=== PATIENT | female | born 1975 | race Caucasian/White ===

== ENCOUNTER 2017-04-30 08:01 | Emergency (ER) | payer MEDICAID, SELFPAY ==
[2017-04-30 08:03] VITALS: BP 126/86; PULSE 102; RESP 31; TEMP 37.6; O2SAT 94; BMI 43.8
[2017-04-30 08:05] VITALS: O2SAT 93
--- NOTE | 2017-04-30 08:17 | EKG12_ITS ---
Test Reason : DIZZY Blood Pressure : / mmHG Vent. Rate : 093 BPM Atrial Rate : 093 BPM P-R Int : 166 ms QRS Dur : 088 ms QT Int : 362 ms P-R-T Axes : 068 057 051 degrees QTc Int : 450 ms Normal sinus rhythm Normal ECG Confirmed by ANNI CROSS, MIGUEL ([id number]), editor map EVON KIRK ([id number]) on 05/01/2017 2:28:38 PM Referred By: TAMMY Confirmed By:MIGUEL HUTTON MD
--- NOTE | 2017-04-30 08:20 | ED.DCSUM_ITS ---
- ER Visit Summary Date of Service: 04/30/17 Chief Complaint: Cough, lightheadedness, near syncope History of Present Illness: The patient is a 41 F who is otherwise healthy presents to the emergency department with influenza type symptoms. Patient states her symptoms began Thursday. She had fever, chills, and myalgias. She states that she had diffuse muscle aches. She had a scant cough. States her cough worsened over that night. She went to urgent care on Thursday morning was diagnosed with bronchitis. She was placed on Tessalon Perles, prednisone, doxycycline. She feels like her cough is improving but she has continued to have fevers and chills. She states she had a difficult time sleeping last night because of the symptoms. When she woke this morning, she was feeling very lightheaded. She states she got up to go use the restroom and felt as if she was going to pass out. She denies any chest pain. She denies any shortness of breath. She states that she feels better now since coming to the emergency department. She has had 2 episodes of vomiting that were not associated with cough. Physical Examination: Vital signs reviewed General: Well-nourished, well-developed Head: Normocephalic, atraumatic Eyes: Pupils equal and reactive, extraocular muscles intact Neck, supple, no lymphadenopathy Heart: Regular rate and rhythm Respiratory: No distress, clear bilaterally Abdomen: Soft, nontender, nondistended, no peritoneal signs Back: Nontender Extremities: Nontender, no edema, no cords Skin: Normal color no rash Neuro: Alert and oriented, no focal or lateralizing deficits Test Results: [] Emergency Department Course and Treatment: Patient symptoms do seem consistent with influenza. IV was established. Screening labs relatively unremarkable. She does have a slight leukopenia. Creatinine was normal. EKG is also normal. There is no prolonged QT, WPW, or other dangerous abnormalities. Her chest x- ray shows questionable infiltrate in the right lateral aspect. The patient is on day 4 of oral antibiotics. She has no hypoxia. Her influenza test was negative, but again in light of her symptoms I still feel that this is more likely influenza than pneumonia. Again, she has already been treated for her pneumonia and will continue her antibiotics. The patient was given IV fluids. She was ambulated. He was feeling markedly improved. She ambulated without symptoms. I did counselor education professor her on continuing her antibiotics even if she feels better. I will write the patient for some anti-emetics. She will continue aggressive oral hydration and antipyretics. She will be discharged home. Treatment Plan: [] Disposition: Discharge Impression: 1. Community-acquired pneumonia 2. Influenza 3. Hypokalemia 4. Lightheadedness This note was generated with [employer] dictation software. It may contain incorrect words, spelling, and punctuation that were not noted in review of the chart prior to signing ED Disposition - Plan for ED Patient: Chief Complaint: Shortness of Breath Instructions: ED Pneumonia Adult Prescriptions: Ondansetron [Zofran Odt] 4 mg PO Q8H PRN PRN #10 tab PRN Reason: Nausea Referrals: Mabel Obregon [Primary Care Provider] -
[2017-04-30 08:35] LABS: Absolute Lymphocyte Count 0.54 X10^3/ul (0.83-4.51); Absolute Neutrophil Count 2.7 X10^3/uL (2.0-7.7); Basophil# 0.01 X10^3/uL; Basophil% 0.3 % (0-1); Eosinophil# 0.01 X10^3/uL; Eosinophils% 0.3 % (0-5); Hematocrit 42.9 % (37-47); Hemoglobin 13.7 g/dl (12.0-15.0); Lymphocyte # 0.54 X10^3/ul (4.0); Lymphocyte % 15.4 % (19-41); Mean Corp Hgb Conc 31.9 g/gl (32-36); Mean Corpuscular Hgb 26.1 pg (27.0-32.0); Mean Corpuscular Volume 81.7 fL (81-99); Mean Platelet Vol. 10.9 fl (6.2-12.0); Monocyte# 0.22 X10^3/uL; Monocyte% 6.3 % (0-10); Neutrophil # 2.72 X10^3/uL (2.7-7.7); Neutrophil % 77.7 % (47-70); Platelet Count 188 K/mm3 (150-450); RBC Distribution Width CV 14.9 % (11.6-14.6); RBC Distribution Width SD 44.7 fl (35.1-43.9); Red Blood Count 5.25 M/mm3 (4.2-5.4); White Blood Count 3.5 K/mm3 (4.4-11.0)
[2017-04-30 08:36] LABS: Differential Indicated SCAN CRITERIA MET; POSITIVE COUNT NO; POSITIVE DIFFERENTIAL YES; POSITIVE MORPHOLOGY NO
[2017-04-30 08:50] LABS: ALB/GLOB Ratio 0.9 RATIO (0.9-2.4); AST(SGOT) 16 U/L (15-37); Alanine Aminotransfer ALT/SGPT 33 U/L (13-56); Albumin, Serum 3.6 g/dL (3.2-5.0); Alkaline Phosphatase 98 U/L (45-117); Anion Gap 11 (5-15); BUN 8 mg/dL (7-18); BUN/Creat Ratio 7.8 RATIO (10-20); Chloride 102 mmol/L (98-107); Creatinine, Serum 1.02 mg/dL (0.55-1.02); EST Glomerular Filtration Rate 64 mL/min (>60); Est Glom Filt Rate - Afr Amer 77 mL/min (>60); Estimated Creatinine Clearance 72.01 ml/min; Glucose 106 mg/dL (74-106); Potassium 3.3 mmol/L (3.5-5.1); Protein, Total 7.6 g/dL (6.4-8.2); Sodium Level 137 mmol/L (136-145)
--- NOTE | 2017-04-30 08:56 | RAD_ITS ---
STUDY: X-RAY CHEST REASON FOR EXAM: Female, 41 years old. Cough. Dizziness. Flulike symptoms. TECHNIQUE: PA and lateral views of the chest. COMPARISON: None. FINDINGS: EKG electrodes are seen. Focal area of infiltration in the lateral aspect of the right middle lobe. Hyperinflation. Scattered calcified granulomas. There is no demonstrated pleural abnormality. Normal size heart. Normal mediastinum and mike. Normal visualized pulmonary arteries. Normal visualized aortic arch and descending thoracic aorta. Normal visualized thoracic spine. Normal visualized ribs, clavicles, and shoulders. There is no demonstrated abnormality of the visualized soft tissue structures of the upper abdomen. RAD/Chest PA and Lateral IMPRESSION: I suspect focal infiltrate in the lateral aspect of the right middle lobe. Follow-up is recommended. Electronically Signed: Kevin Strong MD at 9:16 EST Tel [phone], Service support ,
[2017-04-30 09:28] VITALS: O2SAT 95
[2017-04-30] MEDS: 0.9% Normal Saline 1,000 ML 1000 ML IV (09:44)
[2017-04-30] MEDS: Acetaminophen 500 MG Tablet 1000 MG PO (09:44)
[2017-04-30 09:48] VITALS: BP 142/81; PULSE 90; RESP 23; O2SAT 95
[2017-04-30 10:42] VITALS: O2SAT 97
[2017-04-30 11:10] VITALS: PULSE 89; RESP 20; O2SAT 97
== END 2017-04-30 10:55 | disposition home or self-care (01) ==
PROVIDERS: Emergency Provider Emergency Medicine
DX: J18.9 Pneumonia, unspecified organism (principal); J11.1 Influenza due to unidentified influenza virus with other respiratory manifestations; E87.6 Hypokalemia; R42 Dizziness and giddiness; K21.9 Gastro-esophageal reflux disease without esophagitis; Z72.0 Tobacco use
CPT/HCPCS: 71046; 80053; 85025; 87804; 93005; 99285

== ENCOUNTER 2017-05-05 10:53 | Emergency (ER) | payer MEDICAID, SELFPAY ==
[2017-05-05 10:54] VITALS: BP 148/93; PULSE 79; RESP 18; TEMP 36.6; O2SAT 99; BMI 45.6
--- NOTE | 2017-05-05 11:15 | ED.VISSUMM ---
- ER Visit Summary Date of Service: 05/05/17 Chief Complaint: [Hives] History of Present Illness: The patient is a 41 F [resents the emergency department with hives. She got sick a week ago with sore throat cough runny nose. She started steroids and Tessalon Perles on Thursday after being seen in urgent care. She was brought here by ambulance on . At that time she was diagnosed with influenza and pneumonia. She has been on doxycycline. Her appetite has improved. She continues to have cough and runny nose. This morning she woke up with hives all over her chest and back and upper extremities. They were very itchy. She took a Benadryl but they continued. She was seen back at urgent care who referred her to the emergency department. She has had diarrhea. The cough is nonproductive. She is a smoker. Temperature has been no higher than 99.] Physical Examination: [] Blood pressure 148/93 other vitals within normal limits WN WD NAD PERRL EOMI mild conjunctival injection and periorbital edema and swelling MMM Clear rhinorrhea Serous otitis bilaterally voice is strong NECK supple and nontender, no masses pooling of secretions RRR no murmur rub or gallop, no peripheral edema, symmetric radial pulses CTAB no respiratory distress ABDOMEN is soft and nontender, normal bowel sounds, no distension, no rebound or guarding SKIN is warm and dry to urticarial rash on the chest back and upper extremities Alert and Oriented x3, CN II-XII in tact, no motor or sensory deficits, gait normal No lymphadenopathy Test Results: [] Emergency Department Course and Treatment: [Was given Solu-Medrol and Benadryl as well as fluids. Screening labs are unremarkable except for mild hypokalemia. Potassium was replaced with 40 mEq in the ED. I am unsure if this urticaria is from the doxycycline or from her viral illness. I will start her on a Medrol Dosepak and Benadryl. She will stop doxycycline and start Levaquin.] Treatment Plan: [] Disposition: [Discharge] Impression: [Urticaria] This note was generated with [employer] dictation software. It may contain incorrect words, spelling, and punctuation that were not noted in review of the chart prior to signing ED Disposition - Plan for ED Patient: Chief Complaint: Rash Referrals: Mabel Obregon [Family Provider] -
[2017-05-05] MEDS: 0.9% Normal Saline 1,000 ML 1000 ML IV (11:21)
[2017-05-05] MEDS: DiphenhydrAMINE 50 MG/ML Syringe 25 MG IV (11:21)
[2017-05-05] MEDS: MethylPREDNISolone 125 MG/2 ML Vial IV (11:22)
[2017-05-05 11:27] LABS: Absolute Lymphocyte Count 1.84 X10^3/ul (0.83-4.51); Absolute Neutrophil Count 5.3 X10^3/uL (2.0-7.7); Basophil# 0.01 X10^3/uL; Basophil% 0.1 % (0-1); Eosinophil# 0.02 X10^3/uL; Eosinophils% 0.3 % (0-5); Hematocrit 41.8 % (37-47); Hemoglobin 13.4 g/dl (12.0-15.0); Lymphocyte # 1.84 X10^3/ul (4.0); Lymphocyte % 24.2 % (19-41); Mean Corp Hgb Conc 32.1 g/gl (32-36); Mean Corpuscular Hgb 26.3 pg (27.0-32.0); Mean Platelet Vol. 10.3 fl (6.2-12.0); Monocyte# 0.41 X10^3/uL; Monocyte% 5.4 % (0-10); Neutrophil # 5.29 X10^3/uL (2.7-7.7); Neutrophil % 69.7 % (47-70); POSITIVE COUNT NO; POSITIVE DIFFERENTIAL NO; POSITIVE MORPHOLOGY NO; Platelet Count 254 K/mm3 (150-450); RBC Distribution Width CV 14.5 % (11.6-14.6); RBC Distribution Width SD 43.1 fl (35.1-43.9); White Blood Count 7.6 K/mm3 (4.4-11.0)
[2017-05-05 11:43] LABS: Anion Gap 8 (5-15); BUN 11 mg/dL (7-18); BUN/Creat Ratio 13.4 RATIO (10-20); Calcium,Total 8.5 mg/dL (8.5-10.1); Chloride 101 mmol/L (98-107); Creatinine, Serum 0.82 mg/dL (0.55-1.02); EST Glomerular Filtration Rate 82 mL/min (>60); Est Glom Filt Rate - Afr Amer 100 mL/min (>60); Estimated Creatinine Clearance 86.23 ml/min; Glucose 91 mg/dL (74-106); Potassium 3.2 mmol/L (3.5-5.1); Sodium Level 136 mmol/L (136-145)
--- NOTE | 2017-05-05 12:00 | ED.DEP ---
ED Disposition - Plan for ED Patient: Chief Complaint: Rash Instructions: ED Urticaria Prescriptions: Guaifenesin/Codeine Phosphate [Codeine-Guaifen 10-100 mg/5 ml] 5 ml PO Q8H PRN PRN #100 ml PRN Reason: Cough DiphenhydrAMINE [Benadryl] 25 mg PO TID PRN PRN #20 capsule PRN Reason: Itching Levofloxacin [Levaquin] 500 mg PO DAILY 5 Days #5 tablet MethylPREDNISolone DosePak [Medrol DosePak] 4 mg PO UD #1 box Referrals: [facility]Mabel Lacey [Family Provider] - 3-5 Days if not improving
[2017-05-05 12:10] VITALS: BP 152/93; PULSE 77; RESP 16; O2SAT 98
== END 2017-05-05 12:20 | disposition home or self-care (01) ==
LOC: ED 11:23
PROVIDERS: Emergency Provider Emergency Medicine; PCP Family Medicine
DX: L50.9 Urticaria, unspecified (principal); F41.9 Anxiety disorder, unspecified; Z72.0 Tobacco use
CPT/HCPCS: 80048; 85025; 96361; 96374; 96375; 99283; J7030; A4216

== ENCOUNTER 2017-09-19 05:18 | Emergency (ER) | payer MEDICAID, SELFPAY ==
[2017-09-19 05:19] VITALS: BP 142/97; PULSE 95; RESP 20; TEMP 37.1; O2SAT 95; BMI 39.2
[2017-09-19 06:08] LABS: Absolute Lymphocyte Count 0.74 X10^3/ul (0.83-4.51); Absolute Neutrophil Count 1.4 X10^3/uL (2.0-7.7); Basophil# 0.02 X10^3/uL; Basophil% 0.8 % (0-1); Eosinophil# 0.02 X10^3/uL; Eosinophils% 0.8 % (0-5); Hematocrit 34.6 % (37-47); Hemoglobin 11.1 g/dl (12.0-15.0); Lymphocyte # 0.74 X10^3/ul (4.0); Lymphocyte % 30.8 % (19-41); Mean Corp Hgb Conc 32.1 g/gl (32-36); Mean Corpuscular Hgb 24.3 pg (27.0-32.0); Mean Corpuscular Volume 75.9 fL (81-99); Mean Platelet Vol. 9.6 fl (6.2-12.0); Monocyte# 0.18 X10^3/uL; Monocyte% 7.5 % (0-10); Neutrophil # 1.43 X10^3/uL (2.7-7.7); Neutrophil % 59.7 % (47-70); Platelet Count 181 K/mm3 (150-450); RBC Distribution Width CV 16.2 % (11.6-14.6); RBC Distribution Width SD 43.5 fl (35.1-43.9); Red Blood Count 4.56 M/mm3 (4.2-5.4); White Blood Count 2.4 K/mm3 (4.4-11.0)
[2017-09-19 06:10] LABS: POSITIVE COUNT NO; POSITIVE DIFFERENTIAL NO; POSITIVE MORPHOLOGY NO
[2017-09-19] MEDS: 0.9% Normal Saline 1,000 ML 1000 ML IV (06:21)
[2017-09-19] MEDS: Ondansetron 4 MG/2 ML Vial IV (06:22)
[2017-09-19] MEDS: Ketorolac 30 MG/ML Syringe IV (06:22)
[2017-09-19 06:23] LABS: AST(SGOT) 18 U/L (15-37); Alanine Aminotransfer ALT/SGPT 27 U/L (13-56); Albumin, Serum 3.3 g/dL (3.2-5.0); Alkaline Phosphatase 93 U/L (45-117); Anion Gap 9 (5-15); BUN 5 mg/dL (7-18); BUN/Creat Ratio 5.4 RATIO (10-20); Bilirubin, Direct 0.09 mg/dL (0.00-0.30); Chloride 103 mmol/L (98-107); Creatinine, Serum 0.93 mg/dL (0.55-1.02); EST Glomerular Filtration Rate 71 mL/min (>60); Est Glom Filt Rate - Afr Amer 86 mL/min (>60); Estimated Creatinine Clearance 75.28 ml/min; Globulin 3.7 g/dL (2.2-4.2); Glucose 115 mg/dL (74-106); Lipase 80 U/L (73-393); Sodium Level 137 mmol/L (136-145)
[2017-09-19 06:35] LABS: Pregnancy, Serum, hCG Quali. NEGATIVE Negative (0-9 Nonpreg)
--- NOTE | 2017-09-19 07:00 | ED.DCSUM_ITS ---
- ER Visit Summary Date of Service: 09/19/17 Chief Complaint: Abdominal pain History of Present Illness: The patient is a [address] Hall. She reports that she has abdominal pain began 2 days ago. It is a continuous sharp epigastric pain. She reports that she feels bloated and gassy. Pain is 8 out of 10 at worst and 6 out of 10 currently. It is worsened by nothing including food. It is been unrelieved by Gas-X or Dulcolax. She reports is been nauseated and vomited once. No blood or emesis. Her last bowel was yesterday. She has had no diarrhea. No dysuria or frequency. She is on her menstrual period now. Patient has not had this previously. She denies any specific fatty or spicy food intolerance. Physical Examination: Vitals: Stable. Afebrile. General: Well-nourished and well-developed. Head: Normocephalic atraumatic. Neck: Supple, no lymphadenopathy. No JVD. Nontender. Cardiovascular: Regular rate and rhythm. No murmurs. Respiratory: No respiratory distress. Clear to auscultation bilaterally. Abdominal: Soft, mild epigastric tenderness to palpation, nondistended, normal bowel sounds. No guarding, rebound, or peritoneal signs. Back: Nontender. Extremities: Nontender, no edema. Skin: Normal color, no rash. Neurologic: Alert and oriented ?3. Cranial nerves II through XII are intact. Normal strength and sensation. Psych: Normal affect. Test Results: CBC is marked for white count of 2.4, hemoglobin of 11.1, hematocrit 34.6. Chem-7 marked potassium 3.0, glucose 115, BUN 5, calcium 8.0. LFTs are normal. Lipase normal. test is negative. Emergency Department Course and Treatment: Patient was treated with a dose of Toradol and Zofran IV. She was given a GI cocktail p.o. and had immediate relief. She refused potassium. Treatment Plan: Patient is already on omeprazole. She will have Zantac added to her regimen. Instructed follow-up Dr. Victoria in 1 week if not improving. Did discuss the possibility of endoscopy to rule out an ulcer. She was given the phone number for Dr. Lowe to follow-up with his as needed. Return to the emergency department for any worsening symptoms. Disposition: To home in improved and stable condition. Impression: 1. Epigastric abdominal pain. This note was generated with [employer] dictation software. It may contain incorrect words, spelling, and punctuation that were not noted in review of the chart prior to signing ED Disposition - Plan for ED Patient: Disposition: Home or Assisted Living Chief Complaint: Abd Pain Instructions: ED PUD Vs Gastritis Prescriptions: Ranitidine [Zantac] 300 mg PO DAILY #30 tablet Referrals: Elfego Hall MD [Primary Care Provider] - 1 Week if not improving Melinda Lowe MD [STAFF PHYSICIAN] -
[2017-09-19 07:22] VITALS: BP 137/76; PULSE 74; RESP 18; O2SAT 99
[2017-09-19 07:23] VITALS: BP 137/76; PULSE 74; RESP 18; O2SAT 99
== END 2017-09-19 07:23 | disposition home or self-care (01) ==
PROVIDERS: Emergency Provider Emergency Medicine; PCP Family Medicine
DX: R10.13 Epigastric pain (principal); R11.2 Nausea with vomiting, unspecified; R51 Headache; K21.9 Gastro-esophageal reflux disease without esophagitis; F17.200 Nicotine dependence, unspecified, uncomplicated
CPT/HCPCS: 80048; 80076; 83690; 84703; 85025; 99285; J7030; J2405

== ENCOUNTER 2017-12-09 13:04 | Emergency (ER) | payer MEDICAID, SELFPAY ==
[2017-12-09 13:05] VITALS: BP 164/93; PULSE 77; RESP 18; TEMP 36.6; O2SAT 98; BMI 37.1
--- NOTE | 2017-12-09 13:08 | EKG12_ITS ---
Test Reason : CP FOR 3 WEEKS Blood Pressure : / mmHG Vent. Rate : 086 BPM Atrial Rate : 086 BPM P-R Int : 170 ms QRS Dur : 086 ms QT Int : 406 ms P-R-T Axes : 060 060 053 degrees QTc Int : 485 ms Normal sinus rhythm Prolonged QT Abnormal ECG Confirmed by DARRELL CROSS, FINA ([id number]), photo editor EVON KIRK ([id number]) on 12/10/2017 1:32:36 PM Referred By: NAHUM Confirmed By:FINA RAMÍREZ MD
--- NOTE | 2017-12-09 13:12 | RAD_ITS ---
STUDY: X-RAY CHEST REASON FOR EXAM: Female, 42 years old. 2 week history of chest pain. TECHNIQUE: Single AP portable view of the chest. COMPARISON: Comparison is made with prior study dated April 30, 2017. FINDINGS: Hyperinflation. The lungs are clear. There is no demonstrated pleural abnormality. Normal size heart. Normal mediastinum and mike. Normal visualized pulmonary arteries. Normal visualized aortic arch and descending thoracic aorta. Normal visualized thoracic spine. Normal visualized ribs, clavicles, and shoulders. There is no demonstrated abnormality of the visualized soft tissue structures of the upper abdomen. RAD/Chest 1 View (Portable) IMPRESSION: Hyperinflation. Electronically Signed: Kevin Strong MD at 14:11 EDT Tel [phone], Service support ,
[2017-12-09 13:29] LABS: Absolute Neutrophil Count 4.5 X10^3/uL (2.0-7.7); Basophil% 0.3 % (0-1); Hematocrit 37.7 % (37-47); Hemoglobin 11.6 g/dl (12.0-15.0); Lymphocyte # 1.44 X10^3/ul (4.0); Lymphocyte % 21.8 % (19-41); Mean Corp Hgb Conc 30.8 g/gl (32-36); Mean Corpuscular Hgb 23.4 pg (27.0-32.0); Monocyte% 7.3 % (0-10); Neutrophil # 4.54 X10^3/uL (2.7-7.7); Neutrophil % 68.4 % (47-70); Platelet Count 266 K/mm3 (150-450); RBC Distribution Width CV 16.5 % (11.6-14.6); Red Blood Count 4.96 M/mm3 (4.2-5.4); White Blood Count 6.6 K/mm3 (4.4-11.0)
[2017-12-09 13:30] LABS: Absolute Lymphocyte Count 1.44 X10^3/ul (0.83-4.51); Basophil# 0.02 X10^3/uL; Eosinophil# 0.13 X10^3/uL; Monocyte# 0.48 X10^3/uL
[2017-12-09 13:32] LABS: POSITIVE COUNT NO; POSITIVE DIFFERENTIAL NO; POSITIVE MORPHOLOGY NO
[2017-12-09 13:44] LABS: Anion Gap 10 (5-15); BUN 7 mg/dL (7-18); BUN/Creat Ratio 8.3 RATIO (10-20); Calcium,Total 8.5 mg/dL (8.5-10.1); Chloride 104 mmol/L (98-107); Creatinine, Serum 0.84 mg/dL (0.55-1.02); EST Glomerular Filtration Rate 79 mL/min (>60); Est Glom Filt Rate - Afr Amer 96 mL/min (>60); Estimated Creatinine Clearance 83.34 ml/min; Glucose 100 mg/dL (74-106); Potassium 3.6 mmol/L (3.5-5.1); Sodium Level 138 mmol/L (136-145)
[2017-12-09 14:16] VITALS: BP 155/74; PULSE 86; RESP 16; O2SAT 100
[2017-12-09 14:27] LABS: D-Dimer Quantitative (DVT/PE) 1.05 FEU/ug/m (0.27-0.49)
--- NOTE | 2017-12-09 14:29 | CT_ITS ---
STUDY: CTA CHEST REASON FOR EXAM: Female, 42 years old. 2 week history of intermittent chest pain. Elevated d-dimer. RADIATION DOSAGE (If Supplied By Facility): CTDIvol = ( 13.4 ) mGy, DLP = ( 698.11 ) mGycm TECHNIQUE: The examination was performed with the intravenous administration of 100 ml of Isovue 370 contrast material. Post-processing of the angiographic images was performed, with multiplanar reformation and 3D reconstruction. Individualized dose optimization techniques were used for this CT. COMPARISON: None. FINDINGS: Small bilateral axillary lymph nodes. Small nonocclusive intraluminal filling defects are seen in the branches of the right interlobar artery. Nonocclusive intraluminal filling defects in the right upper lobe pulmonary arterial branches. Normal thoracic aorta and visualized great vessels. There is no demonstrated aortic dissection. Normal heart and pericardium. Normal mediastinum. Normal hilar regions. Normal visualized trachea and bronchi. The lungs are well expanded. Normal pulmonary parenchyma. Normal pleura. Normal chest wall structures. Normal osseous structures. Normal visualized upper abdomen. CT/CTA Chest W/WO Contrast IMPRESSION: Nonocclusive intraluminal filling defects in branches of the right interlobar pulmonary artery as well as branches of the right upper lobe pulmonary artery. Electronically Signed: Kevin Strong MD at 15:18 EDT Tel [phone], Service support ,
[2017-12-09] MEDS: hydrOXYzine PAM 25 MG Capsule PO (14:36)
--- NOTE | 2017-12-09 15:54 | ED.DCSUM_ITS ---
- ER Visit Summary Date of Service: 12/09/17 Chief Complaint: [Chest pain] History of Present Illness: The patient is a 42 F [presented to the emergency department chest discomfort started 2 weeks ago. Patient's had intermittent pain lasting up to 45 seconds at the time. Patient describes it as sharp and stabbing. Patient now having the pain about 3-5 times a day. Times pain radiates to her left arm. Patient at times will feel slightly diaphoretic. She denies any significant shortness of breath. She has had a chronic cough. Patient is a smoker. Patient does have a history of hypertension, anxiety, and GERD. Patient states that this does not feel like GERD or her anxiety. Patient has not had recent travel or surgery. She has no history of PE or DVT.] Physical Examination: [HEENT-PERRLA, EOMI. Cranial nerves II through XII grossly intact. TMs clear. Mucous membranes moist. No adenopathy. Cardiovascular-regular rate and rhythm without murmur or ectopy Lungs-clear to auscultation, chest wall stable without crepitus or subcu emphysema Abdomen-normoactive bowel sounds, soft, nontender, no rebound or rigidity, no peritoneal signs. Extremities-intact ?4, normal range of motion, normal pulses, atraumatic] Test Results: [EKG obtained on arrival showed a sinus rhythm with a ventricular rate of 86 bpm with no acute I segment changes. CBC with differential obtained showed a white count of 6.6, hemoglobin 11.6, hematocrit 38, platelets 266. Chemistries were normal. Troponin was less than 0.015. D-dimer obtained was elevated at over 1 therefore a CTA of the chest was obtained which showed nonocclusive filling defects in the right upper lobe as well as the right interlobar artery consistent with pulmonary emboli.] Emergency Department Course and Treatment: [Patient was advised of findings of CT. She will be started on Eliquis.] Treatment Plan: [I will attempt to discuss case with patient's primary care physician and will start patient on Eliquis. I feel patient can be treated as an outpatient as she is hemodynamically stable. Patient having no respiratory distress.] Disposition: [Discharged home in stable condition] Impression: [Pulmonary emboli right-sided] This note was generated with [employer] software. It may contain incorrect words, spelling, and punctuation that were not noted in review of the chart prior to signing ED Disposition - Plan for ED Patient: Chief Complaint: Chest Pain Referrals: Elfego Hall MD [Primary Care Provider] -
--- NOTE | 2017-12-09 15:54 | ED.DEP ---
ED Disposition - Plan for ED Patient: Chief Complaint: Chest Pain Instructions: Discharge Instructions for Pulmonary Embolism Prescriptions: Apixaban [Eliquis] 5 mg PO BID #70 tab Referrals: Elfego Hall MD [Primary Care Provider] - 3-5 Days
[2017-12-09] MEDS: APIXABAN 5 MG TABLET 10 MG PO (16:22)
[2017-12-09 16:23] VITALS: BP 140/79; PULSE 78; RESP 16; O2SAT 99
--- NOTE | 2017-12-09 16:27 | NURSING ---
[address] GRAMAJO OFFICE FOR DR ALEJANDRO. 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
== END 2017-12-09 16:29 | disposition home or self-care (01) ==
PROVIDERS: Emergency Provider Emergency Medicine; Family Provider Family Medicine; PCP Family Medicine
DX: I26.99 Other pulmonary embolism without acute cor pulmonale (principal); I10 Essential (primary) hypertension; K21.9 Gastro-esophageal reflux disease without esophagitis; Z72.0 Tobacco use; F41.9 Anxiety disorder, unspecified
CPT/HCPCS: 71045; 71275; 80048; 84484; 85025; 85379; 93005; 99284; Q9967

== ENCOUNTER 2018-05-01 18:21 | Emergency (ER) | payer MEDICAID, SELFPAY ==
[2018-05-01 18:21] VITALS: BMI 43.8
[2018-05-01 18:22] VITALS: BP 159/90; PULSE 79; RESP 18; TEMP 36.3; O2SAT 100; BMI 37.1
[2018-05-01 18:31] VITALS: BP 170/86; PULSE 80; RESP 17; O2SAT 98
--- NOTE | 2018-05-01 18:34 | RAD_ITS ---
STUDY: X-RAY CHEST REASON FOR EXAM: Female, 42 years old. Left-sided chest pain TECHNIQUE: AP COMPARISON: 12/09/2017 FINDINGS: EKG leads project over the chest. The lungs are clear and expanded. There is no demonstrated pleural abnormality. Normal size heart. Normal mediastinum and mike. Normal visualized pulmonary arteries. Normal visualized aortic arch and descending thoracic aorta. Normal visualized thoracic spine. Normal visualized ribs, clavicles, and shoulders. There is no demonstrated abnormality of the visualized soft tissue structures of the upper abdomen. RAD/Chest 1 View (Portable) IMPRESSION: Stable, nonacute portable x-ray examination of the chest. Electronically Signed: Sameer Steve MD at 18:55 EST , Service support ,
--- NOTE | 2018-05-01 18:34 | EKG12_ITS ---
Test Reason : CP Blood Pressure : / mmHG Vent. Rate : 079 BPM Atrial Rate : 079 BPM P-R Int : 192 ms QRS Dur : 090 ms QT Int : 420 ms P-R-T Axes : 060 062 048 degrees QTc Int : 481 ms Normal sinus rhythm Prolonged QT Abnormal ECG Confirmed by DARRELL CROSS, FINA ([id number]), society editor EVON KIRK ([id number]) on 05/04/2018 8:32:16 AM Referred By: PANFILO Confirmed By:FINA RAMÍREZ MD
[2018-05-01] MEDS: Aspirin 81 MG TAB.CHEW 324 MG PO (18:40)
--- NOTE | 2018-05-01 18:49 | ED.VISSUMM ---
- ER Visit Summary Date of Service: 05/01/18 Chief Complaint: Chest pain History of Present Illness: The patient is a 42 F who has 2 days of chest pain. She describes as an aching in the left chest. It does not radiate. Stress has been making it worse. Nothing really makes it better. She does admit to some mild shortness of breath. No nausea or vomiting. The patient had a PE in the fall and was put on Eliquis. She has now been off of it for 1 month. She also complains of some vague joint pains in her elbows, knees and right hand. She saw her PCP yesterday who did blood work but she does not know the results of this. Physical Examination: Vital signs reviewed. HEENT exam unremarkable. Heart is regular rate and rhythm without murmurs. Lungs are clear to auscultation. Abdomen is soft and nontender. Extremities reveal no edema. Peripheral pulses are equal. Skin exam normal. Neurologic exam normal. Test Results: EKG is sinus rhythm with a rate of 79. No ST changes. Labs are unremarkable except hemoglobin 9.3. D-dimer however is 1.24. CT of the chest reveals no PE. Emergency Department Course and Treatment: She was medicated with aspirin. She has been under a lot of stress and I feel this is likely the cause of her pain. She has no PE. I do not feel that this is cardiac in nature. Patient will be discharged to follow-up with her PCP. Treatment Plan: [] Disposition: Discharge Impression: Chest pain This note was generated with [employer] dictation software. It may contain incorrect words, spelling, and punctuation that were not noted in review of the chart prior to signing ED Disposition - Plan for ED Patient: Referrals: Elfego Hall MD [Primary Care Provider] -
[2018-05-01 19:00] VITALS: BP 163/84; PULSE 80; RESP 18; O2SAT 95
[2018-05-01 19:07] LABS: Absolute Lymphocyte Count 1.63 X10^3/ul (0.83-4.51); Absolute Neutrophil Count 3.5 X10^3/uL (2.0-7.7); Basophil# 0.03 X10^3/uL; Basophil% 0.5 % (0-1); Eosinophil# 0.11 X10^3/uL; Eosinophils% 1.9 % (0-5); Hemoglobin 9.3 g/dl (12.0-15.0); Lymphocyte # 1.63 X10^3/ul (4.0); Lymphocyte % 28.4 % (19-41); Mean Corp Hgb Conc 29.1 g/gl (32-36); Mean Corpuscular Hgb 20.3 pg (27.0-32.0); Mean Corpuscular Volume 69.9 fL (81-99); Mean Platelet Vol. 10.5 fl (6.2-12.0); Monocyte# 0.42 X10^3/uL; Monocyte% 7.3 % (0-10); Neutrophil # 3.53 X10^3/uL (2.7-7.7); Neutrophil % 61.7 % (47-70); Platelet Count 290 K/mm3 (150-450); RBC Distribution Width CV 18.1 % (11.6-14.6); RBC Distribution Width SD 46.1 fl (35.1-43.9); Red Blood Count 4.58 M/mm3 (4.2-5.4); White Blood Count 5.7 K/mm3 (4.4-11.0)
[2018-05-01 19:13] LABS: Differential Indicated SCAN CRITERIA MET; POSITIVE COUNT NO; POSITIVE DIFFERENTIAL NO; POSITIVE MORPHOLOGY YES
[2018-05-01 19:15] LABS: Anion Gap 7 (5-15); BUN 12 mg/dL (7-18); BUN/Creat Ratio 13.9 RATIO (10-20); Calcium,Total 8.5 mg/dL (8.5-10.1); Chloride 106 mmol/L (98-107); Creatinine, Serum 0.86 mg/dL (0.55-1.02); EST Glomerular Filtration Rate 77 mL/min (>60); Est Glom Filt Rate - Afr Amer 93 mL/min (>60); Glucose 95 mg/dL (74-106); Potassium 3.8 mmol/L (3.5-5.1); Sodium Level 137 mmol/L (136-145)
[2018-05-01 19:27] LABS: Anisocytosis 1+
[2018-05-01 19:28] LABS: Polychromasia RARE
[2018-05-01 19:29] LABS: Differential Comment SCANNED
[2018-05-01 19:34] LABS: D-Dimer Quantitative (DVT/PE) 1.24 FEU/ug/m (0.27-0.49)
--- NOTE | 2018-05-01 19:35 | ED.RN ---
notified d-dimer 1.24
--- NOTE | 2018-05-01 19:38 | CT_ITS ---
HISTORY: ELEVATED DDIMER, PT STATED CHEST PAIN, HX OF PE TECHNIQUE: Helically acquired images were obtained of the chest following IV contrast as per pulmonary angiogram protocol with 3D reconstructions. A radiation dose optimization technique was used for this scan. IV Contrast dosage and agent: 100 cc Isovue-370 administered intravenously. COMPARISON: None FINDINGS: # of images incl. paperwork: [id number] UPPER ABDOMEN: Unremarkable. PULMONARY ARTERIES: Normal in caliber. No pulmonary embolism. AORTA AND GREAT VESSELS: Normal in caliber. No evidence of dissection. HEART AND PERICARDIUM: Heart size is normal. There is no pericardial effusion. No signs of right heart strain. MEDIASTINUM AND REAGAN: There is no mediastinal or hilar adenopathy. Esophagus is unremarkable. There is no hiatal hernia. SOFT TISSUES: Multinodular thyroid. There is no axillary, supraclavicular or lower cervical adenopathy. LUNGS AND LARGE AIRWAYS: Clear. PLEURA: Unremarkable. No pleural effusion or thickening. BONES: No suspicious lytic or blastic abnormality observed. CT/CTA Chest W/WO Contrast IMPRESSION: No pulmonary embolus or acute finding. Multinodular thyroid. Individualized dose optimization techniques were used for this CT. at 2127 Reported and signed by: Jesus Love MD Electronically Signed: Jesus Love, at 21:26 EST Tel , Service support ,
[2018-05-01 20:07] VITALS: BP 142/72; PULSE 80; RESP 17; O2SAT 100
--- NOTE | 2018-05-01 21:32 | ED.DEP ---
ED Disposition - Plan for ED Patient: Disposition: Home or Assisted Living Instructions: ED Chest Pain Atypical Unkn Cause Referrals: Elfego Hall MD [Primary Care Provider] -
[2018-05-01 21:46] VITALS: BP 162/99; PULSE 80; RESP 16
== END 2018-05-01 21:47 | disposition home or self-care (01) ==
PROVIDERS: Emergency Provider Emergency Medicine; Family Provider Family Medicine; PCP Family Medicine
DX: R07.9 Chest pain, unspecified (principal); Z72.0 Tobacco use
CPT/HCPCS: 71045; 71275; 80048; 84484; 85025; 85379; 93005; 99285; Q9967; A4216

== ENCOUNTER 2019-12-15 11:13 | Inpatient (IN) | payer MEDICAID, SELFPAY ==
[2019-12-15 11:14] VITALS: BP 144/99; PULSE 99; RESP 16; TEMP 36.6; O2SAT 97; BMI 37.1
--- NOTE | 2019-12-15 11:49 | ED.VISSUMM ---
- ER Visit Summary Date of Service: 12/15/19 Chief Complaint: Alcohol detox History of Present Illness: The patient is a 44 F who presents for alcohol detox. Patient states she normally drinks a liter of gin per day. Patient states her last drink was 30 to 40 minutes ago. Patient has never been through detox before. Patient denies any suicidal or homicidal ideations. Patient does admit to some mild tremors and palpitations. Patient also admits to some nausea, vomiting, diarrhea. Patient denies any seizures. Patient denies any hallucinations. Patient denies any fevers or rashes. Patient also admits to some pain in her upper molars. Patient has not seen a dentist for this yet. Patient thinks that the left upper second molar has chipped and broken off. Physical Examination: Vital signs are stable. Patient is afebrile. Patient is in no acute distress. Oral mucosa is pink and moist. There are dental caries noted over the upper second molars bilaterally. There is mild gingival edema. There is no discharge or drainage. Neck is supple. Trachea is midline. There is no JVD noted. Heart was regular rate and rhythm. Lungs are clear and equal bilaterally. Abdomen is soft. Bowel sounds are normal. There is no tenderness. There is no rebound or guarding noted. Skin is warm dry. Cranial nerves II through XII are intact. There are no focal motor or sensory deficits noted. Extremities are intact. There is no calf tenderness or edema. Test Results: Serum alcohol level was elevated at 316. CBC and metabolic profile were essentially within normal limits. Urinalysis does not show any evidence of urinary tract infection. Urine tox screen was negative. Emergency Department Course and Treatment: Patient was given oral Ativan and phenobarbital. Case was discussed with the hospitalist. She will admit the patient to her service. Patient understood and was agreeable with the plan. All questions were answered Disposition: Admit to hospital Impression: 1. Alcohol dependence This note was generated with [employer] dictation software. It may contain incorrect words, spelling, and punctuation that were not noted in review of the chart prior to signing ED Disposition - Plan for ED Patient: Disposition: Acute Care Hospital [facility] Diagnosis: Alcohol dependence
--- NOTE | 2019-12-15 11:53 | NURSING ---
MED SURG WHITE ALCOHOL DEPENDENCE
[2019-12-15 11:55] LABS: Mucous, Urine 0 SEEN /hpf (<or=2+); Red Blood Cells-Urine 0 SEEN /hpf (0-5)
[2019-12-15] MEDS: LORazepam 1 MG Tablet PO (11:55)
[2019-12-15] MEDS: Phenobarbital 32.4 MG Tablet PO ×3 (11:55→21:15)
[2019-12-15 12:02] VITALS: BP 138/87; PULSE 97; RESP 18; TEMP 36.1; O2SAT 99
[2019-12-15] MEDS: Penicillin Vk 250 MG Tablet 500 MG PO (12:10)
[2019-12-15 12:13] LABS: Internal QC Validated? YES +Cl - CLEAR BKGD; Pregnancy, Serum, hCG Quali. NEGATIVE Negative
--- NOTE | 2019-12-15 12:18 | HP.PCM_ITS ---
Problem List (1) Alcohol withdrawal Status: Acute Qualifiers: Complication of substance-induced condition: uncomplicated Qualified Code(s): F10.230 - Alcohol dependence with withdrawal, uncomplicated (2) Dental infection Status: Acute (3) Elevated BP without diagnosis of hypertension Status: Acute (4) Hyperglycemia Status: Acute (5) Morbid obesity Status: Chronic (6) GERD (gastroesophageal reflux disease) Status: Acute (7) Anxiety and depression Status: Chronic (8) History of pulmonary embolism Status: Chronic (9) Panic attacks Status: Chronic (10) Microcytic anemia Status: Chronic (11) Elevated liver enzymes Status: Chronic (12) Tobacco use Status: Chronic History of Present Illness Date of Admission: 12/15/19 Chief Complaint: EtOH detoxification, withdrawal The patient is a 44 y/o F w/ PMHx: GERD, Anxiety and Depression, uncontrolled with admitted panic attacks associated with her EtOH abuse, Hx PE ~ 2 years prior with anticoagulation at that time but no specific provoking factors per discussion with patient with no hypercoagulability evaluation that time but no further issues since, Morbid obesity, Tobacco use who presents to the [facility] ED on 12/15/19 with self directed presentation for alcohol withdrawal treatment with last intake approximately 1 hour prior to ED arrival with admitted every 4 hours intake more recently over the last several weeks 1 L of see grams gin the previous to this 1/5 daily with onset nausea, tremors, agitation, diarrhea if not strict with the timeline of intake. Patient has never presented previously for alcohol withdrawal treatment. She is eager to be sober and notes that her father is a recovered alcoholic of 9 years. She lives alone with her daughter who is 16. She states that she previously was on Effexor for anxiety but this made her very sleepy with continued elevations of this regimen. She also notes that her doctor had given her Vistaril for anxiety and panic but this makes her sleep for several hours. Discussed frankly in the emergency room that given this is associate with patient's anxiety aggressive outpatient treatment including reattempt at medication and therapy would be appropriate as well as ongoing treatment for her substance abuse. Patient also complained concurrently of significant specific focal tooth pain and gum pain with initiation on oral penicillin per ED physician for concern for oh Westley genic infection. In the ED included T 97.9, heart rate 99, BP 144/99, respiratory rate 16, 97% on room air, CBC with WC 3.1, hemoglobin 8.4, MCV 68.9, platelet 134 with no significant shift, CMP with potassium 3.2, glucose 130, AST/ALT 101/66, lipase 29, negative testing, urinalysis not marked appearing, urine drug screen unremarkable, ethyl alcohol level 316. In the ED given onset of symptoms patient was administered low-dose phenobarbital x1 as well as Ativan 1 mg p.o. x1. Past Medical History Past Medical History (Chronic Problems): Chronic Problems Morbid obesity (Chronic) Tobacco use (Chronic) Anxiety and depression (Chronic) History of pulmonary embolism (Chronic) Panic attacks (Chronic) Microcytic anemia (Chronic) Elevated liver enzymes (Chronic) Allergies cinnamon Allergy (Verified 12/15/19 11:14) Rash Home Medications: Ambulatory Orders Medication Instructions Recorded Hydroxyzine Pamoate [Vistaril] 50 mg PO TID PRN PRN 04/30/17 Omeprazole 40 mg PO DAILY 04/30/17 Surgical History: - - Section x1, bilateral tubal ligation. Psychiatric History: Anxiety, Depression LOGGING ASSISTANT History: No pertinent LOGGING ASSISTANT history Lives: With Family - Patient lives alone with her 16-year-old daughter. Smoking Status: Heavy Smoker (>10/day) Tobacco Use: Cigarettes - Patient with ongoing 1 to 1.5 pack/day cigarette tobacco usage since youth. Alcohol: Heavy - Patient with ongoing gin intake currently 1 L daily over the last several weeks but previous to this 1/5 daily. Drugs: None - *Family History Maternal History Items: - - Patient notes a maternal family history of substance abuse including alcohol and illicit drugs. Denies any market additional history including heart disease, diabetes or cancer. Paternal History Items: - - Patient notes a paternal family history of alcohol abuse, sober x9 years. Denies any market additional history including heart disease, diabetes or cancer. Review of Systems Constitutional: Reports: Malaise, Weakness, Fatigue. Denies: Anorexia, Chills, Fever, Weight Change HEENT: Reports: - - Dental pain.. Denies: Head Aches, Sinus Congestion, Sinus Drainage Cardiovascular: Reports: Light Headedness. Denies: Chest Pain, Chest Pressure, Chest Tightness, Heaviness, Orthopnea, Palpitations, Syncope Respiratory: Denies: Cough, Shortness of Breath, Shortness of breath at rest, Shortness of breath upon exertion, Sputum production Gastrointestinal: Reports: Diarrhea, Nausea. Denies: Abdominal Pain, Vomiting Genitourinary: Denies: Dysuria Musculoskeletal: Reports: Joint Pain. Denies: Joint Tenderness Skin: Denies: Rash, Wounds Neurological: Reports: Tremor. Denies: Focal weakness, Numbness, Tingling Psychiatric: Reports: Anxiety, Depression. Denies: Homicidal Ideations, Suicidal Ideations Hematologic/ Lymphatic: Reports: Anemia. Denies: Easy Bruising, Easy Bleeding VTE Information - Inpt Only VTE Present on Admission: No VTE Mechan Device Prophylaxis: None VTE Pharm Prophylaxis ordered?: No Reason prophylaxis not ordered:: Treatment Not Indicated Patient Problems: Active and Suspected Problems Alcohol dependence (Acute) Alcohol withdrawal (Acute) Elevated BP without diagnosis of hypertension (Acute) GERD (gastroesophageal reflux disease) (Acute) Hyperglycemia (Acute) Dental infection (Acute) Subjective: Patient seated upright in the ED bed, fatigued, anxious, intermittent panic evident. Objective: Physical Examination: General: awake, alert, oriented x 3 and cooperative, seated upright in the ED bed, anxious, intermittently panicking, tearful occasionally. Skin: normal color, turgor, no icterus, cyanosis. HEENT: AT/NC, EOMI, PERRLA, moderately dry MM, evidence of dental gum inflammation and pain with palpation of molars upper second bilaterally. Lungs: CTA bilaterally, moderate effort, mild decrease BL bases, no rales, ronchi or wheezing. Heart: Mildly tachycardic with regular rhythm; no gallop, rub audible. Abdomen: soft, morbidly obese, NTTP, ND, normal BS, difficult to assess HSM secondary to habitus. Extremities: no cyanosis, clubbing, or edema. Neurological: patient awake, alert, oriented x 3; cognitive function intact; pupils equally reactive to light and accomodation; cranial nerves II-XII grossly normal, moving all 4 extremities, no focal deficits, strength mildly to mo derately global decrease secondary to acute presentation, tremors evident, intermittently panicking. Psychiatric: affect appears anxious, tearful, intermittent panic evident, admits to depression and anxiety ongoing, untreated. - Physical Exam Vitals/I&O's: Vital Signs Temp Pulse Resp BP Pulse Ox 97 F L 97 18 138/87 H 99 12/15/19 12:02 12/15/19 12:02 12/15/19 12:02 12/15/19 12:02 12/15/19 12:02 Oxygen Delivery Method Room Air Weight: 230 lb Body Mass Index (BMI) 37.1 Laboratory Results 12/15/19 11:50: Urine Color Pending, Urine Clarity Pending, Urine pH Pending, Ur Specific [place] Pending, Urine Protein Pending, Urine Glucose (UA) Pending, Urine Ketones Pending, Urine Occult Blood Pending, Urine Nitrite Pending, Urine Bilirubin Pending, Urine Urobilinogen Pending, Ur Leukocyte Esterase Pending, Urine RBC Pending, Urine WBC Pending, Ur Squamous Epith Cells Pending, Urine Bacteria Pending, Urine Mucus Pending 12/15/19 11:50: Urine Opiates Screen Pending, Urine Methadone Screen Pending, Ur Barbiturates Screen Pending, Ur Phencyclidine Scrn Pending, Ur Amphetamines Screen Pending, U Methamphetamin-MDMA Pending, U Benzodiazepines Scrn Pending, Urine Cocaine Screen Pending, U Cannabinoids Screen Pending, Ur Drug Screen Comment 12/15/19 11:58: WBC Pending, RBC Pending, Hgb Pending, Hct Pending, MCV Pending, MCH Pending, MCHC Pending, RDW Std Deviation Pending, RDW Coeff of Janey Pending, Plt Count Pending, Neut % (Auto) Pending, Absolute Neuts (auto) Pending 12/15/19 11:58: Sodium Pending, Potassium Pending, Chloride Pending, Carbon Dioxide Pending, Anion Gap Pending, BUN Pending, Creatinine Pending, Est GFR (MDRD) Af Amer Pending, Est GFR (MDRD) Non-Af Pending, BUN/Creatinine Ratio Pending, Glucose Pending, Calcium Pending, Total Bilirubin Pending, AST Pending, ALT Pending, Alkaline Phosphatase Pending, Total Protein Pending, Albumin Pending, Lipase Pending 12/15/19 11:58: Ethyl Alcohol Pending 12/15/19 11:58: Serum , Qual NEGATIVE Assessment/Plan All Active Problems Alcohol dependence (Acute) Alcohol withdrawal (Acute) Elevated BP without diagnosis of hypertension (Acute) GERD (gastroesophageal reflux disease) (Acute) Hyperglycemia (Acute) Dental infection (Acute) The patient is a 44 y/o F w/ PMHx: GERD, Anxiety and Depression, uncontrolled with admitted panic attacks associated with her EtOH abuse, Hx PE ~ 2 years prior with anticoagulation at that time but no specific provoking factors per discussion with patient with no hypercoagulability evaluation that time but no further issues since, Morbid obesity, Tobacco use who presents to the [facility] ED on 12/15/19 with self directed presentation for alcohol withdrawal treatment. 1. Acute EtOH Abuse with Impending Withdrawal: Will admit to [place], routine labs obtained in the ED upon presentation and notable for anemia, elevated glucose, elevated liver functions. Given interest in sobriety, will initiate and continue on protocol with taper course of Phenobarbital with hold or alteration as needed given patient's complaint of sedation with certain medications, scheduled gabapentin for seizure prophylaxis, as needed Catapres, Bentyl, Vistaril, IV fluids, IV antiemetics, Tylenol as needed for pain. Will consult Case management for assistance for transition to next level of rehabilitation care. Mag, phos pending. Maintain on CIWA protocol concurrently. Patient will need aggressive follow-up for her anxiety and depression as very closely related with her alcohol usage. 2. Anxiety and depression, untreated, uncontrolled: Contributing significantly to patient alcohol abuse, discussed prior regimen which included Effexor regimen as well as Vistaril but both made her very fatigued especially with increased doses. Patient is amenable to retrying regimen at follow-up with counseling following her discharge and amenable to who therapy. 3. Elevated BP without hypertensive diagnosis: Patient with elevated BP above goal upon presentation, will continue closely monitor if necessary will start oral regimen. 4. Hypokalemia: Admission K+ 3.2, magnesium level requested, supplementation given, repeat level in AM. 5. Microcytic anemia, unclear chronicity: Admission hemoglobin 8.4, MCV 68.9, will obtain iron panel, ferritin, vitamin B12 and folic acid levels as well as guaiac but given this current presentation will initiate twice daily iron supplementation. 6. Elevated liver functions: Admission AST/ALT 101/66, likely chronic component, associate with alcohol abuse. Continue treatment as noted above with close continued outpatient follow-up. 7. Hyperglycemia: Admission glucose 130, will obtain hemoglobin A1c. 8. ? Acute Odontogenic infection: Patient given penicillin dose x1 in the ED, will plan continued Augmentin 875 mg twice daily continued treatment for 7 days with request case management for assist for dental follow-up as patient notes difficulty secondary to her insurance. 9. Morbid Obesity: Weight loss and lifestyle changes encouraged. 10. History of prior pulmonary embolism: Noted to be approximately 2 years prior, no specific provoking factor per discussion with patient, noted if any reoccurrence she would need hypercoagulable evaluation. 11. GERD: We will continue Protonix home regimen. 12. Tobacco Abuse: Encouraged cessation, inpatient consultation per RT, NR if desired. 13. DVT prophylaxis: Low risk, encourage ambulation. Inpatient E&M: 25151 Init Hosp L3
[2019-12-15 12:20] LABS: AST(SGOT) 101 U/L (15-37); Alanine Aminotransfer ALT/SGPT 66 U/L (13-56); Albumin, Serum 3.9 g/dL (3.2-5.0); Alkaline Phosphatase 93 U/L (45-117); Anion Gap 12 (5-15); BUN 5 mg/dL (7-18); BUN/Creat Ratio 5.5 RATIO (10-20); Calcium,Total 9.1 mg/dL (8.5-10.1); Chloride 102 mmol/L (98-107); Creatinine, Serum 0.92 mg/dL (0.55-1.02); EST Glomerular Filtration Rate 71 mL/min (>60); Est Glom Filt Rate - Afr Amer 86 mL/min (>60); Estimated Creatinine Clearance 74.57 ml/min; Globulin 4.1 g/dL (2.2-4.2); Glucose 130 mg/dL (74-106); Lipase 189 U/L (73-393); Potassium 3.2 mmol/L (3.5-5.1); Sodium Level 140 mmol/L (136-145)
[2019-12-15 12:25] LABS: Amphetamine Urine VISTA NEGATIVE (<1000 ng/mL); Barbiturate Urine VISTA NEGATIVE (< 200 ng/mL); Benzodiazepine Urine VISTA NEGATIVE (< 200 ng/mL); Cocaine Urine VISTA NEGATIVE (< 300 ng/mL); Ecstacy Urine VISTA NEGATIVE (< 500 ng/mL); Methadone Urine VISTA NEGATIVE (< 300 ng/mL); PCP Urine VISTA NEGATIVE (< 25 ng/mL); THC Urine VISTA NEGATIVE (< 50 ng/mL); Vista UDS pH Range 5
[2019-12-15 12:30] LABS: Absolute Lymphocyte Count 1.25 X10^3/uL (0.83-4.51); Absolute Neutrophil Count 1.3 X10^3/uL (2.0-7.7); Basophil# 0.04 X10^3/uL; Basophil% 1.3 % (0-1); Eosinophil# 0.05 X10^3/uL; Eosinophils% 1.6 % (0-5); Hematocrit 31.5 % (37-47); Hemoglobin 8.4 g/dL (12.0-15.0); Lymphocyte # 1.25 X10^3/ul (4.0); Lymphocyte % 40.3 % (19-41); Mean Corp Hgb Conc 26.7 g/dL (32-36); Mean Corpuscular Hgb 18.4 pg (27.0-32.0); Mean Corpuscular Volume 68.9 fL (81-99); Monocyte# 0.45 X10^3/uL; Monocyte% 14.5 % (0-10); NRBC Flagged by Analyzer 0.6 % (0-5); Neutrophil # 1.28 X10^3/uL (2.7-7.7); Neutrophil % 41.3 % (47-70); POSITIVE MORPHOLOGY YES; Platelet Count 134 K/mm3 (150-450); RBC Distribution Width SD 50.4 fl (35.1-43.9); Red Blood Count 4.57 M/mm3 (4.2-5.4); White Blood Count 3.1 K/mm3 (4.4-11.0)
[2019-12-15 12:31] VITALS: BMI 42.8; BMI 42.9
[2019-12-15 12:47] LABS: Color, Urine Yellow (Yellow); Glucose, Dipstick Normal (Normal); Ketone-Dipstick Negative (Negative); Leukocyte Esterase-Dipstick 25 /ul (Negative); Nitrite-Dipstick Negative (Negative); Occult Blood-Urine Negative /ul (Negative); Protein-Dipstick 30 mg/dl (Negative); Specific Gravity, Urine 1.015 (1.002-1.030); Urine Bilirubin Dipstick Negative (Negative); Urine Clarity Sl. Cloudy (Clear); Urine Urobilinogen 1 mg/dl (Normal)
--- NOTE | 2019-12-15 12:59 | NURSING ---
belongs placed in black totes in pt room
[2019-12-15 13:05] LABS: Anisocytosis 1+; Differential Comment SCANNED; Differential Indicated SCAN CRITERIA MET; Hypochromasia 2+; Microcytosis 2+; Stomatocyte 1+
[2019-12-15 13:12] VITALS: BP 142/72; PULSE 95; RESP 18; TEMP 36.7; O2SAT 97
[2019-12-15 13:13] LABS: Magnesium 1.9 mg/dL (1.6-2.6); Phosphorus 3.2 mg/dL (2.5-4.9)
[2019-12-15 13:14] LABS: Bacteria 1+ /hpf (None Seen); Squamous Epithelial Cells - UA 5-10 SEEN /hpf (5-10); White Blood Cells 0-5 SEEN /hpf (0-5)
[2019-12-15 13:24] LABS: Hemoglobin A1c 5.8 % (3.8-5.6)
[2019-12-15] MEDS: Ibuprofen 600 MG Tablet PO ×2 (13:25→23:38)
[2019-12-15] MEDS: hydrOXYzine PAM 25 MG Capsule 50 MG PO ×2 (13:26→21:17)
[2019-12-15] MEDS: Phenobarbital 32.4 MG Tablet 64.8 MG PO (13:26)
--- NOTE | 2019-12-15 14:55 | CASEMGMT ---
Social Work Note Pt is RAMP pt. SW placed a call to Angelita at [facility] and left message regarding pt. Tammi Taylor PRODUCTION COUNTER, ROAD CLEANER
[2019-12-15 17:07] LABS: Ferritin 19 ng/mL (8-252); Iron 18 ug/dL (50-170); Iron Binding Capacity,Total 590 ug/dL (250-450); PERCENT IRON SATURATION 3.1 % (15.0-55.0)
[2019-12-15] MEDS: Gabapentin 300 MG Capsule PO (17:15)
[2019-12-15] MEDS: Ferrous Gluconate 324 MG Tablet PO (17:15)
[2019-12-15] MEDS: Lactated Ringers 1,000 ML 125 ML IV (17:15)
[2019-12-15] MEDS: 0.9% Saline Lock 10 ML Syringe IV (17:29)
[2019-12-15 21:00] VITALS: BP 154/99; PULSE 92; RESP 16; TEMP 36.7; O2SAT 96
[2019-12-15] MEDS: Amox/Clavulanate 875 MG Tablet PO (21:15)
[2019-12-16] MEDS: Phenobarbital 32.4 MG Tablet PO ×6 (01:10→21:44)
[2019-12-16] MEDS: Gabapentin 300 MG Capsule PO ×3 (01:11→21:49)
[2019-12-16 02:49] VITALS: BP 140/66; PULSE 88; RESP 18; TEMP 36.7; O2SAT 97
[2019-12-16] MEDS: Mag Hydrox/Al Hydrox/Simeth 30 ML UDC PO (04:57)
--- NOTE | 2019-12-16 07:03 | PCM.PN.HOSP ---
Patient Problems: Active and Suspected Problems Alcohol dependence (Acute) Alcohol withdrawal (Acute) Elevated BP without diagnosis of hypertension (Acute) GERD (gastroesophageal reflux disease) (Acute) Hyperglycemia (Acute) Dental infection (Acute) Subjective: Patient doing well currently, less stressed and less anxious but notes that she slept only for segment of time point trazodone administration. Prior to this she was up and very anxious. She does admit that she had some hallucinations both auditory and visual but these have since subsided. She does note she had loose stools but these have also lessened. She previously also had nausea but currently notes she is eager for intake and feeling improved. Patient denies fevers, chills, nausea, emesis, abdominal pain, chest pain or dyspnea. Objective: Physical Examination: General: awake, alert, oriented x 3 and cooperative, seated upright in the medical surgical bed in no apparent distress, markedly more calm than day prior. Skin: normal color, turgor, no icterus, cyanosis. HEENT: AT/NC, EOMI, PERRLA, MMM. Lungs: CTA bilaterally, moderate effort, mild decrease BL bases, no rales, ronchi or wheezing. Heart: Regular rate and rhythm; no gallop, rub audible. Abdomen: soft, morbidly obese, NTTP, ND, mildly hyperactive BS. Extremities: no cyanosis, clubbing, or edema. Neurological: patient awake, alert, oriented x 3; cognitive function intact; pupils equally reactive to light and accomodation; cranial nerves II-XII grossly normal, moving all 4 extremities, no focal deficits, strength improved, mildly globally decreased, no tremors evident currently. Psychiatric: affect appears more calm, no issues with tearing or crying during examination, no acute evidence of depressive or anxiety feelings. Vitals/I&O's: Vital Signs Temp Pulse Resp BP Pulse Ox 98.1 F 88 18 140/66 H 97 12/16/19 02:49 12/16/19 02:49 12/16/19 02:49 12/16/19 02:49 12/16/19 02:49 Oxygen Delivery Method Room Air Weight: 265 lb 10.512 oz Body Mass Index (BMI) 42.8 Intake and Output for Last 24 Hours 12/14/19 12/15/19 12/16/19 23:59 23:59 23:59 Intake Total 300 / 1020 2145 / 2145 Balance 300 / 1020 2144 Laboratory Results 12/15/19 11:50: Urine Color Yellow, Urine Clarity Sl. Cloudy, Urine pH 6.0, Ur Specific [place] 1.015, Urine Protein 30 H, Urine Glucose (UA) Normal, Urine Ketones Negative, Urine Occult Blood Negative, Urine Nitrite Negative, Urine Bilirubin Negative, Urine Urobilinogen 1 H, Ur Leukocyte Esterase 25 H, Urine RBC 0 SEEN, Urine WBC 0-5 SEEN, Ur Squamous Epith Cells 5-10 SEEN, Urine Bacteria 1+, Urine Mucus 0 SEEN 12/15/19 11:50: Urine Opiates Screen NEGATIVE, Urine Methadone Screen NEGATIVE, Ur Barbiturates Screen NEGATIVE, Ur Phencyclidine Scrn NEGATIVE, Ur Amphetamines Screen NEGATIVE, U Methamphetamin-MDMA NEGATIVE, U Benzodiazepines Scrn NEGATIVE, Urine Cocaine Screen NEGATIVE, U Cannabinoids Screen NEGATIVE, Ur Drug Screen Comment 12/15/19 11:58: WBC 3.1 L, RBC 4.57, Hgb 8.4 L, Hct 31.5 L, MCV 68.9 L, MCH 18.4 L, MCHC 26.7 L, RDW Std Deviation 50.4 H, RDW Coeff of Janey 22.0 H, Plt Count 134 L, Immature Gran % (Auto) 1.000 H, Neut % (Auto) 41.3 L, Lymph % (Auto) 40.3, [place] % (Auto) 14.5 H, Eos % (Auto) 1.6, Baso % (Auto) 1.3 H, Absolute Neuts (auto) 1.3 L, Absolute Lymphs (auto) 1.25, Nucleated RBC % 0.6, Differential Comment SCANNED, Hypochromasia 2+, Anisocytosis 1+, Microcytosis 2+, Stomatocytes 1+ 12/15/19 11:58: Sodium 140, Potassium 3.2 L, Chloride 102, Carbon Dioxide 26.0, Anion Gap 12, BUN 5 L, Creatinine 0.92, Estim Creat Clear Calc 74.57, Est GFR (MDRD) Af Amer 86, Est GFR (MDRD) Non-Af 71, BUN/Creatinine Ratio 5.5 L, Glucose 130 H, Calcium 9.1, Total Bilirubin 0.70, AST 101 H, ALT 66 H, Alkaline Phosphatase 93, Total Protein 8.0, Albumin 3.9, Globulin 4.1, Albumin/Globulin Ratio 1.0, Lipase 189 12/15/19 11:58: Ethyl Alcohol 316.0 H* 12/15/19 11:58: Serum , Qual NEGATIVE 12/15/19 11:58: Hemoglobin A1c 5.8 H 12/15/19 11:58: Phosphorus 3.2, Magnesium 1.9 12/15/19 11:58: Iron 18 L, TIBC 590 H, Iron Saturation 3.1 L, Ferritin 19, Folate 2.90 L 12/15/19 17:13: Vitamin B12 Pending Current Medications Acetaminophen (Tylenol) 500 mg PO Q4H PRN PRN PRN Reason: Temp > 100.4 F Al Hydroxide/Mg Hydroxide (Mylanta Ii) 30 ml PO Q6H PRN PRN PRN Reason: dyspesia Last Admin: 12/16/19 04:57 Dose: 30 ml Documented by: Albuterol Sulfate (Ventolin Aerosols) 2.5 mg INHALATION Q2H PRN PRN PRN Reason: Dyspnea, wheezing Amoxicillin/Clavulanate Potassium (Augmentin Tablet) 875 mg PO BID [facility] Stop: 12/22/19 22:01 Last Admin: 12/15/19 21:15 Dose: 875 mg Documented by: Bisacodyl (Dulcolax) 10 mg RECTAL DAILY PRN PRN Reason: Constipation Dicyclomine HCl (Bentyl) 20 mg PO Q6H PRN PRN PRN Reason: abdominal discomfort [facility]ous [facility] Last Admin: 12/15/19 17:15 Dose: 324 mg Documented by: Folic Acid (Folic Acid) 1 mg PO DAILY@0800 [facility] Gabapentin (Neurontin) 300 mg PO Q8H PRN PRN PRN Reason: moderate to severe anxiety Last Admin: 12/16/19 01:11 Dose: 300 mg Documented by: Hydroxyzine Pamoate (Vistaril Pamoate Capsule) 50 mg PO Q4H PRN PRN PRN Reason: mild anxiety Last Admin: 12/15/19 21:17 Dose: 50 mg Documented by: Ibuprofen (Motrin) 600 mg PO Q8H PRN PRN PRN Reason: Pain Score 1-10/10 Last Admin: 12/15/19 23:38 Dose: 600 mg Documented by: Loperamide HCl (Imodium) 2 mg PO Q4H PRN PRN PRN Reason: LOOSE STOOLS Nicotine (Nicoderm Cq (Pbkc)) 21 mg TRANSDERM. DAILY KESHAWN Last Admin: 12/15/19 13:25 Dose: 21 mg Documented by: Ondansetron HCl (Zofran) 8 mg PO Q8H PRN PRN PRN Reason: NAUSEA Pantoprazole Sodium (Protonix) 40 mg PO DAILY KESHAWN Phenobarbital (Phenobarbital) 97.2 mg PO Q4H KESHAWN; Taper Stop: 12/19/19 16:59 Last Admin: 12/16/19 04:57 Dose: 97.2 mg Documented by: Senna (Senokot) 2 tablet PO QHS PRN PRN PRN Reason: Constipation Sodium Chloride () 10 - 40 ml IV UD PRN PRN Reason: SALINE FLUSH Last Admin: 12/15/19 17:29 Dose: 10 ml Documented by: Thiamine HCl (Vitamin B1) 100 mg PO DAILYCM KESHAWN Trazodone HCl (Desyrel) 100 mg PO QHS PRN PRN Reason: INSOMNIA Medical Necessity - Tobacco Use Smoking Status: Heavy Smoker (>10/day) Tobacco Use: Cigarettes - Patient with ongoing 1 to 1.5 pack/day cigarette tobacco usage since youth. Assessment/Plan All Active Problems Alcohol dependence (Acute) Alcohol withdrawal (Acute) Elevated BP without diagnosis of hypertension (Acute) GERD (gastroesophageal reflux disease) (Acute) Hyperglycemia (Acute) Dental infection (Acute) The patient is a 44 y/o F w/ PMHx: GERD, Anxiety and Depression, uncontrolled with admitted panic attacks associated with her EtOH abuse, Hx PE ~ 2 years prior with anticoagulation at that time but no specific provoking factors per discussion with patient with no hypercoagulability evaluation that time but no further issues since, Morbid obesity, Tobacco use who presents to the [facility] ED on 12/15/19 with self directed presentation for alcohol withdrawal treatment. 1. Acute EtOH Abuse with Impending Withdrawal: Patient admitted to medical surgical floor, routine labs obtained with as noted anemia, elevated glucose consistent with prediabetes following evaluation and likely elevated chronic liver function studies. Given interest in sobriety, patient initiated and continue on protocol with taper course of Phenobarbital with hold or alteration as needed given patient's complaint of sedation with certain medications, scheduled gabapentin for seizure prophylaxis, as needed Catapres, Bentyl, Vistaril, IV fluids, IV antiemetics, Tylenol as needed for pain. Case management consulted for assistance for transition to next level of rehabilitation care. Mag, phos levels obtained. Maintain on CIWA protocol concurrently. Patient will need aggressive follow-up for her anxiety and depression as very closely related with her alcohol usage. 2. Anxiety and depression, untreated, uncontrolled: Contributing significantly to patient alcohol abuse, discussed prior regimen which included Effexor regimen as well as Vistaril but both made her very fatigued especially with increased doses. Patient is amenable to retrying regimen at follow-up with counseling following her discharge and amenable to who therapy. 3. Elevated BP without hypertensive diagnosis: Patient with elevated BP above goal upon presentation, will continue closely monitor if necessary will start oral regimen. 4. Hypokalemia: Admission K+ 3.2, magnesium level requested, supplementation given, magnesium 1.9. 5. Microcytic anemia, unclear chronicity: Admission hemoglobin 8.4, MCV 68.9, iron panel with iron 18, TIBC 590, iron saturation 3.1, ferritin 19, vitamin B12 290, folic acid 2.90. Patient's findings consistent with significant iron deficiency anemia as well as significantly depleted folate and lower normal vitamin B12 level. We will continue iron supplementation. 6. Elevated liver functions: Admission AST/ALT 101/66, likely chronic component, associate with alcohol abuse. Continue treatment as noted above with close continued outpatient follow-up. 7. Hyperglycemia with evidence of prediabetes: Admission glucose 130, hemoglobin A1c 5.8%, will request nutrition consultation for education and teaching. 8. ? Acute Odontogenic infection: Patient given penicillin dose x1 in the ED, initiated and continued Augmentin 875 mg twice daily continued treatment for 7 days with request case management for assist for dental follow-up as patient notes difficulty secondary to her insurance. 9. Morbid Obesity: Weight loss and lifestyle changes encouraged. 10. History of prior pulmonary embolism: Noted to be approximately 2 years prior, no specific provoking factor per discussion with patient, noted if any reoccurrence she would need hypercoagulable evaluation. 11. GERD: We will continue Protonix home regimen. 12. Tobacco Abuse: Encouraged cessation, inpatient consultation per RT, NR if desired. 13. DVT prophylaxis: Low risk, encourage ambulation. Inpatient E&M: 13095 Subs Hosp L2
[2019-12-16 08:24] LABS: Vitamin B12 290 pg/mL (211-911)
[2019-12-16 08:44] VITALS: BP 163/91; PULSE 93; RESP 18; TEMP 36.6; O2SAT 97
[2019-12-16] MEDS: Thiamine Hydrochloride 100 MG Tablet PO (08:50)
[2019-12-16] MEDS: Ferrous Gluconate 324 MG Tablet PO ×2 (08:50→16:18)
[2019-12-16] MEDS: Amox/Clavulanate 875 MG Tablet PO ×2 (08:50→21:45)
[2019-12-16] MEDS: Folic Acid 1 MG Tablet PO (08:50)
[2019-12-16] MEDS: Pantoprazole Sodium 40 MG Tablet PO (08:50)
[2019-12-16] MEDS: hydrOXYzine PAM 25 MG Capsule 50 MG PO (08:50)
--- NOTE | 2019-12-16 10:19 | ADDICTION ---
This chief underwriter met with patient in her room to administer ASAM, AUDIT and MSE assessments and to process discharge planning. Patient to discharge on 12/20/2019 and is scheduled for assessment with Corie on 12/21/2019 at 12pm. She refused recommendation to IOP/RES based on anxiety concerns and COVID19. She reports that she does not need transportation upon discharge. Assessment places in floor chart and will be faxed to [facility]. Her ASAM assessment indicated appropriateness for the 4.0 Medically Managed Intensive Inpatient [facility] LOC
--- NOTE | 2019-12-16 11:18 | CASEMGMT ---
Social Work SW met with pt and introduced self and role of SW. SW provided list of dentists in community that are in network with pt insurance. SW also provided written information on [facility]. Pt is appreciative of resources. Denies any other needs at this time. ELAINA Li
[2019-12-16 12:13] VITALS: BP 162/74; PULSE 97; RESP 18; TEMP 36.4; O2SAT 99
[2019-12-16 16:16] VITALS: BP 143/70; PULSE 97; RESP 18; TEMP 36.8; O2SAT 98
[2019-12-16] MEDS: Lisinopril 10 MG Tablet PO (16:18)
[2019-12-16] MEDS: traZODone 100 MG Tablet PO (21:49)
[2019-12-16] MEDS: Ibuprofen 600 MG Tablet PO (21:49)
[2019-12-16 22:00] VITALS: O2SAT 97
[2019-12-16 22:15] VITALS: BP 118/63; PULSE 95; RESP 16; TEMP 36.6; O2SAT 97
[2019-12-17] VITALS (8 sets, daily range): BP systolic 111–136; BP diastolic 47–71; PULSE 88–100; RESP 16–18; TEMP 36.5–37.1; O2SAT 86–100
[2019-12-17] MEDS: Phenobarbital 32.4 MG Tablet PO ×6 (01:26→22:55)
[2019-12-17] MEDS: Loperamide 2 MG Capsule PO ×3 (01:36→17:19)
[2019-12-17] MEDS: Ferrous Gluconate 324 MG Tablet PO ×2 (09:35→17:10)
[2019-12-17] MEDS: Pantoprazole Sodium 40 MG Tablet PO (09:35)
[2019-12-17] MEDS: Thiamine Hydrochloride 100 MG Tablet PO (09:36)
[2019-12-17] MEDS: Lisinopril 10 MG Tablet PO (09:36)
[2019-12-17] MEDS: Folic Acid 1 MG Tablet PO (09:36)
[2019-12-17] MEDS: Amox/Clavulanate 875 MG Tablet PO ×2 (09:36→22:55)
[2019-12-17] MEDS: Mag Hydrox/Al Hydrox/Simeth 30 ML UDC PO (09:42)
--- NOTE | 2019-12-17 11:45 | PCM.PN.HOSP ---
Patient Problems: Active and Suspected Problems Alcohol dependence (Acute) Alcohol withdrawal (Acute) Elevated BP without diagnosis of hypertension (Acute) GERD (gastroesophageal reflux disease) (Acute) Hyperglycemia (Acute) Dental infection (Acute) Subjective: Patient overnight with ongoing occasional anxiety but continues to improve clinically. When patient did decrease her oxygen saturation when attempting to sleep nurse discussed possible underlying sleep apnea and patient was anxious regarding this. Discussed at length that patient has likely several underlying things that need to be dealt with including prediabetes, anemia, elevated blood pressures, morbid obesity and possibly sleep apnea but these are things that may be corrected and she is amenable to following up with primary care physician. Patient denies any market withdrawal symptoms and notes improved from the status. Patient denies fevers, chills, nausea, emesis, abdominal pain, chest pain or dyspnea. Objective: Physical Examination: General: awake, alert, oriented x 3 and cooperative, seated upright in medical surgical bed, no acute distress currently, calm. Skin: normal color, turgor, no icterus, cyanosis. HEENT: AT/NC, EOMI, PERRLA, MMM. Lungs: CTA bilaterally, moderate effort, mild decrease BL bases, no rales, ronchi or wheezing. Heart: Regular rate and rhythm; no gallop, rub audible. Abdomen: soft, morbidly obese, NTTP, ND, mildly hyperactive BS. Extremities: no cyanosis, clubbing, or edema. Neurological: patient awake, alert, oriented x 3; cognitive function intact; pupils equally reactive to light and accomodation; cranial nerves II-XII grossly normal, moving all 4 extremities, no focal deficits, strength improved, mildly globally decreased, no tremors, withdrawal symptoms resolved. Psychiatric: affect appears calm, did have anxiety earlier, no acute evidence of depressive or anxiety feelings. Vitals/I&O's: Vital Signs Temp Pulse Resp BP Pulse Ox 98.1 F 88 16 111/51 L 100 12/17/19 09:35 12/17/19 09:35 12/17/19 09:35 12/17/19 09:35 12/17/19 09:35 Oxygen Flow Rate (L/min) 2 Oxygen Delivery Method Room Air Weight: 265 lb 10.512 oz Body Mass Index (BMI) 42.8 Intake and Output for Last 24 Hours 12/15/19 12/16/19 12/17/19 23:59 23:59 23:59 Intake Total 300 / 1020 3725 / 3725 300 / 300 Balance 300 / 1020 3725 / 3725 300 / 300 Microbiology Past 72 Hours 12/16/19 17:00 Stool Stool Occult Blood (TED) - Final Current Medications Acetaminophen (Tylenol) 500 mg PO Q4H PRN PRN PRN Reason: Temp > 100.4 F Al Hydroxide/Mg Hydroxide (Mylanta Ii) 30 ml PO Q6H PRN PRN PRN Reason: dyspesia Last Admin: 12/17/19 09:42 Dose: 30 ml Documented by: Albuterol Sulfate (Ventolin Aerosols) 2.5 mg INHALATION Q2H PRN PRN PRN Reason: Dyspnea, wheezing Amoxicillin/Clavulanate Potassium (Augmentin Tablet) 875 mg PO BID [facility] Stop: 12/22/19 22:01 Last Admin: 12/17/19 09:36 Dose: 875 mg Documented by: Bisacodyl (Dulcolax) 10 mg RECTAL DAILY PRN PRN Reason: Constipation Dicyclomine HCl (Bentyl) 20 mg PO Q6H PRN PRN PRN Reason: abdominal discomfort Ferrous Gluconate ([facility]ous [facility]con[facility]) [facility] Last Admin: 12/17/19 09:35 Dose: 324 mg Documented by: Folic Acid (Folic Acid) 1 mg PO DAILY@0800 [facility] Last Admin: 12/17/19 09:36 Dose: 1 mg Documented by: Gabapentin (Neurontin) 300 mg PO Q8H PRN PRN PRN Reason: moderate to severe anxiety Last Admin: 12/16/19 21:49 Dose: 300 mg Documented by: Hydroxyzine Pamoate (Vistaril Pamoate Capsule) 50 mg PO Q4H PRN PRN PRN Reason: mild anxiety Last Admin: 12/16/19 08:50 Dose: 50 mg Documented by: Ibuprofen (Motrin) 600 mg PO Q8H PRN PRN PRN Reason: Pain Score 1-10/10 Last Admin: 12/16/19 21:49 Dose: 600 mg Documented by: Lisinopril (Zestril) 10 mg PO DAILY [facility] Last Admin: 12/17/19 09:36 Dose: 10 mg Documented by: Loperamide HCl (Imodium) 2 mg PO Q4H PRN PRN PRN Reason: LOOSE STOOLS Last Admin: 12/17/19 01:36 Dose: 2 mg Documented by: Nicotine (Nicoderm Cq (Pbkc)) 21 mg TRANSDERM. DAILY [facility] Last Admin: 12/17/19 09:35 Dose: 21 mg Documented by: Ondansetron HCl (Zofran) 8 mg PO Q8H PRN PRN PRN Reason: NAUSEA Pantoprazole Sodium (Protonix) 40 mg PO DAILY [facility] Last Admin: 12/17/19 09:35 Dose: 40 mg Documented by: Phenobarbital (Phenobarbital) 64.8 mg PO Q4H [facility]; Taper Stop: 12/19/19 16:59 Last Admin: 12/17/19 09:35 Dose: 64.8 mg Documented by: Senna (Senokot) 2 tablet PO QHS PRN PRN PRN Reason: Constipation Sodium Chloride () 10 - 40 ml IV UD PRN PRN Reason: SALINE FLUSH Last Admin: 12/15/19 17:29 Dose: 10 ml Documented by: Thiamine HCl (Vitamin B1) [facility] Last Admin: 12/17/19 09:36 Dose: 100 mg Documented by: Trazodone HCl (Desyrel) 100 mg PO QHS PRN PRN Reason: INSOMNIA Last Admin: 12/16/19 21:49 Dose: 100 mg Documented by: STROKE Vital Signs/Narrative: Vital Signs Temp Pulse Resp BP Pulse Ox 12/17/19 09:35 98.1 F 88 16 111/51 L 100 12/17/19 07:55 99 12/17/19 07:49 86 Medical Necessity - Tobacco Use Smoking Status: Heavy Smoker (>10/day) Tobacco Use: Cigarettes - Patient with ongoing 1 to 1.5 pack/day cigarette tobacco usage since youth. Assessment/Plan All Active Problems Alcohol dependence (Acute) Alcohol withdrawal (Acute) Elevated BP without diagnosis of hypertension (Acute) GERD (gastroesophageal reflux disease) (Acute) Hyperglycemia (Acute) Dental infection (Acute) The patient is a 44 y/o F w/ PMHx: GERD, Anxiety and Depression, uncontrolled with admitted panic attacks associated with her EtOH abuse, Hx PE ~ 2 years prior with anticoagulation at that time but no specific provoking factors per discussion with patient with no hypercoagulability evaluation that time but no further issues since, Morbid obesity, Tobacco use who presents to the [facility] ED on 12/15/19 with self directed presentation for alcohol withdrawal treatment. 1. Acute EtOH Abuse with Impending Withdrawal: Patient admitted to medical surgical floor, routine labs obtained with as noted anemia, elevated glucose consistent with prediabetes following evaluation and likely elevated chronic liver function studies. Given interest in sobriety, patient initiated and continue on protocol with taper course of Phenobarbital with hold or alteration as needed given patient's complaint of sedation with certain medications, scheduled gabapentin for seizure prophylaxis, as needed Catapres, Bentyl, Vistaril, IV fluids, IV antiemetics, Tylenol as needed for pain. Case management consulted for assistance for transition to next level of rehabilitation care. Mag, phos levels obtained. Maintain on CIWA protocol concurrently. Patient will need aggressive follow-up for her anxiety and depression as very closely related with her alcohol usage. Possible discharge per discussion with staff following completion of taper noted on 12/19/2019. 2. Anxiety and depression, untreated, uncontrolled: Contributing significantly to patient alcohol abuse, discussed prior regimen which included Effexor regimen as well as Vistaril but both made her very fatigued especially with increased doses. Patient is amenable to retrying regimen at follow-up with counseling following her discharge and amenable to who therapy. Patient does have plan to follow-up with primary care physician and agents may be added at that time. 3. Elevated BP without hypertensive diagnosis, Suspected underlying HTN: Patient with elevated BP above goal upon presentation, ongoing, added low dose lisinopril 10 mg daily but note BP decrease marked, will decrease to lisinopril 5 mg daily. Patient will have close PCP follow-up upon discharge with continued outpatient assessment and alterations as needed. 4. Hypokalemia: Admission K+ 3.2, magnesium level requested, supplementation given, magnesium 1.9. 5. Microcytic anemia, unclear chronicity: Admission hemoglobin 8.4, MCV 68.9, iron panel with iron 18, TIBC 590, iron saturation 3.1, ferritin 19, vitamin B12 290, folic acid 2.90. Patient's findings consistent with significant iron deficiency anemia as well as significantly depleted folate and lower normal vitamin B12 level. We will continue iron supplementation. 6. Elevated liver functions: Admission AST/ALT 101/66, likely chronic component, associate with alcohol abuse. Continue treatment as noted above with close continued outpatient follow-up. 7. Hyperglycemia with evidence of prediabetes: Admission glucose 130, hemoglobin A1c 5.8%, requested nutrition consultation for education and teaching for prediabetes. Discussed diet and lifestyle changes with patient's and noted that this may be corrected with correct interventions. Will encourage PCP follow-up upon discharge. 8. ? Acute Odontogenic infection: Patient given penicillin dose x1 in the ED, initiated and continued Augmentin 875 mg twice daily continued treatment for 7 days with request case management for assist for dental follow-up as patient notes difficulty secondary to her insurance. 9. Morbid Obesity: Weight loss and lifestyle changes encouraged. 10. History of prior pulmonary embolism: Noted to be approximately 2 years prior, no specific provoking factor per discussion with patient, noted if any reoccurrence she would need hypercoagulable evaluation. 11. GERD: We will continue Protonix home regimen. 12. Tobacco Abuse: Encouraged cessation, inpatient consultation per RT, NR if desired. 13. DVT prophylaxis: Low risk, encourage ambulation. Inpatient E&M: 91598 Subs Hosp L2
[2019-12-17] MEDS: Gabapentin 300 MG Capsule PO ×2 (11:48→20:11)
[2019-12-17] MEDS: hydrOXYzine PAM 25 MG Capsule 50 MG PO ×2 (13:23→17:23)
[2019-12-17] MEDS: Dicyclomine 10 MG Capsule 20 MG PO ×2 (13:23→20:11)
[2019-12-17] MEDS: traZODone 100 MG Tablet PO (20:11)
[2019-12-18] VITALS (7 sets, daily range): BP systolic 120–134; BP diastolic 63–78; PULSE 81–92; RESP 14–18; TEMP 36.4–36.6; O2SAT 98–100
[2019-12-18] MEDS: Phenobarbital 32.4 MG Tablet PO ×4 (05:02→22:48)
--- NOTE | 2019-12-18 07:44 | PCM.PN.HOSP ---
Patient Problems: Active and Suspected Problems Alcohol dependence (Acute) Alcohol withdrawal (Acute) Elevated BP without diagnosis of hypertension (Acute) GERD (gastroesophageal reflux disease) (Acute) Hyperglycemia (Acute) Dental infection (Acute) Subjective: The patient is a 44 y/o F w/ PMHx: GERD, Anxiety and Depression, uncontrolled with admitted panic attacks associated with her EtOH abuse, Hx PE ~ 2 years prior with anticoagulation at that time but no specific provoking factors per discussion with patient with no hypercoagulability evaluation that time but no further issues since, Morbid obesity, Tobacco use who presents to the [facility] ED on 12/15/19 with self directed presentation for alcohol withdrawal treatment. Patient admitted to medical surgical floor, routine labs obtained with as noted anemia, elevated glucose consistent with prediabetes following evaluation and likely elevated chronic liver function studies. Given interest in sobriety, patient initiated and continue on protocol with taper course of Phenobarbital with hold or alteration as needed given patient's complaint of sedation with certain medications, scheduled gabapentin for seizure prophylaxis, as needed Catapres, Bentyl, Vistaril, IV fluids, IV antiemetics, Tylenol as needed for pain. Case management consulted for assistance for transition to next level of rehabilitation care. Mag, phos levels obtained. Maintain on CIWA protocol concurrently. Patient will need aggressive follow-up for her anxiety and depression as very closely related with her alcohol usage. Patient discharge instructions and follow-up arranged to assure smooth transition given patient current incentive to establish with PCP and focus on her health and anxiety to avoid relapse. Would plan discharge per discussion with staff following completion of taper noted on 12/19/2019. Additionally, treated for hypertension, anemia, prediabetes and possible tooth infection. Instructions/discharge pre-done, medications sent. Patient with no acute events overnight per self and per nursing staff. Patient alert this morning, has been up and moving. She notes this is the first day she is felt really well. Patient remains amenable to ongoing treatment of acute alcohol withdrawal and continued aggressive outpatient follow-up. She has requested alcohol Anonymous books and has been reading them. She notes intention to follow-up outpatient with new PCP. She notes resolution of prior tremors, malaise, fatigue, nausea, diarrhea. Patient denies fevers, chills, nausea, emesis, abdominal pain, chest pain or dyspnea. Objective: Physical Examination: General: awake, alert, oriented x 3 and cooperative, seated upright in medical surgical bed, acute distress, more alert and interactive than prior. Skin: normal color, turgor, no icterus, cyanosis. HEENT: AT/NC, EOMI, PERRLA, MMM. Lungs: CTA bilaterally, moderate effort, mild decrease BL bases, no rales, ronchi or wheezing. Heart: Regular rate and rhythm; no gallop, rub audible. Abdomen: soft, morbidly obese, NTTP, ND, normalized BS. Extremities: no cyanosis, clubbing, or edema. Neurological: patient awake, alert, oriented x 3; cognitive function intact; pupils equally reactive to light and accomodation; cranial nerves II-XII grossly normal, moving all 4 extremities, no focal deficits, strength improved, preserved. Psychiatric: affect appears calm, very upbeat this a.m., no acute evidence of depressive or anxiety feelings. Vitals/I&O's: Vital Signs Temp Pulse Resp BP Pulse Ox 97.5 F L 92 18 120/65 98 12/18/19 05:04 12/18/19 05:04 12/18/19 05:04 12/18/19 05:04 12/18/19 07:12 Oxygen Flow Rate (L/min) 2 Oxygen Delivery Method Room Air Weight: 265 lb 10.512 oz Body Mass Index (BMI) 42.8 Intake and Output for Last 24 Hours 12/16/19 12/17/19 12/18/19 23:59 23:59 23:59 Intake Total 3725 / 3725 1410 / 1410 340 / 340 Balance 3725 / 3725 1410 / 1410 340 / 340 Microbiology Past 72 Hours 12/16/19 17:00 Stool Stool Occult Blood (TED) - Final Current Medications Acetaminophen (Tylenol) 500 mg PO Q4H PRN PRN PRN Reason: Temp > 100.4 F Al Hydroxide/Mg Hydroxide (Mylanta Ii) 30 ml PO Q6H PRN PRN PRN Reason: dyspesia Last Admin: 12/17/19 09:42 Dose: 30 ml Documented by: Albuterol Sulfate (Ventolin Aerosols) 2.5 mg INHALATION Q2H PRN PRN PRN Reason: Dyspnea, wheezing Amoxicillin/Clavulanate Potassium (Augmentin Tablet) 875 mg PO BID [facility] Stop: 12/22/19 22:01 Last Admin: 12/17/19 22:55 Dose: 875 mg Documented by: Bisacodyl (Dulcolax) 10 mg RECTAL DAILY PRN PRN Reason: Constipation Dicyclomine HCl (Bentyl) 20 mg PO Q6H PRN PRN PRN Reason: abdominal discomfort Last Admin: 12/17/19 20:11 Dose: 20 mg Documented by: Ferrous Gluconate (Ferrous Gluconate) 324 mg PO BIDCM [facility] Last Admin: 12/17/19 17:10 Dose: 324 mg Documented by: Folic Acid (Folic Acid) 1 mg PO DAILY@0800 [facility] Last Admin: 12/17/19 09:36 Dose: 1 mg Documented by: Gabapentin (Neurontin) 300 mg PO Q8H PRN PRN PRN Reason: moderate to severe anxiety Last Admin: 12/17/19 20:11 Dose: 300 mg Documented by: Hydroxyzine Pamoate (Vistaril Pamoate Capsule) 50 mg PO Q4H PRN PRN PRN Reason: mild anxiety Last Admin: 12/17/19 17:23 Dose: 50 mg Documented by: Ibuprofen (Motrin) 600 mg PO Q8H PRN PRN PRN Reason: Pain Score 1-10/10 Last Admin: 12/16/19 21:49 Dose: 600 mg Documented by: Lisinopril (Zestril) 5 mg PO DAILY [facility] Loperamide HCl (Imodium) 2 mg PO Q4H PRN PRN PRN Reason: LOOSE STOOLS Last Admin: 12/17/19 17:19 Dose: 2 mg Documented by: Nicotine (Nicoderm Cq (Pbkc)) 21 mg TRANSDERM. DAILY [facility] Last Admin: 12/17/19 09:35 Dose: 21 mg Documented by: Ondansetron HCl (Zofran) 8 mg PO Q8H PRN PRN PRN Reason: NAUSEA Pantoprazole Sodium (Protonix) 40 mg PO DAILY [facility] Last Admin: 12/17/19 09:35 Dose: 40 mg Documented by: Phenobarbital (Phenobarbital) 64.8 mg PO Q6H [facility]; Taper Stop: 12/19/19 16:59 Last Admin: 12/18/19 05:02 Dose: 64.8 mg Documented by: Senna (Senokot) 2 tablet PO QHS PRN PRN PRN Reason: Constipation Sodium Chloride () 10 - 40 ml IV UD PRN PRN Reason: SALINE FLUSH Last Admin: 12/15/19 17:29 Dose: 10 ml Documented by: Thiamine HCl (Vitamin B1) 100 mg PO DAILYCM [facility] Last Admin: 12/17/19 09:36 Dose: 100 mg Documented by: Trazodone HCl (Desyrel) 100 mg PO QHS PRN PRN Reason: INSOMNIA Last Admin: 12/17/19 20:11 Dose: 100 mg Documented by: STROKE Vital Signs/Narrative: Vital Signs Temp Pulse Resp BP Pulse Ox 12/18/19 07:12 98 12/18/19 05:04 97.5 F L 92 18 120/65 98 Medical Necessity - Tobacco Use Smoking Status: Heavy Smoker (>10/day) Tobacco Use: Cigarettes - Patient with ongoing 1 to 1.5 pack/day cigarette tobacco usage since youth. Assessment/Plan All Active Problems Alcohol dependence (Acute) Alcohol withdrawal (Acute) Elevated BP without diagnosis of hypertension (Acute) GERD (gastroesophageal reflux disease) (Acute) Hyperglycemia (Acute) Dental infection (Acute) The patient is a 44 y/o F w/ PMHx: GERD, Anxiety and Depression, uncontrolled with admitted panic attacks associated with her EtOH abuse, Hx PE ~ 2 years prior with anticoagulation at that time but no specific provoking factors per discussion with patient with no hypercoagulability evaluation that time but no further issues since, Morbid obesity, Tobacco use who presents to the [facility] ED on 12/15/19 with self directed presentation for alcohol withdrawal treatment. 1. Acute EtOH Abuse with Impending Withdrawal: Patient admitted to medical surgical floor, routine labs obtained with as noted anemia, elevated glucose consistent with prediabetes following evaluation and likely elevated chronic liver function studies. Given interest in sobriety, patient initiated and continue on protocol with taper course of Phenobarbital with hold or alteration as needed given patient's complaint of sedation with certain medications, scheduled gabapentin for seizure prophylaxis, as needed Catapres, Bentyl, Vistaril, IV fluids, IV antiemetics, Tylenol as needed for pain. Case management consulted for assistance for transition to next level of rehabilitation care. Mag, phos levels obtained. Maintain on CIWA protocol concurrently. Patient will need aggressive follow-up for her anxiety and depression as very closely related with her alcohol usage. Patient discharge instructions and follow-up arranged to assure smooth transition given patient current incentive to establish with PCP and focus on her health and anxiety to avoid relapse. Would plan discharge per discussion with staff following completion of taper noted on 12/19/2019. 2. Anxiety and depression, untreated, uncontrolled: Contributing significantly to patient alcohol abuse, discussed prior regimen which included Effexor regimen as well as Vistaril but both made her very fatigued especially with increased doses. Patient is amenable to retrying regimen at follow-up with counseling following her discharge and amenable to who therapy. Patient does have plan to follow-up with primary care physician and agents may be added at that time. 3. Elevated BP without hypertensive diagnosis, Suspected underlying HTN: Patient with elevated BP above goal upon presentation, ongoing, added low dose lisinopril 10 mg daily but note BP decrease marked, decreases to lisinopril 5 mg daily, well controlled currently with planned continuation at discharge. Suspect with lifestyle changes including diet/weight loss this may be stopped in the future. 4. Hypokalemia: Admission K+ 3.2, magnesium level requested, supplementation given, magnesium 1.9. 5. Microcytic anemia, unclear chronicity: Admission hemoglobin 8.4, MCV 68.9, iron panel with iron 18, TIBC 590, iron saturation 3.1, ferritin 19, vitamin B12 290, folic acid 2.90. Patient's findings consistent with significant iron deficiency anemia as well as significantly depleted folate and lower normal vitamin B12 level. We will continue supplementations. 6. Elevated liver functions: Admission AST/ALT 101/66, likely chronic component, associate with alcohol abuse. Continue treatment as noted above with close continued outpatient follow-up. 7. Hyperglycemia with evidence of prediabetes: Admission glucose 130, hemoglobin A1c 5.8%, requested nutrition consultation for education and teaching for prediabetes. Discussed diet and lifestyle changes with patient's and noted that this may be corrected with correct interventions. Will encourage PCP follow-up upon discharge. 8. ? Acute Odontogenic infection: Patient given penicillin dose x1 in the ED, initiated and continued Augmentin 875 mg twice daily continued treatment for 7 days (completion after 12/21/19 dosing) with request case management for assist for dental follow-up as patient notes difficulty secondary to her insurance. 9. Morbid Obesity: Weight loss and lifestyle changes encouraged. 10. History of prior pulmonary embolism: Noted to be approximately 2 years prior, no specific provoking factor per discussion with patient, noted if any reoccurrence she would need hypercoagulable evaluation. 11. GERD: We will continue Protonix home regimen. 12. Tobacco Abuse: Encouraged cessation, inpatient consultation per RT, NR if desired. 13. DVT prophylaxis: Low risk, encourage ambulation. Inpatient E&M: 15195 Subs Hosp L2
[2019-12-18] MEDS: Amox/Clavulanate 875 MG Tablet PO ×2 (08:48→22:48)
[2019-12-18] MEDS: Ferrous Gluconate 324 MG Tablet PO ×2 (08:48→15:59)
[2019-12-18] MEDS: Thiamine Hydrochloride 100 MG Tablet PO (08:48)
[2019-12-18] MEDS: Pantoprazole Sodium 40 MG Tablet PO (08:48)
[2019-12-18] MEDS: Folic Acid 1 MG Tablet PO (08:48)
[2019-12-18] MEDS: Lisinopril 5 MG Tablet PO (08:57)
[2019-12-18] MEDS: Gabapentin 300 MG Capsule PO ×2 (08:57→18:12)
[2019-12-18] MEDS: Dicyclomine 10 MG Capsule 20 MG PO (08:57)
--- NOTE | 2019-12-18 11:37 | PCM.DC ---
- Discharge Diagnoses Current Active Problems: Current Active and Chronic Problems 1. Acute EtOH Abuse with Withdrawal 2. Anxiety and depression, untreated, uncontrolled 3. Elevated BP without hypertensive diagnosis, Suspected underlying HTN 4. Hypokalemia 5. Microcytic anemia, unclear chronicity 6. Elevated liver functions, suspect chronic secondary to #1 7. Hyperglycemia with evidence of prediabetes 8. Acute Odontogenic infection 9. Morbid Obesity 10. History of prior pulmonary embolism 11. GERD 12. Tobacco Abuse You will use the following diet at home:: Calorie/Carbohydrate Controlled (specify 1200, 1400, etc) - Given evidence prediabetes recommend continued ADA 1800/cardiac diet. Your food should be the consistency of: Regular Your liquids should be the consistency of: Regular/Thin Discharge Activity: - - Advise routine activity continuation. May resume sexual activity in: No Restrictions Weight Bearing Status: Weight bearing as tolerated Call your doctor if you observe: Fever of 101 or Higher, Inability to urinate, Inability to have a bowel movement, Shortness of breath, Dizziness, Fainting spells, Chest pain, Uncontrolled pain Instructions: ED Alcohol Abuse, Addiction: Your Treatment Options, Life After Combat: Coping with Alcohol Abuse, Your Body's Response to Anxiety, Treating Anxiety Disorders with Therapy, ED Panic Attack, Taking DOMINGO Inhibitors, Controlling High Blood Pressure, Low-Salt Choices, Your High Blood Pressure Risk Factors, ED Anemia Iron Deficiency, Prediabetes, ED Tooth Pain Additional Instructions: At follow-up with your new primary care physicain please review current admission and continue to work on: (1) your anxiety and depression with consideration medications and ongoing therapies. (2) elevated blood pressure (hypertension) with newly initated low dose medication. (3) iron deficiency anemia with newly started iron supplementation. (4) evidence prediabetes with new recommended diet/lifestyle changes. (5) acute odontogenic infection currently being treated with twice daily augmentin with planned assist per case management/social work to find local dentist. (6) tobacco cessation with script for nicotine patches given and need to transition down to 14 mg per primary care physician Allergies/Adverse Reactions: Allergies cinnamon Allergy (Verified 12/15/19 11:14) Rash Medications to take at Discharge Omeprazole 40 mg PO DAILY 04/30/17 Amox/Clavulanate Tablet [Augmentin Tablet] 875 mg PO BID #6 tab 12/18/19 Ferrous Gluconate 324 mg PO BIDCM #60 tab 12/18/19 Folic Acid 1 mg PO DAILY@0800 #30 tab 12/18/19 Lisinopril [Zestril] 5 mg PO DAILY #60 tab 12/18/19 Nicotine [Nicoderm Cq] 21 mg TRANSDERM. DAILY #14 patch 12/18/19 Thiamine Hydrochloride [Vitamin B1] 100 mg PO DAILYCM #30 tab 12/18/19 traZODone [Desyrel] 100 mg PO QHS PRN #30 tab 12/18/19 The following prescriptions were given: Amox/Clavulanate Tablet [Augmentin Tablet] 875 mg PO BID #6 tab Transmission Status: Pending to [facility] traZODone [Desyrel] 100 mg PO QHS PRN #30 tab PRN Reason: Insomnia Transmission Status: Pending to [facility] [facility] Ferrous Gluconate 324 mg PO BIDCM #60 tab Transmission Status: Pending to [facility] [address] [facility] Folic Acid 1 mg PO DAILY@0800 #30 tab Transmission Status: Pending to [facility] Nicotine [Nicoderm Cq] 21 mg TRANSDERM. DAILY #14 patch Transmission Status: Pending to [facility] [address] [facility] Thiamine Hydrochloride [Vitamin B1] 100 mg PO DAILYCM #30 tab Transmission Status: Pending to [facility] Lisinopril [Zestril] 5 mg PO DAILY #60 tab Transmission Status: Pending to [facility] [facility] Primary Care Physician: Princess Baac MD [STAFF PHYSICIAN] - Please follow up with your Primary Care Physician in: Please follow-up with Dr. Baca to establish. Test Results: Test results from this visit will be discussed in further detail at your follow-up appointment, if applicable. Please Follow Up With: Dental Clinic When: Please work with Case management/Social work to find local dentist. Please Follow Up With: [facility] When: Continue to work with [facility] upon discharge to assure ongoing sobriety. Proposed Discharge Date: 12/20/19
[2019-12-18] MEDS: traZODone 100 MG Tablet PO (22:52)
[2019-12-19 05:13] VITALS: BP 113/56; PULSE 78; RESP 18; TEMP 36.7; O2SAT 96
[2019-12-19] MEDS: Phenobarbital 32.4 MG Tablet PO ×2 (05:16→11:35)
[2019-12-19] MEDS: Thiamine Hydrochloride 100 MG Tablet PO (09:23)
[2019-12-19] MEDS: Pantoprazole Sodium 40 MG Tablet PO (09:23)
[2019-12-19] MEDS: Amox/Clavulanate 875 MG Tablet PO (09:23)
[2019-12-19] MEDS: Folic Acid 1 MG Tablet PO (09:23)
[2019-12-19] MEDS: Ferrous Gluconate 324 MG Tablet PO (09:24)
[2019-12-19 09:28] VITALS: BP 129/73; PULSE 87; RESP 18; TEMP 36.8; O2SAT 98
[2019-12-19] MEDS: Lisinopril 5 MG Tablet PO (09:34)
[2019-12-19] MEDS: Gabapentin 300 MG Capsule PO (09:34)
[2019-12-19 10:55] VITALS: O2SAT 94
--- NOTE | 2019-12-19 12:07 | PCM.DC.SUM ---
Discharge Date and Diagnosis - Problem List Patient Problems: Active and Suspected Problems Alcohol dependence (Acute) Alcohol withdrawal (Acute) Elevated BP without diagnosis of hypertension (Acute) GERD (gastroesophageal reflux disease) (Acute) Hyperglycemia (Acute) Dental infection (Acute) Date of Admission: 12/15/19 Date of Discharge: 12/19/19 - Primary Discharge Diagnosis Acute Problems: Active Problems Alcohol dependence (Acute) Alcohol withdrawal (Acute) Elevated BP without diagnosis of hypertension (Acute) GERD (gastroesophageal reflux disease) (Acute) Hyperglycemia (Acute) Dental infection (Acute) - Secondary Discharge Diagnosis Chronic Problems: Chronic Problems Morbid obesity (Chronic) Tobacco use (Chronic) Anxiety and depression (Chronic) History of pulmonary embolism (Chronic) Panic attacks (Chronic) Microcytic anemia (Chronic) Elevated liver enzymes (Chronic) Hospital Course and Treatment Operations: None Procedures: None Summary of Care Provided: Ms Melvin is a 44 y/o F w/ PMHx: GERD, Anxiety and Depression, uncontrolled with admitted panic attacks associated with her EtOH abuse, Hx PE ~ 2 years prior with anticoagulation at that time, Morbid obesity, and Tobacco use who presented to the [facility] ED on 12/15/19 with self directed presentation for alcohol withdrawal treatment. Patient was admitted to medical surgical floor, routine labs obtained with as noted anemia, elevated glucose consistent with insulin resistance and likely elevated chronic liver function studies. She was initiated and continued on the EtOH protocol with tapering course of Phenobarbital, prn alteration as needed given patient's complaint of sedation with certain medications, scheduled gabapentin for seizure prophylaxis, as needed Catapres, Bentyl, Vistaril, IV fluids, IV antiemetics, and Tylenol as needed for pain. She was found to have a dental infection as well and was treated with Augmentin to be completed on 12/20. She was also given information regarding local dentists for f/u. She does have and appt in [place] on 01/18 but would like to be seen earlier if possible. She will need aggressive follow-up for her anxiety and depression as very closely related with her alcohol usage. Patient discharge instructions and follow-up arranged to assure smooth transition given patient current incentive to establish with PCP and focus on her health and anxiety to avoid relapse. All new scripts were faxed to her pharmacy. She was discharged in stable condition. Patient Problems: Active and Suspected Problems Alcohol dependence (Acute) Alcohol withdrawal (Acute) Elevated BP without diagnosis of hypertension (Acute) GERD (gastroesophageal reflux disease) (Acute) Hyperglycemia (Acute) Dental infection (Acute) Subjective: Pt is anxious to go home. Has information for f/u with a new PCP and [facility]. States that she is feeling well. - Physical Exam Vitals/I&O's: Vital Signs Temp Pulse Resp BP Pulse Ox 98.2 F 87 18 129/73 H 98 12/19/19 09:28 12/19/19 09:28 12/19/19 09:28 12/19/19 09:28 12/19/19 09:28 Oxygen Flow Rate (L/min) 2 Oxygen Delivery Method Room Air Weight: 120.5 kg Body Mass Index (BMI) 42.8 Intake and Output for Last 24 Hours 12/17/19 12/18/19 12/19/19 23:59 23:59 23:59 Intake Total 1410 / 1410 740 / 740 1150 / 1150 Balance 1410 / 1410 740 / 740 1150 / 1150 General: Alert, Oriented x3, Cooperative, No apparent distress, Well developed, Well nourished, - - MO WF sitting up in bed, nsg at bedside, pt appears a bit anxious but non-toxic and is very pleasant Lungs: Clear to auscultation, Normal air movement, No rhonchi, No wheeze, No rales Cardiovascular: Regular rate, Regular Rhythm, Normal S1, Normal S2, No murmurs Abdomen: Bowel Sounds Present, Soft, Non Tender, Non-Distended, No Hepato-splenomegaly, Obese Extremities: No clubbing, No cyanosis, No edema, Capillary Refill Less than 3 Seconds Neurological: Cranial nerves II-XII grossly intact, Neuro grossly intact Psych/Mental Status: Normal Affect, Appropriate, Alert and oriented to time, place, person, mood and affect Microbiology Past 72 Hours 12/16/19 17:00 Stool Stool Occult Blood (TED) - Final Current Medications Acetaminophen (Tylenol) 500 mg PO Q4H PRN PRN PRN Reason: Temp > 100.4 F Al Hydroxide/Mg Hydroxide (Mylanta Ii) 30 ml PO Q6H PRN PRN PRN Reason: dyspesia Last Admin: 12/17/19 09:42 Dose: 30 ml Documented by: Albuterol Sulfate (Ventolin Aerosols) 2.5 mg INHALATION Q2H PRN PRN PRN Reason: Dyspnea, wheezing Amoxicillin/Clavulanate Potassium (Augmentin Tablet) 875 mg PO BID [facility] Stop: 12/22/19 22:01 Last Admin: 12/19/19 09:23 Dose: 875 mg Documented by: Bisacodyl (Dulcolax) 10 mg RECTAL DAILY PRN PRN Reason: Constipation Dicyclomine HCl (Bentyl) 20 mg PO Q6H PRN PRN PRN Reason: abdominal discomfort Last Admin: 12/18/19 08:57 Dose: 20 mg Documented by: Ferrous Gluconate (F[facility]ous Gluconate) [facility] Last Admin: 12/19/19 09:24 Dose: 324 mg Documented by: Folic Acid (Folic Acid) 1 mg PO DAILY@0800 [facility] Last Admin: 12/19/19 09:23 Dose: 1 mg Documented by: Gabapentin (Neurontin) 300 mg PO Q8H PRN PRN PRN Reason: moderate to severe anxiety Last Admin: 12/19/19 09:34 Dose: 300 mg Documented by: Hydroxyzine Pamoate (Vistaril Pamoate Capsule) 50 mg PO Q4H PRN PRN PRN Reason: mild anxiety Last Admin: 12/17/19 17:23 Dose: 50 mg Documented by: Ibuprofen (Motrin) 600 mg PO Q8H PRN PRN PRN Reason: Pain Score 1-10/10 Last Admin: 12/16/19 21:49 Dose: 600 mg Documented by: Lisinopril (Zestril) 5 mg PO DAILY [facility] Last Admin: 12/19/19 09:34 Dose: 5 mg Documented by: Loperamide HCl (Imodium) 2 mg PO Q4H PRN PRN PRN Reason: LOOSE STOOLS Last Admin: 12/17/19 17:19 Dose: 2 mg Documented by: Nicotine (Nicoderm Cq (Pbkc)) 21 mg TRANSDERM. DAILY [facility] Last Admin: 12/19/19 09:24 Dose: 21 mg Documented by: Ondansetron HCl (Zofran) 8 mg PO Q8H PRN PRN PRN Reason: NAUSEA Pantoprazole Sodium (Protonix) 40 mg PO DAILY [facility] Last Admin: 12/19/19 09:23 Dose: 40 mg Documented by: Phenobarbital (Phenobarbital) 32.4 mg PO Q6H [facility]; Taper Stop: 12/19/19 16:59 Last Admin: 12/19/19 11:35 Dose: 32.4 mg Documented by: Senna (Senokot) 2 tablet PO QHS PRN PRN PRN Reason: Constipation Sodium Chloride () 10 - 40 ml IV UD PRN PRN Reason: SALINE FLUSH Last Admin: 12/15/19 17:29 Dose: 10 ml Documented by: Thiamine HCl (Vitamin B1) 100 mg PO DAILYCM [facility] Last Admin: 12/19/19 09:23 Dose: 100 mg Documented by: Trazodone HCl (Desyrel) 100 mg PO QHS PRN PRN Reason: INSOMNIA Last Admin: 12/18/19 22:52 Dose: 100 mg Documented by: Discharge Activity: - - Advise routine activity continuation. May resume sexual activity in: No Restrictions Weight Bearing Status: Weight bearing as tolerated Call your doctor if you observe: Fever of 101 or Higher, Inability to urinate, Inability to have a bowel movement, Shortness of breath, Dizziness, Fainting spells, Chest pain, Uncontrolled pain Home Medications: Medications to take at Discharge Omeprazole 40 mg PO DAILY 04/30/17 Amox/Clavulanate Tablet [Augmentin Tablet] 875 mg PO BID #6 tab 12/18/19 Ferrous Gluconate 324 mg PO BIDCM #60 tab 12/18/19 Folic Acid 1 mg PO DAILY@0800 #30 tab 12/18/19 Lisinopril [Zestril] 5 mg PO DAILY #60 tab 12/18/19 Nicotine [Nicoderm Cq] 21 mg TRANSDERM. DAILY #14 patch 12/18/19 Thiamine Hydrochloride [Vitamin B1] 100 mg PO DAILYCM #30 tab 12/18/19 traZODone [Desyrel] 100 mg PO QHS PRN #30 tab 12/18/19 Following Prescriptions Were Given to Patient: Amox/Clavulanate Tablet [Augmentin Tablet] 875 mg PO BID #6 tab Transmission Status: P[facility] to [facility] traZODone [Desyrel] 100 mg PO QHS PRN #30 tab PRN Reason: Insomnia Transmission Status: Pending to [facility] Ferrous Gluconate 324 mg PO BIDCM #60 tab Transmission Status: Pending to [facility] Folic Acid 1 mg PO DAILY@0800 #30 tab Transmission Status: Pending to [facility] Nicotine [Nicoderm Cq] 21 mg TRANSDERM. DAILY #14 patch Transmission Status: Pending to [facility] Thiamine Hydrochloride [Vitamin B1] 100 mg PO DAILYCM #30 tab Transmission Status: Pending to [facility] Lisinopril [Zestril] 5 mg PO DAILY #60 tab Transmission Status: Pending to [facility] Primary Care Physician: Princess Baca MD [STAFF PHYSICIAN] - Please follow up with your Primary Care Physician in: Please follow-up with Dr. Baca to establish. Please Follow Up With: Dental Clinic When: Please work with Case management/Social work to find local dentist. Please Follow Up With: [facility] When: Continue to work with [facility] upon discharge to assure ongoing sobriety. Patient Instructions: Life After Combat: Coping with Alcohol Abuse, Prediabetes, Taking DOMINGO Inhibitors, Controlling High Blood Pressure, Low-Salt Choices, Your Body's Response to Anxiety, Your High Blood Pressure Risk Factors, Treating Anxiety Disorders with Therapy, Addiction: Your Treatment Options, ED Anemia Iron Deficiency, ED Tooth Pain, ED Panic Attack, ED Alcohol Abuse Medical Necessity - Tobacco Use Smoking Status: Heavy Smoker (>10/day) Tobacco Use: Cigarettes - Patient with ongoing 1 to 1.5 pack/day cigarette tobacco usage since youth. Meaningful Use Info Meaningful Use Diagnoses (Choose all that apply): None applicable Inpatient E&M: 35833 Disch Hosp
[2019-12-19 14:13] VITALS: BP 128/69; PULSE 90; RESP 18; TEMP 36.7; O2SAT 96
== END 2019-12-19 14:12 | disposition home or self-care (01) | DRG 775 ==
LOC: ED 12:16 → MS3 12:27
PROVIDERS: Admitting Provider Family Medicine; Emergency Provider Emergency Medicine; PCP Family Medicine; Visit Provider Internal Medicine
DX: F10.230 Alcohol dependence with withdrawal, uncomplicated (principal); F32.9 Major depressive disorder, single episode, unspecified; F41.9 Anxiety disorder, unspecified; E87.6 Hypokalemia; D50.9 Iron deficiency anemia, unspecified; E66.01 Morbid (severe) obesity due to excess calories; Z86.711 Personal history of pulmonary embolism; Z81.1 Family history of alcohol abuse and dependence; Z79.899 Other long term (current) drug therapy; Z68.41 Body mass index [BMI] 40.0-44.9, adult; K21.9 Gastro-esophageal reflux disease without esophagitis; Y90.8 Blood alcohol level of 240 mg/100 ml or more; F17.210 Nicotine dependence, cigarettes, uncomplicated; R73.03 Prediabetes; K04.7 Periapical abscess without sinus; F41.0 Panic disorder [episodic paroxysmal anxiety]; R74.8 Abnormal levels of other serum enzymes
CPT/HCPCS: 36415; 80053; 80307; 80320; 81001; 82274; 82607; 82728; 82746; 83036; 83540; 83550; 83690; 83735; 84100; 84703; 85025; 97802; 97803; 99285; 99406; J7120; 90686; A4216; G0480

== ENCOUNTER → 2019-12-23 14:26 | Outpatient (CLI) | payer MEDICAID, SELFPAY ==
[2019-12-23 14:01] VITALS: BMI 42.8
[2019-12-23 14:28] LABS: Red Blood Cells-Urine 0 SEEN /hpf (0-5)
[2019-12-23 16:39] LABS: Absolute Lymphocyte Count 1.28 X10^3/uL (0.83-4.51); Absolute Neutrophil Count 3.1 X10^3/uL (2.0-7.7); Basophil# 0.08 X10^3/uL; Basophil% 1.5 % (0-1); Eosinophil# 0.18 X10^3/uL; Eosinophils% 3.4 % (0-5); Hematocrit 32.5 % (37-47); Hemoglobin 8.5 g/dL (12.0-15.0); Lymphocyte # 1.28 X10^3/ul (4.0); Lymphocyte % 24.2 % (19-41); Mean Corp Hgb Conc 26.2 g/dL (32-36); Mean Corpuscular Hgb 19.1 pg (27.0-32.0); Mean Platelet Vol. 10.7 fl (6.2-12.0); Monocyte# 0.62 X10^3/uL; Monocyte% 11.7 % (0-10); NRBC Flagged by Analyzer 0 % (0-5); Neutrophil # 3.08 X10^3/uL (2.7-7.7); Neutrophil % 58.3 % (47-70); POSITIVE MORPHOLOGY YES; Platelet Count 322 K/mm3 (150-450); RBC Distribution Width CV 28.7 % (11.6-14.6); RBC Distribution Width SD 72.2 fl (35.1-43.9); Red Blood Count 4.45 M/mm3 (4.2-5.4); White Blood Count 5.3 K/mm3 (4.4-11.0)
[2019-12-23 16:41] LABS: Differential Indicated SCAN CRITERIA MET
[2019-12-23 16:52] LABS: Color, Urine Yellow (Yellow); Glucose, Dipstick Normal (Normal); Ketone-Dipstick 5 mg/dl (Negative); Leukocyte Esterase-Dipstick 100 /ul (Negative); Nitrite-Dipstick Negative (Negative); Occult Blood-Urine Negative /ul (Negative); Protein-Dipstick 15 mg/dl (Negative); Urine Bilirubin Dipstick Negative (Negative); Urine Clarity Clear (Clear); Urine Urobilinogen 1 mg/dl (Normal)
[2019-12-23 17:22] LABS: AST(SGOT) 41 U/L (15-37); Alanine Aminotransfer ALT/SGPT 42 U/L (13-56); Albumin, Serum 3.8 g/dL (3.2-5.0); Alkaline Phosphatase 72 U/L (45-117); Anion Gap 7 (5-15); BUN 6 mg/dL (7-18); Bacteria 1+ /hpf (None Seen); Calcium,Total 8.6 mg/dL (8.5-10.1); Chloride 104 mmol/L (98-107); Creatinine, Serum 0.86 mg/dL (0.55-1.02); EST Glomerular Filtration Rate 77 mL/min (>60); Est Glom Filt Rate - Afr Amer 93 mL/min (>60); Globulin 3.8 g/dL (2.2-4.2); Glucose 90 mg/dL (74-106); Mucous, Urine 2+ /hpf (<or=2+); Potassium 3.5 mmol/L (3.5-5.1); Protein, Total 7.6 g/dL (6.4-8.2); Sodium Level 136 mmol/L (136-145); Squamous Epithelial Cells - UA 0-5 SEEN /hpf (5-10); Thyroid Stim Hormone (TSH) 1.85 uIU/mL (0.358-3.74); White Blood Cells 5-10 SEEN /hpf (0-5)
== END ==
PROVIDERS: PCP Internal Medicine; Referring Provider Nurse Practitioner Family; Visit Provider Nurse Practitioner Family
DX: D50.9 Iron deficiency anemia, unspecified (principal); F10.20 Alcohol dependence, uncomplicated; F32.9 Major depressive disorder, single episode, unspecified; F41.9 Anxiety disorder, unspecified; I10 Essential (primary) hypertension; R30.0 Dysuria
CPT/HCPCS: 36415; 80053; 81001; 84443; 85025

== ENCOUNTER 2020-02-09 11:00 | Outpatient (RCR) | payer MEDICAID, SELFPAY ==
[2020-01-23 08:45] VITALS: BMI 39.9
--- NOTE | 2020-02-01 11:31 | HP.PTEVAL_ITS ---
Patient's Visit Information MIGUEL KELLY is a 44 year old F referred to Physical Therapy by Dr. Princess Baca MD with a diagnosis of RIGHT KNEE PAIN LEFT KNEE PAIN ,UNSPECIFIED OSTEOARTHRITIS. Date of Evaluation: 02/01/20 Physical Therapist: Mike Richmond, PT, Cert MDT, OCS - Visit Plan Frequency: 2x /Week Duration: 4 Weeks Plan: PT INTERVENTIONS PRES'S QUADS/HAMS/HIP,GRADED ROM,FUNCTIONAL STRENGTHENING AND MODALTIES FOR PAIN RELEIVE - Subjective This 44 y/o female presenst to physical therapy with pain in right and left knee. Patient has had knee pain 2 months. Patient ETOH and has been detox for past 2 months and detox program [facility]. But DR thought the excessive cuased DJD in knees. Patient had x-rays showed DJD /OA . Recommended PT. Patient pain is located global decsribed as ache. Aggraveting factors elevations from chair/toilet,unable to squat /kneeling and difficulty with stairs one step at a time. Alleviating rest ,ibuporofin.Denies parathesia/tingling-Patient able sleep at night . Patient has difficulty with walking and standing affects housework ADLS. Patient condition affects QOL. SOCIAL: . VOCATION: unemployed - Pain Right Pain Intensity (Out of 10): 5 Pain Intensity Range: 10 Left Knee Pain Intensity (Out of 10): 5 Pain Intensity Range: 10 - Objective POSTURE: mild knee valgus. PALAPTION: tender medial/lateral knee. EDEMA: mild effusion. AROM:supine knee flexion 5-123 R ,5-125 L. STAIRS: one steps at time. MMT: quads/hams 4-/5,hip flexion 4-/5 ,hip abd 3+/5.ankle 4/5. SLS: 30SEC X2 EA - Special Tests R Knee Zachary - Meniscus: Negative R Knee Tam - ACL: Negative R Knee Anterior Drawer - ACL: Negative R Knee Valgus - MCL: Negative R Knee Varus - LCL: Negative R Knee Patellar Apprehension - PFS: Negative L Knee Zachary - Meniscus: Negative L Knee Tam - ACL: Negative L Knee Anterior Drawer - ACL: Negative L Knee Valgus - MCL: Negative L Knee Varus - LCL: Negative - Goals Goal 1:: Indepenadant with HEP. Goal Time Frame: 4-6 Weeks Goal 2:: Patient to improve strength quads/hams 4/5,hip 4/5 and hip abd 4-/5 to improve function and gait. Goal Time Frame: 4-6 Weeks Goal 3:: Patient to decrease knee pain by 50% or > to improve function. Goal Time Frame: 4-6 Weeks Goal 4:: Patient to be able to perform ADL's and housework tasks stairs with in limiations with less pain in knees. Goal Time Frame: 4-6 Weeks Goal 5:: Patient to improve LFES score by 5 -points or > to improve QOL/FUNCTION. Goal Time Frame: 4-6 Weeks - Rehabilitation Potential Physical Therapy Diagnosis: This patient has bilateral knee pain with weakness ,decrease ROM ,and pain unable to squat and kneel impairs ADL's and function thus will benifit from skilled PT Rehabilitation Potential: Good - Anticipated Interventions Patient/Client Instruction: Educate patient on: Condition, Plan of Care For the Purpose of:: To decrease pain, To improve nutrient delivery to tissue, To improve muscle performance and motor function, To improve ability to perform ADL's, To increase tolerance to activity/condition/position, To improve performance and independence with ADL's, To improve ability of physical actions for home/community/work/leisure, To improve gait and locomotor functions, To improve health of tissue, To decrease soft tissue restriction, To improve ability to perform tasks related to life management Therapeutic Exercise to Include: Strength training, Balance training, Flexibilty training, Active ROM For the Purpose of:: To decrease pain, To increase ROM, To improve muscle performance and motor function, To improve ability to perform ADL's, To increase tolerance to activity/condition/position, To improve ability of physical actions for home/community/work/leisure, To improve health of tissue, To decrease soft tissue restriction, To increase flexibility/ROM, To improve ability to perform tasks related to life management TENS: Yes IF ES: Yes Cryotherapy (ice pack, ice massage): Yes Thermo therapy (hot pack): Yes Ultrasound (thermal/non thermal): Yes For the Purpose of:: To decrease pain, To decrease swelling/inflammation, To increase ROM, To improve nutrient delivery to tissue, To increase oxygenation perfusion, To improve health of tissue, To decrease soft tissue restriction Thank you for the opportunity to evaluate your patient. For Medicare and Medicare HMO plans, please review the plan of care and approve it. It will need to be FAXED BACK to us at [phone] for Medicare purposes. For Medicare only, by signing this I certify the plan of care. Please let me know if there are questions or concerns regarding this plan of care. Physician Signature: Date:
--- NOTE | 2020-03-01 10:01 | HP.PT.NRP ---
MIGUEL KELLY was seen in my office for initial evaluation on 02/01/20. The following Plan of Care was established for this patient: Initial Frequency: 2x /Week Initial Duration: 4 Weeks Patient/Client Instruction: Educate patient on: Condition, Plan of Care For the Purpose of:: To decrease pain, To improve nutrient delivery to tissue, To improve muscle performance and motor function, To improve ability to perform ADL's, To increase tolerance to activity/condition/position, To improve performance and independence with ADL's, To improve ability of physical actions for home/community/work/leisure, To improve gait and locomotor functions, To improve health of tissue, To decrease soft tissue restriction, To improve ability to perform tasks related to life management Therapeutic Exercise to Include: Strength training, Balance training, Flexibilty training, Active ROM For the Purpose of:: To decrease pain, To increase ROM, To improve muscle performance and motor function, To improve ability to perform ADL's, To increase tolerance to activity/condition/position, To improve ability of physical actions for home/community/work/leisure, To improve health of tissue, To decrease soft tissue restriction, To increase flexibility/ROM, To improve ability to perform tasks related to life management TENS: Yes IF ES: Yes Cryotherapy (ice pack, ice massage): Yes Thermo therapy (hot pack): Yes Ultrasound (thermal/non thermal): Yes For the Purpose of:: To decrease pain, To decrease swelling/inflammation, To increase ROM, To improve nutrient delivery to tissue, To increase oxygenation perfusion, To improve health of tissue, To decrease soft tissue restriction This patient was last seen in our office . Pertinent comments regarding their Physical therapy will appear below: This patient seen for knee pain with ROM/strengthening for HEP At this point I will be discontinuing this patient from physical therapy. I would be happy to see this patient again in the future if found appropriate by the physician. Thank you! Mike Richmond, PT, Cert MDT, OCS
== END 2020-02-09 19:00 | disposition home or self-care (01) ==
LOC: PT 11:00
PROVIDERS: PCP Internal Medicine; Referring Provider Internal Medicine; Visit Provider Internal Medicine
DX: M25.561 Pain in right knee (principal); M25.562 Pain in left knee; M19.90 Unspecified osteoarthritis, unspecified site
CPT/HCPCS: 97110; 97162

== ENCOUNTER → 2020-06-28 13:33 | Outpatient (CLI) | payer MEDICAID, SELFPAY ==
[2020-06-28 13:01] VITALS: BMI 36.4
[2020-06-28 15:02] LABS: Absolute Lymphocyte Count 1.85 X10^3/uL (0.83-4.51); Absolute Neutrophil Count 4.6 X10^3/uL (2.0-7.7); Basophil# 0.03 X10^3/uL; Basophil% 0.4 % (0-1); Eosinophil# 0.22 X10^3/uL; Eosinophils% 3.1 % (0-5); Hemoglobin 13.5 g/dL (12.0-15.0); Lymphocyte # 1.85 X10^3/ul (4.0); Mean Corp Hgb Conc 31.4 g/dL (32-36); Mean Corpuscular Hgb 27.8 pg (27.0-32.0); Mean Corpuscular Volume 88.5 fL (81-99); Mean Platelet Vol. 12.1 fl (6.2-12.0); Monocyte# 0.39 X10^3/uL; Monocyte% 5.5 % (0-10); NRBC Flagged by Analyzer 0 % (0-5); Neutrophil % 64.7 % (47-70); Platelet Count 253 K/mm3 (150-450); RBC Distribution Width CV 14.1 % (11.6-14.6); RBC Distribution Width SD 45.3 fl (35.1-43.9); Red Blood Count 4.86 M/mm3 (4.2-5.4); White Blood Count 7.1 K/mm3 (4.4-11.0)
[2020-06-28 15:09] LABS: Anion Gap 3 (5-15); BUN 15 mg/dL (7-18); BUN/Creat Ratio 16.3 RATIO (10-20); Calcium,Total 8.7 mg/dL (8.5-10.1); Chloride 106 mmol/L (98-107); Creatinine, Serum 0.92 mg/dL (0.55-1.02); EST Glomerular Filtration Rate 71 mL/min (>60); Est Glom Filt Rate - Afr Amer 86 mL/min (>60); Glucose 107 mg/dL (74-106); Potassium 3.8 mmol/L (3.5-5.1); Sodium Level 137 mmol/L (136-145)
== END ==
PROVIDERS: PCP Internal Medicine; Referring Provider Internal Medicine; Visit Provider Internal Medicine
DX: I10 Essential (primary) hypertension (principal)
CPT/HCPCS: 36415; 80048; 85025

== ENCOUNTER → 2020-08-29 15:48 | Outpatient (CLI) | payer MEDICAID, SELFPAY ==
[2020-08-29 14:32] VITALS: BMI 36.3
[2020-09-01 00:11] LABS: Chlamydia By Nucleic Acid AMP Negative (Negative)
[2020-09-01 10:00] LABS: Gonococcus By Nucleic Acid AMP Negative (Negative)
[2020-09-04 17:33] LABS: HPV APTIMA, High Risk Negative (Negative)
== END ==
PROVIDERS: PCP Internal Medicine; Referring Provider Nurse Practitioner Women's Health; Visit Provider Nurse Practitioner Women's Health
DX: Z12.4 Encounter for screening for malignant neoplasm of cervix (principal); Z11.3 Encounter for screening for infections with a predominantly sexual mode of transmission
CPT/HCPCS: 87491; 87591; 87624; 88175; G0145

== ENCOUNTER → 2020-09-18 07:40 | Outpatient (CLI) | payer MEDICAID, SELFPAY ==
[2020-08-29 14:32] VITALS: BMI 36.3
--- NOTE | 2020-09-18 07:42 | US_ITS ---
STUDY: ULTRASOUND OF THE FEMALE PELVIS - COMPLETE REASON FOR EXAM: Female, 45 years old. Enlarged uterus LMP: 07/30/2020. TECHNIQUE: Transabdominal and Transvaginal TECHNICAL QUALITY: Adequate. COMPARISON: None. FINDINGS: The uterus is anteverted and is in a midline position. The uterus is enlarged and measures 13 cm x 7.4 cm x 5.3 cm. There is a Nabothian cyst of the cervix. The endometrium measures 12 mm in thickness, and is heterogeneous (striated). There is no demonstrated endometrial mass. Heterogeneous appearance of the uterus. Multiple fibroids. The largest fibroid measures 3.3 cm x 3.4 cm x 2.3 cm. I.U.D. - The patient does not have an I.U.D. The right ovary is visualized. The right ovary measures 2.7 cm x 3.4 cm x 1.7 cm. There is a 1.3 cm x 1.4 cm x 1.1 cm ovarian follicle. There is no visualized right adnexal mass or complex lesion. There is normal arterial and normal venous vascularity. The left ovary is visualized. The left ovary measures 3.4 cm x 3.4 cm x 1.9 cm. There is a 1.4 cm x 1.2 cm x 1.3 cm follicle. There is no visualized left adnexal mass or complex lesion. There is normal arterial and normal venous vascularity. There is no fluid in the cul-de-sac. US/Pelvic (Non ) IMPRESSION: Enlarged fibroid uterus. Small bilateral ovarian follicles. Electronically Signed: Kevin Strong MD at 10:05 EDT , Service support ,
--- NOTE | 2020-09-18 07:42 | US_ITS ---
STUDY: ULTRASOUND OF THE FEMALE PELVIS - COMPLETE REASON FOR EXAM: Female, 45 years old. Enlarged uterus LMP: 07/30/2020. TECHNIQUE: Transabdominal and Transvaginal TECHNICAL QUALITY: Adequate. COMPARISON: None. FINDINGS: The uterus is anteverted and is in a midline position. The uterus is enlarged and measures 13 cm x 7.4 cm x 5.3 cm. There is a Nabothian cyst of the cervix. The endometrium measures 12 mm in thickness, and is heterogeneous (striated). There is no demonstrated endometrial mass. Heterogeneous appearance of the uterus. Multiple fibroids. The largest fibroid measures 3.3 cm x 3.4 cm x 2.3 cm. I.U.D. - The patient does not have an I.U.D. The right ovary is visualized. The right ovary measures 2.7 cm x 3.4 cm x 1.7 cm. There is a 1.3 cm x 1.4 cm x 1.1 cm ovarian follicle. There is no visualized right adnexal mass or complex lesion. There is normal arterial and normal venous vascularity. The left ovary is visualized. The left ovary measures 3.4 cm x 3.4 cm x 1.9 cm. There is a 1.4 cm x 1.2 cm x 1.3 cm follicle. There is no visualized left adnexal mass or complex lesion. There is normal arterial and normal venous vascularity. There is no fluid in the cul-de-sac. US/Transvaginal Non- IMPRESSION: Enlarged fibroid uterus. Small bilateral ovarian follicles. Electronically Signed: Kevin Strong MD at 10:05 EDT , Service support ,
--- NOTE | 2020-09-18 07:42 | BI_ITS ---
MAMMOGRAPHY - BILATERAL SCREENING REASON FOR EXAM: Female, 45 years old. Routine annual screening examination. PERTINENT HISTORY: Non-contributory. TECHNIQUE: Digital bilateral breast micheal (3D mammographic acquisition) in the CC and MLO projections. 2-D mediolateral oblique (MLO) and craniocaudad (CC) views of both breasts were obtained. CAD: Full Field Digital Mammography with Computer Added Detection was performed. COMPARISON: None. Baseline examination. FINDINGS: Breast Composition: The breasts are heterogeneously dense, which may obscure small masses. There are no dominant masses or suspicious calcifications. No other significant abnormalities are identified. BI/SCRN MAMM (CAD)W/MICHEAL BILAT IMPRESSION: Negative screening mammogram. Yearly followup mammogram recommended. (A) ASSESSMENT CATEGORY: BIRADS Category 1: Negative. A letter regarding these results will be sent to the patient by the facility within 30 days. Approximately 10% of breast cancers are not detected by mammography. A normal mammogram should not delay biopsy of a clinically suspicious abnormality. [id number] Electronically Signed: Kevin Strong MD at 8:35 EDT , Service support ,
== END ==
PROVIDERS: PCP Internal Medicine; Referring Provider Nurse Practitioner Women's Health; Visit Provider Nurse Practitioner Women's Health
DX: Z12.31 Encounter for screening mammogram for malignant neoplasm of breast (principal); N85.2 Hypertrophy of uterus
CPT/HCPCS: 76830; 76856; 77063; 77067; 93976

== ENCOUNTER → 2020-10-30 15:28 | Outpatient (CLI) | payer MEDICAID, SELFPAY ==
[2020-10-18 08:44] VITALS: BMI 39.2
[2020-10-30 16:56] LABS: Bacteria 0 SEEN /hpf (None Seen); Mucous, Urine 0 SEEN /hpf (<or=2+); Red Blood Cells-Urine 0 SEEN /hpf (0-5); White Blood Cells 0 SEEN /hpf (0-5)
[2020-10-30 17:41] LABS: Color, Urine Yellow (Yellow); Glucose, Dipstick Normal (Normal); Ketone-Dipstick Negative (Negative); Leukocyte Esterase-Dipstick Negative /ul (Negative); Nitrite-Dipstick Negative (Negative); Occult Blood-Urine 10 /ul (Negative); Protein-Dipstick Negative (Negative); Urine Bilirubin Dipstick Negative (Negative); Urine Clarity Clear (Clear); Urine Urobilinogen Normal (Normal)
[2020-10-30 18:02] LABS: Squamous Epithelial Cells - UA 0-5 SEEN /hpf (5-10)
== END ==
PROVIDERS: PCP Internal Medicine; Referring Provider Physician Assistant Surgical; Visit Provider Physician Assistant Surgical
DX: N39.0 Urinary tract infection, site not specified (principal)
CPT/HCPCS: 81001; 87086; 87088

== ENCOUNTER → 2021-01-01 08:51 | Outpatient (CLI) | payer MEDICAID, SELFPAY ==
[2021-01-01 12:32] LABS: Absolute Lymphocyte Count 1.88 X10^3/uL (0.83-4.51); Absolute Neutrophil Count 3.4 X10^3/uL (2.0-7.7); Basophil# 0.05 X10^3/uL; Basophil% 0.8 % (0-1); Eosinophil# 0.19 X10^3/uL; Eosinophils% 3.2 % (0-5); Hematocrit 44.4 % (37-47); Hemoglobin 14.3 g/dL (12.0-15.0); Lymphocyte # 1.88 X10^3/ul (0.83-4.51); Lymphocyte % 31.3 % (19-41); Mean Corp Hgb Conc 32.2 g/dL (32-36); Mean Corpuscular Hgb 28.3 pg (27.0-32.0); Mean Corpuscular Volume 87.9 fL (81-99); Mean Platelet Vol. 10.9 fl (6.2-12.0); Monocyte# 0.44 X10^3/uL; Monocyte% 7.3 % (0-10); NRBC Flagged by Analyzer 0 % (0-5); Neutrophil # 3.41 X10^3/uL (2.7-7.7); Neutrophil % 56.7 % (47-70); Platelet Count 288 K/mm3 (150-450); RBC Distribution Width CV 13.2 % (11.6-14.6); RBC Distribution Width SD 42.6 fl (35.1-43.9); Red Blood Count 5.05 M/mm3 (4.2-5.4)
[2021-01-01 12:55] LABS: ALB/GLOB Ratio 0.9 RATIO (0.9-2.4); AST(SGOT) 12 U/L (15-37); Alanine Aminotransfer ALT/SGPT 31 U/L (13-56); Albumin, Serum 3.5 g/dL (3.2-5.0); Alkaline Phosphatase 77 U/L (45-117); Anion Gap 7 (5-15); BUN 13 mg/dL (7-18); BUN/Creat Ratio 12.7 RATIO (10-20); Calcium,Total 9.1 mg/dL (8.5-10.1); Chloride 104 mmol/L (98-107); Cholesterol 174 mg/dL (200); Creatinine, Serum 1.02 mg/dL (0.55-1.02); EST Glomerular Filtration Rate 63 mL/min (>60); Est Glom Filt Rate - Afr Amer 76 mL/min (>60); Glucose 98 mg/dL (74-106); High Density Lipoprotein 59 mg/dL; Protein, Total 7.5 g/dL (6.4-8.2); Sodium Level 137 mmol/L (136-145); Triglycerides 53 mg/dL; Very Low Density Lipoprotein 11 mg/dL (5-40)
[2021-01-01 13:05] LABS: Hemoglobin A1c 5.4 % (3.8-5.6)
[2021-01-01 13:32] LABS: HIV - WCH Non-Reactive (Nonreactive); Hepatitis B Surface Antigen Non-Reactive (Nonreactive); Hepatitis C Antibody Non-Reactive (Nonreactive); Syphilis Antibodies Non-reactive
[2021-01-01 14:37] LABS: Chlamydia Trachomatis by PCR Negative (Negative); Neisserai gonorrhoeae by PCR Negative (Negative); Probe Check PASS; Sample Adequacy Control PASS; Specimen Processing Control PASS
[2021-01-02 12:30] LABS: HSV 1 IgG < 0.91 index (0.00-0.90)
== END ==
PROVIDERS: Nurse Practitioner Women's Health; PCP Internal Medicine; Referring Provider Internal Medicine; Visit Provider Internal Medicine
DX: Z20.2 Contact with and (suspected) exposure to infections with a predominantly sexual mode of transmission (principal); E66.9 Obesity, unspecified; I10 Essential (primary) hypertension
CPT/HCPCS: 36415; 80053; 80061; 83036; 85025; 86695; 86696; 86703; 86780; 86803; 87340; 87491; 87591

== ENCOUNTER 2021-03-27 10:48 | Outpatient (CLI) | payer MEDICAID, SELFPAY | END 2021-03-27 23:59 | disposition short-term general hospital (02) | LOC: LABSPEC 10:49 | PROVIDERS: PCP Internal Medicine; Visit Provider Physician Assistant | DX: R05.9 Cough, unspecified (principal) | CPT/HCPCS: 87635; U0003; U0005 ==

== ENCOUNTER 2021-04-04 11:31 | Outpatient (CLI) | payer MEDICAID, SELFPAY ==
--- NOTE | 2021-04-04 11:33 | RAD_ITS ---
STUDY: X-RAY CHEST REASON FOR EXAM: Female, 45 years old. Cough, wheezing TECHNIQUE: PA and lateral views of the chest. COMPARISON: Comparison is made with prior study dated 07/10/2020. FINDINGS: The lungs are clear and expanded. There is no demonstrated pleural abnormality. Normal size heart. Normal mediastinum and mike. Normal visualized pulmonary arteries. Normal visualized aortic arch and descending thoracic aorta. Normal visualized thoracic spine. Normal visualized ribs, clavicles, and shoulders. There is no demonstrated abnormality of the visualized soft tissue structures of the upper abdomen. RAD/Chest PA and Lateral IMPRESSION: Normal x-ray examination of the chest. Electronically Signed: Kevin Strong MD at 15:27 EST , Service support ,
== END 2021-04-04 23:59 | disposition short-term general hospital (02) ==
LOC: MTRAD 11:32
PROVIDERS: PCP Internal Medicine; Referring Provider Physician Assistant; Visit Provider Physician Assistant
DX: R05.9 Cough, unspecified (principal); R06.2 Wheezing
CPT/HCPCS: 71046

== ENCOUNTER 2021-06-05 19:59 | Emergency (ER) | payer MEDICAID, SELFPAY ==
[2021-06-05 20:00] VITALS: BP 157/91; PULSE 77; RESP 16; TEMP 36.2; O2SAT 97; BMI 41.1
[2021-06-05 21:26] VITALS: PULSE 74; RESP 18; O2SAT 99
[2021-06-05 21:29] VITALS: BP 134/74
--- NOTE | 2021-06-05 21:34 | ED.VIS.FEGU ---
HPI HPI - Female History of Present Illness Chief Complaint: Female C/O Informant: patient Narrative Narrative: Patient states today when she was going to the bathroom she noticed a bulge in her genital area. It is intermittent, mostly bulging when she is bearing down or using the bathroom but lying here now on the bed she states it is not bothering her. Even when it was bulging she did not have any pain or problems urinating, although she admits she does have chronic minor urinary incontinence that is unchanged. No issues having bowel movements lately. No bleeding. She has 4 children 3 of them were born by spontaneous vaginal delivery and she had 1 , none of which were in the past year. [facility] Medical History Acute maxillary sinusitis, unspecified Alcohol abuse Anxiety COVID-19 Depression Enlarged uterus GERD (gastroesophageal reflux disease) Hypertension Obesity (BMI 30-39.9) Osteoarthritis of both knees Right elbow pain Sebaceous cyst Swelling of thyroid gland Home Medications norethindrone (contraceptive) 0.35 mg tablet 0.35 mg PO QDAY #84 tab 09/18/20 [Rx Last Taken Unknown] aripiprazole 5 mg tablet 7.5 mg PO QHS #90 tab 11/09/20 [Rx Last Taken Unknown] hydroxyzine HCl 25 mg tablet 25 mg PO BID PRN #30 tab 11/29/20 [Rx Last Taken Unknown] buspirone 10 mg tablet 10 mg PO TID 90 Days #270 tab 12/10/20 [Rx Last Taken Unknown] folic acid 1 mg tablet 1 mg PO DAILY #90 tab 12/21/20 [Rx Last Taken Unknown] ferrous sulfate 325 mg (65 mg iron) tablet 325 mg PO DAILY #90 tab 01/02/21 [Rx Last Taken Unknown] omeprazole 40 mg capsule,delayed release 40 mg PO DAILY #90 cap 01/02/21 [Rx Last Taken Unknown] valacyclovir 500 mg tablet 500 mg PO BID #10 tab 01/03/21 [Rx Last Taken Unknown] meloxicam 15 mg tablet 15 mg PO DAILY PRN #30 tab 02/05/21 [Rx Last Taken Unknown] albuterol sulfate 90 mcg/actuation aerosol inhaler 1 - 2 puff INHALATION Q6H PRN #8.5 g 03/26/21 [Rx Last Taken Unknown] benzonatate 200 mg capsule 200 mg PO BID PRN #30 cap 03/26/21 [Rx Last Taken Unknown] guaifenesin 400 mg tablet 400 mg PO TID PRN #30 tab 03/26/21 [Rx Last Taken Unknown] azithromycin 250 mg tablet See Rx Instructions PO .COMPLEX #6 tab 04/01/21 [Rx Last Taken Unknown] dextromethorphan HBr 15 mg tablet 30 mg PO Q8H PRN #30 tab 04/01/21 [Rx Last Taken Unknown] prednisone 20 mg tablet 40 mg PO DAILY #10 tab 04/01/21 [Rx Last Taken Unknown] losartan 25 mg tablet 25 mg PO DAILY #90 tab 04/09/21 [Rx Last Taken Unknown] bupropion HCl 150 mg tablet,12 hr sustained-release 450 mg PO DAILY 90 Days #270 ea 04/25/21 [Rx Last Taken Unknown] Allergy/AdvReac Type Severity Reaction Status Date / Time cinnamon Allergy Rash Verified 06/05/21 20:02 Family History Grandmother Cancer Grandfather Dementia Other Depression with anxiety Surgical History History of History of tubal ligation [place] teeth removed Social History household members: children housing: house number of children: 4 current occupational status: employed current occupation: [employer] history of recent travel: No sexually active: Yes Smoking Status: Current every day smoker tobacco type: cigarettes Tobacco: How many years used: 15 alcohol intake: former year quit: 2019 details: 8 months sober substance use type: does not use diet: diabetic and low carbohydrate what type of physical activity do you participate in: walking seatbelt use: always do you feel safe at home: Yes additional social history: single ROS ROS ED Constitutional Constitutional ED: Denies chills or fever(s) Eyes Eyes: Denies change in vision or diplopia ENT ENT ED: Denies rhinorrhea or sore throat Cardiovascular Cardiovascular: Denies chest pain or palpitations Respiratory/Chest Respiratory/Chest: Denies cough or dyspnea Gastrointestinal Gastrointestinal: Denies abdominal pain, diarrhea, nausea or vomiting Genitourinary Genitourinary ED: Denies dysuria or hematuria Musculoskeletal Musculoskeletal: Denies back pain or neck pain Integumentary Denies abscess or rash Neurologic Neurologic: Denies headache(s), paresthesias or weakness Psychiatric Psychiatric: Denies anxiety or suicidal thoughts EXAM Physical Exam Const Vital Signs: 06/05/21 20:00 06/05/21 21:26 06/05/21 21:29 Temperature 97.2 F L Temperature Source Temporal Pulse Rate 77 74 Respiratory Rate 16 18 Blood Pressure 157/91 H 134/74 H Blood Pressure Mean 113 94 Pulse Ox 97 99 Oxygen Delivery Method Room Air Room Air Positive well nourished, well developed and obese General Appearance ED: well developed and NAD Nutritional Appearance: obese HEENT Reports moist mucous membranes normocephalic and atraumatic Eyes PERRL and EOMs intact bilaterally Neck full ROM and supple Resp normal respiratory effort and clear to auscultation bilaterally Cardio regular rate, regular rhythm and no murmurs GI non-tender and non-distended Auscultation: normoactive bowel sounds Palpation: soft Narrative: External exam unremarkable. Patient points to the posterior wall of the vaginal canal at its opening near the vulva to the point of interest. It is nontender and there is no exophytic mass here. Speculum exam unremarkable with unremarkable cervix. Back/Spine General Back: other FROM Extremity normal to inspection General Extremety ED: Negative for edema or pulses abnormal General Extremity: Negative for edema or pulses abnormal Neuro oriented x3, CN's II-XII intact bilaterally and no sensory deficits noted Sensorium / Orientation: awake and alert Motor Exam: strength 5/5 throughout Skin no rashes or lesions noted and no wounds MDM MDM MDM Narrative Medical decision making narrative: The patient does not appear to have a uterine prolapse and the cervix is high in the vaginal canal and the speculum exam is unremarkable. At the patient sitting in bed trying to bear down while we were evaluating her externally and she did not clearly reproduce the bulge, but where she is pointing makes me suspicious this is a rectocele. Will refer her to Dr. Dary Maya for further evaluation. Discharge Plan Triage Chief Complaint: Female C/O ED Provider: Ward Scott Dx/Rx/DC Orders Clinical Impression: Rectocele without uterine prolapse Instructions: Pelvic Organ Prolapse Prescriptions: No Action benzonatate 200 mg capsule 200 mg PO BID PRN (Reason: cough) Qty: 30 RF: 1 guaifenesin 400 mg tablet 400 mg PO TID PRN (Reason: congestion, cough) Qty: 30 RF: 0 albuterol sulfate 90 mcg/actuation HFA aerosol inhaler 1 - 2 puff inhalation Q6H PRN (Reason: shortness of breath or wheezing) Qty: 8.5 RF: 0 norethindrone (contraceptive) [Savita] 0.35 mg tablet 0.35 mg PO QDAY Qty: 84 RF: 4 aripiprazole [Abilify] 5 mg tablet 7.5 mg PO QHS Qty: 90 RF: 3 hydroxyzine HCl 25 mg tablet 25 mg PO BID PRN (Reason: anxiety) Qty: 30 RF: 1 buspirone 10 mg tablet 10 mg PO TID 90 Days Qty: 270 RF: 2 folic acid 1 mg tablet 1 mg PO DAILY Qty: 90 RF: 3 ferrous sulfate 325 mg (65 mg iron) tablet 325 mg PO DAILY Qty: 90 RF: 3 omeprazole 40 mg capsule,delayed release(DR/EC) 40 mg PO DAILY Qty: 90 RF: 3 valacyclovir [Valtrex] 500 mg tablet 500 mg PO BID Qty: 10 RF: 5 meloxicam 15 mg tablet 15 mg PO DAILY PRN (Reason: pain) Qty: 30 RF: 0 azithromycin [Zithromax Z-Haja] 250 mg tablet See Rx Instructions PO .COMPLEX Qty: 6 RF: 0 prednisone 20 mg tablet 40 mg PO DAILY Qty: 10 RF: 0 dextromethorphan HBr 15 mg tablet 30 mg PO Q8H PRN (Reason: cough) Qty: 30 RF: 0 losartan 25 mg tablet 25 mg PO DAILY Qty: 90 RF: 0 bupropion HCl [Wellbutrin SR] 150 mg tablet sustained-release 12 hr 450 mg PO DAILY 90 Days Qty: 270 RF: 1 Primary Care Provider: Princess Baca Referrals: Princess Baca MD [Primary Care Provider] - Amy Hall MD [STAFF PHYSICIAN] - (call for appt) Disposition Disposition: Home, Self Care
== END 2021-06-05 21:51 | disposition home or self-care (01) ==
PROVIDERS: Emergency Provider Emergency Medicine; PCP Internal Medicine; Visit Provider Emergency Medicine
DX: N81.6 Rectocele (principal); Z68.41 Body mass index [BMI] 40.0-44.9, adult; I10 Essential (primary) hypertension; F17.210 Nicotine dependence, cigarettes, uncomplicated; R32 Unspecified urinary incontinence; E66.9 Obesity, unspecified; Z86.16 Personal history of COVID-19; K21.9 Gastro-esophageal reflux disease without esophagitis; M17.0 Bilateral primary osteoarthritis of knee; F32.A Depression, unspecified; F41.9 Anxiety disorder, unspecified; Z79.899 Other long term (current) drug therapy; Z79.52 Long term (current) use of systemic steroids
CPT/HCPCS: 99282

== ENCOUNTER 2021-07-02 14:50 | Outpatient (CLI) | payer MEDICAID, SELFPAY ==
[2021-07-02 16:56] LABS: T4 Free Direct 0.91 ng/dL (0.76-1.46); Thyroid Stim Hormone (TSH) 1.05 uIU/mL (0.358-3.74)
== END 2021-07-02 23:59 | disposition home or self-care (01) ==
LOC: BIMLAB 14:51
PROVIDERS: PCP Internal Medicine; Referring Provider Internal Medicine; Visit Provider Internal Medicine
DX: Z13.29 Encounter for screening for other suspected endocrine disorder (principal)
CPT/HCPCS: 36415; 84439; 84443

== ENCOUNTER → 2022-06-02 | Outpatient (CLI) | payer MEDICAID, SELFPAY ==
[2022-06-02 12:40] LABS: Absolute Lymphocyte Count 1.92 X10^3/uL (0.83-4.51); Absolute Neutrophil Count 3.7 X10^3/uL (2.0-7.7); Basophil# 0.03 X10^3/uL; Basophil% 0.5 % (0-1); Eosinophil# 0.12 X10^3/uL; Eosinophils% 1.9 % (0-5); Hematocrit 45.8 % (37-47); Hemoglobin 15.1 g/dL (12.0-15.0); Lymphocyte # 1.92 X10^3/ul (0.83-4.51); Lymphocyte % 30.4 % (19-41); Mean Corpuscular Hgb 28.5 pg (27.0-32.0); Mean Corpuscular Volume 86.6 fL (81-99); Mean Platelet Vol. 10.9 fl (6.2-12.0); Monocyte# 0.43 X10^3/uL; Monocyte% 6.8 % (0-10); NRBC Flagged by Analyzer 0 % (0-5); Neutrophil # 3.74 X10^3/uL (2.7-7.7); Neutrophil % 59.1 % (47-70); Platelet Count 267 K/mm3 (150-450); RBC Distribution Width CV 12.2 % (11.6-14.6); Red Blood Count 5.29 M/mm3 (4.2-5.4); White Blood Count 6.3 K/mm3 (4.4-11.0)
[2022-06-02 12:56] LABS: AST(SGOT) 11 U/L (15-37); Alanine Aminotransfer ALT/SGPT 25 U/L (13-56); Albumin, Serum 3.7 g/dL (3.2-5.0); Alkaline Phosphatase 109 U/L (45-117); Anion Gap 8 (5-15); BUN 8 mg/dL (7-18); BUN/Creat Ratio 8.1 RATIO (10-20); Calcium,Total 8.8 mg/dL (8.5-10.1); Chloride 104 mmol/L (98-107); Cholesterol 182 mg/dL (200); Creatinine, Serum 0.99 mg/dL (0.55-1.02); EST Glomerular Filtration Rate 65 mL/min (>60); Est Glom Filt Rate - Afr Amer 78 mL/min (>60); Globulin 3.6 g/dL (2.2-4.2); Glucose 104 mg/dL (74-106); High Density Lipoprotein 55 mg/dL; Potassium 3.9 mmol/L (3.5-5.1); Protein, Total 7.3 g/dL (6.4-8.2); Sodium Level 135 mmol/L (136-145); T4 Free Direct 1.09 ng/dL (0.76-1.46); Triglycerides 70 mg/dL; Very Low Density Lipoprotein 14 mg/dL (5-40)
== END | disposition home or self-care (01) ==
LOC: BIMLAB 11:34
PROVIDERS: PCP Internal Medicine; Referring Provider Internal Medicine; Visit Provider Internal Medicine
DX: F41.9 Anxiety disorder, unspecified (principal); F32.9 Major depressive disorder, single episode, unspecified; I10 Essential (primary) hypertension
CPT/HCPCS: 36415; 80053; 80061; 84439; 84443; 85025

== ENCOUNTER 2022-09-29 13:57 | Outpatient (RCR) | payer MEDICAID, SELFPAY | END 2022-10-20 23:59 | LOC: NS 13:57 | PROVIDERS: PCP Internal Medicine; Referring Provider Nurse Practitioner Family; Visit Provider Nurse Practitioner Family | DX: Z71.3 Dietary counseling and surveillance (principal); E66.01 Morbid (severe) obesity due to excess calories; Z68.41 Body mass index [BMI] 40.0-44.9, adult | CPT/HCPCS: 97802 ==

== ENCOUNTER → 2023-01-21 | Outpatient (CLI) | payer MEDICAID, SELFPAY ==
[2023-01-21 15:27] LABS: Absolute Lymphocyte Count 2.08 X10^3/uL (0.83-4.51); Absolute Neutrophil Count 4.3 X10^3/uL (2.0-7.7); Basophil# 0.06 X10^3/uL; Basophil% 0.8 % (0-1); Eosinophil# 0.22 X10^3/uL; Eosinophils% 3.1 % (0-5); Hematocrit 45.2 % (37-47); Hemoglobin 14.5 g/dL (12.0-15.0); Lymphocyte # 2.08 X10^3/ul (0.83-4.51); Lymphocyte % 29.1 % (19-41); Mean Corp Hgb Conc 32.1 g/dL (32-36); Mean Corpuscular Hgb 26.8 pg (27.0-32.0); Mean Corpuscular Volume 83.5 fL (81-99); Mean Platelet Vol. 11.5 fl (6.2-12.0); Monocyte# 0.49 X10^3/uL; Monocyte% 6.9 % (0-10); NRBC Flagged by Analyzer 0 % (0-5); Neutrophil # 4.27 X10^3/uL (2.7-7.7); Neutrophil % 59.8 % (47-70); Platelet Count 296 K/mm3 (150-450); RBC Distribution Width CV 13.4 % (11.6-14.6); RBC Distribution Width SD 40.6 fl (35.1-43.9); Red Blood Count 5.41 M/mm3 (4.2-5.4); White Blood Count 7.1 K/mm3 (4.4-11.0)
[2023-01-21 15:48] LABS: Anion Gap 7 (5-15); BUN 8 mg/dL (7-18); BUN/Creat Ratio 8.5 RATIO (10-20); Chloride 104 mmol/L (98-107); Creatinine, Serum 0.95 mg/dL (0.55-1.02); EST Glomerular Filtration Rate 68 mL/min (>60); Est Glom Filt Rate - Afr Amer 82 mL/min (>60); Glucose 107 mg/dL (74-106); Potassium 3.5 mmol/L (3.5-5.1); Sodium Level 136 mmol/L (136-145)
== END | disposition home or self-care (01) ==
LOC: BIMLAB 13:55
PROVIDERS: PCP Internal Medicine; Visit Provider Internal Medicine
DX: F41.9 Anxiety disorder, unspecified (principal); F32.A Depression, unspecified
CPT/HCPCS: 36415; 80048; 85025

== ENCOUNTER → 2023-08-06 | Outpatient (CLI) | payer MEDICAID, SELFPAY | END | disposition home or self-care (01) | LOC: LABSPEC 15:30 | PROVIDERS: PCP Internal Medicine; Referring Provider Otolaryngology; Visit Provider Otolaryngology | DX: J32.8 Other chronic sinusitis (principal) | CPT/HCPCS: 87070; 87077; 87186; 87205 ==

== ENCOUNTER 2023-11-12 10:06 | Inpatient (IN) | payer MEDICAID, SELFPAY ==
[2023-11-12] VITALS (24 sets, daily range): BP systolic 114–147; BP diastolic 53–117; PULSE 49–86; RESP 13–25; TEMP 35.3–36.3; O2SAT 94–99; BMI 41.7; BMI 41.1
--- NOTE | 2023-11-12 10:27 | EDS_ITS ---
HPI History of Present Illness Chief Complaint: Chest Pain Informant: patient Onset/Context/Timing Onset: Today and Hours Activity at onset: gradual Timing: Intermittent Quality: Positive for Heaviness and Pain Location: Substernal Current Severity: Severe Maximum Severity: Severe Worsened By: Nothing Relieved By: Nothing Associated Symptoms: Positive for Nausea, Diaphoresis and Dyspnea Narrative Narrative: 48-year-old female history of hypertension prior DVT. Since midnight last night she got intermittent midsternal chest pain. It was off and on. And then about half an hour prior to arrival around 9:50 AM. This morning she had some severe midsternal chest pain. Radiating her left arm. Broke out in a sweat. Became nauseated. And short of breath. She has had no history of cardiac disease. She has had no recent exertional dyspnea or exertional chest pain. No prior stress test. No prior heart cath. She does smoke but like 1 to 2 cigarettes a day. Denies drug use. Prior Similar Symptoms: No Recent Illness/Hospitalization: No CVD Risk Factors: Positive for Hypertension and Smoking; Negative for Diabetes PE Risk Factors: Positive for Prior DVT or PE; Negative for Recent Travel/Surgery, Recent Immobilization, Cancer or OCP + Smoking + >/=35 TAD Risk Factors: Negative for Marfan's Syndrome PFSH PFSH Medical History URI (upper respiratory infection) Flu vaccine need Dermatitis Bipolar depression Anxiety and depression Bilateral primary osteoarthritis of knee Knee pain, bilateral Abdominal wall abscess Bronchitis Obesity Sinusitis Screening for thyroid disorder COVID-19 Right elbow pain Swelling of thyroid gland Acute maxillary sinusitis, unspecified Enlarged uterus Osteoarthritis of both knees Sebaceous cyst Hypertension GERD (gastroesophageal reflux disease) Depression Anxiety Alcohol abuse Home Medications ?Medication ?Instructions ?Recorded ?Last Taken ?Type valacyclovir 500 mg tablet 500 mg PO BID #10 tabs 01/03/21 Unknown Rx (Valtrex) albuterol sulfate 90 mcg/actuation 1 - 2 puff inhalation Q6H PRN 03/26/21 Unknown Rx aerosol inhaler shortness of breath or wheezing #8.5 grams folic acid 1 mg tablet 1 mg PO DAILY #90 tabs 10/08/21 Unknown Rx ferrous sulfate 325 mg (65 mg See Rx Instructions .Route 09/05/22 Unknown Rx iron) tablet (FeroSul) .COMPLEX #90 tabs omeprazole 40 mg capsule,delayed 40 mg PO DAILY heartburn #90 caps 12/25/22 Unknown Rx release triamcinolone acetonide 0.1 % 1 applic topical BID #80 grams 01/21/23 Unknown Rx topical ointment buspirone 15 mg tablet See Rx Instructions .Route 04/08/23 Unknown Rx .COMPLEX #90 tabs bupropion HCl 150 mg tablet,12 hr See Rx Instructions .Route 07/10/23 Unknown Rx sustained-release .COMPLEX #270 TABLETS hydroxyzine HCl 25 mg tablet 25 mg PO BID PRN anxiety #30 tabs 07/21/23 Unknown Rx cariprazine 3 mg capsule (Vraylar) 3 mg PO DAILY #30 caps 11/03/23 Unknown Rx losartan 25 mg tablet See Rx Instructions .Route 11/03/23 Unknown Rx .COMPLEX #90 tabs escitalopram oxalate 10 mg tablet 10 mg PO DAILY #30 tabs 11/11/23 Unknown Rx Allergy/AdvReac Type Severity Reaction Status Date / Time cinnamon Allergy Rash Verified 11/12/23 10:12 Family History Grandmother Cancer Grandfather Dementia Other Depression with anxiety Surgical History [place] teeth removed History of History of tubal ligation Social History household members: children housing: house number of children: 4 current occupational status: employed current occupation: [employer] history of recent travel: No sexually active: Yes Smoking Status: Current every day smoker tobacco type: cigarettes Tobacco: How many years used: 15 alcohol intake: former year quit: 2019 details: 8 months sober substance use type: does not use diet: diabetic and low carbohydrate what type of physical activity do you participate in: walking seatbelt use: always do you feel safe at home: Yes additional social history: single ROS ROS ED ROS Narrative Chest pain. Nausea. Shortness of breath. Sweating. Constitutional Constitutional ED: Denies fever(s) Eyes Eyes: Reports none ENT ENT ED: Denies ear pain or rhinorrhea Cardiovascular Cardiovascular: Reports as per HPI and chest pain; Denies palpitations or racing heartbeat Respiratory/Chest Respiratory/Chest: Reports dyspnea Gastrointestinal Gastrointestinal: Reports nausea; Denies abdominal pain, constipation, diarrhea, melena or vomiting Genitourinary Genitourinary ED: Denies dysuria or hematuria Musculoskeletal Musculoskeletal: Denies arthralgias or back pain Integumentary Denies abscess Neurologic Neurologic: Denies headache(s) Psychiatric Psychiatric: Denies anxiety Endocrine Endocrinology: Denies cold intolerance Hematologic/Lymphatic Hematologic/Lymphatic: Denies easy bleeding, easy bruising or lymphadenopathy Allergic/Immunologic Allergic/Immunologic ED: Denies mouth swelling, tongue swelling or urticaria EXAM Physical Exam Narrative Exam Narrative: 48-year-old female sitting upright in bed. Heart rates in the 50s. But she has a stable blood pressure. Pulse ox 9 9% on room air no signs of hypoxia. H EENT exam unremarkable. She is diaphoretic. Moist mucous membranes. Neck nontender no JVD. Lungs clear to auscultation bilaterally. Heart bradycardic rate in the 50s no murmur. Chest wall and ribs nontender. Abdomen soft nontender. Moving all 4 extremities. Radial pulses are equal and symmetrical. Calves are nontender without edema. She is awake and alert. Answering questions and following commands. No focal motor deficits. Const Vital Signs: 11/12/23 10:06 11/12/23 10:14 11/12/23 10:26 Temperature 95.5 F L Temperature Source Oral Pulse Rate 60 Respiratory Rate 22 H 22 H Respiratory Effort Short of Breath Blood Pressure 119/71 119/71 Blood Pressure Mean 87 Pulse Ox 99 Oxygen Delivery Method Room Air Positive well nourished and well developed; Negative for cachectic, contractures or unkempt General Appearance ED: well developed; Negative for unkempt, cachectic, contractures, NAD or pallor Nutritional Appearance: Negative for cachectic HEENT Reports moist mucous membranes; Denies dry mucous membranes normocephalic and atraumatic; Negative for trauma or tenderness Mouth ED: No dry mucous membranes Mouth: No dry mucous membranes Eyes PERRL and EOMs intact bilaterally General Eye ED: Negative for pale conjunctiva or scleral icterus Neck no lymphadenopathy, supple and no JVD General: Negative for tenderness Chest Wall inspection of chest normal and palpation of chest normal Chest: Negative for tenderness Resp normal respiratory effort and clear to auscultation bilaterally Effort and Inspection: Negative for respiratory distress Auscultation: Negative for rales, rhonchi, wheezes or diminished lung sounds Cardio regular rhythm, S1 normal heart sound, S2 normal heart sound and no murmurs; Negative for regular rate Rate: bradycardia; Negative for tachycardic Peripheral Pulses: pulses 2+ throughout GI normal to inspection, nondistended, normoactive bowel sounds, soft to palpation, non-tender, non-distended and no masses Back/Spine no CVA tenderness and no thoracic nor lumbar tenderness General Back: Negative for CVA tenderness Cervical Spine: Negative for cervical spine tenderness Extremity normal to inspection General Extremety ED: Negative for edema, pulses abnormal or tenderness General Extremity: Negative for edema or pulses abnormal Neuro oriented x3 and CN's II-XII intact bilaterally Sensorium / Orientation: awake, alert, oriented to person, oriented to place and oriented to time; Negative for confused, lethargic or stuporous Motor Exam: strength 5/5 throughout Psych mental status grossly normal Appearance: Negative for unkempt Attitude: No agitated Mood & Affect: Negative for depressed, anxious or tearful Skin no rashes or lesions noted and no wounds General Skin Exam: Negative for jaundice or pallor Rashes: No rashes noted Trauma: Negative for abrasion, laceration or puncture Heart Score History: Highly Suspicious ECG: Significant ST-Depression Age: >45 - <65 years Risk Factors: 1 or 2 Risk Factors Score: 6 MDM MDM MDM Narrative Medical decision making narrative: 48-year-old female with stuttering chest pain since midnight got worse about 950 this morning. Radiating to her left arm she is diaphoretic and short of breath and nauseated. EKG is very concerning for an anterior lateral CA with ST elevation and depression in 3 and aVF. STEMI team was called. She had already received aspirin per squad. She is being given 180 of Brilinta p.o. and a heparin bolus. I have already spoken to bench precision assembler he is down in the ER evaluate the patient and she is being taken to [facility] an acute [facility]. I spoke to the patient about this is comfortable with the plan and her significant other outside the room. History & Record Review Discussion w/independent historian: Patient Additional record(s) reviewed:: Prior inpatient record, Prior outpatient record, Prior ED visit and Prior labs Lab Data Attestation: I reviewed the patient's lab results. Lab results narrative: CBC normal white count 9. H&H 11 and 38. Platelets 412. Chemistries unremarkable gap 7. Normal BUN and creatinine. Glucose 116. Initial troponin 421. Labs: Laboratory Results - last 24 hr 11/12/23 09:57 WBC 9.1 RBC 5.14 Hgb 11.5 L Hct 38.4 MCV 74.7 L MCH 22.4 L MCHC 29.9 L RDW Std Deviation 43.1 RDW Coeff of Janey 16.3 H Plt Count 412 MPV 10.9 Immature Gran % (Auto) 0.700 Neut % (Auto) 64.1 Lymph % (Auto) 25.5 [place] % (Auto) 6.9 Eos % (Auto) 2.3 Baso % (Auto) 0.5 Absolute Neuts (auto) 5.9 Absolute Lymphs (auto) 2.33 Nucleated RBC % 0 Sodium 137 Potassium 3.5 Chloride 103 Carbon Dioxide 27.0 Anion Gap 7 BUN 7 Creatinine 0.80 Estim Creat Clear Calc 114.44 Est GFR (MDRD) Af Amer 99 Est GFR (MDRD) Non-Af 82 BUN/Creatinine Ratio 8.7 L Glucose 116 H Calcium 9.2 Troponin I High Sens 421 H* Radiography Diagnostic Testing: Chest x-ray not performed due to the patient taken directly to the [facility]. Rhythm Strip Rhythm Strip: Sinus Rhythm Rate: 53 Ectopy: None EKG Initial EKG: Attestation: I personally reviewed and interpreted this EKG as follows: Interpretation: Sinus Rhythm Comments: Sinus bradycardia rate of 53. ST elevation in leads V1 through VEEG 4. There is significant ST depression in 3 and aVF consistent with anterior lateral CA. Change from prior. Prior EKG tracings: available for review Prior: Changed Critical Care Time Critical Care Time: Yes Critical care time (excluding procedures): Including time spent:, Discussing w/Patient &/or Family/Patient Educator, Discussing w/Consultants, Arranging Admission or Transfer, Performing Direct Patient Care at Bedside and - (15 minutes) Discharge Plan Dx/Rx/DC Orders Clinical Impression: Acute chest pain, Acute myocardial infarction, History of hypertension Disposition Disposition: [facility]
--- NOTE | 2023-11-12 10:37 | PCM.HP.STD ---
[facility] - General General Date of Admission: 11/12/23 Date of Service: 11/12/23 Chief Complaint: Chest pain HPI Narrative MIGUEL KELLY, is a 48 F who presents with chest pain. Patient symptoms started a day prior to her admission. Per patient she was in her usual state of health till the evening prior to her presentation when she developed chest discomfort. Pain was described as a burning sensation across her chest. She initially thought she was having acid reflux however pain persisted throughout the whole evening. On the morning of her presentation pain became more intense. Per patient she did develop shortness of breath as well as lightheadedness and broke out into a cold sweat. She finally called the EMS squad and was brought to the emergency department. Her assessment on admission was consistent with EKG done in the emergency room revealed lateral ST elevation with inferior ST depressions suggestive of ST elevation IN' patient underwent emergency left heart catheterization without intervention to LAD lesion PFS Medical History URI (upper respiratory infection) Flu vaccine need Dermatitis Bipolar depression Anxiety and depression Bilateral primary osteoarthritis of knee Knee pain, bilateral Abdominal wall abscess Bronchitis Obesity Sinusitis Screening for thyroid disorder COVID-19 Right elbow pain Swelling of thyroid gland Acute maxillary sinusitis, unspecified Enlarged uterus Osteoarthritis of both knees Sebaceous cyst Hypertension GERD (gastroesophageal reflux disease) Depression Anxiety Alcohol abuse Home Medications ?Medication ?Instructions ?Recorded ?Last Taken ?Type albuterol sulfate 90 mcg/actuation 1 - 2 puff inhalation Q6H PRN 03/26/21 Unknown Rx aerosol inhaler shortness of breath or wheezing #8.5 grams folic acid 1 mg tablet 1 mg PO DAILY #90 tabs 10/08/21 Unknown Rx ferrous sulfate 325 mg (65 mg See Rx Instructions .Route 09/05/22 Unknown Rx iron) tablet (FeroSul) .COMPLEX #90 tabs omeprazole 40 mg capsule,delayed 40 mg PO DAILY heartburn #90 caps 12/25/22 Unknown Rx release buspirone 15 mg tablet See Rx Instructions .Route 04/08/23 Unknown Rx .COMPLEX #90 tabs bupropion HCl 150 mg tablet,12 hr See Rx Instructions .Route 07/10/23 Unknown Rx sustained-release .COMPLEX #270 TABLETS hydroxyzine HCl 25 mg tablet 25 mg PO BID PRN anxiety #30 tabs 07/21/23 Unknown Rx cariprazine 3 mg capsule (Vraylar) 3 mg PO DAILY #30 caps 11/03/23 Unknown Rx losartan 25 mg tablet See Rx Instructions .Route 11/03/23 Unknown Rx .COMPLEX #90 tabs escitalopram oxalate 10 mg tablet 10 mg PO DAILY depression #30 tabs 11/11/23 Unknown Rx amoxicillin 875 mg-potassium 1 tab PO BID pna 11/12/23 Unknown History clavulanate 125 mg tablet Allergy/AdvReac Type Severity Reaction Status Date / Time cinnamon Allergy Rash Verified 11/12/23 10:12 Family History Grandmother Cancer Grandfather Dementia Other Depression with anxiety Surgical History Reliance teeth removed History of History of tubal ligation Social History household members: children housing: house number of children: 4 current occupational status: employed current occupation: [employer] history of recent travel: No sexually active: Yes Smoking Status: Current every day smoker tobacco type: cigarettes Tobacco: How many years used: 15 alcohol intake: former year quit: 2019 details: 8 months sober substance use type: does not use diet: diabetic and low carbohydrate what type of physical activity do you participate in: walking seatbelt use: always do you feel safe at home: Yes additional social history: single ROS ROS Narrative GENERAL: denies fever, chills, night sweats, weight loss, anorexia HEENT: denies headache, sinus congestion, or drainage, dysphagia RESPIRATORY: Shortness of breath CARDIAC: Chest pain GASTROINTESTINAL: denies abdominal pain, nausea, vomiting, melena, GENITOURINARY: denies dysuria, urgency, frequency, heamaturia EXTREMITY: denies swelling MUSCULOSKELETAL: denies current joint pain or tenderness NEUROLOGIC: denies focal numbness, weakness, tingling HEMATOLOGIC: denies easy bruising and/or hemorrhage INTEGUMENT: denies rashes PSYCHIATRIC: denies suicidal or homicidal ideation Vital Signs Vital Signs Vital Signs: 11/12/23 10:06 11/12/23 10:14 11/12/23 10:26 Temperature 95.5 F L Temperature Source Oral Pulse Rate 60 Respiratory Rate 22 H 22 H Respiratory Effort Short of Breath Blood Pressure 119/71 119/71 Blood Pressure Mean 87 Pulse Ox 99 Oxygen Delivery Method Room Air Weight Weight: 117.3 kg Body Mass Index (BMI) 41.7 Physical Exam Narrative GENERAL: cooperative HEENT: Atraumatic; normocephalic EYES; Anicteric, Normal Conjunctiva NECK; supple, normal thyroid, RESPIRATORY: Diminished to auscultation CARDIOVASCULAR: Regular S1 S2, GI: soft, normoactive bowel sounds, : No Renal angle tenderness; EXTREMITIES: No edema, no clubbing, MUSCULOSKELETAL: no muscle wasting NEURO: Awake; no lateralizing signs. SKIN: No Rash PSYCH; Flat affect Results Lab / Micro Data 11/12/23 09:57 11/12/23 09:57 Rhythm Strip Rhythm Strip: Sinus Rhythm Rate: 53 Ectopy: None Assessment & Plan Assessment/Plan (1) Acute myocardial infarction: PLAN: Plan Patient is a 48-year-old lady presented with chest pain diagnosed with acute STEMI 1. Acute STEMI ? EKG on admission demonstrated EKG done in the emergency room revealed lateral ST elevation with inferior ST depressions suggestive of ST elevation [place]. Patient underwent emergency left heart catheterization which revealed 90% stenosis in the proximal LAD lesion. Patient underwent intervention with IKE. Subsequently admitted to the intensive care unit guideline directed medical therapy initiated 2. Hypertension ? Blood pressure controlled, home medications continued with dose adjustment as needed 3. GERD ? On PPI 4. Class III obesity with BMI of 42 ? Complicating care weight loss advised 5. Recent treatment for acute bronchitis patient is on amoxicillin plan is to complete therapy 6. Depression with anxiety ? Patient is on escitalopram as well as bupropion continue 7. Tobacco dependence ? Counseled on cessation, offered nicotine patch for tobacco cravings 8. DVT prophylaxis ? On enoxaparin Time spent in the patient's overall evaluation,decision-making process, review of diagnostic data, adjustment of management, discussion with other providers, nursing nursing and ancillary staff involved in patient's care documentation, 78 minutes minutes Advance planning; did discuss with the patient and family regarding advanced directives as well as CODE STATUS. Did explain the various scenarios involved ( FULL CODE, DNR CCA, DNR CCA with no intubation, and DNR CC and what each meant) patient elected to remain full code with CPR and intubation if needed. Order was placed. Time spent on discussion 18 minutes. Charges/Coding Multi Select Codes Visit Charges Visit Charges: 77924 Init Hosp Hospitalists' Procedures Procedures: 46236 Advncd Care Plan 30 Min
[2023-11-12 10:40] LABS: Absolute Lymphocyte Count 2.33 X10^3/uL (0.83-4.51); Absolute Neutrophil Count 5.9 X10^3/uL (2.0-7.7); Basophil# 0.05 X10^3/uL; Basophil% 0.5 % (0-1); Eosinophil# 0.21 X10^3/uL; Eosinophils% 2.3 % (0-5); Hematocrit 38.4 % (37-47); Hemoglobin 11.5 g/dL (12.0-15.0); Lymphocyte # 2.33 X10^3/ul (0.83-4.51); Lymphocyte % 25.5 % (19-41); Mean Corp Hgb Conc 29.9 g/dL (32-36); Mean Corpuscular Hgb 22.4 pg (27.0-32.0); Mean Corpuscular Volume 74.7 fL (81-99); Mean Platelet Vol. 10.9 fl (6.2-12.0); Monocyte# 0.63 X10^3/uL; Monocyte% 6.9 % (0-10); NRBC Flagged by Analyzer 0 % (0-5); Neutrophil # 5.86 X10^3/uL (2.7-7.7); Neutrophil % 64.1 % (47-70); Platelet Count 412 K/mm3 (150-450); RBC Distribution Width CV 16.3 % (11.6-14.6); RBC Distribution Width SD 43.1 fl (35.1-43.9); Red Blood Count 5.14 M/mm3 (4.2-5.4); White Blood Count 9.1 K/mm3 (4.4-11.0)
--- NOTE | 2023-11-12 10:41 | ED.RN ---
UNABLE TO OBTAIN ANOTHER SET OF VS PRIOR TO GOING TO [facility] [facility].
[2023-11-12 11:05] LABS: Anion Gap 7 (5-15); BUN 7 mg/dL (7-18); BUN/Creat Ratio 8.7 RATIO (10-20); Calcium,Total 9.2 mg/dL (8.5-10.1); Chloride 103 mmol/L (98-107); EST Glomerular Filtration Rate 82 mL/min (>60); Est Glom Filt Rate - Afr Amer 99 mL/min (>60); Estimated Creatinine Clearance 114.44 ml/min; Glucose 116 mg/dL (74-106); Potassium 3.5 mmol/L (3.5-5.1); Sodium Level 137 mmol/L (136-145); Troponin-I HS (w/2H Reflex) 421 pg/mL (3.0-54.0)
--- NOTE | 2023-11-12 11:08 | CON.PCM.CA_ITS ---
Assessment & Plan Assessment/Plan (1) Acute myocardial infarction: QUALIFIERS: Myocardial infarction type: ST elevation myocardial infarction Involved coronary artery: LAD coronary artery Qualified Code(s): I 21.02 - ST elevation (STEMI) myocardial infarction involving left anterior descending coronary artery PLAN: Treated with drug-eluting stent to the proximal LAD. Will keep the patient on aspirin, Brilinta, statin, beta-zahra. She was already on losartan which we will continue. Will check a 2D echo to evaluate her LV function. HPI Consult Data Date of Consult: 11/12/23 HPI Narrative Reason for Consultation: STEMI HPI Narrative: MIGUEL KELLY, is a 48 F who presents with chest pain. Chest pain started around 12 AM this morning. It had been on and off since then and about half an hour prior to presentation chest pain became constant and more severe. EKG done in the emergency room revealed lateral ST elevation with inferior ST depressions suggestive of ST elevation [place]. Patient was evaluated in the ER and brought emergently to the [facility] where she underwent coronary angiography which revealed 90% stenosis in the proximal LAD that was treated with drug-eluting stent placement. Patient is chest pain-free at the end of the procedure. She is being admitted to the CCU for further management of her STEMI. Review of systems: All systems reviewed. All else is negative except that in HPI PFSH Medical History URI (upper respiratory infection) Flu vaccine need Dermatitis Bipolar depression Anxiety and depression Bilateral primary osteoarthritis of knee Knee pain, bilateral Abdominal wall abscess Bronchitis Obesity Sinusitis Screening for thyroid disorder COVID-19 Right elbow pain Swelling of thyroid gland Acute maxillary sinusitis, unspecified Enlarged uterus Osteoarthritis of both knees Sebaceous cyst Hypertension GERD (gastroesophageal reflux disease) Depression Anxiety Alcohol abuse Home Medications ?Medication ?Instructions ?Recorded ?Last Taken ?Type valacyclovir 500 mg tablet 500 mg PO BID #10 tabs 01/03/21 Unknown Rx (Valtrex) albuterol sulfate 90 mcg/actuation 1 - 2 puff inhalation Q6H PRN 03/26/21 Unknown Rx aerosol inhaler shortness of breath or wheezing #8.5 grams folic acid 1 mg tablet 1 mg PO DAILY #90 tabs 10/08/21 Unknown Rx ferrous sulfate 325 mg (65 mg See Rx Instructions .Route 09/05/22 Unknown Rx iron) tablet (FeroSul) .COMPLEX #90 tabs omeprazole 40 mg capsule,delayed 40 mg PO DAILY heartburn #90 caps 12/25/22 Unknown Rx release triamcinolone acetonide 0.1 % 1 applic topical BID #80 grams 01/21/23 Unknown Rx topical ointment buspirone 15 mg tablet See Rx Instructions .Route 04/08/23 Unknown Rx .COMPLEX #90 tabs bupropion HCl 150 mg tablet,12 hr See Rx Instructions .Route 07/10/23 Unknown Rx sustained-release .COMPLEX #270 TABLETS hydroxyzine HCl 25 mg tablet 25 mg PO BID PRN anxiety #30 tabs 07/21/23 Unknown Rx cariprazine 3 mg capsule (Vraylar) 3 mg PO DAILY #30 caps 11/03/23 Unknown Rx losartan 25 mg tablet See Rx Instructions .Route 11/03/23 Unknown Rx .COMPLEX #90 tabs escitalopram oxalate 10 mg tablet 10 mg PO DAILY #30 tabs 11/11/23 Unknown Rx Allergy/AdvReac Type Severity Reaction Status Date / Time cinnamon Allergy Rash Verified 11/12/23 10:12 Family History Grandmother Cancer Grandfather Dementia Other Depression with anxiety Surgical History Kenna teeth removed History of History of tubal ligation Social History household members: children housing: house number of children: 4 current occupational status: employed current occupation: [employer] history of recent travel: No sexually active: Yes Smoking Status: Current every day smoker tobacco type: cigarettes Tobacco: How many years used: 15 alcohol intake: former year quit: 2019 details: 8 months sober substance use type: does not use diet: diabetic and low carbohydrate what type of physical activity do you participate in: walking seatbelt use: always do you feel safe at home: Yes additional social history: single Physical Exam Const alert HEENT normocephalic Resp normal respiratory effort Cardio regular rate Skin no rashes or lesions noted Psych mental status grossly normal Risk Stratification Risk Stratification Applicable: No Charges/Coding Visit Charges Inpatient E&M: 18699 Init Hosp L2 Objective Data Vital Signs: Vital Signs Temp Pulse Resp BP Pulse Ox O2 Del Method 95.5 F L 60 22 H 119/71 99 Room Air 11/12/23 10:06 11/12/23 10:06 11/12/23 10:26 11/12/23 10:26 11/12/23 10:06 11/12/23 10:06 Oxygen Delivery Method Room Air Weight: 258 lb 9.636 oz Body Mass Index (BMI) 41.7 Intake & Output: Intake and Output for Last 24 Hours 11/10/23 11/11/23 11/12/23 23:59 23:59 23:59 Intake Total 0 / 0 Balance 0 / 0 Lab / Micro Data 11/12/23 09:57 11/12/23 09:57 Labs: Laboratory Results - last 24 hr 11/12/23 09:57: WBC 9.1, RBC 5.14, Hgb 11.5 L, Hct 38.4, MCV 74.7 L, MCH 22.4 L, MCHC 29.9 L, RDW Std Deviation 43.1, RDW Coeff of Janey 16.3 H, Plt Count 412, MPV 10.9, Immature Gran % (Auto) 0.700, Neut % (Auto) 64.1, Lymph % (Auto) 25.5, [place] % (Auto) 6.9, Eos % (Auto) 2.3, Baso % (Auto) 0.5, Absolute Neuts (auto) 5.9, Absolute Lymphs (auto) 2.33, Nucleated RBC % 0, Sodium 137, Potassium 3.5, Chloride 103, Carbon Dioxide 27.0, Anion Gap 7, BUN 7, Creatinine 0.80, Estim Creat Clear Calc 114.44, Est GFR (MDRD) Af Amer 99, Est GFR (MDRD) Non-Af 82, B UN/Creatinine Ratio 8.7 L, Glucose 116 H, Calcium 9.2, Troponin I High Sens 421 H* Rhythm Strip Rhythm Strip: Sinus Rhythm Rate: 53 Ectopy: None Cardiology Labs/Tests 11/12/23 09:57: WBC 9.1, RBC 5.14, Hgb 11.5 L, Hct 38.4, MCV 74.7 L, MCH 22.4 L, MCHC 29.9 L, Plt Count 412, MPV 10.9, Immature Gran % (Auto) 0.700, Neut % (Auto) 64.1, Lymph % (Auto) 25.5, [place] % (Auto) 6.9, Eos % (Auto) 2.3, Baso % (Auto) 0.5, Absolute Neuts (auto) 5.9, Nucleated RBC % 0, Sodium 137, Potassium 3.5, Chloride 103, Carbon Dioxide 27.0, Anion Gap 7, BUN 7, Creatinine 0.80, Est GFR (MDRD) Af Amer 99, Est GFR (MDRD) Non-Af 82, BUN/Creatinine Ratio 8.7 L, G lucose 116 H, Calcium 9.2 Rhythm: EKG: ECHO: Stress Test: Cardiac Cath: PCI: CT Surgery: Holter monitor: EPS: PPM: CXR: Chest CT Scan:
--- NOTE | 2023-11-12 11:15 | EKG12_ITS ---
Test Reason : post stemi Blood Pressure : / mmHG Vent. Rate : 061 BPM Atrial Rate : 061 BPM P-R Int : 188 ms QRS Dur : 088 ms QT Int : 488 ms P-R-T Axes : 072 070 073 degrees QTc Int : 491 ms Normal sinus rhythm Prolonged QT Abnormal ECG When compared with ECG of 12-NOV-2023 10:10, MANUAL COMPARISON REQUIRED, DATA IS UNCONFIRMED Confirmed by Omero Martinez ([id number]), social media editor KERRY FRIAS ([id number]) on 11/16/2023 1:58:24 PM Referred By: Soledad Confirmed By:Omero Martinez
--- NOTE | 2023-11-12 11:17 | QUALITY_ITS ---
STEMI STEMI ED Door Time / Other REG STEMI EKG Time (1) ST elevation (STEMI) myocardial infarction involving left anterior de scending coronary artery: Acute 11/12/23 10:06 Balloon/Aspiration Date-Time Date of Balloon/Aspiration:: 11/12/23 Time of Balloon/Aspiration:: 10:45
[2023-11-12] MEDS: 0.9% Normal Saline (1000mL) 1,000 ML 75 ML IV (11:32)
--- NOTE | 2023-11-12 11:32 | CHAPLAIN ---
Type of Pastoral Visit ___ Initial Visit ___ Follow-up Visit ___ On-call Visit ___ General Patient Visit ___ Spiritual Assessment ___ Family Conference ___ Bereavement _x__ Rapid Response ___ Code Blue ___ Other (describe below) Pastoral Care Referral From ___ Patient ___ Family ___ Nurse ___ Physician ___ Freight Loading Supervisor ___ Invasive Cardiovascular Technologist _x__ Other (describe below) Sacrament/Intervention ___ Active listening ___ Anointing ___ Islam ___ Bereavement ___ Communion ___ Deanna exploration ___ ___ Life review ___ Prayer ___ Reconciliation ___ Sacrament of Sick _x__ Supportive presence ___ Wedding ___ Other (describe below) Pastoral Comments upon arriving at work discovered a stemi alert for this patient; went to ED and then to [facility] to offer support; found SO in [facility] waiting area and asked SO if needed anything and offered support; SO denied needs or concerns; did not engage in conversation or respond to any requests; SO just shook his head several times when questions were asked and he kept looking at his phone
--- NOTE | 2023-11-12 12:26 | CRPHASE1_ITS ---
Patient Communication Patient Information PHII Cardiac Rehab Discussed with Patient:: Yes Guide to Cardiac Rehab Given to Patient:: Yes Cardiac Rehab Facility Choice List Given to Patient:: Yes Communication to Cardiac Rehab Choice Program [facility] CR PHII:: Communication Given to CR Electrical Timing Device Calibrator:: Izzy Rowe Phase II Cardiac Rehab:: Yes Sessions:: 36 sessions - 3 days/wk, 12 weeks Cardiac Rehabilitation Info Program Information Cardiac Rehabilitation Program Information: Cardiac Rehab The cardiac rehab team at [facility] consists of highly skilled exercise physiologists, nurses, respiratory therapists and physicians working together with you. Our purpose is to help you have a full recovery and achieve the goals you set for yourself. Over the years many of our patients have returned to activities they assumed they would never do again! We can help restore your confidence and motivation to make lifestyle changes that can have a significant impact on your health and quality of life! We can help answer questions and concerns you may have about exercise, lifestyle, medications, diet, stress and anxiety which are common following a hospitalization. WE monitor ECG and vital signs during exercise and discuss your progress with you and report to your physician(s). Cardiac Rehab is proven to help reduce readmissions, improve functional capacity and lower recurrence of problems with your heart. Our Cardiac Rehab program is Certified by the [place] [employer] Pulmonary [employer] (AACVPR) and Accredited by the [place] [employer] through our [facility]. You can contact us at . We invite you to call us with your questions or to get started in our program. If you have other questions or concerns be sure to ask your physician/provider during your follow-up visit. WE look forward to seeing you!
--- NOTE | 2023-11-12 12:26 | CRPH1.INSTRU ---
General Education Discussed with Patient CAD and cardiac anatomy and function:: Patient communicates acknowledgment Explanation of diagnoses and procedures:: Patient communicates acknowledgment Sign/Symptoms of TN:: Patient communicates acknowledgment Antiplatelet therapy: Patient communicates acknowledgment Proper use of NTG-SL: Patient communicates acknowledgment Emergency procedures and activation of EMS: Patient communicates acknowledgment Compliance of all prescribed medications: Patient communicates acknowledgment Smoking Risk Factors Patient Nicotine/Smoking Risk Factors Are:: Cigarettes Recommendations Recommendations Include:: Smoking cessation strategies/Smoking packet Response Code Nicotine/Smoking Response Code:: Patient communicates acknowledgment Dyslipidemia Risk Factors Patient Dyslipidemia Risk Factors Are:: Total Cholesterol, Triglycerides, HDL and LDL Recommendations Recommendations Include:: Lipid profile not available Response Code Dyslipidemia Response Code:: Patient communicates acknowledgment Overweight/Obesity Risk Factors Patient Overweight/Obesity Risk Factors Are:: Obesity - > or = 30 Recommendations Recommendations Include:: Weight loss of 5-10%, Reduced calorie diet and Exercise 5-7 times/week Response Code Overweight/Obesity:: Patient communicates acknowledgment Hypertension Recommendations Recommendations Include:: Maintain BP <130/85, DASH dietary guidelines, Decrease/maintain normal body weight and Moderation of ETOH Response Code Hypertension:: Patient communicates acknowledgment Metabolic Syndrome Risk Factors Patient Metabolic Syndrome Risk Factors Are [3 of 5]:: Fasting blood sugar > 100 mg/dL, Waist circumference > 35 [female] or 40 [male], High triglyceride >150, Hypertension and Low HDL <40 [male] or < 50 [female] Recommendations Recommendations Include:: Reinforce compliance to risk factor modifications, Patient is diabetic and Encouraged follow-up with Primary Care Physician Response Code Metabolic Syndrome Response Code:: Patient communicates acknowledgment Sedentary Risk Factors Patient Sedentary Risk Factors Are:: Lack of regular exercise Recommendations Recommendations Include:: Aerobic exercise 5-7 times/week for 20-30 minutes continuously, Benefits of regular exercise, Discussed home walking program and Monitored Outpatient Cardiac Rehab Response Code Sedentary Response Code:: Patient communicates acknowledgment
[2023-11-12 12:35] LABS: Reflex Troponin-HS? (from REC) Y
[2023-11-12] MEDS: Carvedilol 3.125 MG TABLET PO ×2 (13:11→20:49)
--- NOTE | 2023-11-12 15:10 | ECHOCS_ITS ---
Reason For Study: STEMI Procedure This was a 2D Doppler, Color Flow transthoracic echocardiogram. Exam performed portable in ICU/CCU. Left Ventricle Normal LV size. The estimated ejection fraction is 65 %. No evidence for diastolic dysfunction. No regional wall motion abnormalities noted. Right Ventricle Normal RV size. Normal systolic function. Atria The left and right atria are normal. No doppler evidence for ASD. Mitral Valve There is no mitral valve stenosis. No mitral valve insufficiency. Tricuspid Valve There is no tricuspid stenosis. Unable to estimate RV systolic pressure due to inadequate jet, pulmonary artery pressure probably normal. Aortic Valve Trisinus/trileaflet aortic valve. There is no aortic stenosis. No aortic valve insufficiency. Pulmonic Valve There is no pulmonic valvular stenosis. No pulmonic valve insufficiency. Great Vessels Normal aortic root. Pericardium/Pleural No pericardial effusion. MMode/2D Measurements & Calculations LVIDd: 4.8 cm IVSd: 0.99 cm Ao root diam: 2.8 cm LVIDs: 3.6 cm LVPWd: 1.4 cm FS: 24.0 % LAV(MOD-sp4): 71.7 ml LVAd ap4: 41.9 cm2 SV(MOD-sp4): 95.1 ml LVLd ap4: 8.9 cm EDV(MOD-sp4): 156.2 ml EDV(sp4-el): 166.7 ml LVAs ap4: 24.6 cm2 LVLs ap4: 7.8 cm ESV(MOD-sp4): 61.0 ml ESV(sp4-el): 65.5 ml EF(MOD-sp4): 60.9 % EF(sp4-el): 60.7 % SV(sp4-el): 101.2 ml LA A4 area: 21.7 cm2 LA dimension(2D): 3.8 cm RA A4 area: 12.1 cm2 Time Measurements MV dec time: 0.21 sec Doppler Measurements & Calculations MV E max jose: 99.9 cm/sec Lat Peak E' Jose: 13.9 cm/sec Med Peak E' Jose: 10.4 cm/sec MV A max jose: 69.0 cm/sec E/E' lat: 7.2 E/E' med: 9.6 MV E/A: 1.4 MV V2 max: 126.9 cm/sec Ao V2 max: 148.3 cm/sec MV max P.5 mmHg MV dec slope: 475.8 cm/sec2 Ao max P.8 mmHg MV V2 mean: 66.4 cm/sec Ao V2 mean: 103.0 cm/sec MV mean P.1 mmHg Ao mean P.9 mmHg MV V2 VTI: 36.5 cm Ao V2 VTI: 35.3 cm AV (velocity ratio): 0.84 LV V1 max: 143.5 cm/sec PA V2 max: 131.7 cm/sec LV V1 max P.2 mmHg PA V2 mean: 93.5 cm/sec LV V1 mean P.7 mmHg LV V1 mean: 87.4 cm/sec LV V1 VTI: 29.6 cm ECHO/Echo Complete W/ Contrast Interpretation Summary The estimated ejection fraction is 65 %. No evidence for diastolic dysfunction. Ordering Physician: Paras Guerrero Referring Physician: Princess Baca Performed By: Rubi Montano RCS
--- NOTE | 2023-11-12 16:32 | CL.I_ITS ---
Patient Name: MIGUEL KELLY Study Date: 11/12/2023 Performing: Hola Rowe MD Ht: 66 inches 167.64 cm : 1975 Wt: 258.9 lbs 117.3 kg Age: 48 Gender: female BSA: 2.23 PROCEDURE(S) PERFORMED IC16-(24035/[id number])AMI, IKE OR PTCA, ARTERY/GRAFT, SINGLE VESSEL DC02-([id number])LHC/COR CLINICAL PROFILE AND CO-MORBIDITIES Indications: ACS <= 24 hrs, STEMI Heart Failure: None CONCLUSIONS Single-vessel CAD as described. Successful IKE to proximal LAD RECOMMENDATIONS DESCRIPTION OF PROCEDURE The patient arrived to the procedure lab. The risks and benefits of the procedure as well as a full description of our services here and lack of surgical backup were fully explained to the patient and/or their significant other prior to the catheterization. The Timeout was completed, verifying the correct patient and procedure. The patient's procedural site was prepped and draped in the usual fashion. Local anesthetic was given subcutaneously to right radial region with Lidocaine 2%. Using a modified Seldinger technique, arterial access was obtained via the right radial artery, a 6Fr sheath was inserted.. Right Coronary Artery selective angiography was then performed in multiple views using a 5 Fr. JR 4 catheter XB 3 Guide catheter was inserted and engaged into the LCA. BMW Guide wire was advanced to the LAD. EMERGE 3.0 X 15 Balloon catheter was inserted. Balloon catheter was advanced across lesion in the LAD, proximal. PTCA balloon inflated at 6 atms for 8 secs. PTCA balloon inflated at 10 atms for 15 secs. Angiogram performed post balloon dilatation. CASSIE FRONITER 4.5 X 18 Drug Eluting stent was inserted. Drug Eluting stent was advanced across the lesion in the LAD, proximal. Angiogram performed pre stent deployment. Angiogram performed post stent deployment. The arterial sheath was pulled and a TR Band was applied for hemostasis 10 ml of air CORONARY ANGIOGRAPHY DOMINANCE: Right Dominant LEFT MAIN: Mild luminal irregularities LEFT ANTERIOR DESCENDING ARTERY: PROX LAD: 90 % Stenosis CIRCUMFLEX ARTERY: Mild luminal irregularities RIGHT CORONARY ARTERY: Mild luminal irregularities INTERVENTION INFORMATION LESION SITE: LAD (Proximal) Lesion Complexity: High/C, chronic total occlusion: No, lesion at bifurcation: No, thrombus present: Yes, lesion length: 16 mm, culprit lesion: Yes, Previously treated lesion: No Pre Stenosis: 90 % Pre intervention TIANNA flow: 3 PROCEDURE: Drug Eluting Stent with pre dilatation. Post Stenosis: 0 % Post intervention TIANNA flow: 3 Lesion Devices: Cordis 6 Fr XB3.0 100cm Guide Catheter Gastelum .014 190cm BMW Rowe Straight Alex Sci EMERGE MR 3.00x15 BALLOON Medtronic 4.5 x 18 CASSIE FRONTIER IKE COMPLICATIONS No Complications PROCEDURE MEDICATIONS Oxygen: 2 L/min via nasal cannula Heparin given IA 11/12/2023 10:36:45 Nitro 100 mcg IC 11/12/2023 10:43:44 Verapamil 2.5mg, Ntg 100mcgs, 3000 units of Heparin given IA 11/12/2023 10:36:45 SUMMARY OF HEMODYNAMIC DATA Time AIR REST ECG 10:32:34 AO 151/85 (111) SA 10:40:58 AO 137/77 (103) 10:42:45 AO 148/80 (105) 10:52:40 AO 153/85 (113) 10:56:58 Signed By Hola Rowe MD On 11/12/2023 16:31:56 Hola Rowe MD
--- NOTE | 2023-11-12 19:06 | EKG12_ITS ---
Test Reason : cp Blood Pressure : / mmHG Vent. Rate : 066 BPM Atrial Rate : 066 BPM P-R Int : 188 ms QRS Dur : 120 ms QT Int : 484 ms P-R-T Axes : 065 087 047 degrees QTc Int : 507 ms Normal sinus rhythm Right bundle branch block Abnormal ECG When compared with ECG of 12-NOV-2023 10:10, MANUAL COMPARISON REQUIRED, DATA IS UNCONFIRMED Confirmed by Omero Martinez ([id number]), assistant editor KERRY FRIAS ([id number]) on 11/16/2023 1:58:08 PM Referred By: Soledad Confirmed By:Omero Martinez
[2023-11-12] MEDS: Mag /Aluminum/Simeth WCH UDC 30 ML ORAL.SUSP PO (19:36)
[2023-11-12] MEDS: Morphine 4 MG/ML Syringe IV (20:45)
[2023-11-12] MEDS: MELATONIN 3 MG TABLET PO (20:46)
[2023-11-12] MEDS: busPIRone 15 MG TABLET PO (20:46)
[2023-11-12] MEDS: buPROPion (SR) 150 MG Tablet.SA PO (20:47)
[2023-11-12] MEDS: Pantoprazole Sodium 40 MG Tablet PO (20:47)
[2023-11-12] MEDS: Amox/Clavulanate 875 MG Tablet PO (20:47)
[2023-11-12] MEDS: Enoxaparin 40 MG/0.4 ML Syringe SC (20:48)
[2023-11-12] MEDS: TICAGRELOR 90 MG TABLET PO (20:49)
[2023-11-12] MEDS: Atorvastatin Calcium 40 MG Tablet PO (20:50)
[2023-11-13] VITALS (17 sets, daily range): BP systolic 103–137; BP diastolic 48–93; PULSE 57–75; RESP 11–24; TEMP 35.6–36.5; O2SAT 94–99; BMI 41.2
[2023-11-13 04:27] LABS: Absolute Neutrophil Count 7.8 X10^3/uL (2.0-7.7); Basophil# 0.04 X10^3/uL; Basophil% 0.4 % (0-1); Eosinophil# 0.11 X10^3/uL; Hematocrit 34.1 % (37-47); Hemoglobin 10.2 g/dL (12.0-15.0); Lymphocyte % 20.2 % (19-41); Mean Corp Hgb Conc 29.9 g/dL (32-36); Mean Corpuscular Hgb 22.6 pg (27.0-32.0); Mean Corpuscular Volume 75.6 fL (81-99); Mean Platelet Vol. 10.7 fl (6.2-12.0); Monocyte# 0.68 X10^3/uL; Monocyte% 6.2 % (0-10); NRBC Flagged by Analyzer 0 % (0-5); Neutrophil % 71.6 % (47-70); Platelet Count 354 K/mm3 (150-450); RBC Distribution Width CV 16.5 % (11.6-14.6); RBC Distribution Width SD 44.4 fl (35.1-43.9); Red Blood Count 4.51 M/mm3 (4.2-5.4); White Blood Count 10.9 K/mm3 (4.4-11.0)
[2023-11-13 04:45] LABS: Anion Gap 3 (5-15); BUN 11 mg/dL (7-18); BUN/Creat Ratio 13.2 RATIO (10-20); Calcium,Total 8.6 mg/dL (8.5-10.1); Chloride 104 mmol/L (98-107); Creatinine, Serum 0.84 mg/dL (0.55-1.02); EST Glomerular Filtration Rate 78 mL/min (>60); Est Glom Filt Rate - Afr Amer 94 mL/min (>60); Estimated Creatinine Clearance 108.25 ml/min; Glucose 142 mg/dL (74-106); Magnesium 2.2 mg/dL (1.6-2.6); Potassium 3.6 mmol/L (3.5-5.1); Sodium Level 137 mmol/L (136-145)
[2023-11-13] MEDS: busPIRone 15 MG TABLET PO ×3 (06:14→21:29)
--- NOTE | 2023-11-13 07:16 | PN.HOSP_ITS ---
Reason for Visit Reason for Visit: Diagnoses ST elevation (STEMI) myocardial infarction involving left anterior descending coronary artery (11/12/23) Acute myocardial infarction, unspecified (11/12/23) Subjective Subjective 48-year-old lady admitted with chest pain diagnosed with acute ST segment elevation [place] underwent intervention with PCI to an LAD lesion Objective Data Objective Data Vital Signs: Vital Signs Temp Pulse Resp BP Pulse Ox O2 Del Method 96.5 F L 57 L 17 112/59 L 96 Room Air 11/13/23 04:19 11/13/23 06:00 11/13/23 06:00 11/13/23 06:00 11/13/23 06:00 11/13/23 06:00 Oxygen Delivery Method Room Air Weight: 115.9 kg Body Mass Index (BMI) 41.2 Intake & Output: Intake and Output for Last 24 Hours 11/11/23 11/12/23 11/13/23 23:59 23:59 23:59 Intake Total 400 / 400 1000 / 1000 Output Total 0 / 0 0 / 0 Balance 400 / 400 1000 / 1000 Lab / Micro Data 11/13/23 04:10 11/13/23 04:10 Labs: Laboratory Results - last 24 hr 11/12/23 09:57: WBC 9.1, RBC 5.14, Hgb 11.5 L, Hct 38.4, MCV 74.7 L, MCH 22.4 L, MCHC 29.9 L, RDW Std Deviation 43.1, RDW Coeff of Janey 16.3 H, Plt Count 412, MPV 10.9, Immature Gran % (Auto) 0.700, Neut % (Auto) 64.1, Lymph % (Auto) 25.5, [place] % (Auto) 6.9, Eos % (Auto) 2.3, Baso % (Auto) 0.5, Absolute Neuts (auto) 5.9, Absolute Lymphs (auto) 2.33, Nucleated RBC % 0, Sodium 137, Potassium 3.5, Chloride 103, Carbon Dioxide 27.0, Anion Gap 7, BUN 7, Creatinine 0.80, Estim Creat Clear Calc 114.44, Est GFR (MDRD) Af Amer 99, Est GFR (MDRD) Non-Af 82, B UN/Creatinine Ratio 8.7 L, Glucose 116 H, Calcium 9.2, Troponin I High Sens 421 H* 11/13/23 04:10: WBC 10.9, RBC 4.51, Hgb 10.2 L, Hct 34.1 L, MCV 75.6 L, MCH 22.6 L, MCHC 29.9 L, RDW Std Deviation 44.4 H, RDW Coeff of Janey 16.5 H, Plt Count 354, MPV 10.7, Immature Gran % (Auto) 0.600, Neut % (Auto) 71.6 H, Lymph % (Auto) 20.2, [place] % (Auto) 6.2, Eos % (Auto) 1.0, Baso % (Auto) 0.4, Absolute Neuts (auto) 7.8 H, Absolute Lymphs (auto) 2.20, Nucleated RBC % 0, Sodium 137, Potassium 3.6, Chloride 104, Carbon Dioxide 30.0, Anion Gap 3 L, BUN 11, Creatinine 0.84, Estim Creat Clear Calc 108.25, Est GFR (MDRD) Af Amer 94, Est GFR (MDRD) Non-Af 78, BUN/Creatinine Ratio 13.2, Glucose 142 H, Calcium 8.6, Magnesium 2.2 Micro: Microbiology 11/12/23 11:50 Nasal Secretion MRSA (PCR) - Final Radiography Diagnostic Testing: Radiology Impression Echocardiogram 11/12/23 15:10 Interpretation Summary The estimated ejection fraction is 65 %. No evidence for diastolic dysfunction. Ordering Physician: Paras Guerrero Referring Physician: Princess Baca Performed By: Rubi Montano RCS Rhythm Strip Rhythm Strip: Sinus Rhythm Rate: 53 Ectopy: None Physical Exam Narrative GENERAL: cooperative HEENT: Atraumatic; normocephalic EYES; Anicteric, Normal Conjunctiva NECK; supple, normal thyroid, RESPIRATORY: Diminished to auscultation CARDIOVASCULAR: Regular S1 S2, GI: soft, normoactive bowel sounds, : No Renal angle tenderness; EXTREMITIES: No edema, no clubbing, MUSCULOSKELETAL: no muscle wasting NEURO: Awake; no lateralizing signs. SKIN: No Rash PSYCH; Flat affect Assessment & Plan Assessment/Plan (1) Acute myocardial infarction: QUALIFIERS: Involved coronary artery: LAD coronary artery M yocardial infarction type: ST elevation myocardial infarction Qualified Code(s): I21.02 - ST elevation (STEMI) myocardial infarction involving left anterior descending coronary artery PLAN: Plan Patient is a 48-year-old lady presented with chest pain diagnosed with acute STEMI 1. Acute STEMI ? EKG on admission demonstrated EKG done in the emergency room revealed lateral ST elevation with inferior ST depressions suggestive of ST elevation [place]. Patient underwent emergency left heart catheterization which revealed 90% stenosis in the proximal LAD lesion. Patient underwent intervention with IKE. Subsequently admitted to the intensive care unit guideline directed medical therapy initiated ? 11/13/2023; patient did develop some chest discomfort during the night did receive GI cocktail with relief. 2D echo obtained demonstrated EF of 65% with no regional wall motion abnormality. 2. Hypertension ? Blood pressure controlled, home medications continued with dose adjustment as needed 3. GERD ? On PPI 4. Class III obesity with BMI of 42 ? Complicating care weight loss advised 5. Recent treatment for acute bronchitis patient is on amoxicillin plan is to complete therapy 6. Depression with anxiety ? Patient is on escitalopram as well as bupropion continue 7. Tobacco dependence ? Counseled on cessation, offered nicotine patch for tobacco cravings 8. DVT prophylaxis ? On enoxaparin Time spent in the patient's overall evaluation,decision-making process, review of diagnostic data, adjustment of management, discussion with other providers, nursing nursing and ancillary staff involved in patient's care documentation, 42-minute Charges/Coding Visit Charges Inpatient E&M: 19584 Subs Hosp L2
[2023-11-13] MEDS: Folic Acid 1 MG Tablet PO (08:01)
[2023-11-13] MEDS: Ferrous Sulfate 325 MG Tablet PO (08:01)
[2023-11-13] MEDS: Aspirin E.C. 81 MG Tablet PO (08:01)
[2023-11-13 08:46] LABS: ALB/GLOB Ratio 0.9 RATIO (0.9-2.4); AST(SGOT) 24 U/L (15-37); Alanine Aminotransfer ALT/SGPT 16 U/L (13-56); Albumin, Serum 2.9 g/dL (3.2-5.0); Alkaline Phosphatase 80 U/L (45-117); Anion Gap 6 (5-15); BUN 11 mg/dL (7-18); BUN/Creat Ratio 12.9 RATIO (10-20); Calcium,Total 8.2 mg/dL (8.5-10.1); Chloride 102 mmol/L (98-107); Creatinine, Serum 0.85 mg/dL (0.55-1.02); EST Glomerular Filtration Rate 76 mL/min (>60); Est Glom Filt Rate - Afr Amer 92 mL/min (>60); Estimated Creatinine Clearance 106.98 ml/min; Globulin 3.4 g/dL (2.2-4.2); Glucose 134 mg/dL (74-106); Phosphorus 2.6 mg/dL (2.5-4.9); Potassium 3.6 mmol/L (3.5-5.1); Protein, Total 6.3 g/dL (6.4-8.2); Sodium Level 135 mmol/L (136-145)
[2023-11-13] MEDS: buPROPion (SR) 150 MG Tablet.SA 300 MG PO (09:41)
[2023-11-13] MEDS: Amox/Clavulanate 875 MG Tablet PO ×2 (09:42→22:18)
[2023-11-13] MEDS: Losartan Potassium 25 MG Tablet PO (09:42)
[2023-11-13] MEDS: Enoxaparin 40 MG/0.4 ML Syringe SC ×2 (09:42→22:17)
[2023-11-13] MEDS: TICAGRELOR 90 MG TABLET PO (09:42)
[2023-11-13] MEDS: Pantoprazole Sodium 40 MG Tablet PO (09:42)
[2023-11-13] MEDS: Escitalopram Oxalate 10 MG Tablet PO (09:42)
[2023-11-13] MEDS: CARIPRAZINE HCL 1.5 MG CAPSULE 3 MG PO (09:43)
[2023-11-13] MEDS: Carvedilol 3.125 MG TABLET PO ×2 (09:45→22:18)
--- NOTE | 2023-11-13 10:00 | EKG12_ITS ---
Test Reason : CP Blood Pressure : / mmHG Vent. Rate : 065 BPM Atrial Rate : 065 BPM P-R Int : 196 ms QRS Dur : 124 ms QT Int : 474 ms P-R-T Axes : 066 087 047 degrees QTc Int : 492 ms Normal sinus rhythm Right bundle branch block Abnormal ECG When compared with ECG of 13-NOV-2023 05:27, MANUAL COMPARISON REQUIRED, DATA IS UNCONFIRMED Confirmed by Omero Martinez ([id number]), school photograph editor KERRY FRIAS ([id number]) on 11/16/2023 1:52:40 PM Referred By: GUNNAR Confirmed By:Omero Martinez
[2023-11-13] MEDS: Acetaminophen 325 MG Tablet 650 MG PO (10:12)
--- NOTE | 2023-11-13 10:28 | VDUE_ITS ---
Reason For Study: RUE Pain Right Proximal Left Proximal Right jugular vein is spontaneous, widely Left subclavian vein is spontaneous, widely patent, phasic, with no intraluminal patent, phasic, with no intraluminal echogenicity noted. echogenicity noted. Right subclavian vein is spontaneous, widely patent, phasic, with no intraluminal echogenicity noted. Right Lower Arm Right radial vein is compressible. Right ulnar vein is compressible. Right Arm Right axillary vein is spontaneous, patent, phasic, competent, compressible and demonstrates augmentation. Right brachial vein is compressible. Right cephalic vein is compressible. Right basilic vein is compressible. Patient Safety Normal arterial flow noted throughout s/p recent Rt Radial cath Prelim given to Dr. Tapia. VL/Venous Duplex US, Unilateral Interpretation Summary Deep veins of the right upper extremity are patent and compressible segmentally . There is no evidence of deep vein thrombosis. The superficial veins of the right upper extr emity, the basilic and cephalic vein, are patent and compressible. There is no evidence of acute s uperficial thrombophlebitis in the right upper extrmity involving the veins imaged. The le ft subclavian vein is patent. Ordering Physician: Cynthia Tapia Referring Physician: Princess Baca Performed By: Guerda Navarro, SHAJI, RVT ???
--- NOTE | 2023-11-13 10:32 | PN.CARD_ITS ---
Subjective Subjective No chest pain or shortness of breath. Complaining of some discomfort of the right upper arm with movement of the shoulder. Objective Data Vital Signs: Vital Signs Temp Pulse Resp BP Pulse Ox O2 Del Method 96.0 F L 62 20 H 127/83 H 95 Room Air 11/13/23 08:00 11/13/23 08:00 11/13/23 08:00 11/13/23 08:00 11/13/23 08:00 11/13/23 08:00 Oxygen Delivery Method Room Air Weight: 255 lb 8.252 oz Body Mass Index (BMI) 41.2 Intake & Output: Intake and Output for Last 24 Hours 11/11/23 11/12/23 11/13/23 23:59 23:59 23:59 Intake Total 400 / 400 1000 / 1000 Output Total 0 / 0 0 / 0 Balance 400 / 400 1000 / 1000 Lab / Micro Data 11/13/23 04:10 11/13/23 04:10 Labs: Laboratory Results - last 24 hr 11/12/23 09:57: WBC 9.1, RBC 5.14, Hgb 11.5 L, Hct 38.4, MCV 74.7 L, MCH 22.4 L, MCHC 29.9 L, RDW Std Deviation 43.1, RDW Coeff of Janey 16.3 H, Plt Count 412, MPV 10.9, Immature Gran % (Auto) 0.700, Neut % (Auto) 64.1, Lymph % (Auto) 25.5, [place] % (Auto) 6.9, Eos % (Auto) 2.3, Baso % (Auto) 0.5, Absolute Neuts (auto) 5.9, Absolute Lymphs (auto) 2.33, Nucleated RBC % 0, Sodium 137, Potassium 3.5, Chloride 103, Carbon Dioxide 27.0, Anion Gap 7, BUN 7, Creatinine 0.80, Estim Creat Clear Calc 114.44, Est GFR (MDRD) Af Amer 99, Est GFR (MDRD) Non-Af 82, B UN/Creatinine Ratio 8.7 L, Glucose 116 H, Calcium 9.2, Troponin I High Sens 421 H* 11/13/23 04:10: WBC 10.9, RBC 4.51, Hgb 10.2 L, Hct 34.1 L, MCV 75.6 L, MCH 22.6 L, MCHC 29.9 L, RDW Std Deviation 44.4 H, RDW Coeff of Janey 16.5 H, Plt Count 354, MPV 10.7, Immature Gran % (Auto) 0.600, Neut % (Auto) 71.6 H, Lymph % (Auto) 20.2, [place] % (Auto) 6.2, Eos % (Auto) 1.0, Baso % (Auto) 0.4, Absolute Neuts (auto) 7.8 H, Absolute Lymphs (auto) 2.20, Nucleated RBC % 0, Sodium 137 11/13/23 04:10: Sodium 135 L, Potassium 3.6 11/13/23 04:10: Potassium 3.6, Chloride 104 11/13/23 04:10: Chloride 102, Carbon Dioxide 30.0 11/13/23 04:10: Carbon Dioxide 27.0, Anion Gap 3 L 11/13/23 04:10: Anion Gap 6, BUN 11 11/13/23 04:10: BUN 11, Creatinine 0.84 11/13/23 04:10: Creatinine 0.85, Estim Creat Clear Calc 108.25 11/13/23 04:10: Estim Creat Clear Calc 106.98, Est GFR (MDRD) Af Amer 94 11/13/23 04:10: Est GFR (MDRD) Af Amer 92, Est GFR (MDRD) Non-Af 78 11/13/23 04:10: Est GFR (MDRD) Non-Af 76, BUN/Creatinine Ratio 13.2 11/13/23 04:10: BUN/Creatinine Ratio 12.9, Glucose 142 H 11/13/23 04:10: Glucose 134 H, Calcium 8.6 11/13/23 04:10: Calcium 8.2 L, Phosphorus 2.6, Magnesium 2.2, Total Bilirubin 0.50, AST 24, ALT 16, Alkaline Phosphatase 80, Total Protein 6.3 L, Albumin 2.9 L, Globulin 3.4, Albumin/Globulin Ratio 0.9 Micro: Microbiology 11/12/23 11:50 Nasal Secretion MRSA (PCR) - Final Rhythm Strip Rhythm Strip: Sinus Rhythm Rate: 53 Ectopy: None Cardiology Labs/Tests 11/12/23 09:57: WBC 9.1, RBC 5.14, Hgb 11.5 L, Hct 38.4, MCV 74.7 L, MCH 22.4 L, MCHC 29.9 L, Plt Count 412, MPV 10.9, Immature Gran % (Auto) 0.700, Neut % (Auto) 64.1, Lymph % (Auto) 25.5, [place] % (Auto) 6.9, Eos % (Auto) 2.3, Baso % (Auto) 0.5, Absolute Neuts (auto) 5.9, Nucleated RBC % 0, Sodium 137, Potassium 3.5, Chloride 103, Carbon Dioxide 27.0, Anion Gap 7, BUN 7, Creatinine 0.80, Est GFR (MDRD) Af Amer 99, Est GFR (MDRD) Non-Af 82, BUN/Creatinine Ratio 8.7 L, G lucose 116 H, Calcium 9.2 11/13/23 04:10: WBC 10.9, RBC 4.51, Hgb 10.2 L, Hct 34.1 L, MCV 75.6 L, MCH 22.6 L, MCHC 29.9 L, Plt Count 354, MPV 10.7, Immature Gran % (Auto) 0.600, Neut % (Auto) 71.6 H, Lymph % (Auto) 20.2, [place] % (Auto) 6.2, Eos % (Auto) 1.0, Baso % (Auto) 0.4, Absolute Neuts (auto) 7.8 H, Nucleated RBC % 0, Sodium 137 11/13/23 04:10: Sodium 135 L, Potassium 3.6 11/13/23 04:10: Potassium 3.6, Chloride 104 11/13/23 04:10: Chloride 102, Carbon Dioxide 30.0 11/13/23 04:10: Carbon Dioxide 27.0, Anion Gap 3 L 11/13/23 04:10: Anion Gap 6, BUN 11 11/13/23 04:10: BUN 11, Creatinine 0.84 11/13/23 04:10: Creatinine 0.85, Est GFR (MDRD) Af Amer 94 11/13/23 04:10: Est GFR (MDRD) Af Amer 92, Est GFR (MDRD) Non-Af 78 11/13/23 04:10: Est GFR (MDRD) Non-Af 76, BUN/Creatinine Ratio 13.2 11/13/23 04:10: BUN/Creatinine Ratio 12.9, Glucose 142 H 11/13/23 04:10: Glucose 134 H, Calcium 8.6 11/13/23 04:10: Calcium 8.2 L, Phosphorus 2.6, Magnesium 2.2, Total Bilirubin 0.50 Rhythm: EKG: Sinus rhythm with right bundle branch block ECHO: Stress Test: Cardiac Cath: PCI: CT Surgery: Holter monitor: EPS: PPM: CXR: Chest CT Scan: Radiography Diagnostic Testing: Radiology Impression Echocardiogram 11/12/23 15:10 Interpretation Summary The estimated ejection fraction is 65 %. No evidence for diastolic dysfunction. Ordering Physician: Paras Guerrero Referring Physician: Princess Baca Performed By: Rubi Montano RCS Physical Exam Narrative Comfortable. No apparent distress. Heart sounds 1 and 2 normal. No murmurs or rubs. Chest clear to auscultation bilaterally. Alert oriented x 3. No ankle edema. Right radial pulse 2+. Some tenderness right upper arm. No erythema or swelling noted. Assessment & Plan Assessment/Plan (1) ST elevation (STEMI) myocardial infarction involving left anterior descending coronary artery: PLAN: Status post drug-eluting stent to the proximal LAD. Overall left ventricular systolic function normal. Continue aspirin. Clopidogrel. Risk factor modification (2) Coronary artery disease: PLAN: See #1 above. (3) Hypertension: QUALIFIERS: Hypertension type: primary hypertension Qualified Code(s): I10 - Essential (primary) hypertension PLAN: Carvedilol and losartan. (4) Nicotine dependence: PLAN: Quit smoking. Patient counseled. (5) Obesity: QUALIFIERS: Obesity type: unspecified obesity type Obesity classification: adult class 3 (BMI >= 40) Serious obesity comorbidity presence: with serious comorbidity Body mass index: BMI 40.0-44.9 Qualified Code(s): E 66.01 - Morbid (severe) obesity due to excess calories; Z68.41 - Body mass index [BMI] 40.0-44.9, adult PLAN: Lose weight. (6) Pain in right upper arm: PLAN: Check venous Doppler right upper extremity. PLAN: Plan May discharge home tomorrow if remains hemodynamically stable.
--- NOTE | 2023-11-13 11:35 | CASEMGMT ---
RN CM Face to Face with patient for initial transition planning/care coordination assessment. RN CM introduced self and role at [facility]. Patient lying in bed, alert and oriented. Patient willing to participate in assessment and is able to answer all questions appropriately. Care providers, pharmacy, and demographics verified. Strata: 1 PCP: [facility] Specialists: [facility]erred [facility]acy: [facility] Insurance: [employer] Prescription Benefit: yes Living Will/HPOA: none LNOK: daughter Living Arrangements: Patient lives with daughter in a 2 story apartment. Patient states she is independent and able to ambulate stairs. Transportation: self, fiance, daughter DME/HHC: Patient denies DME in the home. No previous HHC or SNF Patient wishes to discharge home, denies need for home health at this time. Patient states he has no further needs or concerns at this time. CM to follow for discharge planning needs that may arise. Disposition Plan: Patient to discharge home with family support and follow-up plans in place. Tammi MILAN, RN, CM
[2023-11-13] MEDS: Clopidogrel Bisulfate 300 MG Tablet PO (15:14)
--- NOTE | 2023-11-13 17:23 | NURSING ---
This RN is taking over care at 1500.
--- NOTE | 2023-11-13 21:10 | NURSING ---
pt reports that she is having chest pain a 7/10 in her mid chest . rn and charge nurse made aware, and stat ekg was ordered.
--- NOTE | 2023-11-13 21:17 | NURSING ---
ekg completed and showed nsr , rn and charge nurse notified
[2023-11-13] MEDS: MELATONIN 3 MG TABLET PO (21:28)
[2023-11-13] MEDS: buPROPion (SR) 150 MG Tablet.SA PO (22:17)
[2023-11-13] MEDS: hydrOXYzine PAM 25 MG Capsule PO (22:17)
[2023-11-13] MEDS: Atorvastatin Calcium 40 MG Tablet PO (22:18)
[2023-11-13] MEDS: Mag /Aluminum/Simeth WCH UDC 30 ML ORAL.SUSP PO (22:18)
[2023-11-14 04:00] VITALS: BP 113/72; PULSE 59; RESP 16; TEMP 36.4; O2SAT 97
[2023-11-14 04:08] VITALS: BMI 41.3
[2023-11-14 06:00] VITALS: BP 113/72; PULSE 59; RESP 16; TEMP 36.4; O2SAT 97
[2023-11-14] MEDS: busPIRone 15 MG TABLET PO (06:09)
[2023-11-14 06:24] VITALS: PULSE 59; RESP 16; O2SAT 97
[2023-11-14 07:02] LABS: Absolute Lymphocyte Count 2.58 X10^3/uL (0.83-4.51); Absolute Neutrophil Count 4.6 X10^3/uL (2.0-7.7); Basophil# 0.04 X10^3/uL; Basophil% 0.5 % (0-1); Eosinophil# 0.19 X10^3/uL; Eosinophils% 2.3 % (0-5); Hematocrit 34.4 % (37-47); Hemoglobin 10.4 g/dL (12.0-15.0); Lymphocyte # 2.58 X10^3/ul (0.83-4.51); Lymphocyte % 31.9 % (19-41); Mean Corp Hgb Conc 30.2 g/dL (32-36); Mean Corpuscular Hgb 22.8 pg (27.0-32.0); Mean Corpuscular Volume 75.3 fL (81-99); Mean Platelet Vol. 10.7 fl (6.2-12.0); Monocyte# 0.66 X10^3/uL; Monocyte% 8.2 % (0-10); NRBC Flagged by Analyzer 0 % (0-5); Neutrophil # 4.58 X10^3/uL (2.7-7.7); Neutrophil % 56.6 % (47-70); Platelet Count 373 K/mm3 (150-450); RBC Distribution Width CV 16.3 % (11.6-14.6); RBC Distribution Width SD 43.9 fl (35.1-43.9); Red Blood Count 4.57 M/mm3 (4.2-5.4); White Blood Count 8.1 K/mm3 (4.4-11.0)
--- NOTE | 2023-11-14 07:41 | PCM.PN.HOSP ---
Reason for Visit Reason for Visit: Diagnoses Morbid (severe) obesity due to excess calories (11/12/23) Nicotine dependence, unspecified, uncomplicated (11/12/23) Essential (primary) hypertension (11/12/23) ST elevation (STEMI) myocardial infarction involving left anterior descending coronary artery (11/12/23) Acute myocardial infarction, unspecified (11/12/23) Atherosclerotic heart disease of [place] coronary artery without angina pectoris (11/12/23) Pain in right upper arm (11/12/23) Body mass index [BMI] 40.0-44.9, adult (11/12/23) Subjective Subjective Patient seen chest pain resolved. Plan is for patient to be discharged home Objective Data Objective Data Vital Signs: Vital Signs Temp Pulse Resp BP Pulse Ox O2 Del Method 97.6 F L 59 L 16 113/72 97 Room Air 11/14/23 06:00 11/14/23 06:24 11/14/23 06:24 11/14/23 06:00 11/14/23 06:24 11/14/23 06:24 Oxygen Delivery Method Room Air Weight: 116 kg Body Mass Index (BMI) 41.3 Intake & Output: Intake and Output for Last 24 Hours 11/12/23 11/13/23 11/14/23 23:59 23:59 23:59 Intake Total 400 / 400 1500 / 1600 300 / 300 Output Total 0 / 0 0 / 0 Balance 400 / 400 1500 / 1600 300 / 300 Lab / Micro Data 11/14/23 06:05 11/14/23 06:05 Labs: Laboratory Results - last 24 hr 11/13/23 04:10: Sodium 135 L, Potassium 3.6, Chloride 102, Carbon Dioxide 27.0, Anion Gap 6, BUN 11, Creatinine 0.85, Estim Creat Clear Calc 106.98, Est GFR (MDRD) Af Amer 92, Est GFR (MDRD) Non-Af 76, BUN/Creatinine Ratio 12.9, Glucose 134 H, Calcium 8.2 L, Phosphorus 2.6, Total Bilirubin 0.50, AST 24, ALT 16, Alkaline Phosphatase 80, Total Protein 6.3 L, Albumin 2.9 L, Globulin 3.4, Albumin/Globulin Ratio 0.9 11/14/23 06:05: WBC 8.1, RBC 4.57, Hgb 10.4 L, Hct 34.4 L, MCV 75.3 L, MCH 22.8 L, MCHC 30.2 L, RDW Std Deviation 43.9, RDW Coeff of Janey 16.3 H, Plt Count 373, MPV 10.7, Immature Gran % (Auto) 0.500, Neut % (Auto) 56.6, Lymph % (Auto) 31.9, [place] % (Auto) 8.2, Eos % (Auto) 2.3, Baso % (Auto) 0.5, Absolute Neuts (auto) 4.6, Absolute Lymphs (auto) 2.58, Nucleated RBC % 0 Micro: Microbiology 11/12/23 11:50 Nasal Secretion MRSA (PCR) - Final Radiography Diagnostic Testing: Radiology Impression Venous Doppler Study 11/13/23 10:28 Interpretation Summary Deep veins of the right upper extremity are patent and compressible segmentally. There is no evidence of deep vein thrombosis. The superficial veins of the right upper extremity, the basilic and cephalic vein, are patent and compressible. There is no evidence of acute superficial thrombophlebitis in the right upper extrmity involving the veins imaged. The left subclavian vein is patent. Ordering Physician: Cynthia Tapia Referring Physician: Princess Baca Performed By: Guerda Navarro, SHAJI, RVT ??? Rhythm Strip Rhythm Strip: Sinus Rhythm Rate: 53 Ectopy: None Physical Exam Narrative GENERAL: cooperative HEENT: Atraumatic; normocephalic EYES; Anicteric, Normal Conjunctiva NECK; supple, normal thyroid, RESPIRATORY: Diminished to auscultation CARDIOVASCULAR: Regular S1 S2, GI: soft, normoactive bowel sounds, : No Renal angle tenderness; EXTREMITIES: No edema, no clubbing, MUSCULOSKELETAL: no muscle wasting NEURO: Awake; no lateralizing signs. SKIN: No Rash PSYCH; Flat affect Assessment & Plan Assessment/Plan (1) Acute myocardial infarction: QUALIFIERS: Involved coronary artery: LAD coronary artery Myocardial infarction type: ST elevation myocardial infarction Qualified Code(s): I21.02 - ST elevation (STEMI) myocardial infarction involving left anterior descending coronary artery PLAN: Plan Patient is a 48-year-old lady presented with chest pain diagnosed with acute STEMI 1. Acute STEMI ? EKG on admission demonstrated EKG done in the emergency room revealed lateral ST elevation with inferior ST depressions suggestive of ST elevation [place]. Patient underwent emergency left heart catheterization which revealed 90% stenosis in the proximal LAD lesion. Patient underwent intervention with IKE. Subsequently admitted to the intensive care unit guideline directed medical therapy initiated ? 11/13/2023; patient did develop some chest discomfort during the night did receive GI cocktail with relief. 2D echo obtained demonstrated EF of 65% with no regional wall motion abnormality. 2. Hypertension ? Blood pressure controlled, home medications continued with dose adjustment as needed 3. GERD ? On PPI 4. Class III obesity with BMI of 42 ? Complicating care weight loss advised 5. Recent treatment for acute bronchitis patient is on amoxicillin plan is to complete therapy 6. Depression with anxiety ? Patient is on escitalopram as well as bupropion continue 7. Tobacco dependence ? Counseled on cessation, offered nicotine patch for tobacco cravings 8. DVT prophylaxis ? On enoxaparin Time spent in the patient's overall evaluation,decision-making process, review of diagnostic data, adjustment of management, discussion with other providers, nursing nursing and ancillary staff involved in patient's care documentation, 36 minutes
[2023-11-14 08:25] LABS: Anion Gap 6 (5-15); BUN 9 mg/dL (7-18); BUN/Creat Ratio 12.3 RATIO (10-20); Chloride 104 mmol/L (98-107); Creatinine, Serum 0.73 mg/dL (0.55-1.02); EST Glomerular Filtration Rate 91 mL/min (>60); Est Glom Filt Rate - Afr Amer 110 mL/min (>60); Estimated Creatinine Clearance 124.62 ml/min; Glucose 99 mg/dL (74-106); Sodium Level 137 mmol/L (136-145)
[2023-11-14] MEDS: Escitalopram Oxalate 10 MG Tablet PO (09:46)
[2023-11-14] MEDS: CARIPRAZINE HCL 1.5 MG CAPSULE 3 MG PO (09:46)
[2023-11-14] MEDS: buPROPion (SR) 150 MG Tablet.SA 300 MG PO (09:46)
[2023-11-14] MEDS: Folic Acid 1 MG Tablet PO (09:47)
[2023-11-14] MEDS: Pantoprazole Sodium 40 MG Tablet PO (09:47)
[2023-11-14] MEDS: Ferrous Sulfate 325 MG Tablet PO (09:48)
[2023-11-14] MEDS: Clopidogrel Bisulfate 75 MG Tablet PO (09:48)
[2023-11-14] MEDS: Losartan Potassium 25 MG Tablet PO (09:50)
[2023-11-14] MEDS: Carvedilol 3.125 MG TABLET PO (09:50)
[2023-11-14] MEDS: Enoxaparin 40 MG/0.4 ML Syringe SC (09:52)
[2023-11-14] MEDS: Amox/Clavulanate 875 MG Tablet PO (09:52)
[2023-11-14 09:55] VITALS: BP 123/72; PULSE 71; RESP 16; TEMP 36.4; O2SAT 96
--- NOTE | 2023-11-14 10:00 | EKG12_ITS ---
Test Reason : AM EKG Blood Pressure : / mmHG Vent. Rate : 062 BPM Atrial Rate : 062 BPM P-R Int : 200 ms QRS Dur : 120 ms QT Int : 478 ms P-R-T Axes : 066 083 042 degrees QTc Int : 485 ms Normal sinus rhythm Low voltage QRS Right bundle branch block Abnormal ECG When compared with ECG of 13-NOV-2023 21:12, MANUAL COMPARISON REQUIRED, DATA IS UNCONFIRMED Confirmed by Omero Martinez ([id number]), health editor KERRY FRIAS ([id number]) on 11/16/2023 1:53:04 PM Referred By: Confirmed By:Omero Martinez
[2023-11-14] MEDS: Fluconazole 100 MG Tablet 200 MG PO (10:06)
[2023-11-14] MEDS: Aspirin E.C. 81 MG Tablet PO (10:06)
[2023-11-14 10:38] VITALS: O2SAT 94
--- NOTE | 2023-11-14 10:57 | DS.PCM_ITS ---
Providers Date of Admission: 11/12/23 Date of Discharge: 11/14/23 Primary Care Physician: Dr. Princess Baca MD Reason For Visit: ACUTE STEMI Diagnosis Discharge Diagnosis (1) Acute myocardial infarction: Status: Acute Code(s): I21.9 - Acute myocardial infarction, unspecified Qualifiers: Myocardial infarction type: ST elevation myocardial infarction Involved coronary artery: LAD coronary artery Qualified Code(s): I21.02 - ST elevation (STEMI) myocardial infarction involving left anterior descending coronary artery Plan Patient is a 48-year-old lady presented with chest pain diagnosed with acute STEMI 1. Acute STEMI ? EKG on admission demonstrated EKG done in the emergency room revealed lateral ST elevation with inferior ST depressions suggestive of ST elevation [place]. Patient underwent emergency left heart catheterization which revealed 90% stenosis in the proximal LAD lesion. Patient underwent intervention with IKE. Subsequently admitted to the intensive care unit guideline directed medical therapy initiated ? 11/13/2023; patient did develop some chest discomfort during the night did receive GI cocktail with relief. 2D echo obtained demonstrated EF of 65% with no regional wall motion abnormality. 2. Hypertension ? Blood pressure controlled, home medications continued with dose adjustment as needed 3. GERD ? On PPI 4. Class III obesity with BMI of 42 ? Complicating care weight loss advised 5. Recent treatment for acute bronchitis patient is on amoxicillin plan is to complete therapy 6. Depression with anxiety ? Patient is on escitalopram as well as bupropion continue 7. Tobacco dependence ? Counseled on cessation, offered nicotine patch for tobacco cravings 8. DVT prophylaxis ? On enoxaparin Time spent in the patient's overall evaluation,decision-making process, review of diagnostic data, adjustment of management, discussion with other providers, nursing nursing and ancillary staff involved in patient's care documentation, 36 minutes Medications at Discharge Home Medications albuterol sulfate 90 mcg/actuation aerosol inhaler 1 - 2 puff inhalation Q6H PRN shortness of breath or wheezing #8.5 grams 03/26/21 folic acid 1 mg tablet 1 mg PO DAILY #90 tabs 10/08/21 ferrous sulfate 325 mg (65 mg iron) tablet (FeroSul) See Rx Instructions .Route .COMPLEX #90 tabs 09/05/22 omeprazole 40 mg capsule,delayed release 40 mg PO DAILY heartburn #90 caps 12/25/22 buspirone 15 mg tablet See Rx Instructions .Route .COMPLEX #90 tabs 04/08/23 bupropion HCl 150 mg tablet,12 hr sustained-release See Rx Instructions .Route .COMPLEX #270 TABLETS 07/10/23 hydroxyzine HCl 25 mg tablet 25 mg PO BID PRN anxiety #30 tabs 07/21/23 cariprazine 3 mg capsule (Vraylar) 3 mg PO DAILY #30 caps 11/03/23 losartan 25 mg tablet See Rx Instructions .Route .COMPLEX #90 tabs 11/03/23 escitalopram oxalate 10 mg tablet 10 mg PO DAILY depression #30 tabs 11/11/23 amoxicillin 875 mg-potassium clavulanate 125 mg tablet 1 tab PO BID pna 11/12/23 aspirin 81 mg tablet,delayed release 81 mg PO DAILY@0800 #90 tabs 11/14/23 atorvastatin 40 mg tablet 40 mg PO QHS #90 tabs 11/14/23 carvedilol 3.125 mg tablet 3.125 mg PO BID #180 tabs 11/14/23 clopidogrel 75 mg tablet 75 mg PO DAILY #90 tabs 11/14/23 Hospital Course Procedures 2-D Echocardiogram and Cardiac catheterization Physical Exam Narrative GENERAL: cooperative HEENT: Atraumatic; normocephalic EYES; Anicteric, Normal Conjunctiva NECK; supple, normal thyroid, RESPIRATORY: Diminished to auscultation CARDIOVASCULAR: Regular S1 S2, GI: soft, normoactive bowel sounds, : No Renal angle tenderness; EXTREMITIES: No edema, no clubbing, MUSCULOSKELETAL: no muscle wasting NEURO: Awake; no lateralizing signs. SKIN: No Rash PSYCH; Flat affect Weight / BMI Weight Weight: 116 kg Body Mass Index (BMI) 41.3 ABG / Lab / Microbiology Data 11/14/23 06:05 11/14/23 06:05 Laboratory: Laboratory Results - last 24 hr 11/14/23 06:05: WBC 8.1, RBC 4.57, Hgb 10.4 L, Hct 34.4 L, MCV 75.3 L, MCH 22.8 L, MCHC 30.2 L, RDW Std Deviation 43.9, RDW Coeff of Janey 16.3 H, Plt Count 373, MPV 10.7, Immature Gran % (Auto) 0.500, Neut % (Auto) 56.6, Lymph % (Auto) 31.9, [place] % (Auto) 8.2, Eos % (Auto) 2.3, Baso % (Auto) 0.5, Absolute Neuts (auto) 4.6, Absolute Lymphs (auto) 2.58, Nucleated RBC % 0, Sodium 137, Potassium 4.0, Chloride 104, Carbon Dioxide 27.0, Anion Gap 6, BUN 9, Creatinine 0.73, Estim Creat Clear Calc 124.62, Est GFR (MDRD) Af Amer 110, Est GFR (MDRD) Non-Af 91, BUN/Creatinine Ratio 12.3, Glucose 99, Calcium 9.0 Microbiology: Microbiology 11/12/23 11:50 Nasal Secretion MRSA (PCR) - Final Radiography Diagnostic Testing: Radiology Impression Venous Doppler Study 11/13/23 10:28 Interpretation Summary Deep veins of the right upper extremity are patent and compressible segmentally. There is no evidence of deep vein thrombosis. The superficial veins of the right upper extremity, the basilic and cephalic vein, are patent and compressible. There is no evidence of acute superficial thrombophlebitis in the right upper extrmity involving the veins imaged. The left subclavian vein is patent. Ordering Physician: Cynthia Tapia Referring Physician: Princess Baca Performed By: Guerda Navarro, SHAJI, RVT ??? D/C Instructions Discharge Diet: Low fat / Low cholesterol Discharge Activity: Return to Normal Activity Call your doctor if you observe: Fever of 101 or Higher, Shortness of breath, Fainting spells and Chest pain Meaningful Use Info Meaningful Use Meaningful Use Diagnoses (Choose all that apply): AMI AMI/Post PCI/Angioplasty Aspirin given w/in 24hrs of arrival?: Yes ASA at discharge?: Yes Antiplatelet Therapy at Discharge:: Yes Statins at discharge?: Yes Rupert/ARB at discharge?: No Reason Rupert/ARB not ordered:: Not indicated Beta Edie at discharge?: Yes Done w/ Acute [place] measure.: Yes Documented LVEF (%): 65 Ischemic Stroke Statin Dosing Therapy Reference: STATIN DOSE THERAPY REFERENCE: * Patients > 75 years receive moderate or high dose statin therapy. * Patients 75 years or YOUNGER should receive HIGH intensity statin dose unless contraindicated. You will be required to document reason for non-treatment if statin daily dose does not meet guidelines. HIGH DOSE STATIN THERAPY DAILY Atorvastatin > than or = to 40 mg Rosuvastatin > than or = to 20 mg Amlodipine + Atorvastatin > than or = to 2.5/40 mg Ezetimibe + Simvastatin 10/80 mg Simvastatin 80mg Discharge Plan Admission Admit Date/Time: 11/12/23 10:37 Attending Provider: Paras Guerrero Primary Care Provider: Princess Baca Discharge Orders/Prescriptions Prescriptions: New atorvastatin 40 mg Tablet 40 mg PO QHS Qty: 90 0RF clopidogrel 75 mg Tablet 75 mg PO DAILY Qty: 90 0RF aspirin 81 mg Tablet,Delayed Release (Dr/Ec) 81 mg PO DAILY@0800 Qty: 90 0RF carvedilol 3.125 mg Tablet 3.125 mg PO BID Qty: 180 0RF Continued albuterol sulfate 90 mcg/actuation HFA aerosol inhaler 1 - 2 puff inhalation Q6H PRN (Reason: shortness of breath or wheezing) Qty: 8.5 0RF folic acid 1 mg tablet 1 mg PO DAILY Qty: 90 3RF hydroxyzine HCl 25 mg tablet 25 mg PO BID PRN (Reason: anxiety) Qty: 30 1RF amoxicillin-pot clavulanate 875-125 mg tablet 1 tab PO BID ferrous sulfate [FeroSul] 325 mg (65 mg iron) tablet See Rx Instructions .ROUTE .COMPLEX Qty: 90 1RF Dose Instruction: take 1 tablet by mouth once daily Rx Instructions: take 1 tablet by mouth once daily omeprazole 40 mg capsule,delayed release(DR/EC) 40 mg PO DAILY Qty: 90 3RF buspirone 15 mg tablet See Rx Instructions .ROUTE .COMPLEX Qty: 90 0RF Dose Instruction: take 1 tablet by mouth three times a day for 3 MONTHS Rx Instructions: take 1 tablet by mouth three times a day for 3 MONTHS bupropion HCl 150 mg tablet sustained-release 12 hr See Rx Instructions .ROUTE .COMPLEX Qty: 270 3RF Dose Instruction: take 2 tablets by mouth every morning and 1 tablet every evening Rx Instructions: take 2 tablets by mouth every morning and 1 tablet every evening Vraylar 3 mg capsule 3 mg PO DAILY Qty: 30 0RF losartan 25 mg tablet See Rx Instructions .ROUTE .COMPLEX Qty: 90 0RF Dose Instruction: take 1 tablet by mouth once daily Rx Instructions: take 1 tablet by mouth once daily escitalopram oxalate 10 mg tablet 10 mg PO DAILY Qty: 30 1RF Referrals / Follow Up: Princess Baca MD [Primary Care Provider] - Within 2 Weeks Izzy Rowe MD [Med Staff - Active Staff] - Within 2 Weeks Disposition Disposition (needs filled in before D/C Order can be placed): Home, Self Care Charges/Coding Visit Charges Inpatient E&M: 24737 Disch Hosp >30min
--- NOTE | 2023-11-14 11:05 | CASEMGMT ---
Social Work Pt does not have LW/POA, declined additional information. LEYDA Marie
== END 2023-11-14 13:22 | disposition home or self-care (01) | DRG 174 ==
LOC: ED 10:35 → ICU 22:57 → PCU 11-13 15:16
PROVIDERS: Admitting Provider Specialist; Emergency Provider Emergency Medicine; PCP Internal Medicine; Visit Provider Internal Medicine
DX: I21.02 ST elevation (STEMI) myocardial infarction involving left anterior descending coronary artery (principal); E66.01 Morbid (severe) obesity due to excess calories; I10 Essential (primary) hypertension; Z68.41 Body mass index [BMI] 40.0-44.9, adult; F17.210 Nicotine dependence, cigarettes, uncomplicated; K21.9 Gastro-esophageal reflux disease without esophagitis; J20.9 Acute bronchitis, unspecified; F41.8 Other specified anxiety disorders; I25.10 Atherosclerotic heart disease of native coronary artery without angina pectoris; M79.621 Pain in right upper arm; Z86.16 Personal history of COVID-19; Z86.718 Personal history of other venous thrombosis and embolism; Z79.82 Long term (current) use of aspirin; Z95.5 Presence of coronary angioplasty implant and graft
CPT/HCPCS: 36415; 80048; 80053; 83735; 84100; 84484; 85025; 87641; 92941; 93005; 93306; 93454; 93971; 97802; 99283; C1874; J7030; Q9957; Q9967; A4216; C1725; C1769; C1887; C1894; C8929; C9606; J1327; J2405

== ENCOUNTER → 2023-11-26 | Outpatient (CLI) | payer MEDICAID, SELFPAY ==
--- NOTE | 2023-11-26 09:53 | CR.HP_ITS ---
CR - History & Physical General Arrival date:: 11/26/23 Arrival time:: 09:53 Date of Referral:: 11/13/23 Date of CR Evaluation:: 11/26/23 Referring Physician: Dr. Rowe Primary Diagnosis: PCI History of Present Cardiac Event Onset Date PTCA or coronary stenting:: Yes Vessel: LAD 11/12/23 Medications Ambulatory Orders ?Medication ?Instructions ?Recorded albuterol sulfate 90 mcg/actuation 1 - 2 puff inhalation Q6H PRN 03/26/21 aerosol inhaler shortness of breath or wheezing #8.5 grams folic acid 1 mg tablet 1 mg PO DAILY supplement #90 tabs 10/08/21 ferrous sulfate 325 mg (65 mg See Rx Instructions .Route 09/05/22 iron) tablet (FeroSul) .COMPLEX supplement #90 tabs buspirone 15 mg tablet See Rx Instructions .Route 04/08/23 .COMPLEX mental health #90 tabs bupropion HCl 150 mg tablet,12 hr See Rx Instructions .Route 07/10/23 sustained-release .COMPLEX mental health #270 TABLETS hydroxyzine HCl 25 mg tablet 25 mg PO BID PRN anxiety #30 tabs 07/21/23 cariprazine 3 mg capsule (Vraylar) 3 mg PO DAILY mental health #30 11/03/23 caps losartan 25 mg tablet See Rx Instructions .Route 11/03/23 .COMPLEX blood pressure #90 tabs escitalopram oxalate 10 mg tablet 10 mg PO DAILY depression #30 tabs 11/11/23 aspirin 81 mg tablet,delayed 81 mg PO DAILY@0800 #90 tabs 11/14/23 release atorvastatin 40 mg tablet 40 mg PO QHS #90 tabs 11/14/23 carvedilol 3.125 mg tablet 3.125 mg PO BID #180 tabs 11/14/23 clopidogrel 75 mg tablet 75 mg PO DAILY #90 tabs 11/14/23 nicotine 21 mg/24 hr daily 21 mg transdermal DAILY #30 ea 11/14/23 transdermal patch pantoprazole 40 mg tablet,delayed 40 mg PO DAILY #30 tabs 11/19/23 release Allergies Allergies cinnamon Allergy (Verified 11/18/23 10:53) Rash Sleep Disorder Evaluation Hx of Sleep Apnea: No Do you snore loudly (louder than talking or can be heard through closed doors)?: No Do you often feel tired/ fatigued/ sleepy during daytime?: No Has anyone observed you stop breathing during sleep?: No History of Hypertension (for STOP score): Yes STOP Results: Negative Advanced Directives Advanced Directives Power of Safety Administrator: No Living Will: No Advance Directives Information Provided: No Advance Directives on File: No DNR Order?:: No Past Medical History Covid-19 Screening Physicial Symptoms Other Clinical Concerns Exposure Risk Pertinent Comorbidities Has a serious heart condition:: Yes Past Medical Illness Past Medical History Cough R05.9 Borderline type 2 diabetes mellitus R73.03 Atherosclerotic heart disease of [place] coronary artery without angina pectoris I25.10 URI (upper respiratory infection) J06.9 Flu vaccine need Z23 Dermatitis L30.9 Bipolar depression F31.9 Anxiety and depression F41.9, F32.A Bilateral primary osteoarthritis of knee M17.0 Knee pain, bilateral M25.561, M25.562 Abdominal wall abscess L02.211 Bronchitis J40 Obesity E66.9 Sinusitis J32.9 Screening for thyroid disorder Z13.29 COVID-19 U07.1 Right elbow pain M25.521 Swelling of thyroid gland E07.9 Acute maxillary sinusitis, unspecified J01.00 Enlarged uterus N85.2 Osteoarthritis of both knees M17.0 Sebaceous cyst L72.3 Hypertension I10 GERD (gastroesophageal reflux disease) K21.9 Depression F32.9 Anxiety F41.9 Alcohol abuse F10.10 Past Surgical History Past Surgical History (Updated 11/22/23 @ 00:02 by Tony Angelo) Stented coronary artery (11/12/23) Z95.5 [place] IKE 4.5 X 18 to LAD 11/12/2023 [place] teeth removed K08.409 History of Z98.891 1996 History of tubal ligation Z98.51 Surgical History: - Family History Summary Family History Grandmother Cancer Grandfather Dementia Other Depression with anxiety Social History Smoking History Smoking Status: Former smoker Years Smokin (less than 1 pack a day) Hx Smoking Cessation Date: 11/12/23 Hx Tobacco Use: Yes Hx Smoking Exposure: Yes Alcohol Use Alcohol Usage: No Substance Abuse Hx Substance Use: No Occupation Occupation (List type of work in comments):: Employed Hours worked per day:: 5 Social Environment Status Marital Status: Single Safety Do you feel safe in your surroundings?: Yes Assistance Do you need any assistance at home?: no Review of Systems Review of Systems Hints Review of Present Symptoms: Reports Shortness of Breath with Exertion, Angina, Fatigue, Appetite - Normal and Appetite - Special Diet; Denies Shortness of Breath at Rest, PVD, Operative Discomfort, Wound Healing, Dizziness/Lightheadedness, Heart Arrhythmia/Irregularities, Sleep - Normal or Sexual Changes Pain Is Patient Pain Free?: Yes Risk Factor Assessment Chief Complaint Chief Complaint: PCI Vital Signs Pulse Ox: 97 Blood Pressure: 124/70 Pulse Pulse Rhythm: Regular Hypertension Blood Pressure Sitting - Left Arm: 124/70 Stress Stress: Home/Family and - (financial) Obesity Height: 5 ft 6 in Weight:: 255 lb Weight in Pounds: 255.0 lbs Body Mass Index (BMI): 41.1 Nutritional Referral for Obesity: No (declines) Physical Inactivity Physical Inactivity: Reg Exercise 30 min/day Risk Stratification Risk Guidelines: Moderate Risk: Risk Factor for Dyslipidemia, Risk Factor for Diabetes and Risk Factor for Sedentary Lifestyle and Highest Risk: Risk Factor for Smoking, Risk Factor for Obesity, Risk Factor for Hypertension and Risk Factor for Depression For Smoking Smoking Risk Guidelines For Dyslipidemia Dyslipidemia Risk Guidelines For Diabetes Mellitus Diabetes Risk Guidelines For Obesity/Overweight Obesity/Overweight Risk Guidelines For Hypertension Hypertension Risk Guidelines For Sedentary Lifestyle Sedentary Lifestyle Risk Guidelines For Depression Depression Risk Guidelines Family History Family History Grandmother Cancer Grandfather Dementia Other Depression with anxiety Motivation Motivation to Participate On a scale of 1 to 10, how prepared are you to commit to attending program?: 7 What do you see as barriers to successfully being able to complete the program?: nothing What do you see as the benefits of succesfully completing the program? In other words, what do you hope to get out of participating in the program?: weight loss, stronger heart, better eating habits Are there issues you are dealing with that will interfere with completing the program?: no Do you have a spouse or signficant other, family or friends who will help suppo rt you to complete the program?: yes
--- NOTE | 2023-11-26 10:01 | CR.ITP_ITS ---
Diagnosis General Information Admitting Diagnosis: PCI Personal Learning Style:: Audio/Visual Barriers to Learning: No Barriers Stage of change r/t lifestyle modifications:: Contemplation Gave educational material for:: Treating Heart Disease, How The Heart Works, What it means to have Heart Disease, How Coronary Artery Disease is Diagnosed, Heart Procedures, What Heart Medications Do, Risk Factors & Modifications, Living an Active Life, Nutrition, Emotions & Heart Disease, Stress Management & Relaxation and Sleep Disorders & Heart Disease Education/Goals Cardiac Rehabilitation Goals Personal Goals: Initial Assessment: Improve management of stress and emotions, Improve energy level, Participate in home exercise program, Improve diet and eating habits (eat healthier) and Control risk factors (learn risk factor modification) Scale for measuring improvement of personal goals Diagnosis & Disease Process Outcomes/Goals: Pt IDs own risk factors & lifestyle modifications by Session 10, Verbalizes symptoms of angina & response by session 3., Pt independently manages and Other Additional Outcomes/Goals: Plan/Interventions: Assist Pt to ID & engage in lifestyle modification to reduce CVD risk, Instruct on individual risk factors, Review symptoms of angina & emergency actions, Review secondary diagnosis & identify educational needs. and Other see comment 30 day Reassessments:: Not Met 30 day Reassessments:: Not Met 30 day Reassessments:: Not Met 30 day Reassessments:: Not Met Final Reassessments:: Not Met Safety Referral to Physical Therapy: No Referral to [facility] Case Management: No Fall Risk Assessed:: Yes Assistive Devices:: None Exercise - Initial Assessment Visit Date of Eval: 11/26/23 (initial eval ) Mets: Pre-: >3 METS for 30 minutes by discharge, >5 METS for 30 minutes by discharge, >7 METS for 30 minutes by discharge and Unable to meet goal due to: (see comment below) Physician Prescribed Exercise Modalities: Treadmill, Rower, Schwinn Airdyne AD-7, SciFit Stepper, SciFit Pro- II Ergometer and SciFit Lateral [place] Frequency: 3x/week for 12 weeks [36 sessions] Intensity: 60-80% of age predicted maximum heart rate reserve Duration: 30 - 45 minutes Current METSs:: 3 Target Heart Rate:: 104-131 Resting Blood Pressure: 124/70 EKG Type: NSR RBBB Outcomes & Goals Goals:: Verbalizes understanding of THR, RPE & goal METS by session 6, Documents in home exercise log/reports 30 min aerobic 5 day/wk by DC, Demonstrates accu rate pulse taking by DC and Other additional outcome/goals: see below Intervention & Plan Exercise Program Goals: Instruct on personal THR & RPE, Instruct on MET level & personal MET goal, Show patient to take own pulse /validate performance until accurate, Instruct on home exercise and Other additional plan/int Physical Activity Home Exercise Physical Activity - Home Exercise: Safe Exercise, Warm-up, Self-monitoring, Cool-Down, Home Exercise > 30 min Daily and Sitting Time <3 hours/daily Outcomes & Goals Outcomes/Goals: Demonstrates correct Warm-up/exercise Cool-Down (S3) if = 2.5 METs, Verbalizes symptoms of exercise intolerance by Session 3 (S3), Demonstrate safe equipment use (S3) & follows exercise prescrition (6) and Other: See below Intervention & Plan Plan/Intervention: Instruct warm-up & cool-down if exercising at > 2 METs, Instruct on symptoms of exercise intolerance & actions to take, Instruct & monitor on saf, Assess intial functional capacity & safety risk and Other See below Nutrition - Initial Assessment Program Goals Nutrition Program Goals Patient has diagnosis of Hyperlipidemia (ICD E78)?: No Visit Date of Eval: 11/26/23 (initial eval) Cholesterol/Lipids (Other Core Measures) Determine presence & major risk factors that modify LDL goal: Cigarette smoking, Hypertension or hypertensive medication, Low HDL cholesterol <40 mg/dL*, Family history of premature CHD in Male < 55 years: female <65 yearsFa and Age men > 45 years; women >/= 55 years Outcomes/Goals: Pt IDs own risk factors & lifestyle modifications by Session 10, Verbalizes symptoms of angina & response by session 3., Pt independently manages and Other Additional Outcomes/Goals: Intervention/Plan: Advocate for lipid panel cholesterol medication if applicab le, Instruct on personal lipid levels & lipid goals/NCEP guidelines, Instruct on cholesterol and Other additional plan/int Referral to dietitian:: No (declines) Diabetes (Other Core Measures) Diabetes Type: Not Applicable Weight Mgt (Other Care) Height: 5 ft 6 in Weight:: 255 lb BMI: 41.1 Diagnosis Overweight/Obesity BMI> 30% ICD-10 E66: Yes Diagnosis High BMI/Morbid Obesity BMI> 35% ICD-10 Z68: Yes Outcomes/Goals: Pt sets, maintains & shows weight loss goal & trend during rehab and Other additional outcomes/goals Intervention/Plan: Instruct on ideal BMI & set weight loss goal w/patient, Assist pt to ID & incorporate diet changes for weight loss by S9, Refer to Structured Weight Loss program as appropriate, Encourage goal of using 250- 300dcal per session for weight loss and Other additional plan/interventions Healthy Eating Habits Will attend diet classes:: Yes Outcomes/Goals:: Consume diet rich in vegs,fruits,whole grain/high fiber,fish,lean meat, Limit sat/trans fats,cholesterol & added salts & sugars and Other additional outcome/goals: Intervention/Plan:: Assess current eating habits and Other Additional plan/interventions Education Gave educational materials for:: Signs & symptoms of hypoglycemia, Signs & symptoms of hyperglycemia, Relate diabetes to coronary artery disease and Healthy eating Core - Initial Assessment Visit Date of Eval: 11/26/23 (initial eval ) Medication Compliance Preventative Medication(s):: Aspirin, Clopidogrel/P2Y12 inhibit, Statin/lipid and Beta zahra H/O mental health issues: depression, anxiety, or addiction?: Yes Doesn?t believe in the benefits of treatment?: No Believes medications are unnecessary or harmful?: No Has a concern about medication side effects?: No Expresses concern over the cost of medications?: No Outcomes/Goals: Verbalizes medications,desired effect & common side effects @ DC, Pt self-reports following medication regimen, Keeps card in wallet w/medications listed by DC and Other additional outcome/goals: Interventions/plans: Instruct on medication effects & side effects, Review medication list w/patient every two weeks, Instruct importance of taking meds as ordered & assist problem solving and Other additional Tobacco Use Tobacco Use: Cigarettes How long ago did you quit using tobacco products?: Less than 6 months ago Years Smokin (Pt has stopped smoking. Pt was smoking less than 1 pack a day) Do you use smokeless tobacco?: No Outcomes/Goals: Smoking cessation achieved or maintained by discharge, Identify aids/strategies for achieving smoking cessation by session 6 and Other additional outcome/goals Interventions/plan: Instruct on effects of smoking & provide smoking cessation resource, Assist pt to set quit date & provide encouragement, Assist pt to develop strategies to achieve/maintain quit date, Assist pt w/nicotine replacement & medication for cessation success and Other additional plan/interventions Hypertension Hypertension Diagnosis:: Hypertension ICD-10 I10 Resting Blood Pressure:: 124/70 [place] [employer] Hypertension Guidelines Outcomes/Goals: Able to verbalize/achieve optimal blood pressure <130/80, Incorporates diet changes & exercise for blood pressure control by DC and Other additional outcomes/goals Interventions/plan: Instruct on optimal blood pressure, hypertension & medications, Instruct on effects of sodium, alcohol, stress, exercise &h ypertension and Other additional plan/interventions Tobacco Cessation Referral Smoking Cessation Referral:: No Individual Education/Counseling:: No Education Schedule Given:: Yes Psychosocial - Initial Assess VIsit Date of Eval: 11/26/23 (initial eval ) History of previous Mental disease:: Yes History of Emotional Disorders: Anxious and Depression (pt is medicated ) Target Goals Target Goals Outcomes/Goals: See list Psychosocial Outcomes/Goals:: ID's personal stressors & 2 strategies to manage stress by discharge and Other Additional outcome/goals: Intervention/Plan: See List Interventions/Plan:: Assess stressors,coping strategies & signs of derpression on admission, Instruct/assist pt to develop coping & personal stress Mgt strategies, Refer to Behavioral Health if appropriate, Refer to Physician if appropriate, Instruct patient to recognize signs & symptoms of depression, Instruct patient to recog and Other additional plan/intervention Patient Health Questionnaire PHQ-9 Screening Initial Assessment: 1. Little interest or pleasure in doing things: More than half the days 2. Feeling down, depressed, or hopeless: Not at all 3. Trouble falling or staying asleep, or sleeping too much: Nearly every day 4. Feeling tired or having little energy: Nearly every day 5. Poor appetite or overeating: Nearly every day 6. Feeling bad about yourself -- or that you are a failure or have let yourself or your family down: Not at all 7. Trouble concentrating on things, such as reading the newspaper or watching television: Not at all 8. Moving or speaking so slowly that other people could have noticed. Or the opposite - being so fidgety or restless that you have been moving around a lot more than usual: Not at all 9. Thoughts that you would be better off , or of hurting yourself in some way: Not at all How difficult have these problems made it for you to do your work, take care of things at home, or get along with other people?: Somewhat difficult Total Score: 11 ALIA-Q SV Test Statements CAD is a disease of the arteries in the heart: I Don't Know Examples of risk factors for heart disease: True Angina is chest pain or discomfort: I Don't Know The benefits of resistance training include: I Don't Know Eating more meat and dairy products: I Don't Know Anti-platelet medications such as aspirin are important: True The only effective way to manage stress: I Don't Know An exercise warm-up slowly increases heart rate: True Prepared, processed foods usually have high sodium: I Don't Know Depression is common after a heart attack: I Don't Know The statin medications lower cholesterol: I Don't Know To control blood pressure, lower the amount of sodium: I Don't Know If someone gets chest discomfort during walking: False Transfats are partially hydrogenated vegetable oils: True Sleep apnea that is not treated increases the risk: I Don't Know To control cholesterol, one should become a vegetarian: I Don't Know Someone knows if he/she is exercising at the right level: I Don't Know Diabetes cannot be prevented with exercise & health eating: I Don't Know Stress is a large risk for heart attack: I Don't Know A diet that can help lower blood pressure is rich in: I Don't Know Total Score Total Correct Responses: 5 Self-Efficacy 6-Item Scale Initial Assessment: We would like to know how confident you are in doing certain activities. Please select your confidence level for: Fatigue Select Number: 1 Physical Discomfort or Pain Select Number: 4 Emotional Distress Select Number: 4 Other Symptoms or Health Problems Select Number: 4 Different Tasks and Activities Select Number: 4 Medication Select Number: 7 Total Score:: 4 Nutrition Survey Nutrition Survey Instructions Scoring Instructions Nutrition Survey Initial: Have you lost >10 lbs over the past 2 months without trying?: No Are you following a special diet at home for diabetes, low fat, or low salt?: Yes Are you interested in meeting with a dietitian for help understanding your diet?: No Do you eat less than 3 meals a day?: Yes Do you eat fatty meats (carbajal, sausage, ribs, etc), fried foods, desserts, large amounts of salad dressings, margarine, butter, or cheese most days?: No Do you have food allergies? [Enter types in comment field]: Yes Do you eat in restaurants more than 3 times a week?: No Do you season food with salt, seasoning salt, or garlic salt?: No Do you used canned, boxed, frozen meals, or soups, seasoning packets?: No Total Score:: 3 Exercise - 30-day Assessment Physician Prescribed Exercise Modalities: Treadmill, Rower, Schwinn Airdyne AD-7, SciFit Stepper, SciFit Pro- II Ergometer and SciFit Lateral [place] Door Maker Exercise - 60-day Assessment Physician Prescribed Exercise Modalities: Treadmill, Rower, Schwinn Airdyne AD-7, SciFit Stepper, SciFit Pro- II Ergometer and SciFit Lateral [place] Exercise - 90-day Assessment Physician Prescribed Exercise Modalities: Treadmill, Rower, Schwinn Airdyne AD-7, SciFit Stepper, SciFit Pro- II Ergometer and SciFit Lateral [place] Exercise - Final/Discharge Physician Prescribed Exercise Modalities: Treadmill, Rower, Schwinn Airdyne AD-7, SciFit Stepper, SciFit Pro- II Ergometer and SciFit Lateral [place] Door Maker Frequency: 3x/week for 12 weeks [36 sessions] Intensity: 60-80% of age predicted maximum heart rate reserve Current METSs:: 3 Target Heart Rate:: 104-131 Nutrition - 30-Day Assessment Weight Mgt (Other Care) Height: 5 ft 6 in Weight:: 255 lb BMI: 41.1 Nutrition - 60-Day Assessment Weight Mgt (Other Care) Height: 5 ft 6 in Weight:: 255 lb BMI: 41.1 Core - 30-Day Assessment Tobacco Use Years Smokin (Pt has stopped smoking. Pt was smoking less than 1 pack a day) Core - Final Assessment Hypertension Resting Blood Pressure:: 124/70 [place] [employer] Hypertension Guidelines Core - 60-Day Assessment Hypertension Resting Blood Pressure:: 124/70 [place] [employer] Hypertension Guidelines Psychosocial - 30-Day Assess Target Goals Target Goals Psychosocial - 60-Day Assess Target Goals Target Goals Psychosocial - 90-Day Assess Target Goals Target Goals Psychosocial - Final Assessmen Target Goals Target Goals Nutrition - 90-Day Assessment Weight Mgt (Other Care) Height: 5 ft 6 in Weight:: 255 lb BMI: 41.1 Nutrition - Final Assessment Program Goals Patient has diagnosis of Hyperlipidemia (ICD E78)?: No Weight Mgt (Other Care) Height: 5 ft 6 in Weight:: 255 lb BMI: 41.1
[2023-11-26 10:12] VITALS: BP 124/70; O2SAT 97
[2023-11-26 10:44] VITALS: BP 124/70; BMI 41.1
[2023-11-26 10:45] VITALS: BMI 41.1
== END | disposition home or self-care (01) ==
PROVIDERS: PCP Internal Medicine; Referring Provider Specialist; Visit Provider Specialist
DX: Z95.5 Presence of coronary angioplasty implant and graft (principal); F31.9 Bipolar disorder, unspecified; I10 Essential (primary) hypertension; R73.03 Prediabetes; I25.10 Atherosclerotic heart disease of native coronary artery without angina pectoris; Z23 Encounter for immunization; F41.9 Anxiety disorder, unspecified; M17.0 Bilateral primary osteoarthritis of knee; E66.9 Obesity, unspecified; K21.9 Gastro-esophageal reflux disease without esophagitis; K08.409 Partial loss of teeth, unspecified cause, unspecified class; Z98.891 History of uterine scar from previous surgery; Z98.51 Tubal ligation status; Z87.891 Personal history of nicotine dependence; R06.02 Shortness of breath; I20.9 Angina pectoris, unspecified; R53.83 Other fatigue

== ENCOUNTER 2023-12-16 15:15 | Outpatient (RCR) | payer MEDICAID, SELFPAY ==
[2023-11-26 10:44] VITALS: BMI 41.1
== END 2023-12-21 23:59 ==
LOC: CR 15:15
PROVIDERS: PCP Internal Medicine; Referring Provider Specialist; Visit Provider Specialist
DX: Z95.5 Presence of coronary angioplasty implant and graft (principal); I21.02 ST elevation (STEMI) myocardial infarction involving left anterior descending coronary artery; I25.10 Atherosclerotic heart disease of native coronary artery without angina pectoris
CPT/HCPCS: 93798

== ENCOUNTER 2024-01-13 15:48 | Emergency (ER) | payer MEDICAID, SELFPAY ==
[2023-12-24 08:55] VITALS: BMI 40.5
[2024-01-13 15:50] VITALS: BP 126/66; PULSE 65; RESP 18; TEMP 36.6; O2SAT 98; BMI 40.6
--- NOTE | 2024-01-13 16:05 | EDS_ITS ---
HPI History of Present Illness Chief Complaint: Chest Pain Informant: patient Onset/Context/Timing Onset: Today Activity at onset: sudden Timing: Intermittent Quality: Positive for Sharp Location: Substernal Worsened By: Nothing Relieved By: - (Eating and drinking) Associated Symptoms: Positive for Lightheadedness; Negative for Nausea, Vomiting, Diaphoresis, Dyspnea, Cough, Fever, Acid Reflux or Palpitations Narrative Narrative: Patient presents with chest pain and lightheadedness that began today. Patient states she was at work when this began. Patient states that she felt clammy and lightheaded. Patient states she had a episode of pain in her chest. Patient had a recent NV and had recent stent placement 2 months ago. Patient denies any shortness of breath. Patient denies any nausea or vomiting. Patient denies any diaphoresis. Patient states her symptoms did get better with eating and drinking. CVD Risk Factors: Positive for Hypertension, Diabetes and Hypercholesterolemia; Negative for Family History 1' </=55 or Smoking PE Risk Factors: Positive for Recent Travel/Surgery and Prior DVT or PE; Negative for Recent Immobilization, Cancer or OCP + Smoking + >/=35 PFSH PFSH Medical History Heart attack UTI (urinary tract infection) Cough Borderline type 2 diabetes mellitus Atherosclerotic heart disease of [place] coronary artery without angina pectoris URI (upper respiratory infection) Flu vaccine need Dermatitis Bipolar depression Anxiety and depression Bilateral primary osteoarthritis of knee Knee pain, bilateral Abdominal wall abscess Bronchitis Obesity Sinusitis Screening for thyroid disorder COVID-19 Right elbow pain Swelling of thyroid gland Acute maxillary sinusitis, unspecified Enlarged uterus Osteoarthritis of both knees Sebaceous cyst Hypertension GERD (gastroesophageal reflux disease) Depression Anxiety Alcohol abuse Home Medications ?Medication ?Instructions ?Recorded ?Last Taken ?Type albuterol sulfate 90 mcg/actuation 1 - 2 puff inhalation Q6H PRN 03/26/21 Unknown Rx aerosol inhaler shortness of breath or wheezing #8.5 grams bupropion HCl 150 mg tablet,12 hr See Rx Instructions .Route 07/10/23 Unknown Rx sustained-release .COMPLEX mental health #270 TABLETS losartan 25 mg tablet See Rx Instructions .Route 11/03/23 Unknown Rx .COMPLEX blood pressure #90 tabs escitalopram oxalate 10 mg tablet 10 mg PO DAILY depression #30 tabs 11/11/23 Unknown Rx pantoprazole 40 mg tablet,delayed 40 mg PO DAILY #30 tabs 11/19/23 Unknown Rx release aspirin 81 mg tablet,delayed 81 mg PO DAILY@0800 #90 tabs 11/30/23 Unknown Rx release atorvastatin 40 mg tablet 40 mg PO QHS #90 tabs 11/30/23 Unknown Rx carvedilol 3.125 mg tablet 3.125 mg PO BID #180 tabs 11/30/23 Unknown Rx clopidogrel 75 mg tablet 75 mg PO DAILY #90 tabs 11/30/23 Unknown Rx cariprazine 3 mg capsule (Vraylar) 3 mg PO DAILY mental health #30 12/08/23 Unknown Rx caps hydroxyzine HCl 25 mg tablet 25 mg PO BID PRN anxiety #30 tabs 12/08/23 Unknown Rx ferrous sulfate 325 mg (65 mg See Rx Instructions .Route 12/10/23 Unknown Rx iron) tablet (FeroSul) .COMPLEX supplement #90 tabs folic acid 1 mg tablet 1 mg PO DAILY supplement #90 tabs 12/10/23 Unknown Rx buspirone 15 mg tablet 15 mg PO TID #270 tabs 12/15/23 Unknown Rx Allergy/AdvReac Type Severity Reaction Status Date / Time cinnamon Allergy Rash Verified 01/13/24 15:49 Family History Grandmother Cancer Grandfather Dementia Other Depression with anxiety Surgical History Stented coronary artery (11/12/23) [place] teeth removed History of History of tubal ligation Social History household members: children housing: house number of children: 4 current occupational status: employed current occupation: [employer] history of recent travel: No sexually active: Yes Smoking Status: Former smoker Tobacco: How many years used: 15 how long ago did patient quit smokin11/12/23 alcohol intake: former year quit: 2019 details: 8 months sober substance use type: does not use diet: diabetic and low carbohydrate caffeine: Yes Type: carbonated beverages Number of servings: 1 what type of physical activity do you participate in: walking seatbelt use: always do you feel safe at home: Yes additional social history: single ROS ROS ED Constitutional Constitutional ED: Denies chills or fever(s) Eyes Eyes: Denies blurry vision or change in vision ENT ENT ED: Denies rhinorrhea or sore throat Cardiovascular Cardiovascular: Reports chest pain; Denies palpitations Respiratory/Chest Respiratory/Chest: Denies cough or dyspnea Gastrointestinal Gastrointestinal: Denies abdominal pain, nausea or vomiting Genitourinary Genitourinary ED: Denies dysuria or hematuria Musculoskeletal Musculoskeletal: Denies back pain or neck pain Integumentary Denies abscess or rash Neurologic Neurologic: Reports weakness; Denies headache(s) Allergic/Immunologic Allergic/Immunologic ED: Denies mouth swelling or urticaria EXAM Physical Exam Const Vital Signs: 01/13/24 15:50 01/13/24 16:11 01/13/24 16:19 Temperature 97.9 F Temperature Source Oral Pulse Rate 65 Respiratory Rate 18 Respiratory Effort Short of Breath Blood Pressure 126/66 H Blood Pressure Mean 86 Pulse Ox 98 Oxygen Delivery Method Room Air Room Air 01/13/24 16:49 01/13/24 18:00 Temperature Temperature Source Pulse Rate 80 54 L Respiratory Rate 16 16 Respiratory Effort Blood Pressure 129/62 H 126/89 H Blood Pressure Mean 84 101 Pulse Ox 97 98 Oxygen Delivery Method Room Air Room Air Positive well nourished and well developed General Appearance ED: well developed and NAD HEENT Reports moist mucous membranes Neck supple and no JVD Resp normal respiratory effort and clear to auscultation bilaterally Cardio regular rate and regular rhythm GI soft to palpation, non-tender and non-distended Neuro oriented x3, CN's II-XII intact bilaterally and no sensory deficits noted Sensorium / Orientation: awake Motor Exam: strength 5/5 throughout Heart Score History: Slightly/Non-Suspicious ECG: Normal Age: >45 - <65 years Risk Factors: >/= 3 Risk Factors or History of CAD Troponin: </= Normal Limit Score: 3 MDM MDM MDM Narrative Medical decision making narrative: Differential diagnosis includes cardiac dysrhythmia, cardiac ischemia, pneumonia, pneumothorax, electrolyte abnormality, pulmonary embolism, gastroesophageal reflux disease, hypoglycemia, and anxiety. EKG will be obtained to assess for cardiac dysrhythmia and cardiac ischemia. Chest x-ray will be obtained to assess for pneumonia and pneumothorax. CBC will be obtained to assess for leukocytosis and anemia. Basic metabolic profile will be obtained to assess for hypoglycemia, electrolyte abnormality, and renal function. High- sensitivity troponin will be obtained to assess for cardiac ischemia. 2-hour repeat high-sensitivity troponin will be obtained to assess for ongoing cardiac ischemia. D-dimer will be obtained to assess for pulmonary embolism. Lab Data Attestation: I reviewed the patient's lab results. Lab results narrative: CBC was reviewed. There is a mild anemia with a hemoglobin of 11.0 and hematocrit 36.5. The remainder is essentially within normal limits. Basic metabolic profile was reviewed and was within normal limits. Initial high- sensitivity troponin was reviewed and was normal at 4. D-dimer was reviewed and was elevated at 3.21. 2-hour repeat high-sensitivity troponin was reviewed and was normal at 4. Labs: Laboratory Results - last 24 hr 01/13/24 01/13/24 01/13/24 16:12 16:17 18:26 WBC 6.7 RBC 4.69 Hgb 11.0 L Hct 36.5 L MCV 77.8 L MCH 23.5 L MCHC 30.1 L RDW Std Deviation 49.8 H RDW Coeff of Janey 17.8 H Plt Count 358 MPV 11.1 Immature Gran % (Auto) 0.100 Neut % (Auto) 59.7 Lymph % (Auto) 29.4 [place] % (Auto) 8.3 Eos % (Auto) 1.9 Baso % (Auto) 0.6 Absolute Neuts (auto) 4.0 Absolute Lymphs (auto) 1.98 Nucleated RBC % 0 D-Dimer Quant (PE/DVT) 3.21 H* Sodium 138 Potassium 3.9 Chloride 110 H Carbon Dioxide 23.0 Anion Gap 6 BUN 11 Creatinine 0.98 Estim Creat Clear Calc 92.06 Est GFR (MDRD) Af Amer 78 Est GFR (MDRD) Non-Af 65 BUN/Creatinine Ratio 11.2 Glucose 107 H Calcium 8.9 Troponin I High Sens 4 4 Radiography Chest X-Ray - ED: 2 View, Read by ED Physician, Read by Radiologist and No Acute Disease CTA PE Study: No Evidence of PE and No Evidence of Dissection Diagnostic Testing: Clinical Impression(s) from Imaging Studies Chest X-Ray 01/13/24 16:17 IMPRESSION: No radiographic evidence of acute cardiopulmonary disease. Electronically Signed: Gil Hernández DO at 16:54 EDT Reading Location ID and State: [facility] / [place] Tel [phone], Service support , Chest CTA 01/13/24 17:35 IMPRESSION: No demonstrated pulmonary embolism or arterial dissection. Possible cholelithiasis. Electronically Signed: Gil Hernández DO at 18:01 EDT , PA and lateral chest x-ray was obtained. There are 2 views. On my independent interpretation, lung gore are clear. There is normal cardiac silhouette. Bony thorax is normal. There is no acute process noted. Radiologist also interpreted the x-ray and agrees. Because of the elevated D-dimer, CTA of the chest was obtained. There is no evidence of pulmonary embolism or aortic dissection. There is no acute cardiopulmonary process noted. There is possible cholelithiasis. This was interpreted by the radiologist and was also independently reviewed by myself. EKG Initial EKG: Attestation: I personally reviewed and interpreted this EKG as follows: Interpretation: Sinus Rhythm (64), No Acute Injury Pattern and RBBB Comments: EKG was obtained. On my independent interpretation, shows normal sinus rhythm with a rate of 64. CO interval was normal at 192 ms. QRS interval was slightly prolonged at 124 ms. QTc interval was normal at 484 ms. [place] was normal. There is a right bundle branch block pattern noted. There are no acute ST or T wave changes noted. Prior EKG tracings: available for review Prior: Unchanged (11/14/2023) Treatment and Re-Evaluation :: Patient was given aspirin. Patient was advised of her findings. Patient has a HEART score of 3. Patient was advised that this is low risk for acute cardiac event. Patient was instructed to follow-up with her primary care physician in 5 to 7 days. Patient was instructed return if worse in any way. Patient understood and was agreeable with the plan. All questions were answered. Discharge Plan Triage Chief Complaint: Chest Pain ED Provider: Christoph Swartz Dx/Rx/DC Orders Clinical Impression: Chest pain, Hypertension Instructions: ED Chest Pain, Uncertain Cause Prescriptions: No Action albuterol sulfate 90 mcg/actuation HFA aerosol inhaler 1 - 2 puff inhalation Q6H PRN (Reason: shortness of breath or wheezing) Qty: 8.5 0RF buspirone 15 mg tablet 15 mg PO TID Qty: 270 2RF atorvastatin 40 mg tablet 40 mg PO QHS Qty: 90 3RF aspirin 81 mg tablet,delayed release (DR/EC) 81 mg PO DAILY@0800 Qty: 90 3RF carvedilol 3.125 mg tablet 3.125 mg PO BID Qty: 180 3RF clopidogrel 75 mg tablet 75 mg PO DAILY Qty: 90 3RF bupropion HCl 150 mg tablet sustained-release 12 hr See Rx Instructions .ROUTE .COMPLEX Qty: 270 3RF Dose Instruction: take 2 tablets by mouth every morning and 1 tablet every evening Rx Instructions: take 2 tablets by mouth every morning and 1 tablet every evening losartan 25 mg tablet See Rx Instructions .ROUTE .COMPLEX Qty: 90 0RF Dose Instruction: take 1 tablet by mouth once daily Rx Instructions: take 1 tablet by mouth once daily escitalopram oxalate 10 mg tablet 10 mg PO DAILY Qty: 30 1RF pantoprazole 40 mg tablet,delayed release (DR/EC) 40 mg PO DAILY Qty: 30 11RF Vraylar 3 mg capsule 3 mg PO DAILY Qty: 30 1RF hydroxyzine HCl 25 mg tablet 25 mg PO BID PRN (Reason: anxiety) Qty: 30 1RF folic acid 1 mg tablet 1 mg PO DAILY Qty: 90 3RF ferrous sulfate [FeroSul] 325 mg (65 mg iron) tablet See Rx Instructions .ROUTE .COMPLEX Qty: 90 3RF Dose Instruction: take 1 tablet by mouth once daily Rx Instructions: take 1 tablet by mouth once daily Primary Care Provider: Princess Baca Referrals: Princess Baca MD [Primary Care Provider] - 5-7 Days Print Language: Norwegian Disposition Disposition: Home, Self Care
--- NOTE | 2024-01-13 16:13 | EKG12_ITS ---
Test Reason : Blood Pressure : / mmHG Vent. Rate : 064 BPM Atrial Rate : 064 BPM P-R Int : 192 ms QRS Dur : 124 ms QT Int : 470 ms P-R-T Axes : 075 074 040 degrees QTc Int : 484 ms Normal sinus rhythm Right bundle branch block Abnormal ECG Confirmed by DARRELL CROSS, FINA ([id number]), supervising editor trailer MIKA ULLOA ([id number]) on 01/14/2024 9:25:00 AM Referred By: Confirmed By:FINA RAMÍREZ MD
--- NOTE | 2024-01-13 16:17 | RAD_ITS ---
INDICATION: chest pain EXAMINATION/TECHNIQUE: X-RAY - XR Chest 2 Views COMPARISON: April 04, 2021 FINDINGS: LINES/DEVICES: None. LUNGS: No consolidation, edema or effusion. No pneumothorax. MEDIASTINUM AND CARDIOVASCULAR STRUCTURES: Cardiac silhouette not enlarged. Central airways and mediastinal contour are unremarkable. BONES AND SOFT TISSUES: Unremarkable. RAD/Chest PA and Lateral IMPRESSION: No radiographic evidence of acute cardiopulmonary disease. Electronically Signed: Gil Hernández DO at 16:54 EDT ,
[2024-01-13] MEDS: Aspirin 81 MG TAB.CHEW 324 MG PO (16:20)
[2024-01-13 16:24] LABS: Absolute Lymphocyte Count 1.98 X10^3/uL (0.83-4.51); Basophil# 0.04 X10^3/uL; Basophil% 0.6 % (0-1); Eosinophil# 0.13 X10^3/uL; Eosinophils% 1.9 % (0-5); Hematocrit 36.5 % (37-47); Lymphocyte # 1.98 X10^3/ul (0.83-4.51); Lymphocyte % 29.4 % (19-41); Mean Corp Hgb Conc 30.1 g/dL (32-36); Mean Corpuscular Hgb 23.5 pg (27.0-32.0); Mean Corpuscular Volume 77.8 fL (81-99); Mean Platelet Vol. 11.1 fl (6.2-12.0); Monocyte# 0.56 X10^3/uL; Monocyte% 8.3 % (0-10); NRBC Flagged by Analyzer 0 % (0-5); Neutrophil # 4.01 X10^3/uL (2.7-7.7); Neutrophil % 59.7 % (47-70); Platelet Count 358 K/mm3 (150-450); RBC Distribution Width CV 17.8 % (11.6-14.6); RBC Distribution Width SD 49.8 fl (35.1-43.9); Red Blood Count 4.69 M/mm3 (4.2-5.4); White Blood Count 6.7 K/mm3 (4.4-11.0)
[2024-01-13 16:44] LABS: Anion Gap 6 (5-15); BUN 11 mg/dL (7-18); BUN/Creat Ratio 11.2 RATIO (10-20); Calcium,Total 8.9 mg/dL (8.5-10.1); Chloride 110 mmol/L (98-107); Creatinine, Serum 0.98 mg/dL (0.55-1.02); EST Glomerular Filtration Rate 65 mL/min (>60); Est Glom Filt Rate - Afr Amer 78 mL/min (>60); Estimated Creatinine Clearance 92.06 ml/min; Glucose 107 mg/dL (74-106); Potassium 3.9 mmol/L (3.5-5.1); Sodium Level 138 mmol/L (136-145); Troponin-I HS (w/2H Reflex) 4 pg/mL (3.0-54.0)
[2024-01-13 16:49] VITALS: BP 129/62; PULSE 80; RESP 16; O2SAT 97
[2024-01-13 17:11] LABS: D-Dimer Quantitative (DVT/PE) 3.21 FEU/ug/m (0.27-0.49)
--- NOTE | 2024-01-13 17:35 | CT_ITS ---
STUDY: CTA CHEST REASON FOR EXAM: Female, 48 years old. Elevated D-dimer RADIATION DOSAGE (If Supplied By Facility): CTDIvol = ( 15.04 ) mGy, DLP = ( 579.43 ) mGycm TECHNIQUE: The examination was performed with the intravenous administration of IV 100mL [id number]. Post-processing of the angiographic images was performed, with multiplanar reformation and 3D reconstruction. The protocol utilizes one or more of the following dose reduction techniques: automated exposure control, adjustment of mA and/or kV according to patient size,and/or use of iterative reconstruction technique. COMPARISON: FINDINGS: Normal enhancement of the main pulmonary artery and right and left pulmonary arteries. Normal enhancement of the bilateral peripheral pulmonary arteries. There is no demonstrated pulmonary embolism. Normal thoracic aorta and visualized great vessels. There is no demonstrated aortic dissection. Normal heart and pericardium. Normal mediastinum. Normal hilar regions. Normal visualized trachea and bronchi. The lungs are well expanded. Normal pulmonary parenchyma. Normal pleura. Normal chest wall structures. Normal osseous structures. Possible cholelithiasis. CT/CTA Chest W/WO Contrast IMPRESSION: No demonstrated pulmonary embolism or arterial dissection. Possible cholelithiasis. Electronically Signed: Gil Hernández DO at 18:01 EDT ,
[2024-01-13 18:00] VITALS: BP 126/89; PULSE 54; RESP 16; O2SAT 98
[2024-01-13 18:18] LABS: Reflex Troponin-HS? (from REC) Y
[2024-01-13 18:47] LABS: Troponin-I HS 4 pg/mL (3.0-54.0)
[2024-01-13 19:00] VITALS: BP 130/78; PULSE 63; RESP 16; O2SAT 95
[2024-01-13 19:38] VITALS: BP 111/69; PULSE 66; RESP 18; TEMP 36.7; O2SAT 99
== END 2024-01-13 19:39 | disposition home or self-care (01) ==
PROVIDERS: Emergency Provider Emergency Medicine; PCP Internal Medicine; Visit Provider Emergency Medicine
DX: R07.9 Chest pain, unspecified (principal); E11.9 Type 2 diabetes mellitus without complications; I25.10 Atherosclerotic heart disease of native coronary artery without angina pectoris; Z87.891 Personal history of nicotine dependence; I10 Essential (primary) hypertension; E78.00 Pure hypercholesterolemia, unspecified; K21.9 Gastro-esophageal reflux disease without esophagitis
CPT/HCPCS: 71046; 71275; 80048; 84484; 85025; 85379; 93005; 99284; J7040; Q9967; A4216

== ENCOUNTER 2024-01-20 15:15 | Outpatient (RCR) | payer MEDICAID, SELFPAY ==
[2023-11-26 10:44] VITALS: BMI 41.1
--- NOTE | 2023-12-24 08:38 | PCM.CR.ITP ---
Exercise - Initial Assessment Physician Prescribed Exercise Modalities: Treadmill, Rower, Eli Airrejine AD-7, SciFit Stepper, SciFit Pro-II Ergometer and SciFit Lateral Conference Coordinator Nutrition - Initial Assessment Weight Mgt (Other Care) Height: 5 ft 6 in Weight:: 251 lb BMI: 40.5 BMI (Report if calculated above): 40.5 Core - Initial Assessment Tobacco Use Years Smokin Psychosocial - Initial Assess Target Goals Target Goals Referral to Behavioral Health PS - Interventions: Yes: Attend Stress Management Classes and No: Referral to Behavioral Health if PHQ-9 score >9: (Pt already sees a psychiatrist and PCP ) Patient Health Questionnaire PHQ-9 Screening 30-Day Re-eval Assessment: 1. Little interest or pleasure in doing things: More than half the days 2. Feeling down, depressed, or hopeless: Not at all 3. Trouble falling or staying asleep, or sleeping too much: Nearly every day 4. Feeling tired or having little energy: Nearly every day 5. Poor appetite or overeating: Nearly every day 6. Feeling bad about yourself -- or that you are a failure or have let yourself or your family down: Not at all 7. Trouble concentrating on things, such as reading the newspaper or watching television: Not at all 8. Moving or speaking so slowly that other people could have noticed. Or the opposite - being so fidgety or restless that you have been moving around a lot more than usual: Not at all 9. Thoughts that you would be better off , or of hurting yourself in some way: Not at all How difficult have these problems made it for you to do your work, take care of things at home, or get along with other people?: Somewhat difficult Total Score: 11 Self-Efficacy 6-Item Scale 30-Day Re-eval Assessment: We would like to know how confident you are in doing certain activities. Please select your confidence level for: Fatigue Select Number: 1 Physical Discomfort or Pain Select Number: 4 Emotional Distress Select Number: 4 Other Symptoms or Health Problems Select Number: 4 Different Tasks and Activities Select Number: 4 Medication Select Number: 7 Total Score:: 4 Nutrition Survey Nutrition Survey Instructions Scoring Instructions Exercise - 30-day Assessment Visit Date of Eval: 12/24/23 Session #:: 7 Physician Prescribed Exercise Modalities: Treadmill, Rower, Schwinn Airdyne AD-7, SciFit Stepper, SciFit Pro-II Ergometer and SciFit Lateral Conference Coordinator Frequency: 3x/week for 12 weeks [36 sessions] Intensity: 60-80% of age predicted maximum heart rate reserve Duration: 30 - 45 minutes METs - Progression 0.5-1.0 weekly:: 0.5-1.0 Current METSs:: 3.2 Target Heart Rate:: 104-131 Target RPE 12-16:: 12-16 Current RPE:: 13 Maximum Excercise HR:: 103 Resting Blood Pressure: 110/64 Maximum Exercise Blood Pressure: 126/68 EKG Type: Sinus Rhythm to sinus tachycardia with BBB rare PVC Outcomes & Goals Goals:: Verbalizes understanding of THR, RPE & goal METS by session 6, Documents in home exercise log/reports 30 min aerobic 5 day/wk by DC and Demonstrates accurate pulse taking by DC Intervention & Plan Exercise Program Goals: Instruct on personal THR & RPE, Instruct on MET level & personal MET goal, Show patient to take own pulse /validate performance until accurate and Instruct on home exercise 30-day Reassessments 30 day Reassessments:: Progressing Reassessment Notes & Comments:: Pt able to verbalize understanding of RPE scale and use appropriately during exercise session. Physical Activity Home Exercise Physical Activity - Home Exercise: Safe Exercise, Warm-up, Self-monitoring, Cool-Down, Home Exercise > 30 min Daily and Sitting Time <3 hours/daily Outcomes & Goals Outcomes/Goals: Demonstrates correct Warm-up/exercise Cool-Down (S3) if = 2.5 METs, Verbalizes symptoms of exercise intolerance by Session 3 (S3) and Demonstrate safe equipment use (S3) & follows exercise prescrition (6) Intervention & Plan Plan/Intervention: Instruct warm-up & cool-down if exercising at > 2 METs, Instruct on symptoms of exercise intolerance & actions to take, Instruct & monitor on saf and Assess intial functional capacity & safety risk 30-day Reassessments 30 day Reassessments:: Progressing Reassessment Notes & Comments:: Pt correctly warms up and cools down with each exercise session, pt able to verbalize understanding of exercise intolerance and what actions to take if they occur Exercise - 60-day Assessment Physician Prescribed Exercise Modalities: Treadmill, Rower, Schwinn Airdyne AD-7, SciFit Stepper, SciFit Pro-II Ergometer and SciFit Lateral [place] Exercise - 90-day Assessment Physician Prescribed Exercise Modalities: Treadmill, Rower, Schwinn Airdyne AD-7, SciFit Stepper, SciFit Pro-II Ergometer and SciFit Lateral Conference Coordinator Exercise - Final/Discharge Physician Prescribed Exercise Modalities: Treadmill, Rower, Schwinn Airdyne AD-7, SciFit Stepper, SciFit Pro-II Ergometer and SciFit Lateral [place]un[place]y Nutrition - 30-Day Assessment Program Goals Nutrition Program Goals Patient has diagnosis of Hyperlipidemia (ICD E78)?: No Visit Date of Eval: 12/24/23 Session #:: 7 Cholesterol/Lipids (Other Core Measures) Referral to dietitian:: No 30-day Reassessments:: Met Reassessment Notes & Comments:: Pt does not have HDL Diabetes (Other Core Measures) Diabetes Type: Not Applicable Weight Mgt (Other Care) Height: 5 ft 6 in Weight:: 251 lb BMI: 40.5 BMI (Report if calculated above): 40.5 Diagnosis Overweight/Obesity BMI> 30% ICD-10 E66: Yes Diagnosis High BMI/Morbid Obesity BMI> 35% ICD-10 Z68: Yes Outcomes/Goals: Pt sets, maintains & shows weight loss goal & trend during rehab and Other additional outcomes/goals Intervention/Plan: Instruct on ideal BMI & set weight loss goal w/patient, Assist pt to ID & incorporate diet changes for weight loss by S9, Refer to Structured Weight Loss program as appropriate and Encourage goal of using 250-300dcal per session for weight loss 30 day Reassessments:: Progressing Reassessment Notes & Comments:: PT attending healthy eating and dietary classes, pt instructed on incorporating diet changes for weight loss. Education Gave educational materials for:: Signs & symptoms of hypoglycemia, Signs & symptoms of hyperglycemia, Relate diabetes to coronary artery disease and Healthy eating Nutrition - 60-Day Assessment Weight Mgt (Other Care) Height: 5 ft 6 in Weight:: 251 lb BMI: 40.5 BMI (Report if calculated above): 40.5 Core - 30-Day Assessment Medication Compliance Preventative Medication(s):: Aspirin, Clopidogrel/P2Y12 inhibit, Statin/lipid and Beta zahra H/O mental health issues: depression, anxiety, or addiction?: Yes Doesn?t believe in the benefits of treatment?: No Believes medications are unnecessary or harmful?: No Has a concern about medication side effects?: No Expresses concern over the cost of medications?: No Outcomes/Goals: Verbalizes medications,desired effect & common side effects @ DC, Pt self-reports following medication regimen and Keeps card in wallet w/medications listed by DC Interventions/plans: Instruct on medication effects & side effects, Review medication list w/patient every two weeks and Instruct importance of taking meds as ordered & assist problem solving 30-day Reassessments:: Progressing (Pt had recent virtual meeting with PCP and psychiatrist to discuss current mental health medication regimen, pt takes current medications as prescribed and can verbalize side effects of these medications. ) Tobacco Use Tobacco Use: Cigarettes How long ago did you quit using tobacco products?: Less than 6 months ago How many cigarettes do you smoke per day?: 1 (pt has stopped smoking, pt previously smoked less than 1 pack a day) Years Smokin Do you use smokeless tobacco?: No Outcomes/Goals: Smoking cessation achieved or maintained by discharge and Identify aids/strategies for achieving smoking cessation by session 6 Interventions/plan: Instruct on effects of smoking & provide smoking cessation resource, Assist pt to set quit date & provide encouragement, Assist pt to develop strategies to achieve/maintain quit date and Assist pt w/nicotine replacement & medication for cessation success 30-day Reassessments:: Met Reassessment Notes & Comments:: Pt continues to not smoke, pt has developed strategies to assist in maintaining her quit date. Hypertension Hypertension Diagnosis:: Hypertension ICD-10 I10 Resting Blood Pressure:: 110/64 [employer] Hypertension Guidelines Peak Exercise Blood Pressure:: 126/68 Outcomes/Goals: Able to verbalize/achieve optimal blood pressure <130/80 and Incorporates diet changes & exercise for blood pressure control by DC Interventions/plan: Instruct on optimal blood pressure, hypertension & medications and Instruct on effects of sodium, alcohol, stress, exercise &hypertension 30 day Reassessments:: Progressing Reassessment Notes & Comments:: Pt currently taking all bp medications as prescribed and resting BP is below goal of 120/80 with current medication regimen, pt verbalizes understanding of diet changes and exercise regimen have positive effects on blood pressure control. Tobacco Cessation Referral Smoking Cessation Referral:: No Individual Education/Counseling:: No Education Schedule Given:: No Core - Final Assessment Hypertension [employer] Hypertension Guidelines Reassessment Notes & Comments:: Pt currently taking all bp medications as prescribed and resting BP is below goal of 120/80 with current medication regimen, pt verbalizes understanding of diet changes and exercise regimen have positive effects on blood pressure control. Core - 90 Day Assessment Hypertension [employer] Hypertension Guidelines Reassessment Notes & Comments:: Pt currently taking all bp medications as prescribed and resting BP is below goal of 120/80 with current medication regimen, pt verbalizes understanding of diet changes and exercise regimen have positive effects on blood pressure control. Psychosocial - 30-Day Assess VIsit Date of Eval: 12/24/23 Session #:: 7 History of previous Mental disease:: Yes History of Emotional Disorders: Anxious and Depression Self-reported stressors Other/Comments:: Family and Recent Illness Target Goals Target Goals Psychosocial Test Tool Used:: PHQ-9 Questionnaire Self-reported stress:: family, recent illness phq-9 Severity See PHQ-9 Score: 11 Total Score:: 11 Referral to Behavioral Health PS - Interventions: Yes: Attend Stress Management Classes and No: Referral to Behavioral Health if PHQ-9 score >9: (Pt already sees a psychiatrist and PCP ) Outcomes/Goals: See list Psychosocial Outcomes/Goals:: ID's personal stressors & 2 strategies to manage stress by discharge Intervention/Plan: See List Interventions/Plan:: Assess stressors,coping strategies & signs of derpression on admission, Instruct/assist pt to develop coping & personal stress Mgt strategies, Refer to Behavioral Health if appropriate, Refer to Physician if appropriate and Instruct patient to recognize signs & symptoms of depression 30-day Reassessments: 30 day Reassessments:: Progressing Reassessment Notes & Comments:: Pt already sees her PCP and psychiatrist on a regular bases to assist with her mental health needs and medications. Pt attending classes on stress management and developing coping mechanisms. Psychosocial - 60-Day Assess Target Goals Target Goals Referral to Behavioral Health PS - Interventions: Yes: Attend Stress Management Classes and No: Referral to Behavioral Health if PHQ-9 score >9: (Pt already sees a psychiatrist and PCP ) Outcomes/Goals: See list Psychosocial Outcomes/Goals:: ID's personal stressors & 2 strategies to manage stress by discharge Psychosocial - 90-Day Assess Target Goals Target Goals Referral to Behavioral Health PS - Interventions: Yes: Attend Stress Management Classes and No: Referral to Behavioral Health if PHQ-9 score >9: (Pt already sees a psychiatrist and PCP ) Psychosocial - Final Assessmen Target Goals Target Goals Referral to Behavioral Health PS - Interventions: Yes: Attend Stress Management Classes and No: Referral to Behavioral Health if PHQ-9 score >9: (Pt already sees a psychiatrist and PCP ) Nutrition - 90-Day Assessment Weight Mgt (Other Care) Height: 5 ft 6 in Weight:: 251 lb BMI: 40.5 BMI (Report if calculated above): 40.5 Nutrition - Final Assessment Weight Mgt (Other Care) Height: 5 ft 6 in Weight:: 251 lb BMI: 40.5 BMI (Report if calculated above): 40.5
[2023-12-24 08:47] VITALS: BP 110/64
[2023-12-24 08:55] VITALS: BMI 40.5
[2023-12-24 09:06] VITALS: BP 110/64
== END 2024-01-21 23:59 ==
LOC: CR 15:15
PROVIDERS: PCP Internal Medicine; Referring Provider Specialist; Visit Provider Specialist
DX: I25.10 Atherosclerotic heart disease of native coronary artery without angina pectoris (principal); I21.02 ST elevation (STEMI) myocardial infarction involving left anterior descending coronary artery; Z95.5 Presence of coronary angioplasty implant and graft
CPT/HCPCS: 93798

== ENCOUNTER 2024-02-12 15:15 | Outpatient (RCR) | payer MEDICAID, SELFPAY ==
[2023-12-24 08:55] VITALS: BMI 40.5
[2024-01-22 00:15] VITALS: BP 110/64
--- NOTE | 2024-01-26 07:43 | PCM.CR.ITP ---
Exercise - Initial Assessment Physician Prescribed Exercise Modalities: SciFit Stepper, SciFit Pro-II Ergometer and SciFit Lateral [employer] Nutrition - Initial Assessment Weight Mgt (Other Care) Height: 5 ft 6 in Weight:: 254 lb BMI: 41.0 Core - Initial Assessment Hypertension Resting Blood Pressure:: 106/64 [employer] Hypertension Guidelines Psychosocial - Initial Assess Target Goals Target Goals Referral to Behavioral Health PS - Interventions: Yes: Attend Stress Management Classes Patient Health Questionnaire PHQ-9 Screening 60-Day Re-eval Assessment: 1. Little interest or pleasure in doing things: More than half the days 2. Feeling down, depressed, or hopeless: Not at all 3. Trouble falling or staying asleep, or sleeping too much: Nearly every day 4. Feeling tired or having little energy: Nearly every day 5. Poor appetite or overeating: Nearly every day 6. Feeling bad about yourself -- or that you are a failure or have let yourself or your family down: Not at all 7. Trouble concentrating on things, such as reading the newspaper or watching television: Not at all 8. Moving or speaking so slowly that other people could have noticed. Or the opposite - being so fidgety or restless that you have been moving around a lot more than usual: Not at all 9. Thoughts that you would be better off , or of hurting yourself in some way: Not at all How difficult have these problems made it for you to do your work, take care of things at home, or get along with other people?: Somewhat difficult Total Score: 11 Self-Efficacy 6-Item Scale 60-Day Re-eval Assessment: We would like to know how confident you are in doing certain activities. Please select your confidence level for: Fatigue Select Number: 1 Physical Discomfort or Pain Select Number: 4 Emotional Distress Select Number: 4 Other Symptoms or Health Problems Select Number: 4 Different Tasks and Activities Select Number: 4 Medication Select Number: 7 Total Score:: 4 Nutrition Survey Nutrition Survey Instructions Scoring Instructions Exercise - 30-day Assessment Physician Prescribed Exercise Modalities: SciFit Stepper, SciFit Pro-II Ergometer and SciFit Lateral [place] Exercise - 60-day Assessment Visit Date of Eval: 01/26/24 Session #:: 13 Physician Prescribed Exercise Modalities: SciFit Stepper, SciFit Pro-II Ergometer and SciFit Lateral [place] Frequency: 3x/week for 12 weeks [36 sessions] Intensity: 60-80% of age predicted maximum heart rate reserve Duration: 30 - 45 minutes Current METSs:: 3 Target Heart Rate:: 104-131 Current RPE:: 12-13 Maximum Excercise HR:: 89 Resting Blood Pressure: 106/64 Maximum Exercise Blood Pressure: 124/64 EKG Type: SR with BBB. Outcomes & Goals Goals:: Verbalizes understanding of THR, RPE & goal METS by session 6, Documents in home exercise log/reports 30 min aerobic 5 day/wk by DC, Demonstrates accurate pulse taking by DC and Other additional outcome/goals: see below Intervention & Plan Exercise Program Goals: Instruct on personal THR & RPE, Instruct on MET level & personal MET goal, Show patient to take own pulse /validate performance until accurate, Instruct on home exercise and Other additional plan/int 30-day Reassessments 30 day Reassessments:: Progressing Reassessment Notes & Comments:: Pt instructed to walk at home on off days and on days when she misses CR due to her job. Pt encouraged to have walking friend to hold her accountable. Physical Activity Home Exercise Physical Activity - Home Exercise: Safe Exercise, Warm-up, Self-monitoring, Cool-Down, Home Exercise > 30 min Daily and Sitting Time <3 hours/daily Outcomes & Goals Outcomes/Goals: Demonstrates correct Warm-up/exercise Cool-Down (S3) if = 2.5 METs, Verbalizes symptoms of exercise intolerance by Session 3 (S3), Demonstrate safe equipment use (S3) & follows exercise prescrition (6) and Other: See below Intervention & Plan Plan/Intervention: Instruct warm-up & cool-down if exercising at > 2 METs, Instruct on symptoms of exercise intolerance & actions to take, Instruct & monitor on saf, Assess intial functional capacity & safety risk and Other See below 30-day Reassessments 30 day Reassessments:: Progressing Reassessment Notes & Comments:: Cool down encouraged and demonstrated. Pt is able to return demonstration. Exercise - 90-day Assessment Physician Prescribed Exercise Modalities: SciFit Stepper, SciFit Pro-II Ergometer and SciFit Lateral [place] Exercise - Final/Discharge Physician Prescribed Exercise Modalities: SciFit Stepper, SciFit Pro-II Ergometer and SciFit Lateral [place] Nutrition - 30-Day Assessment Weight Mgt (Other Care) Height: 5 ft 6 in Weight:: 254 lb BMI: 41.0 Nutrition - 60-Day Assessment Program Goals Nutrition Program Goals Patient has diagnosis of Hyperlipidemia (ICD E78)?: No Visit Date of Eval: 01/26/24 Session #:: 13 Cholesterol/Lipids (Other Core Measures) Determine presence & major risk factors that modify LDL goal: Hypertension or hypertensive medication, Low HDL cholesterol <40 mg/dL*, Family history of premature CHD in Male < 55 years: female <65 yearsFa and Age men > 45 years; women >/= 55 years Outcomes/Goals: Pt IDs own risk factors & lifestyle modifications by Session 10, Verbalizes symptoms of angina & response by session 3., Pt independently manages and Other Additional Outcomes/Goals: Intervention/Plan: Advocate for lipid panel cholesterol medication if applicable, Instruct on personal lipid levels & lipid goals/NCEP guidelines, Instruct on cholesterol and Other additional plan/int 30-day Reassessments:: Progressing Reassessment Notes & Comments:: risk factors discussed and ways to minimize risk factors Weight Mgt (Other Care) Height: 5 ft 6 in Weight:: 254 lb BMI: 41.0 Diagnosis Overweight/Obesity BMI> 30% ICD-10 E66: Yes Diagnosis High BMI/Morbid Obesity BMI> 35% ICD-10 Z68: Yes Outcomes/Goals: Pt sets, maintains & shows weight loss goal & trend during rehab and Other additional outcomes/goals Intervention/Plan: Instruct on ideal BMI & set weight loss goal w/patient, Assist pt to ID & incorporate diet changes for weight loss by S9, Refer to Structured Weight Loss program as appropriate, Encourage goal of using 250-300dcal per session for weight loss and Other additional plan/interventions 30 day Reassessments:: Progressing Reassessment Notes & Comments:: Pt is encouraged to see a change person 1 on . Healthy Eating Habits Will attend diet classes:: Yes Outcomes/Goals:: Consume diet rich in vegs,fruits,whole grain/high fiber,fish,lean meat, Limit sat/trans fats,cholesterol & added salts & sugars and Other additional outcome/goals: Intervention/Plan:: Assess current eating habits and Other Additional plan/interventions 30-day Reassessments:: Progressing Reassessment Notes & Comments:: Pt is to attend nutrition class this Thursday Education Gave educational materials for:: Signs & symptoms of hypoglycemia, Signs & symptoms of hyperglycemia, Relate diabetes to coronary artery disease and Healthy eating Core - Final Assessment Hypertension Resting Blood Pressure:: 106/64 [employer] Hypertension Guidelines Core - 60-Day Assessment Visit Date of Eval: 01/26/24 Session #:: 13 Medication Compliance Preventative Medication(s):: Aspirin, Clopidogrel/P2Y12 inhibit, Statin/lipid and Beta zahra H/O mental health issues: depression, anxiety, or addiction?: Yes Doesn?t believe in the benefits of treatment?: No Believes medications are unnecessary or harmful?: No Has a concern about medication side effects?: No Expresses concern over the cost of medications?: No Outcomes/Goals: Verbalizes medications,desired effect & common side effects @ DC, Pt self-reports following medication regimen, Keeps card in wallet w/medications listed by DC and Other additional outcome/goals: Interventions/plans: Instruct on medication effects & side effects, Review medication list w/patient every two weeks, Instruct importance of taking meds as ordered & assist problem solving and Other additional 30-day Reassessments:: Met Reassessment Notes & Comments:: Pt is taking meds as prescribed. Tobacco Use Tobacco Use: Cigarettes How long ago did you quit using tobacco products?: Less than 6 months ago (pt has stopped smoking and is doing well) Do you use smokeless tobacco?: No 30-day Reassessments:: Met Reassessment Notes & Comments:: pt is not smoking at this time Hypertension Hypertension Diagnosis:: Hypertension ICD-10 I10 Resting Blood Pressure:: 106/64 Resting Blood Pressure:: 106/64 [place] [employer] Hypertension Guidelines Peak Exercise Blood Pressure:: 124/64 Outcomes/Goals: Able to verbalize/achieve optimal blood pressure <130/80, Incorporates diet changes & exercise for blood pressure control by DC and Other additional outcomes/goals Interventions/plan: Instruct on optimal blood pressure, hypertension & medications, Instruct on effects of sodium, alcohol, stress, exercise &hypertension and Other additional plan/interventions 30 day Reassessments:: Met Reassessment Notes & Comments:: BP's are within AHA's guidelines Tobacco Cessation Referral Smoking Cessation Referral:: No Individual Education/Counseling:: No Education Schedule Given:: Yes Psychosocial - 30-Day Assess Target Goals Target Goals Referral to Behavioral Health PS - Interventions: Yes: Attend Stress Management Classes Outcomes/Goals: See list Psychosocial Outcomes/Goals:: ID's personal stressors & 2 strategies to manage stress by discharge and Other Additional outcome/goals: Psychosocial - 60-Day Assess VIsit Date of Eval: 01/26/24 Session #:: 13 History of previous Mental disease:: Yes History of Emotional Disorders: Anxious and Depression (pt sees a psychiatrist) Target Goals Target Goals Psychosocial Test Tool Used:: Ferrans Power QOL Cardiac and PHQ-9 Questionnaire phq-9 Severity Referral to Behavioral Health PS - Interventions: Yes: Attend Stress Management Classes Outcomes/Goals: See list Psychosocial Outcomes/Goals:: ID's personal stressors & 2 strategies to manage stress by discharge and Other Additional outcome/goals: Intervention/Plan: See List Interventions/Plan:: Assess stressors,coping strategies & signs of derpression on admission, Instruct/assist pt to develop coping & personal stress Mgt strategies, Refer to Behavioral Health if appropriate, Refer to Physician if appropriate, Instruct patient to recognize signs & symptoms of depression, Instruct patient to recog and Other additional plan/intervention 30-day Reassessments: 30 day Reassessments:: Progressing Reassessment Notes & Comments:: pt sees a psychiatrist and is on medication Psychosocial - 90-Day Assess Target Goals Target Goals Referral to Behavioral Health PS - Interventions: Yes: Attend Stress Management Classes Psychosocial - Final Assessmen Target Goals Target Goals Referral to Behavioral Health PS - Interventions: Yes: Attend Stress Management Classes Nutrition - 90-Day Assessment Weight Mgt (Other Care) Height: 5 ft 6 in Weight:: 254 lb BMI: 41.0 Nutrition - Final Assessment Weight Mgt (Other Care) Height: 5 ft 6 in Weight:: 254 lb BMI: 41.0
[2024-01-26 07:49] VITALS: BP 106/64
[2024-01-26 08:26] VITALS: BMI 41.0
[2024-01-26 08:59] VITALS: BP 106/64
== END 2024-02-20 23:59 ==
LOC: CR 15:15
PROVIDERS: PCP Internal Medicine; Referring Provider Specialist; Visit Provider Specialist
DX: Z95.5 Presence of coronary angioplasty implant and graft (principal); I21.02 ST elevation (STEMI) myocardial infarction involving left anterior descending coronary artery; I25.10 Atherosclerotic heart disease of native coronary artery without angina pectoris
CPT/HCPCS: 93798

== ENCOUNTER 2024-02-22 14:09 | Outpatient (RCR) | payer MEDICAID, SELFPAY ==
[2024-02-21 00:41] VITALS: BP 106/64; BP 110/64; BMI 40.5
--- NOTE | 2024-02-23 07:38 | CR.ITP_ITS ---
Exercise - Initial Assessment Physician Prescribed Exercise Modalities: SciFit Stepper, SciFit Pro-II Ergometer and SciFit Lateral [place] Nutrition - Initial Assessment Weight Mgt (Other Care) Height: 5 ft 6 in Weight:: 254 lb BMI: 41.0 Psychosocial - Initial Assess Target Goals Target Goals Referral to Behavioral Health PS - Interventions: Yes: Attend Stress Management Classes Patient Health Questionnaire PHQ-9 Screening 90-Day Re-eval Assessment: 1. Little interest or pleasure in doing things: More than half the days 2. Feeling down, depressed, or hopeless: Not at all 3. Trouble falling or staying asleep, or sleeping too much: Nearly every day 4. Feeling tired or having little energy: Nearly every day 5. Poor appetite or overeating: Nearly every day 6. Feeling bad about yourself -- or that you are a failure or have let yourself or your family down: Not at all 7. Trouble concentrating on things, such as reading the newspaper or watching television: Not at all 8. Moving or speaking so slowly that other people could have noticed. Or the opposite - being so fidgety or restless that you have been moving around a lot more than usual: Not at all 9. Thoughts that you would be better off , or of hurting yourself in some way: Not at all How difficult have these problems made it for you to do your work, take care of things at home, or get along with other people?: Somewhat difficult Total Score: 11 Self-Efficacy 6-Item Scale 90-Day Re-eval Assessment: We would like to know how confident you are in doing certain activities. Please select your confidence level for: Fatigue Select Number: 1 Physical Discomfort or Pain Select Number: 4 Emotional Distress Select Number: 4 Other Symptoms or Health Problems Select Number: 4 Different Tasks and Activities Select Number: 4 Medication Select Number: 7 Total Score:: 4 Nutrition Survey Nutrition Survey Instructions Scoring Instructions Exercise - 30-day Assessment Physician Prescribed Exercise Modalities: SciFit Stepper, SciFit Pro-II Ergometer and SciFit Lateral [place] Exercise - 60-day Assessment Physician Prescribed Exercise Modalities: SciFit Stepper, SciFit Pro-II Ergometer and SciFit Lateral [place] Exercise - 90-day Assessment Visit Date of Eval: 02/23/24 Session #:: 16 Physician Prescribed Exercise Modalities: SciFit Stepper, SciFit Pro-II Ergometer and SciFit Lateral [place] Frequency: 3x/week for 12 weeks [36 sessions] Intensity: 60-80% of age predicted maximum heart rate reserve Duration: 30 - 45 minutes Current METSs:: 3.2 Target Heart Rate:: 104-131 Current RPE:: 13-14 Maximum Excercise HR:: 90 Resting Blood Pressure: 110/70 Maximum Exercise Blood Pressure: 120/74 EKG Type: SR with BBB Outcomes & Goals Goals:: Verbalizes understanding of THR, RPE & goal METS by session 6, Documents in home exercise log/reports 30 min aerobic 5 day/wk by DC, Demonstrates accurate pulse taking by DC and Other additional outcome/goals: see below Intervention & Plan Exercise Program Goals: Instruct on personal THR & RPE, Instruct on MET level & personal MET goal, Show patient to take own pulse /validate performance until accurate, Instruct on home exercise and Other additional plan/int 30-day Reassessments 30 day Reassessments:: Progressing Reassessment Notes & Comments:: Pt encouraged to walk at home when she is unable to attend rehab. Pt encouraged to keep an exercise log book. Physical Activity Home Exercise Physical Activity - Home Exercise: Safe Exercise, Warm-up, Self-monitoring, Cool -Down, Home Exercise > 30 min Daily and Sitting Time <3 hours/daily Outcomes & Goals Outcomes/Goals: Demonstrates correct Warm-up/exercise Cool-Down (S3) if = 2.5 METs, Verbalizes symptoms of exercise intolerance by Session 3 (S3), Demonstrate safe equipment use (S3) & follows exercise prescrition (6) and Other: See below Intervention & Plan Plan/Intervention: Instruct warm-up & cool-down if exercising at > 2 METs, Instruct on symptoms of exercise intolerance & actions to take, Instruct & monitor on saf, Assess intial functional capacity & safety risk and Other See below 30-day Reassessments 30 day Reassessments:: Progressing Reassessment Notes & Comments:: Pt instructed on at home safe exercise. Pt demonstrates understanding. Exercise - Final/Discharge Physician Prescribed Exercise Modalities: SciFit Stepper, SciFit Pro-II Ergometer and SciFit Lateral [place] Nutrition - 30-Day Assessment Weight Mgt (Other Care) Height: 5 ft 6 in Weight:: 254 lb BMI: 41.0 Nutrition - 60-Day Assessment Weight Mgt (Other Care) Height: 5 ft 6 in Weight:: 254 lb BMI: 41.0 Core - 30-Day Assessment Hypertension [place] [employer] Hypertension Guidelines Reassessment Notes & Comments:: Pt's BP's are within AHA's normal limits. Core - Final Assessment Hypertension [place] [employer] Hypertension Guidelines Reassessment Notes & Comments:: Pt's BP's are within AHA's normal limits. Core - 90 Day Assessment Visit Date of Eval: 02/23/24 Session #:: 16 Medication Compliance Preventative Medication(s):: Aspirin, Clopidogrel/P2Y12 inhibit, Statin/lipid and Beta zahra H/O mental health issues: depression, anxiety, or addiction?: Yes Doesn?t believe in the benefits of treatment?: No Believes medications are unnecessary or harmful?: No Has a concern about medication side effects?: No Expresses concern over the cost of medications?: No Outcomes/Goals: Verbalizes medications,desired effect & common side effects @ DC, Pt self-reports following medication regimen, Keeps card in wallet w/medications listed by DC and Other additional outcome/goals: Interventions/plans: Instruct on medication effects & side effects, Review medication list w/patient every two weeks, Instruct importance of taking meds as ordered & assist problem solving and Other additional 30-day Reassessments:: Met Reassessment Notes & Comments:: Pt is taking her meds as prescribed Tobacco Use Tobacco Use: Cigarettes How long ago did you quit using tobacco products?: Greater than or equal to 6 months ago 30-day Reassessments:: Met Reassessment Notes & Comments:: Pt has stopped smoking and is doing well Hypertension Hypertension Diagnosis:: Hypertension ICD-10 I10 Resting Blood Pressure:: 110/70 [place] [employer] Hypertension Guidelines Peak Exercise Blood Pressure:: 120/74 Outcomes/Goals: Able to verbalize/achieve optimal blood pressure <130/80, Incorporates diet changes & exercise for blood pressure control by DC and Other additional outcomes/goals Interventions/plan: Instruct on optimal blood pressure, hypertension & medications, Instruct on effects of sodium, alcohol, stress, exercise &hypertension and Other additional plan/interventions 30 day Reassessments:: Met Reassessment Notes & Comments:: Pt's BP's are within AHA's normal limits. Tobacco Cessation Referral Smoking Cessation Referral:: No Individual Education/Counseling:: No Education Schedule Given:: Yes Psychosocial - 30-Day Assess Target Goals Target Goals Referral to Behavioral Health PS - Interventions: Yes: Attend Stress Management Classes Psychosocial - 60-Day Assess Target Goals Target Goals Referral to Behavioral Health PS - Interventions: Yes: Attend Stress Management Classes Psychosocial - 90-Day Assess VIsit Date of Eval: 02/23/24 Session #:: 16 History of previous Mental disease:: Yes History of Emotional Disorders: Anxious and Depression (pt sees a psychiatrist.) Target Goals Target Goals Psychosocial Test Tool Used:: Ferrans Power QOL Cardiac and PHQ-9 Questionnaire phq-9 Severity Referral to Behavioral Health PS - Interventions: Yes: Attend Stress Management Classes Outcomes/Goals: See list Psychosocial Outcomes/Goals:: ID's personal stressors & 2 strategies to manage stress by discharge and Other Additional outcome/goals: Intervention/Plan: See List Interventions/Plan:: Assess stressors,coping strategies & signs of derpression on admission, Instruct/assist pt to develop coping & personal stress Mgt strategies, Refer to Behavioral Health if appropriate, Refer to Physician if appropriate, Instruct patient to recognize signs & symptoms of depression, Instruct patient to recog and Other additional plan/intervention 30-day Reassessments: 30 day Reassessments:: Met Reassessment Notes & Comments:: Pt sees a psychiatrist for anxiety and depression Psychosocial - Final Assessmen Target Goals Target Goals Referral to Behavioral Health PS - Interventions: Yes: Attend Stress Management Classes Nutrition - 90-Day Assessment Program Goals Nutrition Program Goals Patient has diagnosis of Hyperlipidemia (ICD E78)?: Yes Visit Date of Eval: 02/23/24 Session #:: 16 Cholesterol/Lipids (Other Core Measures) Determine presence & major risk factors that modify LDL goal: Hypertension or hypertensive medication, Low HDL cholesterol <40 mg/dL*, Family history of premature CHD in Male < 55 years: female <65 yearsFa and Age men > 45 years; women >/= 55 years Outcomes/Goals: Pt IDs own risk factors & lifestyle modifications by Session 10, Verbalizes symptoms of angina & response by session 3., Pt independently manages and Other Additional Outcomes/Goals: Intervention/Plan: Advocate for lipid panel cholesterol medication if applicable, Instruct on personal lipid levels & lipid goals/NCEP guidelines, Instruct on cholesterol and Other additional plan/int 30-day Reassessments:: Met Reassessment Notes & Comments:: symptoms of angina reviewed in exercise class. How to take nitro explained. Pt demonstrates understanding. Diabetes (Other Core Measures) Diabetes Type: Not Applicable Weight Mgt (Other Care) Height: 5 ft 6 in Weight:: 254 lb BMI: 41.0 Diagnosis Overweight/Obesity BMI> 30% ICD-10 E66: Yes Diagnosis High BMI/Morbid Obesity BMI> 35% ICD-10 Z68: Yes Outcomes/Goals: Pt sets, maintains & shows weight loss goal & trend during rehab and Other additional outcomes/goals Intervention/Plan: Instruct on ideal BMI & set weight loss goal w/patient, Assist pt to ID & incorporate diet changes for weight loss by S9, Refer to Structured Weight Loss program as appropriate, Encourage goal of using 250- 300dcal per session for weight loss and Other additional plan/interventions 30 day Reassessments:: Progressing Reassessment Notes & Comments:: Pt has attended nutrition class. Pt understands a heart healthy diet. Healthy Eating Habits Will attend diet classes:: Yes Outcomes/Goals:: Consume diet rich in vegs,fruits,whole grain/high fiber,fish,lean meat, Limit sat/trans fats,cholesterol & added salts & sugars and Other additional outcome/goals: Intervention/Plan:: Assess current eating habits and Other Additional plan/interventions 30-day Reassessments:: Progressing Reassessment Notes & Comments:: Pt has attended nutrition class. Pt understands a heart healthy diet. Education Gave educational materials for:: Signs & symptoms of hypoglycemia, Signs & symptoms of hyperglycemia, Relate diabetes to coronary artery disease and Healthy eating Nutrition - Final Assessment Weight Mgt (Other Care) Height: 5 ft 6 in Weight:: 254 lb BMI: 41.0
[2024-02-23 07:54] VITALS: BP 110/70; BMI 41.0
[2024-02-23 08:05] VITALS: BP 110/70
== END 2024-03-22 23:59 ==
LOC: CR 14:09
PROVIDERS: PCP Internal Medicine; Referring Provider Specialist; Visit Provider Specialist
DX: Z95.5 Presence of coronary angioplasty implant and graft (principal); I21.02 ST elevation (STEMI) myocardial infarction involving left anterior descending coronary artery; I25.10 Atherosclerotic heart disease of native coronary artery without angina pectoris
CPT/HCPCS: 93798

== ENCOUNTER → 2024-04-25 | Outpatient (CLI) | payer MEDICAID, SELFPAY ==
[2024-04-05 15:57] VITALS: BMI 41.0
[2024-04-25 16:53] LABS: Absolute Lymphocyte Count 1.87 X10^3/uL (0.83-4.51); Absolute Neutrophil Count 4.1 X10^3/uL (2.0-7.7); Basophil# 0.04 X10^3/uL; Basophil% 0.6 % (0-1); Eosinophil# 0.16 X10^3/uL; Eosinophils% 2.4 % (0-5); Hemoglobin 10.6 g/dL (12.0-15.0); Lymphocyte # 1.87 X10^3/ul (0.83-4.51); Lymphocyte % 28.1 % (19-41); Mean Corp Hgb Conc 29.4 g/dL (32-36); Mean Corpuscular Hgb 22.6 pg (27.0-32.0); Mean Corpuscular Volume 76.6 fL (81-99); Mean Platelet Vol. 10.8 fl (6.2-12.0); Monocyte# 0.46 X10^3/uL; Monocyte% 6.9 % (0-10); NRBC Flagged by Analyzer 0 % (0-5); Neutrophil # 4.09 X10^3/uL (2.7-7.7); Neutrophil % 61.5 % (47-70); Platelet Count 334 K/mm3 (150-450); RBC Distribution Width CV 15.7 % (11.6-14.6); RBC Distribution Width SD 43.1 fl (35.1-43.9); White Blood Count 6.7 K/mm3 (4.4-11.0)
[2024-04-25 17:10] LABS: ALB/GLOB Ratio 0.9 RATIO (0.9-2.4); AST(SGOT) 17 U/L (15-37); Alanine Aminotransfer ALT/SGPT 31 U/L (13-56); Albumin, Serum 3.7 g/dL (3.2-5.0); Alkaline Phosphatase 118 U/L (45-117); Anion Gap 8 (5-15); BUN 10 mg/dL (7-18); BUN/Creat Ratio 10.2 RATIO (10-20); Bilirubin, Direct 0.14 mg/dL (0.00-0.30); Calcium,Total 8.9 mg/dL (8.5-10.1); Chloride 106 mmol/L (98-107); Cholesterol 146 mg/dL (200); Creatinine, Serum 0.98 mg/dL (0.55-1.02); EST Glomerular Filtration Rate 65 mL/min (>60); Est Glom Filt Rate - Afr Amer 78 mL/min (>60); Globulin 4.1 g/dL (2.2-4.2); Glucose 103 mg/dL (74-106); High Density Lipoprotein 71 mg/dL; Potassium 3.7 mmol/L (3.5-5.1); Protein, Total 7.8 g/dL (6.4-8.2); Sodium Level 137 mmol/L (136-145); Triglycerides 71 mg/dL; Very Low Density Lipoprotein 14 mg/dL (5-40)
[2024-04-27 15:53] LABS: Ferritin 7 ng/mL (8-252); Iron 17 ug/dL (50-170); Iron Binding Capacity,Total 484 ug/dL (250-450)
== END | disposition home or self-care (01) ==
LOC: BIMLAB 14:52
PROVIDERS: PCP Internal Medicine; Referring Provider Internal Medicine; Visit Provider Internal Medicine
DX: I10 Essential (primary) hypertension (principal); E78.2 Mixed hyperlipidemia; D50.9 Iron deficiency anemia, unspecified; F41.9 Anxiety disorder, unspecified; F32.A Depression, unspecified
CPT/HCPCS: 36415; 80053; 80061; 82248; 82728; 83540; 83550; 85025

== ENCOUNTER 2024-05-23 14:27 | Outpatient (CLI) | payer MEDICAID, SELFPAY ==
[2024-04-05 15:57] VITALS: BMI 41.0
[2024-05-23 14:42] VITALS: BP 130/63; PULSE 77; RESP 16; TEMP 35.6; O2SAT 98
[2024-05-23] MEDS: Iron Sucrose Complex 200 MG in 0.9% Normal Saline (100mL Bag) 100 ML 220 MG IV (14:58)
[2024-05-23] MEDS: 0.9% NaCl Peripheral Flush Adult/Peds IV (15:05)
[2024-05-23] MEDS: 0.9% Normal Saline (100mL Bag) 100 ML 15 ML IV (15:05)
[2024-05-23 15:56] VITALS: BP 124/64; PULSE 68; RESP 16; TEMP 36; O2SAT 100
== END 2024-05-23 23:59 | disposition home or self-care (01) ==
LOC: MEDOUTP 14:28
PROVIDERS: PCP Internal Medicine; Referring Provider Internal Medicine; Visit Provider Internal Medicine
DX: D50.0 Iron deficiency anemia secondary to blood loss (chronic) (principal)
CPT/HCPCS: 96365; J1756; A4216

== ENCOUNTER 2024-05-30 14:25 | Outpatient (CLI) | payer MEDICAID, SELFPAY ==
[2024-04-05 15:57] VITALS: BMI 41.0
[2024-05-30 15:07] VITALS: BP 126/73; PULSE 66; RESP 16; TEMP 35.8; O2SAT 97; BMI 42.7
[2024-05-30] MEDS: Iron Sucrose Complex 200 MG in 0.9% Normal Saline (100mL Bag) 100 ML 220 MG IV (15:20)
[2024-05-30 16:12] VITALS: BP 126/65; PULSE 71
== END 2024-05-30 23:59 | disposition home or self-care (01) ==
LOC: MEDOUTP 14:25
PROVIDERS: PCP Internal Medicine; Referring Provider Internal Medicine; Visit Provider Internal Medicine
DX: D50.9 Iron deficiency anemia, unspecified (principal)
CPT/HCPCS: 96365; J1756; A4216

== ENCOUNTER 2024-06-06 14:26 | Outpatient (CLI) | payer MEDICAID, SELFPAY ==
[2024-04-05 15:57] VITALS: BMI 41.0
[2024-06-06 14:43] VITALS: BP 137/70; PULSE 67; RESP 16; TEMP 35.8; O2SAT 98; BMI 41.9
[2024-06-06] MEDS: 0.9% NaCl Peripheral Flush Adult IV (14:51)
[2024-06-06] MEDS: 0.9% Normal Saline (100mL Bag) 100 ML 15 ML IV (14:51)
[2024-06-06] MEDS: Iron Sucrose Complex 200 MG in 0.9% Normal Saline (100mL Bag) 100 ML 220 MG IV (14:51)
[2024-06-06 15:32] VITALS: BP 106/51; PULSE 65; RESP 16; TEMP 35.9; O2SAT 98
== END 2024-06-06 23:59 | disposition home or self-care (01) ==
LOC: MEDOUTP 14:26
PROVIDERS: PCP Internal Medicine; Referring Provider Internal Medicine; Visit Provider Internal Medicine
DX: D50.9 Iron deficiency anemia, unspecified (principal)
CPT/HCPCS: 96365; J1756; A4216

== ENCOUNTER 2024-06-13 14:16 | Outpatient (CLI) | payer MEDICAID, SELFPAY ==
[2024-04-05 15:57] VITALS: BMI 41.0
[2024-06-13 14:33] VITALS: BP 132/64; PULSE 71; RESP 14; TEMP 36.2; O2SAT 97; BMI 42.9
[2024-06-13] MEDS: Iron Sucrose Complex 200 MG in 0.9% Normal Saline (100mL Bag) 100 ML 220 MG IV (14:49)
[2024-06-13 15:34] VITALS: BP 124/57; PULSE 66
== END 2024-06-13 23:59 | disposition home or self-care (01) ==
LOC: MEDOUTP 14:16
PROVIDERS: PCP Internal Medicine; Referring Provider Internal Medicine; Visit Provider Internal Medicine
DX: D50.9 Iron deficiency anemia, unspecified (principal)
CPT/HCPCS: 96365; J1756; A4216

== ENCOUNTER 2024-06-20 14:09 | Outpatient (CLI) | payer MEDICAID, SELFPAY ==
[2024-04-05 15:57] VITALS: BMI 41.0
[2024-06-20 14:14] VITALS: BP 138/71; PULSE 70; RESP 16; TEMP 35.7; O2SAT 98
[2024-06-20] MEDS: 0.9% NaCl Peripheral Flush Adult IV (14:31)
[2024-06-20] MEDS: 0.9% NaCl IVPB Med Flush (100mL) 15 ML IV (14:32)
[2024-06-20] MEDS: Iron Sucrose Complex 200 MG in 0.9% Normal Saline (100mL Bag) 100 ML 220 MG IV (14:34)
[2024-06-20 15:20] VITALS: BP 132/64; PULSE 62
== END 2024-06-20 23:59 | disposition home or self-care (01) ==
LOC: MEDOUTP 14:09
PROVIDERS: PCP Internal Medicine; Referring Provider Internal Medicine; Visit Provider Internal Medicine
DX: D50.9 Iron deficiency anemia, unspecified (principal)
CPT/HCPCS: 96365; J1756; A4216

== ENCOUNTER → 2024-08-01 | Outpatient (CLI) | payer MEDICAID, SELFPAY ==
[2024-04-05 15:57] VITALS: BMI 41.0
[2024-08-01 12:37] LABS: Absolute Lymphocyte Count 1.11 X10^3/uL (0.83-4.51); Absolute Neutrophil Count 8.9 X10^3/uL (2.0-7.7); Basophil# 0.02 X10^3/uL; Basophil% 0.2 % (0-1); Eosinophil# 0.01 X10^3/uL; Eosinophils% 0.1 % (0-5); Hematocrit 40.5 % (37-47); Hemoglobin 12.4 g/dL (12.0-15.0); Lymphocyte # 1.11 X10^3/ul (0.83-4.51); Lymphocyte % 10.5 % (19-41); Mean Corp Hgb Conc 30.6 g/dL (32-36); Mean Corpuscular Hgb 25.3 pg (27.0-32.0); Mean Corpuscular Volume 82.5 fL (81-99); Mean Platelet Vol. 11.1 fl (6.2-12.0); Monocyte# 0.47 X10^3/uL; Monocyte% 4.4 % (0-10); NRBC Flagged by Analyzer 0 % (0-5); Neutrophil # 8.91 X10^3/uL (2.7-7.7); Neutrophil % 84.3 % (47-70); Platelet Count 357 K/mm3 (150-450); RBC Distribution Width CV 17.9 % (11.6-14.6); RBC Distribution Width SD 54.1 fl (35.1-43.9); Red Blood Count 4.91 M/mm3 (4.2-5.4); White Blood Count 10.6 K/mm3 (4.4-11.0)
[2024-08-01 13:06] LABS: ALB/GLOB Ratio 1.4 RATIO (0.9-2.4); AST(SGOT) 13 U/L (<=31); Alanine Aminotransfer ALT/SGPT 14 U/L (<=34); Albumin, Serum 4.5 g/dL (3.5-5.0); Alkaline Phosphatase 107 U/L (35-104); Anion Gap 13 (5-15); BUN 10 mg/dL (4-19); BUN/Creat Ratio 13.4 RATIO (10-20); Calcium,Total 9.6 mg/dL (7.6-11.0); Carbon Dioxide 21.2 mmol/L (21.0-32.0); Chloride 105 mmol/L (98-108); Creatinine, Serum 0.73 mg/dL (0.70-1.20); EST Glomerular Filtration Rate 102 (>60); Ferritin 27 ng/mL (22-378); Globulin 3.2 g/dL (2.2-4.2); Glucose 147 mg/dL (70-99); Iron 181 ug/dL (50-170); Iron Binding Capacity,Total 394 ug/dL (250-450); Iron Binding Capacity,Unsat 213 ug/dL (228-428); Potassium 4.2 mmol/L (3.3-5.1); Protein, Total 7.7 g/dL (5.9-8.4); Sodium Level 139 mmol/L (133-145); Thyroid Stim Hormone (TSH) 0.846 uIU/mL (0.300-4.200); Total Bilirubin 0.29 mg/dL (0.00-1.30); Vitamin B12 313 pg/mL (180-914)
== END | disposition home or self-care (01) ==
LOC: BIMLAB 09:52
PROVIDERS: PCP Internal Medicine; Referring Provider Internal Medicine; Visit Provider Internal Medicine
DX: E78.2 Mixed hyperlipidemia (principal); D64.9 Anemia, unspecified; G62.9 Polyneuropathy, unspecified
CPT/HCPCS: 36415; 80053; 82607; 82728; 83540; 83550; 84439; 84443; 85025

== ENCOUNTER → 2024-08-16 | Outpatient (CLI) | payer MEDICAID, SELFPAY ==
[2024-04-05 15:57] VITALS: BMI 41.0
--- NOTE | 2024-08-16 15:23 | EMB_PTH ---
PATIENT: MIGUEL KELLY LOC: [facility] U#:[id number] AGE/SX: 49/F ROOM: RE08/16/[address]: ROSHAN Lewis : 1975 BED: DIS: 08/16/2024 SPEC #: [id number] RECD: 08/16/24 16:23 STATUS: ADELINA REQ #: [id number] THELMA: 08/16/24 15:[address]: Misti Williamson NP DEPT: SURGICAL PATHOLOGY RECD BY: Anshul De La Cruz ENTERED: 08/17/24 08:49 SP TYPE: ENDOM BX/C ROBERTO DR: Dr. Princess Baca MD Tissues: A - Endometrium, NOS Procedures: Surgery Specimen Level IV HEADER OPERATION: Endometrial biopsy PRE-OP DIAGNOSIS: Abnormal uterine bleeding TISSUE SUBMITTED: A- Endometrial lining MICROSCOPIC DIAGNOSIS A. Endometrium, biopsy: * Proliferative endometrium, mildly disordered. MICROSCOPIC DESCRIPTION Slides are reviewed. GROSS DESCRIPTION A. Received in formalin in a container labeled with the patient's name, date of , and with the accompanying paperwork indicating, EMB are multiple red-campa fragments of soft tissue admixed with blood and mucus measuring 2.8 x 1.7 x 0.6 cm in aggregate. Submitted in toto in A1-2. [facility] 08-17-2024 CPT: [id number]
== END | disposition home or self-care (01) ==
LOC: LABSPEC 16:16
PROVIDERS: PCP Internal Medicine; Referring Provider Nurse Practitioner Women's Health; Visit Provider Nurse Practitioner Women's Health
DX: N85.8 Other specified noninflammatory disorders of uterus (principal); N93.9 Abnormal uterine and vaginal bleeding, unspecified
CPT/HCPCS: 88305

== ENCOUNTER → 2024-08-22 | Outpatient (CLI) | payer MEDICAID, SELFPAY ==
[2024-04-05 15:57] VITALS: BMI 41.0
--- NOTE | 2024-08-22 15:32 | US_ITS ---
PROCEDURE: PELVIC W/ TRANSVAGINAL 08/22/2024 REASON FOR EXAM: [facility]UB TECHNIQUE: Transabdominal and transvaginal pelvic ultrasound. Color and spectral doppler analysis of the ovaries. COMPARISON: None. FINDINGS: Measurements: Uterus: 13.3 x 6.6 x 7.8 cm for volume of 355.4 mL Endometrial Thickness: 0.3 cm Right ovary: Not visualized due to shadowing bowel gas Left ovary: 4.7 x 2.6 x 3.3 cm for volume of 20.7 mL Uterus: Anteverted. There is a heterogeneous lesion at the uterine fundus measuring 3.4 x 4.4 x 5.0 cm, without significant internal vascularity. Nabothian cysts at the cervix. Endometrium: Poorly visualized Right ovary: Not visualized due to shadowing bowel gas Left ovary: Normal size and echotexture. Cul-de-sac: No free intraperitoneal fluid identified. DOPPLER: Color Doppler: Normal color flow doppler signal at the left ovary. Spectral Doppler: Normal arterial inflow and venous outflow signal at the left ovary. US/Pelvic w/ Transvaginal IMPRESSION: 1. Heterogeneous lesion at the uterine fundus measuring 5.0 cm, statistically likely to represent a leiomyoma. 2. Nonvisualization of the right ovary. Unremarkable left ovary. Reading Location: [facility]
== END | disposition home or self-care (01) ==
LOC: OPUS 15:29
PROVIDERS: PCP Internal Medicine; Referring Provider Nurse Practitioner Women's Health; Visit Provider Nurse Practitioner Women's Health
DX: N93.9 Abnormal uterine and vaginal bleeding, unspecified (principal)
CPT/HCPCS: 76830; 76856

== ENCOUNTER → 2024-08-31 | Outpatient (CLI) | payer MEDICAID, SELFPAY ==
[2024-04-05 15:57] VITALS: BMI 41.0
== END | disposition home or self-care (01) ==
LOC: SL 19:59
PROVIDERS: PCP Internal Medicine; Referring Provider Internal Medicine; Visit Provider Internal Medicine
DX: G47.10 Hypersomnia, unspecified (principal)
CPT/HCPCS: 95810

== ENCOUNTER → 2024-11-28 | Outpatient (CLI) | payer MEDICAID, SELFPAY ==
[2024-04-05 15:57] VITALS: BMI 41.0
[2024-11-28 17:03] LABS: Hematocrit 28.6 % (37-47); Hemoglobin 7.8 g/dL (12.0-15.0); Immature Granulocytes Count 0.010 X10^3/uL (0.0-0.0); Mean Corp Hgb Conc 27.3 g/dL (32-36); Mean Corpuscular Volume 70.4 fL (81-99); Mean Platelet Vol. 11.0 fl (6.2-12.0); NRBC Flagged by Analyzer 0 % (0-5); Platelet Count 270 K/mm3 (150-450); RBC Distribution Width CV 18.4 % (11.6-14.6); RBC Distribution Width SD 45.8 fl (35.1-43.9); Red Blood Count 4.06 M/mm3 (4.2-5.4); White Blood Count 4.8 K/mm3 (4.4-11.0)
[2024-11-28 17:18] LABS: Anion Gap 11 (5-15); BUN 9 mg/dL (4-19); BUN/Creat Ratio 9.9 RATIO (10-20); Calcium,Total 9.2 mg/dL (7.6-11.0); Carbon Dioxide 22.2 mmol/L (21.0-32.0); Chloride 106 mmol/L (98-108); Glucose 109 mg/dL (70-99); Potassium 4.0 mmol/L (3.3-5.1)
--- OUTSIDE RECORDS SUMMARY | 2024-11-28 22:06 | XMS RPT_ITS | CCD ---
Author Organization [facility] Care Team Providers Care Thermodynamicist Name Role Phone NHUNG MOROCHO Unavailable Unavailable RILEY HALL Unavailable Unavailable Dr. Princess Baca Primary Care Provider [phone] Dr. Princess Baca Attending Provider [phone] Dr. Princess Baca Referring Provider [phone] Nabil BRICEÑO, ROSHAN Pastrana Attending Provider [phone] Dr. Princess Baca Primary Care Provider [phone]) Dr. Princess Baca Referring Provider [phone])2 Dr. Princess Baca Primary Care Provider 1(33 [phone]) Dr. Princess Baca Attending Provider [phone] Dr. Princess Baca Referring Provider [phone])2 Princess Baca MD Primary Care Provider [phone] PHUONG EFEWONGBE B Primary Care Unavailable JAYDA PEÑALOZA Attending Unavailable DIONICIOE, EFEWONGBE B Primary Care Unavailable CHUYGHE, EFEWONGBE B Primary Care Unavailable CHUYGHE, EFEWONGBE B Primary Care Unavailable CHUYGHE, EFEWONGBE B Primary Care Unavailable Phuong, Efewongbe Attending Unavailable Chuyghe, Efewongbe Primary Care Unavailable Dionicioe, Efewongbe Referring Unavailable Phuong, Efewongbe Attending Unavailable Phuong, Efewongbe Primary Care Unavailable Dionicioe, Efewongbe Referring Unavailable Phuong, Efewongbe Attending Unavailable Oleghe, Efewongbe Primary Care Unavailable Oleghe, Efewongbe Referring Unavailable Oleghe, Efewongbe Primary Care Unavailable Christoph Swartz Attending Unavailable Oleghe, Efewongbe Attending Unavailable Oleghe, Efewongbe Primary Care Unavailable Oleghe, Efewongbe Referring Unavailable Nagajothi, Nagapradee Referring Unavailabl e Oleghe, Efewongbe Primary Care Unavailable Nagajothi, Nagapradee Attending Unavailabl e Oleghe, Efewongbe Primary Care Unavailable Teri EMISSIONS REPAIR TECHNICIAN, Misti Referring Unavailable [place] EMISSIONS REPAIR TECHNICIAN, Misti Attending Unavailable Oleghe, Efewongbe Primary Care Unavailable [place] EMISSIONS REPAIR TECHNICIAN, Misti Attending Unavailable Teri EMISSIONS REPAIR TECHNICIAN, Misti Referring Unavailable Oleghe, Efewongbe Attending Unavailable Oleghe, Efewongbe Primary Care Unavailable Oleghe, Efewongbe Referring Unavailable Nagajothi, Nagapradee Referring Unavailabl e Nagajothi, Nagapradee Attending Unavailabl e Oleghe, Efewongbe Primary Care Unavailable Oleghe, Efewongbe Attending Unavailable Oleghe, Efewongbe Primary Care Unavailable Oleghe, Efewongbe Referring Unavailable Oleghe, Efewongbe Primary Care Unavailable Oleghe, Efewongbe Referring Unavailable Oleghe, Efewongbe Attending Unavailable Oleghe, Efewongbe Attending Unavailable Oleghe, Efewongbe Primary Care Unavailable Oleghe, Efewongbe Referring Unavailable Nagajothi, Nagapradee Attending Unavailabl e Nagajothi, Nagapradee Referring Unavailabl e Oleghe, Efewongbe Primary Care Unavailable Nagajothi, Nagapradee Referring Unavailabl e Nagajothi, Nagapradee Attending Unavailabl e Oleghe, Efewongbe Primary Care Unavailable Nagajothi, Nagapradee Referring Unavailabl e Nagajothi, Nagapradee Attending Unavailabl e Oleghe, Efewongbe Primary Care Unavailable Nagajothi, Nagapradee Referring Unavailabl e Nagajothi, Nagapradee Attending Unavailabl e Oleghe, Efewongbe Primary Care Unavailable Oleghe, Efewongbe Primary Care Unavailable Angelita Lucio Attending Unavailabl e Oleghe, Efewongbe Primary Care Unavailable Franchesca Aquino NP Attending Unavailable Oleghe, Efewongbe Referring Unavailable Oleghe, Efewongbe Primary Care Unavailable Noemi Virgen Attending Unavailable Oleghe, Efewongbe Primary Care Unavailable Oleghe, Efewongbe Referring Unavailable Oleghe, Efewongbe Attending Unavailable Oleghe, Efewongbe Attending Unavailable Oleghe, Efewongbe Primary Care Unavailable Oleghe, Efewongbe Referring Unavailable Oleghe, Efewongbe Primary Care Unavailable Angelita Lucio Attending Unavailabl e Oleghe, Efewongbe Referring Unavailable Oleghe, Efewongbe Attending Unavailable Oleghe, Efewongbe Primary Care Unavailable Oleghe, Efewongbe Referring Unavailable Oleghe, Efewongbe Attending Unavailable Oleghe, Efewongbe Primary Care Unavailable Oleghe, Efewongbe Referring Unavailable Noemi Virgen Attending Unavailable Oleghe, Efewongbe Primary Care Unavailable Oleghe, Efewongbe Primary Care Unavailable Noemi Virgen Attending Unavailable Oleghe, Efewongbe Primary Care Unavailable Oleghe, Efewongbe Attending Unavailable Oleghe, Efewongbe Referring Unavailable Oleghe, Efewongbe Primary Care Unavailable Ramon EMISSIONS REPAIR TECHNICIANThea Attending Unavailable Oleghe, Efewongbe Referring Unavailable Oleghe, Efewongbe Primary Care Unavailable Noemi Virgen Attending Unavailable Oleghe, Efewongbe Primary Care Unavailable Noemi Virgen Attending Unavailable Oleghe, Efewongbe Primary Care Unavailable Ramon EMISSIONS REPAIR TECHNICIANThea Attending Unavailable Oleghe, Efewongbe Referring Unavailable Oleghe, Efewongbe Primary Care Unavailable GlendaleMisti salazar NP Attending Unavailable Oleghe, Efewongbe Referring Unavailable Oleghe, Efewongbe Primary Care Unavailable Noemi Virgen Attending Unavailable Oleghe, Efewongbe Primary Care Unavailable Oleghe, Efewongbe Attending Unavailable Oleghe, Efewongbe Referring Unavailable Oleghe, Efewongbe Attending Unavailable Oleghe, Efewongbe Primary Care Unavailable Oleghe, Efewongbe Referring Unavailable Oleghe, Efewongbe Attending Unavailable Oleghe, Efewongbe Primary Care Unavailable Oleghe, Efewongbe Referring Unavailable Roof Thea BRICEÑO Attending Unavailable Phuong Leandroarleenkyleigh Referring Unavailable Phuong Princess Primary Care Unavailable ChuyrupinderRosemarienarenyasmeen Primary Care Unavailable Misti Williamson NP Attending Unavailable Phuong Pedrokyleigh Referring Unavailable Allergies Allergy Classification Reported Allergen(s) Allergy Type Date of Onset Reaction(s) Facility busPIRone (1 source) busPIRone Drug Allergy 8 Other: See Comments [facility] Work Phone: Cinnamon Preparation (1 source) Cinnamon Preparation Drug Allergy 8 [facility] DULoxetine (1 source) DULoxetine Drug Allergy 8 Other: See Comments [facility] (12 sources) Cinnamon Preparation; Translations: [CINNAMON] Drug Allergy 8 [facility] (1 source) busPIRone Drug Allergy 8 Other: See Comments [facility] Work Phone: (9 sources) DULoxetine; Translations: [DULOXETINE] Drug Allergy 8 Other: See Comments [facility] (1 source) Cinnamon Preparation Drug Allergy 5 [facility] Rep[facility] Medications Current Medications Medication Drug Class(es) Dates Sig (Normalized) Sig (Original) [id number] 200 actuat albuterol 0.09 mg/actuat metered dose inhaler (7 sources) beta2-Adrenergic Agonist Start: 11-02-2023 take 2 puff(s) by inhalation every four hours as needed for wheezing albuterol HFA (PROVENTIL HFA, VENTOLIN HFA) 90 mcg/actuation inhaler Indications: Viral bronchitis Inhale 2 Puffs as instructed every 4 hours as needed for wheezing/shortnes s of breath. 1 Each 11/02/2023 Active Start: 03-26-2021 take 1 puff(s) by in halation every six hours Albuterol Sulfate Active 1 - 2 PUFF INHALATION EVERY 6 HOURS 8.5 March 26, 2021 12:00am amoxicillin 875 mg / clavulanate 125 mg oral tablet (13 sources) Penicillin-class Antibacterial Start: 11-07-2023 End: 11-14-2023 take 1 tablet by mouth twice daily amoxicillin-clavulanate potassium (AUGMENTIN) 875-125 mg per tablet Indications: Respiratory infection Take 1 tablet by mouth two times a day for 7 days. 14 tablet 11/07/2023 11/14/2023 Active Start: 01-15-2022 End: 06-02-2022 take 1 tablet by mouth every twelve hours Amoxicillin-Pot Clavulanate Discontinued 1 TABLET PO Q12H January 14, 2022 11:00pm June 02, 2022 10:01am Start: 06-28-2020 End: 07-10-2020 take 1 tablet by mouth twice daily Amoxicillin-Pot Clavulanate Discontinued 1 TABLET PO TWICE A DAY June 27, 2020 11:00pm July 10, 2020 9:34am Start: 02-28-2020 End: 03-29-2020 take 1 tablet by mouth twice daily Amoxicillin-Pot Clavulanate (Augmentin) 875-125 mg tablet Discontinued 1 TABLET PO TWICE A DAY February 28, 2020 12:00am March 29, 2020 2:24pm Start: 12-18-2019 End: 12-23-2019 take 875 mg by mouth twice daily Amoxicillin-Pot Clavulanate Discontinued 875 MG PO TWICE A DAY December 17, 2019 11:00pm December 22, 2019 11:03pm apixaban 5 mg oral tablet (9 sources) Factor Xa Inhibitor Start: 01-11-2018 take 1 tablet by mouth twice daily ELIQUIS 5 mg tab(s) Take 1 tablet by mouth twice daily. 60 tablet 2 01/11/2018 Active aspirin 81 mg delayed release oral tablet (2 sources) Platelet Aggregation Inhibitor, Nonsteroidal Anti-inflammatory Drug Start: 02-10-2024 aspirin, enteric coated (ASPIRIN, ENTERIC COATED) 81 mg EC tablet 02/10/2024 Active atorvastatin 40 mg oral tablet (2 sources) HMG-CoA Reductase Inhibitor Start: 02-10-2024 atorvastatin (LIPITOR) 40 mg tablet 02/10/2024 Active benzonatate 100 mg oral capsule (9 sources) Non-narcotic Antitussive Start: 10-27-2023 take 2 capsules by mouth three times daily as needed benzonatate (TESSALON PERLE) 100 mg capsule Indications: URI, acute Take 2 capsules by mouth three times a day as needed. 30 capsule 10/27/2023 Active Start: 03-26-2021 End: 10-08-2021 take 200 mg by mouth twice daily Benzonatate Discontinued 200 MG PO TWICE A DAY March 26, 2021 12:00am October 08, 2021 12:47pm brompheniramine maleate 0.4 mg/ml / dextromethorphan hydrobromide 2 mg/ml / pseudoephedrine hydrochloride 6 mg/ml oral solution (9 sources) alpha-Adrenergic Agonist, Uncompetitive K-enjogd-H-aspartate Receptor Antagonist, Sigma-1 Agonist Start: 04-01-2018 take 5 mL by mouth four times daily as needed Gdmdjzujpuawhgo-Rbvmvfeer-BM (BROMFED DM) 2-30-10 mg/5 mL syrup Indications: Flu-like symptoms Take 5 mL by mouth four times daily as needed. 118 mL 04/01/2018 Active busPIRone hydrochloride 15 mg oral tablet (20 sources) Start: 03-08-2024 take 1 tablet by mouth three times daily busPIRone (BUSPAR) 15 mg tablet Take 15 mg by mouth three times a day. 03/08/2024 Active Start: 10-08-2021 End: 05-16-2022 take 15 mg by mouth three times daily Buspirone Active 15 MG PO THREE TIMES A DAY 270 90 May 16, 2022 8:39am Start: 03-29-2020 End: 10-08-2021 take 10 mg by mouth three times daily Buspirone Discontinued 10 MG PO THREE TIMES A DAY 270 90 December 10, 2020 2:20pm October 08, 2021 1:12pm Start: 12-23-2019 End: 03-29-2020 take 5 mg by mouth three times daily Buspirone Discontinued 5 MG PO THREE TIMES A DAY February 27, 2020 1:59pm March 29, 2020 2:56pm cariprazine 3 mg oral capsule (19 sources) Atypical Antipsychotic Start: 09-15-2023 take 1 capsule by mouth once VRAYLAR 3 mg capsule Take 1 capsule by mouth every afternoon. 09/15/2023 Active Start: 01-21-2023 Cariprazine Ac tive 3 MG .ROUTE DAILY January 21, 2023 12:15pm 3 mg daily; Start: 09-11-2022 End: 01-21-2023 Cariprazine Discontinued 3 M G .ROUTE .COMPLEX 90 September 11, 2022 10:35am January 21, 2023 12:16pm 3 mg; Start: 09-09-2022 End: 09-11-2022 Cariprazine (Vraylar) 3 mg c apsule Discontinued 3 MG .ROUTE .COMPLEX 90 September 09, 2022 11:45am September 11, 2022 10:35am 3 mg; Start: 06-02-2022 End: 09-09-2022 take 1 capsule by mouth once daily Cariprazine (Vraylar) 1.5 mg capsule Discontinued 0 .ROUTE .COMPLEX 60 September 01, 2022 3:10pm September 09, 2022 11:46am take 1 capsule by mouth once daily carvedilol 3.125 mg oral tablet (2 sources) alpha-Adrenergic Edie, beta-Adrenergic Edie Start: 02-10-2024 carvedilol (COREG) 3.125 mg tablet 02/10/2024 Active clopidogrel 75 mg oral tablet (2 sources) P2Y12 Platelet Inhibitor Start: 02-10-2024 clopidogrel (PLAVIX) 75 mg tablet 02/10/2024 Active doxycycline hyclate 100 mg oral tablet (2 sources) Tetracycline-class Drug Start: 10-29-2023 End: 11-03-2023 take 1 tablet by mouth twice daily doxycycline (VIBRA-TABS) 100 mg tablet Take 1 tablet by mouth two times a day for 5 days. 10 tablet 0 10/29/2023 11/03/2023 Active escitalopram 5 mg oral tablet (9 sources) Serotonin Reuptake Inhibitor Start: 08-14-2023 escitalopram oxalate (LEXAPRO) 5 mg tablet Take 5 mg by mouth. 08/14/2023 Active FLUoxetine 40 mg oral capsule (9 sources) Serotonin Reuptake Inhibitor Start: 01-22-2018 take 1 capsule by mouth once daily FLUoxetine HCl (PROZAC) 40 mg capsule Indications: Anxiety and depression Take 1 capsule by mouth once daily. 30 capsule 5 01/22/2018 Active fluticasone propionate 0.05 mg/actuat metered dose nasal spray (4 sources) Corticosteroid Start: 12-26-2022 take 2 spray(s) nasal route once daily Fluticasone Propionate Active 0 .ROUTE .COMPLEX December 26, 2022 3:00pm instill 2 sprays into each nostril once daily Start: 08-14-2022 End: 12-26-2022 take 1 spray(s) nasal route once daily Fluticasone Propionate (Flonase Allergy Relief) 50 mcg/actuation spray,suspension Discontinued 2 SPRAY INTRANASAL DAILY 15.8 October 22, 2022 12:56pm December 26, 2022 3:00pm administer into each nostril folic acid 1 mg oral tablet (14 sources) Start: 03-03-2024 take 1 tablet by mouth once folic acid 1 mg tablet Take 1 tablet by mouth every afternoon. 03/03/2024 Active Start: 12-18-2019 End: 10-08-2021 take 1 mg by mouth once daily Folic Acid Discontinued 1 MG PO DAILY December 21, 2020 8:48am October 08, 2021 3:54pm Inhalational Spacing Device (1 source) Start: 11-02-2023 End: 11-02-2023 Inhalational Spacing Device 1 Device one time only for 1 dose. 1 Each 0 11/02/2023 11/02/2023 Active losartan potassium 25 mg oral tablet (20 sources) Angiotensin 2 Receptor Edie Start: 08-25-2023 take 1 tablet by mouth once losartan (COZAAR) 25 mg tablet Take 1 tablet by mouth every afternoon. 08/25/2023 Active Start: 03-29-2020 End: 11-28-2022 take 25 mg by mouth once daily Losartan Discontinued 2 5 MG PO DAILY July 04, 2021 7:22am October 08, 2021 3:54pm pantoprazole 40 mg delayed release oral tablet (2 sources) Proton Pump Inhibitor Start: 04-10-[address] (PROTONIX) 40 mg tablet 04/10/2024 Active polymyxin b 55458 unt/ml / trimethoprim 1 mg/ml ophthalmic solution (1 source) Dihydrofolate Reductase Inhibitor Antibacterial, Polymyxin-class Antibacterial Start: 04-11-2024 End: 04-18-2024 take 1 drop(s) into the eye(s) four times daily polymyxin B-trimethoprim (POLYTRIM) 10,000 unit- 1 mg/mL ophthalmic solution Indications: Conjunctivitis of both eyes, unspecified conjunctivitis type Use 1 Drop in both eyes four times daily for 7 days. 10 mL 04/11/2024 04/18/2024 Active polysaccharide iron complex 150 mg oral capsule (9 sources) Start: 05-07-2018 take 1 capsule by mouth twice daily iron polysaccharide complex (FERREX 150) 150 mg iron capsule Indications: Iron deficiency anemia, unspecified iron deficiency anemia type Take 1 capsule by mouth twice daily. 60 capsule 3 05/07/2018 Active predniSONE 20 mg oral tablet (10 sources) Start: 05-09-2024 End: 05-14-2024 take 1 tablet by mouth twice daily Start: 11-02-2023 End: 11-11-2023 predniSONE (DELTASONE) 10 mg tablet Indications: Viral bronchitis Take 4 tabs daily for 3 days, then 2 tabs daily for 3 days, then 1 tab daily for 3 days with food. 21 tablet 11/02/2023 11/11/2023 Active Start: 01-21-2023 take 40 mg by mouth once daily Prednisone Active 40 MG PO DAILY January 20, 2023 11:00pm Start: 01-15-2022 End: 06-02-2022 take 40 mg by mouth once daily Prednisone Discontinued 40 MG PO DAILY January 14, 2022 11:00pm June 02, 2022 10:02am Start: 04-01-2021 End: 10-08-2021 take 40 mg by mouth once daily Prednisone Discontinued 40 MG PO DAILY April 01, 2021 12:00am October 08, 2021 12:48pm triamcinolone acetonide 0.001 mg/mg topical ointment (1 source) Corticosteroid Start: 01-21-2023 Triamcinolone Acetonide Active 1 APPLIC TOPICAL TWICE A DAY January 20, 2023 11:00pm valACYclovir 500 mg oral tablet (3 sources) Herpesvirus Nucleoside Analog DNA Polymerase Inhibitor, Herpes Simplex Virus Nucleoside Analog DNA Polymerase Inhibitor, Herpes Zoster Virus Nucleoside Analog DNA Polymerase Inhibitor Start: 01-03-2021 take 1 tablet by mouth twice daily Valacyclovir (Valtrex) 500 mg tablet Active 500 MG PO TWICE A DAY January 02, 2021 11:00pm Completed/Discontinued Medications Medication Drug Class(es) Dates Sig (Normalized) Sig (Original) 8 hr acetaminophen 650 mg extended release oral tablet (3 sources) Start: 07-17-2020 End: 08-29-2020 Acetaminophen (Tylenol Arthritis Pain) 650 mg tablet extended release Discontinued 1300 MG PO Q12H 60 July 16, 2020 11:00pm August 29, 2020 1:36pm amoxicillin 500 mg oral capsule (6 sources) Penicillin-class Antibacterial Start: 09-20-2020 End: 09-30-2020 take 1000 mg by mouth twice daily Amoxicillin Discontinued 1000 MG PO TWICE A DAY 40 10 September 19, 2020 11:00pm September 29, 2020 11:01pm Start: 08-29-2020 End: 09-20-2020 take 250 mg by mouth twice daily Amoxicillin Discontinued 250 MG PO TWICE A DAY August 28, 2020 11:00pm September 20, 2020 8:13am ARIPiprazole 15 mg oral tablet (20 sources) Atypical Antipsychotic Start: 01-02-2022 End: 06-02-2022 take 0.5 tablet by mouth at bedtime Aripiprazole Discontinued 0 .ROUTE .COMPLEX 45 May 16, 2022 8:39am June 02, 2022 10:27am take 1/2 tablets by mouth at bedtime Start: 10-02-2020 End: 01-02-2022 take 7.5 mg by mouth at bedtime Aripiprazole (Abilify) 5 mg tablet Discontinued 7.5 MG PO AT BEDTIME 135 90 September 19, 2021 12:24pm October 08, 2021 3:54pm Start: 06-28-2020 End: 10-02-2020 take 1 tablet by mouth at bedtime Aripiprazole (Abilify) 5 mg tablet Discontinued 5 MG PO AT BEDTIME June 27, 2020 11:00pm October 02, 2020 2:25pm azelastine hydrochloride 0.206 mg/actuat metered dose nasal spray (3 sources) Histamine-1 Receptor Antagonist Start: 07-02-2021 End: 06-02-2022 take 1 spray(s) nasal route once daily Azelastine Discontinued 2 SPRAY INTRANASAL DAILY July 01, 2021 11:00pm June 02, 2022 10:01am administer into each nostril azithromycin 250 mg oral tablet (3 sources) Macrolide Antimicrobial Start: 04-01-2021 End: 10-08-2021 take 2-5 tablets by mouth once daily Azithromycin (Zithromax Z-Haja) 250 mg tablet Discontinued 0 PO .COMPLEX 6 April 01, 2021 12:00am October 08, 2021 12:47pm take 500 mg today (day 1), then 250 mg for 4 days (days 2-5) PO 12 hr buPROPion hydrochloride 150 mg extended release oral tablet (20 sources) Aminoketone Start: 03-29-2020 End: 08-01-2022 take 2 tablets by mouth once daily in the morning, then take 1 tablet by mouth once daily in the evening Bupropion Hcl Discontinued 0 .ROUTE .COMPLEX 270 May 16, 2022 8:39am August 01, 2022 11:09am take 2 tablets by mouth every morning and 1 tablet every evening Start: 12-23-2019 End: 03-29-2020 Bupropion Hcl (Wellbutrin Sr ) 150 mg tablet sustained-release 12 hr Discontinued 150 MG PO TWICE A DAY 60 February 27, 2020 1:59pm March 29, 2020 2:56pm start daily for the first 3 days then increase to twice daily cetirizine hydrochloride 10 mg oral capsule (3 sources) Histamine-1 Receptor Antagonist Start: 07-17-2020 End: 09-20-2020 take 1 capsule by mouth once daily Cetirizine (Zyrtec) 10 mg capsule Discontinued 10 MG PO DAILY July 16, 2020 11:00pm September 20, 2020 8:13am cyclobenzaprine hydrochloride 10 mg oral tablet (3 sources) Muscle Relaxant Start: 10-30-2020 End: 11-04-2020 take 10 mg by mouth three times daily Cyclobenzaprine Discontinued 10 MG PO THREE TIMES A DAY 09 08October 29, 2020 11:00pm November 03, 2020 11:01pm dexamethasone 6 mg oral tablet (3 sources) Corticosteroid Start: 12-19-2021 End: 01-15-2022 take 6 mg by mouth once daily Dexamethasone Discontinued 6 MG PO DAILY December 18, 2021 11:00pm January 15, 2022 2:24pm dextromethorphan hydrobromide 30 mg oral tablet (3 sources) Uncompetitive A-jlntje-F-asparta te Receptor Antagonist, Sigma-1 Agonist Start: 04-01-2021 End: 10-08-2021 take 30 mg by mouth every eight hours Dextromethorphan Hbr Discontinued 30 MG PO Q8H April 01, 2021 12:00am October 08, 2021 12:48pm famotidine 20 mg oral tablet (8 sources) Histamine-2 Receptor Antagonist Start: 07-27-2017 End: 04-11-2024 take 1 tablet by mouth every twenty-four hours as needed famotidine (PEPCID) 20 mg tablet Take 1 tablet by mouth at bedtime as needed. 30 tablet 1 07/27/2017 04/11/2024 Discontinued ferrous gluconate 324 mg oral tablet (3 sources) Start: 12-18-2019 End: 01-23-2020 take 324 mg by mouth twice daily at mealtime Ferrous Gluconate Discontinued 324 MG PO TWICE DAILY WITH MEALS December 17, 2019 11:00pm January 23, 2020 8:51am ferrous sulfate 325 mg oral tablet (11 sources) Start: 01-23-2020 End: 09-05-2022 take 1 tablet by mouth once daily Ferrous Sulfate (Ferosul) 325 mg (65 mg iron) tablet Discontinued 0 .ROUTE .COMPLEX 90 January 28, 2022 8:40am September 05, 2022 12:15pm take 1 tablet by mouth once daily guaiFENesin 400 mg oral tablet (3 sources) Start: 03-26-2021 End: 10-08-2021 take 400 mg by mouth three times daily Guaifenesin Discontinued 400 MG PO THREE TIMES A DAY March 26, 2021 12:00am October 08, 2021 12:48pm hydrOXYzine hydrochloride 25 mg oral tablet (20 sources) Antihistamine Start: 08-25-2023 End: 04-11-2024 take 1 tablet by mouth twice daily for anxiety hydrOXYzine HCl (ATARAX) 25 mg tablet take 1 tablet by mouth twice a day for anxiety 08/25/2023 04/11/2024 Discontinued Start: 12-23-2019 End: 11-29-2020 take 25 mg by mouth twice daily Hydroxyzine Hcl Active 25 MG PO TWICE A DAY November 29, 2020 2:14pm Start: 04-30-2017 End: 12-18-2019 take 1 capsule by mouth three times daily as needed for anxiety hydrOXYzine pamoate (VISTARIL) 50 mg capsule Indications: CHELSEY (generalized anxiety disorder) Take 1 capsule by mouth three times daily as needed for Anxiety. 60 capsule 08/11/2018 Active lisinopril 5 mg oral tablet (6 sources) Angiotensin Converting Enzyme Inhibitor Start: 12-18-2019 End: 03-29-2020 take 5 mg by mouth once daily Lisinopril Discontinued 5 MG PO DAILY January 23, 2020 12:00am March 29, 2020 3:03pm meloxicam 15 mg oral tablet (18 sources) Nonsteroidal Anti-inflammatory Drug Start: 07-17-2020 End: 06-02-2022 take 15 mg by mouth once daily Meloxicam Discontinued 15 MG PO DAILY February 05, 2021 12:23pm October 08, 2021 3:54pm methylPREDNISolone 4 mg oral tablet (6 sources) Corticosteroid Start: 10-30-2020 End: 11-04-2020 take 1 tablet by mouth once Methylprednisolone (Medrol (Haja)) 4 mg tablets,dose pack Discontinued 4 MG PO per package directions 10 08October 29, 2020 11:00pm November 03, 2020 11:01pm Start: 02-28-2020 End: 03-29-2020 take 1 tablet by mouth once Methylprednisolone (Medrol (Haja)) 4 mg tablets,dose pack Discontinued 0 PO per package directions February 28, 2020 12:00am March 29, 2020 2:25pm PO PER PKG DIR 24 hr nicotine 0.875 mg/hr transdermal system (20 sources) Cholinergic Nicotinic Agonist Start: 12-18-2019 End: 01-23-2020 apply 14 mg transdermal route once daily Nicotine Discontinued 21 MG TRANSDERM. DAILY December 17, 2019 11:00pm January 23, 2020 8:51am Transition to 14 mg patch per PCP discretion. Start: 12-11-2017 nicotine (RUSSEL DERM) 14 mg/24 hr Indications: Tobacco use Apply 1 Patch as directed every 24 hours. No smoking with patch. Step 2 for 2 weeks, then wean down 14 Patch 12/11/2017 Active Start: 12-11-2017 apply 1 dose transde rmal route every twenty-four hours nicotine (NICODERM) 21 mg/24 hr Indications: Tobacco use Apply 1 Patch as directed every 24 hours. For 6 weeks, then wean down 35 Patch 12/11/2017 Active Start: 12-11-2017 nicotine (RUSSEL DERM) 7 mg/24 hr Indications: Tobacco use Apply 1 Patch as directed every 24 hours. 2 wks, then stop 14 Patch 12/11/2017 Active norethindrone 0.35 mg oral tablet (3 sources) Start: 09-18-2020 End: 08-13-2022 take 1 tablet by mouth once daily Norethindrone (Contraceptive) (Savita) 0.35 mg tablet Discontinued 0.35 MG PO daily September 17, 2020 11:00pm August 13, 2022 1:31pm start day 1 of menstrual cycle omeprazole 40 mg delayed release oral capsule (20 sources) Proton Pump Inhibitor Start: 04-30-2017 End: 04-11-2024 take 1 capsule by mouth once daily Omeprazole 40 mg capsule Indications: Gastroesophageal reflux disease, esophagitis presence not specified Take 1 capsule by mouth once daily. 30 capsule 08/11/2018 04/11/2024 Discontinued thiamine 100 mg oral tablet (3 sources) Start: 12-18-2019 End: 01-23-2020 take 100 mg by mouth once daily at mealtime Thiamine Hcl (Vitamin B1) Discontinued 100 MG PO DAILY WITH MEALS December 17, 2019 11:00pm January 23, 2020 8:51am traZODone hydrochloride 100 mg oral tablet (3 sources) Serotonin Reuptake Inhibitor Start: 12-18-2019 End: 12-23-2019 take 100 mg by mouth at bedtime Trazodone Discontinued 100 MG PO AT BEDTIME December 17, 2019 11:00pm December 23, 2019 1:11pm Problems Active Problems Problem Classification Problem Date Documented Date Episodic/Chronic Acute bronchitis (1 source) Viral bronchitis; Translations: [Acute bronchitis due to other specified organisms] 11-02-2023 Episodic Alcohol-related disorders (6 sources) Alcohol dependence; Translations: [Alcohol dependence, uncomplicated] 12-15-2019 Chronic Allergic reactions (3 sources) Inflammatory dermatosis; Translations: [Dermatitis, unspecified] 01-21-2023 Episodic Anxiety disorders (20 sources) Panic attack; Translations: [Panic disorder [episodic paroxysmal anxiety]] 12-15-2019 Chronic Chronic obstructive pulmonary disease and bronchiectasis (3 sources) Bronchitis; Translations: [Bronchitis, not specified as acute or chronic] 01-15-2022 Episodic Coagulation and hemorrhagic disorders (9 sources) Hypercoagulability state; Translations: [Other primary thrombophilia] Onset: 9 05-07-2018 Chronic Deficiency and other anemia (1 source) Iron deficiency anemia secondary to blood loss (chronic); Translations: [Iron deficiency anemia secondary to blood loss (chronic)] Onset: 5 Chronic Deficiency and other anemia (3 sources) Microcytic anemia; Translations: [Iron deficiency anemia, unspecified] 12-15-2019 Episodic Deficiency and other anemia (1 source) Anemia, unspecified; Translations: [Anemia, unspecified] Onset: 5 Episodic Diabetes mellitus without complication (4 sources) Hyperglycemia; Translations: [Hyperglycemia, unspecified] Onset: 5 12-15-2019 Episodic Disorders of lipid metabolism (2 sources) Mixed hyperlipidemia; Translations: [Hyperlipidemia, unspecified] Onset: 4 Chronic Disorders of teeth and jaw (3 sources) Infection of tooth; Translations: [Periapical abscess without sinus] 12-15-2019 Episodic Esophageal disorders (12 sources) Gastroesophageal reflux disease; Translations: [Gastro-esophageal reflux disease without esophagitis] 12-15-2019 Chronic Essential hypertension (8 sources) Hypertensive disorder; Translations: [Essential (primary) hypertension] Onset: 5 01-23-2020 Chronic Immunizations and screening for infectious disease (5 sources) Contact with or exposure to other viral diseases; Translations: [Exposure to confirmed case of COVID-19] 11-08-2020 Episodic Inflammation; infection of eye (except that caused by tuberculosis or sexually transmitteddisease) (1 source) Bilateral conjunctivitis; Translations: [Unspecified conjunctivitis] 04-11-2024 Episodic Menstrual disorders (1 source) Excessive and frequent menstruation with regular cycle; Translations: [Excessive and frequent menstruation with regular cycle] Onset: 5 Chronic Mood disorders (4 sources) Bipolar disorder, most recent episode depression; Translations: [Bipolar disorder, unspecified] 06-02-2022 Chronic Nausea and vomiting (2 sources) Diarrhea and vomiting; Translations: [Vomiting, unspecified] 08-14-2023 Episodic Osteoarthritis (6 sources) Primary gonarthrosis, bilateral; Translations: [Bilateral primary osteoarthritis of knee] 01-31-2022 Chronic Other circulatory disease (3 sources) Elevated blood-pressure reading without diagnosis of hypertension; Translations: [Elevated blood-pressure reading, without diagnosis of hypertension] 12-15-2019 Episodic Other connective tissue disease (3 sources) Lateral epicondylitis of right humerus; Translations: [Lateral epicondylitis, right elbow] 10-18-2020 Episodic Other ear and sense organ disorders (3 sources) Otalgia, right ear; Translations: [Right ear pain] 10-01-2020 Episodic Other ear and sense organ disorders (1 source) Bilateral earache; Translations: [Otalgia, bilateral] 11-02-2023 Episodic Other female genital disorders (1 source) Abnormal uterine and vaginal bleeding, unspecified; Translations: [Abnormal uterine and vaginal bleeding, unspecified] Onset: Chronic Other female genital disorders (3 sources) Enlarged uterus; Translations: [Hypertrophy of uterus] 08-29-2020 Episodic Other liver diseases (3 sources) Elevated liver enzymes level; Translations: [Abnormal levels of other serum enzymes] 12-15-2019 Episodic Other lower respiratory disease (2 sources) Cough; Translations: [Acute cough] 10-27-2023 Episodic Other lower respiratory disease (1 source) Lower respiratory tract infection; Translations: [Unspecified acute lower respiratory infection] 10-29-2023 Episodic Other lower respiratory disease (1 source) Respiratory tract infection; Translations: [Other specified respiratory disorders] 11-07-2023 Episodic Other nervous system disorders (1 source) Polyneuropathy, unspecified; Translations: [Polyneuropathy, unspecified] Onset: Chronic Other non-traumatic joint disorders (3 sources) Pain in right knee; Translations: [Pain in both knees] 01-31-2022 Episodic Other non-traumatic joint disorders (3 sources) Pain in elbow; Translations: [Pain in right elbow] 10-01-2020 Episodic Other nutritional; endocrine; and metabolic disorders (3 sources) Morbid obesity; Translations: [Morbid (severe) obesity due to excess calories] 12-15-2019 Chronic Other nutritional; endocrine; and metabolic disorders (3 sources) Obesity; Translations: [Obesity, unspecified] 07-02-2021 Chronic Other nutritional; endocrine; and metabolic disorders (1 source) Morbid (severe) obesity due to excess calories; Translations: [Morbid obesity] 06-02-2022 Chronic Other nutritional; endocrine; and metabolic disorders (1 source) Obesity, unspecified; Translations: [Obesity, unspecified] 08-13-2022 Chronic Other nutritional; endocrine; and metabolic disorders (9 sources) Body mass index 30+ - obesity; Translations: [Obesity, unspecified] 06-11-2017 Chronic Other skin disorders (3 sources) Sebaceous cyst of skin; Translations: [Sebaceous cyst] 07-17-2020 Episodic Other upper respiratory infections (4 sources) Sinusitis; Translations: [Chronic sinusitis, unspecified] Onset: 5 07-02-2021 Chronic Other upper respiratory infections (4 sources) Acute maxillary sinusitis; Translations: [Acute maxillary sinusitis, unspecified] 09-20-2020 Episodic Otitis media and related conditions (3 sources) Acute right otitis media; Translations: [Otitis media, unspecified, right ear] 07-10-2020 Episodic Prolapse of female genital organs (3 sources) Herniation of rectum into vagina; Translations: [Rectocele] 06-13-2021 Chronic Residual codes; unclassified (1 source) Hypersomnia, unspecified; Translations: [Hypersomnia, unspecified] Onset: Chronic Residual codes; unclassified (12 sources) Tobacco use and exposure - finding; Translations: [Tobacco use] 12-15-2019 Episodic Skin and subcutaneous tissue infections (3 sources) Abscess of abdominal wall; Translations: [Cutaneous abscess of abdominal wall] 01-15-2022 Episodic Sprains and strains (3 sources) Low back strain; Translations: [Strain of muscle, fascia and tendon of lower back, initial encounter] 10-30-2020 Episodic Thyroid disorders (3 sources) Disorder of thyroid gland; Translations: [Disorder of thyroid, unspecified] 10-01-2020 Episodic Urinary tract infections (3 sources) Urinary tract infectious disease; Translations: [Urinary tract infection, site not specified] 10-30-2020 Episodic Viral infection (3 sources) Disease caused by 2019-nCoV; Translations: [COVID-19] 11-08-2020 Episodic Past or Other Problems Problem Classification Problem Date Documented Da te Episodic/Chronic Coronary atherosclerosis and other heart disease (1 source) Presence of coronary angioplasty implant and graft; Translations: [Presence of coronary angioplasty implant and graft] Onset: 12-17-2023 Episodic Deficiency and other anemia (1 source) Iron deficiency anemia, unspecified; Translations: [Iron deficiency anemia, unspecified] Onset: 06-22-2024 Episodic Nonspecific chest pain (1 source) Chest pain, unspecified; Translations: [Chest pain, unspecified] Onset: 03-25-2024 Episodic Other screening for suspected conditions (not mental disorders or infectious disease) (4 sources) Patient encounter status; Translations: [Encounter for screening for other suspected endocrine disorder] Onset: 08-16-2024 07-02-2021 Episodic Pulmonary heart disease (12 sources) H/O: pulmonary embolus; Translations: [Personal history of pulmonary embolism] Onset: 05-07-2018 12-15-2019 Episodic Residual codes; unclassified (1 source) Tobacco use; Translations: [Tobacco use] Onset: 11-30-2023 Episodic Results Test Name Value Interpretation Reference Range Facility Internal Medicine Office Vis iton 11-07-2024 Internal Medicine Office Visit [facility] [address] [place], [place] [address] OFFICE VISIT Date of Service: 11/07/24 MR#: [id number] Acct: [id number] Name: MIGUEL MELVIN Rep #: [id number] : 1975 Provider: Dr. Princess jesus MD Age/Sex: 49/F Location: [facility] [place] Status: Signed Intake Vital Signs 07/27/24 15:59 11/04/24 13:20 11/07/24 14:11 Height 5 ft 6 in 5 ft 6 in 5 ft 6 in Weight: 260 lb 2 oz BMI 42.0 BP 132/78 H Blood Pressure Location Lt brachial Position Sitting Respiration 16 Pulse 100 Pulse Source Monitor Temp 97.8 F Temp Source Temporal Pulse Oximetry (%) 99 Oxygen Delivery Method room air Intake Visit Reasons: 3 M FU Chief Complaint: 3 m fu Formula Weigher Required: No Accompanied by: Self Is patient in pain?: No Allergies cinnamon Allergy (Verified 11/07/24 13:56) Rash Medications ???Medication ???Instructions ???Recorded ???Confirmed ???Type albuterol sulfate 90 mcg/actuation 1 - 2 puff inhalation Q6H PRN 11/07/24 Rx aerosol inhaler shortness of breath or wheezing #8.5 grams hydroxyzine HCl 25 mg tablet 25 mg PO BID PRN anxiety #30 tabs 12/08/23 11/07/24 Rx aspirin 81 mg tablet,delayed 81 mg PO DAILY@0800 #90 tabs 02/0911/07/24 Rx release hydrocortisone 2.5 % topical cream 1 applic topical BID PRN rash 11/07/24 Rx #453.6 grams atorvastatin 40 mg tablet 40 mg PO QHS #90 tabs 08/30/24 Rx carvedilol 3.125 mg tablet 3.125 mg PO BID #180 tabs 08/30/24 11/07/24 Rx clopidogrel 75 mg tablet 75 mg PO DAILY #90 tabs 08/30/24 0 11/07/24 Rx losartan 25 mg tablet 25 mg PO QDAY blood pressure #90 0 08/30/24 11/07/24 Rx tabs bupropion HCl 150 mg tablet,12 hr See Rx Instructions .Route 11/07/24 Rx sustained-release .COMPLEX mental health #270 TABLET S ferrous sulfate 325 mg (65 mg See Rx Instructions .Route 5 11/07/24 Rx iron) tablet (FeroSul) .COMPLEX supplement #90 tabs folic acid 1 mg tablet 1 mg PO DAILY supplement #90 tabs 09/05/24 11/07/24 Rx pantoprazole 40 mg tablet,delayed 40 mg PO DAILY #90 tabs 09/05/24 11/07/24 Rx release buspirone 15 mg tablet 15 mg PO TID #270 tabs 09/15/24 Rx cariprazine 3 mg capsule (Vraylar) 3 mg PO DAILY mental health #30 09/15/24 11/07/24 Rx caps escitalopram oxalate 10 mg tablet 10 mg PO DAILY depression #90 tab s 09/15/24 11/07/24 Rx norethindrone acetate 5 mg tablet 5 mg PO .COMPLEX #45 tabs 5 11/07/24 Rx medroxyprogesterone 10 mg tablet 10 mg PO QDAY #60 tabs 11/04/24 Rx PFSH Medical History NIDHI (obstructive sleep apnea) Dermatitis Neuropathy Hypersomnolence Anemia Heart attack Cough Borderline type 2 diabetes mellitus Atherosclerotic heart disease of inupiat coronary artery without angina pectoris URI (upper respiratory infection) Bipolar depression Anxiety and depression Bilateral primary osteoarthritis of knee Knee pain, bilateral Abdominal wall abscess Bronchitis Sinusitis Screening for thyroid disorder COVID-19 Right elbow pain Swelling of thyroid gland Enlarged uterus Osteoarthritis of both knees GERD (gastroesophageal reflux disease) Depression Anxiety Alcohol abuse Surgical History Stented coronary artery (11/12/23) Spencer teeth removed History of History of tubal ligation Family History Grandmother Cancer Grandfather Dementia Other Depression with anxiety Social History household members: children housing: house number of children: 4 current occupational status: employed current occupation: [employer] history of recent travel: No sexually active: Yes Smoking Status: Former smoker Tobacco: How many years used: 15 how long ago did patient quit smokin11/12/23 alcohol intake: former year quit: 2019 details: 8 months sober substance use type: does not use diet: diabetic and low carbohydrate caffeine: Yes Type: carbonated beverages Number of servings: 1 what type of physical activity do you participate in: walking seatbelt use: always do you feel safe at home: Yes additional social history: single Female Reproductive History Menstrual Ab induced: 1 HPI HPI Chief Complaint: 3 m fu Details: MIGUEL MELVIN, is a 49-year-old female presenting follow-up of her chronic conditions and with menorrhagia. She reports experiencing excessive bleeding, leading to significant emotional distress and frustration. This condition has been severe enough to require the use of multiple pads simultaneously, changing them approximately every ten minutes. The patient descri (more content not included)... Normal [facility] Office Visit Reporton 11-04-2024 [facility] Office Visit Report [facility] [address], [address] [place] [address] OFFICE VISIT Date of Service: 11/04/24 MR#: [id number] Acct: [id number] Name: MIGUEL MELVIN Rep #: [id number] : 1975 Provider: Dr. Angelita Ma DO Age/Sex: 49/F Location: [facility] [place] Status: Signed Intake Vital Signs 09/15/24 14:59 11/04/24 13:18 11/04/24 13:20 Height 5 ft 6 in 5 ft 6 in 5 ft 6 in Weight: 258 lb 7 oz BMI 41.7 BP 126/79 H Intake Visit Reasons: Hyst Consult Formula Weigher Required: No Is patient in pain?: No Allergies cinnamon Allergy (Verified 11/04/24 13:16) Rash Medications ???Medication ???Instructions ???Recorded ???Confirmed ???Type albuterol sulfate 90 mcg/actuation 1 - 2 puff inhalation Q6H PRN 11/04/24 Rx aerosol inhaler shortness of breath or wheezing #8.5 grams hydroxyzine HCl 25 mg tablet 25 mg PO BID PRN anxiety #30 tabs 12/08/23 11/04/24 Rx aspirin 81 mg tablet,delayed 81 mg PO DAILY@0800 #90 tabs 02/0911/04/24 Rx release hydrocortisone 2.5 % topical cream 1 applic topical BID PRN rash 11/04/24 Rx #453.6 grams atorvastatin 40 mg tablet 40 mg PO QHS #90 tabs 08/30/24 Rx carvedilol 3.125 mg tablet 3.125 mg PO BID #180 tabs 08/30/24 11/04/24 Rx clopidogrel 75 mg tablet 75 mg PO DAILY #90 tabs 08/30/24 0 11/04/24 Rx losartan 25 mg tablet 25 mg PO QDAY blood pressure #90 0 08/30/24 11/04/24 Rx tabs bupropion HCl 150 mg tablet,12 hr See Rx Instructions .Route 11/04/24 Rx sustained-release .COMPLEX mental health #270 TABLET S ferrous sulfate 325 mg (65 mg See Rx Instructions .Route 5 11/04/24 Rx iron) tablet (FeroSul) .COMPLEX supplement #90 tabs folic acid 1 mg tablet 1 mg PO DAILY supplement #90 tabs 09/05/24 11/04/24 Rx pantoprazole 40 mg tablet,delayed 40 mg PO DAILY #90 tabs 09/05/24 11/04/24 Rx release buspirone 15 mg tablet 15 mg PO TID #270 tabs 09/15/24 Rx cariprazine 3 mg capsule (Vraylar) 3 mg PO DAILY mental health #30 09/15/24 11/04/24 Rx caps escitalopram oxalate 10 mg tablet 10 mg PO DAILY depression #90 tab s 09/15/24 11/04/24 Rx norethindrone acetate 5 mg tablet 5 mg PO .COMPLEX #45 tabs 5 11/04/24 Rx medroxyprogesterone 10 mg tablet 10 mg PO QDAY #60 tabs 11/04/24 Rx Post menopausal: No Patient : No : No PFSH Medical History Dermatitis Neuropathy Hypersomnolence Anemia Heart attack Cough Borderline type 2 diabetes mellitus Atherosclerotic heart disease of inupiat coronary artery without angina pectoris URI (upper respiratory infection) Bipolar depression Anxiety and depression Bilateral primary osteoarthritis of knee Knee pain, bilateral Abdominal wall abscess Bronchitis Sinusitis Screening for thyroid disorder COVID-19 Right elbow pain Swelling of thyroid gland Enlarged uterus Osteoarthritis of both knees GERD (gastroesophageal reflux disease) Depression Anxiety Alcohol abuse Surgical History Stented coronary artery (11/12/23) Spencer teeth removed History of History of tubal ligation Family History Grandmother Cancer Grandfather Dementia Other Depression with anxiety Social History household members: children housing: house number of children: 4 current occupational status: employed current occupation: [employer] history of recent travel: No sexually active: Yes Smoking Status: Former smoker Tobacco: How many years used: 15 how long ago did patient quit smokin11/12/23 alcohol intake: former year quit: 2019 details: 8 months sober substance use type: does not use diet: diabetic and low carbohydrate caffeine: Yes Type: carbonated beverages Number of servings: 1 what type of physical activity do you participate in: walking seatbelt use: always do you feel safe at home: Yes additional social history: single HPI Hyst Consult Details: The patient is a 49-year-old (one , 3 vag) female presenting with abnormal uterine bleeding and consideration for hysterectomy due to uterine fibroid. The patient has been experiencing abnormal uterine bleeding, characterized by bleeding for 25 days out of the month. An ultrasound revealed a 5 cm fibroid in the uterus, which measures 13 cm in total, compared to an average uterus size of 7 cm. The patient has been advised that a hysterectomy may be necessary, but alternative options such as uterine artery embolization were discussed. The patient has a significant medical history, including a myocardial infarction in October of the i (more content not included)... Normal [facility] CNOVon 10-27-2024 [facility] Office Visit ([facility]) MELVIN,MIGUEL N ([id number]) 1975 F Date Time Provider Department 10/27/24 7:00 PM JAYDA PEÑALOZA During your visit today, we recorded the following information about you: Temperature Pulse Respiration Blood pressure 97.8 degrees 77/minute 18/minute 127/82 Weight 118.2 kg Jayda Peñaloza APRN.[employer] 10/27/2024 7:14 PM Signed [facility] Subjective Miguel Bundy Olegario is a 49 year old female. Patient presents with: Head Congestion: Cough, nasal congestion, fatigue, chills x5 days HPI Cough and Sneezing: - Onset 5 days ago; initially thought to be allergies. - Taking Benadryl with no relief. - Reports facial tenderness, pressure in forehead, and pain in cheeks. - Eyes were swollen and crusted shut this morning. - Denies . - No known allergies to antibiotics. Allergies: - Diagnosed with allergies to all trees and grass via skin prick test. - Describes allergies as worsening each year. - Denies taking regular allergy medications. Review of Systems Constitutional: (+) fatigue, (+) diaphoresis Head: (+) forehead pressure, (+) facial pain Eyes: (+) eyelid swelling, (+) eye crusting Ears/Nose/Mouth/Throa t: (+) sneezing Respiratory: (+) cough Neurological: (+) lightheadedness Objective BP 127/82 Pulse 77 Temp 36.6 ?C (97.8 ?F) Resp 18 Wt 118.2 kg (260 lb 9.3 oz) LMP 09/26/2023 (Exact Date) SpO2 100% BMI 41.26 kg/m? Physical Exam General: No acute distress. HEENT: Oropharynx clear; tenderness to palpation over forehead and cheeks. CV: Heart sounds normal. Resp: Breath sounds normal. { 1. Rhinosinusitis (J32.9) - Acute rhinosinusitis with facial tenderness, sinus pressure, and congestion unresponsive to Benadryl over 5 days. - Start doxycycline BID for 7 days. - Advised daily Zyrtec or Claritin to help reduce allergic symptoms. - Provided work note for absence due to illness. 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 Patient/authorized public utilities sales representative agreed to proceed MDM Procedures Allergies As of Date: 10/27/2024 Noted Allergy Reaction CINNAMON 06/11/2017 4 - Hives CYMBALTA (DULOXETINE) 12/14/2017 14 - Other: See Comments Comments: Jaw clenching Date Reviewed: 10/27/2024 Reviewed by: Renzo Spears MA - Fully Assessed Reason for Visit: Head Congestion [234] Cmt: Cough, nasal congestion, fatigue, chills x5 days Primary Visit Diagnosis:Rhinosinusi tis [J32.9] Order(s):doxycycline (VIBRA-TABS) 100 mg tabletTake 1 tablet by mouth two times a day for 7 days.Disp: 14 tabletRfl: 0 Prescriptions as of 10/27/2024 - doxycycline (VIBRA-TABS) 100 mg tablet Take 1 tablet by mouth two times a day for 7 days. - aspirin, enteric coated (ASPIRIN, ENTERIC COATED) 81 mg EC tablet - atorvastatin (LIPITOR) 40 mg tablet - carvedilol (COREG) 3.125 mg tablet - busPIRone (BUSPAR) 15 mg tablet Take 15 mg by mouth three times a day. - clopidogrel (PLAVIX) 75 mg tablet - folic acid 1 mg tablet Take 1 tablet by mouth every afternoon. - pantoprazole DR (PROTONIX) 40 mg tablet - albuterol HFA (PROVENTIL HFA, VENTOLIN HFA) 90 mcg/actuation inhaler Inhale 2 Puffs as instructed every 4 hours as needed for wheezing/shortness of breath. - VRAYLAR 3 mg capsule Take 1 capsule by mouth every afternoon. - losartan (COZAAR) 25 mg tablet Take 1 tablet by mouth every afternoon. - benzonatate (TESSALON PERLE) 100 mg capsule Take 2 capsules by mouth three times a day as needed. - escitalopram oxalate (LEXAPRO) 5 mg tablet Take 5 mg by mouth. - hydrOXYzine pamoate (VISTARIL) 50 mg capsule Take 1 capsule by mouth three times daily as needed for Anxiety. - iron polysaccharide complex (FERREX 150) 150 mg iron capsule Take 1 capsule by mouth twice daily. - Brompheniramine-Pseud oeph-DM (BROMFED DM) 2-30-10 mg/5 mL syrup Take 5 mL by mouth four times daily as needed. - FLUoxetine HCl (PROZAC) 40 mg capsule Take 1 capsule by mouth once daily. - ELIQUIS 5 mg tab(s) Take 1 tablet by mouth twice daily. - nicotine (NICODERM) 21 mg/24 hr Apply 1 Patch as directed every 24 hours. For 6 weeks, then wean down - nicotine (NICODERM) 14 mg/24 hr Apply 1 Patch as directed every 24 hours. No smoking with patch. Step 2 for 2 weeks, then wean down - nicotine (NICODERM) 7 mg/24 hr Apply 1 Patch as directed every 24 hours. 2 wks, then stop Medication notes this encounter FLUOXETINE 40 MG CAPSULE >> Renzo Spears MA 10/27/2024 6:58 PM >> RENZO SPEARS [facility] Oct 27, 2024 6:58 PM Problem List As Of Date 10/27/2024 Noted Resolved Anxiety and depression [F41.9, F32.A] GERD (gastroesophageal reflux disease) [K21.9] Obesity (BMI 30-39.9) [E66.9] Tobacco use [Z72.0] Pulmonary embolus with infarc (more content not included)... Normal [facility] MR/BMS.BPon 09-15-2024 MR/BMS.[address], [address] [place] [address] OFFICE VISIT Date of Service: 09/15/24 MR#: [id number] Acct: [id number] Name: MIGUEL MELVIN Rep #: [id number] : 1975 Provider: ROSHAN herzog Age/Sex: 49/F Location: [facility] [place] Status: Signed Intake Vital Signs 08/30/24 11:11 09/15/24 14:59 Height 5 ft 6 in 5 ft 6 in Weight: 254 lb BMI 41.0 BP 103/67 Blood Pressure Location Lt brachial Position Sitting Respiration 20 H Pulse 67 Pulse Source Monitor Pulse Oximetry (%) 98 BP Intake Visit Reasons: follow up Allergies cinnamon Allergy (Verified 08/30/24 14:05) Rash PFSH Medical History Dermatitis Neuropathy Hypersomnolence Anemia Heart attack Cough Borderline type 2 diabetes mellitus Atherosclerotic heart disease of inupiat coronary artery without angina pectoris URI (upper respiratory infection) Bipolar depression Anxiety and depression Bilateral primary osteoarthritis of knee Knee pain, bilateral Abdominal wall abscess Bronchitis Sinusitis Screening for thyroid disorder COVID-19 Right elbow pain Swelling of thyroid gland Enlarged uterus Osteoarthritis of both knees GERD (gastroesophageal reflux disease) Depression Anxiety Alcohol abuse Surgical History Stented coronary artery (11/12/23) Spencer teeth removed History of History of tubal ligation Family History Grandmother Cancer Grandfather Dementia Other Depression with anxiety Social History household members: children housing: house number of children: 4 current occupational status: employed current occupation: [employer] history of recent travel: No sexually active: Yes Smoking Status: Former smoker Tobacco: How many years used: 15 how long ago did patient quit smokin11/12/23 alcohol intake: former year quit: 2019 details: 8 months sober substance use type: does not use diet: diabetic and low carbohydrate caffeine: Yes Type: carbonated beverages Number of servings: 1 what type of physical activity do you participate in: walking seatbelt use: always do you feel safe at home: Yes additional social history: single Female Reproductive History Menstrual Ab induced: 1 HPI History of Present Illness History provided by: patient Chief complaint: Anxiety HPI: Rosa Melvin is a 48 year old female patient presenting today for a follow up evaluation. Reports she has continued to do [employer] and is continuing to work at [employer] as well. D oes feel fatigued from doing both. Reports mood has been mostly good. Foes still continue to have some low days. Denies SI/HI. However does state some stressors at home. Reports her son has moved out and is living with his girlfriend and his girlfriend's father. Has recently done a sleep study and needs to schedule a follow up with [facility] to go over results. Has been wanting to lose weight and has been struggling with this. Previous similar episode: Yes Age of first onset of symptoms: 21-30 years Review of Systems Constitutional Reports: change in weight (recent 15 pound weight loss) and fatigue; Denies: fever(s) or chills Eyes Denies: change in vision or blurry vision Ears, Nose, Mouth, Throat Denies: throat pain or neck pain Cardiovascular Reports: chest pain, palpitations and dyspnea Respiratory Reports: dyspnea and cough; Denies: wheezing Gastrointestinal Denies: abdominal pain, nausea, vomiting, heartburn or diarrhea Genitourinary Denies: dysuria, urinary frequency or urinary urgency Musculoskeletal Denies: back pain or neck pain Integumentary/Breast Denies: rash, pruritus or erythema Neurological Denies: headache(s) Psychiatric Reports: memory loss and difficulty concentrating; Denies: anxiety, change in sleep pattern, loss of interest, irritability, visual hallucinations, auditory hallucinations, suicidal ideation or homicidal ideation Endocrine Reports: fatigue; Denies: polyuria or polydipsia Hematologic/Lymphatic Denies: easy bruising Allergic/Immunologic Denies: wheezing Exam Mental Status Exam - Psych Appearance casually dressed, adequately groomed and no apparent distress Attitude cooperative and calm Activity/Motor Behavior MSE activity/motor behavior finding no adventitious movements and appropriate eye contact Speech regular rate, regular volume and regular prosody Mood euythmic Affect full range Thought Process linear, logical and coherent Thought Content no delusions and no hallucinations Suicidal Ideation none Homicidal Ideation none Attention impaired (per patient self re (more content not included)... Normal [facility] Cardiology Visit Reporton Cardiology Visit Report [facility] [address] [place], [place] [address] OFFICE VISIT Date of Service: 08/30/24 MR#: [id number] Acct: [id number] Name: MIGUEL MELVIN Rep #: [id number] : 1975 Provider: ROSHAN lee Age/Sex: 49/F Location: [facility] Status: Signed HPI HPI History of Present Illness Details: This is a 49-year-old female who presents to the office today for a cardiovascular follow-up. She was initially seen in consultation for ST elevated myocardial infarction in October 2023. She presented to the Emergency Department on 11/12/2023 for midsternal chest pain. Heart catheterization showed a left main with mild luminal irregularities, proximal LAD with 90% stenosis, circumflex with mild luminal irregularities, and RCA with mild luminal irregularities. She proceeded with drug- eluting stent to proximal LAD. She had an echocardiogram that showed an ejection fraction of 65% and no regional wall motion abnormalities. She also has a past medical history of borderline type 2 diabetes, hypertension, previous tobacco abuse, hyperlipidemia, and obesity. From a cardiac standpoint, the patient is doing well. She denies any palpitations, chest pain, pressure or heaviness. She denies SOB, Orthopnea, and PND. She does not have bleeding issues; no blood in urine, stool, or nosebleeds. She denies any decrease in energy level, myalgias, or claudication. She does not have edema, or sudden weight gain. She denies lightheadedness, dizziness, syncopal or near syncopal episodes, and headaches. Intake Vital Signs 08/16/24 15:11 08/30/24 11:11 Height 5 ft 6 in 5 ft 6 in Weight: 254 lb BMI 41.0 BP 103/67 Blood Pressure Location Lt brachial Position Sitting Respiration 20 H Pulse 67 Pulse Source Monitor Pulse Oximetry (%) 98 Intake Visit Reasons: 3 M FU Formula Weigher Required: No Is patient in pain?: No Allergies cinnamon Allergy (Verified 08/30/24 14:05) Rash Medications ???Medication ???Instructions ???Recorded ???Confirmed ???Type albuterol sulfate 90 mcg/actuation 1 - 2 puff inhalation Q6H PRN 08/30/24 Rx aerosol inhaler shortness of breath or wheezing #8.5 grams pantoprazole 40 mg tablet,delayed 40 mg PO DAILY #30 tabs 11/19/23 08/30/24 Rx release hydroxyzine HCl 25 mg tablet 25 mg PO BID PRN anxiety #30 tabs 12/08/23 08/30/24 Rx ferrous sulfate 325 mg (65 mg See Rx Instructions .Route 4 08/30/24 Rx iron) tablet (FeroSul) .COMPLEX supplement #90 tabs folic acid 1 mg tablet 1 mg PO DAILY supplement #90 tabs 12/10/23 08/30/24 Rx buspirone 15 mg tablet 15 mg PO TID #270 tabs 12/15/23 Rx escitalopram oxalate 10 mg tablet 10 mg PO DAILY depression #90 tab s 01/26/24 08/30/24 Rx aspirin 81 mg tablet,delayed 81 mg PO DAILY@0800 #90 tabs 02/0908/30/24 Rx release cariprazine 3 mg capsule (Vraylar) 3 mg PO DAILY mental health #30 04/05/24 08/30/24 Rx caps bupropion HCl 150 mg tablet,12 hr See Rx Instructions .Route 08/30/24 Rx sustained-release .COMPLEX mental health #270 TABLET S hydrocortisone 2.5 % topical cream 1 applic topical BID PRN rash 08/30/24 Rx #453.6 grams norethindrone (contraceptive) 0.35 0.35 mg PO QDAY #28 tabs 5 08/30/24 Rx mg tablet (Savita) atorvastatin 40 mg tablet 40 mg PO QHS #90 tabs 08/30/2401/14 Rx carvedilol 3.125 mg tablet 3.125 mg PO BID #180 tabs 08/30/24 08/30/24 Rx clopidogrel 75 mg tablet 75 mg PO DAILY #90 tabs 08/30/24 0 08/30/24 Rx losartan 25 mg tablet 25 mg PO QDAY blood pressure #90 0 08/30/24 08/30/24 Rx tabs Ejection fraction %: 65 Have you fallen in the past year?: No PFSH Medical History Dermatitis Neuropathy Hypersomnolence Anemia Heart attack Cough Borderline type 2 diabetes mellitus Atherosclerotic heart disease of inupiat coronary artery without angina pectoris URI (upper respiratory infection) Bipolar depression Anxiety and depression Bilateral primary osteoarthritis of knee Knee pain, bilateral Abdominal wall abscess Bronchitis Sinusitis Screening for thyroid disorder COVID-19 Right elbow pain Swelling of thyroid gland Enlarged uterus Osteoarthritis of both knees GERD (gastroesophageal reflux disease) Depression Anxiety Alcohol abuse Surgical History Stented coronary artery (11/12/23) Spencer teeth removed History of History of tubal ligation Family History Grandmother Cancer Grandfather Dementia Other Depression with anxiety Social History household members: children housing: house (more content not included)... Normal [facility] Pelvic w/ Transvaginalon Pelvic w/ Transvaginal [facility] [address] [place], [place] [address] Pelvic w/ Transvaginal MR#: [id number] Acct: [id number] Name: MIGUEL MELVIN Rep #: [id number] : 1975 F 49 From: Jerald Myers MD PCP: Dr. Princess Baca MD Status: REG CLI Study: Pelvic w/ Transvaginal Date of Exam: 08/22/24 Exam# [id number] Ordering Dr: Misti Williamson NP EMISSIONS REPAIR TECHNICIAN -C PROCEDURE: PELVIC W/ TRANSVAGINAL 08/22/2024 REASON FOR EXAM: AUB TECHNIQUE: Transabdominal and transvaginal pelvic ultrasound. Color and spectral doppler analysis of the ovaries. COMPARISON: None. FINDINGS: Measurements: Uterus: 13.3 x 6.6 x 7.8 cm for volume of 355.4 mL Endometrial Thickness: 0.3 cm Right ovary: Not visualized due to shadowing bowel gas Left ovary: 4.7 x 2.6 x 3.3 cm for volume of 20.7 mL Uterus: Anteverted. There is a heterogeneous lesion at the uterine fundus measuring 3.4 x 4.4 x 5.0 cm, without significant internal vascularity. Nabothian cysts at the cervix. Endometrium: Poorly visualized Right ovary: Not visualized due to shadowing bowel gas Left ovary: Normal size and echotexture. Cul-de-sac: No free intraperitoneal fluid identified. DOPPLER: Color Doppler: Normal color flow doppler signal at the left ovary. Spectral Doppler: Normal arterial inflow and venous outflow signal at the left ovary. US/Pelvic w/ Transvaginal IMPRESSION: 1. Heterogeneous lesion at the uterine fundus measuring 5.0 cm, statistically likely to represent a leiomyoma. 2. Nonvisualization of the right ovary. Unremarkable left ovary. Reading Location: [id number] CC: ROSHAN Williamson; Dr. 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 Normal [facility] Saw Grinder Office Visit Reporton 08-16-2024 Saw Grinder Office Visit Report [facility] [address], [address] [place] [address] OFFICE VISIT Date of Service: 08/16/24 MR#: [id number] Acct: [id number] Name: MIGUEL MELVIN Rep #: [id number] : 1975 Provider: ROSHAN bobby Age/Sex: 49/F Location: [facility] Status: Signed Intake Vital Signs 07/27/24 15:59 08/16/24 15:02 08/16/24 15:11 Height 5 ft 6 in 5 ft 6 in 5 ft 6 in Weight: 255 lb 254 lb 6 oz BMI 41.1 41.0 BP 130/86 H 128/72 H Blood Pressure Location Lt brachial Position Sitting Respiration 16 Pulse 66 Pulse Source Monitor Temp 97.6 F L Pulse Oximetry (%) 96 Oxygen Delivery Method room air Intake Visit Reasons: Heavy, frequent menses Chief Complaint: AUB Formula Weigher Required: No Is patient in pain?: No Allergies cinnamon Allergy (Verified 08/16/24 15:17) Rash Medications ???Medication ???Instructions ???Recorded ???Confirmed ???Type albuterol sulfate 90 mcg/actuation 1 - 2 puff inhalation Q6H PRN 08/16/24 Rx aerosol inhaler shortness of breath or wheezing #8.5 grams pantoprazole 40 mg tablet,delayed 40 mg PO DAILY #30 tabs 11/19/23 08/16/24 Rx release hydroxyzine HCl 25 mg tablet 25 mg PO BID PRN anxiety #30 tabs 12/08/23 08/16/24 Rx ferrous sulfate 325 mg (65 mg See Rx Instructions .Route 4 08/16/24 Rx iron) tablet (FeroSul) .COMPLEX supplement #90 tabs folic acid 1 mg tablet 1 mg PO DAILY supplement #90 tabs 12/10/23 08/16/24 Rx buspirone 15 mg tablet 15 mg PO TID #270 tabs 12/15/23 Rx escitalopram oxalate 10 mg tablet 10 mg PO DAILY depression #90 tab s 01/26/24 08/16/24 Rx aspirin 81 mg tablet,delayed 81 mg PO DAILY@0800 #90 tabs 02/0908/16/24 Rx release atorvastatin 40 mg tablet 40 mg PO QHS #90 tabs 02/10/24 Rx carvedilol 3.125 mg tablet 3.125 mg PO BID #180 tabs 02/10/24 08/16/24 Rx clopidogrel 75 mg tablet 75 mg PO DAILY #90 tabs 02/10/24 0 08/16/24 Rx cariprazine 3 mg capsule (Vraylar) 3 mg PO DAILY mental health #30 04/05/24 08/16/24 Rx caps bupropion HCl 150 mg tablet,12 hr See Rx Instructions .Route 08/16/24 Rx sustained-release .COMPLEX mental health #270 TABLET S losartan 25 mg tablet See Rx Instructions .Route 5 08/16/24 Rx .COMPLEX blood pressure #90 tabs hydrocortisone 2.5 % topical cream 1 applic topical BID PRN rash 08/16/24 Rx #453.6 grams Is last menstrual period known: Yes Last Menstrual Period: 08/05/24 Post menopausal: No Patient : No : No Control Method: Tubal PFSH PFSH Medical History Dermatitis Neuropathy Hypersomnolence Anemia Heart attack Cough Borderline type 2 diabetes mellitus Atherosclerotic heart disease of inupiat coronary artery without angina pectoris URI (upper respiratory infection) Bipolar depression Anxiety and depression Bilateral primary osteoarthritis of knee Knee pain, bilateral Abdominal wall abscess Bronchitis Sinusitis Screening for thyroid disorder COVID-19 Right elbow pain Swelling of thyroid gland Enlarged uterus Osteoarthritis of both knees GERD (gastroesophageal reflux disease) Depression Anxiety Alcohol abuse Surgical History Stented coronary artery (11/12/23) Spencer teeth removed History of History of tubal ligation Family History Grandmother Cancer Grandfather Dementia Other Depression with anxiety Social History household members: children housing: house number of children: 4 current occupational status: employed current occupation: [employer] history of recent travel: No sexually active: Yes Smoking Status: Former smoker Tobacco: How many years used: 15 how long ago did patient quit smokin11/12/23 alcohol intake: former year quit: 2019 details: 8 months sober substance use type: does not use diet: diabetic and low carbohydrate caffeine: Yes Type: carbonated beverages Number of servings: 1 what type of physical activity do you participate in: walking seatbelt use: always do you feel safe at home: Yes additional social history: single History 5 Elective abortions 1 Hx Para 4 Spontaneous abortions Hx # Term Pregnancies Ectopic pregnancies Hx # Pregnancies Multiple births # of living children 4 Past Pregnancies Del. Date Name GA/Weeks Outcome Route Bth Weight Infant Gen Labor Lgth Anesthesia Del Locat Provider FOB Unknown Martin1996 Unknown [place] 1996 Unknown [place] 1999 Unknown [facility] 2003 HPI Heavy, frequent (more content not included)... Normal [facility] Surgery Specimen Level Lexy 08-16-2024 Surgery Specimen Level IV -------- Patient Age/Sex Location Account Attending Physician -------- MELVINMIGUEL DEAL HAYLEE 49/F LABSPEC [id number] ROSHAN Lewis -------- Specimen: [id number] Received: 08/16/24 Status: ADELINA Sandhurebeca Num: [id number] Spec Type: SANTIAGO HUTSON/C Smith Dr: ROSHAN Lewis HEADER OPERATION: Endometrial biopsy PRE-OP DIAGNOSIS: Abnormal uterine bleeding TISSUE SUBMITTED: A- Endometrial lining -------- MICROSCOPIC DIAGNOSIS A. Endometrium, biopsy: * Proliferative endometrium, mildly disordered. MICROSCOPIC DESCRIPTION Slides are reviewed. GROSS DESCRIPTION A. Received in formalin in a container labeled with the patient's name, date of , and with the accompanying paperwork indicating, EMB are multiple red-campa fragments of soft tissue admixed with blood and mucus measuring 2.8 x 1.7 x 0.6 cm in aggregate. Submitted in toto in A1-2. [facility] 08-17-2024 CPT: 34755 -------- Patient Age/Sex Location Account Attending Physician -------- MIGUEL MELVIN 49/F LABSPEC [id number] ROSHAN Lewis -------- Signed (signature on file) Dr. Roopa John MD 08/20/24 1604 -------- Normal [facility] Comment on above: Performed By: #### P SUJAMAR ####[facility] [address] [place], [place], [id number] CBC W/Diff, Automatedon 07-21 Absolute Lymph 1.11 X10 3/uL Normal 0.83-4.51 [facility] Comment on above: Performed By: #### L 500.4050, L503.6550, L100.0100, L503.0106, L506.0400, L503.6030, L501.9520 ####[facility] [address] [place], [address] Absolute Neut 8.9 X10 3/uL High 2.0-7.7 [facility] Comment on above: Performed By: #### L 500.4050, L503.6550, L100.0100, L503.0106, L506.0400, L503.6030, L501.9520 ####[facility] [address] [place], [address] Basophils/100 WBC (Bld) 0.2 % Normal 0-1 [facility] Comment on above: Performed By: #### L 500.4050, L503.6550, L100.0100, L503.0106, L506.0400, L503.6030, L501.9520 ####[facility] [address] [place], [address] Eosinophils/100 WBC (Bld) 0.1 % Normal 0-5 [facility] Comment on above: Performed By: #### L 500.4050, L503.6550, L100.0100, L503.0106, L506.0400, L503.6030, L501.9520 ####[facility] [address] [place], [address] Erythrocyte distribution width (RBC) [Ratio] 17.9 % High 11.6-14.6 [facility] Comment on above: Performed By: #### L 500.4050, L503.6550, L100.0100, L503.0106, L506.0400, L503.6030, L501.9520 ####[facility] [address] [place], [address] Hematocrit (Bld) [Volume fraction] 40.5 % Normal 37-47 [facility] Comment on above: Performed By: #### L 500.4050, L503.6550, L100.0100, L503.0106, L506.0400, L503.6030, L501.9520 ####[facility] [address] [place], [address] Hemoglobin (Bld) [Mass/Vol] 12.4 g/dL Normal 12.0-15.0 [facility] Comment on above: Performed By: #### L 500.4050, L503.6550, L100.0100, L503.0106, L506.0400, L503.6030, L501.9520 ####[facility] [address] [place], [address] IG% 0.500 Normal 0.0-0.9 [facility] Comment on above: Result Comment: IG% - Immature Granulocytes (promyelocytes, myelocytes and metamyelocytes) > 1% indicates that a LEFT SHIFT is Present. Performed By: #### L 500.4050, L503.6550, L100.0100, L503.0106, L506.0400, L503.6030, L501.9520 ####[facility] [address] [place], [address] Lymphocytes/100 WBC (Bld) 10.5 % Low 19-41 [facility] Comment on above: Performed By: #### L 500.4050, L503.6550, L100.0100, L503.0106, L506.0400, L503.6030, L501.9520 ####[facility] [address] [place], [address] MCH (RBC) [Entitic mass] 25.3 pg Low 27.0-32.0 [facility] Comment on above: Performed By: #### L 500.4050, L503.6550, L100.0100, L503.0106, L506.0400, L503.6030, L501.9520 ####[facility] [address] [place], [address] MCHC (RBC) [Mass/Vol] 30.6 g/dL Low 32-36 [facility] Comment on above: Performed By: #### L 500.4050, L503.6550, L100.0100, L503.0106, L506.0400, L503.6030, L501.9520 ####[facility] [address] [place], [address] MCV (RBC) [Entitic vol] 82.5 fL Normal 81-99 [facility] Comment on above: Performed By: #### L 500.4050, L503.6550, L100.0100, L503.0106, L506.0400, L503.6030, L501.9520 ####[facility] [address] [place], [address] Monocytes/100 WBC (Bld) 4.4 % Normal 0-10 [facility] Comment on above: Performed By: #### L 500.4050, L503.6550, L100.0100, L503.0106, L506.0400, L503.6030, L501.9520 ####[facility] [address] [place], [address] Neutrophils/100 WBC (Bld) 84.3 % High 47-70 [facility] Comment on above: Performed By: #### L 500.4050, L503.6550, L100.0100, L503.0106, L506.0400, L503.6030, L501.9520 ####[facility] [address] [place], [address] Nucleated RBC (Bld) [#/Vol] 0 10*3/uL Normal 0-5 [facility] Comment on above: Performed By: #### L 500.4050, L503.6550, L100.0100, L503.0106, L506.0400, L503.6030, L501.9520 ####[facility] [address] [place], [address] Platelet mean volume (Bld) [Entitic vol] 11.1 fL Normal 6.2-12.0 [facility] Comment on above: Performed By: #### L 500.4050, L503.6550, L100.0100, L503.0106, L506.0400, L503.6030, L501.9520 ####[facility] [address] [place], [address] Platelets (Bld) [#/Vol] 357 10*3/uL Normal 150-450 [facility] Comment on above: Performed By: #### L 500.4050, L503.6550, L100.0100, L503.0106, L506.0400, L503.6030, L501.9520 ####[facility] [address] [place], [address] RBC (Bld) [#/Vol] 4.91 10*6/uL Normal 4.2-5.4 [facility] Comment on above: Performed By: #### L 500.4050, L503.6550, L100.0100, L503.0106, L506.0400, L503.6030, L501.9520 ####[facility] [address] [place], [address] RDW SD 54.1 fl High 35.1-43.9 [facility] Comment on above: Performed By: #### L 500.4050, L503.6550, L100.0100, L503.0106, L506.0400, L503.6030, L501.9520 ####[facility] [address] [place], [address] WBC (Bld) [#/Vol] 10.6 10*3/uL Normal 4.4-11.0 [facility] Comment on above: Performed By: #### L 500.4050, L503.6550, L100.0100, L503.0106, L506.0400, L503.6030, L501.9520 ####[facility] [address] [place], [address] Comprehensive Metabolic Prof ilon 08-01-2024 Albumin [Mass/Vol] 4.5 g/dL Normal 3.5-5.0 [facility] Comment on above: Performed By: #### L 500.4050, L503.6550, L100.0100, L503.0106, L506.0400, L503.6030, L501.9520 ####[facility] [address] [place], [address] Albumin/Globulin [Mass ratio] 1.4 {ratio} Normal 0.9-2.4 [facility] Comment on above: Performed By: #### L 500.4050, L503.6550, L100.0100, L503.0106, L506.0400, L503.6030, L501.9520 ####[facility] [address] [place], [address] ALK PHOS 107 U/L High 35-104 [facility] Comment on above: Performed By: #### L 500.4050, L503.6550, L100.0100, L503.0106, L506.0400, L503.6030, L501.9520 ####[facility] [address] [place], [address] ALT [Catalytic activity/Vol] 14 U/L Normal <=34 [facility] Comment on above: Performed By: #### L 500.4050, L503.6550, L100.0100, L503.0106, L506.0400, L503.6030, L501.9520 ####[facility] [address] [place], [address] AST [Catalytic activity/Vol] 13 U/L Normal <=31 [facility] Comment on above: Performed By: #### L 500.4050, L503.6550, L100.0100, L503.0106, L506.0400, L503.6030, L501.9520 ####[facility] [address] [place], [address] Bilirubin [Mass/Vol] 0.29 mg/dL Normal 0.00-1.30 [facility] Comment on above: Performed By: #### L 500.4050, L503.6550, L100.0100, L503.0106, L506.0400, L503.6030, L501.9520 ####[facility] [address] [place], [address] BUN/CRE 13.4 RATIO Normal 10-20 [facility] Comment on above: Performed By: #### L 500.4050, L503.6550, L100.0100, L503.0106, L506.0400, L503.6030, L501.9520 ####[facility] [address] [place], [address] Calcium [Mass/Vol] 9.6 mg/dL Normal 7.6-11.0 [facility] Comment on above: Performed By: #### L 500.4050, L503.6550, L100.0100, L503.0106, L506.0400, L503.6030, L501.9520 ####[facility] [address] [place], [address] Chloride [Moles/Vol] 105 mmol/L Normal 98-108 [facility] Comment on above: Performed By: #### L 500.4050, L503.6550, L100.0100, L503.0106, L506.0400, L503.6030, L501.9520 ####[facility] [address] [place], [address] CO2 [Moles/Vol] 21.2 mmol/L Normal 21.0-32.0 [facility] Comment on above: Performed By: #### L 500.4050, L503.6550, L100.0100, L503.0106, L506.0400, L503.6030, L501.9520 ####[facility] [address] [place], [address] Creatinine [Mass/Vol] 0.73 mg/dL Normal 0.70-1.20 [facility] Comment on above: Performed By: #### L 500.4050, L503.6550, L100.0100, L503.0106, L506.0400, L503.6030, L501.9520 ####[facility] [address] [place], [address] GAP 13 Normal 5-15 [facility] Comment on above: Performed By: #### L 500.4050, L503.6550, L100.0100, L503.0106, L506.0400, L503.6030, L501.9520 ####[facility] [address] [place], [address] GFR/1.73 sq M.predicted among non-blacks MDRD (S/P/Bld) [Vol rate/Area] 102 mL/min/{1.73_m2} Normal >60 [facility] Comment on above: Result Comment: mL/m in/1.73m2 CKD-EPI Creatinine Equation (2020) Performed By: #### L 500.4050, L503.6550, L100.0100, L503.0106, L506.0400, L503.6030, L501.9520 ####[facility] [address] [place], [address] Globulin (S) [Mass/Vol] 3.2 g/dL Normal 2.2-4.2 [facility] Comment on above: Performed By: #### L 500.4050, L503.6550, L100.0100, L503.0106, L506.0400, L503.6030, L501.9520 ####[facility] [address] [place], [address] Glucose [Mass/Vol] 147 mg/dL High 70-99 [facility] Comment on above: Performed By: #### L 500.4050, L503.6550, L100.0100, L503.0106, L506.0400, L503.6030, L501.9520 ####[facility] [address] [place], [address] Potassium [Moles/Vol] 4.2 mmol/L Normal 3.3-5.1 [facility] Comment on above: Performed By: #### L 500.4050, L503.6550, L100.0100, L503.0106, L506.0400, L503.6030, L501.9520 ####[facility] [address] [place], [address] Sodium [Moles/Vol] 139 mmol/L Normal 133-145 [facility] Comment on above: Performed By: #### L 500.4050, L503.6550, L100.0100, L503.0106, L506.0400, L503.6030, L501.9520 ####[facility] [address] [place], [address] T PROT 7.7 g/dL Normal 5.9-8.4 [facility] Comment on above: Performed By: #### L 500.4050, L503.6550, L100.0100, L503.0106, L506.0400, L503.6030, L501.9520 ####[facility] [address] [place], [address] Urea nitrogen [Mass/Vol] 10 mg/dL Normal 4-19 [facility] Comment on above: Performed By: #### L 500.4050, L503.6550, L100.0100, L503.0106, L506.0400, L503.6030, L501.9520 ####[facility] [address] [place], [address] Ferritinon 08-01-2024 Ferritin [Mass/Vol] 27 ng/mL Normal 22-378 [facility] Comment on above: Performed By: #### L 500.4050, L503.6550, L100.0100, L503.0106, L506.0400, L503.6030, L501.9520 ####[facility] [address] [place], [address] Iron+Iron Binding Capacityon 08-01-2024 Iron [Mass/Vol] 181 ug/dL High 50-170 [facility] Comment on above: Performed By: #### L 500.4050, L503.6550, L100.0100, L503.0106, L506.0400, L503.6030, L501.9520 ####[facility] [address] [place], [address] IRON SATURATION 46.0 Normal 13-59 [facility] Comment on above: Performed By: #### L 500.4050, L503.6550, L100.0100, L503.0106, L506.0400, L503.6030, L501.9520 ####[facility] [address] [place], [address] TIBC 394 ug/dL Normal 250-450 [facility] Comment on above: Performed By: #### L 500.4050, L503.6550, L100.0100, L503.0106, L506.0400, L503.6030, L501.9520 ####[facility] [address] [place], [address] UIBC 213 ug/dL Low 228-428 [facility] Comment on above: Performed By: #### L 500.4050, L503.6550, L100.0100, L503.0106, L506.0400, L503.6030, L501.9520 ####[facility] [address] [place], [address] T4 Free Directon 08-01-2024 T4 FREE DIRECT 1.30 ng/dL Normal 0.76-1.46 [facility] Comment on above: Performed By: #### L 500.4050, L503.6550, L100.0100, L503.0106, L506.0400, L503.6030, L501.9520 ####[facility] [address] [place], [address] Thyroid Stim Hormone (TSH)on 08-01-2024 TSH 0.846 uIU/mL Normal 0.300-4.200 [facility] Comment on above: Performed By: #### L 500.4050, L503.6550, L100.0100, L503.0106, L506.0400, L503.6030, L501.9520 ####[facility] [address] [place], [address] Vitamin B12on 08-01-2024 Cobalamin (Vitamin B12) [Mass/Vol] 313 pg/mL Normal 180-914 [facility] Comment on above: Performed By: #### L 500.4050, L503.6550, L100.0100, L503.0106, L506.0400, L503.6030, L501.9520 ####[facility] [address] [place], [address] Internal Medicine Office Vis iton 07-27-2024 Internal Medicine Office Visit [facility] [address] [place] [address] [place] [address] OFFICE VISIT Date of Service: 07/27/24 MR#: [id number] Acct: [id number] Name: MIGUEL MELVIN Rep #: [id number] : 1975 Provider: Dr. Princess jesus MD Age/Sex: 49/F Location: [facility] [place] Status: Signed Intake Vital Signs 04/20/24 17:54 06/20/24 14:14 07/27/24 15:59 Height 5 ft 6 in 5 ft 6 in 5 ft 6 in Weight: 255 lb BMI 41.1 BP 130/86 H Blood Pressure Location Lt brachial Position Sitting Respiration 16 Pulse 66 Pulse Source Monitor Temp 97.6 F L Temp Source Temporal Pulse Oximetry (%) 96 Oxygen Delivery Method room air Intake Visit Reasons: 3 M FU Chief Complaint: Follow-up chronic conditions. Rash, itching Formula Weigher Required: No Is patient in pain?: No Allergies cinnamon Allergy (Verified 07/27/24 15:48) Rash Medications ???Medication ???Instructions ???Recorded ???Confirmed ???Type albuterol sulfate 90 mcg/actuation 1 - 2 puff inhalation Q6H PRN 07/27/24 Rx aerosol inhaler shortness of breath or wheezing #8.5 grams pantoprazole 40 mg tablet,delayed 40 mg PO DAILY #30 tabs 11/19/23 07/27/24 Rx release hydroxyzine HCl 25 mg tablet 25 mg PO BID PRN anxiety #30 tabs 12/08/23 07/27/24 Rx ferrous sulfate 325 mg (65 mg See Rx Instructions .Route 4 07/27/24 Rx iron) tablet (FeroSul) .COMPLEX supplement #90 tabs folic acid 1 mg tablet 1 mg PO DAILY supplement #90 tabs 12/10/23 07/27/24 Rx buspirone 15 mg tablet 15 mg PO TID #270 tabs 12/15/23 Rx escitalopram oxalate 10 mg tablet 10 mg PO DAILY depression #90 tab s 01/26/24 07/27/24 Rx aspirin 81 mg tablet,delayed 81 mg PO DAILY@0800 #90 tabs 02/0907/27/24 Rx release atorvastatin 40 mg tablet 40 mg PO QHS #90 tabs 02/10/2410/14 Rx carvedilol 3.125 mg tablet 3.125 mg PO BID #180 tabs 02/10/24 07/27/24 Rx clopidogrel 75 mg tablet 75 mg PO DAILY #90 tabs 02/10/24 0 07/27/24 Rx cariprazine 3 mg capsule (Vraylar) 3 mg PO DAILY mental health #30 04/05/24 07/27/24 Rx caps bupropion HCl 150 mg tablet,12 hr See Rx Instructions .Route 07/27/24 Rx sustained-release .COMPLEX mental health #270 TABLET S losartan 25 mg tablet See Rx Instructions .Route 5 07/27/24 Rx .COMPLEX blood pressure #90 tabs hydrocortisone 2.5 % topical cream 1 applic topical BID PRN rash 07/27/24 Rx #453.6 grams PFSH Medical History Dermatitis Neuropathy Hypersomnolence Anemia Health care maintenance Heart attack UTI (urinary tract infection) Cough Borderline type 2 diabetes mellitus Atherosclerotic heart disease of inupiat coronary artery without angina pectoris URI (upper respiratory infection) Flu vaccine need Bipolar depression Anxiety and depression Bilateral primary osteoarthritis of knee Knee pain, bilateral Abdominal wall abscess Bronchitis Obesity Sinusitis Screening for thyroid disorder COVID-19 Right elbow pain Swelling of thyroid gland Acute maxillary sinusitis, unspecified Enlarged uterus Osteoarthritis of both knees Sebaceous cyst Hypertension GERD (gastroesophageal reflux disease) Depression Anxiety Alcohol abuse Surgical History Stented coronary artery (11/12/23) Spencer teeth removed History of History of tubal ligation Family History Grandmother Cancer Grandfather Dementia Other Depression with anxiety Social History household members: children housing: house number of children: 4 current occupational status: employed current occupation: [employer] history of recent travel: No sexually active: Yes Smoking Status: Former smoker Tobacco: How many years used: 15 how long ago did patient quit smokin11/12/23 alcohol intake: former year quit: 2019 details: 8 months sober substance use type: does not use diet: diabetic and low carbohydrate caffeine: Yes Type: carbonated beverages Number of servings: 1 what type of physical activity do you participate in: walking seatbelt use: always do you feel safe at home: Yes additional social history: single Female Reproductive History Menstrual Ab induced: 1 HPI HPI Chief Complaint: Follow-up chronic conditions. Rash, itching Details: MIGUEL MELVIN, is a 49 F who presents to the office today for follow-up of her chronic conditions. Also has some concerns. She reports itching and rash of her hands and feet. No known precipitating factor. Has tried to make some changes without any significant improvement. No prior history in the past. She sta (more content not included)... [facility] ([facility] ) MIGUEL MELVIN ([id number]) 1975 F Date Time Provider Department 05/09/24 2:00 PM JOSE MANUEL COLUNGA RUST During your visit today, we recorded the following information about you: Temperature Pulse Respiration Blood pressure 97 degrees 60/minute 16/minute 136/82 Weight 113.1 kg Jose Manuel Colunga PA-C 05/09/2024 2:07 PM Signed This note was created using [email or web address]. Subjective Miguel Melvin is a 48 year old female. Patient is a 48-year-old female who complains of acute onset of bright red hives with intense itching that developed to her bilateral feet yesterday. Patient states that the remainder of the skin to her BSA is unaffected and clear. Patient denies facial swelling, dysphagia, wheezing, shortness of breath or other symptoms. Patient did take Benadryl last evening and does report some improvement in her symptoms. Patient reports that she did experience a similar episode previously but did not seek medical attention for same. Patient states that her symptoms resolved spontaneously. Patient has multiple environmental allergies to include an allergy to cinnamon that she does work with at her job. Hives Associated symptoms include a rash. Review of Systems Skin: Positive for rash. Hives and Itching to Bilateral Feet All other systems reviewed and are negative. Objective BP 136/82 Pulse 60 Temp 36.1 ?C (97 ?F) (Tympanic) Resp 16 Wt 113.1 kg (249 lb 5.4 oz) LMP 09/26/2023 (Exact Date) SpO2 98% BMI 39.48 kg/m? Physical Exam Vitals and nursing note reviewed. Constitutional: Appearance: Normal appearance. She is normal weight. HENT: Head: Normocephalic and atraumatic. Nose: Nose normal. Mouth/Throat: Mouth: Mucous membranes are moist. Pharynx: Oropharynx is clear. Eyes: Extraocular Movements: Extraocular movements intact. Conjunctiva/sclera: Conjunctivae normal. Pupils: Pupils are equal, round, and reactive to light. Cardiovascular: Rate and Rhythm: Normal rate. Pulses: Normal pulses. Pulmonary: Effort: Pulmonary effort is normal. Breath sounds: Normal breath sounds. Musculoskeletal: Cervical back: Normal range of motion and neck supple. Skin: General: Skin is warm and dry. Capillary Refill: Capillary refill takes less than 2 seconds. Findings: Erythema and rash present. No bruising or lesion. Comments: Mild erythematous urticaria is noted to the skin of the dorsal bilateral feet. There is a mild degree of soft tissue edema noted. MSP to the bilateral feet and toes is fully intact and the patient is bearing weight and ambulating without difficulty. Remainder of exam to the skin of the BSA is unremarkable. Neurological: General: No focal deficit present. Mental Status: She is alert and oriented to person, place, and time. Psychiatric: Mood and Affect: Mood normal. Behavior: Behavior normal. Thought Content: Thought content normal. Judgment: Judgment normal. Assessment and Plan Physical exam findings as noted above. Patient was advised to continue Benadryl or other antihistamine and she was provided with a prescription for prednisone 20 mg. Patient was strongly advised that if she experiences further episodes of similar symptoms she will need to see her primary care physician for further evaluation and management. Patient verbalizes clear understanding the above instructions. CLINICAL IMPRESSION: Urticaria Bilateral Feet--Etiology Unknown ASSESSMENT/PLAN: 1. Urticaria of unknown origin - ICD9: 708.9, ICD10: L50.9 - PREDNISONE 20 MG TABLET Jose Manuel Colunga PA-C Allergies As of Date: 05/09/2024 Noted Allergy Reaction CINNAMON 06/11/2017 4 - Hives CYMBALTA (DULOXETINE) 12/14/2017 14 - Other: See Comments Comments: Jaw clenching Date Reviewed: 05/09/2024 Reviewed by: Megan Ko LPN - Fully Assessed Reason for Visit: Hives [56] Cmt: Hives on both feet x 1 day Primary Visit Diagnosis:Urticaria of unknown origin [L50.9] Order(s):predniSONE (DELTASONE) 20 mg tabletTake 1 tablet by mouth two times a day for 5 days.Disp: 10 tabletRfl: 0 Prescriptions as of 05/09/2024 - predniSONE (DELTASONE) 20 mg tablet Take 1 tablet by mouth two times a day for 5 days. - aspirin, enteric coated (ASPIRIN, ENTERIC COATED) 81 mg EC tablet - atorvastatin (LIPITOR) 40 mg tablet - carvedilol (COREG) 3.125 mg tablet - busPIRone (BUSPAR) 15 mg tablet Take 15 mg by mouth three times a day. - clopidogrel (PLAVIX) 75 mg tablet - folic acid 1 mg tablet Take 1 tablet by mouth every afternoon. - pantoprazole DR (PROTONIX) 40 mg tablet - albuterol HFA (PROVENTIL HFA, VENTOLIN HFA) 90 mcg/actuation inhaler Inhale 2 Puffs as instructed every 4 hours as needed for wheezing/shortness of breath. - VRAYLAR 3 mg capsule Take 1 capsule by mouth every afternoon. - losartan (COZAAR) 25 mg tablet Take 1 tablet by m (more content not included)... Normal [facility] Ferritinon 04-27-2024 Ferritin [Mass/Vol] 7 ng/mL Low 8-252 [facility] Comment on above: Performed By: #### L 503.5916, L503.5983, L503.6100 ####[facility] [address] [place], [address] Ironon 04-27-2024 Iron [Mass/Vol] 17 ug/dL Low 50-170 [facility] Comment on above: Performed By: #### L 503.6075, L503.6550, L503.6150 ####[facility] [address] [place], [address] Iron Binding Capacity,Totalo n 04-27-2024 TIBC 484 ug/dL High 250-450 [facility] Comment on above: Performed By: #### L 503.6075, L503.6550, L503.6150 ####[facility] [address], [address] Bilirubin, Directon 04-25-19 25 Bilirubin.direct [Mass/Vol] 0.14 mg/dL Normal 0.00-0.30 [facility] Comment on above: Order Comment: DR. Niraj DANIELS ORDERED CBCD, CMP, AND LIPID [facility] ORDERED LIVER AND LIPID Performed By: #### L 501.4700, L100.0100, L500.4100, L500.4050 #### [facility] [address] [place], [address] CBC W/Diff, Automatedon Absolute Lymph 1.87 X10 3/uL Normal 0.83-4.51 [facility] Comment on above: Order Comment: DR. Niraj DANIELS ORDERED CBCD, CMP, AND LIPID [facility] ORDERED LIVER AND LIPID Performed By: #### L 501.4700, L100.0100, L500.4100, L500.4050 #### [facility] [address] [place], [address] Absolute Neut 4.1 X10 3/uL Normal 2.0-7.7 [facility] Comment on above: Order Comment: DR. Niraj DANIELS ORDERED CBCD, CMP, AND LIPID [facility] ORDERED LIVER AND LIPID Performed By: #### L 501.4700, L100.0100, L500.4100, L500.4050 #### [facility] [address] [place], [address] Basophils/100 WBC (Bld) 0.6 % Normal 0-1 [facility] Comment on above: Order Comment: DR. Niraj DANIELS ORDERED CBCD, CMP, AND LIPID [facility] ORDERED LIVER AND LIPID Performed By: #### L 501.4700, L100.0100, L500.4100, L500.4050 #### [facility] [address] [place], [address] Eosinophils/100 WBC (Bld) 2.4 % Normal 0-5 [facility] Comment on above: Order Comment: DR. Niraj DANIELS ORDERED CBCD, CMP, AND LIPID [facility] ORDERED LIVER AND LIPID Performed By: #### L 501.4700, L100.0100, L500.4100, L500.4050 #### [facility] [address] [place], [address] Erythrocyte distribution width (RBC) [Ratio] 15.7 % High 11.6-14.6 [facility] Comment on above: Order Comment: DR. Niraj DANIELS ORDERED CBCD, CMP, AND LIPID THEA [facility]ICK ORDERED LIVER AND LIPID Performed By: #### L 501.4700, L100.0100, L500.4100, L500.4050 #### [facility] [address] [place], [address] Hematocrit (Bld) [Volume fraction] 36.0 % Low 37-47 [facility] Comment on above: Order Comment: DR. Niraj DANIELS ORDERED CBCD, CMP, AND LIPID [facility] ORDERED LIVER AND LIPID Performed By: #### L 501.4700, L100.0100, L500.4100, L500.4050 #### [facility] [address] [place], [address] Hemoglobin (Bld) [Mass/Vol] 10.6 g/dL Low 12.0-15.0 [facility] Comment on above: Order Comment: DR. Niraj DANIELS ORDERED CBCD, CMP, AND LIPID [facility] ORDERED LIVER AND LIPID Performed By: #### L 501.4700, L100.0100, L500.4100, L500.4050 #### [facility] [address] [place], [address] IG% 0.500 Normal 0.0-0.9 [facility] Comment on above: Order Comment: DR. Niraj DANIELS ORDERED CBCD, CMP, AND LIPID [facility] ORDERED LIVER AND LIPID Result Comment: IG% - Immature Granulocytes (promyelocytes, myelocytes and metamyelocytes) > 1% indicates that a LEFT SHIFT is Present. Performed By: #### L 501.4700, L100.0100, L500.4100, L500.4050 #### [facility] [address] [place], [address] Lymphocytes/100 WBC (Bld) 28.1 % Normal 19-41 [facility] Comment on above: Order Comment: DR. Niraj DANIELS ORDERED CBCD, CMP, AND LIPID [facility] ORDERED LIVER AND LIPID Performed By: #### L 501.4700, L100.0100, L500.4100, L500.4050 #### [facility] [address] [place], [address] MCH (RBC) [Entitic mass] 22.6 pg Low 27.0-32.0 [facility] Comment on above: Order Comment: DR. Niraj DANIELS ORDERED CBCD, CMP, AND LIPID [facility] ORDERED LIVER AND LIPID Performed By: #### L 501.4700, L100.0100, L500.4100, L500.4050 #### [facility] [address] [place], [address] MCHC (RBC) [Mass/Vol] 29.4 g/dL Low 32-36 [facility] Comment on above: Order Comment: DR. Niraj DANIELS ORDERED CBCD, CMP, AND LIPID [facility] ORDERED LIVER AND LIPID Performed By: #### L 501.4700, L100.0100, L500.4100, L500.4050 #### [facility] [address], [address] MCV (RBC) [Entitic vol] 76.6 fL Low 81-99 [facility] Comment on above: Order Comment: DR. Niraj DANIELS ORDERED CBCD, CMP, AND LIPID [facility] ORDERED LIVER AND LIPID Performed By: #### L 501.4700, L100.0100, L500.4100, L500.4050 #### [facility] [address] [place], [address] Monocytes/100 WBC (Bld) 6.9 % Normal 0-10 [facility] Comment on above: Order Comment: DR. Niraj DANIELS ORDERED CBCD, CMP, AND LIPID [facility] ORDERED LIVER AND LIPID Performed By: #### L 501.4700, L100.0100, L500.4100, L500.4050 #### [facility] [address] [place], [address] Neutrophils/100 WBC (Bld) 61.5 % Normal 47-70 [facility] Comment on above: Order Comment: DR. Niraj DANIELS ORDERED CBCD, CMP, AND LIPID [facility] ORDERED LIVER AND LIPID Performed By: #### L 501.4700, L100.0100, L500.4100, L500.4050 #### [facility] [address] [place], [address] Nucleated RBC (Bld) [#/Vol] 0 10*3/uL Normal 0-5 [facility] Comment on above: Order Comment: DR. Niraj DANIELS ORDERED CBCD, CMP, AND LIPID [facility] ORDERED LIVER AND LIPID Performed By: #### L 501.4700, L100.0100, L500.4100, L500.4050 #### [facility] [address] [place], [address] Platelet mean volume (Bld) [Entitic vol] 10.8 fL Normal 6.2-12.0 [facility] Comment on above: Order Comment: DR. Niraj DANIELS ORDERED CBCD, CMP, AND LIPID [facility] ORDERED LIVER AND LIPID Performed By: #### L 501.4700, L100.0100, L500.4100, L500.4050 #### [facility] [address] [place], [address] Platelets (Bld) [#/Vol] 334 10*3/uL Normal 150-450 [facility] Comment on above: Order Comment: DR. Niraj DANIELS ORDERED CBCD, CMP, AND LIPID THEA AGUIRRE ORDERED LIVER AND LIPID Performed By: #### L 501.4700, L100.0100, L500.4100, L500.4050 #### [facility] [address] [place], [address] RBC (Bld) [#/Vol] 4.70 10*6/uL Normal 4.2-5.4 [facility] Comment on above: Order Comment: DR. Niraj DANIELS ORDERED CBCD, CMP, AND LIPID THEA AGUIRRE ORDERED LIVER AND LIPID Performed By: #### L 501.4700, L100.0100, L500.4100, L500.4050 #### [facility] [address] [place], [address] RDW SD 43.1 fl Normal 35.1-43.9 [facility] Comment on above: Order Comment: DR. Niraj DANIELS ORDERED CBCD, CMP, AND LIPID THEA VICK ORDERED LIVER AND LIPID Performed By: #### L 501.4700, L100.0100, L500.4100, L500.4050 #### [facility] [address] [place], [address] WBC (Bld) [#/Vol] 6.7 10*3/uL Normal 4.4-11.0 [facility] Comment on above: Order Comment: DR. Niraj DANIELS ORDERED CBCD, CMP, AND LIPID [facility] ORDERED LIVER AND LIPID Performed By: #### L 501.4700, L100.0100, L500.4100, L500.4050 #### [facility] [address] [place], [address] Comprehensive Metabolic Prof ilon 04-25-2024 Albumin [Mass/Vol] 3.7 g/dL Normal 3.2-5.0 [facility] Comment on above: Order Comment: DR. Niraj DANIELS ORDERED CBCD, CMP, AND LIPID [facility] ORDERED LIVER AND LIPID Performed By: #### L 501.4700, L100.0100, L500.4100, L500.4050 #### [facility] [address] [place], [address] Albumin/Globulin [Mass ratio] 0.9 {ratio} Normal 0.9-2.4 [facility] Comment on above: Order Comment: DR. Niraj DANIELS ORDERED CBCD, CMP, AND LIPID [facility] ORDERED LIVER AND LIPID Performed By: #### L 501.4700, L100.0100, L500.4100, L500.4050 #### [facility] [address] [place], [address] ALK P 118 U/L High 45-117 [facility] Comment on above: Order Comment: DR. Niraj DANIELS ORDERED CBCD, CMP, AND LIPID [facility] ORDERED LIVER AND LIPID Performed By: #### L 501.4700, L100.0100, L500.4100, L500.4050 #### [facility] [address] [place], [address] ALT [Catalytic activity/Vol] 31 U/L Normal 13-56 [facility] Comment on above: Order Comment: DR. Niraj DANIELS ORDERED CBCD, CMP, AND LIPID [facility] ORDERED LIVER AND LIPID Performed By: #### L 501.4700, L100.0100, L500.4100, L500.4050 #### [facility] [address] [place], [address] AST [Catalytic activity/Vol] 17 U/L Normal 15-37 [facility] Comment on above: Order Comment: DR. Niraj DANIELS ORDERED CBCD, CMP, AND LIPID THEA AGUIRRE ORDERED LIVER AND LIPID Performed By: #### L 501.4700, L100.0100, L500.4100, L500.4050 #### [facility] [address] [place], [address] Bilirubin [Mass/Vol] 0.40 mg/dL Normal 0.20-1.00 [facility] Comment on above: Order Comment: DR. Niraj DANIELS ORDERED CBCD, CMP, AND LIPID THEA AGUIRRE ORDERED LIVER AND LIPID Result Comment: For patients on eltrombopag therapy, use of [place] TBIL is not recommended. Performed By: #### L 501.4700, L100.0100, L500.4100, L500.4050 #### [facility] [address] [place], [id number] BUN/CRE 10.2 RATIO Normal 10-20 [facility] Comment on above: Order Comment: DR. Niraj DANIELS ORDERED CBCD, CMP, AND LIPID THEA AGUIRRE ORDERED LIVER AND LIPID Performed By: #### L 501.4700, L100.0100, L500.4100, L500.4050 #### [facility] [address] [place], [address] CA,Total 8.9 mg/dL Normal 8.5-10.1 [facility] Comment on above: Order Comment: DR. Niraj DANIELS ORDERED CBCD, CMP, AND LIPID THEA AGUIRRE ORDERED LIVER AND LIPID Performed By: #### L 501.4700, L100.0100, L500.4100, L500.4050 #### [facility] [address] [place], [address] Chloride [Moles/Vol] 106 mmol/L Normal 98-107 [facility] Comment on above: Order Comment: DR. Niraj DANIELS ORDERED CBCD, CMP, AND LIPID THEA AGUIRRE ORDERED LIVER AND LIPID Performed By: #### L 501.4700, L100.0100, L500.4100, L500.4050 #### [facility] [address] [place], [address] CO2 [Moles/Vol] 23.0 mmol/L Normal 21.0-32.0 [facility] Comment on above: Order Comment: DR. Niraj DANIELS ORDERED CBCD, CMP, AND LIPID THEA VICK ORDERED LIVER AND LIPID Performed By: #### L 501.4700, L100.0100, L500.4100, L500.4050 #### [facility] [address] [place], [address] Creatinine [Mass/Vol] 0.98 mg/dL Normal 0.55-1.02 [facility] Comment on above: Order Comment: DR. Niraj DANIELS ORDERED CBCD, CMP, AND LIPID THEA VICK ORDERED LIVER AND LIPID Result Comment: The validity of the calculated GFR GFRAA in patients over 70 years has not been determined. Clinical correlation is essential. Performed By: #### L 501.4700, L100.0100, L500.4100, L500.4050 #### [facility] [address] [place], [address] EST GFR - AA 78 mL/min Normal >60 [facility] Comment on above: Order Comment: DR. Niraj DANIELS ORDERED CBCD, CMP, AND LIPID THEA AGUIRRE ORDERED LIVER AND LIPID Result Comment: Afri can [place] GFR Calc Performed By: #### L 501.4700, L100.0100, L500.4100, L500.4050 #### [facility] [address] [place], [address] GAP 8 Normal 5-15 [facility] Comment on above: Order Comment: DR. Niraj DANIELS ORDERED CBCD, CMP, AND LIPID THEA AGUIRRE ORDERED LIVER AND LIPID Performed By: #### L 501.4700, L100.0100, L500.4100, L500.4050 #### [facility] [address] [place], [address] GFR/1.73 sq M.predicted among non-blacks MDRD (S/P/Bld) [Vol rate/Area] 65 mL/min/{1.73_m2} Normal >60 [facility] Comment on above: Order Comment: DR. Niraj DANIELS ORDERED CBCD, CMP, AND LIPID THEA AGUIRRE ORDERED LIVER AND LIPID Result Comment: Non- GFR Calc Performed By: #### L 501.4700, L100.0100, L500.4100, L500.4050 #### [facility] [address] [place], [address] Globulin (S) [Mass/Vol] 4.1 g/dL Normal 2.2-4.2 [facility] Comment on above: Order Comment: DR. Niraj DANIELS ORDERED CBCD, CMP, AND LIPID THEA AGUIRRE ORDERED LIVER AND LIPID Performed By: #### L 501.4700, L100.0100, L500.4100, L500.4050 #### [facility] [address] [place], [address] Glucose [Mass/Vol] 103 mg/dL Normal 74-106 [facility] Comment on above: Order Comment: DR. Niraj DANIELS ORDERED CBCD, CMP, AND LIPID THEA AGUIRRE ORDERED LIVER AND LIPID Result Comment: Fast ing Glucose result from 100 to 125 mg/dL suggests IMPAIRED HOMEOSTASIS per A.D.A. criteria. Performed By: #### L 501.4700, L100.0100, L500.4100, L500.4050 #### [facility] [address] [place], [address] Potassium [Moles/Vol] 3.7 mmol/L Normal 3.5-5.1 [facility] Comment on above: Order Comment: DR. Niraj DANIELS ORDERED CBCD, CMP, AND LIPID THEA AGUIRRE ORDERED LIVER AND LIPID Performed By: #### L 501.4700, L100.0100, L500.4100, L500.4050 #### [facility] [address] [place], [address] Sodium [Moles/Vol] 137 mmol/L Normal 136-145 [facility] Comment on above: Order Comment: DR. Niraj DANIELS ORDERED CBCD, CMP, AND LIPID [facility] ORDERED LIVER AND LIPID Performed By: #### L 501.4700, L100.0100, L500.4100, L500.4050 #### [facility] [address] [place], [address] T PROT 7.8 g/dL Normal 6.4-8.2 [facility] Comment on above: Order Comment: DR. Niraj DANIELS ORDERED CBCD, CMP, AND LIPID [facility] ORDERED LIVER AND LIPID Performed By: #### L 501.4700, L100.0100, L500.4100, L500.4050 #### [facility] [address] [place], [address] Urea nitrogen [Mass/Vol] 10 mg/dL Normal 7-18 [facility] Comment on above: Order Comment: DR. Niraj DANIELS ORDERED CBCD, CMP, AND LIPID [facility] ORDERED LIVER AND LIPID Performed By: #### L 501.4700, L100.0100, L500.4100, L500.4050 #### [facility] [address] [place], [address] Lipid Profileon 04-25-2024 Cholesterol [Mass/Vol] 146 mg/dL Normal 200 [facility] Comment on above: Order Comment: DR. Niraj DANIELS ORDERED CBCD, CMP, AND LIPID [facility] ORDERED LIVER AND LIPID Result Comment: <200 mg/dL Desirable 200-240 mg/dL Borderline >240 mg/dL High Risk Performed By: #### L 501.4700, L100.0100, L500.4100, L500.4050 #### [facility] [address] [place], [address] Cholesterol in HDL [Mass/Vol] 71 mg/dL Normal [facility] Comment on above: Order Comment: DR. Niraj DANIELS ORDERED CBCD, CMP, AND LIPID [facility] ORDERED LIVER AND LIPID Result Comment: The drugs N-Acetylcysteine and Metamizole may falsely depress this assay. Reference Range HDL <40 mg/dL Low HDL Cholesterol HDL >or= 60 mg/dL High HDL Cholesterol Performed By: #### L 501.4700, L100.0100, L500.4100, L500.4050 #### [facility] [address] [place], [address] Cholesterol in LDL [Mass/Vol] 61 mg/dL Normal 0-130 [facility] Comment on above: Order Comment: DR. Niraj DANIELS ORDERED CBCD, CMP, AND LIPID [facility] ORDERED LIVER AND LIPID Performed By: #### L 501.4700, L100.0100, L500.4100, L500.4050 #### [facility] [address] [place], [address] Cholesterol in VLDL [Mass/Vol] 14 mg/dL Normal 5-40 [facility] Comment on above: Order Comment: DR. Niraj DANIELS ORDERED CBCD, CMP, AND LIPID [facility] ORDERED LIVER AND LIPID Performed By: #### L 501.4700, L100.0100, L500.4100, L500.4050 #### [facility] [address] [place], [address] Triglyceride [Mass/Vol] 71 mg/dL Normal [facility] Comment on above: Order Comment: DR. Niraj DANIELS ORDERED CBCD, CMP, AND LIPID [facility] ORDERED LIVER AND LIPID Result Comment: The drugs N-Acetylcysteine and Metamizole may falsely depress this assay. Serum Triglycerides Reference Interval Normal <150 mg/dL Borderline high 150 - 199 mg/dL High 200 - 499 mg/dL Very High > or = 500 mg/dL Performed By: #### L 501.4700, L100.0100, L500.4100, L500.4050 #### [facility] [address] [place], [address] Liver Profileon 04-25-2024 ALB Normal 3.2-5.0 [facility] Comment on above: Result Comment: ADDRosa D TO DR. BACA Performed By: #### L 500.3400 ####[facility] [address] [place], [address] ALK P Normal 45-117 [facility] Comment on above: Result Comment: ADDE D TO DR. BACA Performed By: #### L 500.3400 ####[facility] [address] [place], [address] ALT Normal 13-56 [facility] Comment on above: Result Comment: ADDRosa D TO DR. BACA Performed By: #### L 500.3400 ####[facility] [address] [place], [address] AST Normal 15-37 [facility] Comment on above: Result Comment: ADDRosa D TO DR. BACA Performed By: #### L 500.3400 ####[facility] [address] [place], [address] D BILI Normal 0.00-0.30 [facility] Comment on above: Result Comment: ADDRosa D TO DR. BACA Performed By: #### L 500.3400 ####[facility] [address] [place], [address] T BILI Normal 0.20-1.00 [facility] Comment on above: Result Comment: MELVI D TO DR. BACA Performed By: #### L 500.3400 ####[facility] [address] [place], [address] T PROT Normal 6.4-8.2 [facility] Comment on above: Result Comment: MELVI D TO DR. BACA Performed By: #### L 500.3400 ####[facility] [address] [place], [address] Office Visit Reporton 2024 Office Visit Report [facility] [address] [place] [address] OFFICE VISIT Date of Service: 04/25/24 MR#: [id number] Acct: [id number] Patient: MIGUEL MELVIN Rep #: [id number] : 1975 Provider: RICARDO NURSE Age/Sex: 48/F Location: [facility] [place] Status: Signed Intake Vital Signs 04/20/24 17:54 04/25/24 14:49 Height 5 ft 6 in Weight: 249 lb 2 oz BMI 40.1 BP 138/78 H 128/80 H Blood Pressure Location Lt brachial Rt brachial Position Sitting Sitting Respiration 16 Pulse 68 Pulse Source Monitor Temp 98 F Temp Source Temporal Pulse Oximetry (%) 98 Oxygen Delivery Method room air Intake Visit Reasons: bp chk Chief Complaint: bp check Allergies cinnamon Allergy (Verified 04/20/24 17:44) Rash 04/25/24 175 Date Princess Valentine Signature: Date (if applicable) CC: Normal [facility] Internal Medicine Office Vis iton 04-20-2024 Internal Medicine Office Visit [facility] [address] [place], [place] [address] OFFICE VISIT Date of Service: 04/20/24 MR#: [id number] Acct: [id number] Name: MIGUEL MELVIN Rep #: [id number] : 1975 Provider: Dr. Princess jesus MD Age/Sex: 48/F Location: [facility] [place] Status: Signed Intake Vital Signs 02/23/24 07:54 03/17/24 14:48 04/05/24 15:24 04/20/24 17:54 Height 5 ft 6 in 5 ft 6 in 5 ft 6 in 5 ft 6 in Weight: 249 lb 2 oz BMI 40.1 BP 138/78 H Blood Pressure Location Lt brachial Position Sitting Respiration 16 Pulse 68 Pulse Source Monitor Temp 98 F Temp Source Temporal Pulse Oximetry (%) 98 Oxygen Delivery Method room air Intake Visit Reasons: MED FU Chief Complaint: Follow-up chronic conditions Formula Weigher Required: No Accompanied by: Self Is patient in pain?: No Allergies cinnamon Allergy (Verified 04/20/24 17:44) Rash Medications ???Medication ???Instructions ???Recorded ???Confirmed ???Type albuterol sulfate 90 mcg/actuation 1 - 2 puff inhalation Q6H PRN 03/26/21 04/20/24 Rx aerosol inhaler shortness of breath or wheezing #8.5 grams bupropion HCl 150 mg tablet,12 hr See Rx Instructions .Route 07/10/23 04/20/24 Rx sustained-release .COMPLEX mental health #270 TABLETS pantoprazole 40 mg tablet,delayed 40 mg PO DAILY #30 tabs 11/19/23 04/20/24 Rx release hydroxyzine HCl 25 mg tablet 25 mg PO BID PRN anxiety #30 tabs 12/08/23 04/20/24 Rx ferrous sulfate 325 mg (65 mg See Rx Instructions .Route 12/10/23 04/20/24 Rx iron) tablet (FeroSul) .COMPLEX supplement #90 tabs folic acid 1 mg tablet 1 mg PO DAILY supplement #90 tabs 12/10/23 04/20/24 Rx buspirone 15 mg tablet 15 mg PO TID #270 tabs 12/15/23 04/20/24 Rx escitalopram oxalate 10 mg tablet 10 mg PO DAILY depression #90 tabs 01/26/24 04/20/24 Rx aspirin 81 mg tablet,delayed 81 mg PO DAILY@0800 #90 tabs 02/10/24 04/20/24 Rx release atorvastatin 40 mg tablet 40 mg PO QHS #90 tabs 02/10/24 04/20/24 Rx carvedilol 3.125 mg tablet 3.125 mg PO BID #180 tabs 02/10/24 04/20/24 Rx clopidogrel 75 mg tablet 75 mg PO DAILY #90 tabs 02/10/24 04/20/24 Rx losartan 25 mg tablet See Rx Instructions .Route 03/17/24 04/20/24 Rx .COMPLEX blood pressure #60 tabs cariprazine 3 mg capsule (Vraylar) 3 mg PO DAILY mental health #30 04/05/24 04/20/24 Rx caps Have you fallen in the past year?: No PFSH Medical History Health care maintenance Heart attack UTI (urinary tract infection) Cough Borderline type 2 diabetes mellitus Atherosclerotic heart disease of inupiat coronary artery without angina pectoris URI (upper respiratory infection) Flu vaccine need Dermatitis Bipolar depression Anxiety and depression Bilateral primary osteoarthritis of knee Knee pain, bilateral Abdominal wall abscess Bronchitis Obesity Sinusitis Screening for thyroid disorder COVID-19 Right elbow pain Swelling of thyroid gland Acute maxillary sinusitis, unspecified Enlarged uterus Osteoarthritis of both knees Sebaceous cyst Hypertension GERD (gastroesophageal reflux disease) Depression Anxiety Alcohol abuse Surgical History Stented coronary artery (11/12/23) Spencer teeth removed History of History of tubal ligation Family History Grandmother Cancer Grandfather Dementia Other Depression with anxiety Social History household members: children housing: house number of children: 4 current occupational status: employed current occupation: [employer] history of recent travel: No sexually active: Yes Smoking Status: Former smoker Tobacco: How many years used: 15 how long ago did patient quit smokin11/12/23 alcohol intake: former year quit: 2019 details: 8 months sober substance use type: does not use diet: diabetic and low carbohydrate caffeine: Yes Type: carbonated beverages Number of servings: 1 what type of physical activity do you participate in: walking seatbelt use: always do you feel safe at home: Yes additional social history: single Female Reproductive History Menstrual Ab induced: 1 HPI HPI Chief Complaint: Follow-up chronic conditions Details: MIGUEL MELVIN, is a 48 F who presents to the office today for follow-up of her chronic conditions. No acute concerns at this time. History of hypertension, blood pressure today is at 138/78 however she states that she rushed because she almost missed her appointment. Has not checked her blood pressure at home lately but reports compliance with her medication. No chest pain, palpitation or shortness of breath. History of borderline diabetes, last A1c was at 5.9. S (more content not included)... Normal [facility] CNOVon 04-11-2024 CNOV Office Visit (UCWSTR ) MIGUEL MELVIN ([id number]) 1975 F Date Time Provider Department 04/11/24 10:15 AM SHEYLA ALFONSO RUST During your visit today, we recorded the following information about you: Temperature Pulse Respiration Blood pressure 97.6 degrees 68/minute 16/minute 118/72 Weight 110.8 kg Sheyla Alfonso, RADHA[employer] 04/11/2024 10:36 AM Signed Subjective Eye Problem Pertinent negatives include no chills, congestion, coughing, fever, myalgias or sore throat. Miguel Melvin is a 48 year old female who presents with redness, drainage and itching both eyes. This started this morning. She states both eyes had matting on eyelashes this morning. No known exposure to pinkeye. No recent URI symptoms. She denies eye pain. She has not used any medication for the symptoms today. Review of Systems Constitutional: Negative for chills and fever. HENT: Negative for congestion, ear pain and sore throat. Eyes: Positive for discharge and redness. Negative for blurred vision, double vision, photophobia and pain. Respiratory: Negative for cough. Cardiovascular: Negative. Musculoskeletal: Negative for myalgias. BP 118/72 Pulse 68 Temp 36.4 ?C (97.6 ?F) Resp 16 Wt 110.8 kg (244 lb 4.3 oz) LMP 09/26/2023 (Exact Date) SpO2 96% BMI 38.68 kg/m? PAST MEDICAL HISTORY Diagnosis Date Anxiety and depression Chronic cough GERD (gastroesophageal reflux disease) History of HPV infection History of seizures as a child last age 18 Obesity (BMI 30-39.9) Pulmonary embolism (HCC) 11/2017 Tobacco use PAST SURGICAL HISTORY Procedure Laterality Date ANESTH, SECTION LIG/TRNSXJ FLP TUBE ABDL/VAG APPR UNI/BI PAST SURGICAL HISTORY OF TUBAL LIGATION HX ALLERGIES Cinnamon and Cymbalta [Duloxetine] MEDICATIONS aspirin, enteric coated (ASPIRIN, ENTERIC COATED) 81 mg EC tablet atorvastatin (LIPITOR) 40 mg tablet carvedilol (COREG) 3.125 mg tablet busPIRone (BUSPAR) 15 mg tablet Take 15 mg by mouth three times a day. clopidogrel (PLAVIX) 75 mg tablet folic acid 1 mg tablet Take 1 tablet by mouth every afternoon. pantoprazole DR (PROTONIX) 40 mg tablet albuterol HFA (PROVENTIL HFA, VENTOLIN HFA) 90 mcg/actuation inhaler Inhale 2 Puffs as instructed every 4 hours as needed for wheezing/shortness of breath. VRAYLAR 3 mg capsule Take 1 capsule by mouth every afternoon. losartan (COZAAR) 25 mg tablet Take 1 tablet by mouth every afternoon. escitalopram oxalate (LEXAPRO) 5 mg tablet Take 5 mg by mouth. hydrOXYzine pamoate (VISTARIL) 50 mg capsule Take 1 capsule by mouth three times daily as needed for Anxiety. iron polysaccharide complex (FERREX 150) 150 mg iron capsule Take 1 capsule by mouth twice daily. polymyxin B-trimethoprim (POLYTRIM) 10,000 unit- 1 mg/mL ophthalmic solution Use 1 Drop in both eyes four times daily for 7 days. benzonatate (TESSALON PERLE) 100 mg capsule Take 2 capsules by mouth three times a day as needed. (Patient not taking: Reported on 04/11/2024) Brompheniramine-Pseud oeph-DM (BROMFED DM) 2-30-10 mg/5 mL syrup Take 5 mL by mouth four times daily as needed. (Patient not taking: Reported on 04/14/2018) FLUoxetine HCl (PROZAC) 40 mg capsule Take 1 capsule by mouth once daily. (Patient not taking: Reported on 05/07/2018) ELIQUIS 5 mg tab(s) Take 1 tablet by mouth twice daily. (Patient not taking: Reported on 04/01/2018) nicotine (NICODERM) 21 mg/24 hr Apply 1 Patch as directed every 24 hours. For 6 weeks, then wean down (Patient not taking: Reported on 04/14/2018) nicotine (NICODERM) 14 mg/24 hr Apply 1 Patch as directed every 24 hours. No smoking with patch. Step 2 for 2 weeks, then wean down (Patient not taking: Reported on 04/14/2018) nicotine (NICODERM) 7 mg/24 hr Apply 1 Patch as directed every 24 hours. 2 wks, then stop (Patient not taking: Reported on 04/14/2018) FAMILY HISTORY Problem Relation Age of Onset Psychiatry Mother anxiety/depression Stroke Mother TIAs Seizures Mother Psychiatry Father anxiety/depression Cancer Maternal Grandmother cervical Breast Cancer Maternal Grandmother Cancer Paternal Grandmother bladder, liver, kidney Alzheimer's Disease Paternal Grandfather No Known Problems Sister No Known Problems Brother No Known Problems Brother Social History Tobacco Use Smoking status: Every Day Current packs/day: 0.50 Average packs/day: 0.5 packs/day for 5.5 years (2.8 ttl pk-yrs) Types: Cigarettes Smokeless tobacco: Never Substance Use Topics Alcohol use: Yes Comment: occasionally Drug use: No Objective Physical Exam Vitals and nursing note reviewed. Constitutional: General: She is not in acute distress. Appearance: Normal appearance. She is not ill-appearing. HENT: Right Ear: Tympanic membrane, ear canal and external ear normal. Left Ear: Tympanic mem (more content not included)... Normal [facility] MR/BMS.BPon 04-05-2024 MR/BMS.BP [facility] [address] [place] [address], [address] [place], [place] [id number] OFFICE VISIT Date of Service: 04/05/24 MR#: [id number] Acct: [id number] Name: MIGUEL MELVIN Rep #: [id number] : 1975 Provider: ROSHAN herzog Age/Sex: 48/F Location: [facility] [place]. Status: Signed Intake Vital Signs 01/26/24 15:31 03/17/24 14:48 04/05/24 15:24 Height 5 ft 6 in 5 ft 6 in 5 ft 6 in BP Intake Visit Reasons: 10wfu Allergies cinnamon Allergy (Verified 01/26/24 15:33) Rash PFSH Medical History Heart attack UTI (urinary tract infection) Cough Borderline type 2 diabetes mellitus Atherosclerotic heart disease of inupiat coronary artery without angina pectoris URI (upper respiratory infection) Flu vaccine need Dermatitis Bipolar depression Anxiety and depression Bilateral primary osteoarthritis of knee Knee pain, bilateral Abdominal wall abscess Bronchitis Obesity Sinusitis Screening for thyroid disorder COVID-19 Right elbow pain Swelling of thyroid gland Acute maxillary sinusitis, unspecified Enlarged uterus Osteoarthritis of both knees Sebaceous cyst Hypertension GERD (gastroesophageal reflux disease) Depression Anxiety Alcohol abuse Surgical History Stented coronary artery (11/12/23) Spencer teeth removed History of History of tubal ligation Family History Grandmother Cancer Grandfather Dementia Other Depression with anxiety Social History household members: children housing: house number of children: 4 current occupational status: employed current occupation: [employer] history of recent travel: No sexually active: Yes Smoking Status: Former smoker Tobacco: How many years used: 15 how long ago did patient quit smokin11/12/23 alcohol intake: former year quit: 2019 details: 8 months sober substance use type: does not use diet: diabetic and low carbohydrate caffeine: Yes Type: carbonated beverages Number of servings: 1 what type of physical activity do you participate in: walking seatbelt use: always do you feel safe at home: Yes additional social history: single Female Reproductive History Menstrual Ab induced: 1 HPI History of Present Illness History provided by: patient HPI: Rosa Sandra Melvin is a 48 year old female patient presenting today for a follow up evaluation. Reports she has been doing well. Does feel she has still been tired more often. Has been working on [employer] and this has been exhausting for her. Sleep has been good recently. Does feel she has been sleeping a lot more on her days off. Has not been utilizing sleep aids and has been up 2-3 times for the bathroom but is able to go back to sleep easily. Appetite has been good. Denies any changes in weight. Has been eating lunch and dinner. Denies feelings of depression. Denies SI/HI. States she did need to utilize her PRN anxiety medication 1x since last appointment but it was effective and she has not needed it since. Was doing cardiac rehab but has discontinued this with doing [employer] as she has been getting exercise with this. Previous similar episode: Yes Age of first onset of symptoms: 21-30 years Review of Systems Constitutional Reports: change in weight (recent 15 pound weight loss) and fatigue; Denies: fever(s) or chills Eyes Denies: change in vision or blurry vision Ears, Nose, Mouth, Throat Denies: throat pain or neck pain Cardiovascular Reports: chest pain, palpitations and dyspnea Respiratory Reports: dyspnea and cough; Denies: wheezing Gastrointestinal Denies: abdominal pain, nausea, vomiting, heartburn or diarrhea Genitourinary Denies: dysuria, urinary frequency or urinary urgency Musculoskeletal Denies: back pain or neck pain Integumentary/Breast Denies: rash, pruritus or erythema Neurological Denies: headache(s) Psychiatric Reports: memory loss and difficulty concentrating; Denies: anxiety, change in sleep pattern, loss of interest, irritability, visual hallucinations, auditory hallucinations, suicidal ideation or homicidal ideation Endocrine Reports: fatigue; Denies: polyuria or polydipsia Hematologic/Lymphatic Denies: easy bruising Allergic/Immunologic Denies: wheezing Exam Mental Status Exam - Psych Appearance casually dressed, adequately groomed and no apparent distress Attitude cooperative and calm Activity/Motor Behavior MSE activity/motor behavior finding no adventitious movements and appropriate eye contact Speech regular rate, regular volume and regular prosody Mood euythmic Affect full range Thought Process linear, logical and coherent Thought Content no delusions and no hallucinati (more content not included)... Normal [facility] MR/BMS.BPon 01-26-2024 MR/BMS.BP [facility] [place] [facility], [address] [place] [address] OFFICE VISIT Date of Service: 01/26/24 MR#: [id number] Acct: [id number] Name: MIGUEL MELVIN Rep #: [id number] : 1975 Provider: ROSHAN herzog Age/Sex: 48/F Location: [facility] [place].BP Status: Signed Intake Vital Signs 12/15/23 13:26 01/13/24 15:50 01/26/24 08:26 01/26/24 15:31 Height 5 ft 6 in 5 ft 6 in 5 ft 6 in 5 ft 6 in BP 106/71 Blood Pressure Location Rt brachial Position Sitting Pulse 67 Pulse Source Monitor BP Intake Visit Reasons: 6 wk FU Accompanied by: Self Allergies cinnamon Allergy (Verified 01/26/24 15:33) Rash Medications ???Medication ???Instructions ???Recorded ???Confirmed ???Type albuterol sulfate 90 mcg/actuation 1 - 2 puff inhalation Q6H PRN 03/26/21 01/26/24 Rx aerosol inhaler shortness of breath or wheezing #8.5 grams bupropion HCl 150 mg tablet,12 hr See Rx Instructions .Route 07/10/23 01/26/24 Rx sustained-release .COMPLEX mental health #270 TABLETS losartan 25 mg tablet See Rx Instructions .Route 11/03/23 01/26/24 Rx .COMPLEX blood pressure #90 tabs pantoprazole 40 mg tablet,delayed 40 mg PO DAILY #30 tabs 11/19/23 01/26/24 Rx release aspirin 81 mg tablet,delayed 81 mg PO DAILY@0800 #90 tabs 11/30/23 01/26/24 Rx release atorvastatin 40 mg tablet 40 mg PO QHS #90 tabs 11/30/23 01/26/24 Rx carvedilol 3.125 mg tablet 3.125 mg PO BID #180 tabs 11/30/23 01/26/24 Rx clopidogrel 75 mg tablet 75 mg PO DAILY #90 tabs 11/30/23 01/26/24 Rx hydroxyzine HCl 25 mg tablet 25 mg PO BID PRN anxiety #30 tabs 12/08/23 01/26/24 Rx ferrous sulfate 325 mg (65 mg See Rx Instructions .Route 12/10/23 01/26/24 Rx iron) tablet (FeroSul) .COMPLEX supplement #90 tabs folic acid 1 mg tablet 1 mg PO DAILY supplement #90 tabs 12/10/23 01/26/24 Rx buspirone 15 mg tablet 15 mg PO TID #270 tabs 12/15/23 01/26/24 Rx cariprazine 3 mg capsule (Vraylar) 3 mg PO DAILY mental health #30 11/05/24 11/05/24 Rx caps escitalopram oxalate 10 mg tablet 10 mg PO DAILY depression #90 tabs 01/26/24 01/26/24 Rx PFSH Medical History Heart attack UTI (urinary tract infection) Cough Borderline type 2 diabetes mellitus Atherosclerotic heart disease of inupiat coronary artery without angina pectoris URI (upper respiratory infection) Flu vaccine need Dermatitis Bipolar depression Anxiety and depression Bilateral primary osteoarthritis of knee Knee pain, bilateral Abdominal wall abscess Bronchitis Obesity Sinusitis Screening for thyroid disorder COVID-19 Right elbow pain Swelling of thyroid gland Acute maxillary sinusitis, unspecified Enlarged uterus Osteoarthritis of both knees Sebaceous cyst Hypertension GERD (gastroesophageal reflux disease) Depression Anxiety Alcohol abuse Surgical History Stented coronary artery (11/12/23) Spencer teeth removed History of History of tubal ligation Family History Grandmother Cancer Grandfather Dementia Other Depression with anxiety Social History household members: children housing: house number of children: 4 current occupational status: employed current occupation: [employer] history of recent travel: No sexually active: Yes Smoking Status: Former smoker Tobacco: How many years used: 15 how long ago did patient quit smokin11/12/23 alcohol intake: former year quit: 2019 details: 8 months sober substance use type: does not use diet: diabetic and low carbohydrate caffeine: Yes Type: carbonated beverages Number of servings: 1 what type of physical activity do you participate in: walking seatbelt use: always do you feel safe at home: Yes additional social history: single Female Reproductive History Menstrual Ab induced: 1 HPI History of Present Illness History provided by: patient HPI: Rosa Melvin is a 48 year old female patient presenting today for a follow up evaluation. States that things have been going well for her. Does state that her son got 2 years of probation from his court appearance. Has been trying to completely cut ties with her ex boyfriend. They broke up 6 months ago and he is still in contact with her daily. Feels stress has decreased otherwise. Is currently on a 10 day stretch of working now that she has returned to work after her UT. Did recently have an episode at work where she was clammy, lightheaded, and was feeling overall unwell. Did have physical therapy that day and they monitored her heart during PT and they sent her to the ED and they stated everything normal. Has been doing well on her diet and has only had red meat 2x since her UT. (more content not included)... Normal [facility] 12 Lead EKGon 01-13-2024 12 Lead EKG [facility] [address] [place] [address] 12 Lead EKG 01/13/24 1611 MR#: [id number] Acct: [id number] Name: MIGUEL MELVIN Rep #: [id number] : 1975 48 From: Fracisco Olivera MD Attending Dr: Status: DEP ER Ordering Dr: Christoph Swartz DO Date: 01/13/24 Location: ED Sex: F C Admitted: Test Reason : Blood Pressure : / mmHG Vent. Rate : 064 BPM Atrial Rate : 064 BPM P-R Int : 192 ms QRS Dur : 124 ms QT Int : 470 ms P-R-T Axes : 075 074 040 degrees QTc Int : 484 ms Normal sinus rhythm Right bundle branch block Abnormal ECG Confirmed by FRACISCO OLIVERA MD ([id number]), content editor MIKA ULLOA ([id number]) on 01/14/2024 9:25:00 AM Referred By: Confirmed By:FRACISCO OLIVERA MD 01/14/24 0925 Date Fracisco Olivera MD CC: Dr. Princess Baca MD; Dr. Christoph Swartz DO Signed Normal [facility] Basic Metabolic Profile (BMP )on 01-13-2024 BUN/CRE 11.2 RATIO Normal 01-09 [facility] Comment on above: Order Comment: 1Y Performed By: #### L 501.4465, L100.0100, L300.8000, L500.2500 ####[facility] [address] [place], [address] CA,Total 8.9 mg/dL Normal 8.5-10.1 [facility] Comment on above: Order Comment: 1Y Performed By: #### L 501.5425, L100.0100, L300.8000, L500.2500 ####[facility] [address] [place], [address] Chloride [Moles/Vol] 110 mmol/L High 98-107 [facility] Comment on above: Order Comment: 1Y Performed By: #### L 501.5425, L100.0100, L300.8000, L500.2500 ####[facility] [address] [place], [address] CO2 [Moles/Vol] 23.0 mmol/L Normal 21.0-32.0 [facility] Comment on above: Order Comment: 1Y Performed By: #### L 501.5425, L100.0100, L300.8000, L500.2500 ####[facility] [address] [place], [address] Creatinine [Mass/Vol] 0.98 mg/dL Normal 0.55-1.02 [facility] Comment on above: Order Comment: 1Y Result Comment: The validity of the calculated GFR GFRAA in patients over 70 years has not been determined. Clinical correlation is essential. Performed By: #### L 501.5425, L100.0100, L300.8000, L500.2500 ####[facility] [address] [place], [address] ECRCL 92.06 ml/min Normal [facility] Comment on above: Order Comment: 1Y Performed By: #### L 501.5425, L100.0100, L300.8000, L500.2500 ####[facility] [address] [place], [address] EST GFR - AA 78 mL/min Normal >60 [facility] Comment on above: Order Comment: 1Y Result Comment: Afri can [place] GFR Calc Performed By: #### L 501.5425, L100.0100, L300.8000, L500.2500 ####[facility] [address] [place], [address] GAP 6 Normal 5-15 [facility] Comment on above: Order Comment: 1Y Performed By: #### L 501.5425, L100.0100, L300.8000, L500.2500 ####[facility] [address] [place], [address] GFR/1.73 sq M.predicted among non-blacks MDRD (S/P/Bld) [Vol rate/Area] 65 mL/min/{1.73_m2} Normal >60 [facility] Comment on above: Order Comment: 1Y Result Comment: Non- GFR Calc Performed By: #### L 501.5425, L100.0100, L300.8000, L500.2500 ####[facility] [address] [place], [address] Glucose [Mass/Vol] 107 mg/dL High 74-106 [facility] Comment on above: Order Comment: 1Y Result Comment: Fast ing Glucose result from 100 to 125 mg/dL suggests IMPAIRED HOMEOSTASIS per A.D.A. criteria. Performed By: #### L 501.5425, L100.0100, L300.8000, L500.2500 ####[facility] [address] [place], [address] Potassium [Moles/Vol] 3.9 mmol/L Normal 3.5-5.1 [facility] Comment on above: Order Comment: 1Y Performed By: #### L 501.5425, L100.0100, L300.8000, L500.2500 ####[facility] [address] [place], [address] Sodium [Moles/Vol] 138 mmol/L Normal 136-145 [facility] Comment on above: Order Comment: 1Y Performed By: #### L 501.5425, L100.0100, L300.8000, L500.2500 ####[facility] [address] [place], [address] Urea nitrogen [Mass/Vol] 11 mg/dL Normal 7-18 [facility] Comment on above: Order Comment: 1Y Performed By: #### L 501.5425, L100.0100, L300.8000, L500.2500 ####[facility] [address] [place], [address] CBC W/Diff, Automatedon 10-2 -2023 Absolute Lymph 1.98 X10 3/uL Normal 0.83-4.51 [facility] Comment on above: Performed By: #### L 501.5425, L100.0100, L300.8000, L500.2500 ####[facility] [address] [place], [address] Absolute Neut 4.0 X10 3/uL Normal 2.0-7.7 [facility] Comment on above: Performed By: #### L 501.5425, L100.0100, L300.8000, L500.2500 ####[facility] [address] [place], [address] Basophils/100 WBC (Bld) 0.6 % Normal 0-1 [facility] Comment on above: Performed By: #### L 501.5425, L100.0100, L300.8000, L500.2500 ####[facility] [address] [place], [address] Eosinophils/100 WBC (Bld) 1.9 % Normal 0-5 [facility] Comment on above: Performed By: #### L 501.5425, L100.0100, L300.8000, L500.2500 ####[facility] [address] [place], [address] Erythrocyte distribution width (RBC) [Ratio] 17.8 % High 11.6-14.6 [facility] Comment on above: Performed By: #### L 501.5425, L100.0100, L300.8000, L500.2500 ####[facility] [address] [place], [address] Hematocrit (Bld) [Volume fraction] 36.5 % Low 37-47 [facility] Comment on above: Performed By: #### L 501.5425, L100.0100, L300.8000, L500.2500 ####[facility] [address] [place], [address] Hemoglobin (Bld) [Mass/Vol] 11.0 g/dL Low 12.0-15.0 [facility] Comment on above: Performed By: #### L 501.5425, L100.0100, L300.8000, L500.2500 ####[facility] [address] [place], [address] IG% 0.100 Normal 0.0-0.9 [facility] Comment on above: Result Comment: IG% - Immature Granulocytes (promyelocytes, myelocytes and metamyelocytes) > 1% indicates that a LEFT SHIFT is Present. Performed By: #### L 501.5425, L100.0100, L300.8000, L500.2500 ####[facility] [address] [place], [address] Lymphocytes/100 WBC (Bld) 29.4 % Normal 19-41 [facility] Comment on above: Performed By: #### L 501.5425, L100.0100, L300.8000, L500.2500 ####[facility] [address] [place], [address] MCH (RBC) [Entitic mass] 23.5 pg Low 27.0-32.0 [facility] Comment on above: Performed By: #### L 501.5425, L100.0100, L300.8000, L500.2500 ####[facility] [address] [place], [address] MCHC (RBC) [Mass/Vol] 30.1 g/dL Low 32-36 [facility] Comment on above: Performed By: #### L 501.5425, L100.0100, L300.8000, L500.2500 ####[facility] [address] [place], [address] MCV (RBC) [Entitic vol] 77.8 fL Low 81-99 [facility] Comment on above: Performed By: #### L 501.5425, L100.0100, L300.8000, L500.2500 ####[facility] [address] [place], [address] Monocytes/100 WBC (Bld) 8.3 % Normal 0-10 [facility] Comment on above: Performed By: #### L 501.5425, L100.0100, L300.8000, L500.2500 ####[facility] [address] [place], [address] Neutrophils/100 WBC (Bld) 59.7 % Normal 47-70 [facility] Comment on above: Performed By: #### L 501.5425, L100.0100, L300.8000, L500.2500 ####[facility] [address] [place], [address] Nucleated RBC (Bld) [#/Vol] 0 10*3/uL Normal 0-5 [facility] Comment on above: Performed By: #### L 501.5425, L100.0100, L300.8000, L500.2500 ####[facility] [address] [place], [address] Platelet mean volume (Bld) [Entitic vol] 11.1 fL Normal 6.2-12.0 [facility] Comment on above: Performed By: #### L 501.5425, L100.0100, L300.8000, L500.2500 ####[facility] [address] [place], [address] Platelets (Bld) [#/Vol] 358 10*3/uL Normal 150-450 [facility] Comment on above: Performed By: #### L 501.5425, L100.0100, L300.8000, L500.2500 ####[facility] [address] [place], [address] RBC (Bld) [#/Vol] 4.69 10*6/uL Normal 4.2-5.4 [facility] Comment on above: Performed By: #### L 501.5425, L100.0100, L300.8000, L500.2500 ####[facility] [address] [place], [address] RDW SD 49.8 fl High 35.1-43.9 [facility] Comment on above: Performed By: #### L 501.5425, L100.0100, L300.8000, L500.2500 ####[facility] [address] [place], [address] WBC (Bld) [#/Vol] 6.7 10*3/uL Normal 4.4-11.0 [facility] Comment on above: Performed By: #### L 501.5425, L100.0100, L300.8000, L500.2500 ####[facility] [address] [place], [address] CTA Chest W/WO Contraston CTA Chest W/WO Contrast [facility] Imaging Services [address] [place] [address] CTA Chest W/WO Contrast MR#: [id number] Acct: [id number] Name: MELVINMIGUELLYNNETTE LEACH Rep #: [id number] : 1975 F 48 From: Gil Hernández DO PCP: Dr. Princess Baca MD Status: REG ER Study: CTA Chest W/WO Contrast Date of Exam: 01/13/24 Exam# [id number] Ordering Dr: Christoph Swartz DO [id number] STUDY: CTA CHEST REASON FOR EXAM: Female, 48 years old. Elevated D-dimer RADIATION DOSAGE (If Supplied By Facility): CTDIvol = ( 15.04 ) mGy, DLP = ( 579.43 ) mGycm TECHNIQUE: The examination was performed with the intravenous administration of IV 100mL [id number]. Post-processing of the angiographic images was performed, with multiplanar reformation and 3D reconstruction. The protocol utilizes one or more of the following dose reduction techniques: automated exposure control, adjustment of mA and/or kV according to patient size,and/or use of iterative reconstruction technique. COMPARISON: FINDINGS: Normal enhancement of the main pulmonary artery and right and left pulmonary arteries. Normal enhancement of the bilateral peripheral pulmonary arteries. There is no demonstrated pulmonary embolism. Normal thoracic aorta and visualized great vessels. There is no demonstrated aortic dissection. Normal heart and pericardium. Normal mediastinum. Normal hilar regions. Normal visualized trachea and bronchi. The lungs are well expanded. Normal pulmonary parenchyma. Normal pleura. Normal chest wall structures. Normal osseous structures. Possible cholelithiasis. CT/CTA Chest W/WO Contrast IMPRESSION: No demonstrated pulmonary embolism or arterial dissection. Possible cholelithiasis. Electronically Signed: Gil Hernández DO at 18:01 EDT , CC: Dr. Princess Baca MD; Dr. Christoph Swartz DO Stripper Shovel Operator: Signed Normal [facility] Chest PA and Lateralon 01-12 Chest PA and Lateral [facility] [address] [place], [place] [address] Chest PA and Lateral MR#: [id number] Acct: [id number] Name: MIGUEL MELVIN Rep #: [id number] : 1975 F 48 From: Gil Hernández DO PCP: Dr. Princess Baca MD Status: [facility] ER Study: Chest PA and Lateral Date of Exam: 01/13/24 Exam# [id number] Ordering Dr: Christoph Swartz DO [id number] INDICATION: chest pain EXAMINATION/TECHNIQUE : X-RAY - XR Chest 2 Views COMPARISON: April 04, 2021 __ FINDINGS: LINES/DEVICES: None. LUNGS: No consolidation, edema or effusion. No pneumothorax. MEDIASTINUM AND CARDIOVASCULAR STRUCTURES: Cardiac silhouette not enlarged. Central airways and mediastinal contour are unremarkable. BONES AND SOFT TISSUES: Unremarkable. RAD/Chest PA and Lateral IMPRESSION: No radiographic evidence of acute cardiopulmonary disease. Electronically Signed: Gil Hernández DO at 16:54 EDT Reading Location ID and State: [facility] / [place] Tel [phone], Service support , CC: Dr. Princess Baca MD; Dr. Christoph Swartz DO Stripper Shovel Operator: Signed Normal [facility] D-Dimer Quantitative (DVT/PE )on 01-13-2024 D-DIMER QUANT 3.21 FEU/ug/m Invalid Interpretation Code 0.27-0.49 [facility] Comment on above: Order Comment: CRITI NEETU VALUE CALLED TO SONAL CAMPO01/13/24 1711 Josie Hummel.RESULTS READ BACK BY SAME. Result Comment: D-Di bailey ELEVATED (>0.49): Additional studies and clinical assessments are indicated to conclude diagnosis of: Deep Vein Thrombosis (DVT) or Pulmonary Embolism (PE) Performed By: #### L 501.5487, L100.0100, L300.8000, L500.2500 ####[facility] [address] [place], [address] Emergency Department Summary on 01-13-2024 Emergency Department Summary [facility] Medical Records Department [address] [place] [address] Emergency Department Summary 01/13/24 MR#: [id number] Acct: [id number] Name: MIGUEL MELVIN Rep #: [id number] : 1975 48 From: Christoph Swartz DO PCP: Dr. Princess Baca MD Status:DEP ER Location: ED HPI History of Present Illness Chief Complaint: Chest Pain Informant: patient Onset/Context/Timing Onset: Today Activity at onset: sudden Timing: Intermittent Quality: Positive for Sharp Location: Substernal Worsened By: Nothing Relieved By: - (Eating and drinking) Associated Symptoms: Positive for Lightheadedness; Negative for Nausea, Vomiting, Diaphoresis, Dyspnea, Cough, Fever, Acid Reflux or Palpitations Narrative Narrative: Patient presents with chest pain and lightheadedness that began today. Patient states she was at work when this began. Patient states that she felt clammy and lightheaded. Patient states she had a episode of pain in her chest. Patient had a recent UT and had recent stent placement 2 months ago. Patient denies any shortness of breath. Patient denies any nausea or vomiting. Patient denies any diaphoresis. Patient states her symptoms did get better with eating and drinking. CVD Risk Factors: Positive for Hypertension, Diabetes and Hypercholesterolemia; Negative for Family History 1' PE Risk Factors: Positive for Recent Travel/Surgery and Prior DVT or PE; Negative for Recent Immobilization, Cancer or OCP + Smoking + >/=35 PFSH PFSH Medical History Heart attack UTI (urinary tract infection) Cough Borderline type 2 diabetes mellitus Atherosclerotic heart disease of inupiat coronary artery without angina pectoris URI (upper respiratory infection) Flu vaccine need Dermatitis Bipolar depression Anxiety and depression Bilateral primary osteoarthritis of knee Knee pain, bilateral Abdominal wall abscess Bronchitis Obesity Sinusitis Screening for thyroid disorder COVID-19 Right elbow pain Swelling of thyroid gland Acute maxillary sinusitis, unspecified Enlarged uterus Osteoarthritis of both knees Sebaceous cyst Hypertension GERD (gastroesophageal reflux disease) Depression Anxiety Alcohol abuse Home Medications ???Medication ???Instructions ???Recorded ???Last Taken ???Type albuterol sulfate 90 mcg/actuation 1 - 2 puff inhalation Q6H PRN 03/26/21 Unknown Rx aerosol inhaler shortness of breath or wheezing #8.5 grams bupropion HCl 150 mg tablet,12 hr See Rx Instructions .Route 07/10/23 Unknown Rx sustained-release .COMPLEX mental health #270 TABLETS losartan 25 mg tablet See Rx Instructions .Route 11/03/23 Unknown Rx .COMPLEX blood pressure #90 tabs escitalopram oxalate 10 mg tablet 10 mg PO DAILY depression #30 tabs 11/11/23 Unknown Rx pantoprazole 40 mg tablet,delayed 40 mg PO DAILY #30 tabs 11/19/23 Unknown Rx release aspirin 81 mg tablet,delayed 81 mg PO DAILY@0800 #90 tabs 11/30/23 Unknown Rx release atorvastatin 40 mg tablet 40 mg PO QHS #90 tabs 11/30/23 Unknown Rx carvedilol 3.125 mg tablet 3.125 mg PO BID #180 tabs 11/30/23 Unknown Rx clopidogrel 75 mg tablet 75 mg PO DAILY #90 tabs 11/30/23 Unknown Rx cariprazine 3 mg capsule (Vraylar) 3 mg PO DAILY mental health #30 12/08/23 Unknown Rx caps hydroxyzine HCl 25 mg tablet 25 mg PO BID PRN anxiety #30 tabs 12/08/23 Unknown Rx ferrous sulfate 325 mg (65 mg See Rx Instructions .Route 12/10/23 Unknown Rx iron) tablet (FeroSul) .COMPLEX supplement #90 tabs folic acid 1 mg tablet 1 mg PO DAILY supplement #90 tabs 12/10/23 Unknown Rx buspirone 15 mg tablet 15 mg PO TID #270 tabs 12/15/23 Unknown Rx Allergy/AdvReac Type Severity Reaction Status Date / Time cinnamon Allergy Rash Verified 01/13/24 15:49 Family History Grandmother Cancer Grandfather Dementia Other Depression with anxiety Surgical History Stented coronary artery (11/12/23) Spencer teeth removed History of History of tubal ligation Social History household members: children housing: house number of children: 4 current occupational status: employed current occupation: [employer] history of recent travel: No sexually active: Yes Smoking Status: Former smoker Tobacco: How many years used: 15 how long ago did patient quit smokin11/12/23 alcohol intake: former year quit: 2019 details: 8 months sober substance use type: does not use diet: diabetic and low carbohydrate caffeine: Yes Type: carbonated beverages Number of servings: 1 what type of physical activity do you participate in: walking seatbelt use: always do you feel safe at home: Yes additional social history: single (more content not included)... Normal [facility] L501.4020on 01-13-2024 TROPONIN-I HS 4 pg/mL Normal 3.0-54.0 [facility] Comment on above: Result Comment: Sonya martin Note: New Test Units and Gender Specific Reference Ranges. For more information see Policy Stat Procedure [place] High Sensitivity Troponin (TNIH) and attachments. Performed By: #### L 501.4020 #### [facility] [address] [place], [place], [address] L501.5425on 01-13-2024 TROPONIN-I HS 4 pg/mL Normal 3.0-54.0 [facility] Comment on above: Order Comment: 1Y Result Comment: Sonya martin Note: New Test Units and Gender Specific Reference Ranges. For more information see Policy Stat Procedure [place] High Sensitivity Troponin (TNIH) and attachments. Performed By: #### L 501.5425, L100.0100, L300.8000, L500.2500 ####[facility] [address] [place], [address] /BRITTNY.BPon 12-15-2023 /BRITTNY. [address], [address] [place], [place] [address] OFFICE VISIT Date of Service: 12/15/23 MR#: [id number] Acct: [id number] Name: MIGUEL MELVIN Rep #: [id number] : 1975 Provider: ROSHAN herzog Age/Sex: 48/F Location: [facility] [place].BP Status: Signed Intake Vital Signs 09/02/23 13:18 11/30/23 10:05 12/15/23 13:26 Height 5 ft 6 in 5 ft 6 in 5 ft 6 in BP Intake Visit Reasons: follow up Accompanied by: Self Allergies cinnamon Allergy (Verified 12/15/23 13:34) Rash Medications ???Medication ???Instructions ???Recorded ???Confirmed ???Type albuterol sulfate 90 mcg/actuation 1 - 2 puff inhalation Q6H PRN 03/26/21 12/15/23 Rx aerosol inhaler shortness of breath or wheezing #8.5 grams bupropion HCl 150 mg tablet,12 hr See Rx Instructions .Route 07/10/23 12/15/23 Rx sustained-release .COMPLEX mental health #270 TABLETS losartan 25 mg tablet See Rx Instructions .Route 11/03/23 12/15/23 Rx .COMPLEX blood pressure #90 tabs escitalopram oxalate 10 mg tablet 10 mg PO DAILY depression #30 tabs 11/11/23 12/15/23 Rx pantoprazole 40 mg tablet,delayed 40 mg PO DAILY #30 tabs 11/19/23 12/15/23 Rx release aspirin 81 mg tablet,delayed 81 mg PO DAILY@0800 #90 tabs 11/30/23 12/15/23 Rx release atorvastatin 40 mg tablet 40 mg PO QHS #90 tabs 11/30/23 12/15/23 Rx carvedilol 3.125 mg tablet 3.125 mg PO BID #180 tabs 11/30/23 12/15/23 Rx clopidogrel 75 mg tablet 75 mg PO DAILY #90 tabs 11/30/23 12/15/23 Rx cariprazine 3 mg capsule (Vraylar) 3 mg PO DAILY mental health #30 12/08/23 12/15/23 Rx caps hydroxyzine HCl 25 mg tablet 25 mg PO BID PRN anxiety #30 tabs 12/08/23 12/15/23 Rx ferrous sulfate 325 mg (65 mg See Rx Instructions .Route 12/10/23 12/15/23 Rx iron) tablet (FeroSul) .COMPLEX supplement #90 tabs folic acid 1 mg tablet 1 mg PO DAILY supplement #90 tabs 12/10/23 12/15/23 Rx buspirone 15 mg tablet 15 mg PO TID #270 tabs 12/15/23 12/15/23 Rx PFSH Medical History Heart attack UTI (urinary tract infection) Cough Borderline type 2 diabetes mellitus Atherosclerotic heart disease of inupiat coronary artery without angina pectoris URI (upper respiratory infection) Flu vaccine need Dermatitis Bipolar depression Anxiety and depression Bilateral primary osteoarthritis of knee Knee pain, bilateral Abdominal wall abscess Bronchitis Obesity Sinusitis Screening for thyroid disorder COVID-19 Right elbow pain Swelling of thyroid gland Acute maxillary sinusitis, unspecified Enlarged uterus Osteoarthritis of both knees Sebaceous cyst Hypertension GERD (gastroesophageal reflux disease) Depression Anxiety Alcohol abuse Surgical History Stented coronary artery (11/12/23) Spencer teeth removed History of History of tubal ligation Family History Grandmother Cancer Grandfather Dementia Other Depression with anxiety Social History household members: children housing: house number of children: 4 current occupational status: employed current occupation: [employer] history of recent travel: No sexually active: Yes Smoking Status: Former smoker Tobacco: How many years used: 15 how long ago did patient quit smokin11/12/23 alcohol intake: former year quit: 2019 substance use type: does not use diet: diabetic and low carbohydrate caffeine: Yes Type: carbonated beverages Number of servings: 1 what type of physical activity do you participate in: walking seatbelt use: always do you feel safe at home: Yes additional social history: single Female Reproductive History Menstrual Ab induced: 1 HPI History of Present Illness History provided by: patient Chief complaint: Depression/Anxiety HPI: Rosa Melvin is a 48 year old female patient presenting today for a follow up evaluation. Patient has had a large amount of health concerns lately. Did have bronchitis, pneumonia, and an UT. Has changes her diet to work on lowering carbs, sodium, and lower cholesterol. Has stopped smoking on 11/11 when she had her UT. Does feel she is sleeping too much and is sleeping as often as she can. When she is around others she is feeling perky and happy but when she is alone she is thinking a lot about finances and her health. Has not been feeling an increase in depression. Prior to her health concerns she had been feeling like her medications were effective due to the increase of escitalopram at her last appointment. Has not been able to cope with and comprehend her health concerns. Denies SI/HI. Patient also discusses concern for her son having to go to court next week as he may spend time in snf. Previous similar episode: (more content not included)... Normal [facility] Cardiology Visit Reporton Cardiology Visit Report [facility] [address] [place] [address] OFFICE VISIT Date of Service: 11/30/23 MR#: [id number] Acct: [id number] Name: MIGUEL MELVIN Rep #: [id number] : 1975 Provider: ROSHAN houser Age/Sex: 48/F Location: [facility] Status: Signed [facility] History of Present Illness Details: This is a 48-year-old female who presents to the office today for a posthospital follow-up. She was initially seen in consultation for ST elevated myocardial infarction in October 2023. She presented to the Emergency Department on 11/12/2023 for midsternal chest pain. Heart catheterization showed a left main with mild luminal irregularities, proximal LAD with 90% stenosis, circumflex with mild luminal irregularities, and RCA with mild luminal irregularities. She proceeded with drug-eluting stent to proximal LAD. She had an echocardiogram that showed an ejection fraction of 65% and no regional wall motion abnormalities. She also has a past medical history of borderline type 2 diabetes, hypertension, previous tobacco abuse, hyperlipidemia, and obesity. She denies chest, arm, jaw, or neck discomfort. She continues with infrequent palpitations. She denies bilateral lower extremity edema. She denies claudication. She denies shortness of breath with activity, shortness of breath at rest, orthopnea, or PND. She denies chronic cough. She denies significant, sudden weight gain. She denies lightheadedness, dizziness, near-syncope, or syncope. She denies blood in urine, blood in stool, or epistaxis. He denies fever with chills. She denies myalgia. She states fatigue. Her exercise level has remained stable. Intake Vital Signs 11/13/23 09:28 11/26/23 10:44 11/30/23 10:05 Height 5 ft 6 in 5 ft 6 in 5 ft 6 in Weight: 247 lb BMI 39.9 BP 96/65 Blood Pressure Location Lt brachial Position Sitting Respiration 18 Pulse 66 Pulse Source NIBP Intake Visit Reasons: Acute STEMI 11/11 [facility] Formula Weigher Required: No Is patient in pain?: No Allergies cinnamon Allergy (Verified 11/30/23 10:09) Rash Medications ???Medication ???Instructions ???Recorded ???Confirmed ???Type albuterol sulfate 90 mcg/actuation 1 - 2 puff inhalation Q6H PRN 03/26/21 11/30/23 Rx aerosol inhaler shortness of breath or wheezing #8.5 grams folic acid 1 mg tablet 1 mg PO DAILY supplement #90 tabs 10/08/21 11/30/23 Rx ferrous sulfate 325 mg (65 mg See Rx Instructions .Route 09/05/22 11/30/23 Rx iron) tablet (FeroSul) .COMPLEX supplement #90 tabs buspirone 15 mg tablet See Rx Instructions .Route 04/08/23 11/30/23 Rx .COMPLEX mental health #90 tabs bupropion HCl 150 mg tablet,12 hr See Rx Instructions .Route 07/10/23 11/30/23 Rx sustained-release .COMPLEX mental health #270 TABLETS hydroxyzine HCl 25 mg tablet 25 mg PO BID PRN anxiety #30 tabs 07/21/23 11/30/23 Rx cariprazine 3 mg capsule (Vraylar) 3 mg PO DAILY mental health #30 11/03/23 11/30/23 Rx caps losartan 25 mg tablet See Rx Instructions .Route 11/03/23 11/30/23 Rx .COMPLEX blood pressure #90 tabs escitalopram oxalate 10 mg tablet 10 mg PO DAILY depression #30 tabs 11/11/23 11/30/23 Rx nicotine 21 mg/24 hr daily 21 mg transdermal DAILY #30 ea 11/14/23 11/30/23 Rx transdermal patch pantoprazole 40 mg tablet,delayed 40 mg PO DAILY #30 tabs 11/19/23 11/30/23 Rx release aspirin 81 mg tablet,delayed 81 mg PO DAILY@0800 #90 tabs 11/30/23 11/30/23 Rx release atorvastatin 40 mg tablet 40 mg PO QHS #90 tabs 11/30/23 11/30/23 Rx carvedilol 3.125 mg tablet 3.125 mg PO BID #180 tabs 11/30/23 11/30/23 Rx clopidogrel 75 mg tablet 75 mg PO DAILY #90 tabs 11/30/23 11/30/23 Rx Ejection fraction %: 65 Have you fallen in the past year?: No PFSH Medical History UTI (urinary tract infection) Cough Borderline type 2 diabetes mellitus Atherosclerotic heart disease of inupiat coronary artery without angina pectoris URI (upper respiratory infection) Flu vaccine need Dermatitis Bipolar depression Anxiety and depression Bilateral primary osteoarthritis of knee Knee pain, bilateral Abdominal wall abscess Bronchitis Obesity Sinusitis Screening for thyroid disorder COVID-19 Right elbow pain Swelling of thyroid gland Acute maxillary sinusitis, unspecified Enlarged uterus Osteoarthritis of both knees Sebaceous cyst Hypertension GERD (gastroesophageal reflux disease) Depression Anxiety Alcohol abuse Surgical History Stented coronary artery (11/12/23) Spencer teeth removed History of History of tubal ligation Family History Grandmother Cancer Grandfather Dementia Other Depression with anxiety Social History (Reviewed 11/29 (more content not included)... Normal [facility] Internal Medicine Office Vis britni 11-18-2023 Internal Medicine Office Visit [facility] [place] [address] [place] [address] OFFICE VISIT Date of Service: 11/18/23 MR#: [id number] Acct: [id number] Name: MIGUEL MELVIN Rep #: [id number] : 1975 Provider: Dr. Princess jesus MD Age/Sex: 48/F Location: [facility] Status: Signed Intake Vital Signs 11/13/23 09:28 11/18/23 10:59 Height 5 ft 6 in 5 ft 6 in Weight: 247 lb BMI 39.9 BP 112/68 Blood Pressure Location Lt brachial Position Sitting Respiration 14 Pulse 74 Pulse Source Monitor Temp 97.1 F L Temp Source Temporal Pulse Oximetry (%) 98 Oxygen Delivery Method room air Intake Visit Reasons: [facility] FU FOR HEART ATTACK Chief Complaint: Follow-up hospital admission Formula Weigher Required: No Is patient in pain?: No Allergies cinnamon Allergy (Verified 11/18/23 10:53) Rash Medications ???Medication ???Instructions ???Recorded ???Confirmed ???Type albuterol sulfate 90 mcg/actuation 1 - 2 puff inhalation Q6H PRN 03/26/21 11/18/23 Rx aerosol inhaler shortness of breath or wheezing #8.5 grams folic acid 1 mg tablet 1 mg PO DAILY supplement #90 tabs 10/08/21 11/18/23 Rx ferrous sulfate 325 mg (65 mg See Rx Instructions .Route 09/05/22 11/18/23 Rx iron) tablet (FeroSul) .COMPLEX supplement #90 tabs buspirone 15 mg tablet See Rx Instructions .Route 04/08/23 11/18/23 Rx .COMPLEX mental health #90 tabs bupropion HCl 150 mg tablet,12 hr See Rx Instructions .Route 07/10/23 11/18/23 Rx sustained-release .COMPLEX mental health #270 TABLETS hydroxyzine HCl 25 mg tablet 25 mg PO BID PRN anxiety #30 tabs 07/21/23 11/18/23 Rx cariprazine 3 mg capsule (Vraylar) 3 mg PO DAILY mental health #30 11/03/23 11/18/23 Rx caps losartan 25 mg tablet See Rx Instructions .Route 11/03/23 11/18/23 Rx .COMPLEX blood pressure #90 tabs escitalopram oxalate 10 mg tablet 10 mg PO DAILY depression #30 tabs 11/11/23 11/18/23 Rx aspirin 81 mg tablet,delayed 81 mg PO DAILY@0800 #90 tabs 11/14/23 11/18/23 Rx release atorvastatin 40 mg tablet 40 mg PO QHS #90 tabs 11/14/23 11/18/23 Rx carvedilol 3.125 mg tablet 3.125 mg PO BID #180 tabs 11/14/23 11/18/23 Rx clopidogrel 75 mg tablet 75 mg PO DAILY #90 tabs 11/14/23 11/18/23 Rx nicotine 21 mg/24 hr daily 21 mg transdermal DAILY #30 ea 11/14/23 11/18/23 Rx transdermal patch famotidine 40 mg tablet 40 mg PO .COMPLEX #90 tabs 11/16/23 11/18/23 Rx PFSH Medical History Cough Borderline type 2 diabetes mellitus Atherosclerotic heart disease of inupiat coronary artery without angina pectoris URI (upper respiratory infection) Flu vaccine need Dermatitis Bipolar depression Anxiety and depression Bilateral primary osteoarthritis of knee Knee pain, bilateral Abdominal wall abscess Bronchitis Obesity Sinusitis Screening for thyroid disorder COVID-19 Right elbow pain Swelling of thyroid gland Acute maxillary sinusitis, unspecified Enlarged uterus Osteoarthritis of both knees Sebaceous cyst Hypertension GERD (gastroesophageal reflux disease) Depression Anxiety Alcohol abuse Surgical History Stented coronary artery (11/12/23) Spencer teeth removed History of History of tubal ligation Family History Grandmother Cancer Grandfather Dementia Other Depression with anxiety Social History household members: children housing: house number of children: 4 current occupational status: employed current occupation: [employer] history of recent travel: No sexually active: Yes Smoking Status: Current every day smoker tobacco type: cigarettes Tobacco: How many years used: 15 alcohol intake: former year quit: 2019 details: 8 months sober substance use type: does not use diet: diabetic and low carbohydrate what type of physical activity do you participate in: walking seatbelt use: always do you feel safe at home: Yes additional social history: single Female Reproductive History Menstrual Ab induced: 1 HPI HPI Chief Complaint: Follow-up hospital admission Details: MIGUEL MELVIN, is a 48 F who presents to the office today for follow-up hospital admission. Presented to the hospital due to chest pain and diagnosed with an acute UT. Proximal LAD. No known family history of early CAD. Prior history of tobacco use however she states that she quit last week. Also history of borderline diabetes, last A1c was at 5.6. She states that since her hospital stay, she has made significant dietary changes and plans to continue to make lifestyle changes. No further significant chest pain. Scheduled to start rehab shortly. She repor (more content not included)... Normal [facility] CNOVon 11-07-2023 CNOV Office Visit ([facility] ) MIGUEL MELVIN ([id number]) 1975 F Date Time Provider Department 11/07/23 12:45 PM JAYDA PEÑALOZA RUST During your visit today, we recorded the following information about you: Temperature Pulse Respiration Blood pressure 97.8 degrees 69/minute 18/minute 132/61 Weight 115.2 kg Jayda Peñaloza APRN.[employer] 11/07/2023 1:09 PM Signed CC: Patient presents with: Throat Problem: Laryngitis Was recently on doxycycline. Patient says she is not feeling much better. HPI: Miguel Melvin is a 48 year old female who presents to the office with complaint of chest congestion, head congestion, and cough, nonproductive for a week. Symptoms are staying the same. Associated symptoms includes hoarse voice. Denies fever, ear pain, nausea, vomiting , and diarrhea. Treatments tried include nothing so far. with no relief of symptoms. Sick contacts: unknown. History of asthma, frequent episodes of bronchitis, chronic bronchitis, bronchiectasis or COPD: No Smoker: No Seasonal/environmenta l allergies: No The ROS is otherwise negative. The patient's pmh, medications, allergies, and past visits are reviewed. PHYSICAL EXAM: BP 132/61 Pulse 69 Temp 36.6 ?C (97.8 ?F) Resp 18 Wt 115.2 kg (253 lb 15.5 oz) LMP 09/26/2023 (Exact Date) SpO2 98% BMI 40.22 kg/m? General appearance: alert, cooperative, pleasant, in no acute distress Head: Normocephalic Eyes: EOM's intact, conjunctiva pink and moist, no icterus, sclera white, non-injected Ears: Right ear: External ear/canal- Normal, TM - clear with good landmarks. Left ear: External ear/canal- Normal, TM - clear with good landmarks Oropharynx:moist without lesions, No erythema, exudates or tonsillar hypertrophy. Heart: Negative. RRR without obvious murmur, gallop, or rubs. No ectopy. Lungs: clear to auscultation, without rales or wheeze, good air exchange PAST MEDICAL HISTORY No date: Anxiety and depression No date: Chronic cough No date: GERD (gastroesophageal reflux disease) No date: History of HPV infection No date: History of seizures as a child Comment: last age 18 No date: Obesity (BMI 30-39.9) 11/2017: Pulmonary embolism (HCC) No date: Tobacco use PAST SURGICAL HISTORY No date: ANESTH, SECTION No date: LIG/TRNSXJ FLP TUBE ABDL/VAG APPR UNI/BI No date: PAST SURGICAL HISTORY OF Comment: No date: TUBAL LIGATION HX ALLERGIES Cinnamon and Cymbalta [Duloxetine] MEDICATIONS amoxicillin-clavulana te potassium (AUGMENTIN) 875-125 mg per tablet Take 1 tablet by mouth two times a day for 7 days. predniSONE (DELTASONE) 10 mg tablet Take 4 tabs daily for 3 days, then 2 tabs daily for 3 days, then 1 tab daily for 3 days with food. albuterol HFA (PROVENTIL HFA, VENTOLIN HFA) 90 mcg/actuation inhaler Inhale 2 Puffs as instructed every 4 hours as needed for wheezing/shortness of breath. VRAYLAR 3 mg capsule Take 1 capsule by mouth every afternoon. hydrOXYzine HCl (ATARAX) 25 mg tablet take 1 tablet by mouth twice a day for anxiety losartan (COZAAR) 25 mg tablet Take 1 tablet by mouth every afternoon. benzonatate (TESSALON PERLE) 100 mg capsule Take 2 capsules by mouth three times a day as needed. escitalopram oxalate (LEXAPRO) 5 mg tablet Take 5 mg by mouth. Omeprazole 40 mg capsule Take 1 capsule by mouth once daily. hydrOXYzine pamoate (VISTARIL) 50 mg capsule Take 1 capsule by mouth three times daily as needed for Anxiety. iron polysaccharide complex (FERREX 150) 150 mg iron capsule Take 1 capsule by mouth twice daily. Brompheniramine-Pseud oeph-DM (BROMFED DM) 2-30-10 mg/5 mL syrup Take 5 mL by mouth four times daily as needed. (Patient not taking: Reported on 04/14/2018) FLUoxetine HCl (PROZAC) 40 mg capsule Take 1 capsule by mouth once daily. (Patient not taking: Reported on 05/07/2018) ELIQUIS 5 mg tab(s) Take 1 tablet by mouth twice daily. (Patient not taking: Reported on 04/01/2018) nicotine (NICODERM) 21 mg/24 hr Apply 1 Patch as directed every 24 hours. For 6 weeks, then wean down (Patient not taking: Reported on 04/14/2018) nicotine (NICODERM) 14 mg/24 hr Apply 1 Patch as directed every 24 hours. No smoking with patch. Step 2 for 2 weeks, then wean down (Patient not taking: Reported on 04/14/2018) nicotine (NICODERM) 7 mg/24 hr Apply 1 Patch as directed every 24 hours. 2 wks, then stop (Patient not taking: Reported on 04/14/2018) famotidine (PEPCID) 20 mg tablet Take 1 tablet by mouth at bedtime as needed. (Patient not taking: Reported on 05/07/2018) FAMILY HISTORY Problem Relation Age of Onset Psychiatry Mother anxiety/depression Stroke Mother TIAs Seizures Mother Psychiatry Father anxiety/depression Cancer Maternal Grandmother cervical Breast Cancer Maternal Grandmother Cancer Paternal Grandmother bladder, liver, kidney Alzheimer's Disease Paternal (more content not included)... Normal [facility] CNOVon 11-02-2023 CNOV Office Visit ([facility] ) MIGUEL MELVIN ([id number]) 1975 F Date Time Provider Department 11/02/23 1:15 PM SHEYLA ALFONSO RUST During your visit today, we recorded the following information about you: Temperature Pulse Respiration Blood pressure 97.3 degrees 97/minute 18/minute 118/74 Weight 113.8 kg Sheyla Alfonso APRN.[facility] 11/02/2023 1:27 PM Addendum ASSESSMENT/PLAN: 1. Viral bronchitis - ICD9: 466.0, ICD10: J20.8 - PREDNISONE 10 MG TABLET - ALBUTEROL SULFATE HFA 90 MCG/ACTUATION AEROSOL INHALER 2. Otalgia of both ears - ICD9: 388.70, ICD10: H92.03 - ear exam is normal today. - Follow-up with your PCP in 3-5 days if symptoms have not improved or sooner if symptoms worsen - Discussed red flags and need for immediate medical evaluation if any occur. - Discussed supportive care treatment with fluids, rest and analgesia. - Discussed expected course of illness Sheyla Alfonso APRN.[employer] ACUTE BRONCHITIS: You have acute bronchitis. This means the airway passages in your lungs are inflamed. Bronchitis may be caused by viruses or bacteria. Inhaling cigarette smoke will always make it worse. Exposure to irritating chemicals or second hand smoke as well as allergies can contribute to bronchitis. Repeat episodes of bronchitis may cause lifelong lung problems. Acute bronchitis is usually treated with rest, fluids, cough medicine, and possibly antibiotics or inhaled medicine to open up the small airways. It is very important that you avoid smoke and drink increased amounts of fluids. A cool air vaporizer can help thin bronchial secretions. This makes it easier to cough and clear your chest. If you are a cigarette smoker, consider using nicotine gum or skin patches to help you withdraw. Recovery from bronchitis is often slow, but you should start feeling better after 2-3 days of treatment. Please call your doctor or return here if you have any of the following symptoms: Increased fever, chills, or chest pain. Severe shortness of breath or bloody sputum. Do not improve after 3 days of proper treatment. Sheyla Alfonso APRN.[employer] 11/02/2023 1:31 PM Signed Subjective Cough Associated symptoms include ear pain, shortness of breath and wheezing. Pertinent negatives include no chest pain, no chills, no sore throat and no myalgias. Miguel Melvin is a 48 year old female who presents with cough, chest congestion and shortness of breath for the past 8 days. She was seen here on 10/26 had COVID test and xray which were normal. Prescribed tessalon perlroxanne. Seen again on 10/28 given doxycycline for lower resp tract infection. She has taken most of the doxycyline and cough is persisting. Worse at night and she has trouble sleeping. Has intermittent sharp pains in bilateral ears. Still having nasal congestion. Review of Systems Constitutional: Negative for chills, fever and malaise/fatigue. HENT: Positive for congestion, ear pain and hearing loss. Negative for sore throat. Respiratory: Positive for cough, shortness of breath and wheezing. Negative for sputum production. Cardiovascular: Negative for chest pain and palpitations. Musculoskeletal: Negative for myalgias. BP 118/74 Pulse 97 Temp 36.3 ?C (97.3 ?F) (Tympanic) Resp 18 Wt 113.8 kg (250 lb 14.1 oz) LMP 09/26/2023 (Exact Date) SpO2 98% BMI 39.73 kg/m? PAST MEDICAL HISTORY No date: Anxiety and depression No date: Chronic cough No date: GERD (gastroesophageal reflux disease) No date: History of HPV infection No date: History of seizures as a child Comment: last age 18 No date: Obesity (BMI 30-39.9) 11/2017: Pulmonary embolism (HCC) No date: Tobacco use PAST SURGICAL HISTORY No date: ANESTH, SECTION No date: LIG/TRNSXJ FLP TUBE ABDL/VAG APPR UNI/BI No date: PAST SURGICAL HISTORY OF Comment: No date: TUBAL LIGATION HX ALLERGIES Cinnamon and Cymbalta [Duloxetine] MEDICATIONS doxycycline (VIBRA-TABS) 100 mg tablet Take 1 tablet by mouth two times a day for 5 days. VRAYLAR 3 mg capsule Take 1 capsule by mouth every afternoon. hydrOXYzine HCl (ATARAX) 25 mg tablet take 1 tablet by mouth twice a day for anxiety losartan (COZAAR) 25 mg tablet Take 1 tablet by mouth every afternoon. benzonatate (TESSALON PERLE) 100 mg capsule Take 2 capsules by mouth three times a day as needed. escitalopram oxalate (LEXAPRO) 5 mg tablet Take 5 mg by mouth. Omeprazole 40 mg capsule Take 1 capsule by mouth once daily. hydrOXYzine pamoate (VISTARIL) 50 mg capsule Take 1 capsule by mouth three times daily as needed for Anxiety. iron polysaccharide complex (FERREX 150) 150 mg iron capsule Take 1 capsule by mouth twice daily. predniSONE (DELTASONE) 10 mg tablet Take 4 tabs daily for 3 days, then 2 tabs daily for 3 days, then 1 tab daily for 3 days with food. albuterol HFA (PROVEN (more content not included)... Normal [facility] XR Chest PA and Lateralon IMPRESSION: Stable exam with no acute radiographic abnormality. Stripper Shovel Operator: ELIZABETH Transcribe Date/Time: Oct 27 2023 1:10P Dictated by : NIDIA NARANJO MD This examination was interpreted and the report reviewed and electronically signed by: NIDIA NARANJO MD on Oct 27 2023 1:10PM [facility] DIVISION OF RADIOLOGY * * *Final Report* * * DATE OF EXAM: Oct 27 2023 1:09PM WOX [id number] - XR CHEST 2V FRONTAL/LAT / PROCEDURE REASON: Acute cough * * * * Physician Interpretation * * * * EXAMINATION: CHEST RADIOGRAPH (2 VIEW FRONTAL & LATERAL) CLINICAL HISTORY: Acute cough MQ: [id number] EXAM DATE/TIME: 10/27/2023 1:09 PM COMPARISON: 07/30/2010. RESULT: Lines, tubes, and devices: None. Lungs and pleura: No consolidation. No lung mass. No pleural effusion. No pneumothorax. Cardiomediastinal silhouette: Normal cardiomediastinal silhouette. Bones and soft tissues: Unremarkable. DIV[facility]OLOGY [facility] * * *Final Report* * * DATE OF EXAM: Oct 27 2023 1:09PM WOX [id number] - XR CHEST 2V FRONTAL/LAT / PROCEDURE REASON: Acute cough * * * * Physician Interpretation * * * * EXAMINATION: CHEST RADIOGRAPH (2 VIEW FRONTAL & LATERAL) CLINICAL HISTORY: Acute cough MQ: [id number] EXAM DATE/TIME: 10/27/2023 1:09 PM COMPARISON: 07/30/2010. RESULT: Lines, tubes, and devices: None. Lungs and pleura: No consolidation. No lung mass. No pleural effusion. No pneumothorax. Cardiomediastinal silhouette: Normal cardiomediastinal silhouette. Bones and soft tissues: Unremarkable. IMPRESSION IMPRESSION: Stable exam with no acute radiographic abnormality. Stripper Shovel Operator: ELIZABETH Transcribe Date/Time: Oct 27 2023 1:10P Dictated by : NIDIA NARANJO MD This examination was interpreted and the report reviewed and electronically signed by: NIDIA NARANJO MD on Oct 27 2023 1:10PM EST [facility] Radiology Study observation (narrative) [facility] XR Chest PA and LateralOrder ed By: Ccf Provider on 10-27-2023 [facility] Absolute lymphocyte countOrd ered By: Princess Baca on 01-21-2023 Lymphocytes Auto (Unsp spec) [#/Vol] 2.08 10*3/uL 0.83-4.51 [facility] Basophil percentageOrdered B y: Princess Baca on 01-21-2023 Basophils/100 WBC (Bld) 0.8 % 0-1 [facility] Chloride [Moles/Vol] 104 mmol/L 98-107 [facility] Eosinophils/100 WBC (Bld) 3.1 % 0-5 [facility] Glucose [Mass/Vol] 107 mg/dL 74-106 [facility] Comment on above: Fasting Glucose resu lt from 100 to 125 mg/dL suggests IMPAIRED HOMEOSTASIS per A.D.A. criteria. Neutrophils (Bld) [#/Vol] 4.3 10*3/uL 2.0-7.7 [facility] Neutrophils/100 WBC (Bld) 59.8 % 47-70 [facility] Potassium [Moles/Vol] 3.5 mmol/L 3.5-5.1 [facility] Sodium [Moles/Vol] 136 mmol/L 136-145 [facility] WBC (Bld) [#/Vol] 7.1 10*3/uL 4.4-11.0 [facility] Blood erythrocytes count (nu mber/volume)Ordered By: Princess Baca on 01-21-2023 RBC (Bld) [#/Vol] 5.41 10*6/uL 4.2-5.4 [facility] Blood hemoglobin measurement (mass/volume)Ordered By: Princess Baca on 01-21-2023 Hemoglobin (Bld) [Mass/Vol] 14.5 g/dL 12.0-15.0 [facility] Blood lymphocytes/100 leukoc ytesOrdered By: Princess Baca on 01-21-2023 Lymphocytes/100 WBC (Bld) 29.1 % 19-41 [facility] Blood monocytes/100 leukocyt esOrdered By: Princess Baca on 01-21-2023 Monocytes/100 WBC (Bld) 6.9 % 0-10 [facility] Blood platelet mean volumeOr dered By: Princess Baca on 01-21-2023 Platelet mean volume (Bld) [Entitic vol] 11.5 fL 6.2-12.0 [facility] Determination of erythrocyte mean corpuscular volume (MCV)Ordered By: narenbrantwoodkyleigh Baca on 01-21-2023 MCV (RBC) [Entitic vol] 83.5 fL 81-99 [facility] Hematocrit Auto (Bld) [Volum e fraction]Ordered By: narenbrantwoodkyleigh Baca on 01-21-2023 Hematocrit (Bld) [Volume fraction] 45.2 % 37-47 [facility] Laboratory - Chemistry and C hemistry - challengeOrdered By: Princess Baca on 01-21-2023 CO2 [Moles/Vol] 25.0 mmol/L 21.0-32.0 [facility] Urea nitrogen/Creatinine [Mass ratio] 8.5 mg/mg 10-20 [facility] Laboratory - Hematology and Cell countsOrdered By: monika Baca on 01-21-2023 Erythrocyte distribution width (RBC) [Entitic vol] 40.6 fL 35.1-43.9 [facility] Erythrocyte distribution width (RBC) [Ratio] 13.4 % 11.6-14.6 [facility] Immature granulocytes/100 WBC (Bld) 0.300 % 0.0-0.9 [facility] Comment on above: IG% - Immature Granu locytes (promyelocytes, myelocytes and metamyelocytes) > 1% indicates that a LEFT SHIFT is Present. MCH (RBC) [Entitic mass] 26.8 pg 27.0-32.0 [facility] Nucleated RBC/100 WBC (Bld) [Ratio] 0 % 0-5 [facility] MCHC Auto (RBC) [Mass/Vol]Or dered By: Princess Baca on 01-21-2023 MCHC (RBC) [Mass/Vol] 32.1 g/dL 32-36 [facility] No Panel InformationOrdered By: Princess Baca on 01-21-2023 Estimated GFR (MDRD) Amer 82 mL/min >60 [facility] Comment on above: GFR Calc Estimated GFR (MDRD) Non-Af Amer 68 mL/min >60 [facility] Comment on above: Non- GFR Calc Platelets bldOrdered By: Jamil Baca on 01-21-2023 Platelets (Bld) [#/Vol] 296 10*3/uL 150-450 [facility] Serum or plasma calcium jil urement (mass/volume)Ordered By: Princess Baca on 01-21-2023 Calcium [Mass/Vol] 9.0 mg/dL 8.5-10.1 [facility] Serum or plasma creatinine m easurement (mass/volume)Ordered By: Princess Baca on 01-21-2023 Creatinine [Mass/Vol] 0.95 mg/dL 0.55-1.02 [facility] Comment on above: The validity of the calculated GFR & GFRAA in patients over 70 years has not been determined. Clinical correlation is essential. Serum or plasma urea nitroge n measurement (mass/volume)Ordered By: Princess Baca on 01-21-2023 Urea nitrogen [Mass/Vol] 8 mg/dL 7-18 [facility] Thin prep Papanicolaou smear with manual screeningOrdered By: Princess Baca on 01-21-2023 Thin prep Papanicolaou smear with manual screening 7 5-15 [facility] Laboratory - Hematology and Cell countson 08-13-2022 HbA1c (Bld) [Mass fraction] 5.7 % 4.2-6.3 [facility] Absolute lymphocyte countOrd ered By: Dr. Baca on 06-02-2022 Lymphocytes Auto (Unsp spec) [#/Vol] 1.92 10*3/uL 0.83-4.51 [facility] Basophil percentageOrdered B y: Dr. Baca on 06-02-2022 Basophils/100 WBC (Bld) 0.5 % 0-1 [facility] Bilirubin [Mass/Vol] 0.50 mg/dL 0.20-1.00 [facility] Comment on above: For patients on eltr ombopag therapy, use of [facility] TBIL is not recommended. Chloride [Moles/Vol] 104 mmol/L 98-107 [facility] Cholesterol [Mass/Vol] 182 mg/dL <200 [facility] Comment on above: <200 mg/dL Desirable 200-240 mg/dL Borderline >240 mg/dL High Risk Eosinophils/100 WBC (Bld) 1.9 % 0-5 [facility] Glucose [Mass/Vol] 104 mg/dL 74-106 [facility] Comment on above: Fasting Glucose resu lt from 100 to 125 mg/dL suggests IMPAIRED HOMEOSTASIS per A.D.A. criteria. Neutrophils (Bld) [#/Vol] 3.7 10*3/uL 2.0-7.7 [facility] Neutrophils/100 WBC (Bld) 59.1 % 47-70 [facility] Potassium [Moles/Vol] 3.9 mmol/L 3.5-5.1 [facility] Protein [Mass/Vol] 7.3 g/dL 6.4-8.2 [facility] Sodium [Moles/Vol] 135 mmol/L 136-145 [facility] Triglyceride [Mass/Vol] 70 mg/dL <199 [facility] Comment on above: The drugs N-Acetylcy steine and Metamizole may falsely depress this assay.Serum Triglycerides Reference Interval Normal <150 mg/dL Borderline high 150 - 199 mg/dL High 200 - 499 mg/dL Very High > or = 500 mg/dL WBC (Bld) [#/Vol] 6.3 10*3/uL 4.4-11.0 [facility] Blood erythrocytes count (nu mber/volume)Ordered By: Dr. Baca on 06-02-2022 RBC (Bld) [#/Vol] 5.29 10*6/uL 4.2-5.4 [facility] Blood hemoglobin measurement (mass/volume)Ordered By: Dr. Baca on 06-02-2022 Hemoglobin (Bld) [Mass/Vol] 15.1 g/dL 12.0-15.0 [facility] Blood lymphocytes/100 leukoc ytesOrdered By: Dr. Baca on 06-02-2022 Lymphocytes/100 WBC (Bld) 30.4 % 19-41 [facility] Blood monocytes/100 leukocyt esOrdered By: Dr. Baca on 06-02-2022 Monocytes/100 WBC (Bld) 6.8 % 0-10 [facility] Blood platelet mean volumeOr dered By: Dr. Baca on 06-02-2022 Platelet mean volume (Bld) [Entitic vol] 10.9 fL 6.2-12.0 [facility] Determination of erythrocyte mean corpuscular volume (MCV)Ordered By: Dr. Baca on 06-02-2022 MCV (RBC) [Entitic vol] 86.6 fL 81-99 [facility] Hematocrit Auto (Bld) [Volum e fraction]Ordered By: Dr. Baca on 06-02-2022 Hematocrit (Bld) [Volume fraction] 45.8 % 37-47 [facility] Laboratory - Chemistry and C hemistry - challengeOrdered By: Dr. Baca on 06-02-2022 ALP [Catalytic activity/Vol] 109 U/L 45-117 [facility] ALT [Catalytic activity/Vol] 25 U/L 13-56 [facility] CO2 [Moles/Vol] 23.0 mmol/L 21.0-32.0 [facility] Free T4 [Mass/Vol] 1.09 ng/dL 0.76-1.46 [facility] Globulin (S) [Mass/Vol] 3.6 g/dL 2.2-4.2 [facility] Urea nitrogen/Creatinine [Mass ratio] 8.1 mg/mg 10-20 [facility] Laboratory - Hematology and Cell countsOrdered By: Dr. Baca on 06-02-2022 Erythrocyte distribution width (RBC) [Entitic vol] 39.0 fL 35.1-43.9 [facility] Erythrocyte distribution width (RBC) [Ratio] 12.2 % 11.6-14.6 [facility] Immature granulocytes/100 WBC (Bld) 1.300 % 0.0-0.9 [facility] Comment on above: IG% - Immature Granu locytes (promyelocytes, myelocytes and metamyelocytes) > 1% indicates that a LEFT SHIFT is Present. MCH (RBC) [Entitic mass] 28.5 pg 27.0-32.0 [facility] Nucleated RBC/100 WBC (Bld) [Ratio] 0 % 0-5 [facility] MCHC Auto (RBC) [Mass/Vol]Or dered By: Dr. Baca on 06-02-2022 MCHC (RBC) [Mass/Vol] 33.0 g/dL 32-36 [facility] No Panel InformationOrdered By: Dr. Baca on 06-02-2022 Estimated GFR (MDRD) Amer 78 mL/min >60 [facility] Comment on above: GFR Calc Estimated GFR (MDRD) Non-Af Amer 65 mL/min >60 [facility] Comment on above: Non- GFR Calc Thyroid Stimulating Hormone (TSH) 1.00 uIU/mL 0.358-3.74 [facility] Platelets bldOrdered By: Dr. Baca on 06-02-2022 Platelets (Bld) [#/Vol] 267 10*3/uL 150-450 [facility] Serum or plasma albumin jil urement (mass/volume)Ordered By: Dr. Baca on 06-02-2022 Albumin [Mass/Vol] 3.7 g/dL 3.2-5.0 [facility] Serum or plasma albumin/glob ulin mass ratioOrdered By: Dr. Baca on 06-02-2022 Albumin/Globulin [Mass ratio] 1.0 {ratio} 0.9-2.4 [facility] Serum or plasma calcium jil urement (mass/volume)Ordered By: Dr. Baca on 06-02-2022 Calcium [Mass/Vol] 8.8 mg/dL 8.5-10.1 [facility] Serum or plasma cholesterol in HDL measurement (mass/volume)Ordered By: Dr. Baca on 06-02-2022 Cholesterol in HDL [Mass/Vol] 55 mg/dL >40 [facility] Comment on above: The drugs N-Acetylcy steine and Metamizole may falsely depress this assay. Reference Range HDL <40 mg/dL Low HDL Cholesterol HDL >or= 60 mg/dL High HDL Cholesterol Serum or plasma cholesterol in VLDL measurement (mass/volume)Ordered By: Dr. Baca on 06-02-2022 Cholesterol in VLDL [Mass/Vol] 14 mg/dL 5-40 [facility] Serum or plasma creatinine m easurement (mass/volume)Ordered By: Dr. Baca on 06-02-2022 Creatinine [Mass/Vol] 0.99 mg/dL 0.55-1.02 [facility] Comment on above: The validity of the calculated GFR & GFRAA in patients over 70 years has not been determined. Clinical correlation is essential. Serum or plasma low density lipoprotein (LDL) cholesterol measurement (mass/volume)Ordered By: Dr. Baca on 06-02-2022 Cholesterol in LDL [Mass/Vol] 113 mg/dL 0-130 [facility] Serum or plasma urea nitroge n measurement (mass/volume)Ordered By: Dr. Baca on 06-02-2022 Urea nitrogen [Mass/Vol] 8 mg/dL 7-18 [facility] Thin prep Papanicolaou smear with manual screeningOrdered By: Dr. Baca on 06-02-2022 Thin prep Papanicolaou smear with manual screening 11 U/L 15-37 [facility] Thin prep Papanicolaou smear with manual screening 8 5-15 [facility] Vital Signs Date Time Vital Sign Value Performing Clinician Facility 05-09-2024 13:42-0500 Body mass index (BMI) [Ratio] 39.48 kg/m2 Jose Manuel ClHuddlebuy PA-C Work Phone: [facility] 05-09-2024 13:42-0500 Body temperature 97 [degF] Jose Manuel Clutter PA-C Work Phone: [facility] 05-09-2024 13:42-0500 Body weight 113.1 kg Jose Manuel Clutter PA-C Work Phone: [facility] 05-09-2024 13:42-0500 Diastolic blood pressure 82 mm[Hg] Jose Manuel Clutter PA-C Work Phone: [facility] 05-09-2024 13:42-0500 Heart rate 60 /min Jose Manuel Clutter PA-C Work Phone: [facility] 05-09-2024 13:42-0500 Respiratory rate 16 /min Jose Manuel Clutter PA-C Work Phone: [facility] 05-09-2024 13:42-0500 SaO2% (BldA) [Mass fraction] 98 % Jose Manuel Clutter PA-C Work Phone: [facility] 05-09-2024 13:42-0500 Systolic blood pressure 136 mm[Hg] Jose Manuel Clutter PA-C Work Phone: [facility] 04-11-2024 10:22-0500 Body mass index (BMI) [Ratio] 38.68 kg/m2 Sheyla Praisler-Wood TUMBLING MACHINE OPERATOR.[employer] Work Phone: [facility] 04-11-2024 10:22-0500 Body temperature 97.59 [degF] Sheyla Praisler-Wood TUMBLING MACHINE OPERATOR.[employer] Work Phone: [facility] 04-11-2024 10:22-0500 Body weight 110.8 kg Sheyla Praisler-Wood TUMBLING MACHINE OPERATOR.[employer] Work Phone: [facility] 04-11-2024 10:22-0500 Diastolic blood pressure 72 mm[Hg] Sheyla Praisler-Wood TUMBLING MACHINE OPERATOR.[employer] Work Phone: [facility] 04-11-2024 10:22-0500 Heart rate 68 /min Sheyla Praisler-Wood TUMBLING MACHINE OPERATOR.[employer] Work Phone: [facility] 04-11-2024 10:22-0500 Respiratory rate 16 /min Sheyla Praisler-Wood TUMBLING MACHINE OPERATOR.[employer] Work Phone: [facility] 04-11-2024 10:22-0500 SaO2% (BldA) [Mass fraction] 96 % Sheyla Praisler-Wood TUMBLING MACHINE OPERATOR.[employer] Work Phone: [facility] 04-11-2024 10:22-0500 Systolic blood pressure 118 mm[Hg] Sheyla Praisler-Wood TUMBLING MACHINE OPERATOR.[employer] Work Phone: [facility] 11-07-2023 12:57-0400 Body mass index (BMI) [Ratio] 40.22 kg/m2 Jayda Peñaloza APRN.[employer] Work Phone: [facility] 11-07-2023 12:57-0400 Body temperature 97.81 [degF] Jayda Peñaloza APRN.[employer] Work Phone: [facility] 11-07-2023 12:57-0400 Body weight 115.2 kg Jayda Peñaloza APRN.[employer] Work Phone: [facility] 11-07-2023 12:57-0400 Diastolic blood pressure 61 mm[Hg] Jayda Peñaloza APRN.[employer] Work Phone: [facility] 11-07-2023 12:57-0400 Heart rate 69 /min Jayda Peñaloza APRN.[employer] Work Phone: [facility] 11-07-2023 12:57-0400 Respiratory rate 18 /min Jayda Peñaloza APRN.[employer] Work Phone: [facility] 11-07-2023 12:57-0400 SaO2% (BldA) [Mass fraction] 98 % Jayda Peñaloza APRN.[employer] Work Phone: [facility] 11-07-2023 12:57-0400 Systolic blood pressure 132 mm[Hg] Jayda Peñaloza APRN.[employer] Work Phone: [facility] 11-02-2023 13:06-0400 Body mass index (BMI) [Ratio] 39.73 kg/m2 Sheyla Alfonso APRN.[employer] Work Phone: [facility] 11-02-2023 13:06-0400 Body temperature 97.3 [degF] Sheyla Alfonso APRN.[employer] Work Phone: [facility] 11-02-2023 13:06-0400 Body weight 113.8 kg Sheyla Alfonso APRN.[employer] Work Phone: [facility] 11-02-2023 13:06-0400 Diastolic blood pressure 74 mm[Hg] Sheyla Alfonso APRN.[employer] Work Phone: [facility] 11-02-2023 13:06-0400 Heart rate 97 /min Sheyla Praisler-Wood TUMBLING MACHINE OPERATOR.[employer] Work Phone: [facility] 11-02-2023 13:06-0400 Respiratory rate 18 /min Sheyla Praisler-Wood TUMBLING MACHINE OPERATOR.[employer] Work Phone: [facility] 11-02-2023 13:06-0400 SaO2% (BldA) [Mass fraction] 98 % Sheyla Praisler-Wood TUMBLING MACHINE OPERATOR.[employer] Work Phone: [facility] 11-02-2023 13:06-0400 Systolic blood pressure 118 mm[Hg] Sheyla Praisler-Wood TUMBLING MACHINE OPERATOR.[employer] Work Phone: [facility] 10-29-2023 10:28-0400 Body mass index (BMI) [Ratio] 39.45 kg/m2 Humberto Pendlebury TUMBLING MACHINE OPERATOR.[employer] Work Phone: [facility] 10-29-2023 10:28-0400 Body temperature 100.51 [degF] Humberto Pendlebury TUMBLING MACHINE OPERATOR.[employer] Work Phone: [facility] 10-29-2023 10:28-0400 Body weight 113 kg Humberto Pendprachi TUMBLING MACHINE OPERATOR.[employer] Work Phone: [facility] 10-29-2023 10:28-0400 Diastolic blood pressure 80 mm[Hg] Humberto Pendlebury TUMBLING MACHINE OPERATOR.[employer] Work Phone: [facility] 10-29-2023 10:28-0400 Heart rate 85 /min Humberto Pendlebury TUMBLING MACHINE OPERATOR.[employer] Work Phone: [facility] 10-29-2023 10:28-0400 Respiratory rate 20 /min Humberto Pendlebury TUMBLING MACHINE OPERATOR.[employer] Work Phone: [facility] 10-29-2023 10:28-0400 SaO2% (BldA) [Mass fraction] 96 % Humberto Pendlebury TUMBLING MACHINE OPERATOR.[employer] Work Phone: [facility] 10-29-2023 10:28-0400 Systolic blood pressure 112 mm[Hg] Humberto Miller TUMBLING MACHINE OPERATOR.[employer] Work Phone: [facility] 10-27-2023 12:37-0400 Body mass index (BMI) [Ratio] 40.18 kg/m2 Jaylan Rand TUMBLING MACHINE OPERATOR.[employer] Work Phone: [facility] 10-27-2023 12:37-0400 Body temperature 97.59 [degF] Jaylan Rand TUMBLING MACHINE OPERATOR.[employer] Work Phone: [facility] 10-27-2023 12:37-0400 Body weight 115.1 kg Jaylan Rand TUMBLING MACHINE OPERATOR.[employer] Work Phone: [facility] 10-27-2023 12:37-0400 Diastolic blood pressure 66 mm[Hg] Jaylan Rand TUMBLING MACHINE OPERATOR.[employer] Work Phone: [facility] 10-27-2023 12:37-0400 Heart rate 88 /min Jaylan Rand TUMBLING MACHINE OPERATOR.[employer] Work Phone: [facility] 10-27-2023 12:37-0400 Respiratory rate 16 /min Jaylan Rand TUMBLING MACHINE OPERATOR.[employer] Work Phone: [facility] 10-27-2023 12:37-0400 SaO2% (BldA) [Mass fraction] 98 % Jaylan Rand TUMBLING MACHINE OPERATOR.[employer] Work Phone: [facility] 10-27-2023 12:37-0400 Systolic blood pressure 112 mm[Hg] Jaylan Rand TUMBLING MACHINE OPERATOR.[employer] Work Phone: [facility] 09-01-2023 12:31-0400 Body mass index (BMI) [Ratio] 40.49 kg/m2 Humberto Miller TUMBLING MACHINE OPERATOR.[employer] Work Phone: [facility] 09-01-2023 12:31-0400 Body temperature 97.3 [degF] Humberto Miller TUMBLING MACHINE OPERATOR.[employer] Work Phone: [facility] 09-01-2023 12:31-0400 Body weight 116 kg Humberto Miller TUMBLING MACHINE OPERATOR.[employer] Work Phone: [facility] 09-01-2023 12:31-0400 Diastolic blood pressure 72 mm[Hg] Humberto Davidleyesika TUMBLING MACHINE OPERATOR.[employer] Work Phone: [facility] 09-01-2023 12:31-0400 Heart rate 84 /min Humberto Kimyesika TUMBLING MACHINE OPERATOR.[employer] Work Phone: [facility] 09-01-2023 12:31-0400 Respiratory rate 18 /min Humberto Kimyesika TUMBLING MACHINE OPERATOR.[employer] Work Phone: [facility] 09-01-2023 12:31-0400 SaO2% (BldA) [Mass fraction] 98 % Humberto Davidangelitoyesika TUMBLING MACHINE OPERATOR.[employer] Work Phone: [facility] 09-01-2023 12:31-0400 Systolic blood pressure 124 mm[Hg] Humberto Kimyesika TUMBLING MACHINE OPERATOR.[employer] Work Phone: [facility] 08-14-2023 10:41-0400 Body mass index (BMI) [Ratio] 40.39 kg/m2 Jaylan Rand TUMBLING MACHINE OPERATOR.[employer] Work Phone: [facility] 08-14-2023 10:41-0400 Body temperature 96.91 [degF] Jaylan Rand APRN.[employer] Work Phone: [facility] 08-14-2023 10:41-0400 Body weight 115.7 kg Jaylan Rand APRN.[employer] Work Phone: [facility] 08-14-2023 10:41-0400 Diastolic blood pressure 78 mm[Hg] Jaylan Rand TUMBLING MACHINE OPERATOR.[employer] Work Phone: [facility] 08-14-2023 10:41-0400 Heart rate 66 /min Jaylan Rand TUMBLING MACHINE OPERATOR.[employer] Work Phone: [facility] 08-14-2023 10:41-0400 Respiratory rate 16 /min Jaylan Rand TUMBLING MACHINE OPERATOR.[employer] Work Phone: [facility] 08-14-2023 10:41-0400 SaO2% (BldA) [Mass fraction] 97 % Jaylan Rand APRN.[employer] Work Phone: [facility] 08-14-2023 10:41-0400 Systolic blood pressure 138 mm[Hg] Jaylan Rand [employer] Work Phone: [facility] 01-21-2023 13:18-0400 Body height 167.[address] Princess Baca Work Phone: [facility] 01-21-2023 13:18-0400 Body mass index (BMI) [Ratio] 42.1 kg/m2 Dr. Princess Baca Work Phone: [facility] 01-21-2023 13:18-0400 Body temperature 96.5 [degF] Dr. Princess Baca Work Phone: [facility] 01-21-2023 13:18-0400 Body weight 118.[address] Princess Baca Work Phone: [facility] 01-21-2023 13:18-0400 Diastolic blood pressure 80 mm[Hg] Dr. Princess Baca Work Phone: [facility] 01-21-2023 13:18-0400 Heart rate 77 /min Dr. Princess Baca Work Phone: [facility] 01-21-2023 13:18-0400 Respiratory rate 16 /min Dr. Princess Baca Work Phone: [facility] 01-21-2023 13:18-0400 SaO2% (BldA) [Mass fraction] 98 % Dr. Princess Baca Work Phone: [facility] 01-21-2023 13:18-0400 Systolic blood pressure 118 mm[Hg] Dr. Princess Baca Work Phone: [facility] 09-29-2022 14:19-0400 Body height 167.[address] Princess Baca Work Phone: [facility] 09-29-2022 14:19-0400 Body weight 122.[address] Princess Baca Work Phone: [facility] 08-13-2022 14:33-0400 Body mass index (BMI) [Ratio] 42.9 kg/m2 Dr. Princess Baca Work Phone: [facility] 08-13-2022 14:33-0400 Body temperature 97.3 [degF] Dr. Princess Baca Work Phone: [facility] 08-13-2022 14:33-0400 Body weight 120.[address] Princess Baca Work Phone: [facility] 08-13-2022 14:33-0400 Diastolic blood pressure 78 mm[Hg] Dr. Princess Baca Work Phone: [facility] 08-13-2022 14:33-0400 Heart rate 77 /min Dr. Princess Baca Work Phone: [facility] 08-13-2022 14:33-0400 Respiratory rate 14 /min Dr. Princess Baca Work Phone: [facility] 08-13-2022 14:33-0400 SaO2% (BldA) [Mass fraction] 96 % Dr. Princess Baca Work Phone: [facility] 08-13-2022 14:33-0400 Systolic blood pressure 120 mm[Hg] Dr. Princess Baca Work Phone: [facility] 06-02-2022 11:04-0400 Body height 167.[address] Princess Baca Work Phone: [facility] 06-02-2022 11:04-0400 Body mass index (BMI) [Ratio] 42.1 kg/m2 Dr. Princess Baca Work Phone: [facility] 06-02-2022 11:04-0400 Body temperature 97.2 [degF] Dr. Princess Baca Work Phone: [facility] 06-02-2022 11:04-0400 Body weight 118.[address] Princess Baca Work Phone: [facility] 06-02-2022 11:04-0400 Diastolic blood pressure 82 mm[Hg] Dr. Princess Baca Work Phone: [facility] 06-02-2022 11:04-0400 Heart rate 78 /min Dr. Princess Baca Work Phone: [facility] 06-02-2022 11:04-0400 Respiratory rate 14 /min Dr. Princess Baca Work Phone: [facility] 06-02-2022 11:04-0400 SaO2% (BldA) [Mass fraction] 97 % Dr. Princess Baca Work Phone: [facility] 06-02-2022 11:04-0400 Systolic blood pressure 118 mm[Hg] Dr. Princess Baca Work Phone: [facility] Encounters Encounter Date Encounter Type Care Provider Facility Start: 01-31-2025 ambulatory Efmannybe Chuyghe Facili ty:[facility] Start: 11-07-2024 End: 11-07-2024 ambulatory Princess [place] [facility] Start: 11-04-2024 End: 11-04-2024 ambulatory Efewyasmeen Veraghe [facility] Start: 10-27-2024 End: 10-27-2024 ambulatory JAYDA PEÑALOZA Facility:[facility] Start: 09-29-2024 ambulatory Efewarleenbe Chuyghe Facili ty:[facility] Start: 09-15-2024 End: 09-15-2024 ambulatory Efewyasmeen Veraghe [facility] Start: 08-30-2024 End: 08-31-2024 ambulatory Efmonika Veraghe Facility:[facility] Start: 08-25-2024 ambulatory Efewongbe Oleghe Facili ty:[facility] Start: 08-22-2024 End: 08-22-2024 ambulatory Efewongbe Oleghe Facility:[facility] Start: 08-17-2024 ambulatory Efewongbe Oleghe Facili ty:[facility] Start: 08-16-2024 End: 08-16-2024 ambulatory Efewongbe Oleghe [facility] Start: 08-16-2024 End: 08-16-2024 ambulatory Efewongbe Oleghe Facility:[facility] Start: 08-01-2024 End: 08-01-2024 ambulatory Efewongbe Oleghe Facility:[facility] Start: 07-27-2024 End: 07-27-2024 ambulatory Efewongbe Oleghe [facility] Start: 07-13-2024 ambulatory Efewongbe Oleghe Facili ty:[facility] Start: 07-05-2024 ambulatory Efewongbe Oleghe Facili ty:[facility] Start: 06-20-2024 End: 06-20-2024 ambulatory Efewongbe Oleghe Facility:[facility] Start: 06-13-2024 End: 06-13-2024 ambulatory Efewongbe Oleghe Facility:[facility] Start: 06-06-2024 End: 06-06-2024 [facility] Start: 06-02-2024 ambulatory Efewongbe Oleghe Facili ty:[facility] Start: 05-30-2024 End: 05-30-2024 ambulatory Efewongbe Oleghe Facility:[facility] Start: 05-26-2024 ambulatory Efewongbe Oleghe Facili ty:[facility] Start: 05-23-2024 End: 05-23-2024 ambulatory Efewongbe Oleghe Facility:[facility] Start: 05-09-2024 End: 05-09-2024 ambulatory EFEWONGBE B OLEGHE Facility:[facility] Start: 05-09-2024 End: 05-09-2024 Office outpatient visit 25 minutes Jose Manuel Colunga PA-C Work Phone: [facility] Comment on above: Urticaria of unknown origin (Primary Dx) Start: 04-25-2024 End: 04-25-2024 ambulatory [facility] Facility:[facility] Start: 04-25-2024 End: 04-25-2024 ambulatory [facility] Facility:[facility] Start: 04-20-2024 Encounter for genera l adult medical examination without abnormal findings [facility] Start: 04-20-2024 End: 04-20-2024 ambulatory [facility] Start: 04-15-2024 ambulatory [facility] Fac[facility] ty:[facility] Start: 04-11-2024 End: 04-11-2024 ambulatory [facility] Facility:[facility] Start: 04-11-2024 End: 04-11-2024 Patient encounter procedure Sheyla Alfonso APRN.[employer] Work Phone: [facility] Comment on above: Conjunctivitis of christy th eyes, unspecified conjunctivitis type (Primary Dx) Start: 04-05-2024 End: 04-05-2024 ambulatory [facility] Facility:[facility] Start: 04-02-2024 ambulatory [facility] Fa cility:[facility] Start: 02-22-2024 End: 03-22-2024 [facility] Start: 02-12-2024 End: 02-20-2024 ambulatory [facility] Facility:[facility] Start: 01-26-2024 End: 01-26-2024 ambulatory [facility] Start: 01-20-2024 End: 01-21-2024 [facility] Start: 01-13-2024 End: 01-13-2024 Emergency department patient visit [facility] Facility:[facility] Start: 12-16-2023 End: 12-21-2023 ambulatory [facility] Start: 12-15-2023 End: 12-15-2023 ambulatory Noemi Virgen [facility] Start: 11-30-2023 End: 11-30-2023 ambulatory Thae Navarro EMISSIONS REPAIR TECHNICIAN Facility:[facility] Start: 11-26-2023 End: 11-26-2023 ambulatory Izzy Rowe Facility:[facility] Start: 11-18-2023 End: 11-18-2023 ambulatory Princess Baca Facility:[facility] Start: 11-07-2023 End: 11-07-2023 ambulatory [facility] Facility:[facility] Start: 11-07-2023 End: 11-07-2023 Patient encounter procedure Jayda Peñaloza APRN.[employer] Work Phone: [facility] Comment on above: Acute cough (Primary Dx); Respiratory infection Start: 11-02-2023 End: 11-02-2023 ambulatory [facility] Facility:[facility] Start: 11-02-2023 End: 11-02-2023 Patient encounter procedure Sheyla Alfonso APRN.[employer] Work Phone: [facility] Comment on above: Viral bronchitis (Pr imary Dx); Otalgia of both ears Start: 10-29-2023 End: 10-29-2023 Office outpatient visit 25 minutes Humberto Miller APRN.[employer] Work Phone: [facility] Comment on above: Lower respiratory tr act infection (Primary Dx) Start: 10-27-2023 End: 10-27-2023 [facility]: [facility] Comment on above: Acute cough [R05.1] Start: 10-27-2023 End: 10-27-2023 Patient encounter procedure Jaylan Rand APRN.[employer] Work Phone: [facility] Comment on above: URI, acute (Primary Dx); Acute cough Start: 09-01-2023 End: 09-01-2023 Office outpatient visit 15 minutes Humberto Miller APRN.TARA Work Phone: [facility] Comment on above: Nausea vomiting and diarrhea (Primary Dx) Start: 08-14-2023 End: 08-14-2023 Patient encounter procedure Jaylan Rand APRN.CNP Work Phone: [facility] Comment on above: Vomiting and diarrhe a (Primary Dx) Start: 01-21-2023 End: 01-21-[address] Princess Baca Work Phone: [facility] Work Phone: Start: 01-21-2023 End: 01-21-[address] Princess Baca Work Phone: [facility] Work Phone: Start: 09-29-2022 End: 10-20-[address] Princess Baca Work Phone: [facility] Work Phone: Start: 09-29-2022 End: 10-20-[address] Princess Baca Work Phone: [facility] Work Phone: Start: 08-13-2022 End: 08-13-[address] Princess Baca Work Phone: [facility] Work Phone: Start: 06-02-2022 End: 06-02-[address] Princess Baca Work Phone: [facility] Work Phone: Start: 06-02-2022 End: 06-02-[address] Princess Baca Work Phone: [facility] Start: 02-05-2017 Ambulatory NHUNG MOROCHO Facility :[facility] Procedures Date Procedure Procedure Detail Performing Clinician Start: 10-27-2023 Radiologic exam ches t 2 views Jaylan Rand APRN.[employer] Work Phone: Start: 07-13-2017 Lipid 1996 panel - S tom or Plasma Jaylan Rand APRN.[employer] Work Phone: Plan of Treatment Date Care Activity Detail Author Start: 05-20-2026 Urine microalbumin profile DTaP,Tdap,Td Vaccine (7 - Td or Tdap) [facility] Start: 08-27-2025 Screening for malign ant neoplasm of colon [facility] Start: 11-22-2023 Covid-19 Vaccine () Covid-19 Vaccine () [facility] Start: 11-22-2023 Covid-19 Vaccine () Covid-19 Vaccine () [facility] Start: 11-22-2023 Influenza vaccination Influenza Vacc ine (#1) [facility] Start: 01-21-2023 Patient referral [facility] Work Phone: Start: 11-21-2022 Covid-19 Vaccine () Covid-19 Vaccine () [facility] Start: 08-14-2022 Patient referral [facility] Work Phone: Start: 07-13-2022 Lipid panel Lipid Screening [facility] Start: 2022 Diabetes Screening Diabetes Screenin g [facility] Start: 2022 Screening for malign ant neoplasm of colon [facility] Start: 06-02-2022 Patient referral [facility] Work Phone: Start: 11-17-2017 Pneumococcal vaccination Pneumococcal Vaccine (2 of 2 - PCV) [facility] Start: 2017 Screening for malign ant neoplasm of breast Mammogram Screening [facility] Start: 11-11-2010 Screening for malign ant neoplasm of cervix Pap Testing [facility] Start: 11-11-2008 Screening for malign ant neoplasm of cervix Cervical Cancer Screening [facility] Start: 06-26-2007 Screening for malign ant neoplasm of cervix HPV Testing [facility] Start: 1996 Hepatitis B Vaccine (1 of 3 - 19+ 3-dose series) Hepatitis B Vaccine (1 of 3 - 19+ 3-dose series) [facility] Start: 06-26-1995 Hepatitis C screening Hepatitis C Sc reeyany [facility] Start: 06-26-1995 HIV screening HIV Screening [facility] COVID & INFLUENZA A/ B & RSV NAAT, ROUTINE COVID & INFLUENZA A/B & RSV NAAT, ROUTINE Microbiology Routine URI, acute Ordered: 10/27/2023 [facility] Work Phone: Comment on above: Ordered: 10/27/2023 Patient referral [facility] Work Phone: Immunizations Immunization Date Immunization Notes Care Provider Fa [facility] 01-21-2023 influenza, injectabl e, quadrivalent, preservative free Dr. Princess Baca Work Phone: [facility] 01-21-2023 influenza virus vacc ine, unspecified formulation Jaylan Giorgi TUMBLING MACHINE OPERATOR.[employer] Work Phone: [facility] 12-19-2019 influenza, injectabl e, quadrivalent, preservative free Dr. Princess Baca Work Phone: [facility] 12-19-2019 influenza, seasonal, injectable Dr. Princess Baca Work Phone: [facility] 11-17-2016 pneumococcal polysaccharide vaccine, 23 valent Jaylan Rand TUMBLING MACHINE OPERATOR.[employer] Work Phone: [facility] 05-20-2016 tetanus toxoid, redu jessica diphtheria toxoid, and acellular pertussis vaccine, adsorbed Jaylan Giorgi TUMBLING MACHINE OPERATOR.[employer] Work Phone: [facility] 05-02-1986 tuberculin skin test ; purified protein derivative solution, intradermal Xr [facility] Work Phone: [facility] 10-23-1982 diphtheria, tetanus toxoids and pertussis vaccine Jaylan Giorgi TUMBLING MACHINE OPERATOR.[employer] Work Phone: [facility] 10-23-1982 trivalent poliovirus vaccine, live, oral Jaylan Giorgi TUMBLING MACHINE OPERATOR.[employer] Work Phone: [facility] 05-02-1980 diphtheria, tetanus toxoids and pertussis vaccine Jaylan Giorgi TUMBLING MACHINE OPERATOR.[employer] Work Phone: [facility] 05-02-1980 trivalent poliovirus vaccine, live, oral Jaylan Giorgi TUMBLING MACHINE OPERATOR.[employer] Work Phone: [facility] 01-22-1979 measles, mumps and rubella virus vaccine Jaylan Giorgi TUMBLING MACHINE OPERATOR.[employer] Work Phone: [facility] 1977 diphtheria, tetanus toxoids and pertussis vaccine Jaylan Giorgi TUMBLING MACHINE OPERATOR.[employer] Work Phone: [facility] 1977 trivalent poliovirus vaccine, live, oral Jaylan Giorgi TUMBLING MACHINE OPERATOR.[employer] Work Phone: [facility] 1977 diphtheria, tetanus toxoids and pertussis vaccine Jaylan Giorgi TUMBLING MACHINE OPERATOR.[employer] Work Phone: [facility] 1977 trivalent poliovirus vaccine, live, oral Jaylan Giorgi TUMBLING MACHINE OPERATOR.[employer] Work Phone: [facility] 1977 diphtheria, tetanus toxoids and pertussis vaccine Jaylan Giorgi TUMBLING MACHINE OPERATOR.[employer] Work Phone: [facility] Work Phone: 1977 trivalent poliovirus vaccine, live, oral Jaylan Giorgi TUMBLING MACHINE OPERATOR.[employer] Work Phone: [facility] Payers Date Payer Category Payer Self-pay [id number] 2022 Medicaid [id number] 2022 Unknown [id number] Medicaid [id number] Unknown [id number] 2.16.8 40.1.000213.3.579.2.462 Unknown [id number] 2.16.8 40.1.728844.3.579.2.462 Unknown [id number] 2.16.8 40.1.877427.3.579.2.462 Unknown [id number] 2.16.8 40.1.779937.3.579.2.462 Unknown [id number] 2.16.8 40.1.884106.3.579.2.462 Unknown [id number] 2.16.8 40.1.121537.3.579.2.462 Unknown [id number] 2.16.8 40.1.427552.3.579.2.462 Unknown [id number] 2.16.8 40.1.137582.3.579.2.462 Unknown [id number] 2.16.8 40.1.551090.3.579.2.462 Unknown [id number] 2.16.8 40.1.009653.3.579.2.462 Unknown [id number] 2.16.8 40.1.235192.3.579.2.462 Unknown [id number] 2.16.8 40.1.248647.3.579.2.462 Unknown [id number] 2.16.8 40.1.936868.3.579.2.462 Unknown [id number] 2.16.8 40.1.925327.3.579.2.462 Unknown [id number] 2.16.8 40.1.870404.3.579.2.462 Unknown [id number] 2.16.8 40.1.217899.3.579.2.462 Unknown [id number] 2.16.8 40.1.809555.3.579.2.462 Unknown [id number] 2.16.8 40.1.926639.3.579.2.462 Unknown [id number] 2.16.8 40.1.157439.3.579.2.462 Unknown [id number] 2.16.8 40.1.082006.3.579.2.462 Unknown [id number] 2.16.8 40.1.546116.3.579.2.462 Unknown [id number] 2.16.8 40.1.872174.3.579.2.462 Unknown [id number] 2.16.8 40.1.591768.3.579.2.462 Unknown [id number] 2.16.8 40.1.453184.3.579.2.462 Unknown [id number] 2.16.8 40.1.933166.3.579.2.462 Unknown [id number] 2.16.8 40.1.107615.3.579.2.462 Unknown [id number] 2.16.8 40.1.527446.3.579.2.462 Unknown [id number] 2.16.8 40.1.663651.3.579.2.462 Unknown [id number] 2.16.8 40.1.251975.3.579.2.462 Unknown [id number] 2.16.8 40.1.986889.3.579.2.462 Unknown [id number] 2.16.8 40.1.147211.3.579.2.462 Unknown [id number] 2.16.8 40.1.501182.3.579.2.462 Unknown [id number] 2.16.8 40.1.350069.3.579.2.462 Unknown [id number] 2.16.8 40.1.447749.3.579.2.462 Unknown [id number] 2.16.8 40.1.662128.3.579.2.462 Unknown [id number] 2.16.8 40.1.236425.3.579.2.462 Unknown [id number] 2.16.8 40.1.933397.3.579.2.462 Unknown [id number] 2.16.8 40.1.262269.3.579.2.462 Unknown [id number] 2.16.8 40.1.125916.3.579.2.462 Social History Date Type Detail Facility Start: 06-02-2022 End: 01-21-2023 Tobacco smoking status NHIS Unknown if ever smoked [facility] Start: 12-15-2019 Heavy [facility] Start: 12-15-2019 None [facility] Start: 12-15-2019 With Family [facility] Start: 12-15-2019 Cigarettes [facility] Start: 1975 Sex Assigned At Female W [facility] Start: 08-14-2023 End: 11-07-2023 Tobacco smoking status NHIS Smokes tobacco daily [facility] History of tobacco use Cigarette Smoker [facility] Start: 02-26-2020 End: 08-14-2023 Cigarettes smoked current (pack per day) - Reported 0.5 [facility] Start: 08-14-2023 End: 11-07-2023 Tobacco use and exposure Smokeless tobacco non-user [facility] Start: 08-14-2023 End: 05-09-2024 Alcohol intake Current drinker of alcohol (finding) [facility] Start: 02-26-2020 End: 08-14-2023 Tobacco use panel [facility] Adult Depression Screening Assessment 0 [facility] Start: 1975 Sex Assigned At Not on file [facility] Clinical Notes 08-14-2023 to 10-27-2024 Jose Manuel Colunga PA-C - 05/09/2024 1:54 PM ESTPatient InstructionsSheyla Alfonso APRN.TARA - 04/11/2024 10:32 AM Jayda Chisholm APRN.TARA - 11/07/2023 1:07 PM EDTPatient Instructions Note Date & Type Note Facility 10-27-2024 Note HNO ID: [id number] Author: JAYDA PEÑALOZA APRN.[employer] Service: ? Author Type: Nurse Practitioner Type: Progress Notes Filed: 10/27/2024 19:14 Note Text: [facility]TONIO Melvin is a 49 year old female. Patient presents with: Head Congestion: Cough, nasal congestion, fatigue, chills x5 days HPI Cough and Sneezing: - Onset 5 days ago; initially thought to be allergies. - Taking Benadryl with no relief. - Reports facial tenderness, pressure in forehead, and pain in cheeks. - Eyes were swollen and crusted shut this morning. - Denies . - No known allergies to antibiotics. Allergies: - Diagnosed with allergies to all trees and grass via skin prick test. - Describes allergies as worsening each year. - Denies taking regular allergy medications. Review of Systems Constitutional: (+) fatigue, (+) diaphoresis Head: (+) forehead pressure, (+) facial pain Eyes: (+) eyelid swelling, (+) eye crusting Ears/Nose/Mouth/Throat: (+) sneezing Respiratory: (+) cough Neurological: (+) lightheadedness Objective BP 127/82 Pulse 77 Temp 36.6 ?C (97.8 ?F) Resp 18 Wt 118.2 kg (260 lb 9.3 oz) LMP 09/26/2023 (Exact Date) SpO2 100% BMI 41.26 kg/m? Physical Exam General: No acute distress. HEENT: Oropharynx clear; tenderness to palpation over forehead and cheeks. CV: Heart sounds normal. Resp: Breath sounds normal. { 1. Rhinosinusitis (J32.9) - Acute rhinosinusitis with facial tenderness, sinus pressure, and congestion unresponsive to Benadryl over 5 days. - Start doxycycline BID for 7 days. - Advised daily Zyrtec or Claritin to help reduce allergic symptoms. - Provided work note for absence due to illness. 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 Author Type: Physician Kiln Drawer Type: Progress Notes Filed: 05/09/2024 14:07 Note Text: This note was created using NoteWriter. Subjective Miguel Melvin is a 48 year old female. Patient is a 48-year-old female who complains of acute onset of bright red hives with intense itching that developed to her bilateral feet yesterday. Patient states that the remainder of the skin to her BSA is unaffected and clear. Patient denies facial swelling, dysphagia, wheezing, shortness of breath or other symptoms. Patient did take Benadryl last evening and does report some improvement in her symptoms. Patient reports that she did experience a similar episode previously but did not seek medical attention for same. Patient states that her symptoms resolved spontaneously. Patient has multiple environmental allergies to include an allergy to cinnamon that she does work with at her job. Hives Associated symptoms include a rash. Review of Systems Skin: Positive for rash. Hives and Itching to Bilateral Feet All other systems reviewed and are negative. Objective BP 136/82 Pulse 60 Temp 36.1 ?C (97 ?F) (Tympanic) Resp 16 Wt 113.1 kg (249 lb 5.4 oz) LMP 09/26/2023 (Exact Date) SpO2 98% BMI 39.48 kg/m? Physical Exam Vitals and nursing note reviewed. Constitutional: Appearance: Normal appearance. She is normal weight. HENT: Head: Normocephalic and atraumatic. Nose: Nose normal. Mouth/Throat: Mouth: Mucous membranes are moist. Pharynx: Oropharynx is clear. Eyes: Extraocular Movements: Extraocular movements intact. Conjunctiva/sclera: Conjunctivae normal. Pupils: Pupils are equal, round, and reactive to light. Cardiovascular: Rate and Rhythm: Normal rate. Pulses: Normal pulses. Pulmonary: Effort: Pulmonary effort is normal. Breath sounds: Normal breath sounds. Musculoskeletal: Cervical back: Normal range of motion and neck supple. Skin: General: Skin is warm and dry. Capillary Refill: Capillary refill takes less than 2 seconds. Findings: Erythema and rash present. No bruising or lesion. Comments: Mild erythematous urticaria is noted to the skin of the dorsal bilateral feet. There is a mild degree of soft tissue edema noted. MSP to the bilateral feet and toes is fully intact and the patient is bearing weight and ambulating without difficulty. Remainder of exam to the skin of the BSA is unremarkable. Neurological: General: No focal deficit present. Mental Status: She is alert and oriented to person, place, and time. Psychiatric: Mood and Affect: Mood normal. Behavior: Behavior normal. Thought Content: Thought content normal. Judgment: Judgment normal. Assessment and Plan Physical exam findings as noted above. Patient was advised to continue Benadryl or other antihistamine and she was provided with a prescription for prednisone 20 mg. Patient was strongly advised that if she experiences further episodes of similar symptoms she will need to see her primary care physician for further evaluation and management. Patient verbalizes clear understanding the above instructions. CLINICAL IMPRESSION: Urticaria Bilateral Feet--Etiology Unknown ASSESSMENT/PLAN: 1. Urticaria of unknown origin - ICD9: 708.9, ICD10: L50.9 - PREDNISONE 20 MG TABLET Jose Manuel Colunga PA-C [facility] 05-09-2024 History of Presen t illness Narrative This note was created using [email or web address]. Subjective Miguel Melvin is a 48 year old female. Patient is a 48-year-old female who complains of acute onset of bright red hives with intense itching that developed to her bilateral feet yesterday. Patient states that the remainder of the skin to her BSA is unaffected and clear. Patient denies facial swelling, dysphagia, wheezing, shortness of breath or other symptoms. Patient did take Benadryl last evening and does report some improvement in her symptoms. Patient reports that she did experience a similar episode previously but did not seek medical attention for same. Patient states that her symptoms resolved spontaneously. Patient has multiple environmental allergies to include an allergy to cinnamon that she does work with at her job. Hives Associated symptoms include a rash. Review of Systems Skin: Positive for rash. Hives and Itching to Bilateral Feet All other systems reviewed and are negative. Objective BP 136/82 Pulse 60 Temp 36.1 C (97 F) (Tympanic) Resp 16 Wt 113.1 kg (249 lb 5.4 oz) LMP 09/26/2023 (Exact Date) SpO2 98% BMI 39.48 kg/m Physical Exam Vitals and nursing note reviewed. Constitutional: Appearance: Normal appearance. She is normal weight. HENT: Head: Normocephalic and atraumatic. Nose: Nose normal. Mouth/Throat: Mouth: Mucous membranes are moist. Pharynx: Oropharynx is clear. Eyes: Extraocular Movements: Extraocular movements intact. Conjunctiva/sclera: Conjunctivae normal. Pupils: Pupils are equal, round, and reactive to light. Cardiovascular: Rate and Rhythm: Normal rate. Pulses: Normal pulses. Pulmonary: Effort: Pulmonary effort is normal. Breath sounds: Normal breath sounds. Musculoskeletal: Cervical back: Normal range of motion and neck supple. Skin: General: Skin is warm and dry. Capillary Refill: Capillary refill takes less than 2 seconds. Findings: Erythema and rash present. No bruising or lesion. Comments: Mild erythematous urticaria is noted to the skin of the dorsal bilateral feet. There is a mild degree of soft tissue edema noted. MSP to the bilateral feet and toes is fully intact and the patient is bearing weight and ambulating without difficulty. Remainder of exam to the skin of the BSA is unremarkable. Neurological: General: No focal deficit present. Mental Status: She is alert and oriented to person, place, and time. Psychiatric: Mood and Affect: Mood normal. Behavior: Behavior normal. Thought Content: Thought content normal. Judgment: Judgment normal. Assessment and Plan Physical exam findings as noted above. Patient was advised to continue Benadryl or other antihistamine and she was provided with a prescription for prednisone 20 mg. Patient was strongly advised that if she experiences further episodes of similar symptoms she will need to see her primary care physician for further evaluation and management. Patient verbalizes clear understanding the above instructions. CLINICAL IMPRESSION: Urticaria Bilateral Feet--Etiology Unknown ASSESSMENT/PLAN: 1. Urticaria of unknown origin - ICD9: 708.9, ICD10: L50.9 - PREDNISONE 20 MG TABLET Jose Manuel Colunga PA-C documented in this encounter [facility] 04-11-2024 Instructions Sheyla Alfonso APRN.CNP - 04/11/2024 10:35 AM EST ASSESSMENT/PLAN: 1. Conjunctivitis of both eyes, unspecified conjunctivitis type - ICD9: 372.30, ICD10: H10.9 - see medication orders - course and contagiousness issues discussed, including hand washing. - call if high fever, development of periorbital redness or swelling, eye pain, visual changes, concerns or if symptoms persist. - POLYMYXIN B SULFATE 10,000 UNIT-TRIMETHOPRIM 1 MG/ML EYE DROPS - Follow-up with your PCP in 3-5 days if symptoms have not improved or sooner if symptoms worsen - Discussed red flags and need for immediate medical evaluation if any occur. - Discussed supportive care treatment with fluids, rest and analgesia. - Discussed expected course of illness Sheyla Alfonso APRN.[employer] CONJUNCTIVITIS GENERAL INFORMATION: Conjunctivitis is also known as pink eye. It is an irritation of the underside of the eyelid and the white part of the eye. Conjunctivitis can be caused by infection, chemical irritation, or allergy. If infectious, it is very contagious. INSTRUCTIONS: The doctor has prescribed antibiotic drops or ointment. Use them as prescribed. Do not touch the dropper to the eye. Throw out the medication after completing treatment. If the doctor only prescribed the medication to be placed in one eye, and the other eye starts to bother you with the same symptoms, you may treat it in the same fashion. To ease discomfort, apply a warm or cool clean washcloth to your eye several times a day for 10 to 20 minutes. Gently wipe away discharge from the eyes with tissues. Wash your hands often with soap and use paper towels to dry them. Do not share towels, washcloths, or pillows. This could spread infection. Do not use eye make-up until the infection has resolved. Keep contact lenses out of eyes until the irritation is gone. Discard any eye make-up which you may have contaminated before the infection was diagnosed, and any eye make-up older than one year. Children should not return to school or daycare until the eye is no longer pink. Do not drive or operate machinery if your vision is blurred. Wear sunglasses if your eyes are sensitive to the light. CONTACT YOUR DOCTOR IF YOU OR YOUR CHILD NOTICE: *The eye is still pink 3 days after starting treatment with medicine. *Pain in the eye increases. *The redness is spreading. *Vision becomes blurred. *You have a temperature over 100.5 F (38 C). documented in this encounter [facility] 04-11-2024 Note HNO ID: [id number] Author: SHEYLA ALFONSO APRN.[employer] Service: ? Author Type: Nurse Practitioner Type: Progress Notes Filed: 04/11/2024 10:36 Note Text: Subjective Eye Problem Pertinent negatives include no chills, congestion, coughing, fever, myalgias or sore throat. Miguel Melvin is a 48 year old female who presents with redness, drainage and itching both eyes. This started this morning. She states both eyes had matting on eyelashes this morning. No known exposure to pinkeye. No recent URI symptoms. She denies eye pain. She has not used any medication for the symptoms today. Review of Systems Constitutional: Negative for chills and fever. HENT: Negative for congestion, ear pain and sore throat. Eyes: Positive for discharge and redness. Negative for blurred vision, double vision, photophobia and pain. Respiratory: Negative for cough. Cardiovascular: Negative. Musculoskeletal: Negative for myalgias. BP 118/72 Pulse 68 Temp 36.4 ?C (97.6 ?F) Resp 16 Wt 110.8 kg (244 lb 4.3 oz) LMP 09/26/2023 (Exact Date) SpO2 96% BMI 38.68 kg/m? PAST MEDICAL HISTORY Diagnosis Date Anxiety and depression Chronic cough GERD (gastroesophageal reflux disease) History of HPV infection History of seizures as a child last age 18 Obesity (BMI 30-39.9) Pulmonary embolism (HCC) 11/2017 Tobacco use PAST SURGICAL HISTORY Procedure Laterality Date ANESTH, SECTION LIG/TRNSXJ FLP TUBE ABDL/VAG APPR UNI/BI PAST SURGICAL HISTORY OF TUBAL LIGATION HX ALLERGIES Cinnamon and Cymbalta [Duloxetine] MEDICATIONS aspirin, enteric coated (ASPIRIN, ENTERIC COATED) 81 mg EC tablet atorvastatin (LIPITOR) 40 mg tablet carvedilol (COREG) 3.125 mg tablet busPIRone (BUSPAR) 15 mg tablet Take 15 mg by mouth three times a day. clopidogrel (PLAVIX) 75 mg tablet folic acid 1 mg tablet Take 1 tablet by mouth every afternoon. pantoprazole DR (PROTONIX) 40 mg tablet albuterol HFA (PROVENTIL HFA, VENTOLIN HFA) 90 mcg/actuation inhaler Inhale 2 Puffs as instructed every 4 hours as needed for wheezing/shortness of breath. VRAYLAR 3 mg capsule Take 1 capsule by mouth every afternoon. losartan (COZAAR) 25 mg tablet Take 1 tablet by mouth every afternoon. escitalopram oxalate (LEXAPRO) 5 mg tablet Take 5 mg by mouth. hydrOXYzine pamoate (VISTARIL) 50 mg capsule Take 1 capsule by mouth three times daily as needed for Anxiety. iron polysaccharide complex (FERREX 150) 150 mg iron capsule Take 1 capsule by mouth twice daily. polymyxin B-trimethoprim (POLYTRIM) 10,000 unit- 1 mg/mL ophthalmic solution Use 1 Drop in both eyes four times daily for 7 days. benzonatate (TESSALON PERLE) 100 mg capsule Take 2 capsules by mouth three times a day as needed. (Patient not taking: Reported on 04/11/2024) Idgtmlfhazgzluz-Kdmaktezq-JW (BROMFED DM) 2-30-10 mg/5 mL syrup Take 5 mL by mouth four times daily as needed. (Patient not taking: Reported on 04/14/2018) FLUoxetine HCl (PROZAC) 40 mg capsule Take 1 capsule by mouth once daily. (Patient not taking: Reported on 05/07/2018) ELIQUIS 5 mg tab(s) Take 1 tablet by mouth twice daily. (Patient not taking: Reported on 04/01/2018) nicotine (NICODERM) 21 mg/24 hr Apply 1 Patch as directed every 24 hours. For 6 weeks, then wean down (Patient not taking: Reported on 04/14/2018) nicotine (NICODERM) 14 mg/24 hr Apply 1 Patch as directed every 24 hours. No smoking with patch. Step 2 for 2 weeks, then wean down (Patient not taking: Reported on 04/14/2018) nicotine (NICODERM) 7 mg/24 hr Apply 1 Patch as directed every 24 hours. 2 wks, then stop (Patient not taking: Reported on 04/14/2018) FAMILY HISTORY Problem Relation Age of Onset Psychiatry Mother anxiety/depression Stroke Mother TIAs Seizures Mother Psychiatry Father anxiety/depression Cancer Maternal Grandmother cervical Breast Cancer Maternal Grandmother Cancer Paternal Grandmother bladder, liver, kidney Alzheimer's Disease Paternal Grandfather No Known Problems Sister No Known Problems Brother No Known Problems Brother Social History Tobacco Use Smoking status: Every Day Current packs/day: 0.50 Average packs/day: 0.5 packs/day for 5.5 years (2.8 ttl pk-yrs) Types: Cigarettes Smokeless tobacco: Never Substance Use Topics Alcohol use: Yes Comment: occasionally Drug use: No Objective Physical Exam Vitals and nursing note reviewed. Constitutional: General: She is not in acute distress. Appearance: Normal appearance. She is not ill-appearing. HENT: Right Ear: Tympanic membrane, ear canal and external ear normal. Left Ear: Tympanic membrane, ear canal and external ear normal. Mouth/Throat: Pharynx: Uvula midline. Eyes: General: Lids are normal. No allergic shiner. Right eye: No foreign body, discharge or hordeolum. Left eye: No foreign body, discharge or hordeolum. Extraocular Movements: Extraocular movements intact. (more content not included)... [facility] 04-11-2024 History of Presen t illness Narrative Subjective Eye Problem Pertinent negatives include no chills, congestion, coughing, fever, myalgias or sore throat. Miguel Melvin is a 48 year old female who presents with redness, drainage and itching both eyes. This started this morning. She states both eyes had matting on eyelashes this morning. No known exposure to pinkeye. No recent URI symptoms. She denies eye pain. She has not used any medication for the symptoms today. Review of Systems Constitutional: Negative for chills and fever. HENT: Negative for congestion, ear pain and sore throat. Eyes: Positive for discharge and redness. Negative for blurred vision, double vision, photophobia and pain. Respiratory: Negative for cough. Cardiovascular: Negative. Musculoskeletal: Negative for myalgias. BP 118/72 Pulse 68 Temp 36.4 C (97.6 F) Resp 16 Wt 110.8 kg (244 lb 4.3 oz) LMP 09/26/2023 (Exact Date) SpO2 96% BMI 38.68 kg/m PAST MEDICAL HISTORY Diagnosis Date Anxiety and depression Chronic cough GERD (gastroesophageal reflux disease) History of HPV infection History of seizures as a child last age 18 Obesity (BMI 30-39.9) Pulmonary embolism (HCC) 11/2017 Tobacco use PAST SURGICAL HISTORY Procedure Laterality Date ANESTH, SECTION LIG/TRNSXJ FLP TUBE ABDL/VAG APPR UNI/BI PAST SURGICAL HISTORY OF TUBAL LIGATION HX ALLERGIES Cinnamon and Cymbalta [Duloxetine] MEDICATIONS aspirin, enteric coated (ASPIRIN, ENTERIC COATED) 81 mg EC tablet atorvastatin (LIPITOR) 40 mg tablet carvedilol (COREG) 3.125 mg tablet busPIRone (BUSPAR) 15 mg tablet Take 15 mg by mouth three times a day. clopidogrel (PLAVIX) 75 mg tablet folic acid 1 mg tablet Take 1 tablet by mouth every afternoon. pantoprazole DR (PROTONIX) 40 mg tablet albuterol HFA (PROVENTIL HFA, VENTOLIN HFA) 90 mcg/actuation inhaler Inhale 2 Puffs as instructed every 4 hours as needed for wheezing/shortness of breath. VRAYLAR 3 mg capsule Take 1 capsule by mouth every afternoon. losartan (COZAAR) 25 mg tablet Take 1 tablet by mouth every afternoon. escitalopram oxalate (LEXAPRO) 5 mg tablet Take 5 mg by mouth. hydrOXYzine pamoate (VISTARIL) 50 mg capsule Take 1 capsule by mouth three times daily as needed for Anxiety. iron polysaccharide complex (FERREX 150) 150 mg iron capsule Take 1 capsule by mouth twice daily. polymyxin B-trimethoprim (POLYTRIM) 10,000 unit- 1 mg/mL ophthalmic solution Use 1 Drop in both eyes four times daily for 7 days. benzonatate (TESSALON PERLE) 100 mg capsule Take 2 capsules by mouth three times a day as needed. (Patient not taking: Reported on 04/11/2024) Xepepilegeyguhg-Qmhqggkkw-IP (BROMFED DM) 2-30-10 mg/5 mL syrup Take 5 mL by mouth four times daily as needed. (Patient not taking: Reported on 04/14/2018) FLUoxetine HCl (PROZAC) 40 mg capsule Take 1 capsule by mouth once daily. (Patient not taking: Reported on 05/07/2018) ELIQUIS 5 mg tab(s) Take 1 tablet by mouth twice daily. (Patient not taking: Reported on 04/01/2018) nicotine (NICODERM) 21 mg/24 hr Apply 1 Patch as directed every 24 hours. For 6 weeks, then wean down (Patient not taking: Reported on 04/14/2018) nicotine (NICODERM) 14 mg/24 hr Apply 1 Patch as directed every 24 hours. No smoking with patch. Step 2 for 2 weeks, then wean down (Patient not taking: Reported on 04/14/2018) nicotine (NICODERM) 7 mg/24 hr Apply 1 Patch as directed every 24 hours. 2 wks, then stop (Patient not taking: Reported on 04/14/2018) FAMILY HISTORY Problem Relation Age of Onset Psychiatry Mother anxiety/depression Stroke Mother TIAs Seizures Mother Psychiatry Father anxiety/depression Cancer Maternal Grandmother cervical Breast Cancer Maternal Grandmother Cancer Paternal Grandmother bladder, liver, kidney Alzheimer's Disease Paternal Grandfather No Known Problems Sister No Known Problems Brother No Known Problems Brother Social History Tobacco Use Smoking status: Every Day Current packs/day: 0.50 Average packs/day: 0.5 packs/day for 5.5 years (2.8 ttl pk-yrs) Types: Cigarettes Smokeless tobacco: Never Substance Use Topics Alcohol use: Yes Comment: occasionally Drug use: No Objective Physical Exam Vitals and nursing note reviewed. Constitutional: General: She is not in acute distress. Appearance: Normal appearance. She is not ill-appearing. HENT: Right Ear: Tympanic membrane, ear canal and external ear normal. Left Ear: Tympanic membrane, ear canal and external ear normal. Mouth/Throat: Pharynx: Uvula midline. Eyes: General: Lids are normal. No allergic shiner. Right eye: No foreign body, discharge or hordeolum. Left eye: No foreign body, discharge or hordeolum. Extraocular Movements: Extraocular movements intact. Conjunctiva/sclera: Right eye: Right conjunctiva is injected. No chemosis, exudate or hemorrhage. Left eye: Left conjunctiva is injected. No chemosis, exudate or hemorrhage. Comments: Visual acuity: OD 20/25 OS 20/25 OU 20/25 Cardiovascular: Rate and Rhythm: Normal rate and regular rhythm. Heart sounds: Normal heart sounds. Pulmonary: Effort: Pulmonary effort is normal. No respiratory distress. Breath sounds: Normal breath sounds. No wheezing or rales. Musculoskeletal: Cervical back: Neck supple. Lymphadenopathy: Cervical: No cervical adenopathy. Skin: General: Skin is warm and dry. Findings: No erythema or rash. Neurological: Mental Status: She is alert. ASSESSMENT/PLAN: 1. Conjunctivitis of both eyes, unspecified conjunctivitis type - ICD9: 372.30, ICD10: H10.9 - see medication orders - course and contagiousness issues discussed, including hand washing. - call if high fever, development of periorbital redness or swelling, eye pain, visual changes, concerns or if symptoms persist. - POLYMYXIN B SULFATE 10,000 UNIT-TRIMETHOPRIM 1 MG/ML EYE DROPS - Follow-up with your PCP in 3-5 days if symptoms have not improved or sooner if symptoms worsen - Discussed red flags and need for immediate medical evaluation if any occur. - Discussed supportive care treatment with fluids, rest and analgesia. - Discussed expected course of illness Sheyla Alfonso APRN.[employer] documented in this encounter [facility] 11-07-2023 Note HNO ID: [id number] Author: JAYDA PEÑALOZA APRN.TARA Service: ? Author Type: Nurse Practitioner Type: Progress Notes Filed: 11/07/2023 13:09 Note Text: CC: Patient presents with: Throat Problem: Laryngitis Was recently on doxycycline. Patient says she is not feeling much better. HPI: Miguel Melvin is a 48 year old female who presents to the office with complaint of chest congestion, head congestion, and cough, nonproductive for a week. Symptoms are staying the same. Associated symptoms includes hoarse voice. Denies fever, ear pain, nausea, vomiting , and diarrhea. Treatments tried include nothing so far. with no relief of symptoms. Sick contacts: unknown. History of asthma, frequent episodes of bronchitis, chronic bronchitis, bronchiectasis or COPD: No Smoker: No Seasonal/environmental allergies: No The ROS is otherwise negative. The patient's pmh, medications, allergies, and past visits are reviewed. PHYSICAL EXAM: BP 132/61 Pulse 69 Temp 36.6 ?C (97.8 ?F) Resp 18 Wt 115.2 kg (253 lb 15.5 oz) LMP 09/26/2023 (Exact Date) SpO2 98% BMI 40.22 kg/m? General appearance: alert, cooperative, pleasant, in no acute distress Head: Normocephalic Eyes: EOM's intact, conjunctiva pink and moist, no icterus, sclera white, non-injected Ears: Right ear: External ear/canal- Normal, TM - clear with good landmarks. Left ear: External ear/canal- Normal, TM - clear with good landmarks Oropharynx:moist without lesions, No erythema, exudates or tonsillar hypertrophy. Heart: Negative. RRR without obvious murmur, gallop, or rubs. No ectopy. Lungs: clear to auscultation, without rales or wheeze, good air exchange PAST MEDICAL HISTORY No date: Anxiety and depression No date: Chronic cough No date: GERD (gastroesophageal reflux disease) No date: History of HPV infection No date: History of seizures as a child Comment: last age 18 No date: Obesity (BMI 30-39.9) 11/2017: Pulmonary embolism (HCC) No date: Tobacco use PAST SURGICAL HISTORY No date: ANESTH, SECTION No date: LIG/TRNSXJ FLP TUBE ABDL/VAG APPR UNI/BI No date: PAST SURGICAL HISTORY OF Comment: No date: TUBAL LIGATION HX ALLERGIES Cinnamon and Cymbalta [Duloxetine] MEDICATIONS amoxicillin-clavulanate potassium (AUGMENTIN) 875-125 mg per tablet Take 1 tablet by mouth two times a day for 7 days. predniSONE (DELTASONE) 10 mg tablet Take 4 tabs daily for 3 days, then 2 tabs daily for 3 days, then 1 tab daily for 3 days with food. albuterol HFA (PROVENTIL HFA, VENTOLIN HFA) 90 mcg/actuation inhaler Inhale 2 Puffs as instructed every 4 hours as needed for wheezing/shortness of breath. VRAYLAR 3 mg capsule Take 1 capsule by mouth every afternoon. hydrOXYzine HCl (ATARAX) 25 mg tablet take 1 tablet by mouth twice a day for anxiety losartan (COZAAR) 25 mg tablet Take 1 tablet by mouth every afternoon. benzonatate (TESSALON PERLE) 100 mg capsule Take 2 capsules by mouth three times a day as needed. escitalopram oxalate (LEXAPRO) 5 mg tablet Take 5 mg by mouth. Omeprazole 40 mg capsule Take 1 capsule by mouth once daily. hydrOXYzine pamoate (VISTARIL) 50 mg capsule Take 1 capsule by mouth three times daily as needed for Anxiety. iron polysaccharide complex (FERREX 150) 150 mg iron capsule Take 1 capsule by mouth twice daily. Xpnqiycvwtaqgmn-Fkmhcvduo-FD (BROMFED DM) 2-30-10 mg/5 mL syrup Take 5 mL by mouth four times daily as needed. (Patient not taking: Reported on 04/14/2018) FLUoxetine HCl (PROZAC) 40 mg capsule Take 1 capsule by mouth once daily. (Patient not taking: Reported on 05/07/2018) ELIQUIS 5 mg tab(s) Take 1 tablet by mouth twice daily. (Patient not taking: Reported on 04/01/2018) nicotine (NICODERM) 21 mg/24 hr Apply 1 Patch as directed every 24 hours. For 6 weeks, then wean down (Patient not taking: Reported on 04/14/2018) nicotine (NICODERM) 14 mg/24 hr Apply 1 Patch as directed every 24 hours. No smoking with patch. Step 2 for 2 weeks, then wean down (Patient not taking: Reported on 04/14/2018) nicotine (NICODERM) 7 mg/24 hr Apply 1 Patch as directed every 24 hours. 2 wks, then stop (Patient not taking: Reported on 04/14/2018) famotidine (PEPCID) 20 mg tablet Take 1 tablet by mouth at bedtime as needed. (Patient not taking: Reported on 05/07/2018) FAMILY HISTORY Problem Relation Age of Onset Psychiatry Mother anxiety/depression Stroke Mother TIAs Seizures Mother Psychiatry Father anxiety/depression Cancer Maternal Grandmother cervical Breast Cancer Maternal Grandmother Cancer Paternal Grandmother bladder, liver, kidney Alzheimer's Disease Paternal Grandfather No Known Problems Sister No Known Problems Brother No Known Problems Brother Social History Tobacco Use Smoking status: Every Day Current packs/day: 0.50 Average packs/day: 0.5 packs/day for 5.5 years (2.8 ttl pk-yrs) Types: Cigarettes Smokeless tobacco: Never [place] (more content not included)... [facility] 11-07-2023 History of Presen t illness Narrative CC: Patient presents with: Throat Problem: Laryngitis Was recently on doxycycline. Patient says she is not feeling much better. HPI: Miguel Melvin is a 48 year old female who presents to the office with complaint of chest congestion, head congestion, and cough, nonproductive for a week. Symptoms are staying the same. Associated symptoms includes hoarse voice. Denies fever, ear pain, nausea, vomiting , and diarrhea. Treatments tried include nothing so far. with no relief of symptoms. Sick contacts: unknown. History of asthma, frequent episodes of bronchitis, chronic bronchitis, bronchiectasis or COPD: No Smoker: No Seasonal/environmental allergies: No The ROS is otherwise negative. The patient's pmh, medications, allergies, and past visits are reviewed. PHYSICAL EXAM: BP 132/61 Pulse 69 Temp 36.6 C (97.8 F) Resp 18 Wt 115.2 kg (253 lb 15.5 oz) LMP 09/26/2023 (Exact Date) SpO2 98% BMI 40.22 kg/m General appearance: alert, cooperative, pleasant, in no acute distress Head: Normocephalic Eyes: EOM's intact, conjunctiva pink and moist, no icterus, sclera white, non-injected Ears: Right ear: External ear/canal- Normal, TM - clear with good landmarks. Left ear: External ear/canal- Normal, TM - clear with good landmarks Oropharynx:moist without lesions, No erythema, exudates or tonsillar hypertrophy. Heart: Negative. RRR without obvious murmur, gallop, or rubs. No ectopy. Lungs: clear to auscultation, without rales or wheeze, good air exchange PAST MEDICAL HISTORY No date: Anxiety and depression No date: Chronic cough No date: GERD (gastroesophageal reflux disease) No date: History of HPV infection No date: History of seizures as a child Comment: last age 18 No date: Obesity (BMI 30-39.9) 11/2017: Pulmonary embolism (HCC) No date: Tobacco use PAST SURGICAL HISTORY No date: ANESTH, SECTION No date: LIG/TRNSXJ FLP TUBE ABDL/VAG APPR UNI/BI No date: PAST SURGICAL HISTORY OF Comment: No date: TUBAL LIGATION HX ALLERGIES Cinnamon and Cymbalta [Duloxetine] MEDICATIONS amoxicillin-clavulanate potassium (AUGMENTIN) 875-125 mg per tablet Take 1 tablet by mouth two times a day for 7 days. predniSONE (DELTASONE) 10 mg tablet Take 4 tabs daily for 3 days, then 2 tabs daily for 3 days, then 1 tab daily for 3 days with food. albuterol HFA (PROVENTIL HFA, VENTOLIN HFA) 90 mcg/actuation inhaler Inhale 2 Puffs as instructed every 4 hours as needed for wheezing/shortness of breath. VRAYLAR 3 mg capsule Take 1 capsule by mouth every afternoon. hydrOXYzine HCl (ATARAX) 25 mg tablet take 1 tablet by mouth twice a day for anxiety losartan (COZAAR) 25 mg tablet Take 1 tablet by mouth every afternoon. benzonatate (TESSALON PERLE) 100 mg capsule Take 2 capsules by mouth three times a day as needed. escitalopram oxalate (LEXAPRO) 5 mg tablet Take 5 mg by mouth. Omeprazole 40 mg capsule Take 1 capsule by mouth once daily. hydrOXYzine pamoate (VISTARIL) 50 mg capsule Take 1 capsule by mouth three times daily as needed for Anxiety. iron polysaccharide complex (FERREX 150) 150 mg iron capsule Take 1 capsule by mouth twice daily. Wzrgsufyfyxvjhi-Nivbrvorl-QL (BROMFED DM) 2-30-10 mg/5 mL syrup Take 5 mL by mouth four times daily as needed. (Patient not taking: Reported on 04/14/2018) FLUoxetine HCl (PROZAC) 40 mg capsule Take 1 capsule by mouth once daily. (Patient not taking: Reported on 05/07/2018) ELIQUIS 5 mg tab(s) Take 1 tablet by mouth twice daily. (Patient not taking: Reported on 04/01/2018) nicotine (NICODERM) 21 mg/24 hr Apply 1 Patch as directed every 24 hours. For 6 weeks, then wean down (Patient not taking: Reported on 04/14/2018) nicotine (NICODERM) 14 mg/24 hr Apply 1 Patch as directed every 24 hours. No smoking with patch. Step 2 for 2 weeks, then wean down (Patient not taking: Reported on 04/14/2018) nicotine (NICODERM) 7 mg/24 hr Apply 1 Patch as directed every 24 hours. 2 wks, then stop (Patient not taking: Reported on 04/14/2018) famotidine (PEPCID) 20 mg tablet Take 1 tablet by mouth at bedtime as needed. (Patient not taking: Reported on 05/07/2018) FAMILY HISTORY Problem Relation Age of Onset Psychiatry Mother anxiety/depression Stroke Mother TIAs Seizures Mother Psychiatry Father anxiety/depression Cancer Maternal Grandmother cervical Breast Cancer Maternal Grandmother Cancer Paternal Grandmother bladder, liver, kidney Alzheimer's Disease Paternal Grandfather No Known Problems Sister No Known Problems Brother No Known Problems Brother Social History Tobacco Use Smoking status: Every Day Current packs/day: 0.50 Average packs/day: 0.5 packs/day for 5.5 years (2.8 ttl pk-yrs) Types: Cigarettes Smokeless tobacco: Never Substance Use Topics Alcohol use: Yes Comment: occasionally Drug use: No ASSESSMENT/PLAN: 1. Acute cough - ICD9: 786.2, ICD10: R05.1 (primary diagnosis) 2. Respiratory infection - ICD9: 519.8, ICD10: J98.8 - AMOXICILLIN 875 MG-POTASSIUM CLAVULANATE 125 MG TABLET Attempting a different antibiotic to see if this helps patient symptoms improved. X-ray is gone for the day. No more steroids given due to patient recently having a 9-day course. Prescription instructions reviewed with patient as applicable. Potential red flag symptoms discussed with the patient. Reviewed appropriate action plan to take if red flag symptoms occur. Patient agreeable to treatment plan. Jayda Peñaloza APRN.[employer] documented in this encounter [facility] 11-02-2023 Note HNO ID: [id number] Author: SHEYLA ALFONSO APRN.TARA Service: ? Author Type: Nurse Practitioner Type: Progress Notes Filed: 11/02/2023 13:31 Note Text: Subjective Cough Associated symptoms include ear pain, shortness of breath and wheezing. Pertinent negatives include no chest pain, no chills, no sore throat and no myalgias. Miguel Melvin is a 48 year old female who presents with cough, chest congestion and shortness of breath for the past 8 days. She was seen here on 10/26 had COVID test and xray which were normal. Prescribed tessalon perles. Seen again on 10/28 given doxycycline for lower resp tract infection. She has taken most of the doxycyline and cough is persisting. Worse at night and she has trouble sleeping. Has intermittent sharp pains in bilateral ears. Still having nasal congestion. Review of Systems Constitutional: Negative for chills, fever and malaise/fatigue. HENT: Positive for congestion, ear pain and hearing loss. Negative for sore throat. Respiratory: Positive for cough, shortness of breath and wheezing. Negative for sputum production. Cardiovascular: Negative for chest pain and palpitations. Musculoskeletal: Negative for myalgias. BP 118/74 Pulse 97 Temp 36.3 ?C (97.3 ?F) (Tympanic) Resp 18 Wt 113.8 kg (250 lb 14.1 oz) LMP 09/26/2023 (Exact Date) SpO2 98% BMI 39.73 kg/m? PAST MEDICAL HISTORY No date: Anxiety and depression No date: Chronic cough No date: GERD (gastroesophageal reflux disease) No date: History of HPV infection No date: History of seizures as a child Comment: last age 18 No date: Obesity (BMI 30-39.9) 11/2017: Pulmonary embolism (HCC) No date: Tobacco use PAST SURGICAL HISTORY No date: ANESTH, SECTION No date: LIG/TRNSXJ FLP TUBE ABDL/VAG APPR UNI/BI No date: PAST SURGICAL HISTORY OF Comment: No date: TUBAL LIGATION HX ALLERGIES Cinnamon and Cymbalta [Duloxetine] MEDICATIONS doxycycline (VIBRA-TABS) 100 mg tablet Take 1 tablet by mouth two times a day for 5 days. VRAYLAR 3 mg capsule Take 1 capsule by mouth every afternoon. hydrOXYzine HCl (ATARAX) 25 mg tablet take 1 tablet by mouth twice a day for anxiety losartan (COZAAR) 25 mg tablet Take 1 tablet by mouth every afternoon. benzonatate (TESSALON PERLE) 100 mg capsule Take 2 capsules by mouth three times a day as needed. escitalopram oxalate (LEXAPRO) 5 mg tablet Take 5 mg by mouth. Omeprazole 40 mg capsule Take 1 capsule by mouth once daily. hydrOXYzine pamoate (VISTARIL) 50 mg capsule Take 1 capsule by mouth three times daily as needed for Anxiety. iron polysaccharide complex (FERREX 150) 150 mg iron capsule Take 1 capsule by mouth twice daily. predniSONE (DELTASONE) 10 mg tablet Take 4 tabs daily for 3 days, then 2 tabs daily for 3 days, then 1 tab daily for 3 days with food. albuterol HFA (PROVENTIL HFA, VENTOLIN HFA) 90 mcg/actuation inhaler Inhale 2 Puffs as instructed every 4 hours as needed for wheezing/shortness of breath. Inhalational Spacing Device 1 Device one time only for 1 dose. Amudctobitvndvl-Yjakoolea-OR (BROMFED DM) 2-30-10 mg/5 mL syrup Take 5 mL by mouth four times daily as needed. (Patient not taking: Reported on 04/14/2018) FLUoxetine HCl (PROZAC) 40 mg capsule Take 1 capsule by mouth once daily. (Patient not taking: Reported on 05/07/2018) ELIQUIS 5 mg tab(s) Take 1 tablet by mouth twice daily. (Patient not taking: Reported on 04/01/2018) nicotine (NICODERM) 21 mg/24 hr Apply 1 Patch as directed every 24 hours. For 6 weeks, then wean down (Patient not taking: Reported on 04/14/2018) nicotine (NICODERM) 14 mg/24 hr Apply 1 Patch as directed every 24 hours. No smoking with patch. Step 2 for 2 weeks, then wean down (Patient not taking: Reported on 04/14/2018) nicotine (NICODERM) 7 mg/24 hr Apply 1 Patch as directed every 24 hours. 2 wks, then stop (Patient not taking: Reported on 04/14/2018) famotidine (PEPCID) 20 mg tablet Take 1 tablet by mouth at bedtime as needed. (Patient not taking: Reported on 05/07/2018) FAMILY HISTORY Problem Relation Age of Onset Psychiatry Mother anxiety/depression Stroke Mother TIAs Seizures Mother Psychiatry Father anxiety/depression Cancer Maternal Grandmother cervical Breast Cancer Maternal Grandmother Cancer Paternal Grandmother bladder, liver, kidney Alzheimer's Disease Paternal Grandfather No Known Problems Sister No Known Problems Brother No Known Problems Brother Social History Tobacco Use Smoking status: Every Day Packs/day: 0.50 Years: 5.50 Additional pack years: 0.00 Total pack years: 2.75 Types: Cigarettes Smokeless tobacco: Never Substance Use Topics Alcohol use: Yes Comment: occasionally Drug use: No Objective Physical Exam Vitals and nursing note reviewed. Constitutional: General: She is not in acute distress. Appearance: Normal appearance. She is not ill-appearing. HENT: Right Ear: Tym (more content not included)... [facility] 11-02-2023 History of Presen t illness Narrative Subjective Cough Associated symptoms include ear pain, shortness of breath and wheezing. Pertinent negatives include no chest pain, no chills, no sore throat and no myalgias. Miguel Melvin is a 48 year old female who presents with cough, chest congestion and shortness of breath for the past 8 days. She was seen here on 10/26 had COVID test and xray which were normal. Prescribed tessalon perles. Seen again on 10/28 given doxycycline for lower resp tract infection. She has taken most of the doxycyline and cough is persisting. Worse at night and she has trouble sleeping. Has intermittent sharp pains in bilateral ears. Still having nasal congestion. Review of Systems Constitutional: Negative for chills, fever and malaise/fatigue. HENT: Positive for congestion, ear pain and hearing loss. Negative for sore throat. Respiratory: Positive for cough, shortness of breath and wheezing. Negative for sputum production. Cardiovascular: Negative for chest pain and palpitations. Musculoskeletal: Negative for myalgias. BP 118/74 Pulse 97 Temp 36.3 C (97.3 F) (Tympanic) Resp 18 Wt 113.8 kg (250 lb 14.1 oz) LMP 09/26/2023 (Exact Date) SpO2 98% BMI 39.73 kg/m PAST MEDICAL HISTORY No date: Anxiety and depression No date: Chronic cough No date: GERD (gastroesophageal reflux disease) No date: History of HPV infection No date: History of seizures as a child Comment: last age 18 No date: Obesity (BMI 30-39.9) 11/2017: Pulmonary embolism (HCC) No date: Tobacco use PAST SURGICAL HISTORY No date: ANESTH, SECTION No date: LIG/TRNSXJ FLP TUBE ABDL/VAG APPR UNI/BI No date: PAST SURGICAL HISTORY OF Comment: No date: TUBAL LIGATION HX ALLERGIES Cinnamon and Cymbalta [Duloxetine] MEDICATIONS doxycycline (VIBRA-TABS) 100 mg tablet Take 1 tablet by mouth two times a day for 5 days. VRAYLAR 3 mg capsule Take 1 capsule by mouth every afternoon. hydrOXYzine HCl (ATARAX) 25 mg tablet take 1 tablet by mouth twice a day for anxiety losartan (COZAAR) 25 mg tablet Take 1 tablet by mouth every afternoon. benzonatate (TESSALON PERLE) 100 mg capsule Take 2 capsules by mouth three times a day as needed. escitalopram oxalate (LEXAPRO) 5 mg tablet Take 5 mg by mouth. Omeprazole 40 mg capsule Take 1 capsule by mouth once daily. hydrOXYzine pamoate (VISTARIL) 50 mg capsule Take 1 capsule by mouth three times daily as needed for Anxiety. iron polysaccharide complex (FERREX 150) 150 mg iron capsule Take 1 capsule by mouth twice daily. predniSONE (DELTASONE) 10 mg tablet Take 4 tabs daily for 3 days, then 2 tabs daily for 3 days, then 1 tab daily for 3 days with food. albuterol HFA (PROVENTIL HFA, VENTOLIN HFA) 90 mcg/actuation inhaler Inhale 2 Puffs as instructed every 4 hours as needed for wheezing/shortness of breath. Inhalational Spacing Device 1 Device one time only for 1 dose. Lxioukjziyzpisp-Tfylwpunu-QL (BROMFED DM) 2-30-10 mg/5 mL syrup Take 5 mL by mouth four times daily as needed. (Patient not taking: Reported on 04/14/2018) FLUoxetine HCl (PROZAC) 40 mg capsule Take 1 capsule by mouth once daily. (Patient not taking: Reported on 05/07/2018) ELIQUIS 5 mg tab(s) Take 1 tablet by mouth twice daily. (Patient not taking: Reported on 04/01/2018) nicotine (NICODERM) 21 mg/24 hr Apply 1 Patch as directed every 24 hours. For 6 weeks, then wean down (Patient not taking: Reported on 04/14/2018) nicotine (NICODERM) 14 mg/24 hr Apply 1 Patch as directed every 24 hours. No smoking with patch. Step 2 for 2 weeks, then wean down (Patient not taking: Reported on 04/14/2018) nicotine (NICODERM) 7 mg/24 hr Apply 1 Patch as directed every 24 hours. 2 wks, then stop (Patient not taking: Reported on 04/14/2018) famotidine (PEPCID) 20 mg tablet Take 1 tablet by mouth at bedtime as needed. (Patient not taking: Reported on 05/07/2018) FAMILY HISTORY Problem Relation Age of Onset Psychiatry Mother anxiety/depression Stroke Mother TIAs Seizures Mother Psychiatry Father anxiety/depression Cancer Maternal Grandmother cervical Breast Cancer Maternal Grandmother Cancer Paternal Grandmother bladder, liver, kidney Alzheimer's Disease Paternal Grandfather No Known Problems Sister No Known Problems Brother No Known Problems Brother Social History Tobacco Use Smoking status: Every Day Packs/day: 0.50 Years: 5.50 Additional pack years: 0.00 Total pack years: 2.75 Types: Cigarettes Smokeless tobacco: Never Substance Use Topics Alcohol use: Yes Comment: occasionally Drug use: No Objective Physical Exam Vitals and nursing note reviewed. Constitutional: General: She is not in acute distress. Appearance: Normal appearance. She is not ill-appearing. HENT: Right Ear: Tympanic membrane, ear canal and external ear normal. Left Ear: Tympanic membrane, ear canal and external ear normal. Nose: Nose normal. Mouth/Throat: Mouth: Mucous membranes are moist. Pharynx: Oropharynx is clear. Uvula midline. No oropharyngeal exudate or posterior oropharyngeal erythema. Cardiovascular: Rate and Rhythm: Normal rate and regular rhythm. Heart sounds: Normal heart sounds. Pulmonary: Effort: Pulmonary effort is normal. No respiratory distress. Breath sounds: Wheezing present. No rales. Musculoskeletal: Cervical back: Neck supple. Lymphadenopathy: Cervical: No cervical adenopathy. Skin: General: Skin is warm and dry. Findings: No erythema or rash. Neurological: Mental Status: She is alert. ASSESSMENT/PLAN: 1. Viral bronchitis - ICD9: 466.0, ICD10: J20.8 - PREDNISONE 10 MG TABLET - ALBUTEROL SULFATE HFA 90 MCG/ACTUATION AEROSOL INHALER 2. Otalgia of both ears - ICD9: 388.70, ICD10: H92.03 - ear exam is normal today. - Follow-up with your PCP in 3-5 days if symptoms have not improved or sooner if symptoms worsen - Discussed red flags and need for immediate medical evaluation if any occur. - Discussed supportive care treatment with fluids, rest and analgesia. - Discussed expected course of illness Sheyla Alfonso APRN.[employer] documented in this encounter [facility] 11-02-2023 Instructions Sheyla Aflonso APRN.[employer] - 11/02/2023 1:25 PM EDT ASSESSMENT/PLAN: 1. Viral bronchitis - ICD9: 466.0, ICD10: J20.8 - PREDNISONE 10 MG TABLET - ALBUTEROL SULFATE HFA 90 MCG/ACTUATION AEROSOL INHALER 2. Otalgia of both ears - ICD9: 388.70, ICD10: H92.03 - ear exam is normal today. - Follow-up with your PCP in 3-5 days if symptoms have not improved or sooner if symptoms worsen - Discussed red flags and need for immediate medical evaluation if any occur. - Discussed supportive care treatment with fluids, rest and analgesia. - Discussed expected course of illness Sheyla Alfonso APRN.[employer] ACUTE BRONCHITIS: You have acute bronchitis. This means the airway passages in your lungs are inflamed. Bronchitis may be caused by viruses or bacteria. Inhaling cigarette smoke will always make it worse. Exposure to irritating chemicals or second hand smoke as well as allergies can contribute to bronchitis. Repeat episodes of bronchitis may cause lifelong lung problems. Acute bronchitis is usually treated with rest, fluids, cough medicine, and possibly antibiotics or inhaled medicine to open up the small airways. It is very important that you avoid smoke and drink increased amounts of fluids. A cool air vaporizer can help thin bronchial secretions. This makes it easier to cough and clear your chest. If you are a cigarette smoker, consider using nicotine gum or skin patches to help you withdraw. Recovery from bronchitis is often slow, but you should start feeling better after 2-3 days of treatment. Please call your doctor or return here if you have any of the following symptoms: Increased fever, chills, or chest pain. Severe shortness of breath or bloody sputum. Do not improve after 3 days of proper treatment. documented in this encounter [facility] 10-29-2023 History of Presen t illness Narrative Subjective HPI Nontoxic-appearing female presents urgent care chief complaint cough chest congestion shortness of breath with coughing only fever body aches chills fatigue. Duration of symptoms 4 days total associated symptoms listed above. This is day 2 of fever. Was seen here initially. Negative COVID chest x-ray. Prescribed Tessalon Perles. States cough is became productive. Yellow phlegm. No blood. Cough is most bothersome symptom. Denies any chest pain hemoptysis pleuritic pain shortness of breath only with coughing nausea vomiting abdominal pain rashes change in bowel or bladder habits. Past medical history prescription medications allergies reviewed. .Patient presents with: Cough: Chest congestion, yellow phlegm, SOB, wheeze, fatigue, body aches, fever x 2 days PAST MEDICAL HISTORY No date: Anxiety and depression No date: Chronic cough No date: GERD (gastroesophageal reflux disease) No date: History of HPV infection No date: History of seizures as a child Comment: last age 18 No date: Obesity (BMI 30-39.9) 11/2017: Pulmonary embolism (HCC) No date: Tobacco use PAST SURGICAL HISTORY No date: ANESTH, SECTION No date: LIG/TRNSXJ FLP TUBE ABDL/VAG APPR UNI/BI No date: PAST SURGICAL HISTORY OF Comment: No date: TUBAL LIGATION HX ALLERGIES Cinnamon and Cymbalta [Duloxetine] MEDICATIONS VRAYLAR 3 mg capsule Take 1 capsule by mouth every afternoon. hydrOXYzine HCl (ATARAX) 25 mg tablet take 1 tablet by mouth twice a day for anxiety losartan (COZAAR) 25 mg tablet Take 1 tablet by mouth every afternoon. benzonatate (TESSALON PERLE) 100 mg capsule Take 2 capsules by mouth three times a day as needed. escitalopram oxalate (LEXAPRO) 5 mg tablet Take 5 mg by mouth. Omeprazole 40 mg capsule Take 1 capsule by mouth once daily. hydrOXYzine pamoate (VISTARIL) 50 mg capsule Take 1 capsule by mouth three times daily as needed for Anxiety. iron polysaccharide complex (FERREX 150) 150 mg iron capsule Take 1 capsule by mouth twice daily. Iidkyurgmrjztxb-Wgjpurihl-MY (BROMFED DM) 2-30-10 mg/5 mL syrup Take 5 mL by mouth four times daily as needed. (Patient not taking: Reported on 04/14/2018) FLUoxetine HCl (PROZAC) 40 mg capsule Take 1 capsule by mouth once daily. (Patient not taking: Reported on 05/07/2018) ELIQUIS 5 mg tab(s) Take 1 tablet by mouth twice daily. (Patient not taking: Reported on 04/01/2018) nicotine (NICODERM) 21 mg/24 hr Apply 1 Patch as directed every 24 hours. For 6 weeks, then wean down (Patient not taking: Reported on 04/14/2018) nicotine (NICODERM) 14 mg/24 hr Apply 1 Patch as directed every 24 hours. No smoking with patch. Step 2 for 2 weeks, then wean down (Patient not taking: Reported on 04/14/2018) nicotine (NICODERM) 7 mg/24 hr Apply 1 Patch as directed every 24 hours. 2 wks, then stop (Patient not taking: Reported on 04/14/2018) famotidine (PEPCID) 20 mg tablet Take 1 tablet by mouth at bedtime as needed. (Patient not taking: Reported on 05/07/2018) FAMILY HISTORY Problem Relation Age of Onset Psychiatry Mother anxiety/depression Stroke Mother TIAs Seizures Mother Psychiatry Father anxiety/depression Cancer Maternal Grandmother cervical Breast Cancer Maternal Grandmother Cancer Paternal Grandmother bladder, liver, kidney Alzheimer's Disease Paternal Grandfather No Known Problems Sister No Known Problems Brother No Known Problems Brother Social History Tobacco Use Smoking status: Every Day Packs/day: 0.50 Years: 5.50 Additional pack years: 0.00 Total pack years: 2.75 Types: Cigarettes Smokeless tobacco: Never Substance Use Topics Alcohol use: Yes Comment: occasionally Drug use: No BP 112/80 Pulse 91 Temp (!) 38.1 C (100.5 F) Resp 24 Wt 113 kg (249 lb 1.9 oz) LMP 09/26/2023 (Exact Date) SpO2 96% BMI 39.45 kg/m ROS Objective Physical Exam Constitutional: General: She is not in acute distress. Appearance: She is not diaphoretic. HENT: Head: Normocephalic. Jaw: No trismus, tenderness, swelling or pain on movement. Nose: Congestion present. Mouth/Throat: Mouth: Mucous membranes are moist. Pharynx: Oropharynx is clear. Uvula midline. No pharyngeal swelling, oropharyngeal exudate, posterior oropharyngeal erythema or uvula swelling. Eyes: Conjunctiva/sclera: Conjunctivae normal. Pupils: Pupils are equal, round, and reactive to light. Cardiovascular: Rate and Rhythm: Normal rate and regular rhythm. Heart sounds: Normal heart sounds. Pulmonary: Effort: Pulmonary effort is normal. No tachypnea, accessory muscle usage or respiratory distress. Breath sounds: No stridor. Rhonchi present. No wheezing or rales. Abdominal: General: There is no distension. Palpations: Abdomen is soft. Tenderness: There is no abdominal tenderness. There is no guarding or rebound. Musculoskeletal: Cervical back: Normal range of motion and neck supple. No edema, erythema, rigidity or tenderness. No pain with movement. Normal range of motion. Lymphadenopathy: Cervical: No cervical adenopathy. Skin: General: Skin is warm and dry. Neurological: Mental Status: She is alert and oriented to person, place, and time. ASSESSMENT/PLAN: 1. Lower respiratory tract infection - ICD9: 519.8, ICD10: J22 Patient nontoxic-appearing. Hemodynamically stable. No pleuritic pain hemoptysis shortness of breath chest pain. Suspicious lower respiratory tract infection versus viral illness. With new onset fever placed on doxycycline. Red flags for prompt ER evaluation discussed. Patient was educated on supportive therapies. Patient will follow up with primary care provider as needed. Patient was instructed to immediately proceed to emergency room for any new, worsening, or symptoms lasting longer than anticipated. The patient's clinical presentation is otherwise unremarkable at this time. Based on exam and clinical finding, the patient is stable for discharge. Plan of care was discussed with patient. Patient verbalizes understanding and agrees to plan of care. This note was generated using [id number] software. It may contain errors in wording, punctuation, or spelling. Humberto Miller APRN.TARA documented in this encounter [facility] 10-27-2023 History of Presen t illness Narrative Radiology Service Progress Note PATIENT NAME: Miguel Melvin DATE OF SERVICE: October 27, 2023 TIME: 1:00 PM PATIENT IDENTITY VERIFICATION COMPLETED USING TWO (2) IDENTIFIERS: Name and Date of confirmed by patient verbally. FALL SCREENING: Has the patient had 2 falls in the last year or 1 fall with injury or currently using an Ambulatory Assistive Device (Walker, Cane, Wheelchair, Crutches, etc.)? No PATIENT GENDER DATA: Female. status: : No status: NO. PATIENT RELEVANT IMPLANT DATA REVIEWED: Yes PATIENT PRESENTS WITH AN IMPLANTABLE OR ATTACHED ANIMAL KEEPER HEAD: No RADIOLOGY DEPARTMENT: General X-ray: Exam(s) Completed: Chest X-Ray PERIPHERAL IV DATA: Not applicable SIGNED BY: RT Jasmin(R) October 27, 2023 1:00 PM documented in this encounter [facility] 10-27-2023 History of Presen t illness Narrative Subjective HPI HPI Miguel Melvin is a 48 year old female who presents today for CC of cough, congestion, st, chills. This started 2 days ago. Has tried otc medication ofr relief. Symptoms are worsened by nothing. Risk factors covid exposures. .Patient presents with: Nasal Congestion: drainage, chills and sore throat x 2 days, covid exposure PAST MEDICAL HISTORY No date: Anxiety and depression No date: Chronic cough No date: GERD (gastroesophageal reflux disease) No date: History of HPV infection No date: History of seizures as a child Comment: last age 18 No date: Obesity (BMI 30-39.9) 11/2017: Pulmonary embolism (HCC) No date: Tobacco use PAST SURGICAL HISTORY No date: ANESTH, SECTION No date: LIG/TRNSXJ FLP TUBE ABDL/VAG APPR UNI/BI No date: PAST SURGICAL HISTORY OF Comment: No date: TUBAL LIGATION HX ALLERGIES Cinnamon and Cymbalta [Duloxetine] MEDICATIONS VRAYLAR 3 mg capsule Take 1 capsule by mouth every afternoon. hydrOXYzine HCl (ATARAX) 25 mg tablet take 1 tablet by mouth twice a day for anxiety losartan (COZAAR) 25 mg tablet Take 1 tablet by mouth every afternoon. Omeprazole 40 mg capsule Take 1 capsule by mouth once daily. hydrOXYzine pamoate (VISTARIL) 50 mg capsule Take 1 capsule by mouth three times daily as needed for Anxiety. iron polysaccharide complex (FERREX 150) 150 mg iron capsule Take 1 capsule by mouth twice daily. escitalopram oxalate (LEXAPRO) 5 mg tablet Take 5 mg by mouth. Gztbheyragivdcr-Zhfklsecf-FC (BROMFED DM) 2-30-10 mg/5 mL syrup Take 5 mL by mouth four times daily as needed. (Patient not taking: Reported on 04/14/2018 ) FLUoxetine HCl (PROZAC) 40 mg capsule Take 1 capsule by mouth once daily. (Patient not taking: Reported on 05/07/2018 ) ELIQUIS 5 mg tab(s) Take 1 tablet by mouth twice daily. (Patient not taking: Reported on 04/01/2018 ) nicotine (NICODERM) 21 mg/24 hr Apply 1 Patch as directed every 24 hours. For 6 weeks, then wean down (Patient not taking: Reported on 04/14/2018 ) nicotine (NICODERM) 14 mg/24 hr Apply 1 Patch as directed every 24 hours. No smoking with patch. Step 2 for 2 weeks, then wean down (Patient not taking: Reported on 04/14/2018 ) nicotine (NICODERM) 7 mg/24 hr Apply 1 Patch as directed every 24 hours. 2 wks, then stop (Patient not taking: Reported on 04/14/2018 ) famotidine (PEPCID) 20 mg tablet Take 1 tablet by mouth at bedtime as needed. (Patient not taking: Reported on 05/07/2018 ) FAMILY HISTORY Problem Relation Age of Onset Psychiatry Mother anxiety/depression Stroke Mother TIAs Seizures Mother Psychiatry Father anxiety/depression Cancer Maternal Grandmother cervical Breast Cancer Maternal Grandmother Cancer Paternal Grandmother bladder, liver, kidney Alzheimer's Disease Paternal Grandfather No Known Problems Sister No Known Problems Brother No Known Problems Brother Social History Tobacco Use Smoking status: Every Day Packs/day: 0.50 Years: 5.50 Additional pack years: 0.00 Total pack years: 2.75 Types: Cigarettes Smokeless tobacco: Never Substance Use Topics Alcohol use: Yes Comment: occasionally Drug use: No Review of Systems Constitutional: Negative for fever. HENT: Positive for congestion and sore throat. Negative for ear pain and nosebleeds. Respiratory: Positive for cough. Negative for shortness of breath and wheezing. Musculoskeletal: Negative for neck pain. Objective Blood pressure 112/66, pulse 88, temperature 36.4 C (97.6 F), resp. rate 16, weight 115.1 kg (253 lb 12 oz), last menstrual period 08/13/2023, SpO2 98%. Physical Exam Constitutional: General: She is not in acute distress. Appearance: She is not toxic-appearing or diaphoretic. HENT: Head: Normocephalic and atraumatic. Cardiovascular: Rate and Rhythm: Normal rate and regular rhythm. Heart sounds: Normal heart sounds, S1 normal and S2 normal. Pulmonary: Effort: Pulmonary effort is normal. Breath sounds: Normal breath sounds. Lymphadenopathy: Cervical: No cervical adenopathy. Right cervical: No superficial cervical adenopathy. Left cervical: No superficial cervical adenopathy. Neurological: Mental Status: She is alert and oriented to person, place, and time. Gait: Gait is intact. ASSESSMENT/PLAN: 1. URI, acute - ICD9: 465.9, ICD10: J06.9 (primary diagnosis) - Discussed viral etiology and rationale for treatment. - Symptomatic treatment with prn analgesia - Supportive care with fluids and rest - Follow up in 3-5 days if symptoms persist or sooner if worsening of symptoms - BENZONATATE 100 MG CAPSULE - COVID & INFLUENZA A/B & RSV NAAT, ROUTINE 2. Acute cough - ICD9: 786.2, ICD10: R05.1 - XR CHEST 2V FRONTAL/LAT IMPRESSION: Stable exam with no acute radiographic abnormality. Dictated by : MD Jaylan QUIÑONES APRN.[employer] documented in this encounter [facility] 09-01-2023 History of Presen t illness Narrative Subjective HPI Nontoxic-appearing female presents urgent care chief complaint nausea vomiting frequent stools. Duration of symptoms 1 day. Associated symptoms listed above. States that she does have some chills at times. Multiple episodes of vomiting this morning. Has not vomited in a few hours. Is tolerating oral fluids. Feels like she is improving. Requesting work excuse for missed day of work. No known sick contacts. No blood in vomit or stool. Denies any fever cough chest pain shortness of breath rashes dysuria frequency urgency. Denies chance of . Past medical history prescription medications allergies reviewed. .Patient presents with: Vomiting: Vomiting, stomach cramping, chills x 1 day PAST MEDICAL HISTORY Diagnosis Date Anxiety and depression Chronic cough GERD (gastroesophageal reflux disease) History of HPV infection History of seizures as a child last age 18 Obesity (BMI 30-39.9) Pulmonary embolism (HCC) 11/2017 Tobacco use PAST SURGICAL HISTORY Procedure Laterality Date ANESTH, SECTION LIG/TRNSXJ FLP TUBE ABDL/VAG APPR UNI/BI PAST SURGICAL HISTORY OF TUBAL LIGATION HX ALLERGIES Buspar [Buspirone Hcl], Cinnamon, and Cymbalta [Duloxetine] MEDICATIONS Omeprazole 40 mg capsule Take 1 capsule by mouth once daily. hydrOXYzine pamoate (VISTARIL) 50 mg capsule Take 1 capsule by mouth three times daily as needed for Anxiety. iron polysaccharide complex (FERREX 150) 150 mg iron capsule Take 1 capsule by mouth twice daily. escitalopram oxalate (LEXAPRO) 5 mg tablet Take 5 mg by mouth. Awxsrjwacghdzgb-Nwagwmunf-CM (BROMFED DM) 2-30-10 mg/5 mL syrup Take 5 mL by mouth four times daily as needed. (Patient not taking: Reported on 04/14/2018 ) FLUoxetine HCl (PROZAC) 40 mg capsule Take 1 capsule by mouth once daily. (Patient not taking: Reported on 05/07/2018 ) ELIQUIS 5 mg tab(s) Take 1 tablet by mouth twice daily. (Patient not taking: Reported on 04/01/2018 ) nicotine (NICODERM) 21 mg/24 hr Apply 1 Patch as directed every 24 hours. For 6 weeks, then wean down (Patient not taking: Reported on 04/14/2018 ) nicotine (NICODERM) 14 mg/24 hr Apply 1 Patch as directed every 24 hours. No smoking with patch. Step 2 for 2 weeks, then wean down (Patient not taking: Reported on 04/14/2018 ) nicotine (NICODERM) 7 mg/24 hr Apply 1 Patch as directed every 24 hours. 2 wks, then stop (Patient not taking: Reported on 04/14/2018 ) famotidine (PEPCID) 20 mg tablet Take 1 tablet by mouth at bedtime as needed. (Patient not taking: Reported on 05/07/2018 ) FAMILY HISTORY Problem Relation Age of Onset Psychiatry Mother anxiety/depression Stroke Mother TIAs Seizures Mother Psychiatry Father anxiety/depression Cancer Maternal Grandmother cervical Breast Cancer Maternal Grandmother Cancer Paternal Grandmother bladder, liver, kidney Alzheimer's Disease Paternal Grandfather No Known Problems Sister No Known Problems Brother No Known Problems Brother Social History Tobacco Use Smoking status: Every Day Packs/day: 0.50 Years: 5.50 Additional pack years: 0.00 Total pack years: 2.75 Types: Cigarettes Smokeless tobacco: Never Substance Use Topics Alcohol use: Yes Comment: occasionally Drug use: No BP 124/72 Pulse 84 Temp 36.3 C (97.3 F) (Tympanic) Resp 18 Wt 116 kg (255 lb 11.7 oz) LMP 08/13/2023 (Exact Date) SpO2 98% BMI 40.49 kg/m Review of Systems Constitutional: Negative for chills, fever and malaise/fatigue. HENT: Negative for congestion, ear discharge, ear pain, sinus pain and sore throat. Eyes: Negative for blurred vision, pain, discharge and redness. Respiratory: Negative for cough, hemoptysis, sputum production, shortness of breath, wheezing and stridor. Cardiovascular: Negative for chest pain. Gastrointestinal: Positive for abdominal pain, diarrhea, nausea and vomiting. Negative for blood in stool and melena. Musculoskeletal: Negative for myalgias. Skin: Negative for itching and rash. Neurological: Negative for dizziness and headaches. Objective Physical Exam Constitutional: General: She is not in acute distress. Appearance: She is not diaphoretic. HENT: Head: Normocephalic. Jaw: No trismus, tenderness, swelling or pain on movement. Mouth/Throat: Mouth: Mucous membranes are moist. Pharynx: Oropharynx is clear. Uvula midline. No pharyngeal swelling, oropharyngeal exudate, posterior oropharyngeal erythema or uvula swelling. Eyes: Conjunctiva/sclera: Conjunctivae normal. Pupils: Pupils are equal, round, and reactive to light. Cardiovascular: Rate and Rhythm: Normal rate and regular rhythm. Heart sounds: Normal heart sounds. Pulmonary: Effort: Pulmonary effort is normal. No tachypnea, accessory muscle usage or respiratory distress. Breath sounds: Normal breath sounds. No stridor. No wheezing, rhonchi or rales. Abdominal: General: There is no distension. Palpations: Abdomen is soft. Tenderness: There is generalized abdominal tenderness. There is no guarding or rebound. Musculoskeletal: Cervical back: Normal range of motion and neck supple. No edema, erythema, rigidity or tenderness. No pain with movement. Normal range of motion. Lymphadenopathy: Cervical: No cervical adenopathy. Skin: General: Skin is warm and dry. Neurological: Mental Status: She is alert and oriented to person, place, and time. ASSESSMENT/PLAN: 1. Nausea vomiting and diarrhea - ICD9: 787.91, 787.01, ICD10: R11.2, R19.7 Patient nontoxic-appearing. No evidence of acute abdomen. No evidence of dehydration. Diagnosed with nausea vomiting diarrhea. Red flags reevaluation discussed. Patient was educated on supportive therapies. Patient will follow up with primary care provider as needed. Patient was instructed to immediately proceed to emergency room for any new, worsening, or symptoms lasting longer than anticipated. The patient's clinical presentation is otherwise unremarkable at this time. Based on exam and clinical finding, the patient is stable for discharge. Plan of care was discussed with patient. Patient verbalizes understanding and agrees to plan of care. This note was generated using [id number] software. It may contain errors in wording, punctuation, or spelling. Humberto Miller APRN.[employer] documented in this encounter [facility] 08-14-2023 History of Presen t illness Narrative Subjective HPI HPI Miguel Melvin is a 48 year old female who presents today for CC of nausea, vomiting, diarrhea. This started 2 days ago/slight improvement today. Has tried nothing for relief. Symptoms are worsened by nothing. No sick exposures known. Denies possibility of being . .Patient presents with: Nausea & Vomiting: Stomach pain x2 days PAST MEDICAL HISTORY Diagnosis Date Anxiety and depression Chronic cough GERD (gastroesophageal reflux disease) History of HPV infection History of seizures as a child last age 18 Obesity (BMI 30-39.9) Pulmonary embolism (HCC) 11/2017 Tobacco use PAST SURGICAL HISTORY Procedure Laterality Date ANESTH, SECTION LIG/TRNSXJ FLP TUBE ABDL/VAG APPR UNI/BI PAST SURGICAL HISTORY OF TUBAL LIGATION HX ALLERGIES Buspar [Buspirone Hcl], Cinnamon, and Cymbalta [Duloxetine] MEDICATIONS escitalopram oxalate (LEXAPRO) 5 mg tablet Take 5 mg by mouth. Omeprazole 40 mg capsule Take 1 capsule by mouth once daily. hydrOXYzine pamoate (VISTARIL) 50 mg capsule Take 1 capsule by mouth three times daily as needed for Anxiety. iron polysaccharide complex (FERREX 150) 150 mg iron capsule Take 1 capsule by mouth twice daily. Ubpntbzqxtwwufp-Xinsryepb-LW (BROMFED DM) 2-30-10 mg/5 mL syrup Take 5 mL by mouth four times daily as needed. (Patient not taking: Reported on 04/14/2018 ) FLUoxetine HCl (PROZAC) 40 mg capsule Take 1 capsule by mouth once daily. (Patient not taking: Reported on 05/07/2018 ) ELIQUIS 5 mg tab(s) Take 1 tablet by mouth twice daily. (Patient not taking: Reported on 04/01/2018 ) nicotine (NICODERM) 21 mg/24 hr Apply 1 Patch as directed every 24 hours. For 6 weeks, then wean down (Patient not taking: Reported on 04/14/2018 ) nicotine (NICODERM) 14 mg/24 hr Apply 1 Patch as directed every 24 hours. No smoking with patch. Step 2 for 2 weeks, then wean down (Patient not taking: Reported on 04/14/2018 ) nicotine (NICODERM) 7 mg/24 hr Apply 1 Patch as directed every 24 hours. 2 wks, then stop (Patient not taking: Reported on 04/14/2018 ) famotidine (PEPCID) 20 mg tablet Take 1 tablet by mouth at bedtime as needed. (Patient not taking: Reported on 05/07/2018 ) FAMILY HISTORY Problem Relation Age of Onset Psychiatry Mother anxiety/depression Stroke Mother TIAs Seizures Mother Psychiatry Father anxiety/depression Cancer Maternal Grandmother cervical Breast Cancer Maternal Grandmother Cancer Paternal Grandmother bladder, liver, kidney Alzheimer's Disease Paternal Grandfather No Known Problems Sister No Known Problems Brother No Known Problems Brother Social History Tobacco Use Smoking status: Every Day Packs/day: 0.50 Years: 5.50 Additional pack years: 0.00 Total pack years: 2.75 Types: Cigarettes Smokeless tobacco: Never Substance Use Topics Alcohol use: Yes Comment: occasionally Drug use: No ROS Objective Blood pressure 138/78, pulse 66, temperature 36.1 C (96.9 F), resp. rate 16, weight 115.7 kg (255 lb 1.2 oz), last menstrual period 08/13/2023, SpO2 97%. Physical Exam Constitutional: General: She is not in acute distress. Appearance: Normal appearance. She is not toxic-appearing. Cardiovascular: Rate and Rhythm: Normal rate and regular rhythm. Heart sounds: Normal heart sounds. Pulmonary: Effort: Pulmonary effort is normal. Breath sounds: Normal breath sounds. Abdominal: General: Bowel sounds are normal. Palpations: Abdomen is soft. Tenderness: There is no abdominal tenderness. Skin: General: Skin is warm and dry. ASSESSMENT/PLAN: 1. Vomiting and diarrhea - ICD9: 787.03, 787.91, ICD10: R11.10, R19.7 Brat diet discussed Red flag s/s discussed Push fluids Jaylan Rand APRN.[employer] documented in this encounter [facility] Evaluation note Diagnosis Onset Date Anxiety and depression acute Bipolar depression acute Morbid obesity [facility] Work Phone: Evaluation note* Diagnosis Onset Date Resolution Status Anxiety and depression acute Obesity [facility] Work Phone: Evaluation note* Diagnosis Onset Date Resolution Status Flu vaccine need acute Anxiety and depression chron ic Dermatitis chronic Hypertension [facility] Work Phone: Evaluation note* Diagnosis Vomiting and diarrhea- Primary Vomiting alone documented in this encounter [facility] note* Diagnosis Nausea vomiting and diarrhea- Primary Diarrhea documented in this encounter [facility] note* Diagnosis URI, acute- Primary Acute upper respiratory infections of unspecified site Acute cough documented in this encounter [facility] note* Diagnosis Lower respiratory tract infection- Primary Other diseases of respiratory system, not elsewhere classified documented in this encounter [facility] note* Diagnosis Viral bronchitis- Primary Acute bronchitis Otalgia of both ears Otalgia, unspecified documented in this encounter [facility] note* Diagnosis Acute cough- Primary Respiratory infection Other diseases of respiratory system, not elsewhere classified documented in this encounter [facility] note* Diagnosis Conjunctivitis of both eyes, unspecified conjunctivitis type- Primary documented in this encounter [facility] note* Diagnosis Urticaria of unknown origin- Primary documented in this encounter [facility] Summary Purpose Family History No Family History Records Found Relationship Condition Age at Onset Recorded Date/T john Not Specified Anxiety with depression Unknown grandmother Malignant neoplasm Unknown grandfather Dementia Unknown Advance Directives No Advanced Directives Records Found Advance Directive Response Recorded Date/ Time Advance Directives No April 12:14pm Living Will No June 05, 2021 9:26pm Power of Inside Sales Representative No June 05 9:26pm Advance Directive Response Recorded Date/ Time Advance Directives No February 28, 2020 12:21pm Living Will No June 05, 2021 9:26pm Power of Inside Sales Representative No June 05 9:26pm Advance Directive Response Recorded Date/ Time Advance Directives No November 12:04pm Living Will No November 28 023 12:04pm Power of Inside Sales Representative No November 28, 2022 12:04pm Chief Complaint and Reason for Visit Chief Complaint follow up Reason for Visit Anxiety and depressi on Bipolar depression Morbid obesity Chief Complaint 1 M FU for Meds MORBID OBESITY Reason for Visit Anxiety and depressi on Obesity Chief Complaint MORBID OBESITY 3 M FU R/S FROM 8/30 Reason for Visit Flu vaccine need Anxiety and depression Dermatitis Hypertension Additional Source Comments INFORMATION SOURCE (unrecogn ized section and content) DATE CREATED AUTHOR 09/15/2017 [place] DATE CREATED AUTHOR AUTHOR'S ORGANIZ ATION 10/30/2024 [facility] DATE CREATED AUTHOR AUTHOR'S ORGANIZ ATION 11/17/2024 [facility] Care Teams (unrecognized sec tion and content) Team Status: Active Member Role Status Dates Dr. Elfego Hall MD Family Provider Active Dr. Princess Baca MD Primary Care Provider Active Team Status: Inactive Member Role Status Dates Dr. Princess Baca MD Primary Care P rovider, Attending Provider, Referring Provider Active Team Status: Inactive Member Role Status Dates Jose Manuel Ferrer EMISSIONS REPAIR TECHNICIAN, EMISSIONS REPAIR TECHNICIAN-C Attending Provider Active Dr. Princess Baca MD Primary Care Provider, Refer ring Provider Active Team Status: Inactive Member Role Status Dates Dr. Princess Baca MD Primary Care Provider Active Jose Manuel Ferrer EMISSIONS REPAIR TECHNICIAN, EMISSIONS REPAIR TECHNICIAN-C Attending Provider, Referring Prov ider Active Team Status: Inactive Member Role Status Dates Dr. Princess Baca MD Primary Care Provider, Atten ding Provider Active Thermodynamicist Relationship Specialty Start Date End Date Princess Baca MD [address] [place] [phone] PCP - General Internal Medicine 08/14/23 Thermodynamicist Relationship Specialty Start Date End Date Princess Baca MD [address] [place] [phone] PCP - General Internal Medicine 08/14/23 Thermodynamicist Relationship Specialty Start Date End Date Princess Baca MD [address] [facility] [address] [place] [address] PCP - General Internal Medicine 08/14/23 Thermodynamicist Relationship Specialty Start Date End Date Princess Baca MD [address] [place] [phone] PCP - General Internal Medicine 08/14/23 Thermodynamicist Relationship Specialty Start Date End Date Princess Baca MD [address] [place] [address] PCP - General Internal Medicine 08/14/23 Thermodynamicist Relationship Specialty Start Date End Date Princess Baca MD [address] [place] [address] PCP - General Internal Medicine 08/14/23 Thermodynamicist Relationship Specialty Start Date End Date Princess Baca MD [address] [place] [phone] PCP - General Internal Medicine 08/14/23 Thermodynamicist Relationship Specialty Start Date End Date Princess Baca MD [address] [place] [phone] PCP - General Internal Medicine 08/14/23 Goals (unrecognized section and content) Goals may be documented in a n alternate sectionGoals may be documented in an alternate sectionGoals may be documented in an alternate section Source Comments (unrecognize d section and content) In the event this informatio n is protected by the Federal Confidentiality of Alcohol and Drug Abuse Patient Records regulations: The Federal rules restrict any use of the information to criminally investigate or prosecute any alcohol or drug abuse patient.[facility] event this information is protected by the Federal Confidentiality of Alcohol and Drug Abuse Patient Records regulations: The Federal rules restrict any use of the information to criminally investigate or prosecute any alcohol or drug abuse patient.[facility] the event this information is protected by the Federal Confidentiality of Alcohol and Drug Abuse Patient Records regulations: The Federal rules restrict any use of the information to criminally investigate or prosecute any alcohol or drug abuse patient.[facility] the event this information is protected by the Federal Confidentiality of Alcohol and Drug Abuse Patient Records regulations: The Federal rules restrict any use of the information to criminally investigate or prosecute any alcohol or drug abuse patient.[facility] the event this information is protected by the Federal Confidentiality of Alcohol and Drug Abuse Patient Records regulations: The Federal rules restrict any use of the information to criminally investigate or prosecute any alcohol or drug abuse patient.[facility] the event this information is protected by the Federal Confidentiality of Alcohol and Drug Abuse Patient Records regulations: The Federal rules restrict any use of the information to criminally investigate or prosecute any alcohol or drug abuse patient.[facility] the event this information is protected by the Federal Confidentiality of Alcohol and Drug Abuse Patient Records regulations: The Federal rules restrict any use of the information to criminally investigate or prosecute any alcohol or drug abuse patient.[facility] the event this information is protected by the Federal Confidentiality of Alcohol and Drug Abuse Patient Records regulations: The Federal rules restrict any use of the information to criminally investigate or prosecute any alcohol or drug abuse patient.[facility] the event this information is protected by the Federal Confidentiality of Alcohol and Drug Abuse Patient Records regulations: The Federal rules restrict any use of the information to criminally investigate or prosecute any alcohol or drug abuse patient.[facility] Reason for Visit (unrecogniz ed section and content) Reason Comments Nausea & Vomiting Stomach pain x2 days Reason Comments Vomiting Vomiting, stomach cr amping, chills x 1 day Reason Comments Nasal Congestion drainage, chills and sore throat x 2 days, covid exposure Reason Comments Cough Chest congestion, ye llow phlegm, SOB, wheeze, fatigue, body aches, fever x 2 days Reason Comments Cough Cough, chest congest ion and SOB x 8 days Reason Comments Throat Problem Laryngitis Reason Comments Eye Problem bilateral matting, i tching and redness in eyes x this am Reason Comments Hives Hives on both feet x 1 day FOR RECORDS PERTAINING TO PATIENTS WHO ARE OR HAVE BEEN ENROLLED IN A CHEMICAL DEPENDENCY/SUBSTANCEABUSE PROGRAM, SOME INFORMATION MAY BE OMITTED. This clinical summary was aggregated from multiple sources. Caution should be exercised in using it in the provision of clinical care. This summary normalizes information from multiple sources, and as a consequence, information in this document may materially change the coding, format and clinical context of patient data. In addition, data may be omitted in some cases. CLINICAL DECISIONS SHOULD BE BASED ON THE PRIMARY CLINICAL RECORDS. [facility]. provides no warranty or guarantee of the accuracy or completeness of information in this document.
== END | disposition home or self-care (01) ==
LOC: BIMLAB 15:14
PROVIDERS: PCP Internal Medicine; Referring Provider Internal Medicine; Visit Provider Internal Medicine
DX: D64.9 Anemia, unspecified (principal); R73.03 Prediabetes; I10 Essential (primary) hypertension
CPT/HCPCS: 36415; 80048; 83036; 85025

== ENCOUNTER 2024-12-09 07:46 | Outpatient (CLI) | payer MEDICAID, SELFPAY ==
[2024-04-05 15:57] VITALS: BMI 41.0
--- OUTSIDE RECORDS SUMMARY | 2024-12-09 08:07 | XMS RPT_ITS | CCD ---
Author Organization [facility] Care Team Providers Care Audit Clerk Name Role Phone NHUNG MOROCHO Unavailable Unavailable RILEY HALL Unavailable Unavailable Dr. Leanna Baca Primary Care Provider [phone] Dr. Leanna Baca Attending Provider [phone] Dr. Leanna Baca Referring Provider [phone] Nabil BRICEÑO, ROSHAN Pastrana Attending Provider [phone] Dr. Leanna Baca Primary Care Provider [phone]) Dr. Leanna Baca Referring Provider [phone] Dr. Leanna Baca Primary Care Provider 1([phone]) Dr. Leanna Baca Attending Provider [phone] Dr. Leanna Baca Referring Provider [phone] Leanna Baca MD Primary Care Provider [phone]) LEANNA BACA Primary Care Unavailable JAYDA PEÑALOZA Attending Unavailable LEANNA BACA Primary Care Unavailable LEANNA BACA Primary Care Unavailable LEANNA BACA Primary Care Unavailable LEANNA BACA Primary Care Unavailable Nagajothi, Nagapradee Referring Unavailabl e Phillip Roweapradee Attending Unavaildenise e Leanna Baca Primary Care Unavailable Nagajothi, Nagapradee Referring Unavailabl e Ashly Roweadekartik Attending Unavaildenise e Oleghe, Efewongbe Primary Care Unavailable Christoph Swartz Attending Unavailable Oleghe, Efewongbe Primary Care Unavailable Oleghe, Efewongbe Referring Unavailable Oleghe, Efewongbe Attending Unavailable Oleghe, Efewongbe Primary Care Unavailable Oleghe, Efewongbe Referring Unavailable Oleghe, Efewongbe Attending Unavailable Oleghe, Efewongbe Primary Care Unavailable Oleghe, Efewongbe Primary Care Unavailable Angelita Lucio Attending Unavailabl e Oleghe, Efewongbe Referring Unavailable Oleghe, Efewongbe Primary [...] Referring Unavailable Oleghe, Efewongbe Primary Care Unavailable Nagajothi, Nagapradee Referring Unavailabl e Nagajothi, Nagapradee Attending Unavailabl e Oleghe, Efewongbe Primary Care Unavailable Oleghe, Efewongbe Referring Unavailable Oleghe, Efewongbe Primary Care Unavailable Oleghe, Efewongbe Attending Unavailable Nagajothi, Nagapradee Attending Unavailabl e Nagajothi, Nagapradee Referring Unavailabl e Oleghe, Efewongbe Primary Care Unavailable Oleghe, Efewongbe Primary Care Unavailable Nagajothi, Nagapradee Attending Unavailabl e Nagajothi, Nagapradee Referring Unavailabl e Oleghe, Efewongbe Referring Unavailable Oleghe, Efewongbe Primary Care Unavailable Oleghe, Efewongbe Attending Unavailable Oleghe, Efewongbe Primary Care Unavailable Noemi Virgen Attending Unavailable Oleghe, Efewongbe Primary Care Unavailable [place] BUTTON TUFTING MACHINE OPERATOR, Misti Attending Unavailable Teri BUTTON TUFTING MACHINE OPERATOR, Misti Referring Unavailable Oleghe, Efewongbe Primary Care Unavailable [place] BUTTON TUFTING MACHINE OPERATOR, Misti Attending Unavailable Teri BUTTON TUFTING MACHINE OPERATOR, Misti Referring Unavailable Oleghe, Efewongbe Referring Unavailable Oleghe, Efewongbe Attending Unavailable Oleghe, Efewongbe Primary Care Unavailable Oleghe, Efewongbe Referring Unavailable Oleghe, Efewongbe Primary Care Unavailable Oleghe, Efewongbe Attending Unavailable Oleghe, Efewongbe Referring Unavailable Oleghe, Efewongbe Primary Care Unavailable Oleghe, Efewongbe Attending Unavailable Oleghe, Efewongbe Referring Unavailable Oleghe, Efewongbe Primary Care Unavailable Franchesca Aquino NP Attending Unavailable Oleghe, Efewongbe Referring Unavailable Oleghe, Efewongbe Primary Care Unavailable Tin Navarro Attending Unavailable Oleghe, Efewongbe Referring Unavailable Oleghe, Efewongbe Primary Care Unavailable Misti Williamson NP Attending Unavailable Oleghe, Efewongbe Referring Unavailable Oleghe, Efewongbe Primary Care Unavailable Misti Williamson NP Attending Unavailable Oleghe, Efewongbe Referring Unavailable Oleghe, Efewongbe Primary Care Unavailable Tin Navarro Attending Unavailable Oleghe, Efewongbe Primary Care Unavailable Noemi Virgen Attending Unavailable Oleghe, Efewongbe Referring Unavailable Oleghe, Efewongbe Primary Care Unavailable Misti Williamson NP Attending Unavailable Oleghe, Efewongbe Referring Unavailable Oleghe, Efewongbe Primary Care Unavailable Oleghe, Efewongbe Attending Unavailable Noemi Virgen Attending Unavailable Oleghe, Efewongbe Primary Care Unavailable Oleghe, Efewongbe Referring Unavailable Oleghe, Efewongbe Primary Care Unavailable Angelita Lucio Attending Unavailabl e Oleghe, Efewongbe Primary Care Unavailable Noemi Virgen Attending Unavailable Oleghe, Efewongbe Referring Unavailable Oleghe, Efewongbe Attending Unavailable Oleghe, Efewongbe Primary Care Unavailable Noemi Virgen Attending Unavailable Oleghe, Efewongbe Primary Care Unavailable Oleghe, Efewongbe Referring Unavailable Oleghe, Efewongbe Attending Unavailable Oleghe, Efewongbe Primary Care Unavailable Noemi Virgen Attending Unavailable Oleghe, Efewongbe Primary Care Unavailable Oleghe, Efewongbe Referring Unavailable Oleghe, Efewongbe Primary Care Unavailable ChuyLeanna bucio Attending Unavailable Chuyrupinder Leanna Referring Unavailable Chuyrupinder Leanna Primary Care Unavailable Rosemarie Bacanarenarleenkyleigh Attending Unavailable Allergies Allergy Classification Reported Allergen(s) Allergy Type Date of Onset Reaction(s) Facility busPIRone (1 source) busPIRone Drug Allergy 8 Other: See Comments [facility] Work Phone: Cinnamon Preparation (1 source) Cinnamon Preparation Drug Allergy 8 [facility] DULoxetine (1 source) DULoxetine Drug Allergy 8 Other: See Comments [facility] (12 sources) Cinnamon Preparation; Translations: [CINNAMON] Drug Allergy 8 [facility] (1 source) busPIRone Drug Allergy 8 Other: See Comments [facility] Work Phone: (9 sources) DULoxetine; Translations: [DULOXETINE] Drug Allergy 8 Other: See Comments [facility] (1 source) Cinnamon Preparation Drug Allergy 5 [facility] Repository Medications Current Medications Medication Drug Class(es) Dates Sig (Normalized) Sig (Original) [id number] 200 actuat albuterol 0.09 mg/actuat metered dose [...] oral solution (9 sources) alpha-Adrenergic Agonist, Uncompetitive G-mtcicr-T-aspartate Receptor Antagonist, Sigma-1 Agonist Start: 04-01-2018 take 5 mL by mouth four times daily as needed Aoskfsmjbpebdnr-Ovadmwurq-XS (BROMFED DM) 2-30-10 mg/5 mL syrup Indications: [...] Cariprazine Discontinued 3 M G .ROUTE .COMPLEX September 11, 2022 10:35am January 21, 2023 [...] 40 mg tablet 04/10/2024 Active polymyxin b 28076 unt/ml / trimethoprim 1 mg/ml ophthalmic solution [...] 30 mg oral tablet (3 sources) Uncompetitive A-lachzc-N-asparta te Receptor Antagonist, Sigma-1 Agonist Start: 04-01-2021 [...] 5 12-15-2019 Episodic Disorders of lipid metabolism (1 source) Mixed hyperlipidemia; Translations: [Mixed hyperlipidemia] Onset: 5 Chronic Disorders of teeth and jaw (3 [...] sources) Sinusitis; Translations: [Chronic sinusitis, unspecified] Onset: 07-02-2021 Chronic Other upper respiratory infections (4 [...] Classification Problem Date Documented Da te Episodic/Chronic Deficiency and other anemia (1 source) Iron deficiency anemia, unspecified; Translations: [Iron deficiency anemia, unspecified] Onset: 06-22-2024 Episodic Nonspecific chest pain (1 source) Chest pain, unspecified; Translations: [Chest pain, unspecified] Onset: 03-25-2024 Episodic Other screening for suspected conditions (not mental disorders or infectious disease) (4 sources) Patient encounter status; Translations: [Encounter for screening for other suspected endocrine disorder] Onset: 08-16-2024 2 Episodic Pulmonary heart disease (12 sources) H/O: pulmonary embolus; Translations: [Personal history of pulmonary embolism] Onset: 05-07-2018 12-15-2019 Episodic Results Test Name Value Interpretation Reference Range Facility Basic Metabolic Profile (BMP )on 11-28-2024 BUN/CRE 9.9 RATIO Low 10-20 [facility] Comment on above: Performed By: #### L 100.0100, L500.2500, L501.9985 ####[facility] [address] [place], [address] Calcium [Mass/Vol] 9.2 mg/dL Normal 7.6-11.0 [facility] Comment on above: Performed By: #### L 100.0100, L500.2500, L501.9985 ####[facility] [address] [place], [address] Chloride [Moles/Vol] 106 mmol/L Normal 98-108 [facility] Comment on above: Performed By: #### L 100.0100, L500.2500, L501.9985 ####[facility] [address] [place], [address] CO2 [Moles/Vol] 22.2 mmol/L Normal 21.0-32.0 [facility] Comment on above: Performed By: #### L 100.0100, L500.2500, L501.9985 ####[facility] [address] [place], [address] Creatinine [Mass/Vol] 0.88 mg/dL Normal 0.70-1.20 [facility] Comment on above: Performed By: #### L 100.0100, L500.2500, L501.9985 ####[facility] [address] [place], [address] GAP 11 Normal 5-15 [facility] Comment on above: Performed By: #### L 100.0100, L500.2500, L501.9985 ####[facility] [address] [place], [address] GFR/1.73 sq M.predicted among non-blacks MDRD (S/P/Bld) [Vol rate/Area] 82 mL/min/{1.73_m2} Normal >60 [facility] Comment on above: Result Comment: mL/m in/1.73m2 CKD-EPI Creatinine Equation (2020) Performed By: #### L 100.0100, L500.2500, L501.9985 ####[facility] [address] [place], [address] Glucose [Mass/Vol] 109 mg/dL High 70-99 [facility] Comment on above: Performed By: #### L 100.0100, L500.2500, L501.9985 ####[facility] [address] [place], [address] Potassium [Moles/Vol] 4.0 mmol/L Normal 3.3-5.1 [facility] Comment on above: Performed By: #### L 100.0100, L500.2500, L501.9985 ####[facility] [address] [place], [address] Sodium [Moles/Vol] 139 mmol/L Normal 133-145 [facility] Comment on above: Performed By: #### L 100.0100, L500.2500, L501.9985 ####[facility] [address] [place], [address] Urea nitrogen [Mass/Vol] 9 mg/dL Normal 4-19 [facility] Comment on above: Performed By: #### L 100.0100, L500.2500, L501.9985 ####[facility] [address] [place], [address] CBC W/Diff, Automatedon 09-0 Absolute Lymph 1.47 X10 3/uL Normal 0.83-4.51 [facility] Comment on above: Performed By: #### L 100.0100, L500.2500, L501.9985 ####[facility] [address] [place], [address] Absolute Neut 2.6 X10 3/uL Normal 2.0-7.7 [facility] Comment on above: Performed By: #### L 100.0100, L500.2500, L501.9985 ####[facility] [address] [place], [address] Basophils/100 WBC (Bld) 0.8 % Normal 0-1 [facility] Comment on above: Performed By: #### L 100.0100, L500.2500, L501.9985 ####[facility] [address] [place], [address] Eosinophils/100 WBC (Bld) 3.6 % Normal 0-5 [facility] Comment on above: Performed By: #### L 100.0100, L500.2500, L501.9985 ####[facility] [address] [place], [address] Erythrocyte distribution width (RBC) [Ratio] 18.4 % High 11.6-14.6 [facility] Comment on above: Performed By: #### L 100.0100, L500.2500, L501.9985 ####[facility] [address] [place], [address] Hematocrit (Bld) [Volume fraction] 28.6 % Low 37-47 [facility] Comment on above: Performed By: #### L 100.0100, L500.2500, L501.9985 ####[facility] [address] [place], [address] Hemoglobin (Bld) [Mass/Vol] 7.8 g/dL Low 12.0-15.0 [facility] Comment on above: Performed By: #### L 100.0100, L500.2500, L501.9985 ####[facility] [address] [place], [address] IG% 0.200 Normal 0.0-0.9 [facility] Comment on above: Result Comment: IG% - Immature Granulocytes (promyelocytes, myelocytes and metamyelocytes) > 1% indicates that a LEFT SHIFT is Present. Performed By: #### L 100.0100, L500.2500, L501.9985 ####[facility] [address] [place], [address] Lymphocytes/100 WBC (Bld) 30.9 % Normal 19-41 [facility] Comment on above: Performed By: #### L 100.0100, L500.2500, L501.9985 ####[facility] [address] [place], [address] MCH (RBC) [Entitic mass] 19.2 pg Low 27.0-32.0 [facility] Comment on above: Performed By: #### L 100.0100, L500.2500, L501.9985 ####[facility] [address] [place], [address] MCHC (RBC) [Mass/Vol] 27.3 g/dL Low 32-36 [facility] Comment on above: Performed By: #### L 100.0100, L500.2500, L501.9985 ####[facility] [address] [place], [address] MCV (RBC) [Entitic vol] 70.4 fL Low 81-99 [facility] Comment on above: Performed By: #### L 100.0100, L500.2500, L501.9985 ####[facility] [address] [place], [address] Monocytes/100 WBC (Bld) 9.0 % Normal 0-10 [facility] Comment on above: Performed By: #### L 100.0100, L500.2500, L501.9985 ####[facility] [address] [place], [address] Neutrophils/100 WBC (Bld) 55.5 % Normal 47-70 [facility] Comment on above: Performed By: #### L 100.0100, L500.2500, L501.9985 ####[facility] [address] [place], [address] Nucleated RBC (Bld) [#/Vol] 0 10*3/uL Normal 0-5 [facility] Comment on above: Performed By: #### L 100.0100, L500.2500, L501.9985 ####[facility] [address] [place], [address] Platelet mean volume (Bld) [Entitic vol] 11.0 fL Normal 6.2-12.0 [facility] Comment on above: Performed By: #### L 100.0100, L500.2500, L501.9985 ####[facility] [address] [place], [address] Platelets (Bld) [#/Vol] 270 10*3/uL Normal 150-450 [facility] Comment on above: Performed By: #### L 100.0100, L500.2500, L501.9985 ####[facility] [address] [place], [address] RBC (Bld) [#/Vol] 4.06 10*6/uL Low 4.2-5.4 [facility] Comment on above: Performed By: #### L 100.0100, L500.2500, L501.9985 ####[facility] [address] [place], [address] RDW SD 45.8 fl High 35.1-43.9 [facility] Comment on above: Performed By: #### L 100.0100, L500.2500, L501.9985 ####[facility] [address] [place], [address] WBC (Bld) [#/Vol] 4.8 10*3/uL Normal 4.4-11.0 [facility] Comment on above: Performed By: #### L 100.0100, L500.2500, L501.9985 ####[facility] [address] [place], [address] Hemoglobin A1con 11-28-2024 HbA1c (Bld) [Mass fraction] 5.8 % High <=5.6 [facility] Comment on above: Result Comment: Norm al < 5.7 % Prediabetic 5.7 - 6.4 % Diabetic >or= 6.5 % Please note range changes. Performed By: #### L 100.0100, L500.2500, L501.9985 ####[facility] [address] [place], [address] Internal Medicine Office Vis iton 11-07-2024 Internal Medicine Office Visit [facility] [place], [place] [address] OFFICE VISIT Date of Service: 11/07/24 MR#: [id number] Acct: [id number] Name: MIGUEL MELVIN Rep #: [id number] : 1975 Provider: Dr. Leanna jesus MD Age/Sex: 49/F Location[place] [facility] Status: Signed Intake Vital Signs 07/27/24 15:59 [...] M FU Chief Complaint: 3 m fu Registered Medical Assistant Required: No Accompanied by: Self Is patient [...] 2 diabetes mellitus Atherosclerotic heart disease of [place] coronary artery without angina pectoris URI (upper respiratory infection) Bipolar depression Anxiety and depression Bilateral primary osteoarthritis of knee Knee pain, bilateral Abdominal wall abscess Bronchitis Sinusitis Screening for thyroid disorder COVID-19 Right elbow pain Swelling of thyroid gland Enlarged uterus Osteoarthritis of both knees GERD (gastroesophageal reflux disease) Depression Anxiety Alcohol abuse Surgical History Stented coronary artery (11/12/23) [place] teeth removed History of History of tubal [...] patient descri (more content not included)... Normal [facility] Customer Trainer Office Visit Reporton 11-04-2024 Customer Trainer Office Visit Report [facility] [address], [address] [place] [address] OFFICE VISIT Date of Service: 11/04/24 MR#: [id number] Acct: [id number] Name: MIGUEL MELVIN Rep #: [id number] : 1975 Provider: Dr. Angelita Ma, Age/Sex: 49/F Location: [facility] Status: Signed Intake Vital Signs 09/15/24 14:59 11/04/24 13:18 11/04/24 13:20 Height 5 ft 6 in 5 ft 6 in 5 ft 6 in Weight: 258 lb 7 oz BMI 41.7 BP 126/79 H Intake Visit Reasons: Hyst Consult Registered Medical Assistant Required: No Is patient in pain?: No [...] 2 diabetes mellitus Atherosclerotic heart disease of [place] coronary artery without angina pectoris URI (upper respiratory infection) Bipolar depression Anxiety and depression Bilateral primary osteoarthritis of knee Knee pain, bilateral Abdominal wall abscess Bronchitis Sinusitis Screening for thyroid disorder COVID-19 Right elbow pain Swelling of thyroid gland Enlarged uterus Osteoarthritis of both knees GERD (gastroesophageal reflux disease) Depression Anxiety Alcohol abuse Surgical History Stented coronary artery (11/12/23) [place] teeth removed History of History of tubal [...] a myocardial infarction in October of the (more content not included)... Normal [facility] [place] 10-27-2024 [facility] Office Visit ([facility]) MIGUEL MELVIN ([id number]) 1975 F Date Time Provider Department 10/27/24 7:00 PM JAYDA PEÑALOZA During your visit today, we recorded the following information about you: Temperature Pulse Respiration Blood pressure 97.8 degrees 77/minute 18/minute 127/82 Weight 118.2 kg Jayda Peñaloza APRN.CNP 10/27/2024 7:14 PM Signed [facility] Subjective Miguel Bundy Olegario is a 49 [...] absence due to illness. and Recording using [employer] software for draft documentation of the visit was discussed with the patient/authorized bank representative; all questions welcomed and answered. Patient/authorized bank representative agreed to proceed MDM Procedures Allergies [...] MA 10/27/2024 6:58 PM >> [facility] Oct 27, 2024 6:58 PM Problem List As Of Date 10/27/2024 Noted Resolved Anxiety and depression [F41.9, F32.A] GERD (gastroesophageal reflux disease) [K21.9] Obesity (BMI 30-39.9) [E66.9] Tobacco use [Z72.0] Pulmonary embolus with infarc (more content not included)... Normal [facility] MR/BMS.BPon 09-15-2024 MR/BMS.BP [facility] [address], [address] [place] [address] OFFICE VISIT Date of Service: 09/15/24 MR#: [id number] Acct: [id number] Name: MIGUEL MELVIN Rep #: [id number] : 1975 Provider: ROSHAN herzog Age/Sex: 49/F Location[place] [facility] Status: Signed Intake Vital Signs 08/30/24 11:11 [...] 2 diabetes mellitus Atherosclerotic heart disease of [place] coronary artery without angina pectoris URI (upper respiratory infection) Bipolar depression Anxiety and depression Bilateral primary osteoarthritis of knee Knee pain, bilateral Abdominal wall abscess Bronchitis Sinusitis Screening for thyroid disorder COVID-19 Right elbow pain Swelling of thyroid gland Enlarged uterus Osteoarthritis of both knees GERD (gastroesophageal reflux disease) Depression Anxiety Alcohol abuse Surgical History Stented coronary artery (11/12/23) [place] teeth removed History of History of tubal [...] evaluation. Reports she has continued to do [employer] and is continuing to work at [employer] as well. D oes feel fatigued from [...] self re (more content not included)... Normal [facility] Cardiology Visit Reporton Cardiology Visit Report [facility] [address] [place] [address] OFFICE VISIT Date of Service: 08/30/24 MR#: [id number] Acct: [id number] Name: MIGUEL MELVIN Rep #: [id number] : 1975 Provider: ROSHAN lee Age/Sex: 49/F Location: [facility] Status: Signed HPI HPI History of Present [...] 98 Intake Visit Reasons: 3 M FU Registered Medical Assistant Required: No Is patient in pain?: No [...] 2 diabetes mellitus Atherosclerotic heart disease of [place] coronary artery without angina pectoris URI (upper respiratory infection) Bipolar depression Anxiety and depression Bilateral primary osteoarthritis of knee Knee pain, bilateral Abdominal wall abscess Bronchitis Sinusitis Screening for thyroid disorder COVID-19 Right elbow pain Swelling of thyroid gland Enlarged uterus Osteoarthritis of both knees GERD (gastroesophageal reflux disease) Depression Anxiety Alcohol abuse Surgical History (Reviewed 08/30/24 @ 14:06 by Franchesca Aquino BUTTON TUFTING MACHINE OPERATOR, BUTTON TUFTING MACHINE OPERATOR-C) Stented coronary artery (11/12/23) [place] teeth removed History of History of tubal ligation Family History Grandmother Cancer Grandfather Dementia Other Depression with anxiety Social History (Reviewed 08/30/24 @ 14:06 by Franchesca Aquino BUTTON TUFTING MACHINE OPERATOR, BUTTON TUFTING MACHINE OPERATOR-C) household members: children housing: house (more content not included)... Normal [facility] Pelvic w/ Transvaginalon Pelvic w/ Transvaginal [facility] Imaging Services [address] [place], [place] [id number] Pelvic w/ Transvaginal MR#: [id number] Acct: [id number] Name: MIGUEL MELVIN Rep #: [id number] : 1975 F 49 From: Jerald Myers MD PCP: Dr. Leanna Baca MD Status: REG CLI Study: Pelvic w/ Transvaginal Date of Exam: 08/22/24 Exam# [id number] Ordering Dr: Misti Williamson BUTTON TUFTING MACHINE OPERATOR BUTTON TUFTING MACHINE OPERATOR -C PROCEDURE: PELVIC W/ TRANSVAGINAL 08/22/2024 REASON [...] right ovary. Unremarkable left ovary. Reading Location: [facility] CC: ROSHAN Williamson; Dr. Leanna Baca MD Crutch Maker: Signed Normal [facility] Customer Trainer Office Visit Reporton 08-16-2024 Customer Trainer Office Visit Report [facility] [address], [address] [place] [address] OFFICE VISIT Date of Service: 08/16/24 MR#: [id number] Acct: [id number] Name: MIGUEL MELVIN Rep #: [id number] : 1975 Provider: ROSHAN bobby Age/Sex: 49/F [place] [facility] Status: Signed Intake Vital Signs 07/27/24 15:59 [...] Reasons: Heavy, frequent menses Chief Complaint: AUB Registered Medical Assistant Required: No Is patient in pain?: No [...] 2 diabetes mellitus Atherosclerotic heart disease of [place] coronary artery without angina pectoris URI (upper respiratory infection) Bipolar depression Anxiety and depression Bilateral primary osteoarthritis of knee Knee pain, bilateral Abdominal wall abscess Bronchitis Sinusitis Screening for thyroid disorder COVID-19 Right elbow pain Swelling of thyroid gland Enlarged uterus Osteoarthritis of both knees GERD (gastroesophageal reflux disease) Depression Anxiety Alcohol abuse Surgical History Stented coronary artery (11/12/23) [place] teeth removed History of History of tubal [...] Date Name GA/Weeks Outcome Route Bth Weight Gen Labor Lgth Anesthesia Del Locatn Provider FOB Unknown Martin1996 Unknown Caress 1996 Unknown Corvay 1999 Unknown Caliy[place] 2003 HPI Heavy, frequent (more content not included)... [facility] Lexy 08-16-2024 Surgery Specimen Level IV -------- Patient Age/Sex Location Account Attending Physician -------- MIGUEL MELVIN 49/F LABSPEC [id number] ROSHAN Lewis -------- Specimen: [id number] Received: 08/16/24 Status: ADELINA De Jesus Num: [id number] Spec Type: SANTIAGO BX/C Smith Dr: ROSHAN Lewis HEADER OPERATION: Endometrial [...] in aggregate. Submitted in toto in A1-2. [facility] 08-17-2024 CPT: 21890 -------- Patient Age/Sex Location Account Attending Physician -------- MIGUEL MELVIN/F LABSPEC [id number] ROSHAN Lewis -------- Signed (signature on file) Dr. Roopa John MD 08/20/24 1604 -------- Normal [facility] Comment on above: Performed By: #### P ROBERTIV #### [facility] Laboratory [address] [place], [address] CBC W/Diff, Automatedon 05-1 -2024 Absolute Lymph 1.11 X10 3/uL Normal 0.83-4.51 [facility] Comment on above: Performed By: #### L 100.0100, L500.4050, L501.9520, L503.0106, L503.6030, L503.6550, L506.0400 ####[facility] [address] [place], [address] Absolute Neut 8.9 X10 3/uL High 2.0-7.7 [facility] Comment on above: Performed By: #### L 100.0100, L500.4050, L501.9520, L503.0106, L503.6030, L503.6550, L506.0400 ####[facility] [address] [place], [address] Basophils/100 WBC (Bld) 0.2 % Normal 0-1 [facility] Comment on above: Performed By: #### L 100.0100, L500.4050, L501.9520, L503.0106, L503.6030, L503.6550, L506.0400 ####[facility] [address] [place], [address] Eosinophils/100 WBC (Bld) 0.1 % Normal 0-5 [facility] Comment on above: Performed By: #### L 100.0100, L500.4050, L501.9520, L503.0106, L503.6030, L503.6550, L506.0400 ####[facility] [address] [place], [address] Erythrocyte distribution width (RBC) [Ratio] 17.9 % High 11.6-14.6 [facility] Comment on above: Performed By: #### L 100.0100, L500.4050, L501.9520, L503.0106, L503.6030, L503.6550, L506.0400 ####[facility] [address] [place], [address] Hematocrit (Bld) [Volume fraction] 40.5 % Normal 37-47 [facility] Comment on above: Performed By: #### L 100.0100, L500.4050, L501.9520, L503.0106, L503.6030, L503.6550, L506.0400 ####[facility] [address] [place], [address] Hemoglobin (Bld) [Mass/Vol] 12.4 g/dL Normal 12.0-15.0 [facility] Comment on above: Performed By: #### L 100.0100, L500.4050, L501.9520, L503.0106, L503.6030, L503.6550, L506.0400 ####[facility] [address] [place], [address] IG% 0.500 Normal 0.0-0.9 [facility] Comment on above: Result Comment: IG% - Immature Granulocytes (promyelocytes, myelocytes and metamyelocytes) > 1% indicates that a LEFT SHIFT is Present. Performed By: #### L 100.0100, L500.4050, L501.9520, L503.0106, L503.6030, L503.6550, L506.0400 ####[facility] [address] [place], [address] Lymphocytes/100 WBC (Bld) 10.5 % Low 19-41 [facility] Comment on above: Performed By: #### L 100.0100, L500.4050, L501.9520, L503.0106, L503.6030, L503.6550, L506.0400 ####[facility] [address] [place], [address] MCH (RBC) [Entitic mass] 25.3 pg Low 27.0-32.0 [facility] Comment on above: Performed By: #### L 100.0100, L500.4050, L501.9520, L503.0106, L503.6030, L503.6550, L506.0400 ####[facility] [address] [place], [address] MCHC (RBC) [Mass/Vol] 30.6 g/dL Low 32-36 [facility] Comment on above: Performed By: #### L 100.0100, L500.4050, L501.9520, L503.0106, L503.6030, L503.6550, L506.0400 ####[facility] [address] [place], [address] MCV (RBC) [Entitic vol] 82.5 fL Normal 81-99 [facility] Comment on above: Performed By: #### L 100.0100, L500.4050, L501.9520, L503.0106, L503.6030, L503.6550, L506.0400 ####[facility] [address] [place], [address] Monocytes/100 WBC (Bld) 4.4 % Normal 0-10 [facility] Comment on above: Performed By: #### L 100.0100, L500.4050, L501.9520, L503.0106, L503.6030, L503.6550, L506.0400 ####[facility] [address] [place], [address] Neutrophils/100 WBC (Bld) 84.3 % High 47-70 [facility] Comment on above: Performed By: #### L 100.0100, L500.4050, L501.9520, L503.0106, L503.6030, L503.6550, L506.0400 ####[facility] [address] [place], [address] Nucleated RBC (Bld) [#/Vol] 0 10*3/uL Normal 0-5 [facility] Comment on above: Performed By: #### L 100.0100, L500.4050, L501.9520, L503.0106, L503.6030, L503.6550, L506.0400 ####[facility] [address] [place], [address] Platelet mean volume (Bld) [Entitic vol] 11.1 fL Normal 6.2-12.0 [facility] Comment on above: Performed By: #### L 100.0100, L500.4050, L501.9520, L503.0106, L503.6030, L503.6550, L506.0400 ####[facility] [address] [place], [address] Platelets (Bld) [#/Vol] 357 10*3/uL Normal 150-450 [facility] Comment on above: Performed By: #### L 100.0100, L500.4050, L501.9520, L503.0106, L503.6030, L503.6550, L506.0400 ####[facility] [address] [place], [address] RBC (Bld) [#/Vol] 4.91 10*6/uL Normal 4.2-5.4 [facility] Comment on above: Performed By: #### L 100.0100, L500.4050, L501.9520, L503.0106, L503.6030, L503.6550, L506.0400 ####[facility] [address] [place], [address] RDW SD 54.1 fl High 35.1-43.9 [facility] Comment on above: Performed By: #### L 100.0100, L500.4050, L501.9520, L503.0106, L503.6030, L503.6550, L506.0400 ####[facility] [address] [place], [address] WBC (Bld) [#/Vol] 10.6 10*3/uL Normal 4.4-11.0 [facility] Comment on above: Performed By: #### L 100.0100, L500.4050, L501.9520, L503.0106, L503.6030, L503.6550, L506.0400 ####[facility] [address] [place], [address] Comprehensive Metabolic Prof azon 08-01-2024 Albumin [Mass/Vol] 4.5 g/dL Normal 3.5-5.0 [facility] Comment on above: Performed By: #### L 100.0100, L500.4050, L501.9520, L503.0106, L503.6030, L503.6550, L506.0400 ####[facility] [address] [place], [address] Albumin/Globulin [Mass ratio] 1.4 {ratio} Normal 0.9-2.4 [facility] Comment on above: Performed By: #### L 100.0100, L500.4050, L501.9520, L503.0106, L503.6030, L503.6550, L506.0400 ####[facility] [address] [place], [address] ALK PHOS 107 U/L High 35-104 [facility] Comment on above: Performed By: #### L 100.0100, L500.4050, L501.9520, L503.0106, L503.6030, L503.6550, L506.0400 ####[facility] [address] [place], [address] ALT [Catalytic activity/Vol] 14 U/L Normal <=34 [facility] Comment on above: Performed By: #### L 100.0100, L500.4050, L501.9520, L503.0106, L503.6030, L503.6550, L506.0400 ####[facility] [address] [place], [address] AST [Catalytic activity/Vol] 13 U/L Normal <=31 [facility] Comment on above: Performed By: #### L 100.0100, L500.4050, L501.9520, L503.0106, L503.6030, L503.6550, L506.0400 ####[facility] [address] [place], [address] Bilirubin [Mass/Vol] 0.29 mg/dL Normal 0.00-1.30 [facility] Comment on above: Performed By: #### L 100.0100, L500.4050, L501.9520, L503.0106, L503.6030, L503.6550, L506.0400 ####[facility] [address] [place], [address] BUN/CRE 13.4 RATIO Normal 10-20 [facility] Comment on above: Performed By: #### L 100.0100, L500.4050, L501.9520, L503.0106, L503.6030, L503.6550, L506.0400 ####[facility] [address] [place], [address] Calcium [Mass/Vol] 9.6 mg/dL Normal 7.6-11.0 [facility] Comment on above: Performed By: #### L 100.0100, L500.4050, L501.9520, L503.0106, L503.6030, L503.6550, L506.0400 ####[facility] [address] [place], [address] Chloride [Moles/Vol] 105 mmol/L Normal 98-108 [facility] Comment on above: Performed By: #### L 100.0100, L500.4050, L501.9520, L503.0106, L503.6030, L503.6550, L506.0400 ####[facility] [address] [place], [address] CO2 [Moles/Vol] 21.2 mmol/L Normal 21.0-32.0 [facility] Comment on above: Performed By: #### L 100.0100, L500.4050, L501.9520, L503.0106, L503.6030, L503.6550, L506.0400 ####[facility] [address] [place], [address] Creatinine [Mass/Vol] 0.73 mg/dL Normal 0.70-1.20 [facility] Comment on above: Performed By: #### L 100.0100, L500.4050, L501.9520, L503.0106, L503.6030, L503.6550, L506.0400 ####[facility] [address] [place], [address] GAP 13 Normal 5-15 [facility] Comment on above: Performed By: #### L 100.0100, L500.4050, L501.9520, L503.0106, L503.6030, L503.6550, L506.0400 ####[facility] [address] [place], [address] GFR/1.73 sq M.predicted among non-blacks MDRD (S/P/Bld) [Vol rate/Area] 102 mL/min/{1.73_m2} Normal >60 [facility] Comment on above: Result Comment: mL/m in/1.73m2 CKD-EPI Creatinine Equation (2020) Performed By: #### L 100.0100, L500.4050, L501.9520, L503.0106, L503.6030, L503.6550, L506.0400 ####[facility] [address] [place], [address] Globulin (S) [Mass/Vol] 3.2 g/dL Normal 2.2-4.2 [facility] Comment on above: Performed By: #### L 100.0100, L500.4050, L501.9520, L503.0106, L503.6030, L503.6550, L506.0400 ####[facility] [address] [place], [address] Glucose [Mass/Vol] 147 mg/dL High 70-99 [facility] Comment on above: Performed By: #### L 100.0100, L500.4050, L501.9520, L503.0106, L503.6030, L503.6550, L506.0400 ####[facility] [address] [place], [address] Potassium [Moles/Vol] 4.2 mmol/L Normal 3.3-5.1 [facility] Comment on above: Performed By: #### L 100.0100, L500.4050, L501.9520, L503.0106, L503.6030, L503.6550, L506.0400 ####[facility] [address] [place], [address] Sodium [Moles/Vol] 139 mmol/L Normal 133-145 [facility] Comment on above: Performed By: #### L 100.0100, L500.4050, L501.9520, L503.0106, L503.6030, L503.6550, L506.0400 ####[facility] [address] [place], [address] T PROT 7.7 g/dL Normal 5.9-8.4 [facility] Comment on above: Performed By: #### L 100.0100, L500.4050, L501.9520, L503.0106, L503.6030, L503.6550, L506.0400 ####[facility] [address] [place], [address] Urea nitrogen [Mass/Vol] 10 mg/dL Normal 4-19 [facility] Comment on above: Performed By: #### L 100.0100, L500.4050, L501.9520, L503.0106, L503.6030, L503.6550, L506.0400 ####[facility] [address] [place], [place], [id number]) Ferritinon 08-01-2024 Ferritin [Mass/Vol] 27 ng/mL Normal 22-378 [facility] Comment on above: Performed By: #### L 100.0100, L500.4050, L501.9520, L503.0106, L503.6030, L503.6550, L506.0400 ####[facility] [address] [place], [address] Iron+Iron Binding Capacityon 08-01-2024 Iron [Mass/Vol] 181 ug/dL High 50-170 [facility] Comment on above: Performed By: #### L 100.0100, L500.4050, L501.9520, L503.0106, L503.6030, L503.6550, L506.0400 ####[facility] [address] [place], [address] IRON SATURATION 46.0 Normal 13-59 [facility] Comment on above: Performed By: #### L 100.0100, L500.4050, L501.9520, L503.0106, L503.6030, L503.6550, L506.0400 ####[facility] [address] [place], [address] TIBC 394 ug/dL Normal 250-450 [facility] Comment on above: Performed By: #### L 100.0100, L500.4050, L501.9520, L503.0106, L503.6030, L503.6550, L506.0400 ####[facility] [address] [place], [address] UIBC 213 ug/dL Low 228-428 [facility] Comment on above: Performed By: #### L 100.0100, L500.4050, L501.9520, L503.0106, L503.6030, L503.6550, L506.0400 ####[facility] [address] [place], [address] T4 Free Directon 08-01-2024 T4 FREE DIRECT 1.30 ng/dL Normal 0.76-1.46 [facility] Comment on above: Performed By: #### L 100.0100, L500.4050, L501.9520, L503.0106, L503.6030, L503.6550, L506.0400 ####[facility] [address] [place], [address] Thyroid Stim Hormone (TSH)on 08-01-2024 TSH 0.846 uIU/mL Normal 0.300-4.200 [facility] Comment on above: Performed By: #### L 100.0100, L500.4050, L501.9520, L503.0106, L503.6030, L503.6550, L506.0400 ####[facility] [address] [place], [address] Vitamin B12on 08-01-2024 Cobalamin (Vitamin B12) [Mass/Vol] 313 pg/mL Normal 180-914 [facility] Comment on above: Performed By: #### L 100.0100, L500.4050, L501.9520, L503.0106, L503.6030, L503.6550, L506.0400 ####[facility] [address] [place], [address] Internal Medicine Office Vis iton 07-27-2024 Internal Medicine Office Visit [facility] [address] [place] [address] [place] [address] OFFICE VISIT Date of Service: 07/27/24 MR#: [id number] Acct: [id number] Name: MIGUEL MELVIN Rep #: [id number] : 1975 Provider: Dr. Leanna jesus MD Age/Sex: 49/F [place] [facility] Status: Signed Intake Vital Signs 04/20/24 17:54 [...] Chief Complaint: Follow-up chronic conditions. 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 Normal [facility] CNOVon 05-09-2024 [facility] Office Visit ([facility] ) MIGUEL MELVIN ([id number]) 1975 F Date Time Provider Department 05/09/24 2:00 PM JOSE MANUEL OGDEN [facility] During your visit today, we recorded the following information about you: Temperature Pulse Respiration Blood pressure 97 degrees 60/minute 16/minute 136/82 Weight 113.1 kg Jose Manuel Ogden PA-C 05/09/2024 2:07 PM Signed This note was created using [employer]. Subjective Miguel Melvin is a 48 year [...] - PREDNISONE 20 MG TABLET Jose Manuel ITZEL Ogden Allergies As of Date: 05/09/2024 Noted Allergy [...] by m (more content not included)... Normal [facility] Ferritinon 04-27-2024 Ferritin [Mass/Vol] 7 ng/mL Low 8-252 [facility] Comment on above: Performed By: #### L 503.6075, L503.6150, L503.6550 ####[facility] [address] [place], [address] Ironon 04-27-2024 Iron [Mass/Vol] 17 ug/dL Low 50-170 [facility] Comment on above: Performed By: #### L 503.6075, L503.6150, L503.6550 ####[facility] [address] [place], [address] Iron Binding Capacity,Totalo n 04-27-2024 TIBC 484 ug/dL High 250-450 [facility] Comment on above: Performed By: #### L 503.6075, L503.6150, L503.6550 ####[facility] [address] [place], [address] Bilirubin, Directon 04-25-19 25 Bilirubin.direct [Mass/Vol] 0.14 mg/dL Normal 0.00-0.30 [facility] Comment on above: Order Comment: DR. Niraj DANIELS ORDERED CBCD, CMP, AND LIPIDJOHN ROF ORDERED LIVER AND LIPID Performed By: #### L 500.4050, L500.4100, L501.4700, L100.0100 ####[facility] [address], [address] CBC W/Diff, Automatedon Absolute Lymph 1.87 X10 3/uL Normal 0.83-4.51 [facility] Comment on above: Order Comment: DR. Niraj DANIELS ORDERED CBCD, CMP, AND LIPIDJOHN ROF ORDERED LIVER AND LIPID Performed By: #### L 500.4050, L500.4100, L501.4700, L100.0100 ####[facility] [address] [place], [address] Absolute Neut 4.1 X10 3/uL Normal 2.0-7.7 [facility] Comment on above: Order Comment: DR. Niraj DANIELS ORDERED CBCD, CMP, AND LIPIDJOHN ROF ORDERED LIVER AND LIPID Performed By: #### L 500.4050, L500.4100, L501.4700, L100.0100 ####[facility] [address] [place], [address] Basophils/100 WBC (Bld) 0.6 % Normal 0-1 [facility] Comment on above: Order Comment: DR. Niraj DANIELS ORDERED CBCD, CMP, AND LIPIDJOHN ROF ORDERED LIVER AND LIPID Performed By: #### L 500.4050, L500.4100, L501.4700, L100.0100 ####[facility] [address] [place], [address] Eosinophils/100 WBC (Bld) 2.4 % Normal 0-5 [facility] Comment on above: Order Comment: DR. Niraj DANIELS ORDERED CBCD, CMP, AND LIPIDJOHN ROF ORDERED LIVER AND LIPID Performed By: #### L 500.4050, L500.4100, L501.4700, L100.0100 ####[facility] [address] [place], [address] Erythrocyte distribution width (RBC) [Ratio] 15.7 % High 11.6-14.6 [facility] Comment on above: Order Comment: DR. Niraj DANIELS ORDERED CBCD, CMP, AND LIPIDJOHN ROF ORDERED LIVER AND LIPID Performed By: #### L 500.4050, L500.4100, L501.4700, L100.0100 ####[facility] [address] [place], [address] Hematocrit (Bld) [Volume fraction] 36.0 % Low 37-47 [facility] Comment on above: Order Comment: DR. Niraj DANIELS ORDERED CBCD, CMP, AND LIPIDJOHN ROF ORDERED LIVER AND LIPID Performed By: #### L 500.4050, L500.4100, L501.4700, L100.0100 ####[facility] [address] [place], [address] Hemoglobin (Bld) [Mass/Vol] 10.6 g/dL Low 12.0-15.0 [facility] Comment on above: Order Comment: DR. Niraj DANIELS ORDERED CBCD, CMP, AND LIPIDJOHN ROF ORDERED LIVER AND LIPID Performed By: #### L 500.4050, L500.4100, L501.4700, L100.0100 ####[facility] [address] [place], [address] IG% 0.500 Normal 0.0-0.9 [facility] Comment on above: Order Comment: DR. Niraj DANIELS ORDERED CBCD, CMP, AND LIPIDJOHN ROF ORDERED LIVER AND LIPID Result Comment: IG% - Immature Granulocytes (promyelocytes, myelocytes and metamyelocytes) > 1% indicates that a LEFT SHIFT is Present. Performed By: #### L 500.4050, L500.4100, L501.4700, L100.0100 ####[facility] [address] [place], [address] Lymphocytes/100 WBC (Bld) 28.1 % Normal 19-41 [facility] Comment on above: Order Comment: DR. Niraj DANIELS ORDERED CBCD, CMP, AND LIPIDJOHN ROF ORDERED LIVER AND LIPID Performed By: #### L 500.4050, L500.4100, L501.4700, L100.0100 ####[facility] [address] [place], [address] MCH (RBC) [Entitic mass] 22.6 pg Low 27.0-32.0 [facility] Comment on above: Order Comment: DR. Niraj DANIELS ORDERED CBCD, CMP, AND LIPIDJOHN ROF ORDERED LIVER AND LIPID Performed By: #### L 500.4050, L500.4100, L501.4700, L100.0100 ####[facility] [address] [place], [address] MCHC (RBC) [Mass/Vol] 29.4 g/dL Low 32-36 [facility] Comment on above: Order Comment: DR. Niraj DANIELS ORDERED CBCD, CMP, AND LIPIDJOHN ROF ORDERED LIVER AND LIPID Performed By: #### L 500.4050, L500.4100, L501.4700, L100.0100 ####[facility] [address] [place], [address] MCV (RBC) [Entitic vol] 76.6 fL Low 81-99 [facility] Comment on above: Order Comment: DR. Niraj DANIELS ORDERED CBCD, CMP, AND LIPIDJOHN ROF ORDERED LIVER AND LIPID Performed By: #### L 500.4050, L500.4100, L501.4700, L100.0100 ####[facility] [address] [place], [address] Monocytes/100 WBC (Bld) 6.9 % Normal 0-10 [facility] Comment on above: Order Comment: DR. Niraj DANIELS ORDERED CBCD, CMP, AND LIPIDJOHN ROF ORDERED LIVER AND LIPID Performed By: #### L 500.4050, L500.4100, L501.4700, L100.0100 ####[facility] [address], [address] Neutrophils/100 WBC (Bld) 61.5 % Normal 47-70 [facility] Comment on above: Order Comment: DR. Niraj DANIELS ORDERED CBCD, CMP, AND LIPIDJOHN ROF ORDERED LIVER AND LIPID Performed By: #### L 500.4050, L500.4100, L501.4700, L100.0100 ####[facility] [address] [place], [address] Nucleated RBC (Bld) [#/Vol] 0 10*3/uL Normal 0-5 [facility] Comment on above: Order Comment: DR. Niraj DANIELS ORDERED CBCD, CMP, AND LIPIDJOHN ROF ORDERED LIVER AND LIPID Performed By: #### L 500.4050, L500.4100, L501.4700, L100.0100 ####[facility] [address] [place], [address] Platelet mean volume (Bld) [Entitic vol] 10.8 fL Normal 6.2-12.0 [facility] Comment on above: Order Comment: DR. Niraj DANIELS ORDERED CBCD, CMP, AND LIPIDJOHN ROF ORDERED LIVER AND LIPID Performed By: #### L 500.4050, L500.4100, L501.4700, L100.0100 ####[facility] [address] [place], [address] Platelets (Bld) [#/Vol] 334 10*3/uL Normal 150-450 [facility] Comment on above: Order Comment: DR. Niraj DANIELS ORDERED CBCD, CMP, AND LIPIDJOHN ROF ORDERED LIVER AND LIPID Performed By: #### L 500.4050, L500.4100, L501.4700, L100.0100 ####[facility] [address] [place], [address] RBC (Bld) [#/Vol] 4.70 10*6/uL Normal 4.2-5.4 [facility] Comment on above: Order Comment: DR. Niraj DANIELS ORDERED CBCD, CMP, AND LIPIDJOHN ROF ORDERED LIVER AND LIPID Performed By: #### L 500.4050, L500.4100, L501.4700, L100.0100 ####[facility] [address] [place], [address] RDW SD 43.1 fl Normal 35.1-43.9 [facility] Comment on above: Order Comment: DR. Niraj DANIELS ORDERED CBCD, CMP, AND LIPIDJOHN ROF ORDERED LIVER AND LIPID Performed By: #### L 500.4050, L500.4100, L501.4700, L100.0100 ####[facility] [address] [place], [address] WBC (Bld) [#/Vol] 6.7 10*3/uL Normal 4.4-11.0 [facility] Comment on above: Order Comment: DR. Niraj DANIELS ORDERED CBCD, CMP, AND LIPIDJOHN ROF ORDERED LIVER AND LIPID Performed By: #### L 500.4050, L500.4100, L501.4700, L100.0100 ####[facility] [address] [place], [address] Comprehensive Metabolic Prof ilon 04-25-2024 Albumin [Mass/Vol] 3.7 g/dL Normal 3.2-5.0 [facility] Comment on above: Order Comment: DR. Niraj DANIELS ORDERED CBCD, CMP, AND LIPIDJOHN ROF ORDERED LIVER AND LIPID Performed By: #### L 500.4050, L500.4100, L501.4700, L100.0100 ####[facility] [address] [place], [address] Albumin/Globulin [Mass ratio] 0.9 {ratio} Normal 0.9-2.4 [facility] Comment on above: Order Comment: DR. Niraj DANIELS ORDERED CBCD, CMP, AND LIPIDJOHN ROF ORDERED LIVER AND LIPID Performed By: #### L 500.4050, L500.4100, L501.4700, L100.0100 ####[facility] [address] [place], [address] ALK P 118 U/L High 45-117 [facility] Comment on above: Order Comment: DR. Niraj DANIELS ORDERED CBCD, CMP, AND LIPIDJOHN ROF ORDERED LIVER AND LIPID Performed By: #### L 500.4050, L500.4100, L501.4700, L100.0100 ####[facility] [address] [place], [address] ALT [Catalytic activity/Vol] 31 U/L Normal 13-56 [facility] Comment on above: Order Comment: DR. Niraj DANIELS ORDERED CBCD, CMP, AND LIPIDJOHN ROF ORDERED LIVER AND LIPID Performed By: #### L 500.4050, L500.4100, L501.4700, L100.0100 ####[facility] [address] [place], [address] AST [Catalytic activity/Vol] 17 U/L Normal 15-37 [facility] Comment on above: Order Comment: DR. Niraj DANIELS ORDERED CBCD, CMP, AND LIPIDJOHN ROF ORDERED LIVER AND LIPID Performed By: #### L 500.4050, L500.4100, L501.4700, L100.0100 ####[facility] [address] [place], [address] Bilirubin [Mass/Vol] 0.40 mg/dL Normal 0.20-1.00 [facility] Comment on above: Order Comment: DR. Niraj DANIELS ORDERED CBCD, CMP, AND LIPIDJOHN ROF ORDERED LIVER AND LIPID Result Comment: For patients on eltrombopag therapy, use of Dimension [place] TBIL is not recommended. Performed By: #### L 500.4050, L500.4100, L501.4700, L100.0100 ####[facility] [address] [place], [address] BUN/CRE 10.2 RATIO Normal 10-20 [facility] Comment on above: Order Comment: DR. Niraj DANIELS ORDERED CBCD, CMP, AND LIPIDJOHN ROF ORDERED LIVER AND LIPID Performed By: #### L 500.4050, L500.4100, L501.4700, L100.0100 ####[facility] [address] [place], [address] CA,Total 8.9 mg/dL Normal 8.5-10.1 [facility] Comment on above: Order Comment: DR. Niraj DANIELS ORDERED CBCD, CMP, AND LIPIDJOHN ROF ORDERED LIVER AND LIPID Performed By: #### L 500.4050, L500.4100, L501.4700, L100.0100 ####[facility] [address] [place], [address] Chloride [Moles/Vol] 106 mmol/L Normal 98-107 [facility] Comment on above: Order Comment: DR. Niraj DANIELS ORDERED CBCD, CMP, AND LIPIDJOHN ROF ORDERED LIVER AND LIPID Performed By: #### L 500.4050, L500.4100, L501.4700, L100.0100 ####[facility] [address] [place], [address] CO2 [Moles/Vol] 23.0 mmol/L Normal 21.0-32.0 [facility] Comment on above: Order Comment: DR. Niraj DANIELS ORDERED CBCD, CMP, AND LIPIDJOHN ROF ORDERED LIVER AND LIPID Performed By: #### L 500.4050, L500.4100, L501.4700, L100.0100 ####[facility] [address] [place], [address] Creatinine [Mass/Vol] 0.98 mg/dL Normal 0.55-1.02 [facility] Comment on above: Order Comment: DR. Niraj DANIELS ORDERED CBCD, CMP, AND LIPIDJOHN ROF ORDERED LIVER AND LIPID Result Comment: The validity of the calculated GFR GFRAA in patients over 70 years has not been determined. Clinical correlation is essential. Performed By: #### L 500.4050, L500.4100, L501.4700, L100.0100 ####[facility] [address] [place], [address] EST GFR - AA 78 mL/min Normal >60 [facility] Comment on above: Order Comment: DR. Niraj DANIELS ORDERED CBCD, CMP, AND LIPIDJOHN ROF ORDERED LIVER AND LIPID Result Comment: Afri can [place]ral[place] GFR Calc Performed By: #### L 500.4050, L500.4100, L501.4700, L100.0100 ####[facility] [address] [place], [address] GAP 8 Normal 5-15 [facility] Comment on above: Order Comment: DR. Niraj DANIELS ORDERED CBCD, CMP, AND LIPIDJOHN ROF ORDERED LIVER AND LIPID Performed By: #### L 500.4050, L500.4100, L501.4700, L100.0100 ####[facility] [address] [place], [address] GFR/1.73 sq M.predicted among non-blacks MDRD (S/P/Bld) [Vol rate/Area] 65 mL/min/{1.73_m2} Normal >60 [facility] Comment on above: Order Comment: DR. Niraj DANIELS ORDERED CBCD, CMP, AND LIPIDJOHN ROF ORDERED LIVER AND LIPID Result Comment: Non- GFR Calc Performed By: #### L 500.4050, L500.4100, L501.4700, L100.0100 ####[facility] [address] [place], [address] Globulin (S) [Mass/Vol] 4.1 g/dL Normal 2.2-4.2 [facility] Comment on above: Order Comment: DR. Niraj DANIELS ORDERED CBCD, CMP, AND LIPIDJOHN ROF ORDERED LIVER AND LIPID Performed By: #### L 500.4050, L500.4100, L501.4700, L100.0100 ####[facility] [address] [place], [address] Glucose [Mass/Vol] 103 mg/dL Normal 74-106 [facility] Comment on above: Order Comment: DR. Niraj DANIELS ORDERED CBCD, CMP, AND LIPIDJOHN ROF ORDERED LIVER AND LIPID Result Comment: Fast ing Glucose result from 100 to 125 mg/dL suggests IMPAIRED HOMEOSTASIS per A.D.A. criteria. Performed By: #### L 500.4050, L500.4100, L501.4700, L100.0100 ####[facility] [address] [place], [address] Potassium [Moles/Vol] 3.7 mmol/L Normal 3.5-5.1 [facility] Comment on above: Order Comment: DR. Niraj DANIELS ORDERED CBCD, CMP, AND LIPIDJOHN ROF ORDERED LIVER AND LIPID Performed By: #### L 500.4050, L500.4100, L501.4700, L100.0100 ####[facility] [address] [place], [address] Sodium [Moles/Vol] 137 mmol/L Normal 136-145 [facility] Comment on above: Order Comment: DR. Niraj DANIELS ORDERED CBCD, CMP, AND LIPIDJOHN ROF ORDERED LIVER AND LIPID Performed By: #### L 500.4050, L500.4100, L501.4700, L100.0100 ####[facility] [address] [place], [address] T PROT 7.8 g/dL Normal 6.4-8.2 [facility] Comment on above: Order Comment: DR. Niraj DANIELS ORDERED CBCD, CMP, AND LIPIDJOHN ROF ORDERED LIVER AND LIPID Performed By: #### L 500.4050, L500.4100, L501.4700, L100.0100 ####[facility] [address] [place], [address] Urea nitrogen [Mass/Vol] 10 mg/dL Normal 7-18 [facility] Comment on above: Order Comment: DR. Niraj DANIELS ORDERED CBCD, CMP, AND LIPIDJOHN ROF ORDERED LIVER AND LIPID Performed By: #### L 500.4050, L500.4100, L501.4700, L100.0100 ####[facility] [address] [place], [address] Lipid Profileon 04-25-2024 Cholesterol [Mass/Vol] 146 mg/dL Normal 200 [facility] Comment on above: Order Comment: DR. Niraj DANIELS ORDERED CBCD, CMP, AND LIPIDJOHN ROF ORDERED LIVER AND LIPID Result Comment: <200 mg/dL Desirable 200-240 mg/dL Borderline >240 mg/dL High Risk Performed By: #### L 500.4050, L500.4100, L501.4700, L100.0100 ####[facility] [address] [place], [address] Cholesterol in HDL [Mass/Vol] 71 mg/dL Normal [facility] Comment on above: Order Comment: DR. Niraj DANIELS ORDERED CBCD, CMP, AND LIPIDJOHN ROF ORDERED LIVER AND LIPID Result Comment: The drugs N-Acetylcysteine and Metamizole may falsely depress this assay. Reference Range HDL <40 mg/dL Low HDL Cholesterol HDL >or= 60 mg/dL High HDL Cholesterol Performed By: #### L 500.4050, L500.4100, L501.4700, L100.0100 ####[facility] [address] [place], [address] Cholesterol in LDL [Mass/Vol] 61 mg/dL Normal 0-130 [facility] Comment on above: Order Comment: DR. Niraj DANIELS ORDERED CBCD, CMP, AND LIPIDJOHN ROF ORDERED LIVER AND LIPID Performed By: #### L 500.4050, L500.4100, L501.4700, L100.0100 ####[facility] [address] [place], [address] Cholesterol in VLDL [Mass/Vol] 14 mg/dL Normal 5-40 [facility] Comment on above: Order Comment: DR. Niraj DANIELS ORDERED CBCD, CMP, AND LIPIDJOHN ROF ORDERED LIVER AND LIPID Performed By: #### L 500.4050, L500.4100, L501.4700, L100.0100 ####[facility] [address] [place], [address] Triglyceride [Mass/Vol] 71 mg/dL Normal [facility] Comment on above: Order Comment: DR. Niraj DANIELS ORDERED CBCD, CMP, AND LIPIDJOHN ROF ORDERED LIVER AND LIPID Result Comment: The drugs N-Acetylcysteine and Metamizole may falsely depress this assay. Serum Triglycerides Reference Interval Normal <150 mg/dL Borderline high 150 - 199 mg/dL High 200 - 499 mg/dL Very High > or = 500 mg/dL Performed By: #### L 500.4050, L500.4100, L501.4700, L100.0100 ####[facility] [address] [place], [address] Liver Profileon 04-25-2024 ALB Normal 3.2-5.0 [facility] Comment on above: Result Comment: ADDE D TO DR. BACA Performed By: #### L 500.3400 ####[facility] [address], [address] ALK P Normal 45-117 [facility] Comment on above: Result Comment: ADDE D TO DR. BACA Performed By: #### L 500.3400 ####[facility] [address] [place], [address] ALT Normal 13-56 [facility] Comment on above: Result Comment: ADDE D TO DR. BACA Performed By: #### L 500.3400 ####[facility] [address], [address] AST Normal 15-37 [facility] Comment on above: Result Comment: ADDE D TO DR. BACA Performed By: #### L 500.3400 ####[facility] [address] [place], [address] D BILI Normal 0.00-0.30 [facility] Comment on above: Result Comment: ADDE D TO DR. BACA Performed By: #### L 500.3400 ####[facility] [address] [place], [address] T BILI Normal 0.20-1.00 [facility] Comment on above: Result Comment: ADDE D TO DR. BACA Performed By: #### L 500.3400 ####[facility] [address] [place], [address] T PROT Normal 6.4-8.2 [facility] Comment on above: Result Comment: ADDE D TO DR. BACA Performed By: #### L 500.3400 ####[facility] [address] [place], [address] Office Visit Reporton 2024 Office Visit Report [facility] [address] [place] [address] OFFICE VISIT Date of Service: 04/25/24 MR#: [id number] Acct: [id number] Patient: MIGUEL MELVIN Rep #: [id number] : 1975 Provider: RICARDO NURSE Age/Sex: 48/F [place] [facility] Status: Signed Intake Vital Signs 04/20/24 17:54 [...] cinnamon Allergy (Verified 04/20/24 17:44) Rash 04/25/24 1757 Date Leanna Baca MD Cosigner Signature: Date (if applicable) CC: Normal [facility] Internal Medicine Office Vis britni 04-20-2024 Internal Medicine Office Visit [facility] [address] [place] [address] OFFICE VISIT Date of Service: 04/20/24 MR#: [id number] Acct: [id number] Name: MIGUEL MELVIN Rep #: [id number] : 1975 Provider: Dr. Leanna jesus MD Age/Sex: 48/F [place] [facility] [place] Status: Signed Intake Vital Signs 02/23/24 07:54 [...] MED FU Chief Complaint: Follow-up chronic conditions Registered Medical Assistant Required: No Accompanied by: Self Is patient [...] 2 diabetes mellitus Atherosclerotic heart disease of [place] coronary artery without angina pectoris URI (upper [...] abuse Surgical History Stented coronary artery (11/12/23) [place] teeth removed History of History of tubal [...] 5.9. S (more content not included)... Normal [facility] CNOVon 04-11-2024 [facility] Office Visit ([facility] ) MELVINMIGUEL DEAL ([id number]) 1975 F Date Time Provider Department 04/11/24 10:15 AM SHEYLA ALFONSO [facility] During your visit today, we recorded the following information about you: Temperature Pulse Respiration Blood pressure 97.6 degrees 68/minute 16/minute 118/72 Weight 110.8 kg Sheyal Alfonso APRN.PRE WAVE ASSEMBLER 04/11/2024 10:36 AM Signed Subjective Eye Problem [...] Tympanic mem (more content not included)... Normal [facility] MR/BMS.BPon 04-05-2024 MR/BMS.BP [facility] [address] [facility], [address] [place] [address] OFFICE VISIT Date of Service: 04/05/24 MR#: [id number] Acct: [id number] Name: MIGUEL MELVIN Rep #: [id number] : 1975 Provider: ROSHAN herzog Age/Sex: 48/F [place] [facility] [place] Status: Signed Intake Vital Signs 01/26/24 15:31 03/17/24 14:48 04/05/24 15:24 Height 5 ft 6 in 5 ft 6 in 5 ft 6 in BP Intake Visit Reasons: 10wfu Allergies cinnamon Allergy (Verified 01/26/24 15:33) Rash PFSH Medical History Heart attack UTI (urinary tract infection) Cough Borderline type 2 diabetes mellitus Atherosclerotic heart disease of [place] coronary artery without angina pectoris URI (upper [...] abuse Surgical History Stented coronary artery (11/12/23) [place] teeth removed History of History of tubal [...] tired more often. Has been working on [employer] and this has been exhausting for her. [...] no hallucinati (more content not included)... Normal [facility] MR/BMS.BPon 01-26-2024 MR/BMS.BP [facility] [address] [facility], [address] [place] [address] OFFICE VISIT Date of Service: 01/26/24 MR#: [id number] Acct: [id number] Name: MIGUEL MELVIN Rep #: [id number] : 1975 Provider: ROSHAN herzog Age/Sex: 48/F Location[place] [facility] [place] Status: Signed Intake Vital Signs 12/15/23 13:26 [...] 3 mg PO DAILY mental health #30 01/26/24 01/26/24 Rx caps escitalopram oxalate 10 mg tablet 10 mg PO DAILY depression #90 tabs 01/26/24 01/26/24 Rx PFSH Medical History Heart attack UTI (urinary tract infection) Cough Borderline type 2 diabetes mellitus Atherosclerotic heart disease of [place] coronary artery without angina pectoris URI (upper [...] abuse Surgical History Stented coronary artery (11/12/23) [place] teeth removed History of History of tubal [...] she has returned to work after her [place]. Did recently have an episode at work where she was clammy, lightheaded, and was feeling overall unwell. Did have physical therapy that day and they monitored her heart during PT and they sent her to the ED and they stated everything normal. Has been doing well on her diet and has only had red meat 2x since her [place]. (more content not included)... Normal [facility] 12 Lead EKGon 01-13-2024 12 Lead EKG [facility] [address] [place] [address] 12 Lead EKG 01/13/24 1611 MR#: [id number] Acct: [id number] Name: MIGUEL MELVIN Rep #: [id number] : 1975 48 From: Fracisco Olivera MD [...] Abnormal ECG Confirmed by FRACISCO OLIVERA MD ([id number]), assignment desk editor MIKA ULLOA ([id number]) on 01/14/2024 9:25:00 AM Referred By: Confirmed By:FRACISCO OLIVERA MD 01/14/24 0925 Date Fracisco Olivera MD CC: Dr. Leanna Baca MD; Dr. Christoph Swartz DO Signed Normal [facility] Basic Metabolic Profile (BMP )on 01-13-2024 BUN/CRE 11.2 RATIO Normal - [facility] Comment on above: Order Comment: 1Y Performed By: #### L 100.0100, L500.2500, L501.5425, L300.8000 ####[facility] [address] [place], [address] CA,Total 8.9 mg/dL Normal 8.5-10.1 [facility] Comment on above: Order Comment: 1Y Performed By: #### L 100.0100, L500.2500, L501.5425, L300.8000 ####[facility] [address] [place], [address] Chloride [Moles/Vol] 110 mmol/L High 98-107 [facility] Comment on above: Order Comment: 1Y Performed By: #### L 100.0100, L500.2500, L501.5425, L300.8000 ####[facility] [address] [place], [address] CO2 [Moles/Vol] 23.0 mmol/L Normal 21.0-32.0 [facility] Comment on above: Order Comment: 1Y Performed By: #### L 100.0100, L500.2500, L501.5425, L300.8000 ####[facility] [address] [place], [address] Creatinine [Mass/Vol] 0.98 mg/dL Normal 0.55-1.02 [facility] Comment on above: Order Comment: 1Y Result Comment: The validity of the calculated GFR GFRAA in patients over 70 years has not been determined. Clinical correlation is essential. Performed By: #### L 100.0100, L500.2500, L501.5425, L300.8000 ####[facility] [address] [place], [address] ECRCL 92.06 ml/min Normal [facility] Comment on above: Order Comment: 1Y Performed By: #### L 100.0100, L500.2500, L501.5425, L300.8000 ####[facility] [address] [place], [address] EST GFR - AA 78 mL/min Normal >60 [facility] Comment on above: Order Comment: 1Y Result Comment: Afri can [place]ral[place] GFR Calc Performed By: #### L 100.0100, L500.2500, L501.5425, L300.8000 ####[facility] [address] [place], [address] GAP 6 Normal 5-15 [facility] Comment on above: Order Comment: 1Y Performed By: #### L 100.0100, L500.2500, L501.5425, L300.8000 ####[facility] [address] [place], [address] GFR/1.73 sq M.predicted among non-blacks MDRD (S/P/Bld) [Vol rate/Area] 65 mL/min/{1.73_m2} Normal >60 [facility] Comment on above: Order Comment: 1Y Result Comment: Non- GFR Calc Performed By: #### L 100.0100, L500.2500, L501.5425, L300.8000 ####[facility] [address] [place], [address] Glucose [Mass/Vol] 107 mg/dL High 74-106 [facility] Comment on above: Order Comment: 1Y Result Comment: Fast ing Glucose result from 100 to 125 mg/dL suggests IMPAIRED HOMEOSTASIS per A.D.A. criteria. Performed By: #### L 100.0100, L500.2500, L501.5425, L300.8000 ####[facility] [address] [place], [address] Potassium [Moles/Vol] 3.9 mmol/L Normal 3.5-5.1 [facility] Comment on above: Order Comment: 1Y Performed By: #### L 100.0100, L500.2500, L501.5425, L300.8000 ####[facility] [address] [place], [address] Sodium [Moles/Vol] 138 mmol/L Normal 136-145 [facility] Comment on above: Order Comment: 1Y Performed By: #### L 100.0100, L500.2500, L501.5425, L300.8000 ####[facility] [address] [place], [address] Urea nitrogen [Mass/Vol] 11 mg/dL Normal 7-18 [facility] Comment on above: Order Comment: 1Y Performed By: #### L 100.0100, L500.2500, L501.5425, L300.8000 ####[facility] [address] [place], [address] CBC W/Diff, Automatedon 10-2 -2023 Absolute Lymph 1.98 X10 3/uL Normal 0.83-4.51 [facility] Comment on above: Performed By: #### L 100.0100, L500.2500, L501.5425, L300.8000 ####[facility] [address] [place], [address] Absolute Neut 4.0 X10 3/uL Normal 2.0-7.7 [facility] Comment on above: Performed By: #### L 100.0100, L500.2500, L501.5425, L300.8000 ####[facility] [address] [place], [address] Basophils/100 WBC (Bld) 0.6 % Normal 0-1 [facility] Comment on above: Performed By: #### L 100.0100, L500.2500, L501.5425, L300.8000 ####[facility] [address] [place], [address] Eosinophils/100 WBC (Bld) 1.9 % Normal 0-5 [facility] Comment on above: Performed By: #### L 100.0100, L500.2500, L501.5425, L300.8000 ####[facility] [address] [place], [address] Erythrocyte distribution width (RBC) [Ratio] 17.8 % High 11.6-14.6 [facility] Comment on above: Performed By: #### L 100.0100, L500.2500, L501.5425, L300.8000 ####[facility] [address] [place], [address] Hematocrit (Bld) [Volume fraction] 36.5 % Low 37-47 [facility] Comment on above: Performed By: #### L 100.0100, L500.2500, L501.5425, L300.8000 ####[facility] [address] [place], [address] Hemoglobin (Bld) [Mass/Vol] 11.0 g/dL Low 12.0-15.0 [facility] Comment on above: Performed By: #### L 100.0100, L500.2500, L501.5425, L300.8000 ####[facility] [address] [place], [address] IG% 0.100 Normal 0.0-0.9 [facility] Comment on above: Result Comment: IG% - Immature Granulocytes (promyelocytes, myelocytes and metamyelocytes) > 1% indicates that a LEFT SHIFT is Present. Performed By: #### L 100.0100, L500.2500, L501.5425, L300.8000 ####[facility] [address] [place], [address] Lymphocytes/100 WBC (Bld) 29.4 % Normal 19-41 [facility] Comment on above: Performed By: #### L 100.0100, L500.2500, L501.5425, L300.8000 ####[facility] [address] [place], [address] MCH (RBC) [Entitic mass] 23.5 pg Low 27.0-32.0 [facility] Comment on above: Performed By: #### L 100.0100, L500.2500, L501.5425, L300.8000 ####[facility] [address] [place], [address] MCHC (RBC) [Mass/Vol] 30.1 g/dL Low 32-36 [facility] Comment on above: Performed By: #### L 100.0100, L500.2500, L501.5425, L300.8000 ####[facility] [address] [place], [address] MCV (RBC) [Entitic vol] 77.8 fL Low 81-99 [facility] Comment on above: Performed By: #### L 100.0100, L500.2500, L501.5425, L300.8000 ####[facility] [address] [place], [address] Monocytes/100 WBC (Bld) 8.3 % Normal 0-10 [facility] Comment on above: Performed By: #### L 100.0100, L500.2500, L501.5425, L300.8000 ####[facility] [address] [place], [address] Neutrophils/100 WBC (Bld) 59.7 % Normal 47-70 [facility] Comment on above: Performed By: #### L 100.0100, L500.2500, L501.5425, L300.8000 ####[facility] [address] [place], [address] Nucleated RBC (Bld) [#/Vol] 0 10*3/uL Normal 0-5 [facility] Comment on above: Performed By: #### L 100.0100, L500.2500, L501.5425, L300.8000 ####[facility] [address] [place], [address] Platelet mean volume (Bld) [Entitic vol] 11.1 fL Normal 6.2-12.0 [facility] Comment on above: Performed By: #### L 100.0100, L500.2500, L501.5425, L300.8000 ####[facility] [address] [place], [address] Platelets (Bld) [#/Vol] 358 10*3/uL Normal 150-450 [facility] Comment on above: Performed By: #### L 100.0100, L500.2500, L501.5425, L300.8000 ####[facility] [address] [place], [address] RBC (Bld) [#/Vol] 4.69 10*6/uL Normal 4.2-5.4 [facility] Comment on above: Performed By: #### L 100.0100, L500.2500, L501.5425, L300.8000 ####[facility] [address] [place], [address] RDW SD 49.8 fl High 35.1-43.9 [facility] Comment on above: Performed By: #### L 100.0100, L500.2500, L501.5425, L300.8000 ####[facility] [address] [place], [address] WBC (Bld) [#/Vol] 6.7 10*3/uL Normal 4.4-11.0 [facility] Comment on above: Performed By: #### L 100.0100, L500.2500, L501.5425, L300.8000 ####[facility] [address] [place], [place], [address] CTA Chest W/WO Contraston CTA Chest W/WO Contrast [facility] Imaging Services [address] [place], [place] [address] CTA Chest W/WO Contrast MR#: [id number] Acct: [id number] Name: MIGUEL MELVIN Rep #: [id number] : 1975 F 48 From: Gil Hernández DO PCP: Dr. Leanna Baca MD Status: [facility] Study: CTA Chest W/WO Contrast Date of Exam: 01/13/24 Exam# [id number] Ordering Dr: Christoph Swartz DO [id number] STUDY: CTA CHEST REASON FOR EXAM: Female, [...] DO at 18:01 EDT , CC: Dr. Leanna Baca MD; Dr. Christoph Swartz DO Crutch Maker: Signed Normal [facility] Chest PA and Lateralon 01-12 Chest PA and Lateral [facility] Imaging Services [address] [place] [id number] Chest PA and Lateral MR#: [id number] Acct: [id number] Name: MIGUEL MELVIN Rep #: [id number] : 1975 F 48 From: Gil Hernández DO PCP: Dr. Leanna Baca MD Status: [facility] ER Study: Chest PA and Lateral Date of Exam: 01/13/24 Exam# [id number] Ordering Dr: Christoph Swartz DO [id number] INDICATION: chest pain EXAMINATION/TECHNIQUE : X-RAY - [...] Signed: Gil Hernández DO at 16:54 EDT , CC: Dr. Leanna Baca MD; Dr. Christoph Swartz DO Crutch Maker: Signed Normal [facility] D-Dimer Quantitative (DVT/PE )on 01-13-2024 D-DIMER QUANT 3.21 FEU/ug/m Invalid Interpretation Code 0.27-0.49 [facility] Comment on above: Order Comment: CRITI NEETU VALUE CALLED TO SONAL ALBER01/13/24 [address].RESULTS READ BACK BY SAME. Result Comment: D-Di bailey ELEVATED (>0.49): Additional studies and clinical assessments are indicated to conclude diagnosis of: Deep Vein Thrombosis (DVT) or Pulmonary Embolism (PE) Performed By: #### L 100.0100, L500.2500, L501.5425, L300.8000 ####[facility] [address] [facility] [place], [address] Emergency Department Summary on 01-13-2024 Emergency Department Summary [facility] Medical Records Department [address] [place] [address] Emergency Department Summary 01/13/24 MR#: [id number] Acct: [id number] Name: MIGUEL MELVIN Rep #: [id number] : 1975 48 From: Christoph Swartz DO PCP: Dr. Leanna Baca MD Status:DEP ER Location: ED HPI [...] in her chest. Patient had a recent AZ and had recent stent placement 2 months [...] 2 diabetes mellitus Atherosclerotic heart disease of [place] coronary artery without angina pectoris URI (upper [...] 3 mg PO DAILY mental health #30 09/17/24 Unknown Rx caps hydroxyzine HCl 25 mg [...] anxiety Surgical History Stented coronary artery (11/12/23) [place] teeth removed History of History of tubal [...] history: single (more content not included)... Normal [facility] L501.4020on 01-13-2024 TROPONIN-I HS 4 pg/mL Normal 3.0-54.0 [facility] Comment on above: Result Comment: Sonya martin Note: New Test Units and Gender Specific Reference Ranges. For more information see Policy Stat Procedure [place] High Sensitivity Troponin (TNIH) and attachments. Performed By: #### L 501.4020 ####[facility] [address] [place], [address] L501.5425on 01-13-2024 TROPONIN-I HS 4 pg/mL Normal 3.0-54.0 [facility] Comment on above: Order Comment: 1Y Result Comment: Sonya martin Note: New Test Units and Gender Specific Reference Ranges. For more information see Policy Stat Procedure [place] High Sensitivity Troponin (TNIH) and attachments. Performed By: #### L 100.0100, L500.2500, L501.5425, L300.8000 ####[facility] [address] [place], [place], [address] MR/BMS.BPon 12-15-2023 MR/BMS.BP [facility] [address] [facility], [address] [place], [place] [address] OFFICE VISIT Date of Service: 12/15/23 MR#: [id number] Acct: [id number] Name: MIGUEL MELVIN Rep #: [id number] : 1975 Provider: ROSHAN herzog Age/Sex: 48/F Location[place] [facility] Status: Signed Intake Vital Signs 09/02/23 13:18 [...] aspirin 81 mg tablet,delayed 81 mg PO DAILY@00 #90 tabs 11/30/23 12/15/23 Rx release atorvastatin [...] 2 diabetes mellitus Atherosclerotic heart disease of [place] coronary artery without angina pectoris URI (upper [...] abuse Surgical History Stented coronary artery (11/12/23) [place] teeth removed History of History of tubal [...] by: patient Chief complaint: Depression/Anxiety HPI: Rosa Flores Olegario is a 48 year old female patient presenting today for a follow up evaluation. Patient has had a large amount of health concerns lately. Did have bronchitis, pneumonia, and an AZ. Has changes her diet to work on lowering carbs, sodium, and lower cholesterol. Has stopped smoking on 11/11 when she had her AZ. Does feel she is sleeping too much [...] week as he may spend time in group home. Previous similar episode: (more content not included)... [facility] (UCW[facility] ) MIGUEL MELVIN ([id number]) 1975 F Date Time Provider Department 11/07/23 12:45 PM JAYDA PEÑALOZA [facility] During your visit today, we recorded the following information about you: Temperature Pulse Respiration Blood pressure 97.8 degrees 69/minute 18/minute 132/61 Weight 115.2 kg Jayda Peñaloza APRN.CNP 11/07/2023 1:09 PM Signed CC: Patient presents [...] Disease Paternal (more content not included)... Normal [facility] 11-02-2023 [facility] Office Visit (UCWSTR ) MIGUEL MELVIN ([id number]) 1975 F Date Time Provider Department 11/02/23 1:15 PM SHEYLA ALFONSO [facility] During your visit today, we recorded the following information about you: Temperature Pulse Respiration Blood pressure 97.3 degrees 97/minute 18/minute 118/74 Weight 113.8 kg Sheyla Alfonso APRN.CNP 11/02/2023 1:27 PM Addendum ASSESSMENT/PLAN: 1. Viral [...] Discussed expected course of illness Sheyla Alfonso APRN.CNP ACUTE BRONCHITIS: You have acute bronchitis. This [...] 3 days of proper treatment. Sheyla Alfonso APRN.PRE WAVE ASSEMBLER 11/02/2023 1:31 PM Signed Subjective Cough Associated [...] HFA (PROVEN (more content not included)... Normal [facility] XR Chest PA and Lateralon IMPRESSION: Stable exam with no acute radiographic abnormality. Crutch Maker: ELIZABETH Transcribe Date/Time: Oct 27 2023 1:10P Dictated by : NIDIA NARANJO MD This examination was interpreted and the report reviewed and electronically signed by: NIDIA NARANJO MD on Oct 27 2023 1:10PM [facility] DIVISION OF RADIOLOGY * * *Final Report* [...] soft tissues: Unremarkable. DIVISION OF RADIOLOGY Provider, [facility] - 10/27/2023 * * *Final Report* [...] Stable exam with no acute radiographic abnormality. Crutch Maker: PSCB Transcribe Date/Time: Oct 27 2023 1:10P Dictated by : NIDIA NARANJO MD This examination was interpreted and the report reviewed and electronically signed by: NIDIA NARANJO MD on Oct 27 2023 1:10PM EST [facility] Radiology Study observation (narrative) [facility] XR Chest PA and LateralOrder ed By: Ccf Provider on 10-27-2023 [facility] Absolute lymphocyte countOrd ered By: Leanna Baca on 01-21-2023 Lymphocytes Auto (Unsp spec) [#/Vol] 2.08 10*3/uL 0.83-4.51 [facility] Basophil percentageOrdered B y: Leanna Baca on 01-21-2023 Basophils/100 WBC (Bld) 0.8 % 0-1 [facility] Chloride [Moles/Vol] 104 mmol/L 98-107 [facility] Eosinophils/100 WBC (Bld) 3.1 % 0-5 [facility] Glucose [Mass/Vol] 107 mg/dL 74-106 [facility] Comment on above: Fasting Glucose resu lt from 100 to 125 mg/dL suggests IMPAIRED HOMEOSTASIS per A.D.A. criteria. Neutrophils (Bld) [#/Vol] 4.3 10*3/uL 2.0-7.7 [facility] Neutrophils/100 WBC (Bld) 59.8 % 47-70 [facility] Potassium [Moles/Vol] 3.5 mmol/L 3.5-5.1 [facility] Sodium [Moles/Vol] 136 mmol/L 136-145 [facility] WBC (Bld) [#/Vol] 7.1 10*3/uL 4.4-11.0 [facility] Blood erythrocytes count (nu mber/volume)Ordered By: Leanna Baca on 01-21-2023 RBC (Bld) [#/Vol] 5.41 10*6/uL 4.2-5.4 [facility] Blood hemoglobin measurement (mass/volume)Ordered By: Leanna Baca on 01-21-2023 Hemoglobin (Bld) [Mass/Vol] 14.5 g/dL 12.0-15.0 [facility] Blood lymphocytes/100 leukoc ytesOrdered By: Leanna Baca on 01-21-2023 Lymphocytes/100 WBC (Bld) 29.1 % 19-41 [facility] Blood monocytes/100 leukocyt esOrdered By: Leanna Baca on 01-21-2023 Monocytes/100 WBC (Bld) 6.9 % 0-10 [facility] Blood platelet mean volumeOr dered By: Leanna Bcaa on 01-21-2023 Platelet mean volume (Bld) [Entitic vol] 11.5 fL 6.2-12.0 [facility] Determination of erythrocyte mean corpuscular volume (MCV)Ordered By: Leanna Baca on 01-21-2023 MCV (RBC) [Entitic vol] 83.5 fL 81-99 [facility] Hematocrit Auto (Bld) [Volum e fraction]Ordered By: Leanna Baca on 01-21-2023 Hematocrit (Bld) [Volume fraction] 45.2 % 37-47 [facility] Laboratory - Chemistry and C hemistry - challengeOrdered By: Leanna Baca on 01-21-2023 CO2 [Moles/Vol] 25.0 mmol/L 21.0-32.0 [facility] Urea nitrogen/Creatinine [Mass ratio] 8.5 mg/mg 10-20 [facility] Laboratory - Hematology and Cell countsOrdered By: Leanna Baca on 01-21-2023 Erythrocyte distribution width (RBC) [Entitic vol] 40.6 fL 35.1-43.9 [facility] Erythrocyte distribution width (RBC) [Ratio] 13.4 % 11.6-14.6 [facility] Immature granulocytes/100 WBC (Bld) 0.300 % 0.0-0.9 [facility] Comment on above: IG% - Immature Granu locytes (promyelocytes, myelocytes and metamyelocytes) > 1% indicates that a LEFT SHIFT is Present. MCH (RBC) [Entitic mass] 26.8 pg 27.0-32.0 [facility] Nucleated RBC/100 WBC (Bld) [Ratio] 0 % 0-5 [facility] MCHC Auto (RBC) [Mass/Vol]Or dered By: Leanna Baca on 01-21-2023 MCHC (RBC) [Mass/Vol] 32.1 g/dL 32-36 [facility] No Panel InformationOrdered By: Leanna Baca on 01-21-2023 Estimated GFR (MDRD) Amer 82 mL/min >60 [facility] Comment on above: GFR Calc Estimated GFR (MDRD) Non-Af Amer 68 mL/min >60 [facility] Comment on above: Non- GFR Calc Platelets bldOrdered By: Jamil Baca on 01-21-2023 Platelets (Bld) [#/Vol] 296 10*3/uL 150-450 [facility] Serum or plasma calcium jil urement (mass/volume)Ordered By: Leanna Baca on 01-21-2023 Calcium [Mass/Vol] 9.0 mg/dL 8.5-10.1 [facility] Serum or plasma creatinine m easurement (mass/volume)Ordered By: Leanna Baca on 01-21-2023 Creatinine [Mass/Vol] 0.95 mg/dL 0.55-1.02 [facility] Comment on above: The validity of the calculated GFR & GFRAA in patients over 70 years has not been determined. Clinical correlation is essential. Serum or plasma urea nitroge n measurement (mass/volume)Ordered By: Leanna Baca on 01-21-2023 Urea nitrogen [Mass/Vol] 8 mg/dL 7- [facility] Thin prep Papanicolaou smear with manual screeningOrdered By: matthew Baca on 01-21-2023 Thin prep Papanicolaou smear with manual screening 7 - [facility] Laboratory - Hematology and Cell countson 08-13-2022 HbA1c (Bld) [Mass fraction] 5.7 % 4.2-6.3 [facility] Absolute lymphocyte countOrd ered By: Dr. Baca on 06-02-2022 Lymphocytes Auto (Unsp spec) [#/Vol] 1.92 10*3/uL 0.83-4.51 [facility] Basophil percentageOrdered B y: Dr. Baca on 06-02-2022 Basophils/100 WBC (Bld) 0.5 % 0-1 [facility] Bilirubin [Mass/Vol] 0.50 mg/dL 0.20-1.00 [facility] Comment on above: For patients on eltr ombopag therapy, use of Dimension [place] TBIL is not recommended. Chloride [Moles/Vol] 104 mmol/L 98-107 [facility] Cholesterol [Mass/Vol] 182 mg/dL <200 [facility] Comment on above: <200 mg/dL Desirable 200-240 mg/dL Borderline >240 mg/dL High Risk Eosinophils/100 WBC (Bld) 1.9 % 0-5 [facility] Glucose [Mass/Vol] 104 mg/dL 74-106 [facility] Comment on above: Fasting Glucose resu lt from 100 to 125 mg/dL suggests IMPAIRED HOMEOSTASIS per A.D.A. criteria. Neutrophils (Bld) [#/Vol] 3.7 10*3/uL 2.0-7.7 [facility] Neutrophils/100 WBC (Bld) 59.1 % 47-70 [facility] Potassium [Moles/Vol] 3.9 mmol/L 3.5-5.1 [facility] Protein [Mass/Vol] 7.3 g/dL 6.4-8.2 [facility] Sodium [Moles/Vol] 135 mmol/L 136-145 [facility] Triglyceride [Mass/Vol] 70 mg/dL <199 [facility] Comment on above: The drugs N-Acetylcy steine and Metamizole may falsely depress this assay.Serum Triglycerides Reference Interval Normal <150 mg/dL Borderline high 150 - 199 mg/dL High 200 - 499 mg/dL Very High > or = 500 mg/dL WBC (Bld) [#/Vol] 6.3 10*3/uL 4.4-11.0 [facility] Blood erythrocytes count (nu mber/volume)Ordered By: Dr. Baca on 06-02-2022 RBC (Bld) [#/Vol] 5.29 10*6/uL 4.2-5.4 [facility] Blood hemoglobin measurement (mass/volume)Ordered By: Dr. Baca on 06-02-2022 Hemoglobin (Bld) [Mass/Vol] 15.1 g/dL 12.0-15.0 [facility] Blood lymphocytes/100 leukoc ytesOrdered By: Dr. Baca on 06-02-2022 Lymphocytes/100 WBC (Bld) 30.4 % 19-41 [facility] Blood monocytes/100 leukocyt esOrdered By: Dr. Baca on 06-02-2022 Monocytes/100 WBC (Bld) 6.8 % 0-10 [facility] Blood platelet mean volumeOr dered By: Dr. Baca on 06-02-2022 Platelet mean volume (Bld) [Entitic vol] 10.9 fL 6.2-12.0 [facility] Determination of erythrocyte mean corpuscular volume (MCV)Ordered By: Dr. Baca on 06-02-2022 MCV (RBC) [Entitic vol] 86.6 fL 81-99 [facility] Hematocrit Auto (Bld) [Volum e fraction]Ordered By: Dr. Baca on 06-02-2022 Hematocrit (Bld) [Volume fraction] 45.8 % 37-47 [facility] Laboratory - Chemistry and C hemistry - challengeOrdered By: Dr. Baca on 06-02-2022 ALP [Catalytic activity/Vol] 109 U/L 45-117 [facility] ALT [Catalytic activity/Vol] 25 U/L 13-56 [facility] CO2 [Moles/Vol] 23.0 mmol/L 21.0-32.0 [facility] Free T4 [Mass/Vol] 1.09 ng/dL 0.76-1.46 [facility] Globulin (S) [Mass/Vol] 3.6 g/dL 2.2-4.2 [facility] Urea nitrogen/Creatinine [Mass ratio] 8.1 mg/mg 10-20 [facility] Laboratory - Hematology and Cell countsOrdered By: Dr. Baca on 06-02-2022 Erythrocyte distribution width (RBC) [Entitic vol] 39.0 fL 35.1-43.9 [facility] Erythrocyte distribution width (RBC) [Ratio] 12.2 % 11.6-14.6 [facility] Immature granulocytes/100 WBC (Bld) 1.300 % 0.0-0.9 [facility] Comment on above: IG% - Immature Granu locytes (promyelocytes, myelocytes and metamyelocytes) > 1% indicates that a LEFT SHIFT is Present. MCH (RBC) [Entitic mass] 28.5 pg 27.0-32.0 [facility] Nucleated RBC/100 WBC (Bld) [Ratio] 0 % 0-5 [facility] MCHC Auto (RBC) [Mass/Vol]Or dered By: Dr. Baca on 06-02-2022 MCHC (RBC) [Mass/Vol] 33.0 g/dL 32-36 [facility] No Panel InformationOrdered By: Dr. Baca on 06-02-2022 Estimated GFR (MDRD) Amer 78 mL/min >60 [facility] Comment on above: GFR Calc Estimated GFR (MDRD) Non-Af Amer 65 mL/min >60 [facility] Comment on above: Non- GFR Calc Thyroid Stimulating Hormone (TSH) 1.00 uIU/mL 0.358-3.74 [facility] Platelets bldOrdered By: Dr. Baca on 06-02-2022 Platelets (Bld) [#/Vol] 267 10*3/uL 150-450 [facility] Serum or plasma albumin jil urement (mass/volume)Ordered By: Dr. Baca on 06-02-2022 Albumin [Mass/Vol] 3.7 g/dL 3.2-5.0 [facility] Serum or plasma albumin/glob ulin mass ratioOrdered By: Dr. Baca on 06-02-2022 Albumin/Globulin [Mass ratio] 1.0 {ratio} 0.9-2.4 [facility] Serum or plasma calcium jil urement (mass/volume)Ordered By: Dr. Baca on 06-02-2022 Calcium [Mass/Vol] 8.8 mg/dL 8.5-10.1 [facility] Serum or plasma cholesterol in HDL measurement (mass/volume)Ordered By: Dr. Baca on 06-02-2022 Cholesterol in HDL [Mass/Vol] 55 mg/dL >40 [facility] Comment on above: The drugs N-Acetylcy steine and Metamizole may falsely depress this assay. Reference Range HDL <40 mg/dL Low HDL Cholesterol HDL >or= 60 mg/dL High HDL Cholesterol Serum or plasma cholesterol in VLDL measurement (mass/volume)Ordered By: Dr. Baca on 06-02-2022 Cholesterol in VLDL [Mass/Vol] 14 mg/dL 5-40 [facility] Serum or plasma creatinine m easurement (mass/volume)Ordered By: Dr. Baca on 06-02-2022 Creatinine [Mass/Vol] 0.99 mg/dL 0.55-1.02 [facility] Comment on above: The validity of the calculated GFR & GFRAA in patients over 70 years has not been determined. Clinical correlation is essential. Serum or plasma low density lipoprotein (LDL) cholesterol measurement (mass/volume)Ordered By: Dr. Baca on 06-02-2022 Cholesterol in LDL [Mass/Vol] 113 mg/dL 0-130 [facility] Serum or plasma urea nitroge n measurement (mass/volume)Ordered By: Dr. Baca on 06-02-2022 Urea nitrogen [Mass/Vol] 8 mg/dL 7-18 [facility] Thin prep Papanicolaou smear with manual screeningOrdered By: Dr. Baca on 06-02-2022 Thin prep Papanicolaou smear with manual screening 11 U/L 15-37 [facility] Thin prep Papanicolaou smear with manual screening 8 5-15 [facility] Vital Signs Date Time Vital Sign Value Performing Clinician Facility 05-09-2024 13:42-0500 Body mass index (BMI) [Ratio] 39.48 kg/m2 Jose Manuel Clutter PA-C Work Phone: [facility] 05-09-2024 13:42-0500 Body temperature 97 [degF] Jose Manuel Clutter PA-C Work Phone: [facility] 05-09-2024 13:42-0500 Body weight 113.1 kg Jose Manuel Clutter PA-C Work Phone: [facility] 05-09-2024 13:42-0500 Diastolic blood pressure 82 mm[Hg] Jose Manuel Clutter PA-C Work Phone: [facility] 05-09-2024 13:42-0500 Heart rate 60 /min Jose Manuel Clutter PA-C Work Phone: [facility] 05-09-2024 13:42-0500 Respiratory rate 16 /min Jose Manuel Clutter PA-C Work Phone: [facility] 05-09-2024 13:42-0500 SaO2% (BldA) [Mass fraction] 98 % Jose Manuel Clutter PA-C Work Phone: [facility] 05-09-2024 13:42-0500 Systolic blood pressure 136 mm[Hg] Jose Manuel Clutter PA-C Work Phone: [facility] 04-11-2024 10:22-0500 Body mass index (BMI) [Ratio] 38.68 kg/m2 Sheyla Alfonso APRN.CNP Work Phone: [facility] 04-11-2024 10:22-0500 Body temperature 97.59 [degF] Sheyla Alfonso APRN.CNP Work Phone: [facility] 04-11-2024 10:22-0500 Body weight 110.8 kg Sheyla Praisler-Wood HEARING STENOGRAPHER.PRE WAVE ASSEMBLER Work Phone: [facility] 04-11-2024 10:22-0500 Diastolic blood pressure 72 mm[Hg] Sheyla Praisler-Wood HEARING STENOGRAPHER.PRE WAVE ASSEMBLER Work Phone: [facility] 04-11-2024 10:22-0500 Heart rate 68 /min Sheyla Praisler-Wood HEARING STENOGRAPHER.PRE WAVE ASSEMBLER Work Phone: [facility] 04-11-2024 10:22-0500 Respiratory rate 16 /min Sheyla Praisler-Wood HEARING STENOGRAPHER.PRE WAVE ASSEMBLER Work Phone: [facility] 04-11-2024 10:22-0500 SaO2% (BldA) [Mass fraction] 96 % Sheyla Praisler-Wood HEARING STENOGRAPHER.PRE WAVE ASSEMBLER Work Phone: [facility] 04-11-2024 10:22-0500 Systolic blood pressure 118 mm[Hg] Sheyla Praisler-Wood HEARING STENOGRAPHER.PRE WAVE ASSEMBLER Work Phone: [facility] 11-07-2023 12:57-0400 Body mass index (BMI) [Ratio] 40.22 kg/m2 Jayda Peñaloza APRN.PRE WAVE ASSEMBLER Work Phone: [facility] 11-07-2023 12:57-0400 Body temperature 97.81 [degF] Jayda Peñaloza APRN.PRE WAVE ASSEMBLER Work Phone: [facility] 11-07-2023 12:57-0400 Body weight 115.2 kg Jayda Peñaloza APRN.PRE WAVE ASSEMBLER Work Phone: [facility] 11-07-2023 12:57-0400 Diastolic blood pressure 61 mm[Hg] Jayda Peñlaoza APRN.PRE WAVE ASSEMBLER Work Phone: [facility] 11-07-2023 12:57-0400 Heart rate 69 /min Jayda Peñaloza APRN.PRE WAVE ASSEMBLER Work Phone: [facility] 11-07-2023 12:57-0400 Respiratory rate 18 /min Jayda Peñaloza HEARING STENOGRAPHER.PRE WAVE ASSEMBLER Work Phone: [facility] 11-07-2023 12:57-0400 SaO2% (BldA) [Mass fraction] 98 % Jayda Peñaloza HEARING STENOGRAPHER.PRE WAVE ASSEMBLER Work Phone: [facility] 11-07-2023 12:57-0400 Systolic blood pressure 132 mm[Hg] Jayda Peñaloza HEARING STENOGRAPHER.PRE WAVE ASSEMBLER Work Phone: [facility] 11-02-2023 13:06-0400 Body mass index (BMI) [Ratio] 39.73 kg/m2 Sheyla Praisler-Wood HEARING STENOGRAPHER.PRE WAVE ASSEMBLER Work Phone: [facility] 11-02-2023 13:06-0400 Body temperature 97.3 [degF] Sheyla Praisler-Wood HEARING STENOGRAPHER.PRE WAVE ASSEMBLER Work Phone: [facility] 11-02-2023 13:06-0400 Body weight 113.8 kg Sheyla Praisler-Wood HEARING STENOGRAPHER.PRE WAVE ASSEMBLER Work Phone: [facility] 11-02-2023 13:06-0400 Diastolic blood pressure 74 mm[Hg] Sheyla Praisler-Wood HEARING STENOGRAPHER.PRE WAVE ASSEMBLER Work Phone: [facility] 11-02-2023 13:06-0400 Heart rate 97 /min Sheyla Praisler-Wood HEARING STENOGRAPHER.PRE WAVE ASSEMBLER Work Phone: [facility] 11-02-2023 13:06-0400 Respiratory rate 18 /min Sheyla Praisler-Wood HEARING STENOGRAPHER.PRE WAVE ASSEMBLER Work Phone: [facility] 11-02-2023 13:06-0400 SaO2% (BldA) [Mass fraction] 98 % Sheyla Praisler-Wood HEARING STENOGRAPHER.PRE WAVE ASSEMBLER Work Phone: [facility] 11-02-2023 13:06-0400 Systolic blood pressure 118 mm[Hg] Sheyla Praisler-Wood HEARING STENOGRAPHER.PRE WAVE ASSEMBLER Work Phone: [facility] 10-29-2023 10:28-0400 Body mass index (BMI) [Ratio] 39.45 kg/m2 Humberto Miller HEARING STENOGRAPHER.PRE WAVE ASSEMBLER Work Phone: [facility] 10-29-2023 10:28-0400 Body temperature 100.51 [degF] Humberto Hernandezyesika HEARING STENOGRAPHER.PRE WAVE ASSEMBLER Work Phone: [facility] 10-29-2023 10:28-0400 Body weight 113 kg Humberto Hernandezyesika HEARING STENOGRAPHER.PRE WAVE ASSEMBLER Work Phone: [facility] 10-29-2023 10:28-0400 Diastolic blood pressure 80 mm[Hg] [facility] HEARING STENOGRAPHER.PRE WAVE ASSEMBLER Work Phone: [facility] 10-29-2023 10:28-0400 Heart rate 85 /min Humberto Hernandezyesika HEARING STENOGRAPHER.PRE WAVE ASSEMBLER Work Phone: [facility] 10-29-2023 10:28-0400 Respiratory rate 20 /min Humberto Hernandezyesika HEARING STENOGRAPHER.PRE WAVE ASSEMBLER Work Phone: [facility] 10-29-2023 10:28-0400 SaO2% (BldA) [Mass fraction] 96 % [facility] HEARING STENOGRAPHER.PRE WAVE ASSEMBLER Work Phone: [facility] 10-29-2023 10:28-0400 Systolic blood pressure 112 mm[Hg] Humberto Hernandezyesika HEARING STENOGRAPHER.PRE WAVE ASSEMBLER Work Phone: [facility] 10-27-2023 12:37-0400 Body mass index (BMI) [Ratio] 40.18 kg/m2 Jaylan Rand HEARING STENOGRAPHER.PRE WAVE ASSEMBLER Work Phone: [facility] 10-27-2023 12:37-0400 Body temperature 97.59 [degF] Jaylan Rand HEARING STENOGRAPHER.PRE WAVE ASSEMBLER Work Phone: [facility] 10-27-2023 12:37-0400 Body weight 115.1 kg Jaylan Rand HEARING STENOGRAPHER.PRE WAVE ASSEMBLER Work Phone: [facility] 10-27-2023 12:37-0400 Diastolic blood pressure 66 mm[Hg] Jaylan Rand HEARING STENOGRAPHER.PRE WAVE ASSEMBLER Work Phone: [facility] 10-27-2023 12:37-0400 Heart rate 88 /min Jaylan Giorgi HEARING STENOGRAPHER.PRE WAVE ASSEMBLER Work Phone: [facility] 10-27-2023 12:37-0400 Respiratory rate 16 /min Jaylan Rand HEARING STENOGRAPHER.PRE WAVE ASSEMBLER Work Phone: [facility] 10-27-2023 12:37-0400 SaO2% (BldA) [Mass fraction] 98 % Jaylan Rand HEARING STENOGRAPHER.PRE WAVE ASSEMBLER Work Phone: [facility] 10-27-2023 12:37-0400 Systolic blood pressure 112 mm[Hg] Jaylan Giorgi HEARING STENOGRAPHER.PRE WAVE ASSEMBLER Work Phone: [facility] 09-01-2023 12:31-0400 Body mass index (BMI) [Ratio] 40.49 kg/m2 Humberto Miller HEARING STENOGRAPHER.PRE WAVE ASSEMBLER Work Phone: [facility] 09-01-2023 12:31-0400 Body temperature 97.3 [degF] Humberto Miller HEARING STENOGRAPHER.PRE WAVE ASSEMBLER Work Phone: [facility] 09-01-2023 12:31-0400 Body weight 116 kg Humberto Miller HEARING STENOGRAPHER.PRE WAVE ASSEMBLER Work Phone: [facility] 09-01-2023 12:31-0400 Diastolic blood pressure 72 mm[Hg] Humberto Miller HEARING STENOGRAPHER.PRE WAVE ASSEMBLER Work Phone: [facility] 09-01-2023 12:31-0400 Heart rate 84 /min Humberto Angela HEARING STENOGRAPHER.PRE WAVE ASSEMBLER Work Phone: [facility] 09-01-2023 12:31-0400 Respiratory rate 18 /min Humberto Davidleyesika HEARING STENOGRAPHER.PRE WAVE ASSEMBLER Work Phone: [facility] 09-01-2023 12:31-0400 SaO2% (BldA) [Mass fraction] 98 % Humberto Miller HEARING STENOGRAPHER.PRE WAVE ASSEMBLER Work Phone: [facility] 09-01-2023 12:31-0400 Systolic blood pressure 124 mm[Hg] Humberto Miller HEARING STENOGRAPHER.PRE WAVE ASSEMBLER Work Phone: [facility] 08-14-2023 10:41-0400 Body mass index (BMI) [Ratio] 40.39 kg/m2 Jaylan Rand HEARING STENOGRAPHER.PRE WAVE ASSEMBLER Work Phone: [facility] 08-14-2023 10:41-0400 Body temperature 96.91 [degF] Jaylan Rand HEARING STENOGRAPHER.PRE WAVE ASSEMBLER Work Phone: [facility] 08-14-2023 10:41-0400 Body weight 115.7 kg Jaylan Rand HEARING STENOGRAPHER.PRE WAVE ASSEMBLER Work Phone: [facility] 08-14-2023 10:41-0400 Diastolic blood pressure 78 mm[Hg] Jaylan Rand HEARING STENOGRAPHER.PRE WAVE ASSEMBLER Work Phone: [facility] 08-14-2023 10:41-0400 Heart rate 66 /min Jaylan Rand HEARING STENOGRAPHER.PRE WAVE ASSEMBLER Work Phone: [facility] 08-14-2023 10:41-0400 Respiratory rate 16 /min Jaylan Rand HEARING STENOGRAPHER.PRE WAVE ASSEMBLER Work Phone: [facility] 08-14-2023 10:41-0400 SaO2% (BldA) [Mass fraction] 97 % Jaylan Rand HEARING STENOGRAPHER.PRE WAVE ASSEMBLER Work Phone: [facility] 08-14-2023 10:41-0400 Systolic blood pressure 138 mm[Hg] Jaylan Rand HEARING STENOGRAPHER.PRE WAVE ASSEMBLER Work Phone: [facility] 01-21-2023 13:18-0400 Body height 167.[address] Leanna Baca Work Phone: [facility] 01-21-2023 13:18-0400 Body mass index (BMI) [Ratio] 42.1 kg/m2 Dr. Leanna Baca Work Phone: [facility] 01-21-2023 13:18-0400 Body temperature 96.5 [degF] Dr. Leanna Baca Work Phone: [facility] 01-21-2023 13:18-0400 Body weight 118.[address] Leanna Baca Work Phone: [facility] 01-21-2023 13:18-0400 Diastolic blood pressure 80 mm[Hg] Dr. Leanna Baca Work Phone: [facility] 01-21-2023 13:18-0400 Heart rate 77 /min Dr. Leanna Baca Work Phone: [facility] 01-21-2023 13:18-0400 Respiratory rate 16 /min Dr. Leanna Baca Work Phone: [facility] 01-21-2023 13:18-0400 SaO2% (BldA) [Mass fraction] 98 % Dr. Leanna Baca Work Phone: [facility] 01-21-2023 13:18-0400 Systolic blood pressure 118 mm[Hg] Dr. Leanna Baca Work Phone: [facility] 09-29-2022 14:19-0400 Body height 167.[address] Leanna Baca Work Phone: [facility] 09-29-2022 14:19-0400 Body weight 122.[address] Leanna Baca Work Phone: [facility] 08-13-2022 14:33-0400 Body mass index (BMI) [Ratio] 42.9 kg/m2 Dr. Leanna Baca Work Phone: [facility] 08-13-2022 14:33-0400 Body temperature 97.3 [degF] Dr. Leanna Baca Work Phone: [facility] 08-13-2022 14:33-0400 Body weight 120.[address] Leanna Baca Work Phone: [facility] 08-13-2022 14:33-0400 Diastolic blood pressure 78 mm[Hg] Dr. Leanna Baca Work Phone: [facility] 08-13-2022 14:33-0400 Heart rate 77 /min Dr. Leanna Baca Work Phone: [facility] 08-13-2022 14:33-0400 Respiratory rate 14 /min Dr. Leanna Baca Work Phone: [facility] 08-13-2022 14:33-0400 SaO2% (BldA) [Mass fraction] 96 % Dr. Leanna Baca Work Phone: [facility] 08-13-2022 14:33-0400 Systolic blood pressure 120 mm[Hg] Dr. Leanna Baca Work Phone: [facility] 06-02-2022 11:04-0400 Body height 167.[address] Leanna Baca Work Phone: [facility] 06-02-2022 11:04-0400 Body mass index (BMI) [Ratio] 42.1 kg/m2 Dr. Leanna Baca Work Phone: [facility] 06-02-2022 11:04-0400 Body temperature 97.2 [degF] Dr. Leanna Baca Work Phone: [facility] 06-02-2022 11:04-0400 Body weight 118.[address] Leanna Baca Work Phone: [facility] 06-02-2022 11:04-0400 Diastolic blood pressure 82 mm[Hg] Dr. Leanna Baca Work Phone: [facility] 06-02-2022 11:04-0400 Heart rate 78 /min Dr. Leanna Baca Work Phone: [facility] 06-02-2022 11:04-0400 Respiratory rate 14 /min Dr. Leanna Baca Work Phone: [facility] 06-02-2022 11:04-0400 SaO2% (BldA) [Mass fraction] 97 % Dr. Leanna Baca Work Phone: [facility] 06-02-2022 11:04-0400 Systolic blood pressure 118 mm[Hg] Dr. Leanna Baca Work Phone: [facility] Encounters Encounter Date Encounter Type Care Provider Facility Start: 01-31-2025 ambulatory Efewongbe Oleghe Facili ty:[facility] Start: 12-12-2024 ambulatory Efewongbe Oleghe Facili ty:[facility] Start: 12-09-2024 ambulatory Efewongbe Oleghe Facili ty:[facility] Start: 11-28-2024 End: 11-28-2024 ambulatory Efewongbe Oleghe Facility:[facility] Start: 11-07-2024 End: 11-07-2024 ambulatory Efewongbe Oleghe Facility:[facility] Start: 11-04-2024 End: 11-04-2024 ambulatory Efewongbe Oleghe Facility:[facility] Start: 10-27-2024 End: 10-27-2024 ambulatory JAYDA PEÑALOZA Facility:[facility] Start: 09-29-2024 ambulatory Efewongbe Oleghe Facili ty:[facility] Start: 09-15-2024 End: 09-15-2024 ambulatory Efewongbe Oleghe Facility:[facility] Start: 08-30-2024 End: 08-31-2024 ambulatory Efewongbe Oleghe Facility:[facility] Start: 08-25-2024 ambulatory Efewongbe Oleghe Facili ty:[facility] Start: 08-22-2024 End: 08-22-2024 ambulatory Efewongbe Oleghe Facility:[facility] Start: 08-17-2024 ambulatory Efewongbe Oleghe Facili ty:[facility] Start: 08-16-2024 End: 08-16-2024 ambulatory Efewongbe Oleghe Facility:[facility] Start: 08-16-2024 End: 08-16-2024 ambulatory Efewongbe Oleghe Facility:[facility] Start: 08-01-2024 End: 08-01-2024 ambulatory Efewongbe Oleyange Facility:[facility] Start: 07-27-2024 End: 07-27-2024 ambulatory Efewongbe Oleyange Facility:[facility] Start: 07-13-2024 ambulatory Efewongbe Oleghe Facili ty:[facility] Start: 07-05-2024 ambulatory Efewongbe Oleghe Facili ty:[facility] Start: 06-20-2024 End: 06-20-2024 ambulatory Efnarenongbe Oleyange Facility:[facility] Start: 06-13-2024 End: 06-13-2024 ambulatory Efcandler hospitalkyleigh Oleyange Facility:[facility] Start: 06-06-2024 End: 06-06-2024 ambulatory Efcandler hospitalkyleigh Solorzanoe Facility:[facility] Start: 06-02-2024 ambulatory Efewongbe Oleyange Facili ty:[facility] Start: 05-30-2024 End: 05-30-2024 ambulatory na[place]igh Solor[place] Facility:[facility] Start: 05-26-2024 ambulatory Efnarenongkyleigh Solorzanoe Facili ty:[facility] Start: 05-23-2024 End: 05-23-2024 ambulatory Efna[place]kyleigh Solor[place]oe Facility:[facility] Start: 05-09-2024 End: 05-09-2024 ambulatory EFMATTHEW SOLORZANOE Facility:[facility] Start: 05-09-2024 End: 05-09-2024 Office outpatient visit 25 minutes Jose Manuel Ogden PA-C Work Phone: [facility] Comment on above: Urticaria of unknown origin (Primary Dx) Start: 04-25-2024 End: 04-25-2024 ambulatory Efnarenongbe Oleyange Facility:[facility] Start: 04-25-2024 End: 04-25-2024 ambulatory Efnarenongbe Oleyange Facility:[facility] Start: 04-20-2024 Encounter for genera l adult medical examination without abnormal findings matthew Solorzanoe [facility] Start: 04-20-2024 End: 04-20-2024 ambulatory Efnarenongkyleigh Solorzanoe [place] Start: 04-15-2024 ambulatory Efewongbe Phuong Facili ty:[facility] Start: 04-11-2024 End: 04-11-2024 ambulatory EFEWONGBE B OLEYANGE Facility:[facility] Start: 04-11-2024 End: 04-11-2024 Patient encounter procedure Sheyla Alfonso APRN.PRE WAVE ASSEMBLER Work Phone: [facility] Comment on above: Conjunctivitis of christy th eyes, unspecified conjunctivitis type (Primary Dx) Start: 04-05-2024 End: 04-05-2024 ambulatory Noemi Virgen [place] Start: 04-02-2024 ambulatory Nagapradee Nagajothi Fa cility:[facility] Start: 02-22-2024 End: 03-22-2024 [facility] Start: 02-12-2024 End: 02-20-2024 [facility] Start: 01-26-2024 End: 01-26-[facility] Start: 01-20-2024 End: 01-21-2024 ambulatory Nagapradee Nagajothi Facility:[facility] Start: 01-13-2024 End: 01-13-2024 Emergency department patient visit Christoph Swartz Facility:[facility] Start: 12-16-2023 End: 12-21-2023 [facility] Start: 12-15-2023 End: 12-15-2023 [facility] Start: 11-07-2023 End: 11-07-2023 ambulatory EFEWONGBE B OLEYANGE Facility:[facility] Start: 11-07-2023 End: 11-07-2023 Patient encounter procedure Jayda Peñaloza APRN.PRE WAVE ASSEMBLER Work Phone: [facility] Comment on above: Acute cough (Primary Dx); Respiratory infection Start: 11-02-2023 End: 11-02-2023 ambulatory EFEWONGBE B OLEYANGE Facility:[facility] Start: 11-02-2023 End: 11-02-2023 Patient encounter procedure Sheyla Alfonso APRN.PRE WAVE ASSEMBLER Work Phone: [facility] Comment on above: Viral bronchitis (Pr imary Dx); Otalgia of both ears Start: 10-29-2023 End: 10-29-2023 Office outpatient visit 25 minutes Humberto Angela HEARING STENOGRAPHER.PRE WAVE ASSEMBLER Work Phone: [facility] Comment on above: Lower respiratory tr act infection (Primary Dx) Start: 10-27-2023 End: 10-27-2023 Subsequent hospital visit by physician [facility] Work Phone: Radiology Comment on above: Acute cough [R05.1] Start: 10-27-2023 End: 10-27-2023 Patient encounter procedure Jaylan aRnd APRN.PRE WAVE ASSEMBLER Work Phone: [facility] Comment on above: URI, acute (Primary Dx); Acute cough Start: 09-01-2023 End: 09-01-2023 Office outpatient visit 15 minutes Humberto Miller HEARING STENOGRAPHER.PRE WAVE ASSEMBLER Work Phone: [facility] Comment on above: Nausea vomiting and diarrhea (Primary Dx) Start: 08-14-2023 End: 08-14-2023 Patient encounter procedure Jaylan Rand APRN.PRE WAVE ASSEMBLER Work Phone: [facility] Comment on above: Vomiting and diarrhe a (Primary Dx) Start: 01-21-2023 End: 01-21-[address] Leanna Baca Work Phone: [facility] Work Phone: Start: 01-21-2023 End: 01-21-[address] Leanna Baca Work Phone: [facility] Work Phone: Start: 09-29-2022 End: 10-20-[address] Leanna Baca Work Phone: [facility] Work Phone: Start: 09-29-2022 End: 10-20-[address] [facility] Work [facility]: Start: 08-13-2022 End: 08-13-[address] Leanna Baca Work Phone: [facility] Work Phone: Start: 06-02-2022 End: 06-02-[address] Leanna Baca Work Phone: [facility] Work Phone: Start: 06-02-2022 End: 06-02-[address] Leanna Baca Work Phone: [facility] Start: 02-05-2017 Ambulatory [facility] Facility :[facility] Procedures Date Procedure Procedure Detail Performing Clinician Start: 10-27-2023 Radiologic exam ches t 2 views Jaylan Rand APRN.PRE WAVE ASSEMBLER Work Phone: Start: 07-13-2017 Lipid 1996 panel - S tom or Plasma Jaylan Rand APRN.PRE WAVE ASSEMBLER Work Phone: Plan of Treatment Date Care Activity Detail Author Start: 05-20-2026 Urine microalbumin profile DTaP,Tdap,Td Vaccine (7 - Td or Tdap) [facility] Start: 08-27-2025 Screening for malign ant neoplasm of colon [facility] Start: 11-22-2023 Covid-19 Vaccine ( season) Covid-19 Vaccine () [facility] Start: 11-22-2023 Covid-19 Vaccine () Covid-19 Vaccine () [facility] Start: 11-22-2023 Influenza vaccination Influenza Vacc ine (#1) [facility] Start: 01-21-2023 Patient referral [facility] Work Phone: Start: 11-21-2022 Covid-19 Vaccine ( season) Covid-19 Vaccine (2022- season) [facility] Start: 08-14-2022 Patient referral [facility] Work Phone: Start: 07-13-2022 Lipid panel Lipid Screening [facility] Start: 2022 Diabetes Screening Diabetes Screenin g [facility] Start: 2022 Screening for malign ant neoplasm of colon [facility] Start: 06-02-2022 Patient referral [facility] Work Phone: Start: 11-17-2017 Pneumococcal vaccination Pneumococcal Vaccine (2 of 2 - PCV) [facility] Start: 2017 Screening for malign ant neoplasm of breast Mammogram Screening [facility] Start: 11-11-2010 Screening for malign ant neoplasm of cervix Pap Testing [facility] Start: 11-11-2008 Screening for malign ant neoplasm of cervix Cervical Cancer Screening [facility] Start: 06-26-2007 Screening for malign ant neoplasm of cervix HPV Testing [facility] Start: 1996 Hepatitis B Vaccine (1 of 3 - 19+ 3-dose series) Hepatitis B Vaccine (1 of 3 - 19+ 3-dose series) [facility] Start: 06-26-1995 Hepatitis C screening Hepatitis C Sc reening [facility] Start: 06-26-1995 HIV screening HIV Screening [facility] COVID & INFLUENZA A/ B & RSV NAAT, ROUTINE COVID & INFLUENZA A/B & RSV NAAT, ROUTINE Microbiology Routine URI, acute Ordered: 10/27/2023 [facility] Work Phone: Comment on above: Ordered: 10/27/2023 Patient referral [facility] Work Phone: Immunizations Immunization Date Immunization Notes Care Provider [facility] 01-21-2023 influenza, injectabl e, quadrivalent, preservative free Dr. Leanna Baca Work Phone: [facility] 01-21-2023 influenza virus vacc ine, unspecified formulation Jaylan Rand APRN.CNP Work Phone: [facility] 12-19-2019 influenza, injectabl e, quadrivalent, preservative free Dr. Leanna Baca Work Phone: [facility] 12-19-2019 influenza, seasonal, injectable Dr. Leanna Baca Work Phone: [facility] 11-17-2016 pneumococcal polysaccharide vaccine, 23 valent Jaylan Giorgi HEARING STENOGRAPHER.PRE WAVE ASSEMBLER Work Phone: [facility] 05-20-2016 tetanus toxoid, redu jessica diphtheria toxoid, and acellular pertussis vaccine, adsorbed Jaylan Giorgi HEARING STENOGRAPHER.PRE WAVE ASSEMBLER Work Phone: [facility] 05-02-1986 tuberculin skin test ; purified protein derivative solution, intradermal [facility] [place] Work Phone: [facility] 10-23-1982 diphtheria, tetanus toxoids and pertussis vaccine Jaylan Giorgi HEARING STENOGRAPHER.PRE WAVE ASSEMBLER Work Phone: [facility] 10-23-1982 trivalent poliovirus vaccine, live, oral Jaylan Giorgi HEARING STENOGRAPHER.PRE WAVE ASSEMBLER Work Phone: [facility] 05-02-1980 diphtheria, tetanus toxoids and pertussis vaccine Jaylan Giorgi HEARING STENOGRAPHER.PRE WAVE ASSEMBLER Work Phone: [facility] 05-02-1980 trivalent poliovirus vaccine, live, oral Jaylan Giorgi HEARING STENOGRAPHER.PRE WAVE ASSEMBLER Work Phone: [facility] 01-22-1979 measles, mumps and rubella virus vaccine Jaylan Giorgi HEARING STENOGRAPHER.PRE WAVE ASSEMBLER Work Phone: [facility] 1977 diphtheria, tetanus toxoids and pertussis vaccine Jaylan Giorgi HEARING STENOGRAPHER.PRE WAVE ASSEMBLER Work Phone: [facility] 1977 trivalent poliovirus vaccine, live, oral Jaylan Giorgi HEARING STENOGRAPHER.PRE WAVE ASSEMBLER Work Phone: [facility] 1977 diphtheria, tetanus toxoids and pertussis vaccine Jaylan Giorgi HEARING STENOGRAPHER.PRE WAVE ASSEMBLER Work Phone: [facility] 1977 trivalent poliovirus vaccine, live, oral Jaylan Giorgi HEARING STENOGRAPHER.PRE WAVE ASSEMBLER Work Phone: [facility] 1977 diphtheria, tetanus toxoids and pertussis vaccine Jaylan Giorgi HEARING STENOGRAPHER.PRE WAVE ASSEMBLER Work Phone: [facility] Work Phone: 1975 trivalent poliovirus vaccine, live, oral Jaylan Rand RADHA.PRE WAVE ASSEMBLER Work Phone: [facility] Payers Date Payer Category Payer Self-pay [id number] 2022 Medicaid [id number] 2022 Unknown [id number] Medicaid [id number] Unknown [id number] 2.16.8 40.1.434554.3.579.2.462 Unknown [id number] 2.16.8 40.1.216814.3.579.2.462 Unknown [id number] 2.16.8 40.1.194635.3.579.2.462 Unknown [id number] 2.16.8 40.1.248915.3.579.2.462 Unknown [id number] 2.16.8 40.1.420611.3.579.2.462 Unknown [id number] 2.16.8 40.1.295819.3.579.2.462 Unknown [id number] 2.16.8 40.1.081492.3.579.2.462 Unknown [id number] 2.16.8 40.1.864175.3.579.2.462 Unknown [id number] 2.16.8 40.1.314234.3.579.2.462 Unknown [id number] 2.16.8 40.1.367199.3.579.2.462 Unknown [id number] 2.16.8 40.1.134750.3.579.2.462 Unknown [id number] 2.16.8 40.1.387324.3.579.2.462 Unknown [id number] 2.16.8 40.1.636151.3.579.2.462 Unknown [id number] 2.16.8 40.1.343390.3.579.2.462 Unknown [id number] 2.16.8 40.1.488663.3.579.2.462 Unknown [id number] 2.16.8 40.1.088529.3.579.2.462 Unknown [id number] 2.16.8 40.1.440353.3.579.2.462 Unknown [id number] 2.16.8 40.1.743229.3.579.2.462 Unknown [id number] 2.16.8 40.1.233524.3.579.2.462 Unknown [id number] 2.16.8 40.1.227543.3.579.2.462 Unknown [id number] 2.16.8 40.1.204733.3.579.2.462 Unknown [id number] 2.16.8 40.1.351635.3.579.2.462 Unknown [id number] 2.16.8 40.1.873033.3.579.2.462 Unknown [id number] 2.16.8 40.1.203178.3.579.2.462 Unknown [id number] 2.16.8 40.1.117202.3.579.2.462 Unknown [id number] 2.16.8 40.1.066717.3.579.2.462 Unknown [id number] 2.16.8 40.1.575074.3.579.2.462 Unknown [id number] 2.16.8 40.1.274660.3.579.2.462 Unknown [id number] 2.16.8 40.1.649057.3.579.2.462 Unknown [id number] 2.16.8 40.1.282132.3.579.2.462 Unknown [id number] 2.16.8 40.1.625014.3.579.2.462 Unknown [id number] 2.16.8 40.1.150018.3.579.2.462 Unknown [id number] 2.16.8 40.1.596381.3.579.2.462 Unknown [id number] 2.16.8 40.1.173626.3.579.2.462 Unknown [id number] 2.16.8 40.1.041059.3.579.2.462 Unknown [id number] 2.16.8 40.1.372320.3.579.2.462 Unknown [id number] 2.16.8 40.1.524295.3.579.2.462 Unknown [id number] 2.16.8 40.1.708953.3.579.2.462 Unknown [id number] 2.16.8 40.1.374297.3.579.2.462 Social History Date Type Detail Facility Start: 06-02-2022 End: 01-21-2023 Tobacco smoking status [facility] Unknown if ever smoked [facility] Start: 12-15-2019 Heavy [facility] Start: 12-15-2019 None [facility] Start: 12-15-2019 With Family [facility] Start: 12-15-2019 Cigarettes [facility] Start: 1975 Sex Assigned At Female W [facility] Start: 08-14-2023 End: 11-07-2023 Tobacco smoking status NHIS Smokes tobacco daily [facility] History of tobacco use Cigarette Smoker [facility] Start: 02-26-2020 End: 08-14-2023 Cigarettes smoked current (pack per day) - Reported 0.5 [facility] Start: 08-14-2023 End: 11-07-2023 Tobacco use and exposure Smokeless tobacco non-user [facility] Start: 08-14-2023 End: 05-09-2024 Alcohol intake Current drinker of alcohol (finding) [facility] Start: 02-26-2020 End: 08-14-2023 Tobacco use panel [facility] Adult Depression Screening Assessment 0 [facility] Start: 1975 Sex Assigned At Not on file [facility] Clinical Notes 08-14-2023 to 10-27-2024 Jose Manuel Ogden PA-C - 05/09/2024 1:54 PM ESTPatient InstructionsPraadele-Sheyla Snow APRN.TARA - 04/11/2024 10:32 AM Jayda Chisholm APRN.TARA - 11/07/2023 1:07 PM EDTPatient Instructions Note Date & Type Note Facility 10-27-2024 Note HNO ID: [id number] Author: JAYDA PEÑALOZA APRN.TARA Service: ? Author Type: Nurse Practitioner Type: Progress Notes Filed: 10/27/2024 19:14 Note Text: [facility] Lee Sajan Olegario is a 49 year old female. [...] absence due to illness. and Recording using MethylGene software for draft documentation of the visit was discussed with the patient/authorized bank representative; all questions welcomed and answered. Patient/authorized bank representative agreed to proceed MDM Procedures [facility] 05-09-2024 Note HNO ID: [id number] Author: JOSE MANUEL OGDEN PA-C Service: ? Author Type: Physician Bacteriology Professor Type: Progress Notes Filed: 05/09/2024 14:07 Note Text: This note was created using [employer]. Subjective Miguel Melvin is a 48 year [...] - PREDNISONE 20 MG TABLET Jose Manuel Ogden PA-C [facility] 05-09-2024 History of Presen t illness Narrative This note was created using At[employer]. Subjective Miguel Melvin is a 48 year [...] - PREDNISONE 20 MG TABLET Jose Manuel Clutter, PA-C documented in this encounter [facility] 04-11-2024 Instructions Sheyla Alfonso APRN.TARA - 04/11/2024 10:35 AM EST ASSESSMENT/PLAN: 1. [...] Discussed expected course of illness Sheyla Alfonso APRN.PRE WAVE ASSEMBLER CONJUNCTIVITIS GENERAL INFORMATION: Conjunctivitis is also known [...] F (38 C). documented in this encounter [facility] 04-11-2024 Note HNO ID: [id number] Author: SHEYLA ALFONSO APRN.TARA Service: ? Author [...] needed. (Patient not taking: Reported on 04/11/2024) Iddxoloplboakig-Tticbtzgl-PJ (BROMFED DM) 2-30-10 mg/5 mL syrup Take [...] Extraocular movements intact. (more content not included)... [facility] 04-11-2024 History of Presen t illness Narrative [...] needed. (Patient not taking: Reported on 04/11/2024) Uivxsjxylplaazb-Dbcozarno-WX (BROMFED DM) 2-30-10 mg/5 mL syrup Take [...] Discussed expected course of illness Sheyla Alfonso APRN.PRE WAVE ASSEMBLER documented in this encounter [facility] 11-07-2023 Note HNO ID: [id number] Author: JAYDA PEÑALOZA APRN.PRE WAVE ASSEMBLER Service: ? Author Type: Nurse Practitioner Type: [...] Take 1 capsule by mouth twice daily. Fyajzctttxhbzie-Wnhyfaoxp-XR (BROMFED DM) 2-30-10 mg/5 mL syrup Take [...] tobacco: Never Jordan (more content not included)... [facility] 11-07-2023 History of Presen t illness Narrative [...] Take 1 capsule by mouth twice daily. Qhdictvzyyqvqdc-Qgzppngal-ZI (BROMFED DM) 2-30-10 mg/5 mL syrup Take [...] Patient agreeable to treatment plan. Jayda Peñaloza APRN.TARA documented in this encounter [facility] 11-02-2023 Note HNO ID: [id number] Author: SHEYLA ALFONSO APRN.CNP Service: ? Author Type: Nurse Practitioner Type: [...] Device one time only for 1 dose. Imwzmqdsqhpkbzf-Uchghmgue-GL (BROMFED DM) 2-30-10 mg/5 mL syrup Take [...] Right Ear: Tym (more content not included)... [facility] 11-02-2023 History of Presen t illness Narrative [...] Device one time only for 1 dose. Smctensrufizusy-Spgsslysw-KK (BROMFED DM) 2-30-10 mg/5 mL syrup Take [...] Discussed expected course of illness Sheyla Alfonso APRN.CNP documented in this encounter [facility] 11-02-2023 Instructions Sheyla Alfonso APRN.CNP - 11/02/2023 1:25 PM EDT ASSESSMENT/PLAN: 1. [...] Discussed expected course of illness Sheyla Alfonso APRN.CNP ACUTE BRONCHITIS: You have acute bronchitis. This [...] of proper treatment. documented in this encounter [facility] 10-29-2023 History of Presen t illness Narrative [...] Take 1 capsule by mouth twice daily. Slvpcjapemikrmj-Mdmiqbggi-RK (BROMFED DM) 2-30-10 mg/5 mL syrup Take [...] of care. This note was generated using iFollo software. It may contain errors in wording, punctuation, or spelling. Humberto Miller APRN.TARA documented in this encounter [facility] 10-27-2023 History of Presen t illness Narrative [...] PATIENT PRESENTS WITH AN IMPLANTABLE OR ATTACHED AIRCRAFT MAINTENANCE ENGINEER: No RADIOLOGY DEPARTMENT: General X-ray: Exam(s) Completed: Chest X-Ray PERIPHERAL IV DATA: Not applicable SIGNED BY: RT Jasmin(R) October 27, 2023 1:00 PM documented in this encounter [facility] 10-27-2023 History of Presen t illness Narrative [...] mg tablet Take 5 mg by mouth. Gcurpeqagqnwbns-Ehpuexsua-TE (BROMFED DM) 2-30-10 mg/5 mL syrup Take [...] abnormality. Dictated by : MD Jaylan QUIÑONES APRN.PRE WAVE ASSEMBLER documented in this encounter [facility] 09-01-2023 History of Presen t illness Narrative [...] mg tablet Take 5 mg by mouth. Jegaheojfrrxrlj-Voxylevyp-TW (BROMFED DM) 2-30-10 mg/5 mL syrup Take [...] of care. This note was generated using iFollo software. It may contain errors in wording, punctuation, or spelling. Humberto Miller APRN.TARA documented in this encounter [facility] 08-14-2023 History of Presen t illness Narrative Subjective HPI HPI Tusayan Sajan Olegario is a 48 year old female who [...] Take 1 capsule by mouth twice daily. Qecqdzhdcxeuelf-Ibtcwscpp-RC (BROMFED DM) 2-30-10 mg/5 mL syrup Take [...] flag s/s discussed Push fluids Jaylan Rand APRN.PRE WAVE ASSEMBLER documented in this encounter [facility] Evaluation note Diagnosis Onset Date Anxiety and depression acute Bipolar depression acute Morbid obesity [facility] Work Phone: Evaluation note* Diagnosis Onset Date Resolution Status Anxiety and depression acute Obesity [facility] Work Phone: Evaluation note* Diagnosis Onset Date Resolution Status Flu vaccine need acute Anxiety and depression chron ic Dermatitis chronic Hypertension [facility] Work Phone: Evaluation note* Diagnosis Vomiting and diarrhea- Primary Vomiting alone [facility] Diagnosis Nausea vomiting and diarrhea- Primary Diarrhea [facility] Diagnosis URI, acute- Primary Acute upper respiratory infections of unspecified site Acute cough [facility] Diagnosis Lower respiratory tract infection- Primary Other diseases of respiratory system, not elsewhere classified [facility] Diagnosis Viral bronchitis- Primary Acute bronchitis Otalgia of both ears Otalgia, unspecified [facility] Diagnosis Acute cough- Primary Respiratory infection Other diseases of respiratory system, not elsewhere classified [facility] Diagnosis Conjunctivitis of both eyes, unspecified conjunctivitis type- Primary documented in this encounter [facility]* Diagnosis Urticaria of unknown origin- Primary documented in this encounter [facility] Summary Purpose Family History No Family History Records Found Relationship Condition Age at Onset Recorded Date/T john Not Specified Anxiety with depression Unknown grandmother Malignant neoplasm Unknown grandfather Dementia Unknown Advance Directives No Advanced Directives Records Found Advance Directive Response Recorded Date/ Time Advance Directives No April 12:14pm Living Will No June 05, 2021 9:26pm Power of Tub Operator No June 05 9:26pm Advance Directive Response Recorded Date/ Time Advance Directives No February 28, 2020 12:21pm Living Will No June 05, 2021 9:26pm Power of Tub Operator No June 05 9:26pm Advance Directive Response Recorded Date/ Time Advance Directives No November 12:04pm Living Will No November 28 023 12:04pm Power of Tub Operator No November 28, 2022 12:04pm Chief Complaint and Reason for Visit Chief Complaint follow up Reason for Visit Anxiety and depressi on Bipolar depression Morbid obesity Chief Complaint 1 M FU for Meds MORBID OBESITY Reason for Visit Anxiety and depressi on Obesity Chief Complaint MORBID OBESITY 3 M FU R/S FROM 11/19 Reason for Visit Flu vaccine need Anxiety and depression Dermatitis Hypertension Additional Source Comments INFORMATION SOURCE (unrecogn ized section and content) DATE CREATED AUTHOR 09/15/2017 [employer] DATE CREATED AUTHOR AUTHOR'S ORGANIZ ATION 10/30/2024 [facility] DATE CREATED AUTHOR AUTHOR'S ORGANIZ ATION 12/08/2024 [facility] Care Teams (unrecognized sec tion and content) Team Status: Active Member Role Status Dates Dr. Elfego Hall MD Family Provider Active Dr. Leanna Baca MD Primary Care Provider Active Team Status: Inactive Member Role Status Dates Dr. Leanna Baca MD Primary Care P valentin, Attending Provider, Referring Provider Active Team Status: Inactive Member Role Status Dates Jose Manuel Ferrer BUTTON TUFTING MACHINE OPERATOR, BUTTON TUFTING MACHINE OPERATOR-C Attending Provider Active Dr. Leanna Baca MD Primary Care Provider, Refer ring Provider Active Team Status: Inactive Member Role Status Dates Dr. Leanna Baca MD Primary Care Provider Active Jose Manuel Ferrer BUTTON TUFTING MACHINE OPERATOR, BUTTON TUFTING MACHINE OPERATOR-C Attending Provider, Referring Prov ider Active Team Status: Inactive Member Role Status Dates Dr. Leanna Baca MD Primary Care Provider, Atten ding Provider Active Audit Clerk Relationship Specialty Start Date End Date Leanna Baca MD [address] [place] [address] PCP - General Internal Medicine 08/14/23 Audit Clerk Relationship Specialty Start Date End Date Leanna Baca MD [address] [place] [address] PCP - General Internal Medicine 08/14/23 Audit Clerk Relationship Specialty Start Date End Date Leanna Baca MD [address] [place] [address] PCP - General Internal Medicine 08/14/23 Audit Clerk Relationship Specialty Start Date End Date Leanna Baca MD [address] [place] [address] PCP - General Internal Medicine 08/14/23 Audit Clerk Relationship Specialty Start Date End Date Leanna Baca MD [address] [place] [address] PCP - General Internal Medicine 08/14/23 Audit Clerk Relationship Specialty Start Date End Date Leanna Baca MD [address] [place] [address] PCP - General Internal Medicine 08/14/23 Audit Clerk Relationship Specialty Start Date End Date Leanna Baca MD [address] [place] [phone] PCP - General Internal Medicine 08/14/23 Audit Clerk Relationship Specialty Start Date End Date Leanna Baca MD [address] [facility] [address] [place] [phone] PCP - General Internal Medicine 08/14/23 Goals [...] or prosecute any alcohol or drug abuse patient.[facility] the event this information is protected by the Federal Confidentiality of Alcohol and Drug Abuse Patient Records regulations: The Federal rules restrict any use of the information to criminally investigate or prosecute any alcohol or drug abuse patient.[facility] the event this information is protected by the Federal Confidentiality of Alcohol and Drug Abuse Patient Records regulations: The Federal rules restrict any use of the information to criminally investigate or prosecute any alcohol or drug abuse patient.[facility] the event this information is protected by the Federal Confidentiality of Alcohol and Drug Abuse Patient Records regulations: The Federal rules restrict any use of the information to criminally investigate or prosecute any alcohol or drug abuse patient.[facility] the event this information is protected by the Federal Confidentiality of Alcohol and Drug Abuse Patient Records regulations: The Federal rules restrict any use of the information to criminally investigate or prosecute any alcohol or drug abuse patient.[facility] the event this information is protected by the Federal Confidentiality of Alcohol and Drug Abuse Patient Records regulations: The Federal rules restrict any use of the information to criminally investigate or prosecute any alcohol or drug abuse patient.[facility] the event this information is protected by the Federal Confidentiality of Alcohol and Drug Abuse Patient Records regulations: The Federal rules restrict any use of the information to criminally investigate or prosecute any alcohol or drug abuse patient.[facility] the event this information is protected by the Federal Confidentiality of Alcohol and Drug Abuse Patient Records regulations: The Federal rules restrict any use of the information to criminally investigate or prosecute any alcohol or drug abuse patient.[facility] the event this information is protected by the Federal Confidentiality of Alcohol and Drug Abuse Patient Records regulations: The Federal rules restrict any use of the information to criminally investigate or prosecute any alcohol or drug abuse patient.[facility] Reason for Visit (unrecogniz ed section and [...] BE BASED ON THE PRIMARY CLINICAL RECORDS. [facility]. provides no warranty or guarantee of the accuracy or completeness of information in this document.
[2024-12-09 08:11] VITALS: BP 133/68; PULSE 68; RESP 16; TEMP 35.8; O2SAT 98; BMI 40.3
[2024-12-09 08:36] VITALS: BP 125/66; PULSE 73; RESP 16; TEMP 35.9; O2SAT 98
[2024-12-09 09:50] VITALS: BP 119/57; PULSE 63; RESP 16; TEMP 36.1; O2SAT 98
[2024-12-09 10:20] VITALS: BP 112/63; PULSE 68; RESP 16; TEMP 36; O2SAT 98
[2024-12-09 11:33] VITALS: BP 131/82; PULSE 72; RESP 16; TEMP 36; O2SAT 98
== END 2024-12-09 23:59 | disposition home or self-care (01) ==
LOC: MEDOUTP 07:46
PROVIDERS: PCP Internal Medicine; Referring Provider Internal Medicine; Visit Provider Internal Medicine
DX: D50.9 Iron deficiency anemia, unspecified (principal)
CPT/HCPCS: 36415; 36430; 86850; 86900; 86901; 86920; P9016; A4216

== ENCOUNTER 2024-12-13 14:30 | Outpatient (CLI) | payer MEDICAID, SELFPAY ==
[2024-04-05 15:57] VITALS: BMI 41.0
[2024-12-13 14:50] VITALS: BP 129/65; PULSE 78; RESP 16; TEMP 35.6; O2SAT 98
[2024-12-13] MEDS: 0.9% NaCl IVPB Med Flush (100mL) 15 ML IV (15:06)
[2024-12-13] MEDS: Iron Sucrose Complex (Venofer) 200 MG in 0.9% NaCl 100 ML 220 MG IV (15:10)
[2024-12-13 15:53] VITALS: BP 130/65; PULSE 71; RESP 16
== END 2024-12-13 23:59 | disposition home or self-care (01) ==
LOC: MEDOUTP 14:30
PROVIDERS: PCP Internal Medicine; Referring Provider Internal Medicine; Visit Provider Internal Medicine
DX: D50.9 Iron deficiency anemia, unspecified (principal)
CPT/HCPCS: 96365; J1756; A4216

== ENCOUNTER 2024-12-21 14:32 | Outpatient (CLI) | payer MEDICAID, SELFPAY ==
[2024-04-05 15:57] VITALS: BMI 41.0
[2024-12-21] MEDS: Iron Sucrose Complex (Venofer) 200 MG in 0.9% NaCl 100 ML 220 MG IV (14:57)
[2024-12-21] MEDS: 0.9% NaCl IVPB Med Flush (100mL) 15 ML IV (14:57)
[2024-12-21] MEDS: 0.9% NaCl Peripheral Flush Adult IV (14:57)
[2024-12-21 14:59] VITALS: BP 134/68; PULSE 86; RESP 16; TEMP 35.8; O2SAT 97; BMI 41.1
== END 2024-12-21 23:59 | disposition home or self-care (01) ==
LOC: MEDOUTP 14:32
PROVIDERS: PCP Internal Medicine; Referring Provider Internal Medicine; Visit Provider Internal Medicine
DX: D50.9 Iron deficiency anemia, unspecified (principal)
CPT/HCPCS: 96365; J1756; A4216

== ENCOUNTER 2024-12-23 11:31 | Outpatient (CLI) | payer MEDICAID, SELFPAY ==
[2024-04-05 15:57] VITALS: BMI 41.0
[2024-12-23 11:40] VITALS: BP 120/40; PULSE 78; RESP 16; TEMP 35.8; O2SAT 98
[2024-12-23] MEDS: 0.9% NaCl IVPB Med Flush (100mL) 15 ML IV (12:11)
[2024-12-23] MEDS: Iron Sucrose Complex (Venofer) 200 MG in 0.9% NaCl 100 ML 220 MG IV (12:11)
== END 2024-12-23 23:59 | disposition home or self-care (01) ==
LOC: MEDOUTP 11:31
PROVIDERS: PCP Internal Medicine; Referring Provider Internal Medicine; Visit Provider Internal Medicine
DX: D50.9 Iron deficiency anemia, unspecified (principal)
CPT/HCPCS: 96365; J1756; A4216

== ENCOUNTER 2024-12-28 12:30 | Outpatient (CLI) | payer MEDICAID, SELFPAY ==
[2024-04-05 15:57] VITALS: BMI 41.0
== END 2024-12-28 23:59 | disposition home or self-care (01) ==
LOC: MEDOUTP 01-31 14:50
PROVIDERS: PCP Internal Medicine; Referring Provider Internal Medicine; Visit Provider Internal Medicine
DX: D50.9 Iron deficiency anemia, unspecified (principal); I25.10 Atherosclerotic heart disease of native coronary artery without angina pectoris

== ENCOUNTER 2025-01-12 10:00 | Emergency (ER) | payer MEDICAID, SELFPAY ==
[2024-04-05 15:57] VITALS: BMI 41.0
[2025-01-12 10:00] VITALS: BP 135/65; PULSE 85; RESP 14; TEMP 36.6; O2SAT 98; BMI 41.2
[2025-01-12 12:15] LABS: Hematocrit 30.7 % (37-47); Hemoglobin 9.2 g/dL (12.0-15.0); Immature Granulocytes Count 0.020 X10^3/uL (0.0-0.0); Mean Corp Hgb Conc 30.0 g/dL (32-36); Mean Corpuscular Volume 78.9 fL (81-99); Mean Platelet Vol. 11.0 fl (6.2-12.0); NRBC Flagged by Analyzer 0 % (0-5); POSITIVE MORPHOLOGY YES; Platelet Count 274 K/mm3 (150-450); RBC Distribution Width CV 26.2 % (11.6-14.6); RBC Distribution Width SD 72.3 fl (35.1-43.9); Red Blood Count 3.89 M/mm3 (4.2-5.4); White Blood Count 5.9 K/mm3 (4.4-11.0)
[2025-01-12 12:16] LABS: Differential Indicated SCAN CRITERIA MET
[2025-01-12 12:25] LABS: Prothrombin Time (Protime)PT. 12.5 SECONDS (11.7-14.9)
[2025-01-12 12:26] LABS: Partial Thromboplast Time 26.2 Seconds (24.1-36.2)
[2025-01-12 12:37] VITALS: BP 106/60; PULSE 76; RESP 18; O2SAT 99
[2025-01-12 12:45] LABS: Anisocytosis 2+; Differential Comment SCANNED
[2025-01-12 13:00] VITALS: BP 110/58; PULSE 74; RESP 18; O2SAT 99
[2025-01-12 13:12] LABS: Anion Gap 12 (5-15); BUN 8 mg/dL (4-19); BUN/Creat Ratio 11.0 RATIO (10-20); Calcium,Total 9.0 mg/dL (7.6-11.0); Carbon Dioxide 23.1 mmol/L (21.0-32.0); Chloride 103 mmol/L (98-108); Estimated Creatinine Clearance 121.57 ml/min (50-250); Glucose 135 mg/dL (70-99); Potassium 3.6 mmol/L (3.3-5.1)
[2025-01-12 14:25] VITALS: BP 150/61; PULSE 73; RESP 18; TEMP 37; O2SAT 98
== END 2025-01-12 14:37 | disposition home or self-care (01) ==
PROVIDERS: Emergency Provider Emergency Medicine; PCP Internal Medicine; Visit Provider Emergency Medicine
DX: N92.0 Excessive and frequent menstruation with regular cycle (principal); I10 Essential (primary) hypertension; I25.10 Atherosclerotic heart disease of native coronary artery without angina pectoris; F17.210 Nicotine dependence, cigarettes, uncomplicated; K21.9 Gastro-esophageal reflux disease without esophagitis; Z79.899 Other long term (current) drug therapy
CPT/HCPCS: 80048; 85025; 85610; 85730; 86850; 86900; 86901; 99283; A4216

== ENCOUNTER 2025-01-31 05:34 | Day surgery (SDC) | payer MEDICAID, SELFPAY ==
[2024-04-05 15:57] VITALS: BMI 41.0
--- NOTE | 2025-01-25 09:15 | EKG12_ITS ---
Test Reason : PREOP Blood Pressure : */* mmHG Vent. Rate : 78 BPM Atrial Rate : 78 BPM P-R Int : 168 ms QRS Dur : 126 ms QT Int : 438 ms P-R-T Axes : 67 87 42 degrees QTcB Int : 499 ms Normal sinus rhythm Right bundle branch block Abnormal ECG Confirmed by Omero Martinez ([id number]), editor continuity and script MIKA ULLOA ([id number]) on 01/25/2025 12:40:58 PM Referred By: Angelita Lucio Confirmed By: Omero Martinez
[2025-01-25 10:08] LABS: Hematocrit 32.6 % (37-47); Hemoglobin 9.3 g/dL (12.0-15.0); Immature Granulocytes Count 0.050 X10^3/uL (0.0-0.0); Mean Corp Hgb Conc 28.5 g/dL (32-36); Mean Corpuscular Volume 77.6 fL (81-99); Mean Platelet Vol. 10.9 fl (6.2-12.0); NRBC Flagged by Analyzer 0.3 % (0-5); POSITIVE MORPHOLOGY YES; Platelet Count 322 K/mm3 (150-450); RBC Distribution Width CV 23.3 % (11.6-14.6); RBC Distribution Width SD 64.5 fl (35.1-43.9); Red Blood Count 4.20 M/mm3 (4.2-5.4); White Blood Count 7.8 K/mm3 (4.4-11.0)
[2025-01-25 10:23] LABS: Differential Indicated SCAN CRITERIA MET
[2025-01-25 11:04] LABS: AST(SGOT) 14 U/L (<=31); Alanine Aminotransfer ALT/SGPT 11 U/L (<=34); Albumin, Serum 4.3 g/dL (3.5-5.0); Alkaline Phosphatase 95 U/L (35-104); Anion Gap 12 (5-15); BUN 17 mg/dL (4-19); BUN/Creat Ratio 19.5 RATIO (10-20); Calcium,Total 9.4 mg/dL (7.6-11.0); Carbon Dioxide 23.1 mmol/L (21.0-32.0); Chloride 105 mmol/L (98-108); Globulin 3.0 g/dL (2.2-4.2); Glucose 180 mg/dL (70-99); Potassium 3.8 mmol/L (3.3-5.1)
[2025-01-25 11:06] LABS: Anisocytosis 2+; Differential Comment SCANNED; Microcytosis 1+; Polychromasia 1+
[2025-01-25 11:21] LABS: Magnesium 2.1 mg/dL (1.5-2.2)
--- NOTE | 2025-01-25 12:33 | PAT.ANE_ITS ---
Pre-Assessment Diagnosis/Proposed Procedure Planned Operative Procedure(s): TOTAL ROBOTIC HYSTERECTOMY BSO CYSTO Anesthesia History Anesthesia History - dietitian chief: Anesthesia History - dietitian chief Hx Hospitalization No 01/19/25 15:33 Any Problems With Anesthesia No: NO SURGERY HX 01/19/25 15:33 Cholinesterase deficiency No 01/19/25 15:33 You/Your Family Experience No 01/19/25 15:33 fever (hyperthermia) with Relationship Recent Exposure to Contagious Disease Does patient have nerve No 01/19/25 15:33 stimulator Patient instructed to have device shut off --Does patient have Pacemaker or ICD? When Was Last Pacemaker Check QUESTION #4 FULL TEXT: You/Your Family Experience fever (hyperthermia) with Anesthesia Last Oral Intake Last Oral intake: Last Oral Intake NPO since Meds taken in AM with sips of water? Meds patient instructed to take am of surgery PONV PONV - dietitian chief: PONV - dietitian chief Female Yes 01/19/25 15:33 HX of Motion Sickness Yes 01/19/25 15:33 HX of N/V After Surgery No 01/19/25 15:33 Non-Smoker No 01/19/25 15:33 Duration of Surgery greater Yes 01/19/25 15:33 than 60 minutes Number of Risk Factors 3 01/19/25 15:33 PONV Score Moderate Risk 01/19/25 15:33 Height & Weight Height & Weight: Anesthesia: Height & Weight Height 5 ft 6 in 11/07/24 14:11 Respiratory Assessment Respiratory Assessment - dietitian chief: Respiratory Tract Infection Hx - dietitian chief Hx Respiratory Tract Infection No 01/19/25 15:33 STOP Sleep Apnea STOP Sleep Apnea - dietitian chief: STOP Sleep Apnea - dietitian chief Hx Hypertension Yes: CONTROLLED WITH MED 01/19/25 15:33 Hx Sleep Apnea No 01/19/25 15:33 CPAP BIPAP Do you snore loudly (louder No 01/19/25 15:33 than talking or can be heard Do you often feel tired/ Yes 01/19/25 15:33 fatigued/ sleepy during daytime? Has anyone observed you stop No 01/19/25 15:33 breathing during sleep? STOP Results Positive 01/19/25 15:33 QUESTION #5 FULL TEXT : Do you snore loudly (louder than talking or can be heard through closed doors)? 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 Specify any problems Hx of Preganancy in last 3 No 01/19/25 15:33 Months Nurse Filling Out Transfusion DSCHRIBER 01/19/25 15:33 & Questions: Date: 01/19/25 01/19/25 15:33 Time: 15:35 01/19/25 15:33 Patient unable to answer at this time (ie. confused, unrespo /Reproduction History /Reproductive History - dietitian chief: /Reproductive Hx- dietitian chief Hx Now No 01/19/25 15:33 Gestational Age (in weeks): EDC: Hx Hx Para Hx Section SAB No 01/19/25 15:33 Does the father of the baby or his family experience fever w Father of the baby Malignant Hypertension history comment PFSH Medical History (Updated 01/19/25 @ 15:42 by Emerald Abdalla) Loss of hearing Wears glasses Bipolar disorder Depression Anxiety Alcohol use Bladder disease Anemia Low iron High cholesterol Pulmonary embolism Restless legs Migraine headache Epilepsy Smoker Shortness of breath on exertion Hypertension History of echocardiogram Cardiology follow-up encounter History of irregular heartbeat Neuropathy Hypersomnolence Heart attack Cough Borderline type 2 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 Dermatitis Anxiety and depression Bilateral primary osteoarthritis of knee Knee pain, bilateral Abdominal wall abscess Sinusitis Screening for thyroid disorder COVID-19 Right elbow pain Swelling of thyroid gland Enlarged uterus Osteoarthritis of both knees GERD (gastroesophageal reflux disease) Depression Anxiety Home Medications Medication Instructions Recorded Last Taken Type albuterol sulfate 90 mcg/actuation 1 - 2 puff inhalati on Q6H PRN 03/26/21 Unknown Rx aerosol inhaler shortness of breath or wheez ing #8.5 grams hydroxyzine HCl 25 mg tablet 25 mg PO BID PRN anxiety #30 tabs 12/08/23 Unknown Rx hydrocortisone 2.5 % topical cream 1 applic topical BI D PRN rash 07/27/24 Unknown Rx #453.6 grams atorvastatin 40 mg tablet 40 mg PO QHS #90 tabs Unknown Rx carvedilol 3.125 mg tablet 3.125 mg PO BID #180 tabs 0 08/30/24 Unknown Rx clopidogrel 75 mg tablet 75 mg PO DAILY #90 tabs 08/21 Unknown Rx losartan 25 mg tablet 25 mg PO QDAY blood pressure #90 08/30/24 Unknown Rx tabs folic acid 1 mg tablet 1 mg PO DAILY supplement #90 tabs 09/05/24 Unknown Rx pantoprazole 40 mg tablet,delayed 40 mg PO DAILY #90 t abs 09/05/24 Unknown Rx release buspirone 15 mg tablet 15 mg PO TID #270 tabs 09/15 Unknown Rx cariprazine 3 mg capsule (Vraylar) 3 mg PO DAILY [employer] #30 09/15/24 Unknown Rx caps escitalopram oxalate 10 mg tablet 10 mg PO DAILY depre ssion #90 tabs 09/15/24 Unknown Rx aspirin 81 mg tablet,delayed 81 mg PO DAILY@0800 #90 t abs 12/09/24 Unknown Rx release valacyclovir 500 mg tablet 500 mg PO BID #14 tabs 12/22 04/16 Unknown Rx (Valtrex) bupropion HCl 150 mg 24 hr tablet, 150 mg PO QHS 01/19 Unknown History extended release (Wellbutrin XL) bupropion HCl 150 mg tablet,12 hr 300 mg PO DAILY Z[place] 01/19/25 Unknown History sustained-release ferrous sulfate 325 mg (65 mg 325 mg PO DAILY suppleme nt 01/19/25 Unknown History iron) tablet (FeroSul) medroxyprogesterone 10 mg tablet 10 mg PO BID 01/19/25 Unknown History Allergy/AdvReac Type Severity Reaction Status Date / Time cinnamon Allergy Rash Verified 01/19/25 15:27 Family History Grandmother Cancer Grandfather Dementia Other Depression with anxiety Surgical History (Updated 01/19/25 @ 15:42 by Emerald Abdalla) History of cardiac catheterization Stented coronary artery (11/12/23) [place] teeth removed History of History of tubal ligation Social History household members: children housing: house number of children: 4 current occupational status: employed current occupation: [employer] history of recent travel: No sexually active: Yes Smoking Status: Current every day smoker tobacco type: cigarettes Tobacco: How many years used: 15 how long ago did patient quit smokin11/12/23 alcohol intake: former year quit: 2019 details: 8 months sober substance use type: does not use diet: diabetic and low carbohydrate caffeine: Yes Type: carbonated beverages Number of servings: 1 what type of physical activity do you participate in: walking seatbelt use: always do you feel safe at home: Yes additional social history: single Audit: Pertinent Findings HISTORY of Pertinent Findings History of Pertinent Findings: This is a 49-year-old female who presents to the office today for a cardiovascular follow-up. She was initially seen in consultation for ST elevated myocardial infarction in October 2023. She presented to the Emergency Department on 11/12/2023 for midsternal chest pain. Heart catheterization showed a left main with mild luminal irregularities, proximal LAD with 90% stenosis, circumflex with mild luminal irregularities, and RCA with mild luminal irregularities. She proceeded with drug-eluting stent to proximal LAD. She had an echocardiogram that showed an ejection fraction of 65% and no regional wall motion abnormalities. She also has a past medical history of borderline type 2 diabetes, hypertension, previous tobacco abuse, hyperlipidemia, and obesity. From a cardiac standpoint, the patient is doing well. Pertinent Findings EKG Perinent findings: 12/2023: EKG NSR with RBBB Echo (EF%) pertinent findings: Echocardiogram 11/12/2023 Interpretation Summary The estimated ejection fraction is 65 %. No evidence for diastolic dysfunction. Heart catheterization pertinent findings: ardiac Catheterization 11/12/2023 CONCLUSIONS Single-vessel CAD as described. Successful IKE to proximal LAD CORONARY ANGIOGRAPHY DOMINANCE: Right Dominant LEFT MAIN: Mild luminal irregularities LEFT ANTERIOR DESCENDING ARTERY: PROX LAD: 90 % Stenosis CIRCUMFLEX ARTERY: Mild luminal irregularities RIGHT CORONARY ARTERY: Mild luminal irregularities Recommendation Anesthesia Recommendation Anesthesia recommendation: OPTIMIZED for anesthesia
[2025-01-31] VITALS (12 sets, daily range): BP systolic 86–123; BP diastolic 51–61; PULSE 65–85; RESP 14–18; TEMP 36.3–36.9; O2SAT 86–97; BMI 41.7
--- OUTSIDE RECORDS SUMMARY | 2025-01-31 05:37 | XMS RPT_ITS | CCD ---
Author Organization [facility] Care Team Providers Care Hot Stick Worker Name Role Phone NHUNG MOROCHO Unavailable Unavailable [...] Primary Care Unavailable Phuong, Efewongbe Attending Unavailable Oleghe, Efewongbe Referring Unavailable Oleghe, Efewongbe Primary Care Unavailable Chuyghe, Efewongbe Primary Care Unavailable Phuong Efewongbe Attending Unavailable Chuyghe, Efewongbe Referring Unavailable Phuong, Efewongbe Attending Unavailable Oleghe, Efewongbe Primary Care Unavailable Oleghe, Efewongbe Referring Unavailable Nagajothi, Nagapradee Referring Unavailabl e Nagajothi, Nagapradee Attending Unavailabl e Oleghe, Efewongbe Primary Care Unavailable Oleghe, Efewongbe Primary Care Unavailable Oleghe, Efewongbe Referring Unavailable Oleghe, Efewongbe Attending Unavailable Oleghe, Efewongbe Attending Unavailable Oleghe, Efewongbe Referring Unavailable Oleghe, Efewongbe Primary Care Unavailable Oleghe, Efewongbe Primary Care Unavailable Oleghe, Efewongbe Attending Unavailable Oleghe, Efewongbe Referring Unavailable Oleghe, Efewongbe Attending Unavailable Oleghe, Efewongbe Referring Unavailable Oleghe, Efewongbe Primary Care Unavailable Oleghe, Efewongbe Referring Unavailable Oleghe, Efewongbe Attending Unavailable Oleghe, Efewongbe Primary Care Unavailable Oleghe, Efewongbe Primary Care Unavailable Oleghe, Efewongbe Referring Unavailable Oleghe, Efewongbe Attending Unavailable Christoph Swartz Attending Unavailable Oleghe, Efewongbe Primary Care Unavailable Vande Velmohinder Angelita Referring Unavailabl e Vande Velmohinder Angelita Attending Unavailabl e Oleghe, Efewongbe Primary Care Unavailable Oleghe, Efewongbe Attending Unavailable Oleghe, Efewongbe Primary Care Unavailable Oleghe, Efewongbe Referring Unavailable Oleghe, Efewongbe Primary Care Unavailable [place] SOFT WORK WRAPPER LAYER AND EXAMINER, Misti Referring Unavailable [place] SOFT WORK WRAPPER LAYER AND EXAMINERMisti Attending Unavailable Oleghe, Efewongbe Primary Care Unavailable Oleghe, Efewongbe Attending Unavailable Oleghe, Efewongbe Referring Unavailable Oleghe, Efewongbe Primary Care Unavailable [place] SOFT WORK WRAPPER LAYER AND EXAMINER, Misti Attending Unavailable Teri SOFT WORK WRAPPER LAYER AND EXAMINER, Misti Referring Unavailable Oleghe, Efewongbe Attending Unavailable Oleghe, Efewongbe Referring Unavailable Oleghe, Efewongbe Primary Care Unavailable Oleghe, Efewongbe Primary Care Unavailable Nagajothi, Nagapradee Attending Unavailabl e Nagajothi, Nagapradee Referring Unavailabl e Oleghe, Efewongbe Primary Care Unavailable [facility] SOFT WORK WRAPPER LAYER AND EXAMINERTin Attending Unavailable Oleghe, Efewongbe Referring Unavailable Oleghe, Efewongbe Primary Care Unavailable Oleghe, Efewongbe Attending Unavailable Oleghe, Efewongbe Referring Unavailable Oleghe, Efewongbe Primary Care Unavailable Oleghe, Efewongbe Referring Unavailable Oleghe, Efewongbe Attending Unavailable Oleghe, Efewongbe Primary Care Unavailable Oleghe, Efewongbe Attending Unavailable Oleghe, Efewongbe Referring Unavailable Oleghe, Efewongbe Primary Care Unavailable Noemi Virgen Attending Unavailable PhillipajoMaday rhodese Attending Unavailabl e Nagajothi, Nagapradee Referring Unavailabl e Oleghe, Efewongbe Primary Care Unavailable Oleghe, Efewongbe Primary Care Unavailable Noemi Virgen Attending Unavailable Oleghe, Efewongbe Primary Care Unavailable Tin Navarro NP Attending Unavailable Oleghe, Efewongbe Referring Unavailable Oleghe, Efewongbe Primary Care Unavailable Misti Williamson NP Attending Unavailable Oleghe, Efewongbe Referring Unavailable Oleghe, Efewongbe Primary Care Unavailable Misti Williamson NP Attending Unavailable Oleghe, Efewongbe Referring Unavailable Oleghe, Efewongbe Primary Care Unavailable Noemi Virgen Attending Unavailable Oleghe, Efewongbe Primary Care Unavailable Noemi Virgen Attending Unavailable Oleghe, Efewongbe Primary Care Unavailable Franchesca [...] Care Unavailable Oleghe, Efewongbe Primary Care Unavailable Oleghe, Efewongbe Attending Unavailable Oleghe, Efewongbe Referring Unavailable Oleghe, Efewongbe Primary Care Unavailable Teri BRICEÑO, Misti Attending Unavailable Oleghe, Efewongbe Referring Unavailable Oleghe, Efewongbe Referring Unavailable Oleghe, Efewongbe Attending Unavailable Oleghe, Efewongbe Primary Care Unavailable Oleghe, Efewongbe Attending Unavailable Oleghe, Efewongbe Primary Care Unavailable Oleghe, Efewongbe Referring Unavailable Oleghe, Efewongbe Attending Unavailable Oleghe, Efewongbe Referring Unavailable Oleghe, Efewongbe Primary Care Unavailable Oleghe, Efewongbe Attending Unavailable Oleghe, Efewongbe Referring Unavailable Oleghe, Efewongbe Primary Care Unavailable Allergies Allergy Classification Reported Allergen(s) Allergy Type Date of Onset Reaction(s) Facility busPIRone (1 source) busPIRone Drug Allergy 8 Other: See Comments [facility] Work Phone: Cinnamon Preparation (1 source) Cinnamon Preparation Drug Allergy 8 [facility] DULoxetine (1 source) DULoxetine Drug Allergy 8 Other: See Comments [facility] (12 sources) Cinnamon Preparation; Translations: [CINNAMON] Drug Allergy 8 [facility] (1 source) busPIRone Drug Allergy 8 Other: See Comments [facility] Work Phone: (9 sources) DULoxetine; Translations: [DULOXETINE] Drug Allergy 8 Other: See Comments [facility] (1 source) Cinnamon Preparation Drug Allergy 5 [facility] Repository Medications Current Medications Medication Drug Class(es) Dates Sig (Normalized) Sig (Original) [id number] 200 actuat albuterol 0.09 mg/actuat metered dose [...] oral solution (9 sources) alpha-Adrenergic Agonist, Uncompetitive J-gwhzlk-M-aspartate Receptor Antagonist, Sigma-1 Agonist Start: 04-01-2018 take 5 mL by mouth four times daily as needed Oxpweqlvplrazrh-Ffrkqfucl-SW (BROMFED DM) 2-30-10 mg/5 mL syrup Indications: [...] daily Fluticasone Propionate Active 0 .ROUTE .COMPLEX 16 December 26, 2022 3:00pm instill 2 sprays [...] 40 mg tablet 04/10/2024 Active polymyxin b 09804 unt/ml / trimethoprim 1 mg/ml ophthalmic solution [...] 30 mg oral tablet (3 sources) Uncompetitive K-lymmiv-E-asparta te Receptor Antagonist, Sigma-1 Agonist Start: 04-01-2021 [...] mg iron) tablet Discontinued 0 .ROUTE .COMPLEX January 28, 2022 8:40am September 05, 2022 [...] unspecified] 12-15-2019 Episodic Deficiency and other anemia (2 sources) Iron deficiency anemia, unspecified; Translations: [Iron deficiency anemia, unspecified] Onset: 5 Episodic Deficiency and other anemia (1 source) [...] [Abnormal uterine and vaginal bleeding, unspecified] Onset: 5 Chronic Other female genital disorders (3 sources) [...] source) Polyneuropathy, unspecified; Translations: [Polyneuropathy, unspecified] Onset: 5 Chronic Other non-traumatic joint disorders (3 sources) [...] Classification Problem Date Documented Da te Episodic/Chronic Other screening for suspected conditions (not mental disorders or infectious disease) (4 sources) Patient encounter status; Translations: [Encounter for screening for other suspected endocrine disorder] Onset: 08-16-2024 07-02-2021 Episodic Pulmonary heart disease (12 sources) H/O: pulmonary embolus; Translations: [Personal history of pulmonary embolism] Onset: 05-07-2018 12-15-2019 Episodic Results Test Name Value Interpretation Reference Range Facility [facility] Office Visit Reporton 01-27-2025 [facility] Office Visit Report [facility]'[address], [address] [place] [address] OFFICE VISIT Date of Service: 01/27/25 MR#: [id number] Acct: [id number] Name: MIGUEL MELVIN Rep #: [id number] : 1975 Provider: Dr. Angelita Ma DO Age/Sex: 49/F Location: [facility] [place] Status: Signed Intake Vital Signs 11/07/24 14:11 12/23/24 11:40 01/12/25 10:00 01/27/25 09:06 Height 5 ft 6 in 5 ft 6 in 5 ft 6 in 5 ft 6 in Weight: 252 lb 9 oz BMI 40.7 BP 138/82 H Intake Visit Reasons: TRH BS Cysto *ppu Chief Complaint: Preop Entry Level Programmer Required: No Is patient in pain?: No Allergies cinnamon Allergy (Verified 01/27/25 09:09) Rash Medications ???Medication ???Instructions ???Recorded ???Confirmed ???Type albuterol sulfate 90 mcg/actuation 1 - 2 puff inhalation Q6H PRN 01/27/25 Rx aerosol inhaler shortness of breath or wheezing #8.5 grams hydroxyzine HCl 25 mg tablet 25 mg PO BID PRN anxiety #30 tabs 12/08/23 01/27/25 Rx hydrocortisone 2.5 % topical cream 1 applic topical BID PRN rash 01/27/25 Rx #453.6 grams atorvastatin 40 mg tablet 40 mg PO QHS #90 tabs 08/30/2410/14 Rx carvedilol 3.125 mg tablet 3.125 mg PO BID #180 tabs 08/30/24 01/27/25 Rx clopidogrel 75 mg tablet 75 mg PO DAILY #90 tabs 08/30/24 1 03/29/24 Rx losartan 25 mg tablet 25 mg PO QDAY blood pressure #90 0 08/30/24 01/27/25 Rx tabs folic acid 1 mg tablet 1 mg PO DAILY supplement #90 tabs 09/05/24 01/27/25 Rx pantoprazole 40 mg tablet,delayed 40 mg PO DAILY #90 tabs 09/05/24 01/27/25 Rx release buspirone 15 mg tablet 15 mg PO TID #270 tabs 09/15/24 Rx cariprazine 3 mg capsule (Vraylar) 3 mg PO DAILY mental health #30 09/15/24 01/27/25 Rx caps escitalopram oxalate 10 mg tablet 10 mg PO DAILY depression #90 tab s 09/15/24 01/27/25 Rx aspirin 81 mg tablet,delayed 81 mg PO DAILY@0800 #90 tabs 12/0901/27/25 Rx release valacyclovir 500 mg tablet 500 mg PO BID #14 tabs 01/10/25 Rx (Valtrex) bupropion HCl 150 mg 24 hr tablet, 150 mg PO QHS 01/19/25 01/27/25 History extended release (Wellbutrin XL) bupropion HCl 150 mg tablet,12 hr 300 mg PO DAILY mental health 01/27/25 History sustained-release ferrous sulfate 325 mg (65 mg 325 mg PO DAILY supplement 5 01/27/25 History iron) tablet (FeroSul) medroxyprogesterone 10 mg tablet 10 mg PO BID 01/19/25 01/27/25 His tory Is last menstrual period known: No Post menopausal: No Patient : No : No PFSH Medical History Loss of hearing Wears glasses Bipolar disorder Depression Anxiety Alcohol use Bladder disease Anemia Low iron High cholesterol Pulmonary embolism Restless legs Migraine headache Epilepsy Smoker Shortness of breath on exertion Hypertension History of echocardiogram Cardiology follow-up encounter History of irregular heartbeat Neuropathy Hypersomnolence Heart attack Cough Borderline type 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 Dermatitis Anxiety and depression Bilateral primary osteoarthritis of knee Knee pain, bilateral Abdominal wall abscess Sinusitis Screening for thyroid disorder COVID-19 Right elbow pain Swelling of thyroid gland Enlarged uterus Osteoarthritis of both knees GERD (gastroesophageal reflux disease) Depression Anxiety Surgical History History of cardiac catheterization Stented coronary artery (11/12/23) [place] teeth removed History of History of tubal ligation Family History Grandmother Cancer Grandfather Dementia Other Depression with anxiety Social History household members: children housing: house number of children: 4 current occupational status: employed current occupation: [employer] history of recent travel: No sexually active: Yes Smoking Status: Current every day smoker tobacco type: cigarettes Tobacco: How many years used: 15 how [...] home: Yes additional social history: single HPI TRH BS Cysto *ppu Details: The patient is a 49-year-old (one , 3 vag) female presenting with abnormal uterine bleeding and for (more content not included)... Normal [facility] 12 Lead EKGon 01-25-2025 [address] [facility] Cardiovascular Services [address] [place] [address] 12 Lead EKG 01/25/25 0917 MR#: [id number] Acct: [id number] Name: MIGUEL MELVIN Rep #: [id number] : 1975 49 From: Omero Martinez MD Attending Dr: Dr. Angelita Lucio DO Statu s: PRE SDC Ordering Dr: Angelita Lucio DO Date: 5 Location: [facility] Sex: F C Admitted: Test Reason : PREOP Blood Pressure : */* mmHG Vent. Rate : 78 BPM Atrial Rate : 78 BPM P-R Int : 168 ms QRS Dur : 126 ms QT Int : 438 ms P-R-T Axes : 67 87 42 degrees QTcB Int : 499 ms Normal sinus rhythm Right bundle branch block Abnormal ECG Confirmed by Omero Martinez ([id number]), editor city MIKA ULLOA ([id number]) on 01/25/2025 12:40:58 PM Referred By: Angelita Lucio Confirmed By: Omero Martinez 01/25/25 1241 Date Omero Martinez MD CC: Dr. Princess Baca MD; Dr. Angelita Lucio, DO Signed Normal [facility] CBC W/Diff, Automatedon 11-0 Anisocytosis Ql (Bld) 2+ Normal [facility] Comment on above: Order Comment: CBCD- DUPLICATE ORDER W/ OLEGHE Performed By: #### L 100.0100 #### [facility] [address] [place], [address] MICROCYTIC 1+ Normal [facility] Comment on above: Order Comment: CBCD- DUPLICATE ORDER W/ OLEGHE Performed By: #### L 100.0100 #### [facility] [address] [place], [address] OVALOCYTE RARE Normal [facility] Comment on above: Order Comment: CBCD- DUPLICATE ORDER W/ OLEGHE Performed By: #### L 100.0100 #### [facility] [address] [place], [address] POLYCHROMASIA 1+ Normal [facility] Comment on above: Order Comment: CBCD- DUPLICATE ORDER W/ OLEGHE Performed By: #### L 100.0100 #### [facility] [address] [place], [address] SMEAR COMMENT SCANNED [facility] Comment on above: Order Comment: CBCD- DUPLICATE ORDER W/ OLEGHE Performed By: #### L 100.0100 #### [facility] [address] [place], [address] CBC-Complete Blood Cnt No Di ffon 01-25-2025 HCT Normal 37-47 [facility] Comment on above: Result Comment: CBCD -DUPLICATE ORDER W/ OLEGHE Performed By: #### L 100.0500, BTSPAT, L500.4050 #### [facility] [address] [place], [address] HGB Normal 12.0-15.0 [facility] Comment on above: Result Comment: CBCD -DUPLICATE ORDER W/ OLEGHE Performed By: #### L 100.0500, BTSPAT, L500.4050 #### [facility] [address] [place], [address] MCH Normal 27.0-32.0 [facility] Comment on above: Result Comment: CBCD -DUPLICATE ORDER W/ OLEGHE Performed By: #### L 100.0500, BTSPAT, L500.4050 #### [facility] [address] [place], [address] MCHC Normal 32-36 [facility] Comment on above: Result Comment: CBCD -DUPLICATE ORDER W/ OLEGHE Performed By: #### L 100.0500, BTSPAT, L500.4050 #### [facility] [address] [place], [address] MCV Normal 81-99 [facility] Comment on above: Result Comment: CBCD -DUPLICATE ORDER W/ OLEGHE Performed By: #### L 100.0500, BTSPAT, L500.4050 #### [facility] [address] [place], [address] PLT Normal 150-450 [facility] Comment on above: Result Comment: CBCD -DUPLICATE ORDER W/ OLEGHE Performed By: #### L 100.0500, BTSPAT, L500.4050 #### [facility] [address] [place], [address] RBC Normal 4.2-5.4 [facility] Comment on above: Result Comment: CBCD -DUPLICATE ORDER W/ OLEGHE Performed By: #### L 100.0500, BTSPAT, L500.4050 #### [facility] [address] [place], [address] RDW CV Normal 11.6-14.6 [facility] Comment on above: Result Comment: CBCD -DUPLICATE ORDER W/ OLEGHE Performed By: #### L 100.0500, BTSPAT, L500.4050 #### [facility] [address] [place], [address] RDW SD Normal 35.1-43.9 [facility] Comment on above: Result Comment: CBCD -DUPLICATE ORDER W/ OLEGHE Performed By: #### L 100.0500, BTSPAT, L500.4050 #### [facility] [address] [place], [address] WBC Normal 4.4-11.0 [facility] Comment on above: Result Comment: CBCD -DUPLICATE ORDER W/ OLEGHE Performed By: #### L 100.0500, BTSPAT, L500.4050 #### [facility] [address] [place], [address] Comprehensive Metabolic Prof ilon 01-25-2025 Albumin [Mass/Vol] 4.3 g/dL Normal 3.5-5.0 [facility] Comment on above: Order Comment: CBCD- DUPLICATE ORDER W/ OLEGHE Performed By: #### L 100.0500, BTSPAT, L500.4050 #### [facility] [address] [place], [address] Albumin/Globulin [Mass ratio] 1.4 {ratio} Normal 0.9-2.4 [facility] Comment on above: Order Comment: CBCD- DUPLICATE ORDER W/ OLEGHE Performed By: #### L 100.0500, BTSPAT, L500.4050 #### [facility] [address] [place], [address] ALK PHOS 95 U/L Normal 35-104 [facility] Comment on above: Order Comment: CBCD- DUPLICATE ORDER W/ OLEGHE Performed By: #### L 100.0500, BTSPAT, L500.4050 #### [facility] [address] [place], [address] ALT [Catalytic activity/Vol] 11 U/L Normal <=34 [facility] Comment on above: Order Comment: CBCD- DUPLICATE ORDER W/ OLEGHE Performed By: #### L 100.0500, BTSPAT, L500.4050 #### [facility] [address] [place], [address] AST [Catalytic activity/Vol] 14 U/L Normal <=31 [facility] Comment on above: Order Comment: CBCD- DUPLICATE ORDER W/ OLEGHE Performed By: #### L 100.0500, BTSPAT, L500.4050 #### [facility] [address] [place], [address] Bilirubin [Mass/Vol] 0.28 mg/dL Normal 0.00-1.30 [facility] Comment on above: Order Comment: CBCD- DUPLICATE ORDER W/ OLEGHE Performed By: #### L 100.0500, BTSPAT, L500.4050 #### [facility] [address] [place], [address] BUN/CRE 19.5 RATIO Normal 10-20 [facility] Comment on above: Order Comment: CBCD- DUPLICATE ORDER W/ OLEGHE Performed By: #### L 100.0500, BTSPAT, L500.4050 #### [facility] [address] [place], [address] Calcium [Mass/Vol] 9.4 mg/dL Normal 7.6-11.0 [facility] Comment on above: Order Comment: CBCD- DUPLICATE ORDER W/ OLEGHE Performed By: #### L 100.0500, BTSPAT, L500.4050 #### [facility] [address] [place], [address] Chloride [Moles/Vol] 105 mmol/L Normal 98-108 [facility] Comment on above: Order Comment: CBCD- DUPLICATE ORDER W/ OLEGHE Performed By: #### L 100.0500, BTSPAT, L500.4050 #### [facility] [address] [place], [address] CO2 [Moles/Vol] 23.1 mmol/L Normal 21.0-32.0 [facility] Comment on above: Order Comment: CBCD- DUPLICATE ORDER W/ OLEGHE Performed By: #### L 100.0500, BTSPAT, L500.4050 #### [facility] [address] [place], [address] Creatinine [Mass/Vol] 0.85 mg/dL Normal 0.70-1.20 [facility] Comment on above: Order Comment: CBCD- DUPLICATE ORDER W/ OLEGHE Performed By: #### L 100.0500, BTSPAT, L500.4050 #### [facility] [address] [place], [address] GAP 12 Normal 5-15 [facility] Comment on above: Order Comment: CBCD- DUPLICATE ORDER W/ OLEGHE Performed By: #### L 100.0500, BTSPAT, L500.4050 #### [facility] [address] [place], [address] GFR/1.73 sq M.predicted among non-blacks MDRD (S/P/Bld) [Vol rate/Area] 85 mL/min/{1.73_m2} Normal >60 [facility] Comment on above: Order Comment: CBCD- DUPLICATE ORDER W/ OLEGHE Result Comment: mL/m in/1.73m2 CKD-EPI Creatinine Equation (2020) Performed By: #### L 100.0500, BTSPAT, L500.4050 #### [facility] [address] [place], [address] Globulin (S) [Mass/Vol] 3.0 g/dL Normal 2.2-4.2 [facility] Comment on above: Order Comment: CBCD- DUPLICATE ORDER W/ OLEGHE Performed By: #### L 100.0500, BTSPAT, L500.4050 #### [facility] [address] [place], [address] Glucose [Mass/Vol] 180 mg/dL High 70-99 [facility] Comment on above: Order Comment: CBCD- DUPLICATE ORDER W/ OLEGHE Performed By: #### L 100.0500, BTSPAT, L500.4050 #### [facility] [address] [place], [address] Potassium [Moles/Vol] 3.8 mmol/L Normal 3.3-5.1 [facility] Comment on above: Order Comment: CBCD- DUPLICATE ORDER W/ OLEGHE Performed By: #### L 100.0500, BTSPAT, L500.4050 #### [facility] [address] [place], [address] Sodium [Moles/Vol] 140 mmol/L Normal 133-145 [facility] Comment on above: Order Comment: CBCD- DUPLICATE ORDER W/ OLEGHE Performed By: #### L 100.0500, BTSPAT, L500.4050 #### [facility] [address] [place], [address] T PROT 7.2 g/dL Normal 5.9-8.4 [facility] Comment on above: Order Comment: CBCD- DUPLICATE ORDER W/ OLEGHE Performed By: #### L 100.0500, BTSPAT, L500.4050 #### [facility] [address] [place], [address] Urea nitrogen [Mass/Vol] 17 mg/dL Normal 4-19 [facility] Comment on above: Order Comment: CBCD- DUPLICATE ORDER W/ OLEGHE Performed By: #### L 100.0500, BTSPAT, L500.4050 #### [facility] [address] [place], [address] MR/PATDEMIon 01-25-2025 MR/PAT.DEMETRIO [facility] Medical Records Department [address] [place] [address] PAT - Anesthesia 01/25/25 1233 MR#: [id number] Acct: [id number] Name: MIGUEL MELVIN Rep #: [id number] : 1975 49 From: Mike Paulino MD PCP: Dr. Princess Baca MD Status:PRE [facility] [place] Race: C [place] [facility] [place] Pre-Assessment Diagnosis/Proposed Procedure Planned Operative Procedure(s): TOTAL ROBOTIC HYSTERECTOMY BSO CYSTO Anesthesia History Anesthesia History - follow up specialist: Anesthesia History - follow up specialist Hx Hospitalization No 01/19/25 15:33 Any Problems With Anesthesia No: NO SURGERY HX 01/19/25 15:33 Cholinesterase deficiency No 01/19/25 15:33 You/Your Family Experience No 01/19/25 15:33 fever (hyperthermia) with Relationship Recent Exposure to Contagious Disease Does patient have nerve No 01/19/25 15:33 stimulator Patient instructed to have device shut off --Does patient have Pacemaker or ICD? When Was Last Pacemaker Check QUESTION #4 FULL TEXT: You/Your Family Experience fever (hyperthermia) with Anesthesia Last Oral Intake Last Oral intake: Last Oral Intake NPO since Meds taken in AM with sips of water? Meds patient instructed to take am of surgery PONV PONV - follow up specialist: PONV - follow up specialist Female Yes 01/19/25 15:33 HX of Motion Sickness Yes 01/19/25 15:33 HX of N/V After Surgery No 01/19/25 15:33 Non-Smoker No 01/19/25 15:33 Duration of Surgery greater Yes 01/19/25 15:33 than 60 minutes Number of Risk Factors 3 01/19/25 15:33 PONV Score Moderate Risk 01/19/25 15:33 Height Weight Height Weight: Anesthesia: Height Weight Height 5 ft 6 in 11/07/24 14:11 Respiratory Assessment Respiratory Assessment - follow up specialist: Respiratory Tract Infection Hx - follow up specialist Hx Respiratory Tract Infection No 01/19/25 15:33 STOP Sleep Apnea STOP Sleep Apnea - follow up specialist: STOP Sleep Apnea - follow up specialist Hx Hypertension Yes: CONTROLLED WITH MED 01/19/25 15:33 Hx Sleep Apnea No 01/19/25 15:33 CPAP BIPAP Do you snore loudly (louder No 01/19/25 15:33 than talking or can be heard Do you often feel tired/ Yes 01/19/25 15:33 fatigued/ sleepy during daytime? Has anyone observed you stop No 01/19/25 15:33 breathing during sleep? STOP Results Positive 01/19/25 15:33 QUESTION #5 FULL TEXT : Do you snore loudly (louder than talking or can be heard through closed doors)? 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 Specify any problems Hx of Preganancy in last 3 No 01/19/25 15:33 Months Nurse Filling Out Transfusion DSCHRIBER 01/19/25 15:33 Questions: Date: 01/19/25 01/19/25 15:33 Time: 15:35 01/19/25 15:33 Patient unable to answer at this time (ie. confused, unrespo /Reproductio n History /Reproductiv e History - follow up specialist: /Reproductiv e Hx- follow up specialist Hx Now No 01/19/25 15:33 Gestational Age (in weeks): EDC: Hx Hx Para Hx Section SAB No 01/19/25 15:33 Does the father of the baby or his family experience fever w Father of the baby Malignant Hypertension history comment ON LICENSE OF [facility] Medical History (Updated 01/19/25 @ 15:42 by Emerald Abdalla) Loss of hearing Wears glasses Bipolar disorder Depression Anxiety Alcohol use Bladder disease Anemia Low iron High cholesterol Pulmonary embolism Restless legs Migraine headache Epilepsy Smoker Shortness of breath on exertion Hypertension History of echocardiogram Cardiology follow-up encounter History of irregular heartbeat Neuropathy Hypersomnolence Heart attack Cough Borderline type 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 Dermatitis Anxiety and depression Bilateral primary osteoarthritis of knee Knee pain, bilateral Abdominal wall abscess Sinusitis (more content not included)... Normal [facility] Magnesiumon 01-25-2025 Magnesium [Mass/Vol] 2.1 mg/dL Normal 1.5-2.2 [facility] Comment on above: Order Comment: CBCD- DUPLICATE ORDER W/ OLEE Performed By: #### L 501.5200 #### [facility] [address] [place], [address] Type AND Screen - PAT ONLYon 01-25-2025 ABO and Rh group Nom (Bld) Blood group O Rh(D) positive Normal [facility] Comment on above: Order Comment: CBCD- DUPLICATE ORDER W/ OLEE Surgery Date: 01/25/25 Reason for Laboratory Test PREOP [id number] 12/08/24 No N Y S HYSTERECTOMY BSO Performed By: #### L 100.0500, BTSPAT, L500.4050 #### [facility] [address] [place], [address] Basic Metabolic Profile (BMP )on 01-12-2025 BUN/CRE 11.0 RATIO Normal 10-20 [facility] Comment on above: Performed By: #### L 100.0100 #### [facility] [address] [place], [address] Calcium [Mass/Vol] 9.0 mg/dL Normal 7.6-11.0 [facility] Comment on above: Performed By: #### L 100.0100 #### [facility] [address] [place], [address] Chloride [Moles/Vol] 103 mmol/L Normal 98-108 [facility] Comment on above: Performed By: #### L 100.0100 #### [facility] [address] [place], [address] CO2 [Moles/Vol] 23.1 mmol/L Normal 21.0-32.0 [facility] Comment on above: Performed By: #### L 100.0100 #### [facility] [address] [place], [address] Creatinine [Mass/Vol] 0.74 mg/dL Normal 0.70-1.20 [facility] Comment on above: Performed By: #### L 100.0100 #### [facility] [address] [place], [address] ECRCL 121.57 ml/min Normal 50-250 [facility] Comment on above: Performed By: #### L 100.0100 #### [facility] [address] [place], [address] GAP 12 Normal 5-15 [facility] Comment on above: Performed By: #### L 100.0100 #### [facility] [address] [place], [address] GFR/1.73 sq M.predicted among non-blacks MDRD (S/P/Bld) [Vol rate/Area] 100 mL/min/{1.73_m2} Normal >60 [facility] Comment on above: Result Comment: mL/m in/1.73m2 CKD-EPI Creatinine Equation (2020) Performed By: #### L 100.0100 #### [facility] [address] [place], [address] Glucose [Mass/Vol] 135 mg/dL High 70-99 [facility] Comment on above: Performed By: #### L 100.0100 #### [facility] [address] [place], [address] Potassium [Moles/Vol] 3.6 mmol/L Normal 3.3-5.1 [facility] Comment on above: Performed By: #### L 100.0100 #### [facility] [address] [place], [address] Sodium [Moles/Vol] 138 mmol/L Normal 133-145 [facility] Comment on above: Performed By: #### L 100.0100 #### [facility] [address] [place], [address] Urea nitrogen [Mass/Vol] 8 mg/dL Normal 4-19 [facility] Comment on above: Performed By: #### L 100.0100 #### [facility] [address] [place], [address] CBC W/Diff, Automatedon 10-2 Anisocytosis Ql (Bld) 2+ Normal [facility] Comment on above: Performed By: #### L 100.0100 #### [facility] [address] [place], [address] SMEAR COMMENT SCANNED Normal [facility] Comment on above: Performed By: #### L 100.0100 #### [facility] [address] [place], [address] Emergency Department Summary on 01-12-2025 Emergency Department Summary [facility] Medical Records Department [address] [place] [address] Emergency Department Summary 01/12/25 MR#: [id number] Acct: [id number] Name: MIGUEL MELVIN Rep #: [id number] : 1975 49 From: Christoph Swartz DO PCP: Dr. Princess Baca MD Status:DEP ER Location: ED HPI HPI - Female History of Present Illness Chief Complaint: Vag Bleeding Informant: patient Bleeding Issue: Positive for Vaginal bleeding Onset: Weeks (2.5) Timing: Continuous Current Severity: Heavy Maximum Severity: Heavy Associated Symptoms Associated Symptoms: Negative for Dysuria, Frequency or Urgency Narrative Narrative: Patient presents with vaginal bleeding that has been constant for the past 2-1/2 weeks. Patient states that she is passing large clots. Patient states nothing makes it worse and nothing makes it better. Patient is concerned that she may be anemic and may need a blood transfusion. Patient denies any abdominal pain or cramping. Patient denies any dysuria, frequency, or hematuria. Patient denies any fevers or chills. PFSH PFSH Medical History Iron deficiency anemia NIDHI (obstructive sleep apnea) Dermatitis Neuropathy Hypersomnolence Anemia Heart attack Cough Borderline type 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 URI (upper [...] 1 - 2 puff inhalation Q6H PRN Unknown Rx aerosol inhaler shortness of breath or wheezing #8.5 grams hydroxyzine HCl 25 mg tablet 25 mg PO BID PRN anxiety #30 tabs 12/08/23 Unknown Rx hydrocortisone 2.5 % topical cream 1 applic topical BID PRN rash Unknown Rx #453.6 grams atorvastatin 40 mg tablet 40 mg PO QHS #90 tabs 08/30/24 Unk nown Rx carvedilol 3.125 mg tablet 3.125 mg PO BID #180 tabs 08/30/24 Unknown Rx clopidogrel 75 mg tablet 75 mg PO DAILY #90 tabs 08/30/24 U nknown Rx losartan 25 mg tablet 25 mg PO QDAY blood pressure #90 0 08/30/24 Unknown Rx tabs bupropion HCl 150 mg tablet,12 hr See Rx Instructions .Route Unknown Rx sustained-release .COMPLEX mental health #270 TABLET S ferrous sulfate 325 mg (65 mg See Rx Instructions .Route 5 Unknown Rx iron) tablet (FeroSul) .COMPLEX supplement #90 tabs folic acid 1 mg tablet 1 mg PO DAILY supplement #90 tabs 09/05/24 Unknown Rx pantoprazole 40 mg tablet,delayed 40 mg PO DAILY #90 tabs 09/05/24 Unknown Rx release buspirone 15 mg tablet 15 mg PO TID #270 tabs 09/15/24 Un known Rx cariprazine 3 mg capsule (Vraylar) 3 mg PO DAILY mental health #30 09/15/24 Unknown Rx caps escitalopram oxalate 10 mg tablet 10 mg PO DAILY depression #90 tab s 09/15/24 Unknown Rx aspirin 81 mg tablet,delayed 81 mg PO DAILY@0800 #90 tabs 12/09 Unknown Rx release medroxyprogesterone 10 mg tablet 10 mg PO QDAY #60 tabs 01/03/25 Un known Rx valacyclovir 500 mg tablet 500 mg PO BID #14 tabs 01/10/25 Un known Rx (Valtrex) Allergy/AdvReac Type Severity Reaction Status Date / Time cinnamon Allergy Rash Verified 12/23/24 11:37 Family History Grandmother Cancer Grandfather Dementia Other Depression with anxiety Surgical History Stented coronary artery (11/12/23) [place] teeth removed History of History of tubal ligation Social History household members: children housing: house number of children: 4 current occupational status: employed current occupation: [employer] history of recent travel: No sexually active: Yes Smoking Status: Current every day smoker tobacco type: cigarettes Tobacco: How many years used: 15 how [...] at home: Yes additional social history: single ROS ROS ED Constitutional Constitutional ED: Denies chills or fever(s) Eyes Eyes: Denies blurry vi (more content not included)... Normal [facility] Partial Thromboplast Timeon 01-12-2025 aPTT Coag (Bld) [Time] 26.2 s Normal 24.1-36.2 [facility] Comment on above: Performed By: #### L 100.0100 #### [facility] [address] [place], [address] Prothrombin Time w/INRon INR Coag (PPP) [Relative time] 0.9 {INR} Normal [facility] Comment on above: Performed By: #### L 100.0100 #### [facility] [address] [place], [address] PT Coag (PPP) [Time] 12.5 s Normal 11.7-14.9 [facility] Comment on above: Performed By: #### L 100.0100 #### [facility] [address] [place], [address] Type AND Screenon 01-12-2025 Ab SCREEN GEL Negative Normal [facility] Comment on above: Order Comment: CBCD- DUPLICATE ORDER W/ OLEGHE Performed By: #### L 100.0100 #### [facility] [address] [place], [address] BRCon 12-08-2024 RC Normal [facility] Comment on above: Result Comment: [id number] OP RC TRANSFUSED 12/09/24 0813 [id number] OP RC TRANSFUSED 12/09/24 0958 Performed By: #### L 100.0500, BTSPAT, L500.4050 #### [facility] [address] [place], [address] Type AND Screenon 12-08-2024 Ab SCREEN GEL Negative Normal [facility] Comment on above: Order Comment: N011/21 8NYA Performed By: #### L 100.0500, BTSPAT, L500.4050 #### [facility] [address] [place], [address] ABO and Rh group Nom (Bld) Blood group O Rh(D) positive Normal [facility] Comment on above: Order Comment: N011/21 8NYA Performed By: #### L 100.0500, BTSPAT, L500.4050 #### [facility] [address] [place], [address] Basic Metabolic Profile (BMP )on 11-28-2024 BUN/CRE 9.9 RATIO Low 10-20 [facility] Comment on above: Performed By: #### L 501.9985, L100.0100, L500.2500 #### [facility] [address] [place], [address] Calcium [Mass/Vol] 9.2 mg/dL Normal 7.6-11.0 [facility] Comment on above: Performed By: #### L 501.9985, L100.0100, L500.2500 #### [facility] [address] [place], [address] Chloride [Moles/Vol] 106 mmol/L Normal 98-108 [facility] Comment on above: Performed By: #### L 501.9985, L100.0100, L500.2500 #### [facility] [address] [place], [address] CO2 [Moles/Vol] 22.2 mmol/L Normal 21.0-32.0 [facility] Comment on above: Performed By: #### L 501.9985, L100.0100, L500.2500 #### [facility] [address] [place], [address] Creatinine [Mass/Vol] 0.88 mg/dL Normal 0.70-1.20 [facility] Comment on above: Performed By: #### L 501.9985, L100.0100, L500.2500 #### [facility] [address] [place], [address] GAP 11 Normal 5-15 [facility] Comment on above: Performed By: #### L 501.9985, L100.0100, L500.2500 #### [facility] [address] [place], [address] GFR/1.73 sq M.predicted among non-blacks MDRD (S/P/Bld) [Vol rate/Area] 82 mL/min/{1.73_m2} Normal >60 [facility] Comment on above: Result Comment: mL/m in/1.73m2 CKD-EPI Creatinine Equation (2020) Performed By: #### L 501.9985, L100.0100, L500.2500 #### [facility] [address] [place], [address] Glucose [Mass/Vol] 109 mg/dL High 70-99 [facility] Comment on above: Performed By: #### L 501.9985, L100.0100, L500.2500 #### [facility] [address] [place], [address] Potassium [Moles/Vol] 4.0 mmol/L Normal 3.3-5.1 [facility] Comment on above: Performed By: #### L 501.9985, L100.0100, L500.2500 #### [facility] [address], [address] Sodium [Moles/Vol] 139 mmol/L Normal 133-145 [facility] Comment on above: Performed By: #### L 501.9985, L100.0100, L500.2500 #### [facility] [address] [place], [address] Urea nitrogen [Mass/Vol] 9 mg/dL Normal 4-19 [facility] Comment on above: Performed By: #### L 501.9985, L100.0100, L500.2500 #### [facility] [address] [place], [address] CBC W/Diff, Automatedon 09-0 8-2024 Absolute Lymph 1.47 X10 3/uL Normal 0.83-4.51 [facility] Comment on above: Performed By: #### L 501.9985, L100.0100, L500.2500 #### [facility] [address] [place], [address] Absolute Neut 2.6 X10 3/uL Normal 2.0-7.7 [facility] Comment on above: Performed By: #### L 501.9985, L100.0100, L500.2500 #### [facility] [address] [place], [address] Basophils/100 WBC (Bld) 0.8 % Normal 0-1 [facility] Comment on above: Performed By: #### L 501.9985, L100.0100, L500.2500 #### [facility] [address] [place], [address] Eosinophils/100 WBC (Bld) 3.6 % Normal 0-5 [facility] Comment on above: Performed By: #### L 501.9985, L100.0100, L500.2500 #### [facility] [address] [place], [address] Erythrocyte distribution width (RBC) [Ratio] 18.4 % High 11.6-14.6 [facility] Comment on above: Performed By: #### L 501.9985, L100.0100, L500.2500 #### [facility] [address] [place], [address] Hematocrit (Bld) [Volume fraction] 28.6 % Low 37-47 [facility] Comment on above: Performed By: #### L 501.9985, L100.0100, L500.2500 #### [facility] [address] [place], [address] Hemoglobin (Bld) [Mass/Vol] 7.8 g/dL Low 12.0-15.0 [facility] Comment on above: Performed By: #### L 501.9985, L100.0100, L500.2500 #### [facility] [address] [place], [address] IG% 0.200 Normal 0.0-0.9 [facility] Comment on above: Result Comment: IG% - Immature Granulocytes (promyelocytes, myelocytes and metamyelocytes) > 1% indicates that a LEFT SHIFT is Present. Performed By: #### L 501.9985, L100.0100, L500.2500 #### [facility] [address] [place], [address] Lymphocytes/100 WBC (Bld) 30.9 % Normal 19-41 [facility] Comment on above: Performed By: #### L 501.9985, L100.0100, L500.2500 #### [facility] [address] [place], [address] MCH (RBC) [Entitic mass] 19.2 pg Low 27.0-32.0 [facility] Comment on above: Performed By: #### L 501.9985, L100.0100, L500.2500 #### [facility] [address] [place], [address] MCHC (RBC) [Mass/Vol] 27.3 g/dL Low 32-36 [facility] Comment on above: Performed By: #### L 501.9985, L100.0100, L500.2500 #### [facility] [address] [place], [address] MCV (RBC) [Entitic vol] 70.4 fL Low 81-99 [facility] Comment on above: Performed By: #### L 501.9985, L100.0100, L500.2500 #### [facility] [address] [place], [address] Monocytes/100 WBC (Bld) 9.0 % Normal 0-10 [facility] Comment on above: Performed By: #### L 501.9985, L100.0100, L500.2500 #### [facility] [address] [place], [address] Neutrophils/100 WBC (Bld) 55.5 % Normal 47-70 [facility] Comment on above: Performed By: #### L 501.9985, L100.0100, L500.2500 #### [facility] [address] [place], [address] Nucleated RBC (Bld) [#/Vol] 0 10*3/uL Normal 0-5 [facility] Comment on above: Performed By: #### L 501.9985, L100.0100, L500.2500 #### [facility] [address] [place], [address] Platelet mean volume (Bld) [Entitic vol] 11.0 fL Normal 6.2-12.0 [facility] Comment on above: Performed By: #### L 501.9985, L100.0100, L500.2500 #### [facility] [address] [place], [address] Platelets (Bld) [#/Vol] 270 10*3/uL Normal 150-450 [facility] Comment on above: Performed By: #### L 501.9985, L100.0100, L500.2500 #### [facility] [address] [place], [address] RBC (Bld) [#/Vol] 4.06 10*6/uL Low 4.2-5.4 [facility] Comment on above: Performed By: #### L 501.9985, L100.0100, L500.2500 #### [facility] [address] [place], [address] RDW SD 45.8 fl High 35.1-43.9 [facility] Comment on above: Performed By: #### L 501.9985, L100.0100, L500.2500 #### [facility] [address] [place], [address] WBC (Bld) [#/Vol] 4.8 10*3/uL Normal 4.4-11.0 [facility] Comment on above: Performed By: #### L 501.9985, L100.0100, L500.2500 #### [facility] [address] [place], [address] Hemoglobin A1con 11-28-2024 HbA1c (Bld) [Mass fraction] 5.8 % High <=5.6 [facility] Comment on above: Result Comment: Norm al < 5.7 % Prediabetic 5.7 - 6.4 % Diabetic >or= 6.5 % Please note range changes. Performed By: #### L 501.9985, L100.0100, L500.2500 #### [facility] [address] [place], [address] Internal Medicine Office Vis britni 11-07-2024 Internal Medicine Office Visit [facility] [address] [place] [address] [address] [place] [address] OFFICE VISIT Date of Service: 11/07/24 MR#: [id number] Acct: [id number] Name: MIGUEL MELVIN Rep #: [id number] : 1975 Provider: Dr. Princess jesus MD Age/Sex: 49/F Location: [facility] Status: Signed Intake Vital [...] M FU Chief Complaint: 3 m fu Entry Level Programmer Required: No Accompanied by: Self Is patient [...] 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 URI (upper respiratory infection) Bipolar depression Anxiety and depression Bilateral primary osteoarthritis of knee Knee pain, bilateral Abdominal wall abscess Bronchitis Sinusitis Screening for thyroid disorder COVID-19 Right elbow pain Swelling of thyroid gland Enlarged uterus Osteoarthritis of both knees GERD (gastroesophageal reflux disease) Depression Anxiety Alcohol abuse Surgical History Stented coronary artery (11/12/23) [place] teeth removed History of History of tubal [...] not included)... Normal [facility] Office Visit Reporton 11-04-2024 [facility] Office Visit Report [facility] [address] [place] [address], [address] [place] [address] OFFICE VISIT Date of Service: 11/04/24 MR#: [id number] Acct: [id number] Name: MIGUEL MELVIN Rep #: [id number] : 1975 Provider: Dr. Angelita Ma DO Age/Sex: 49/F Location: [facility] [place] [place] Status: Signed Intake Vital Signs 09/15/24 14:59 11/04/24 13:18 11/04/24 13:20 Height 5 ft 6 in 5 ft 6 in 5 ft 6 in Weight: 258 lb 7 oz BMI 41.7 BP 126/79 H Intake Visit Reasons: Hyst Consult Entry Level Programmer Required: No Is patient in pain?: No [...] 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 URI (upper respiratory infection) Bipolar depression Anxiety and depression Bilateral primary osteoarthritis of knee Knee pain, bilateral Abdominal wall abscess Bronchitis Sinusitis Screening for thyroid disorder COVID-19 Right elbow pain Swelling of thyroid gland Enlarged uterus Osteoarthritis of both knees GERD (gastroesophageal reflux disease) Depression Anxiety Alcohol abuse Surgical History Stented coronary artery (11/12/23) [place] teeth removed History of History of tubal [...] a myocardial infarction in October of the previ (more content not included)... Normal [facility] CNOVon 10-27-2024 CNOV Office Visit ([facility]) MIGUEL MELVIN ([id number]) 1975 F Date Time Provider Department 10/27/24 7:00 PM JAYDA PEÑALOZA During your visit today, we recorded the following information about you: Temperature Pulse Respiration Blood pressure 97.8 degrees 77/minute 18/minute 127/82 Weight 118.2 kg Jayda Peñaloza APRN.[facility] 10/27/2024 7:14 PM Signed [facility] Subjective Miguel Melvin is a 49 year old female. [...] absence due to illness. and Recording using [employer] software for draft documentation of the visit was discussed with the patient/authorized career services representative; all questions welcomed and answered. Patient/authorized career services representative agreed to proceed MDM Procedures Allergies [...] MA 10/27/2024 6:58 PM >> RENZO SPEARS [facility] Oct 27, 2024 6:58 PM Problem List As Of Date 10/27/2024 Noted Resolved Anxiety and depression [F41.9, F32.A] GERD (gastroesophageal reflux disease) [K21.9] Obesity (BMI 30-39.9) [E66.9] Tobacco use [Z72.0] Pulmonary embolus with infarc (more content not included)... Normal [facility] MR/BMS.BPon 09-15-2024 MR/BMS.BP [address], [address] [place] [address] OFFICE VISIT Date of Service: 09/15/24 MR#: [id number] Acct: [id number] Name: MIGUEL MELVIN Rep #: [id number] : 1975 Provider: ROSHAN herzog Age/Sex: 49/F Location: [facility] Status: Signed Intake Vital [...] 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 URI (upper respiratory infection) Bipolar depression Anxiety and depression Bilateral primary osteoarthritis of knee Knee pain, bilateral Abdominal wall abscess Bronchitis Sinusitis Screening for thyroid disorder COVID-19 Right elbow pain Swelling of thyroid gland Enlarged uterus Osteoarthritis of both knees GERD (gastroesophageal reflux disease) Depression Anxiety Alcohol abuse Surgical History Stented coronary artery (11/12/23) [place] teeth removed History of History of tubal [...] patient Chief complaint: Anxiety HPI: Rosa Melvin ( Nikki) is a 48 year old female patient presenting today for a follow up evaluation. Reports she has continued to do [employer] and is continuing to work at [employer] as well. D oes feel fatigued from [...] General Cardiology Visit Reporton Cardiology Visit Report [facility] [address] [place] [address]. [address] [place] [address] OFFICE VISIT Date of Service: 08/30/24 MR#: [id number] Acct: [id number] Name: MIGUEL MELVIN Rep #: [id number] : 1975 Provider: ROSHAN lee Age/Sex: 49/F Location: [facility] [place] [facility] Status: Signed HPI HPI History of [...] 98 Intake Visit Reasons: 3 M FU Entry Level Programmer Required: No Is patient in pain?: No [...] 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 URI (upper respiratory infection) Bipolar depression Anxiety and depression Bilateral primary osteoarthritis of knee Knee pain, bilateral Abdominal wall abscess Bronchitis Sinusitis Screening for thyroid disorder COVID-19 Right elbow pain Swelling of thyroid gland Enlarged uterus Osteoarthritis of both knees GERD (gastroesophageal reflux disease) Depression Anxiety Alcohol abuse Surgical History (Reviewed 08/30/24 @ 14:06 by Franchesca Aquino SOFT WORK WRAPPER LAYER AND EXAMINER, SOFT WORK WRAPPER LAYER AND EXAMINER-C) Stented coronary artery (11/12/23) [place] teeth removed History of History of tubal ligation Family History Grandmother Cancer Grandfather Dementia Other Depression with anxiety Social History (Reviewed 08/30/24 @ 14:06 by Franchesca Aquino SOFT WORK WRAPPER LAYER AND EXAMINER, SOFT WORK WRAPPER LAYER AND EXAMINER-C) household members: children housing: house (more content not included)... Normal [facility] Pelvic w/ Transvaginalon Pelvic w/ Transvaginal [facility] Imaging Services [address] [place], [place] [address] Pelvic w/ Transvaginal MR#: [id number] Acct: [id number] Name: MIGUEL MELVIN Rep #: [id number] : 1975 F 49 From: Jerald Myers MD PCP: Dr. Princess Baca MD Status: REG CLI Study: Pelvic w/ Transvaginal Date of Exam: 08/22/24 Exam# [id number] Ordering Dr: Misti Williamson NP SOFT WORK WRAPPER LAYER AND EXAMINER -C PROCEDURE: PELVIC W/ TRANSVAGINAL 08/22/2024 REASON [...] right ovary. Unremarkable left ovary. Reading Location: [id number] CC: SOFT WORK WRAPPER LAYER AND EXAMINER-C Misti Williamson; Dr. Princess Baca MD Social Group Worker: Signed Normal [facility] Office Visit Reporton 08-16-2024 [facility] [place] Office Visit Report [facility] [address], [address] [place] [address] OFFICE VISIT Date of Service: 08/16/24 MR#: [id number] Acct: [id number] Name: MIGUEL MELVIN Rep #: [id number] : 1975 Provider: ROSHAN bobby Age/Sex: 49/F Location: [facility] [place] Status: Signed Intake Vital Signs 07/27/24 15:59 [...] Reasons: Heavy, frequent menses Chief Complaint: AUB Entry Level Programmer Required: No Is patient in pain?: No [...] 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 URI (upper respiratory infection) Bipolar depression Anxiety and depression Bilateral primary osteoarthritis of knee Knee pain, bilateral Abdominal wall abscess Bronchitis Sinusitis Screening for thyroid disorder COVID-19 Right elbow pain Swelling of thyroid gland Enlarged uterus Osteoarthritis of both knees GERD (gastroesophageal reflux disease) Depression Anxiety Alcohol abuse Surgical History Stented coronary artery (11/12/23) [place] teeth removed History of History of tubal [...] Weight Infant Gen Labor Lgth Anesthesia Del Locatn Provider FOB Unknown Martin 1996 Unknown Care 1996 Unknown Corzohaib 1999 Unknown Kari 2003 HPI Heavy, frequent (more content not included)... Normal [facility] Surgery Specimen Level Lexy 08-16-2024 Surgery Specimen Level IV -------- Patient Age/Sex Location Account Attending Physician -------- MIGUEL MELVIN/F LABSPEC [id number] ROSHAN Lewis -------- Specimen: [id number] Received: 08/16/24 Status: ADELINA De Jesus Num: [id number] Spec Type: ENDOM BX/C Subm Dr: Misti Williamson, MORGANC HEADER OPERATION: Endometrial biopsy PRE-OP DIAGNOSIS: Abnormal uterine bleeding TISSUE SUBMITTED: A- Endometrial lining -------- MICROSCOPIC DIAGNOSIS A. Endometrium, biopsy: * Proliferative endometrium, mildly disordered. MICROSCOPIC DESCRIPTION Slides are reviewed. GROSS DESCRIPTION A. Received in formalin in a container labeled with the patient's name, date of , and with the accompanying paperwork indicating, "EMB" are multiple red-campa fragments of soft tissue admixed with blood and mucus measuring 2.8 x 1.7 x 0.6 cm in aggregate. Submitted in toto in A1-2. [facility] 08-17-2024 CPT: 85084 -------- Patient Age/Sex Location Account Attending Physician -------- [facility] 49[id number] Misti Williamson NP-Pancho -------- Signed (signature on file) Dr. Roopa John MD 08/20/24 1604 -------- Normal [facility] Comment on above: Performed By: #### L 100.0500, BTSPAT, L500.4050 #### [facility] [address] [facility] [facility] [place], [place], [id number] CBC W/Diff, Automatedon 07-21 Absolute Lymph 1.11 X10 3/uL Normal 0.83-4.51 [facility] Comment on above: Performed By: #### L 503.0106, L501.9520, L500.4050, L503.6550, L100.0100, L506.0400, L503.6030 #### [facility] [address] [place], [place], [address] Absolute Neut 8.9 X10 3/uL High 2.0-7.7 [facility] Comment on above: Performed By: #### L 503.0106, L501.9520, L500.4050, L503.6550, L100.0100, L506.0400, L503.6030 #### [facility] [address] [place], [address] Basophils/100 WBC (Bld) 0.2 % Normal 0-1 [facility] Comment on above: Performed By: #### L 503.0106, L501.9520, L500.4050, L503.6550, L100.0100, L506.0400, L503.6030 #### [facility] [address] [place], [address] Eosinophils/100 WBC (Bld) 0.1 % Normal 0-5 [facility] Comment on above: Performed By: #### L 503.0106, L501.9520, L500.4050, L503.6550, L100.0100, L506.0400, L503.6030 #### [facility] [address] [place], [address] Erythrocyte distribution width (RBC) [Ratio] 17.9 % High 11.6-14.6 [facility] Comment on above: Performed By: #### L 503.0106, L501.9520, L500.4050, L503.6550, L100.0100, L506.0400, L503.6030 #### [facility] [address] [place], [address] Hematocrit (Bld) [Volume fraction] 40.5 % Normal 37-47 [facility] Comment on above: Performed By: #### L 503.0106, L501.9520, L500.4050, L503.6550, L100.0100, L506.0400, L503.6030 #### [facility] [address] [place], [address] Hemoglobin (Bld) [Mass/Vol] 12.4 g/dL Normal 12.0-15.0 [facility] Comment on above: Performed By: #### L 503.0106, L501.9520, L500.4050, L503.6550, L100.0100, L506.0400, L503.6030 #### [facility] [address] [place], [address] IG% 0.500 Normal 0.0-0.9 [facility] Comment on above: Result Comment: IG% - Immature Granulocytes (promyelocytes, myelocytes and metamyelocytes) > 1% indicates that a LEFT SHIFT is Present. Performed By: #### L 503.0106, L501.9520, L500.4050, L503.6550, L100.0100, L506.0400, L503.6030 #### [facility] [address] [place], [address] Lymphocytes/100 WBC (Bld) 10.5 % Low 19-41 [facility] Comment on above: Performed By: #### L 503.0106, L501.9520, L500.4050, L503.6550, L100.0100, L506.0400, L503.6030 #### [facility] [address] [place], [address] MCH (RBC) [Entitic mass] 25.3 pg Low 27.0-32.0 [facility] Comment on above: Performed By: #### L 503.0106, L501.9520, L500.4050, L503.6550, L100.0100, L506.0400, L503.6030 #### [facility] [address] [place], [address] MCHC (RBC) [Mass/Vol] 30.6 g/dL Low 32-36 [facility] Comment on above: Performed By: #### L 503.0106, L501.9520, L500.4050, L503.6550, L100.0100, L506.0400, L503.6030 #### [facility] [address] [place], [address] MCV (RBC) [Entitic vol] 82.5 fL Normal 81-99 [facility] Comment on above: Performed By: #### L 503.0106, L501.9520, L500.4050, L503.6550, L100.0100, L506.0400, L503.6030 #### [facility] [address] [place], [address] Monocytes/100 WBC (Bld) 4.4 % Normal 0-10 [facility] Comment on above: Performed By: #### L 503.0106, L501.9520, L500.4050, L503.6550, L100.0100, L506.0400, L503.6030 #### [facility] [address] [place], [address] Neutrophils/100 WBC (Bld) 84.3 % High 47-70 [facility] Comment on above: Performed By: #### L 503.0106, L501.9520, L500.4050, L503.6550, L100.0100, L506.0400, L503.6030 #### [facility] [address] [place], [address] Nucleated RBC (Bld) [#/Vol] 0 10*3/uL Normal 0-5 [facility] Comment on above: Performed By: #### L 503.0106, L501.9520, L500.4050, L503.6550, L100.0100, L506.0400, L503.6030 #### [facility] [address] [place], [address] Platelet mean volume (Bld) [Entitic vol] 11.1 fL Normal 6.2-12.0 [facility] Comment on above: Performed By: #### L 503.0106, L501.9520, L500.4050, L503.6550, L100.0100, L506.0400, L503.6030 #### [facility] [address] [place], [address] Platelets (Bld) [#/Vol] 357 10*3/uL Normal 150-450 [facility] Comment on above: Performed By: #### L 503.0106, L501.9520, L500.4050, L503.6550, L100.0100, L506.0400, L503.6030 #### [facility] [address] [place], [address] RBC (Bld) [#/Vol] 4.91 10*6/uL Normal 4.2-5.4 [facility] Comment on above: Performed By: #### L 503.0106, L501.9520, L500.4050, L503.6550, L100.0100, L506.0400, L503.6030 #### [facility] [address] [place], [address] RDW SD 54.1 fl High 35.1-43.9 [facility] Comment on above: Performed By: #### L 503.0106, L501.9520, L500.4050, L503.6550, L100.0100, L506.0400, L503.6030 #### [facility] [address] [place], [address] WBC (Bld) [#/Vol] 10.6 10*3/uL Normal 4.4-11.0 [facility] Comment on above: Performed By: #### L 503.0106, L501.9520, L500.4050, L503.6550, L100.0100, L506.0400, L503.6030 #### [facility] [address] [place], [address] Comprehensive Metabolic Prof [facility] 08-01-2024 Albumin [Mass/Vol] 4.5 g/dL Normal 3.5-5.0 [facility] Comment on above: Performed By: #### L 501.5200 #### [facility] [address] [place], [address] Albumin/Globulin [Mass ratio] 1.4 {ratio} Normal 0.9-2.4 [facility] Comment on above: Performed By: #### L 501.5200 #### [facility] [address] [place], [address] ALK PHOS 107 U/L High 35-104 [facility] Comment on above: Performed By: #### L 501.5200 #### [facility] [address] [place], [address] ALT [Catalytic activity/Vol] 14 U/L Normal <=34 [facility] Comment on above: Performed By: #### L 501.5200 #### [facility] [address] [place], [address] AST [Catalytic activity/Vol] 13 U/L Normal <=31 [facility] Comment on above: Performed By: #### L 501.5200 #### [facility] [address] [place], [address] Bilirubin [Mass/Vol] 0.29 mg/dL Normal 0.00-1.30 [facility] Comment on above: Performed By: #### L 501.5200 #### [facility] [address] [place], [address] BUN/CRE 13.4 RATIO Normal 10-20 [facility] Comment on above: Performed By: #### L 501.5200 #### [facility] [address] [place], [address] Calcium [Mass/Vol] 9.6 mg/dL Normal 7.6-11.0 [facility] Comment on above: Performed By: #### L 501.5200 #### [facility] [address] [place], [address] Chloride [Moles/Vol] 105 mmol/L Normal 98-108 [facility] Comment on above: Performed By: #### L 501.5200 #### [facility] [address] [place], [address] CO2 [Moles/Vol] 21.2 mmol/L Normal 21.0-32.0 [facility] Comment on above: Performed By: #### L 501.5200 #### [facility] [address] [place], [address] Creatinine [Mass/Vol] 0.73 mg/dL Normal 0.70-1.20 [facility] Comment on above: Performed By: #### L 501.5200 #### [facility] [address] [place], [address] GAP 13 Normal 5-15 [facility] Comment on above: Performed By: #### L 501.5200 #### [facility] [address] [place], [address] GFR/1.73 sq M.predicted among non-blacks MDRD (S/P/Bld) [Vol rate/Area] 102 mL/min/{1.73_m2} Normal >60 [facility] Comment on above: Result Comment: mL/m in/1.73m2 CKD-EPI Creatinine Equation (2020) Performed By: #### L 501.5200 #### [facility] [address] [place], [address] Globulin (S) [Mass/Vol] 3.2 g/dL Normal 2.2-4.2 [facility] Comment on above: Performed By: #### L 501.5200 #### [facility] [address] [place], [address] Glucose [Mass/Vol] 147 mg/dL High 70-99 [facility] Comment on above: Performed By: #### L 501.5200 #### [facility] [address] [place], [address] Potassium [Moles/Vol] 4.2 mmol/L Normal 3.3-5.1 [facility] Comment on above: Performed By: #### L 501.5200 #### [facility] [address] [place], [address] Sodium [Moles/Vol] 139 mmol/L Normal 133-145 [facility] Comment on above: Performed By: #### L 501.5200 #### [facility] [address] [place], [address] T PROT 7.7 g/dL Normal 5.9-8.4 [facility] Comment on above: Performed By: #### L 501.5200 #### [facility] [address] [place], [address] Urea nitrogen [Mass/Vol] 10 mg/dL Normal 4-19 [facility] Comment on above: Performed By: #### L 501.5200 #### [facility] [address] [place], [address] Ferritinon 08-01-2024 Ferritin [Mass/Vol] 27 ng/mL Normal 22-378 [facility] Comment on above: Performed By: #### L 501.5200 #### [facility] [address] [place], [address] Iron+Iron Binding Capacityon 08-01-2024 Iron [Mass/Vol] 181 ug/dL High 50-170 [facility] Comment on above: Performed By: #### L 501.5200 #### [facility] [address] [place], [address] IRON SATURATION 46.0 Normal 13-59 [facility] Comment on above: Performed By: #### L 501.5200 #### [facility] [address] [place], [address] TIBC 394 ug/dL Normal 250-450 [facility] Comment on above: Performed By: #### L 501.5200 #### [facility] [address] [place], [address] UIBC 213 ug/dL Low 228-428 [facility] Comment on above: Performed By: #### L 501.5200 #### [facility] [address] [place], [address] T4 Free Directon 08-01-2024 T4 FREE DIRECT 1.30 ng/dL Normal 0.76-1.46 [facility] Comment on above: Performed By: #### L 501.5200 #### [facility] [address] [place], [address] Thyroid Stim Hormone (TSH)on 08-01-2024 TSH 0.846 uIU/mL Normal 0.300-4.200 [facility] Comment on above: Performed By: #### L 501.5200 #### [facility] [address] [place], [address] Vitamin B12on 08-01-2024 Cobalamin (Vitamin B12) [Mass/Vol] 313 pg/mL Normal 180-914 [facility] Comment on above: Performed By: #### L 501.5200 #### [facility] [address] [place], [address] Internal Medicine Office Vis iton 07-27-2024 Internal Medicine Office Visit [facility] [address] [place] [address] [place] [address] OFFICE VISIT Date of Service: 07/27/24 MR#: [id number] Acct: [id number] Name: MIGUEL MELVIN Rep #: [id number] : 1975 Provider: Dr. Princess jesus MD Age/Sex: 49/F Location: [facility] [place] [facility] Status: Signed Intake Vital [...] Chief Complaint: Follow-up chronic conditions. Rash, itching Entry Level Programmer Required: No Is patient in pain?: No [...] 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 URI (upper [...] abuse Surgical History Stented coronary artery (11/12/23) [place] teeth removed History of History of tubal [...] She sta (more content not included)... Normal [facility] CNOVon 05-09-2024 [facility] Office Visit (UCWSTR ) MIGUEL MELVIN ([id number]) 1975 F Date Time Provider Department 05/09/24 2:00 PM JOSE MANUEL OGDEN [facility] During your visit today, we recorded the following information about you: Temperature Pulse Respiration Blood pressure 97 degrees 60/minute 16/minute 136/82 Weight 113.1 kg Jose Manuel Ogden PA-C 05/09/2024 2:07 PM Signed This note was created using globa.lyriter. Subjective Miguel Melvin is a 48 year [...] by m (more content not included)... Normal [facility] Ferritinon 04-27-2024 Ferritin [Mass/Vol] 7 ng/mL Low 8-252 [facility] Comment on above: Performed By: #### L 100.0100 #### [facility] [address] [place], [place], [id number] Ironon 04-27-2024 Iron [Mass/Vol] 17 ug/dL Low 50-170 [facility] Comment on above: Performed By: #### L 100.0100 #### [facility] [address] [place], [address] Iron Binding Capacity,Totalo n 04-27-2024 TIBC 484 ug/dL High 250-450 [facility] Comment on above: Performed By: #### L 100.0100 #### [facility] [address] [place], [address] Bilirubin, Directon 04-25-19 25 Bilirubin.direct [Mass/Vol] 0.14 mg/dL Normal 0.00-0.30 [facility] Comment on above: Order Comment: CBCD- DUPLICATE ORDER W/ OLEGHE Performed By: #### L 501.5200 #### [facility] [address] [place], [address] CBC W/Diff, Automatedon 02-0 3-2024 Absolute Lymph 1.87 X10 3/uL Normal 0.83-4.51 [facility] Comment on above: Order Comment: CBCD- DUPLICATE ORDER W/ OLEGHE Performed By: #### L 501.5200 #### [facility] [address] [place], [address] Absolute Neut 4.1 X10 3/uL Normal 2.0-7.7 [facility] Comment on above: Order Comment: CBCD- DUPLICATE ORDER W/ OLEGHE Performed By: #### L 501.5200 #### [facility] [address] [place], [address] Basophils/100 WBC (Bld) 0.6 % Normal 0-1 [facility] Comment on above: Order Comment: CBCD- DUPLICATE ORDER W/ OLEGHE Performed By: #### L 501.5200 #### [facility] [address] [place], [address] Eosinophils/100 WBC (Bld) 2.4 % Normal 0-5 [facility] Comment on above: Order Comment: CBCD- DUPLICATE ORDER W/ OLEGHE Performed By: #### L 501.5200 #### [facility] [address] [place], [address] Erythrocyte distribution width (RBC) [Ratio] 15.7 % High 11.6-14.6 [facility] Comment on above: Order Comment: CBCD- DUPLICATE ORDER W/ OLEGHE Performed By: #### L 501.5200 #### [facility] [address] [place], [address] Hematocrit (Bld) [Volume fraction] 36.0 % Low 37-47 [facility] Comment on above: Order Comment: CBCD- DUPLICATE ORDER W/ OLEGHE Performed By: #### L 501.5200 #### [facility] [address] [place], [address] Hemoglobin (Bld) [Mass/Vol] 10.6 g/dL Low 12.0-15.0 [facility] Comment on above: Order Comment: CBCD- DUPLICATE ORDER W/ OLEGHE Performed By: #### L 501.5200 #### [facility] [address] [place], [address] IG% 0.500 Normal 0.0-0.9 [facility] Comment on above: Order Comment: CBCD- DUPLICATE ORDER W/ OLEGHE Result Comment: IG% - Immature Granulocytes (promyelocytes, myelocytes and metamyelocytes) > 1% indicates that a LEFT SHIFT is Present. Performed By: #### L 501.5200 #### [facility] [address] [place], [address] Lymphocytes/100 WBC (Bld) 28.1 % Normal 19-41 [facility] Comment on above: Order Comment: CBCD- DUPLICATE ORDER W/ OLEGHE Performed By: #### L 501.5200 #### [facility] [address] [place], [address] MCH (RBC) [Entitic mass] 22.6 pg Low 27.0-32.0 [facility] Comment on above: Order Comment: CBCD- DUPLICATE ORDER W/ OLEGHE Performed By: #### L 501.5200 #### [facility] [address] [place], [address] MCHC (RBC) [Mass/Vol] 29.4 g/dL Low 32-36 [facility] Comment on above: Order Comment: CBCD- DUPLICATE ORDER W/ OLEGHE Performed By: #### L 501.5200 #### [facility] [address] [place], [address] MCV (RBC) [Entitic vol] 76.6 fL Low 81-99 [facility] Comment on above: Order Comment: CBCD- DUPLICATE ORDER W/ OLEGHE Performed By: #### L 501.5200 #### [facility] [address] [place], [address] Monocytes/100 WBC (Bld) 6.9 % Normal 0-10 [facility] Comment on above: Order Comment: CBCD- DUPLICATE ORDER W/ OLEGHE Performed By: #### L 501.0 #### [facility] [address] [place], [address] Neutrophils/100 WBC (Bld) 61.5 % Normal 47-70 [facility] Comment on above: Order Comment: CBCD- DUPLICATE ORDER W/ OLEGHE Performed By: #### L 501.0 #### [facility] [address] [place], [address] Nucleated RBC (Bld) [#/Vol] 0 10*3/uL Normal 0-5 [facility] Comment on above: Order Comment: CBCD- DUPLICATE ORDER W/ OLEGHE Performed By: #### L 501.5200 #### [facility] [address] [place], [address] Platelet mean volume (Bld) [Entitic vol] 10.8 fL Normal 6.2-12.0 [facility] Comment on above: Order Comment: CBCD- DUPLICATE ORDER W/ OLEGHE Performed By: #### L 501.5200 #### [facility] [address] [place], [address] Platelets (Bld) [#/Vol] 334 10*3/uL Normal 150-450 [facility] Comment on above: Order Comment: CBCD- DUPLICATE ORDER W/ OLEGHE Performed By: #### L 070.5200 #### [facility] [address] [place], [address] RBC (Bld) [#/Vol] 4.70 10*6/uL Normal 4.2-5.4 [facility] Comment on above: Order Comment: CBCD- DUPLICATE ORDER W/ OLEGHE Performed By: #### L 501.5200 #### [facility] [address] [place], [address] RDW SD 43.1 fl Normal 35.1-43.9 [facility] Comment on above: Order Comment: CBCD- DUPLICATE ORDER W/ OLEGHE Performed By: #### L 513.5200 #### [facility] [address] [place], [address] WBC (Bld) [#/Vol] 6.7 10*3/uL Normal 4.4-11.0 [facility] Comment on above: Order Comment: CBCD- DUPLICATE ORDER W/ OLEGHE Performed By: #### L 501.5200 #### [facility] [address] [place], [address] Comprehensive Metabolic Prof ilon 04-25-2024 Albumin [Mass/Vol] 3.7 g/dL Normal 3.2-5.0 [facility] Comment on above: Order Comment: CBCD- DUPLICATE ORDER W/ OLEGHE Performed By: #### L 501.5200 #### [facility] [address] [place], [address] Albumin/Globulin [Mass ratio] 0.9 {ratio} Normal 0.9-2.4 [facility] Comment on above: Order Comment: CBCD- DUPLICATE ORDER W/ OLEGHE Performed By: #### L 501.5200 #### [facility] [address] [place], [address] ALK P 118 U/L High 45-117 [facility] Comment on above: Order Comment: CBCD- DUPLICATE ORDER W/ OLEGHE Performed By: #### L 501.5200 #### [facility] [address] [place], [address] ALT [Catalytic activity/Vol] 31 U/L Normal 13-56 [facility] Comment on above: Order Comment: CBCD- DUPLICATE ORDER W/ OLEGHE Performed By: #### L 501.5200 #### [facility] [address] [place], [address] AST [Catalytic activity/Vol] 17 U/L Normal 15-37 [facility] Comment on above: Order Comment: CBCD- DUPLICATE ORDER W/ OLEGHE Performed By: #### L .0 #### [facility] [address] [place], [address] Bilirubin [Mass/Vol] 0.40 mg/dL Normal 0.20-1.00 [facility] Comment on above: Order Comment: CBCD- DUPLICATE ORDER W/ OLEGHE Result Comment: For patients on eltrombopag therapy, use of Dimension [place] TBIL is not recommended. Performed By: #### L .0 #### [facility] [address] [place], [address] BUN/CRE 10.2 RATIO Normal 10-20 [facility] Comment on above: Order Comment: CBCD- DUPLICATE ORDER W/ OLEGHE Performed By: #### L 501.5200 #### [facility] [address] [place], [address] CA,Total 8.9 mg/dL Normal 8.5-10.1 [facility] Comment on above: Order Comment: CBCD- DUPLICATE ORDER W/ OLEGHE Performed By: #### L .5200 #### [facility] [address] [place], [address] Chloride [Moles/Vol] 106 mmol/L Normal 98-107 [facility] Comment on above: Order Comment: CBCD- DUPLICATE ORDER W/ OLEGHE Performed By: #### L 501.5200 #### [facility] [address] [place], [address] CO2 [Moles/Vol] 23.0 mmol/L Normal 21.0-32.0 [facility] Comment on above: Order Comment: CBCD- DUPLICATE ORDER W/ OLEGHE Performed By: #### L 501.5200 #### [facility] [address] [place], [address] Creatinine [Mass/Vol] 0.98 mg/dL Normal 0.55-1.02 [facility] Comment on above: Order Comment: CBCD- DUPLICATE ORDER W/ OLEGHE Result Comment: The validity of the calculated GFR GFRAA in patients over 70 years has not been determined. Clinical correlation is essential. Performed By: #### L 501.5200 #### [facility] [address] [place], [address] EST GFR - AA 78 mL/min Normal >60 [facility] Comment on above: Order Comment: CBCD- DUPLICATE ORDER W/ OLEGHE Result Comment: Afri can [place] GFR Calc Performed By: #### L 501.5200 #### [facility] [address] [place], [address] GAP 8 Normal 5-15 [facility] Comment on above: Order Comment: CBCD- DUPLICATE ORDER W/ OLEGHE Performed By: #### L 501.5200 #### [facility] [address] [place], [address] GFR/1.73 sq M.predicted among non-blacks MDRD (S/P/Bld) [Vol rate/Area] 65 mL/min/{1.73_m2} Normal >60 [facility] Comment on above: Order Comment: CBCD- DUPLICATE ORDER W/ OLEGHE Result Comment: Non- GFR Calc Performed By: #### L 501.5200 #### [facility] [address] [place], [address] Globulin (S) [Mass/Vol] 4.1 g/dL Normal 2.2-4.2 [facility] Comment on above: Order Comment: CBCD- DUPLICATE ORDER W/ OLEGHE Performed By: #### L 501.5200 #### [facility] [address] [place], [address] Glucose [Mass/Vol] 103 mg/dL Normal 74-106 [facility] Comment on above: Order Comment: CBCD- DUPLICATE ORDER W/ OLEGHE Result Comment: Fast ing Glucose result from 100 to 125 mg/dL suggests IMPAIRED HOMEOSTASIS per A.D.A. criteria. Performed By: #### L 501.0 #### [facility] [address] [place], [address] Potassium [Moles/Vol] 3.7 mmol/L Normal 3.5-5.1 [facility] Comment on above: Order Comment: CBCD- DUPLICATE ORDER W/ OLEGHE Performed By: #### L 501.5200 #### [facility] [address] [place], [address] Sodium [Moles/Vol] 137 mmol/L Normal 136-145 [facility] Comment on above: Order Comment: CBCD- DUPLICATE ORDER W/ OLEGHE Performed By: #### L 501.5200 #### [facility] [address] [place], [address] T PROT 7.8 g/dL Normal 6.4-8.2 [facility] Comment on above: Order Comment: CBCD- DUPLICATE ORDER W/ OLEGHE Performed By: #### L 501.5200 #### [facility] [address] [place], [address] Urea nitrogen [Mass/Vol] 10 mg/dL Normal 7-18 [facility] Comment on above: Order Comment: CBCD- DUPLICATE ORDER W/ OLEGHE Performed By: #### L 501.5200 #### [facility] [address] [place], [address] Lipid Profileon 04-25-2024 Cholesterol [Mass/Vol] 146 mg/dL Normal 200 [facility] Comment on above: Order Comment: CBCD- DUPLICATE ORDER W/ OLEGHE Result Comment: <200 mg/dL Desirable 200-240 mg/dL Borderline >240 mg/dL High Risk Performed By: #### L 501.5200 #### [facility] [address] [place], [address] Cholesterol in HDL [Mass/Vol] 71 mg/dL Normal [facility] Comment on above: Order Comment: CBCD- DUPLICATE ORDER W/ OLEGHE Result Comment: The drugs N-Acetylcysteine and Metamizole may falsely depress this assay. Reference Range HDL <40 mg/dL Low HDL Cholesterol HDL >or= 60 mg/dL High HDL Cholesterol Performed By: #### L 501.5200 #### [facility] [address] [place], [address] Cholesterol in LDL [Mass/Vol] 61 mg/dL Normal 0-130 [facility] Comment on above: Order Comment: CBCD- DUPLICATE ORDER W/ OLEGHE Performed By: #### L 501.5200 #### [facility] [address] [place], [address] Cholesterol in VLDL [Mass/Vol] 14 mg/dL Normal 5-40 [facility] Comment on above: Order Comment: CBCD- DUPLICATE ORDER W/ OLEGHE Performed By: #### L 501.5200 #### [facility] [address] [place], [address] Triglyceride [Mass/Vol] 71 mg/dL Normal [facility] Comment on above: Order Comment: CBCD- DUPLICATE ORDER W/ OLEGHE Result Comment: The drugs N-Acetylcysteine and Metamizole may falsely depress this assay. Serum Triglycerides Reference Interval Normal <150 mg/dL Borderline high 150 - 199 mg/dL High 200 - 499 mg/dL Very High > or = 500 mg/dL Performed By: #### L 501.5200 #### [facility] [address] [place], [address] Liver Profileon 04-25-2024 ALB Normal 3.2-5.0 [facility] Comment on above: Result Comment: ADDE D TO DR. BACA Performed By: #### L 100.0500, BTSPAT, L500.4050 #### [facility] [address] [place], [address] ALK P Normal 45-117 [facility] Comment on above: Result Comment: ADDRosa D TO DR. BACA Performed By: #### L 100.0500, BTSPAT, L500.4050 #### [facility] [address] [place], [address] ALT Normal 13-56 [facility] Comment on above: Result Comment: ADDRosa D TO DR. BACA Performed By: #### L 100.0500, BTSPAT, L500.4050 #### [facility] [address] [place], [address] AST Normal 15-37 [facility] Comment on above: Result Comment: ADDRosa D TO DR. BACA Performed By: #### L 100.0500, BTSPAT, L500.4050 #### [facility] [address] [place], [address] D BILI Normal 0.00-0.30 [facility] Comment on above: Result Comment: ADDRosa D TO DR. BACA Performed By: #### L 100.0500, BTSPAT, L500.4050 #### [facility] [address] [place], [address] T BILI Normal 0.20-1.00 [facility] Comment on above: Result Comment: ADDRosa D TO DR. BACA Performed By: #### L 100.0500, BTSPAT, L500.4050 #### [facility] [address] [place], [address] T PROT Normal 6.4-8.2 [facility] Comment on above: Result Comment: ADDE D TO DR. BACA Performed By: #### L 100.0500, BTSPAT, L500.4050 #### [facility] [address] [place], [address] Office Visit Reporton 2024 Office Visit Report [facility] [address] [place] [address] OFFICE VISIT Date of Service: 04/25/24 MR#: [id number] Acct: [id number] Patient: MIGUEL MELVIN Rep #: [id number] : 1975 Provider: RICARDO NURSE Age/Sex: 48/F Location: [facility] Status: Signed Intake Vital Signs 04/20/24 17:54 [...] (Verified 04/20/24 17:44) Rash 04/25/24 1757 Date Princess Valentine Signature: Date (if applicable) CC: Normal [facility] Internal Medicine Office Vis iton 04-20-2024 Internal Medicine Office Visit [facility] [address] [place], [place] [address] OFFICE VISIT Date of Service: 04/20/24 MR#: [id number] Acct: [id number] Name: MIGUEL MELVIN Rep #: [id number] : 1975 Provider: Dr. Princess jesus MD Age/Sex: 48/F Location: [facility] Status: Signed Intake Vital [...] MED FU Chief Complaint: Follow-up chronic conditions Entry Level Programmer Required: No Accompanied by: Self Is patient [...] 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 URI (upper [...] abuse Surgical History Stented coronary artery (11/12/23) [place] teeth removed History of History of tubal [...] 5.9. S (more content not included)... [facility] Office Visit (UCWSTR ) MIGUEL MELVIN ([id number]) 1975 F Date Time Provider Department 04/11/24 10:15 AM [facility] During your visit today, we recorded the following information about you: Temperature Pulse Respiration Blood pressure 97.6 degrees 68/minute 16/minute 118/72 Weight 110.8 kg Sheyla Alfonso APRN.CINDER WORKER 04/11/2024 10:36 AM Signed Subjective Eye Problem [...] Tympanic mem (more content not included)... Normal [facility] MR/BMS.BPon 04-05-2024 MR/BMS.BP [address], [address] [place] [address] OFFICE VISIT Date of Service: 04/05/24 MR#: [id number] Acct: [id number] Name: MIGUEL MELVIN Rep #: [id number] : 1975 Provider: ROSHAN herzog Age/Sex: 48/F Location: [facility] Status: Signed Intake Vital Signs 01/26/24 15:31 03/17/24 14:48 04/05/24 15:24 Height 5 ft 6 in 5 ft 6 in 5 ft 6 in BP Intake Visit Reasons: 10wfu Allergies cinnamon Allergy (Verified 01/26/24 15:33) Rash PFSH Medical History Heart attack UTI (urinary tract infection) Cough Borderline type 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 URI (upper [...] abuse Surgical History Stented coronary artery (11/12/23) [place] teeth removed History of History of tubal [...] History provided by: patient HPI: Rosa Melvin ( Nikki) is a 48 year old female patient [...] CNOV Office Visit (UCWSTR ) MIGUEL MELVIN ([id number]) 1975 F Date Time Provider Department 11/07/23 12:45 PM JAYDA PEÑALOZA [facility] During your visit today, we recorded the following information about you: Temperature Pulse Respiration Blood pressure 97.8 degrees 69/minute 18/minute 132/61 Weight 115.2 kg Jayda Peñaloza 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 Normal [facility] CNOVon 11-02-2023 CNOV Office Visit (UCWSTR ) MIGUEL MELVIN ([id number]) 1975 F Date Time Provider Department 11/02/23 1:15 PM SHEYLA ALFONSO [facility] During your visit today, we recorded the following information about you: Temperature Pulse Respiration Blood pressure 97.3 degrees 97/minute 18/minute 118/74 Weight 113.8 kg Sheyla Alfonso APRN.[facility] 11/02/2023 1:27 PM Addendum ASSESSMENT/PLAN: 1. Viral [...] Discussed expected course of illness Sheyla Alfonso APRN.CINDER WORKER ACUTE BRONCHITIS: You have acute bronchitis. This [...] 3 days of proper treatment. Sheyla Alfonso APRN.CINDER WORKER 11/02/2023 1:31 PM Signed Subjective Cough Associated [...] HFA (PROVEN (more content not included)... Normal [facility] XR Chest PA and Lateralon IMPRESSION: Stable exam with no acute radiographic abnormality. Social Group Worker: ELIZABETH Transcribe Date/Time: Oct 27 2023 1:10P Dictated by : NIDIA NARANJO MD This examination was interpreted and the report reviewed and electronically signed by: NIDIA NARANJO MD on Oct 27 2023 1:10PM [facility] DIVISION OF RADIOLOGY * [...] soft tissues: Unremarkable. DIVISION OF RADIOLOGY Provider, [facility]27/[facility]23 * * *Final Report* * [...] Stable exam with no acute radiographic abnormality. Social Group Worker: ELIZABETH Transcribe Date/Time: Oct 27 2023 1:10P Dictated by : NIDIA NARANJO MD This examination was interpreted and the report reviewed and electronically signed by: NIDIA NARANJO MD on Oct 27 2023 1:10PM EST [facility] Radiology Study observation (narrative) [facility] Chest PA and LateralOrder ed By: Ccf Provider on 10-27-2023 [facility] Absolute lymphocyte countOrd ered By: Princess Baca on 01-21-2023 Lymphocytes Auto (Unsp spec) [#/Vol] 2.08 10*3/uL 0.83-4.51 [facility] Basophil percentageOrdered B y: Princess Baca on 01-21-2023 Basophils/100 WBC (Bld) 0.8 % 0-1 [facility] Chloride [Moles/Vol] 104 mmol/L 98-107 [facility] Eosinophils/100 WBC (Bld) 3.1 % 0-5 [facility] Glucose [Mass/Vol] 107 mg/dL 74-106 [facility] Comment on above: Fasting Glucose resu lt from 100 to 125 mg/dL suggests IMPAIRED HOMEOSTASIS per A.D.A. criteria. Neutrophils (Bld) [#/Vol] 4.3 10*3/uL 2.0-7.7 [facility] Neutrophils/100 WBC (Bld) 59.8 % 47-70 [facility] Potassium [Moles/Vol] 3.5 mmol/L 3.5-5.1 [facility] Sodium [Moles/Vol] 136 mmol/L 136-145 [facility] WBC (Bld) [#/Vol] 7.1 10*3/uL 4.4-11.0 [facility] Blood erythrocytes count (nu mber/volume)Ordered By: Princess Baca on 01-21-2023 RBC (Bld) [#/Vol] 5.41 10*6/uL 4.2-5.4 [facility] Blood hemoglobin measurement (mass/volume)Ordered By: Princess Baca on 01-21-2023 Hemoglobin (Bld) [Mass/Vol] 14.5 g/dL 12.0-15.0 [facility] Blood lymphocytes/100 leukoc ytesOrdered By: Princess Baca on 01-21-2023 Lymphocytes/100 WBC (Bld) 29.1 % 19-41 [facility] Blood monocytes/100 leukocyt esOrdered By: Princess Baca on 01-21-2023 Monocytes/100 WBC (Bld) 6.9 % 0-10 [facility] Blood platelet mean volumeOr dered By: Princess Baca on 01-21-2023 Platelet mean volume (Bld) [Entitic vol] 11.5 fL 6.2-12.0 [facility] Determination of erythrocyte mean corpuscular volume (MCV)Ordered By: monika Baca on 01-21-2023 MCV (RBC) [Entitic vol] 83.5 fL 81-99 [facility] Hematocrit Auto (Bld) [Volum e fraction]Ordered By: Princess Baca on 01-21-2023 Hematocrit (Bld) [Volume fraction] 45.2 % 37-47 [facility] - Chemistry and C hemistry - challengeOrdered By: narensolanokyleigh Baca on 01-21-2023 CO2 [Moles/Vol] 25.0 mmol/L 21.0-32.0 [facility] Urea nitrogen/Creatinine [Mass ratio] 8.5 mg/mg 10-20 [facility] - Hematology and Cell countsOrdered By: narensolanokyleigh Baca on 01-21-2023 Erythrocyte distribution width (RBC) [...] 01-21-2023 MCHC (RBC) [Mass/Vol] 32.1 g/dL 32-36 [facility] No Panel InformationOrdered By: Princess Baca on [...] on 01-21-2023 Calcium [Mass/Vol] 9.0 mg/dL 8.5-10.1 [facility] Serum or plasma creatinine m easurement (mass/volume)Ordered By: Princess Baca on 01-21-2023 Creatinine [Mass/Vol] 0.95 mg/dL 0.55-1.02 [facility] Comment on above: The validity of the [...] 06-02-2022 Basophils/100 WBC (Bld) 0.5 % 0-1 [facility] Bilirubin [Mass/Vol] 0.50 mg/dL 0.20-1.00 [facility] Comment on above: For patients on eltr ombopag therapy, use of Dimension [place] TBIL is not recommended. Chloride [Moles/Vol] 104 mmol/L 98-107 [facility] Cholesterol [Mass/Vol] 182 mg/dL <200 [facility] Comment on above: <200 mg/dL Desirable 200-240 mg/dL Borderline >240 mg/dL High Risk Eosinophils/100 WBC (Bld) 1.9 % 0-5 [facility] Glucose [Mass/Vol] 104 mg/dL 74-106 [facility] Comment on above: Fasting Glucose resu lt from 100 to 125 mg/dL suggests IMPAIRED HOMEOSTASIS per A.D.A. criteria. Neutrophils (Bld) [#/Vol] 3.7 10*3/uL 2.0-7.7 [facility] Neutrophils/100 WBC (Bld) 59.1 % 47-70 [facility] Potassium [Moles/Vol] 3.9 mmol/L 3.5-5.1 [facility] Protein [Mass/Vol] 7.3 g/dL 6.4-8.2 [facility] Sodium [Moles/Vol] 135 mmol/L 136-145 [facility] Triglyceride [Mass/Vol] 70 mg/dL <199 [facility] Comment on above: The drugs N-Acetylcy steine and Metamizole may falsely depress this assay.Serum Triglycerides Reference Interval Normal <150 mg/dL Borderline high 150 - 199 mg/dL High 200 - 499 mg/dL Very High > or = 500 mg/dL WBC (Bld) [#/Vol] 6.3 10*3/uL 4.4-11.0 [facility] Blood erythrocytes count (nu mber/volume)Ordered By: Dr. Baca on 06-02-2022 RBC (Bld) [#/Vol] 5.29 10*6/uL 4.2-5.4 [facility] Blood hemoglobin measurement (mass/volume)Ordered By: Dr. Baca on 06-02-2022 Hemoglobin (Bld) [Mass/Vol] 15.1 g/dL 12.0-15.0 [facility] Blood lymphocytes/100 leukoc ytesOrdered By: Dr. Baca on 06-02-2022 Lymphocytes/100 WBC (Bld) 30.4 % 19-41 [facility] Blood monocytes/100 leukocyt esOrdered By: Dr. Baca on 06-02-2022 Monocytes/100 WBC (Bld) 6.8 % 0-10 [facility] Blood platelet mean volumeOr dered By: Dr. Baca on 06-02-2022 Platelet mean volume (Bld) [Entitic vol] 10.9 fL 6.2-12.0 [facility] Determination of erythrocyte mean corpuscular volume (MCV)Ordered By: Dr. Baca on 06-02-2022 MCV (RBC) [Entitic vol] 86.6 fL 81-99 [facility] Hematocrit Auto (Bld) [Volum e fraction]Ordered By: [...] General Free T4 [Mass/Vol] 1.09 ng/dL 0.76-1.46 [facility] Globulin (S) [Mass/Vol] 3.6 g/dL 2.2-4.2 [facility] Urea nitrogen/Creatinine [Mass ratio] 8.1 mg/mg 10-20 [...] 06-02-2022 MCHC (RBC) [Mass/Vol] 33.0 g/dL 32-36 [facility] No Panel InformationOrdered By: Dr. Baca on [...] on 06-02-2022 Albumin [Mass/Vol] 3.7 g/dL 3.2-5.0 [facility] Serum or plasma albumin/glob ulin mass ratioOrdered By: Dr. Baca on 06-02-2022 Albumin/Globulin [Mass ratio] 1.0 {ratio} 0.9-2.4 [facility] Serum or plasma calcium jil urement (mass/volume)Ordered By: Dr. Baca on 06-02-2022 Calcium [Mass/Vol] 8.8 mg/dL 8.5-10.1 [facility] Serum or plasma cholesterol in HDL measurement [...] on 06-02-2022 Creatinine [Mass/Vol] 0.99 mg/dL 0.55-1.02 [facility] Comment on above: The validity of the [...] Body mass index (BMI) [Ratio] 39.48 kg/m2 [employer] Work Phone: [facility] 05-09-2024 13:42-0500 Body temperature 97 [degF] [employer] PA-C Work Phone: [facility] 05-09-2024 13:42-0500 Body weight 113.1 kg [employer] PA-C Work Phone: [facility] 05-09-2024 13:42-0500 Diastolic blood pressure 82 mm[Hg] [employer] PA-C Work Phone: [facility] 05-09-2024 13:42-0500 Heart rate 60 /min [employer] PA-C Work Phone: [facility] 05-09-2024 13:42-0500 Respiratory rate 16 /min Jose Manuel Ogden PA-C Work Phone: [facility] 05-09-2024 13:42-0500 SaO2% (BldA) [Mass fraction] 98 % Jose Manuel Durantutter PA-C Work Phone: [facility] 05-09-2024 13:42-0500 Systolic blood pressure 136 mm[Hg] Jose Manuel Ogden PA-C Work Phone: [facility] 04-11-2024 10:22-0500 Body mass index (BMI) [Ratio] 38.68 kg/m2 Sheyla Praisler-Wood SUPERVISOR MOLDING.CINDER WORKER Work Phone: [facility] 04-11-2024 10:22-0500 Body temperature 97.59 [degF] Sheyla Praisler-Wood SUPERVISOR MOLDING.CINDER WORKER Work Phone: [facility] 04-11-2024 10:22-0500 Body weight 110.8 kg Sheyla Praisler-Wood SUPERVISOR MOLDING.CINDER WORKER Work Phone: [facility] 04-11-2024 10:22-0500 Diastolic blood pressure 72 mm[Hg] Sheyla Praisler-Wood SUPERVISOR MOLDING.CINDER WORKER Work Phone: [facility] 04-11-2024 10:22-0500 Heart rate 68 /min Sheyla Praisler-Wood SUPERVISOR MOLDING.CINDER WORKER Work Phone: [facility] 04-11-2024 10:22-0500 Respiratory rate 16 /min Sheyla Praisler-Wood SUPERVISOR MOLDING.CINDER WORKER Work Phone: [facility] 04-11-2024 10:22-0500 SaO2% (BldA) [Mass fraction] 96 % Sheyla Praisler-Wood SUPERVISOR MOLDING.CINDER WORKER Work Phone: [facility] 04-11-2024 10:22-0500 Systolic blood pressure 118 mm[Hg] Sheyla Praisler-Wood SUPERVISOR MOLDING.CINDER WORKER Work Phone: [facility] 11-07-2023 12:57-0400 Body mass index (BMI) [Ratio] 40.22 kg/m2 Jayda Peñaloza APRN.CINDER WORKER Work Phone: [facility] 11-07-2023 12:57-0400 Body temperature 97.81 [degF] Jayda Peñaloza APRN.CINDER WORKER Work Phone: [facility] 11-07-2023 12:57-0400 Body weight 115.2 kg Jayda Peñaloza APRN.CINDER WORKER Work Phone: [facility] 11-07-2023 12:57-0400 Diastolic blood pressure 61 mm[Hg] Jayda Peñaloza APRN.CINDER WORKER Work Phone: [facility] 11-07-2023 12:57-0400 Heart rate 69 /min Jayda Peñaloza APRN.CINDER WORKER Work Phone: [facility] [facility] 11-07-2023 12:57-0400 Respiratory rate 18 /min Jayda Peñaloza APRN.CINDER WORKER Work Phone: [facility] 11-07-2023 12:57-0400 SaO2% (BldA) [Mass fraction] 98 % Jayda Peñaloza APRN.CINDER WORKER Work Phone: [facility] 11-07-2023 12:57-0400 Systolic blood pressure 132 mm[Hg] Jayda Peñaloza APRN.CINDER WORKER Work Phone: [facility] 11-02-2023 13:06-0400 Body mass index (BMI) [Ratio] 39.73 kg/m2 Sheyla Alfonso APRN.CINDER WORKER Work Phone: [facility] 11-02-2023 13:06-0400 Body temperature 97.3 [degF] Sheyla Alfonso APRN.CINDER WORKER Work Phone: [facility] 11-02-2023 13:06-0400 Body weight 113.8 kg Sheyla Alfonso APRN.CINDER WORKER Work Phone: [facility] 11-02-2023 13:06-0400 Diastolic blood pressure 74 mm[Hg] Sheyla Alfonso APRN.CINDER WORKER Work Phone: [facility] 11-02-2023 13:06-0400 Heart rate 97 /min Sheylaannie Chiuler-Edy SUPERVISOR MOLDING.CINDER WORKER Work Phone: [facility] 11-02-2023 13:06-0400 Respiratory rate 18 /min Sheylaannie Chiuler-Edy SUPERVISOR MOLDING.CINDER WORKER Work Phone: [facility] 11-02-2023 13:06-0400 SaO2% (BldA) [Mass fraction] 98 % Sheyla Chiuler-Wood SUPERVISOR MOLDING.CINDER WORKER Work Phone: [facility] 11-02-2023 13:06-0400 Systolic blood pressure 118 mm[Hg] Sheyla Chiuler-Edy SUPERVISOR MOLDING.CINDER WORKER Work Phone: [facility] 10-29-2023 10:28-0400 Body mass index (BMI) [Ratio] 39.45 kg/m2 Humberto Miller SUPERVISOR MOLDING.CINDER WORKER Work Phone: [facility] 10-29-2023 10:28-0400 Body temperature 100.51 [degF] Humberto Miller SUPERVISOR MOLDING.CINDER WORKER Work Phone: [facility] 10-29-2023 10:28-0400 Body weight 113 kg Humberto Miller SUPERVISOR MOLDING.CINDER WORKER Work Phone: [facility] 10-29-2023 10:28-0400 Diastolic blood pressure 80 mm[Hg] Humberto Miller SUPERVISOR MOLDING.CINDER WORKER Work Phone: [facility] 10-29-2023 10:28-0400 Heart rate 85 /min Humberto Miller SUPERVISOR MOLDING.CINDER WORKER Work Phone: [facility] 10-29-2023 10:28-0400 Respiratory rate 20 /min Humberto Miller SUPERVISOR MOLDING.CINDER WORKER Work Phone: [facility] 10-29-2023 10:28-0400 SaO2% (BldA) [Mass fraction] 96 % Humberto Miller SUPERVISOR MOLDING.CINDER WORKER Work Phone: [facility] 10-29-2023 10:28-0400 Systolic blood pressure 112 mm[Hg] Humberto Miller SUPERVISOR MOLDING.CINDER WORKER Work Phone: [facility] 10-27-2023 12:37-0400 Body mass index (BMI) [Ratio] 40.18 kg/m2 Jaylan Rand SUPERVISOR MOLDING.CINDER WORKER Work Phone: [facility] 10-27-2023 12:37-0400 Body temperature 97.59 [degF] Jaylan Rand SUPERVISOR MOLDING.CINDER WORKER Work Phone: [facility] 10-27-2023 12:37-0400 Body weight 115.1 kg Jaylan Rand SUPERVISOR MOLDING.CINDER WORKER Work Phone: [facility] 10-27-2023 12:37-0400 Diastolic blood pressure 66 mm[Hg] Jaylan Rand SUPERVISOR MOLDING.CINDER WORKER Work Phone: [facility] 10-27-2023 12:37-0400 Heart rate 88 /min Jaylan Rand SUPERVISOR MOLDING.CINDER WORKER Work Phone: [facility] 10-27-2023 12:37-0400 Respiratory rate 16 /min Jaylan Rand SUPERVISOR MOLDING.CINDER WORKER Work Phone: [facility] 10-27-2023 12:37-0400 SaO2% (BldA) [Mass fraction] 98 % Jaylan Rand SUPERVISOR MOLDING.CINDER WORKER Work Phone: [facility] 10-27-2023 12:37-0400 Systolic blood pressure 112 mm[Hg] Jaylan aRnd SUPERVISOR MOLDING.CINDER WORKER Work Phone: [facility] 09-01-2023 12:31-0400 Body mass index (BMI) [Ratio] 40.49 kg/m2 Humberto Miller SUPERVISOR MOLDING.CINDER WORKER Work Phone: [facility] 09-01-2023 12:31-0400 Body temperature 97.3 [degF] Humberto Miller SUPERVISOR MOLDING.CINDER WORKER Work Phone: [facility] 09-01-2023 12:31-0400 Body weight 116 kg Humberto Miller SUPERVISOR MOLDING.CINDER WORKER Work Phone: [facility] 09-01-2023 12:31-0400 Diastolic blood pressure 72 mm[Hg] Humberto Davidangelitoyesika SUPERVISOR MOLDING.CINDER WORKER Work Phone: [facility] 09-01-2023 12:31-0400 Heart rate 84 /min Humberto Davidangelitoyesika SUPERVISOR MOLDING.CINDER WORKER Work Phone: [facility] 09-01-2023 12:31-0400 Respiratory rate 18 /min [facility] SUPERVISOR MOLDING.CINDER WORKER Work Phone: [facility] 09-01-2023 12:31-0400 SaO2% (BldA) [Mass fraction] 98 % Humberto Davidangelitoyesika SUPERVISOR MOLDING.CINDER WORKER Work Phone: [facility] 09-01-2023 12:31-0400 Systolic blood pressure 124 mm[Hg] Humbertozayda Miller SUPERVISOR MOLDING.CINDER WORKER Work Phone: [facility] 08-14-2023 10:41-0400 Body mass index (BMI) [Ratio] 40.39 kg/m2 Jaylan Rand SUPERVISOR MOLDING.CINDER WORKER Work Phone: [facility] 08-14-2023 10:41-0400 Body temperature 96.91 [degF] Jaylan Rand SUPERVISOR MOLDING.CINDER WORKER Work Phone: [facility] 08-14-2023 10:41-0400 Body weight 115.7 kg Jaylan Rand APRN.CINDER WORKER Work Phone: [facility] 08-14-2023 10:41-0400 Diastolic blood pressure 78 mm[Hg] Jaylan Rand SUPERVISOR MOLDING.CINDER WORKER Work Phone: [facility] 08-14-2023 10:41-0400 Heart rate 66 /min Jaylan Rand SUPERVISOR MOLDING.CINDER WORKER Work Phone: [facility] 08-14-2023 10:41-0400 Respiratory rate 16 /min Jaylan Rand SUPERVISOR MOLDING.CINDER WORKER Work Phone: [facility] 08-14-2023 10:41-0400 SaO2% (BldA) [Mass fraction] 97 % Jaylan Rand APRNNicoletteCINDER WORKER Work Phone: [facility] 08-14-2023 10:41-0400 Systolic blood pressure 138 mm[Hg] Jaylan Rand APRLeeCINDER WORKER Work Phone: [facility] 01-21-2023 13:18-0400 Body height 167.64 cm [...] Type Care Provider Facility Start: 01-31-2025 ambulatory Angelita Lucio Fa cility:[facility] Start: 01-30-2025 Encounter for other preprocedural examination Angelita Lucio [facility] Start: 01-27-2025 End: 01-27-2025 ambulatory Angelita Lucio Facility:[facility] Start: 01-12-2025 End: 01-12-2025 Emergency department patient visit Christoph Swartz Facility:[facility] Start: 12-30-2024 ambulatory Efmonika Baca Facili ty:[facility] Start: 12-28-2024 ambulatory Princess Baca Facili ty:[facility] Start: 12-23-2024 End: 12-23-2024 ambulatory Princess Baca Facility:[facility] Start: 12-21-2024 End: 12-21-2024 ambulatory Efewongbe Oleghe Facility:[facility] Start: 12-13-2024 End: 12-13-2024 ambulatory Efewongbe Oleghe Facility:[facility] Start: 12-12-2024 ambulatory Efewongbe Oleghe Facili ty:[facility] Start: 12-09-2024 End: 12-09-2024 ambulatory Efewongbe Oleghe Facility:[facility] Start: 11-28-2024 End: 11-28-2024 ambulatory Efewongbe Oleghe Facility:[facility] Start: 11-07-2024 End: 11-07-2024 ambulatory Efewongbe Oleghe Facility:[facility] Start: 11-04-2024 End: 11-04-2024 ambulatory Efewongbe Oleghe Facility:[facility] Start: 10-27-2024 End: 10-27-2024 ambulatory JAYDAMANUELA PEÑALOZA Facility:[facility] Start: 09-29-2024 ambulatory Efewongbe Oleghe Facili ty:[facility] Start: 09-15-2024 End: 09-15-2024 ambulatory Efewongbe Oleghe Facility:[facility] Start: 08-30-2024 End: 08-31-2024 ambulatory Efewongbe Oleghe Facility:[facility] Start: 08-25-2024 ambulatory [...] Efewongbe Oleghe Facili ty:[facility] Start: 07-05-2024 ambulatory Efewsolanobe Dionicioe Facili ty:[facility] Start: 06-20-2024 End: 06-20-[facility] Start: 06-13-2024 End: 06-13-2024 [facility] Start: 06-06-2024 End: 06-06-2024 ambulatory [facility] Facility:[facility] Start: 06-02-2024 [facility] Start: 05-30-2024 End: 05-30-2024 ambulatory [facility] Facility:[facility] Start: 05-26-2024 ambulatory [facility] Dionicioe Facili ty:[facility] Start: 05-23-2024 End: 05-23-2024 ambulatory [facility] Facility:[facility] Start: 05-09-2024 End: 05-09-2024 ambulatory [facility] Facility:[facility] Start: 05-09-2024 End: 05-09-2024 Office outpatient visit 25 minutes Jose Manuel Ogden PA-C Work Phone: [facility] Comment on above: Urticaria of unknown origin (Primary Dx) Start: 04-25-2024 End: 04-25-2024 ambulatory [facility] Facility:[facility] Start: 04-25-2024 End: 04-25-2024 ambulatory [facility] Facility:[facility] Start: 04-20-2024 Encounter for genera l adult medical examination without abnormal findings [facility] Start: 04-20-2024 End: 04-20-2024 ambulatory [facility] Start: 04-15-2024 ambulatory Efnarensolanobe Dionicioe Facili ty:[facility] Start: 04-11-2024 End: 04-11-2024 ambulatory [facility] Facility:[facility] Start: 04-11-2024 End: 04-11-2024 Patient encounter procedure Sheyla Alfonso APRN.CINDER WORKER Work Phone: [facility] Comment on above: Conjunctivitis of christy th eyes, unspecified conjunctivitis type (Primary Dx) Start: 04-05-2024 End: 04-05-2024 ambulatory [facility] Facility:[facility] Start: 04-02-2024 ambulatory [facility] Facili ty:[facility] Start: 02-22-2024 End: 03-22-2024 ambulatory [facility] Facility:[facility] Start: 02-12-2024 End: 02-20-2024 ambulatory [facility] Facility:[facility] Start: 11-07-2023 End: 11-07-2023 ambulatory [facility] Facility:[facility] Start: 11-07-2023 End: 11-07-2023 Patient encounter procedure Jayda Peñaloza APRN.CINDER WORKER Work Phone: [facility] Comment on above: Acute cough (Primary Dx); Respiratory infection Start: 11-02-2023 End: 11-02-2023 [facility] Facility:[facility] Start: 11-02-2023 End: 11-02-2023 Patient encounter procedure Sheyla Alfonso APRN.CINDER WORKER Work Phone: [facility] Comment on above: Viral bronchitis (Pr imary Dx); Otalgia of both ears Start: 10-29-2023 End: 10-29-2023 Office outpatient visit 25 minutes Humberto Miller APRN.CINDER WORKER Work Phone: [facility] Comment on above: Lower respiratory tr act infection (Primary Dx) Start: 10-27-2023 End: 10-27-2023 Subsequent hospital visit by physician Xr [facility] Work Phone: Radiology Comment on above: Acute cough [R05.1] Start: 10-27-2023 End: 10-27-2023 Patient encounter procedure Jaylan Rand APRN.CINDER WORKER Work Phone: [facility] Comment on above: URI, acute (Primary Dx); Acute cough Start: 09-01-2023 End: 09-01-2023 Office outpatient visit 15 minutes Humberto Kimyesika FIOREN.CINDER WORKER Work Phone: [facility] Comment on above: Nausea vomiting and diarrhea (Primary Dx) Start: 08-14-2023 End: 08-14-2023 Patient encounter procedure Jaylan Rand RADHA.CINDER WORKER Work Phone: [facility] Comment on above: Vomiting and diarrhe a (Primary Dx) Start: 01-21-2023 End: 01-21-[address] Princess Baca Work Phone: [facility] Work Phone: Start: 01-21-2023 End: 01-21-[address] Princess Baca Work Phone: [facility] Internal Medicine Work Phone: Start: 09-29-2022 End: 10-20-[address] Princess Baca Work Phone: [facility] Work Phone: Start: 09-29-2022 End: 10-20-[address] Princess Baca Work Phone: [facility] Work Phone: Start: 08-13-2022 End: 08-13-[address] Princess Baca Work Phone: [facility] Work Phone: Start: 06-02-2022 End: 06-02-[address] Princess Baca Work Phone: [facility] Work Phone: Start: 06-02-2022 End: 06-02-[address] Princess Baca Work Phone: [facility] Internal Medicine Start: 02-05-2017 Ambulatory NHUNG MOROCHO Facility :[facility] Procedures Date Procedure Procedure Detail Performing Clinician Start: 10-27-2023 Radiologic exam ches t 2 views Jaylan Rand APRN.CNP Work Phone: Start: 07-13-2017 Lipid 1996 panel - S tom or Plasma Jaylan Rand APRN.CNP Work Phone: Plan of Treatment Date Care Activity Detail Author Start: 05-20-2026 Urine microalbumin profile DTaP,Tdap,Td Vaccine (7 - Td or Tdap) [facility] Start: 08-27-2025 Screening for malign ant neoplasm of colon [facility] Start: 11-22-2023 Covid-19 Vaccine () Covid-19 Vaccine () [facility] Start: 11-22-2023 Covid-19 Vaccine () Covid-19 Vaccine () [facility] Start: 11-22-2023 Influenza vaccination Influenza Vacc ine (#1) [facility] Start: 01-21-2023 Patient referral [facility] Work Phone: Start: 11-21-2022 Covid-19 Vaccine ( season) Covid-19 Vaccine () [facility] Start: 08-14-2022 Patient referral [facility] Work Phone: Start: 07-13-2022 Lipid panel Lipid Screening [facility] Start: 2022 Diabetes Screening Diabetes Screenin g [facility] Start: 2022 Screening for malign ant neoplasm of colon [facility] Start: 06-02-2022 Patient referral [facility] Work Phone: Start: 11-17-2017 Pneumococcal vaccination Pneumococcal Vaccine (2 of 2 - PCV) [facility] Start: 2017 Screening for malign ant neoplasm of breast Mammogram Screening [facility] Start: 11-11-2010 Screening for malign ant neoplasm of cervix Pap Testing [facility] Start: 11-11-2008 Screening for malign ant neoplasm of cervix Cervical Cancer Screening [facility] Start: 06-26-2007 Screening for malign ant neoplasm of cervix HPV Testing [facility] Start: 1996 Hepatitis B Vaccine (1 of 3 - 19+ 3-dose series) Hepatitis B Vaccine (1 of 3 - 19+ 3-dose series) [facility] Start: 06-26-1995 Hepatitis C screening Hepatitis C Sc shaning [facility] Start: 06-26-1995 HIV screening HIV Screening [facility] COVID & INFLUENZA A/ B & RSV NAAT, ROUTINE COVID & INFLUENZA A/B & RSV NAAT, ROUTINE Microbiology Routine URI, acute Ordered: 10/27/2023 [facility] Work Phone: Comment on above: Ordered: 10/27/2023 Patient referral [facility] Work Phone: Immunizations Immunization Date Immunization Notes Care Provider [facility] 01-21-2023 influenza, injectabl e, quadrivalent, preservative free Dr. Princess Baca Work Phone: [facility] 01-21-2023 influenza virus vacc ine, unspecified formulation Jaylan Rand APRN.CINDER WORKER Work Phone: [facility] 12-19-2019 influenza, injectabl e, quadrivalent, preservative free Dr. Princess Baca Work Phone: [facility] 12-19-2019 influenza, seasonal, injectable Dr. Princess Baca Work Phone: [facility] 11-17-2016 pneumococcal polysaccharide vaccine, 23 valent Jaylan Rand APRN.CINDER WORKER Work Phone: [facility] 05-20-2016 tetanus toxoid, redu jessica diphtheria toxoid, and acellular pertussis vaccine, adsorbed Jaylan Rand APRN.CINDER WORKER Work Phone: [facility] 05-02-1986 tuberculin skin test ; purified protein derivative solution, intradermal [facility] Work Phone: [facility] 10-23-1982 diphtheria, tetanus toxoids and pertussis vaccine Jaylan Rand APRN.CINDER WORKER Work Phone: [facility] 10-23-1982 trivalent poliovirus vaccine, live, oral Jaylan Giorgi SUPERVISOR MOLDING.CINDER WORKER Work Phone: [facility] 05-02-1980 diphtheria, tetanus toxoids and pertussis vaccine Jaylan Giorgi SUPERVISOR MOLDING.CINDER WORKER Work Phone: [facility] 05-02-1980 trivalent poliovirus vaccine, live, oral Jaylan Giorgi SUPERVISOR MOLDING.CINDER WORKER Work Phone: [facility] 01-22-1979 measles, mumps and rubella virus vaccine Jaylan Giorgi SUPERVISOR MOLDING.CINDER WORKER Work Phone: [facility] 1977 diphtheria, tetanus toxoids and pertussis vaccine Jaylan Giorgi SUPERVISOR MOLDING.CINDER WORKER Work Phone: [facility] 1977 trivalent poliovirus vaccine, live, oral Jaylan Giorgi SUPERVISOR MOLDING.CINDER WORKER Work Phone: [facility] 1977 diphtheria, tetanus toxoids and pertussis vaccine Jaylan Giorgi SUPERVISOR MOLDING.CINDER WORKER Work Phone: [facility] 1977 trivalent poliovirus vaccine, live, oral Jaylan Giorgi SUPERVISOR MOLDING.CINDER WORKER Work Phone: [facility] 1977 diphtheria, tetanus toxoids and pertussis vaccine Jaylan Giorgi SUPERVISOR MOLDING.CINDER WORKER Work Phone: [facility] Work Phone: 1975 trivalent poliovirus vaccine, live, oral Jaylan Giorgi SUPERVISOR MOLDING.CINDER WORKER Work Phone: [facility] Payers Date Payer Category Payer Self-pay [id number] 2022 Medicaid [id number] 2022 Unknown [id number] Medicaid [id number] Unknown [id number] 2.16.8 40.1.197173.3.579.2.462 Unknown [id number] 2.16.8 40.1.339274.3.579.2.462 Unknown [id number] 2.16.8 40.1.434896.3.579.2.462 Unknown [id number] 2.16.8 40.1.844408.3.579.2.462 Unknown [id number] 2.16.8 40.1.539340.3.579.2.462 Unknown [id number] 2.16.8 40.1.851361.3.579.2.462 Unknown [id number] 2.16.8 40.1.948113.3.579.2.462 Unknown [id number] 2.16.8 40.1.946108.3.579.2.462 Unknown [id number] 2.16.8 40.1.049090.3.579.2.462 Unknown [id number] 2.16.8 40.1.496828.3.579.2.462 Unknown [id number] 2.16.8 40.1.702031.3.579.2.462 Unknown [id number] 2.16.8 40.1.741944.3.579.2.462 Unknown [id number] 2.16.8 40.1.320860.3.579.2.462 Unknown [id number] 2.16.8 40.1.826556.3.579.2.462 Unknown [id number] 2.16.8 40.1.397112.3.579.2.462 Unknown [id number] 2.16.8 40.1.424152.3.579.2.462 Unknown [id number] 2.16.8 40.1.209312.3.579.2.462 Unknown [id number] 2.16.8 40.1.099998.3.579.2.462 Unknown [id number] 2.16.8 40.1.666124.3.579.2.462 Unknown [id number] 2.16.8 40.1.995812.3.579.2.462 Unknown [id number] 2.16.8 40.1.541345.3.579.2.462 Unknown [id number] 2.16.8 40.1.333219.3.579.2.462 Unknown [id number] 2.16.8 40.1.088602.3.579.2.462 Unknown [id number] 2.16.8 40.1.608522.3.579.2.462 Unknown [id number] 2.16.8 40.1.969887.3.579.2.462 Unknown [id number] 2.16.8 40.1.067308.3.579.2.462 Unknown [id number] 2.16.8 40.1.036689.3.579.2.462 Unknown [id number] 2.16.8 40.1.908260.3.579.2.462 Unknown [id number] 2.16.8 40.1.369603.3.579.2.462 Unknown [id number] 2.16.8 40.1.409208.3.579.2.462 Unknown [id number] 2.16.8 40.1.869669.3.579.2.462 Unknown [id number] 2.16.8 40.1.536013.3.579.2.462 Unknown [id number] 2.16.8 40.1.040204.3.579.2.462 Unknown [id number] 2.16.8 40.1.621311.3.579.2.462 Unknown [id number] 2.16.8 40.1.244444.3.579.2.462 Unknown [id number] 2.16.8 40.1.389215.3.579.2.462 Unknown [id number] 2.16.8 40.1.492915.3.579.2.462 Unknown [id number] 2.16.8 40.1.222618.3.579.2.462 Unknown [id number] 2.16.8 40.1.407271.3.579.2.462 Unknown [id number] 2.16.8 40.1.031835.3.579.2.462 Unknown [id number] 2.16.8 40.1.650923.3.579.2.462 Social History Date Type Detail Facility Start: 06-02-2022 End: 01-21-2023 Tobacco smoking status NHIS Unknown if ever smoked [facility] Start: 12-15-2019 Heavy [facility] Start: 12-15-2019 None [facility] Start: 12-15-2019 With Family [facility] Start: 12-15-2019 Cigarettes [facility] Start: 1975 Sex Assigned At Female [facility] Start: 08-14-2023 End: 11-07-2023 Tobacco smoking status NHIS Smokes tobacco daily [facility] History of tobacco use Cigarette Smoker C [facility] Start: 02-26-2020 End: 08-14-2023 Cigarettes smoked current (pack per day) - Reported 0.5 [facility] Start: 08-14-2023 End: 11-07-2023 Tobacco use and exposure Smokeless tobacco non-user [facility] Start: 08-14-2023 End: 05-09-2024 Alcohol intake Current drinker of alcohol (finding) [facility] Start: 02-26-2020 End: 08-14-2023 Tobacco use panel [facility] Adult Depression Screening Assessment 0 [facility] Start: 1975 Sex Assigned At Not on file C [facility] Clinical Notes 08-14-2023 to 10-27-2024 Jose Manuel Ogden PA-C - 05/09/2024 1:54 PM ESTPatient InstructionsSheyla Alfonso APRN.CNP - 04/11/2024 10:32 AM Jayda Chisholm APRN.CNP - 11/07/2023 1:07 PM EDTPatient Instructions Note Date & Type Note Facility 10-27-2024 Note HNO ID: [id number] Author: JAYDA PEÑALOZA APRN.CNP Service: ? Author Type: Nurse Practitioner [...] absence due to illness. and Recording using Bitdel[employer] software for draft documentation of the visit was discussed with the patient/authorized career services representative; all questions welcomed and answered. Patient/authorized career services representative agreed to proceed MDM Procedures [facility] 05-09-2024 Note HNO ID: [id number] Author: JOSE MANUEL OGDEN PA-C Service: ? Author Type: Physician Bait Tier Type: Progress Notes Filed: 05/09/2024 14:07 Note Text: This note was created using globa.lyriter. Subjective Miguel Melvin is a 48 year [...] 20 MG TABLET Jose Manuel Ogden PA-C [facility] 05-09-2024 History of Presen t illness Narrative This note was created using [employer]. Subjective Miguel Melvin is a 48 year [...] 20 MG TABLET Jose Manuel Ogden PA-C documented in this encounter [facility] 04-11-2024 Instructions Sheyla Alfonso APRN.CINDER WORKER - 04/11/2024 10:35 AM EST ASSESSMENT/PLAN: 1. [...] Discussed expected course of illness Sheyla Alfonso APRN.CINDER WORKER CONJUNCTIVITIS GENERAL INFORMATION: Conjunctivitis is also known [...] F (38 C). documented in this encounter [facility] 04-11-2024 Note HNO ID: [id number] Author: SHEYLA ALFONSO APRN.CINDER WORKER Service: ? Author Type: Nurse Practitioner Type: [...] needed. (Patient not taking: Reported on 04/11/2024) Pyoimvstcisiwpa-Hwnpuhuag-UU (BROMFED DM) 2-30-10 mg/5 mL syrup Take [...] Extraocular movements intact. (more content not included)... [facility] 04-11-2024 History of Presen t illness [...] needed. (Patient not taking: Reported on 04/11/2024) Pshfrgsjjupwgcd-Itgjqirzk-ES (BROMFED DM) 2-30-10 mg/5 mL syrup Take [...] Discussed expected course of illness Sheyla Alfonso APRN.CINDER WORKER documented in this encounter [facility] 11-07-2023 Note HNO ID: [id number] Author: JAYDA PEÑALOZA APRN.TARA Service: ? Author [...] Take 1 capsule by mouth twice daily. Zfytaswqgkuhmgw-Tlmhvqdih-OI (BROMFED DM) 2-30-10 mg/5 mL syrup Take [...] tobacco: Never Jordan (more content not included)... [facility] 11-07-2023 History of Presen t illness [...] Take 1 capsule by mouth twice daily. Oluabeuxkgxpzrw-Vehnhbtej-TF (BROMFED DM) 2-30-10 mg/5 mL syrup Take [...] Patient agreeable to treatment plan. Jayda Peñaloza APRN.CINDER WORKER documented in this encounter [facility] 11-02-2023 Note HNO ID: [id number] Author: SHEYLA ALFONSO APRN.TARA Service: ? Author [...] Device one time only for 1 dose. Pqhtncbccqoxook-Xyytdpkka-PH (BROMFED DM) 2-30-10 mg/5 mL syrup Take [...] Right Ear: Tym (more content not included)... [facility] 11-02-2023 History of Presen t illness [...] Device one time only for 1 dose. Dovzehpmjytulap-Hzpcaivyb-JE (BROMFED DM) 2-30-10 mg/5 mL syrup Take [...] Discussed expected course of illness Sheyla Alfonso APRN.CINDER WORKER documented in this encounter [facility] 11-02-2023 Instructions Sheyla Alfonso APRN.CINDER WORKER - 11/02/2023 1:25 PM EDT ASSESSMENT/PLAN: 1. [...] Discussed expected course of illness Sheyla Alfonso APRN.TARA ACUTE BRONCHITIS: You have acute bronchitis. This [...] of proper treatment. documented in this encounter [facility] 10-29-2023 History of Presen t illness [...] Take 1 capsule by mouth twice daily. Ozmbnbbgpihilag-Kacyuesle-ZS (BROMFED DM) 2-30-10 mg/5 mL syrup Take [...] of care. This note was generated using [employer] software. It may contain errors in wording, punctuation, or spelling. Humberto Miller APRN.TARA documented in this encounter [facility] 10-27-2023 History of Presen t illness [...] PATIENT PRESENTS WITH AN IMPLANTABLE OR ATTACHED FLIGHT OPERATIONS DISPATCH CLERK: No RADIOLOGY DEPARTMENT: General X-ray: Exam(s) Completed: Chest X-Ray PERIPHERAL IV DATA: Not applicable SIGNED BY: RT Jasmin(R) October 27, 2023 1:00 PM documented in this encounter [facility] 10-27-2023 History of Presen t illness [...] mg tablet Take 5 mg by mouth. Znpuztowmvrgiyl-Mpjioavao-LO (BROMFED DM) 2-30-10 mg/5 mL syrup Take [...] abnormality. Dictated by : MD Jaylan QUIÑONES APRN.CINDER WORKER documented in this encounter [facility] 09-01-2023 History of Presen t illness [...] mg tablet Take 5 mg by mouth. Zizezqxgktrzuhq-Zqunwpxxv-QK (BROMFED DM) 2-30-10 mg/5 mL syrup Take [...] of care. This note was generated using [employer] software. It may contain errors in wording, punctuation, or spelling. Humberto Miller APRN.TARA documented in this encounter [facility] 08-14-2023 History of Presen t illness [...] Take 1 capsule by mouth twice daily. Dqlesewoiqwklxi-Hjqzfhnaz-TU (BROMFED DM) 2-30-10 mg/5 mL syrup Take [...] flag s/s discussed Push fluids Jaylan Rand APRN.CINDER WORKER documented in this encounter [facility] Evaluation note Diagnosis Onset Date Anxiety and depression acute Bipolar depression acute Morbid obesity [facility] Work Phone: Evaluation note* Diagnosis Onset Date Resolution Status Anxiety and depression acute Obesity [facility] Work Phone: Evaluation note* Diagnosis Onset Date Resolution Status Flu vaccine need acute Anxiety and depression chron ic Dermatitis chronic Hypertension [facility] Work Phone: Evaluation note* Diagnosis Vomiting and diarrhea- Primary Vomiting alone [facility]* Diagnosis Nausea vomiting and diarrhea- Primary Diarrhea [facility]* Diagnosis URI, acute- Primary Acute upper respiratory infections of unspecified site Acute cough [facility]* Diagnosis Lower respiratory tract infection- Primary Other diseases of respiratory system, not elsewhere classified documented [facility] this encounter [facility]* Diagnosis Viral bronchitis- Primary Acute bronchitis Otalgia of both ears Otalgia, unspecified documented [facility] this [facility]* Diagnosis Acute cough- Primary Respiratory infection Other diseases of respiratory system, not elsewhere classified [facility] this [facility]* Diagnosis Conjunctivitis of both eyes, unspecified conjunctivitis type- Primary [facility] Diagnosis Urticaria of unknown origin- Primary documented in this encounter [facility] Summary Purpose Family History No Family History Records Found Relationship Condition Age at Onset Recorded Date/T john Not Specified Anxiety with depression Unknown grandmother Malignant neoplasm Unknown grandfather Dementia Unknown Advance Directives No Advanced Directives Records Found Advance Directive Response Recorded Date/ Time Advance Directives No April 12:14pm Living Will No June 05, 2021 9:26pm Power of Veneer Sorter No June 05 9:26pm Advance Directive Response Recorded Date/ Time Advance Directives No February 28, 2020 12:21pm Living Will No June 05, 2021 9:26pm Power of Veneer Sorter No June 05 9:26pm Advance Directive Response Recorded Date/ Time Advance Directives No November 12:04pm Living Will No November 28, 2 023 12:04pm Power of Veneer Sorter No November 28, 2022 12:04pm Chief Complaint [...] section and content) DATE CREATED AUTHOR 09/15/2017 [employer] DATE CREATED AUTHOR AUTHOR'S ORGANIZ ATION 10/30/2024 [facility] DATE CREATED AUTHOR AUTHOR'S ORGANIZ ATION 01/30/2025 [facility] Care Teams (unrecognized sec tion and content) Team Status: Active Member Role Status Dates Dr. Elfego Hall MD Family Provider Active Dr. Princess Baca MD Primary Care Provider Active Team Status: Inactive Member Role Status Dates Dr. Princess Baca MD Primary Care P valentin, Attending Provider, Referring Provider Active Team Status: Inactive Member Role Status Dates Jose Manuel Ferrer SOFT WORK WRAPPER LAYER AND EXAMINER, SOFT WORK WRAPPER LAYER AND EXAMINER-C Attending Provider Active Dr. Princess Baca MD Primary Care Provider, Refer ring Provider Active Team Status: Inactive Member Role Status Dates Dr. Princess Baca MD Primary Care Provider Active Jose Manuel Ferrer SOFT WORK WRAPPER LAYER AND EXAMINER, SOFT WORK WRAPPER LAYER AND EXAMINER-C Attending Provider, Referring Prov ider Active Team Status: Inactive Member Role Status Dates Dr. Princess Baca MD Primary Care Provider, Atten ding Provider Active Hot Stick Worker Relationship Specialty Start Date End Date Princess Baca MD [address] [place] [id number] PCP - General Internal Medicine 08/14/23 Hot Stick Worker Relationship Specialty Start Date End Date Princess Baca MD [address] [place] [address] PCP - General Internal Medicine 08/14/23 Hot Stick Worker Relationship Specialty Start Date End Date Princess Baca MD [address] [place] [address] PCP - General Internal Medicine 08/14/23 Hot Stick Worker Relationship Specialty Start Date End Date Princess Baca MD [address] [place] [address] PCP - General Internal Medicine 08/14/23 Hot Stick Worker Relationship Specialty Start Date End Date Princess Baca MD [address] [place] [address] PCP - General Internal Medicine 08/14/23 Hot Stick Worker Relationship Specialty Start Date End Date Princess Baca MD [address] [place] [address] PCP - General Internal Medicine 08/14/23 Hot Stick Worker Relationship Specialty Start Date End Date Princess Baca MD [address] [place] [address] PCP - General Internal Medicine 08/14/23 Hot Stick Worker Relationship Specialty Start Date End Date Princess Baca MD [address] [place] [address] PCP - General Internal Medicine 08/14/23 Goals [...] or prosecute any alcohol or drug abuse patient.[facility] the event this information is protected by the Federal Confidentiality of Alcohol and Drug Abuse Patient Records regulations: The Federal rules restrict any use of the information to criminally investigate or prosecute any alcohol or drug abuse patient.[facility] the event this information is protected by the Federal Confidentiality of Alcohol and Drug Abuse Patient Records regulations: The Federal rules restrict any use of the information to criminally investigate or prosecute any alcohol or drug abuse patient.[facility] the event this information is protected by the Federal Confidentiality of Alcohol and Drug Abuse Patient Records regulations: The Federal rules restrict any use of the information to criminally investigate or prosecute any alcohol or drug abuse patient.[facility] the event this information is protected by the Federal Confidentiality of Alcohol and Drug Abuse Patient Records regulations: The Federal rules restrict any use of the information to criminally investigate or prosecute any alcohol or drug abuse patient.[facility] the event this information is protected by the Federal Confidentiality of Alcohol and Drug Abuse Patient Records regulations: The Federal rules restrict any use of the information to criminally investigate or prosecute any alcohol or drug abuse patient.[facility] the event this information is protected by the Federal Confidentiality of Alcohol and Drug Abuse Patient Records regulations: The Federal rules restrict any use of the information to criminally investigate or prosecute any alcohol or drug abuse patient.[facility] the event this information is protected by the Federal Confidentiality of Alcohol and Drug Abuse Patient Records regulations: The Federal rules restrict any use of the information to criminally investigate or prosecute any alcohol or drug abuse patient.[facility] the event this information is protected by the Federal Confidentiality of Alcohol and Drug Abuse Patient Records regulations: The Federal rules restrict any use of the information to criminally investigate or prosecute any alcohol or drug abuse patient.[facility] Reason for Visit (unrecogniz ed section [...] BE BASED ON THE PRIMARY CLINICAL RECORDS. [employer] [facility]. provides no warranty or guarantee of the accuracy or completeness of information in this document.
[2025-01-31 06:29] LABS: Hematocrit 30.2 % (37-47); Hemoglobin 8.8 g/dL (12.0-15.0); Mean Corp Hgb Conc 29.1 g/dL (32-36); Mean Corpuscular Volume 76.8 fL (81-99); Mean Platelet Vol. 10.4 fl (6.2-12.0); POSITIVE MORPHOLOGY YES; Platelet Count 273 K/mm3 (150-450); RBC Distribution Width CV 22.1 % (11.6-14.6); RBC Distribution Width SD 61.3 fl (35.1-43.9); Red Blood Count 3.93 M/mm3 (4.2-5.4); White Blood Count 6.3 K/mm3 (4.4-11.0)
[2025-01-31 06:30] LABS: Scan Indicated on CBC? Y/N YES- FLAGS NOTED
[2025-01-31] MEDS: Magnesium 1 GM over 15 mins IV (06:30)
[2025-01-31] MEDS: Lactated Ringers 1,000 ML 40 ML IV (06:50)
[2025-01-31] MEDS: Scopolamine 1mg/72hr Patch 1 PATCH TD (06:50)
--- NOTE | 2025-01-31 07:16 | PCM.HP.BLA ---
History and Physical Date of Admission: 01/31/25 Intake Vital Signs 11/07/2513:11 12/23/2510:40 01/12/2510:00 01/27/2509:06 Height 5 ft 6 in 5 ft 6 in 5 ft 6 in 5 ft 6 in Weight: 252 lb 9 oz BMI 40.7 BP 138/82 H Intake Visit Reasons: TRH BS Cysto *ppu Chief Complaint: Preop Manager Managed Backup Services Required: No Is patient in pain?: No Allergies cinnamon Allergy (Verified 01/27/25 09:09) Rash Medications Medication Instructions Recorded Confirmed Type albuterol sulfate 90 mcg/actuation 1 - 2 puff inhalation Q6H PRN 03/26/21 01/27/25 Rx aerosol inhaler shortness of breath or wheezing #8.5 grams hydroxyzine HCl 25 mg tablet 25 mg PO BID PRN anxiety #30 tabs 12/08/23 01/27/25 Rx hydrocortisone 2.5 % topical cream 1 applic topical BID PRN rash 07/27/24 01/27/25 Rx #453.6 grams atorvastatin 40 mg tablet 40 mg PO QHS #90 tabs 08/30/24 01/27/25 Rx carvedilol 3.125 mg tablet 3.125 mg PO BID #180 tabs 08/30/24 01/27/25 Rx clopidogrel 75 mg tablet 75 mg PO DAILY #90 tabs 08/30/24 01/27/25 Rx losartan 25 mg tablet 25 mg PO QDAY blood pressure #90 08/30/24 01/27/25 Rx tabs folic acid 1 mg tablet 1 mg PO DAILY supplement #90 tabs 09/05/24 01/27/25 Rx pantoprazole 40 mg tablet,delayed 40 mg PO DAILY #90 tabs 09/05/24 01/27/25 Rx release buspirone 15 mg tablet 15 mg PO TID #270 tabs 09/15/24 01/27/25 Rx cariprazine 3 mg capsule (Vraylar) 3 mg PO DAILY mental health #30 09/15/24 01/27/25 Rx caps escitalopram oxalate 10 mg tablet 10 mg PO DAILY depression #90 tabs 09/15/24 01/27/25 Rx aspirin 81 mg tablet,delayed 81 mg PO DAILY@0800 #90 tabs 12/09/24 01/27/25 Rx release valacyclovir 500 mg tablet 500 mg PO BID #14 tabs 01/10/25 01/27/25 Rx (Valtrex) bupropion HCl 150 mg 24 hr tablet, 150 mg PO QHS 01/19/25 01/27/25 History extended release (Wellbutrin XL) bupropion HCl 150 mg tablet,12 hr 300 mg PO DAILY mental health 01/19/25 01/27/25 History sustained-release ferrous sulfate 325 mg (65 mg 325 mg PO DAILY supplement 01/19/25 01/27/25 History iron) tablet (FeroSul) medroxyprogesterone 10 mg tablet 10 mg PO BID 01/19/25 01/27/25 History Is last menstrual period known: No Post menopausal: No Patient : No : No PFSH Medical History Loss of hearing Wears glasses Bipolar disorder Depression Anxiety Alcohol use Bladder disease Anemia Low iron High cholesterol Pulmonary embolism Restless legs Migraine headache Epilepsy Smoker Shortness of breath on exertion Hypertension History of echocardiogram Cardiology follow-up encounter History of irregular heartbeat Neuropathy Hypersomnolence Heart attack Cough Borderline type 2 diabetes 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 Dermatitis Anxiety and depression Bilateral primary osteoarthritis of knee Knee pain, bilateral Abdominal wall abscess Sinusitis Screening for thyroid disorder COVID-19 Right elbow pain Swelling of thyroid gland Enlarged uterus Osteoarthritis of both knees GERD (gastroesophageal reflux disease) Depression Anxiety Surgical History History of cardiac catheterization Stented coronary artery (11/12/23) Shepherd teeth removed History of History of tubal ligation Family History Grandmother Cancer Grandfather Dementia Other Depression with anxiety Social History household members: children housing: house number of children: 4 current occupational status: employed current occupation: [employer] history of recent travel: No sexually active: Yes Smoking Status: Current every day smoker tobacco type: cigarettes Tobacco: How many years used: 15 how long ago did patient quit smokin11/12/23 alcohol intake: former year quit: 2019 details: 8 months sober substance use type: does not use diet: diabetic and low carbohydrate caffeine: Yes Type: carbonated beverages Number of servings: 1 what type of physical activity do you participate in: walking seatbelt use: always do you feel safe at home: Yes additional social history: single HPI TRH BS Cysto - pre-procedure note Details: The patient is a 49-year-old (one , 3 vag) female presenting with abnormal uterine bleeding and for hysterectomy preop exam. The patient has been experiencing abnormal uterine bleeding, characterized by bleeding for 25 days out of the month. An ultrasound revealed a 5 cm fibroid in the uterus, which measures 13 cm in total, compared to an average uterus size of 7 cm. The patient has been advised that a hysterectomy may be necessary, but alternative options such as uterine artery embolization were discussed. The patient has a significant medical history, including a myocardial infarction in October of the previous year, requiring a stent placement due to a 98% blockage in the main artery. She also has a history of pulmonary embolism, hypertension, hyperlipidemia, and borderline type 2 diabetes mellitus. The patient is currently on clopidogrel and requires cardiology clearance before any surgical intervention, for which has been completed and cleared. The patient has a history of neuropathy, anemia, depression, anxiety, osteoarthritis of the knees, and gastroesophageal reflux disease. She has experienced upper respiratory infections, bronchitis, and sinusitis in the past. The patient has a history of alcohol use disorder, for which she underwent detoxification and has been in remission for four and a half years. The patient smokes approximately half a pack of cigarettes every two days and has attempted smoking cessation in the past. She has been advised to consider smoking cessation, especially in light of her cardiovascular history. EMB and pap negative. FINDINGS: Measurements: Uterus: 13.3 x 6.6 x 7.8 cm for volume of 355.4 mL Endometrial Thickness: 0.3 cm Right ovary: Not visualized due to shadowing bowel gas Left ovary: 4.7 x 2.6 x 3.3 cm for volume of 20.7 mL Uterus: Anteverted. There is a heterogeneous lesion at the uterine fundus measuring 3.4 x 4.4 x 5.0 cm, without significant internal vascularity. Nabothian cysts at the cervix. Endometrium: Poorly visualized Right ovary: Not visualized due to shadowing bowel gas Left ovary: Normal size and echotexture. Cul-de-sac: No free intraperitoneal fluid identified. DOPPLER: Color Doppler: Normal color flow doppler signal at the left ovary. Spectral Doppler: Normal arterial inflow and venous outflow signal at the left ovary. US/Pelvic w/ Transvaginal IMPRESSION: 1. Heterogeneous lesion at the uterine fundus measuring 5.0 cm, statistically likely to represent a leiomyoma. 2. Nonvisualization of the right ovary. Unremarkable left ovary. History 5 Elective abortions 1 Hx Para 4 Spontaneous abortions Hx # Term Pregnancies Ectopic pregnancies Hx # Pregnancies Multiple births # of living children 4 Past Pregnancies Del. Date Name GA/Weeks Outcome Route Bth Weight Gen Labor Lgth Anesthesia Del Locatn Provider FOB Unknown [place] 1996 Unknown [place] 1996 Unknown [place] 1999 Unknown [place] 2003 ROS Const ROS Unobtainable: All systems reviewed & are unremarkable except as noted in H Resp Resp: Reports system reviewed and no additional complaints, except as documented; Denies cough GI GI: Reports as per HPI Psych Psych: Reports system reviewed and no additional complaints, except as documented Exam Const General: cooperative, healthy appearing, comfortable and no acute distress Resp Effort & Inspection: normal respiratory effort Skin General: no rashes or lesions noted Psych Appearance: grossly normal Speech and Movement: speech and movement normal Coding Level of Care Code Off vis,est,level 4 Diagnoses Fibroid uterus D25.9 Menorrhagia N92.0 Menorrhagia with irregular cycle N92.1 Assessment and Plan Assessment and Plan (1) Fibroid uterus: Status: Acute (2) Menorrhagia: Status: Chronic (3) Menorrhagia with irregular cycle: Status: Acute Plan Assessment and Plan 49-year-old female with a history of myocardial infarction, pulmonary embolism, hypertension, hyperlipidemia, and borderline type 2 diabetes mellitus presenting with abnormal uterine bleeding due to uterine fibroid. The patient's abnormal uterine bleeding is likely due to the presence of a 5 cm fibroid in a 13 cm uterus, significantly larger than the average size. Given her cardiovascular history, including a myocardial infarction and pulmonary embolism, surgical intervention such as hysterectomy requires careful consideration and cardiology clearance. Alternative treatments, such as uterine artery embolization, were discussed, but the patient is concerned about the potential for recurrence and the need for future interventions. The patient's medical history is complicated by neuropathy, anemia, depression, anxiety, osteoarthritis, and gastroesophageal reflux disease, which may impact her overall health and treatment options. Her history of alcohol use disorder, now in remission, and current tobacco use are additional factors that need to be addressed, particularly in the context of her cardiovascular health. 1. Uterine Fibroid The patient is considering a hysterectomy due to a 5 cm fibroid causing significant uterine enlargement and abnormal bleeding. Alternative treatment options, such as uterine artery embolization, were discussed, but the patient is concerned about the potential for recurrence and the need for future interventions. Cardiology clearance was granted. 2. Myocardial Infarction The patient has a history of myocardial infarction and is currently on clopidogrel, held as of 02/14 3. Hypertension The patient has a history of hypertension, which is being managed as part of her overall cardiovascular health plan. 4. Hyperlipidemia The patient has a history of hyperlipidemia, which is being managed as part of her cardiovascular health plan. 5. Pulmonary Embolism The patient has a history of pulmonary embolism, which necessitates careful consideration of anticoagulation management during any surgical intervention. 6. Borderline Type 2 Diabetes Mellitus The patient has borderline type 2 diabetes mellitus, which is being monitored as part of her overall health management. 7. Neuropathy The patient has a history of neuropathy, which may impact her overall health and treatment options. 8. Anemia The patient has a history of anemia, which may require monitoring and management, especially in the context of her abnormal uterine bleeding. 9. Depression The patient has a history of depression, which is being managed as part of her overall mental health care. 10. Anxiety The patient has a history of anxiety, which is being managed as part of her overall mental health care. 11. Osteoarthritis Of The Knees The patient has osteoarthritis of the knees, which may impact her mobility and overall health. 12. Gastroesophageal Reflux Disease (Gerd) The patient has gastroesophageal reflux disease, which is being managed as part of her overall health care. 13. Alcohol Use Disorder, In Remission The patient has a history of alcohol use disorder, currently in remission, which is an important consideration in her overall health management. 14. Tobacco Use Disorder The patient smokes approximately half a pack of cigarettes every two days and has been advised to consider smoking cessation, especially in light of her cardiovascular history. After discussing the patient's diagnosis and treatment plan options, patient wishes to proceed with surgical management. I have discussed with the patient the risks, benefits, and alternatives of the procedure which include but are not limited to risks of anesthesia, bleeding, infection, possible damage to bowel, bladder, or surrounding vasculature which could lead to additional surgery to evaluate any complications. Patient agrees to procedure and wishes to proceed. ACOG/uptodate references given for additional information regarding procedure. stopped plavix as of 01/26/2025, instructions to restart on day after surgery.
--- NOTE | 2025-01-31 07:17 | PCM.DC ---
Discharge Instructions DC O2, CPAP, BIPAP needs Home O2 Discharge instructions: No Dressing / Incision Discharge Activity: May Shower May resume sexual activity in: 8 weeks Weight Bearing Status: Full weight bearing Lifting Restrictions: 10 pounds for 2 weeks Dressing / Incision Call your doctor if your incision/area has: Continuous Slow Oozing, Sudden Increased Bleeding, Increased Pain/ Swelling, Increased Redness and Foul Smelling Discharge Call your doctor if you observe: Fever of 101 or Higher, Using more than 1 pad per hour, Shortness of breath, Chest pain and Uncontrolled pain Suture Line Care: Avoid Pulling/Pushing and Avoid Pinching/Bending Remove Dressing in: 1 week (if present) Cleanse incision/area with: Soap & Water and Keep Dressing Clean & Dry Follow Up Care Please Follow Up With: Angelita Lucio DO When: Call to make an appointment with your doctor for a postop visit in 2 and 6 weeks Test Results: Test results from this visit will be discussed in further detail at your follow-up appointment, if applicable. Discharge Plan Admission Primary Reason for Your Visit: robotic hysterectomy Attending Provider: Angelita Lucio Primary Care Provider: Princess Baca Instructions Print Language: Indonesian Discharge Orders/Prescriptions Prescriptions: New oxycodone-acetaminophen [Percocet] 5-325 mg tablet 1 tab PO Q4H PRN (Reason: pain) 7 Days Qty: 30 0RF ibuprofen 800 mg tablet 800 mg PO Q8H PRN (Reason: pain) Qty: 30 0RF Continued albuterol sulfate 90 mcg/actuation HFA aerosol inhaler 1 - 2 puff inhalation Q6H PRN (Reason: shortness of breath or wheezing) Qty: 8.5 0RF hydrocortisone 2.5 % cream 1 applic topical BID PRN (Reason: rash) Qty: 453.6 0RF atorvastatin 40 mg tablet 40 mg PO QHS Qty: 90 3RF carvedilol 3.125 mg tablet 3.125 mg PO BID Qty: 180 3RF Patient Comments: pt unsure if she is on that losartan 25 mg tablet 25 mg PO QDAY Qty: 90 3RF buspirone 15 mg tablet 15 mg PO TID Qty: 270 2RF Vraylar 3 mg capsule 3 mg PO DAILY Qty: 30 3RF escitalopram oxalate 10 mg tablet 10 mg PO DAILY Qty: 90 1RF bupropion HCl [Wellbutrin XL] 150 mg tablet extended release 24 hr 150 mg PO QHS medroxyprogesterone 10 mg tablet 10 mg PO BID bupropion HCl 150 mg tablet sustained-release 12 hr 300 mg PO DAILY ferrous sulfate [FeroSul] 325 mg (65 mg iron) tablet 325 mg PO DAILY Rx Instructions: take 1 tablet by mouth once daily clopidogrel 75 mg tablet 75 mg PO DAILY Qty: 90 3RF Rx Instructions: start on post op day #1 (day after surgery) hydroxyzine HCl 25 mg tablet 25 mg PO BID PRN (Reason: anxiety) Qty: 30 1RF folic acid 1 mg tablet 1 mg PO DAILY Qty: 90 3RF pantoprazole 40 mg tablet,delayed release (DR/EC) 40 mg PO DAILY Qty: 90 1RF aspirin 81 mg tablet,delayed release (DR/EC) 81 mg PO DAILY@0800 Qty: 90 3RF valacyclovir [Valtrex] 500 mg tablet 500 mg PO BID Qty: 14 0RF Referrals / Follow Up: Princess Baca MD [Primary Care Provider, Internal Medicine] Disposition Disposition (needs filled in before D/C Order can be placed): Home, Self Care
--- NOTE | 2025-01-31 07:19 | PCM.PRE.AN2 ---
ASA Classification* ASA Classification ASA Classification: 3 (BMI > 40, HTN, T2DM, CAD w/ stent, tobacco use, GERD) Assessment & Plan Anesthesia* Anesthesia Assessment Anesthesia Assessment: Discussed sedation and/or anesthesia options, risks, benefits, and alternatives with patient/parents/legal guardian/POA. Questions invited. The patient/parents/legal guardian/POA seems to understand and agrees to proceed with anesthesia plan. Reviewed the physical assessment, medical history, allergy history and patient home medications list prior to surgery/procedure/anesthetic and documented any changes. Performed airway and anesthesia risk assessments. Anesthesia Type Anesthesia Type: General History Source History Obtained from:: Patient and Chart Anesthesia Focused Assessment* Temperature: 98.0 F Pulse Rate: 74 Blood Pressure: 120/55 Respiratory Rate: 18 Pulse Ox: 97 Oxygen Delivery Method: Room Air Airway Assessment Mouth opens: >3 cm Mallampati Score: III Teeth Condition: Intact Neck Range of motion (ROM): Full ROM Labs Anesthesia Preop lab: CBC WBC, (4.4-11.0) 6.3 K/mm3 Today, 06:20 RBC, (4.2-5.4) 3.93 M/mm3 L Today, 06:20 Hgb, (12.0-15.0) 8.8 g/dL L Today, 06:20 Hct, (37-47) 30.2 % L Today, 06:20 Plt Count, (150-450) 273 K/mm3 Today, 06:20 CHEMISTRY Potassium, (3.3-5.1) 3.8 mmol/L 01/25/25, 09:34 Sodium, (133-145) 140 mmol/L 01/25/25, 09:34 Magnesium, (1.5-2.2) 2.1 mg/dL 01/25/25, 09:33 Phosphorus, (2.5-4.9) 2.6 mg/dL 11/13/23, 04:10 BUN, (4-19) 17 mg/dL 01/25/25, 09:34 Creatinine, (0.70-1.20) 0.85 mg/dL 01/25/25, 09:34 Glucose, (70-99) 180 mg/dL H 01/25/25, 09:34 POC Glucose, (74-106) 117 mg/dL H Today, 06:31 TSH, (0.300-4.200) 0.846 uIU/mL 08/01/24, 09:52 COAG PT, (11.7-14.9) 12.5 SECONDS 01/12/25, 10:50 Tst Clinic Negative 10/30/20, 13:08 Pre-Assessment Diagnosis/Proposed Procedure Planned Operative Procedure(s): TOTAL ROBOTIC HYSTERECTOMY BSO CYSTO Anesthesia History Anesthesia History - commissions specialist: Anesthesia History - commissions specialist Hx Hospitalization No 01/19/25 15:33 Any Problems With Anesthesia No: NO SURGERY HX 01/19/25 15:33 Cholinesterase deficiency No 01/19/25 15:33 You/Your Family Experience No 01/19/25 15:33 fever (hyperthermia) with Relationship Recent Exposure to Contagious No 01/31/25 06:17 Disease Does patient have nerve No 01/19/25 15:33 stimulator Patient instructed to have device shut off --Does patient have Pacemaker No 01/31/25 06:17 or ICD? When Was Last Pacemaker Check QUESTION #4 FULL TEXT: You/Your Family Experience fever (hyperthermia) with Anesthesia Last Oral Intake Last Oral intake: Last Oral Intake NPO since 00:15 01/31/25 06:17 Meds taken in AM with sips of Yes 01/31/25 06:17 water? Meds patient instructed to see medlist 01/31/25 06:17 take am of surgery PONV PONV - commissions specialist: PONV - commissions specialist Female Yes 01/19/25 15:33 HX of Motion Sickness Yes 01/19/25 15:33 HX of N/V After Surgery No 01/19/25 15:33 Non-Smoker No 01/19/25 15:33 Duration of Surgery greater Yes 01/19/25 15:33 than 60 minutes Number of Risk Factors 3 01/19/25 15:33 PONV Score Moderate Risk 01/19/25 15:33 Height & Weight Height & Weight: Anesthesia: Height & Weight Height 5 ft 6 in 01/31/25 06:17 Weight: 117.3 kg 01/31/25 06:17 Body Mass Index (BMI) 41.7 01/31/25 06:17 Respiratory Assessment Respiratory Assessment - commissions specialist: Respiratory Tract Infection Hx - commissions specialist Hx Respiratory Tract Infection No 01/19/25 15:33 STOP Sleep Apnea STOP Sleep Apnea - commissions specialist: STOP Sleep Apnea - commissions specialist Hx Hypertension Yes: CONTROLLED WITH MED 01/19/25 15:33 Hx Sleep Apnea No 01/19/25 15:33 CPAP BIPAP Do you snore loudly (louder No 01/19/25 15:33 than talking or can be heard Do you often feel tired/ Yes 01/19/25 15:33 fatigued/ sleepy during daytime? Has anyone observed you stop No 01/19/25 15:33 breathing during sleep? STOP Results Positive 01/19/25 15:33 QUESTION #5 FULL TEXT : Do you snore loudly (louder than talking or can be heard through closed doors)? 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 Specify any problems Hx of Preganancy in last 3 No 01/19/25 15:33 Months Nurse Filling Out Transfusion DSCHRIBER 01/19/25 15:33 & Questions: Date: 01/19/25 01/19/25 15:33 Time: 15:35 01/19/25 15:33 Patient unable to answer at this time (ie. confused, unrespo /Reproduction History /Reproductive History - commissions specialist: /Reproductive Hx- commissions specialist Hx Now No 01/19/25 15:33 Gestational Age (in weeks): EDC: Hx Hx Para Hx Section SAB No 01/27/25 09:11 Does the father of the baby or his family experience fever w Father of the baby Malignant Hypertension history comment Active Medications Active Medications: Current Medications Generic Name Dose Route Start Last Admin Trade Name Berhane PRN Reason Stop Dose Admin Acetaminophen 1,000 mg 01/31/25 07:30 01/31/25 06:46 Acetaminophen 500 Mg Tablet PO 01/31/25 07:31 1,000 mg PREOP ONE Administration Celecoxib 400 mg 01/31/25 07:30 01/31/25 06:47 Celecoxib 200 Mg Capsule PO 01/31/25 07:31 400 mg PREOP ONE Administration Gabapentin 600 mg 01/31/25 07:30 01/31/25 06:47 Gabapentin 600 Mg Tablet PO 01/31/25 07:31 600 mg PREOP ONE Administration Lactated Ringer's 1,000 mls @ 40 mls/hr 01/31/25 07:30 01/31/25 06:50 IV 40 mls/hr .Q25H KESHAWN Administration Cefazolin Sodium 2 gm/ Sodium 110 mls @ 150 mls/hr 01/31/25 07:30 Chloride IV 01/31/25 08:13 INTRAOP ONE Lactated Ringer's 1,000 mls @ 70 mls/hr 01/31/25 07:30 IV .[id number] KESHAWN Magnesium Sulfate 1 gm/ 102 mls @ 408 mls/hr 01/31/25 07:30 01/31/25 06:53 Dextrose IV 01/31/25 07:44 Infused PREOP ONE Infusion Insulin Human Lispro 0 unit 01/31/25 07:30 Insulin Lispro 100 Unit/Ml Insuln.Pen SC 01/31/25 18:00 Q4H PRN PRN BG >/= 180, SEE PROTOCOL Protocol Ondansetron HCl 4 mg 01/31/25 07:30 Ondansetron 4 Mg/2 Ml Vial IV 01/31/25 07:31 INTRAOP ONE Phenazopyridine HCl 190 mg 01/31/25 07:30 01/31/25 06:47 Phenazopyridine 95 Mg Tablet PO 01/31/25 07:31 190 mg PREOP ONE Administration Scopolamine HBr 1 patch 01/31/25 07:30 01/31/25 06:50 Scopolamine 1mg/72hr Patch TD 01/31/25 07:31 1 patch PREOP ONE [facility] Medical History Loss of hearing Wears glasses Bipolar disorder Depression Anxiety Alcohol use Bladder disease Anemia Low iron High cholesterol Pulmonary embolism Restless legs Migraine headache Epilepsy Smoker Shortness of breath on exertion Hypertension History of echocardiogram Cardiology follow-up encounter History of irregular heartbeat Neuropathy Hypersomnolence Heart attack Cough Borderline type 2 diabetes mellitus Atherosclerotic heart disease of [place] coronary artery without angina pectoris Dermatitis Anxiety and depression Bilateral primary osteoarthritis of knee Knee pain, bilateral Abdominal wall abscess Sinusitis Screening for thyroid disorder COVID-19 Right elbow pain Swelling of thyroid gland Enlarged uterus Osteoarthritis of both knees GERD (gastroesophageal reflux disease) Depression Anxiety Home Medications Medication Instructions Recorded Last Taken Type albuterol sulfate 90 mcg/actuation 1 - 2 puff inhalation Q6H PRN 03/26/21 Unknown Rx aerosol inhaler shortness of breath or wheezing #8.5 grams hydroxyzine HCl 25 mg tablet 25 mg PO BID PRN anxiety #30 tabs 12/08/23 Unknown Rx hydrocortisone 2.5 % topical cream 1 applic topical BID PRN rash 07/27/24 Unknown Rx #453.6 grams atorvastatin 40 mg tablet 40 mg PO QHS #90 tabs 08/30/24 Unknown Rx carvedilol 3.125 mg tablet 3.125 mg PO BID #180 tabs 08/30/24 Unknown Rx losartan 25 mg tablet 25 mg PO QDAY blood pressure #90 08/30/24 01/31/25 Rx tabs folic acid 1 mg tablet 1 mg PO DAILY supplement #90 tabs 09/05/24 Unknown Rx pantoprazole 40 mg tablet,delayed 40 mg PO DAILY #90 tabs 09/05/24 01/31/25 Rx release buspirone 15 mg tablet 15 mg PO TID #270 tabs 09/15/24 01/31/25 Rx cariprazine 3 mg capsule (Vraylar) 3 mg PO DAILY mental health #30 09/15/24 01/31/25 Rx caps escitalopram oxalate 10 mg tablet 10 mg PO DAILY depression #90 tabs 09/15/24 01/31/25 Rx aspirin 81 mg tablet,delayed 81 mg PO DAILY@0800 #90 tabs 12/09/24 01/30/25 Rx release valacyclovir 500 mg tablet 500 mg PO BID #14 tabs 01/10/25 Unknown Rx (Valtrex) bupropion HCl 150 mg 24 hr tablet, 150 mg PO QHS 01/19/25 Unknown History extended release (Wellbutrin XL) bupropion HCl 150 mg tablet,12 hr 300 mg PO DAILY mental health 01/19/25 Unknown History sustained-release ferrous sulfate 325 mg (65 mg 325 mg PO DAILY supplement 01/19/25 Unknown History iron) tablet (FeroSul) medroxyprogesterone 10 mg tablet 10 mg PO BID 01/19/25 Unknown History clopidogrel 75 mg tablet 75 mg PO DAILY #90 tabs 01/31/25 01/24/25 Rx ibuprofen 800 mg tablet 800 mg PO Q8H PRN pain #30 tabs 01/31/25 Unknown Rx oxycodone-acetaminophen 5 mg-325 1 tab PO Q4H PRN pain 7 days #30 01/31/25 Unknown Rx mg tablet (Percocet) tabs Allergy/AdvReac Type Severity Reaction Status Date / Time cinnamon Allergy Rash Verified 01/31/25 06:12 Family History Grandmother Cancer Grandfather Dementia Other Depression with anxiety Surgical History History of cardiac catheterization Stented coronary artery (11/12/23) [place] teeth removed History of History of tubal ligation Social History household members: children housing: house number of children: 4 current occupational status: employed current occupation: [employer] history of recent travel: No sexually active: Yes Smoking Status: Current every day smoker tobacco type: cigarettes Tobacco: How many years used: 15 how long ago did patient quit smokin11/12/23 alcohol intake: former year quit: 2019 details: 8 months sober substance use type: does not use diet: diabetic and low carbohydrate caffeine: Yes Type: carbonated beverages Number of servings: 1 what type of physical activity do you participate in: walking seatbelt use: always do you feel safe at home: Yes additional social history: single Review of Systems (Anesthesia) ROS Narrative System reviewed and no additional complaints, except as documented. Physical Exam Const alert and oriented x3 Nutritional Appearance: obese Resp normal respiratory effort, normal air movement and clear to auscultation bilaterally Cardio regular rate, regular rhythm and no murmurs
--- NOTE | 2025-01-31 07:30 | UT_PTH ---
PATIENT: MIGUEL KELLY LOC: [facility] [place] U#:[id number] AGE/SX: 49/F ROOM: RE01/31/[address]: Dr. Angelita Lucio DO : 1975 BED: DIS: 01/31/2025 SPEC #: [id number] RECD: 01/31/25 11:20 STATUS: ADELINA GREENAna #: [id number] THELMA: 01/31/25 07:[address]: Angelita Lucio DEPT: SURGICAL PATHOLOGY RECD BY: Anshul De La Cruz ENTERED: 01/31/25 13:12 SP TYPE: UTERUS OTHR DR: Dr. Princess Baca MD Tissues: A - Uterus, NOS Procedures: Surgery Specimen Level V HEADER OPERATION: ERAS, laparoscopic total hysterectomy bilateral salpingectomy, cystoscopy PRE-OP DIAGNOSIS: Fibroid uterus, menorrhagia, menorrhagia with irregular cycle TISSUE SUBMITTED: A- Uterus, cervix and bilateral fallopian tubes MICROSCOPIC DIAGNOSIS A. Uterus, cervix and fallopian tubes, laparoscopic total robotic hysterectomy, bilateral salpingectomy: - Cervix: no specific pathologic change. - Endometrium: proliferative phase with benign endometrial polyp. - Myometrium: multiple intramural, submucosal and subserosal leiomyomata, up to 3.8 cm, with focal degenerative change. - Fallopian tubes: no specific pathologic change. MICROSCOPIC DESCRIPTION Slides are reviewed. GROSS DESCRIPTION A. Received in formalin labeled with the patient's name and date of . Designated as "uterus, cervix, bilateral fallopian tubes" is a 273.2 g, 12.2 x 8.1 x 6.9 cm distorted and focally disrupted (posterior) uterus with detached adnexa. The serosa is campa-pink to red with multiple campa-white, apparent subserosal leiomyomas, 0.1 cm to 1.0 cm. The attached cervix is campa-pink and measures 3.2 x 2.5 cm; the 1.2 cm os is probe patent and expelling hemorrhagic mucoid material. Mucoid small cysts are present. The specimen is inked as follows: [id number] Opening reveals a 7.9 x 3.6 cm somewhat distorted endometrial cavity lined by campa to red somewhat granular endometrium and containing a 5.6 x 3.4 cm submucosal leiomyoma distorting the majority of the anterior endometrium; the endometrium measures up to 0.3 cm thick. There is also a 0.7 x 0.5 cm superficial apparent polyp near the fundus at the posterior endometrial cavity. The myometrium is campa-pink and measures up to 2.5 cm thick; there are multiple intramural leiomyomas ranging from campa-white and whorled, to campa-white and edematous, to campa-white with patchy hemorrhage, measuring up to 3.8 cm. The undesignated, campa-pink bilateral fallopian tubes are fimbriated, measuring 5.5 x 0.4 cm and 7.2 x 0.3 cm. A few paratubal cysts are identified, up to 0.3 cm Industrial Sales Engineer sections are submitted as follows: A1: Anterior/posterior cervixA2: Anterior endomyometriumA3: Posterior endomyometriumA4-A5: Fallopian tubesA6: Posterior endometrium with possible polypA7: Submucosal leiomyomaA8: Intramural leiomyoma with hemorrhage posteriorA9: Intramural leiomyoma with edema, [id number]: Subserosal leiomyomas OR 01/31/2025 CPT:20302
--- NOTE | 2025-01-31 09:39 | OP.PCM_ITS ---
Multi Select Codes Urinary/Genital Urinary/Genital CPT Codes: 14965 Cystoscopy, 67016 TLH+BS/O >250gr uterus and 14367 Lysis of adhesions, laproscopic Operative Report (Standard) Operative Information Date of Procedure: 01/31/25 Pre-Operative Diagnosis: Menorrhagia and large fibroid uterus Post-Operative Diagnosis: Menorrhagia enlarged fibroid uterus Surgery/Procedure Performed: Total robotic hysterectomy bilateral salpingectomy and cystoscopy, lysis of adhesions managing consultant clinical professor: Yes Magnetizer: Saul Tomlinson Tasks completed by assistant passenger locomotive engineer: Closing, Trocar, Retracting and Other (Suction irrigation) Additional metal moulder's assistant?: No Type of Anesthesia: General RN Documented Start/Stop Times: Operation Date: 01/31/25 07:30 Case Time Into Pre-Op 01/31/25 06:01 Out of Pre-Op 01/31/25 07:28 Anesthesia Start 01/31/25 07:32 Into Room 01/31/25 07:32 Procedure Start 01/31/25 08:00 Procedure Start Time: 08:00 Procedure Stop Time: 09:51 Select all DRAINS/GRAFTS/IMPLANTS that apply: None Estimated Blood Loss: 50cc Fluids Replaced: 1000cc Specimen collected: Yes Description of specimen(s) removed: Uterus cervix and bilateral fallopian tubes Description of surgery: Reason for surgery: This is a 49-year-old G 3, P 3 who presented to my office with history of enlarged fibroid uterus and heavy periods she also has a history of a section and is morbidly obese. She failed conservative therapy. The planned procedure is for a robotic hysterectomy the risks benefits and alternatives were discussed with the patient the patient had a clear understanding of the procedure and a consent form was signed. Procedure: The patient was placed in the dorsal low lithotomy position and prepped and draped in the normal sterile fashion both abdominally and in the perineum. Her legs were placed in stirrups a [place] catheter was inserted into the urethra without difficulty. A weighted speculum was placed in the vagina and a single- tooth tenaculum was used to grasp the anterior lip of the cervix. An advincula uterine manipulator was inserted through the cervix without complication. It was then tied into place at the 2 and 10:00 locations on the cervix. Gloves were changed and attention was turned towards the abdomen. Approximately 23 cm above the pubic symphysis in the midline, and after Marcaine injection, a [8] mm incision was made. An 8 mm trocar was inserted through the laparoscope, then inserted into the abdomen under direct visualization using the laparoscope. Good abdominal placement was noted and no complications were appreciated. An air seal device was utilized to create pneumoperitoneum. At 12 cm lateral to the midline on the left and right sides 8 mm accessory ports were placed. Next a left upper quadrant 8 mm metal moulder's assistant port site was placed. The patient was placed in steep Trendelenburg position. The robot was docked. The hysterectomy was initiated first by taking removing the bilateral fallopian tubes using the LigaSure device. Next a large amount of adhesions to the abdominal wall were noted connected to the uterus. This was dissected using both blunt dissection and monopolar cautery using the monopolar scissors down to the level of the bladder. The round ligament on each side using the vessel sealer device. the broad ligament was then and taken down using the vessel sealer device. Next the bladder flap was taken down further without complication. This was done using monopolar cautery to the level of the cervical vaginal junction. After the bladder flap was created, uterine vessels were then isolated and cauterized using the vessel sealer device and EndoShears. At this point the uterine vessels were taken down further starting from the ascending branch, dissecting along the edges of the cervix to the level of the cervical vaginal junction with hemostasis appreciated. The cervical vaginal junction was then using monopolar cautery in a circumferential pattern across the superior aspect of the cervix. The specimen was delivered through the vagina and sent to pathology. The remaining vaginal cuff was then closed using a V lock suture. This was performed in a running technique. Excellent hemostasis was obtained and good closure was noted. Irrigation was then performed. Hemoblast was applied to the adhesion sites on the anterior abdominal wall and over the peritoneum of the bladder. All operative sites were noted to be hemostatic. A cystoscopy was performed with a 70 degree cystoscope through the urethra into the bladder without complication. The bladder was instilled with approximately 250 cc of normal saline. Intraoperative images were made. Ureteral orifices and jets were identified. No suture material was appreciated in the bladder. The bladder was then drained and cystoscope was removed. The abdominal cavity was again examined using the laparoscope after the robot was undocked. All operative sites were noted to be hemostatic. The trochars were removed under direct visualization without complication and pneumoperitoneum was reduced. At this point the skin was then closed using 4-0 Monocryl subcuticular stitch and sealed with surgical glue. The patient tolerated the procedure well sponge lap and needle counts were correct x2 the patient was taken to the recovery room in stable condition. Surgical Findings: Enlarged fibroid uterus and marked amount of adhesions of the anterior aspect of the uterus to the anterior abdominal wall. Normal-appearing fallopian tubes. Fibroid uterus. Small left ovarian cyst simple appearing. Complications Complications: No Admit VTE Documentation VTE Present on Admission: No VTE Mechan Device Prophylaxis: SCD's VTE Pharm Prophylaxis ordered?: Yes
--- NOTE | 2025-01-31 10:54 | PCM.POST.ANE ---
Anesthesia: Postop Eval I Current Vital Signs Temperature: 98.3 F Pulse Rate: 81 Blood Pressure: 96/51 Respiratory Rate: 16 Pulse Ox: 95 Assessment Airway patent: Yes Spontaneous unlabored respirations: Yes nausea: No Vomiting: No Anesthesia Complication: No Fluid Hydration Crystalloid volume administer (ml): 1,000 Total IV fluid infused: 1,000 Progress Note Anesthesia document: Postop Eval 1 completed: Yes
[2025-01-31] MEDS: Ketorolac 30 MG/ML Syringe IV (11:50)
--- NOTE | 2025-01-31 15:39 | POSTOPAN2_ITS ---
Anesthesia Postop Eval I Sum Postop Eval Completion status Anesthesia document: Postop Eval 1 completed: Yes Anesthesia Postop Eval I Summary Anesthesia Postop Eval I Summary: Anesthesia Postop Eval I: Assessment Summary Airway patent Yes 01/31/25 10:54 REAL ESTATE COORDINATOR.[email or web address] Spontaneous unlabored Yes 01/31/25 10:54 REAL ESTATE COORDINATOR.TNES respirations Mental status nausea No 01/31/25 10:54 REAL ESTATE COORDINATOR.TNES Vomiting No 01/31/25 10:54 REAL ESTATE COORDINATOR.TNES Anesthesia Postop Eval I: Fluid Summary Crystalloid volume administer 1,000 01/31/25 10:54 REAL ESTATE COORDINATOR.TNES (ml) Colloids volume administered ( ml) Blood Product volume administered (ml) Total IV fluid infused 1,000 01/31/25 10:54 REAL ESTATE COORDINATOR.TNES Anesthesia Postop Eval I: Summary Notes Anesthesia Complication No 01/31/25 10:54 REAL ESTATE COORDINATOR.TNES Anesthesia Complication Comment: Post-operative progress note Anesthesia: Postop Eval II Evaluation Mental status: Awake Pain Level: 0 nausea: No Vomiting: No Complications Anesthesia Complication: No
--- NOTE | 2025-01-31 15:39 | PCM.POSTANE2 ---
Anesthesia Postop Eval I Sum Postop Eval Completion status Anesthesia document: Postop Eval 1 completed: Yes Anesthesia Postop Eval I Summary Anesthesia Postop Eval I Summary: Anesthesia Postop Eval I: Assessment Summary Airway patent Yes 01/31/25 10:54 OPERATIONS SUPPORT REPRESENTATIVE.TNES Spontaneous unlabored Yes 01/31/25 10:54 OPERATIONS SUPPORT REPRESENTATIVE.TNES respirations Mental status nausea No 01/31/25 10:54 OPERATIONS SUPPORT REPRESENTATIVE.TNES Vomiting No 01/31/25 10:54 OPERATIONS SUPPORT REPRESENTATIVE.TNES Anesthesia Postop Eval I: Fluid Summary Crystalloid volume administer 1,000 01/31/25 10:54 OPERATIONS SUPPORT REPRESENTATIVE.TNES (ml) Colloids volume administered ( ml) Blood Product volume administered (ml) Total IV fluid infused 1,000 01/31/25 10:54 OPERATIONS SUPPORT REPRESENTATIVE.TNES Anesthesia Postop Eval I: Summary Notes Anesthesia Complication No 01/31/25 10:54 OPERATIONS SUPPORT REPRESENTATIVE.TNES Anesthesia Complication Comment: Post-operative progress note Anesthesia: Postop Eval II Evaluation Mental status: Awake Pain Level: 0 nausea: No Vomiting: No Complications Anesthesia Complication: No
== END 2025-01-31 13:26 | disposition home or self-care (01) ==
LOC: SDC 05:35 → AC 05:35
PROVIDERS: Anesthesiology; PCP Internal Medicine; Referring Provider Obstetrics & Gynecology; Visit Provider Obstetrics & Gynecology
DX: D25.1 Intramural leiomyoma of uterus (principal); Z68.41 Body mass index [BMI] 40.0-44.9, adult; E66.01 Morbid (severe) obesity due to excess calories; D64.9 Anemia, unspecified; F17.210 Nicotine dependence, cigarettes, uncomplicated; I25.10 Atherosclerotic heart disease of native coronary artery without angina pectoris; Z79.899 Other long term (current) drug therapy; I10 Essential (primary) hypertension; K21.9 Gastro-esophageal reflux disease without esophagitis; E78.5 Hyperlipidemia, unspecified; Z79.02 Long term (current) use of antithrombotics/antiplatelets; D25.0 Submucous leiomyoma of uterus; D25.2 Subserosal leiomyoma of uterus; N84.0 Polyp of corpus uteri
CPT/HCPCS: 58571; 00840; S2900; 36415; 80053; 82962; 83735; 85025; 85027; 86850; 86900; 86901; 88307; 93005; J2405; J3475